=== PATIENT | female | born 1955 | race Caucasian/White ===

== ENCOUNTER 2019-07-04 11:00 | Inpatient (IN) ==
[2019-07-04 11:40] LABS: Appearance Urine Clear (Clear); Blood Urine Negative (Negative); Color Urine Dark Yellow; Glucose Urine UA Negative (Negative); Ketones Urine Negative (Negative); Leukocyte Esterase Urine Negative (Negative); Nitrite Urine Negative (Negative); Protein Urine Negative (Negative); Specific Gravity Urine 1.006 (1.000-1.030); Urobilinogen Urine Negative (Negative); pH Urine 6.5 (4.5-7.5)
[2019-07-04 11:42] LABS: Basophils # (auto) 0.06 K/uL (0-0.2); Eosinophils # (auto) 0.03 K/uL (0-0.5); Eosinophils % (auto) 0.5 %; Hematocrit (blood only) 39.9 % (37-47); Hemoglobin 13.7 g/dL (12.0-16.0); Immature Granulocytes # (auto) 0.01 K/uL (0.00-0.02); Immature Granulocytes % (auto) 0.2 %; Lymphocytes # (auto) 1.04 K/uL (1.2-3.4); Lymphocytes % (auto) 17.2 %; Mean Corpuscular Hemoglobin 31.8 pg (25-34); Mean Corpuscular Hgb Conc 34.3 g/dL (32-36); Mean Corpuscular Volume 92.6 fL (80-100); Mean Platelet Volume 12.2 fL (7.4-10.4); Monocytes # (auto) 0.48 K/uL (0.11-0.59); Monocytes % (auto) 7.9 %; Neutrophils # (auto) 4.44 K/uL (1.4-6.5); Neutrophils % (auto) 73.2 %; Platelet Count 324 K/uL (130-400); RDW Coefficient of Variation 15.2 % (11.5-14.5); Red Blood Count 4.31 M/uL (4.2-5.4); White Blood Count 6.06 K/uL (4.8-10.8)
[2019-07-04 12:07] LABS: Alanine Aminotransferase 663 U/L (12-78); Albumin Level 3.6 gm/dl (3.4-5.0); Alkaline Phosphatase 569 U/L (45-117); Aspartate Aminotransferase 255 U/L (15-37); Bilirubin,Total 22.3 mg/dl (0.2-1); Blood Urea Nitrogen 11 mg/dl (7-18); Calcium 9.5 mg/dl (8.5-10.1); Carbon Dioxide 23 mmol/L (21-32); Chloride 102 mmol/L (98-107); Glucose 112 mg/dl (70-99); Potassium 3.5 mmol/L (3.5-5.1); Sodium 133 mmol/L (136-145)
[2019-07-04 12:10] LABS: Bilirubin Urine 2+ (Negative); Ictotest Urine Positive (Negative)
[2019-07-04] MEDS: SODIUM CHLORIDE 0.9% 1000ML 1,000 ML IV SCH ×3 (12:16→17:50)
[2019-07-04 12:30] LABS: iSTAT Creatinine 1.2 mg/dl (0.6-1.3); iSTAT Hemoglobin 14.3 g/dl (12.0-16.0); iSTAT Ionized Calcium 1.13 mmol/l (1.12-1.32); iSTAT Potassium 3.9 mEq/L (3.3-5.0)
[2019-07-04 12:42] LABS: Bilirubin Direct 17.9 mg/dl (0-0.2)
[2019-07-04] MEDS ORDERED: IOVERSOL 100ml IV PRN (12:43)
--- NOTE | 2019-07-04 13:01 | CT Scan Report ---
CT SCAN OF THE ABDOMEN AND PELVIS WITH IV CONTRAST CLINICAL HISTORY: Jaundice. COMPARISON STUDY: No priors. TECHNIQUE: Following the IV administration of 92 cc of Optiray 320, CT scan of the abdomen and pelvi s is performed from the lung bases to the proximal femora. Images are reviewed in the axial, sagittal , and coronal planes. IV contrast was administered without complication. A dose lowering technique wa s utilized adhering to the principles of ALARA. CT DOSE: 333.71 mGy.cm FINDINGS: Lung bases: The heart is normal in size and without pericardial effusion. Emphysematous change is andrea pected. There is no airspace consolidation or pleural effusion. Dependent atelectasis is noted. Liver: The contrast-enhanced liver is normal in size, contour, and attenuation. There is moderate int rahepatic biliary ductal dilatation. The hepatic veins and portal veins are patent. There is a 1.5 cm lesion suggested in the right lobe of the liver on image #66. Gallbladder: The gallbladder is distended but otherwise normal in appearance. Spleen: Normal in size and attenuation. Pancreas: There is a 2.8 x 2.6 cm infiltrative low-attenuation lesion seen in the pancreatic head/nec k junction on image #132. There is atrophy of the distal pancreas with marked dilatation of the upstr eam pancreatic duct. This measures up to 10 mm in diameter. The mass lesion abuts but does not encase the superior mesenteric vein. This does not abut the superior mesenteric artery. The splenic vein is patent. Adrenal glands: Unremarkable. Kidneys: The contrast enhanced kidneys are normal in size and without hydronephrosis. The kidneys enh ance symmetrically. Abdominal vasculature: The abdominal aorta is normal in course and caliber noting mild atheroscleroti c calcification. Bowel: The small bowel and colon are normal in course and caliber. The appendix is well-visualized a nd normal. Peritoneum: There is no intraperitoneal free air or abdominal ascites. Lymphadenopathy: None. Pelvic viscera: The bladder, uterus, and adnexa are normal as imaged. Skeletal structures: The skeletal structures are osteopenic. No lytic or blastic lesions are seen. Ch ronic deformity and postoperative change is noted in the right hip. IMPRESSION: 1. There is a 2.8 cm infiltrative low-attenuation mass lesion seen at the pancreatic head/neck juncti on. Pancreatic adenocarcinoma is the diagnosis of exclusion and GI follow-up with ERCP and biopsy is recommended. 2. There is moderate intra and extrahepatic biliary ductal dilatation as well as dilatation of the pa ncreatic duct. 3. There is a 1.5 cm low-attenuation lesion suggested in the right hepatic lobe. Metastatic disease i s not excluded. 4. The pancreatic mass abuts does not encase the superior mesenteric vein. 5. Additional findings as above. Electronically signed by: Latrell San M.D. 07/04/2019 1:00 PM
--- NOTE | 2019-07-04 13:38 | Gastrointestinal Consultation ---
Date of Consultation July 04, 2019 Assessment & Plan (1) Jaundice: 64 year old generally healthy female who present w/ painless jaunidce after a course of Bactrim. She had CTAP given elevated LFT w/ TB > 20 which is concerning a 2.8 cm infiltrative low-attenuation mass lesion seen at the pancreatic head/neck junction abuts the SMV w/ double duct sign and a 1.5 cm low-attenuation lesion suggested in the right hepatic lobe. Metastatic disease is not excluded. DDX discussed w/ patient to include pancreatic CA +/- DILI Strict NPO Stat INR ERCP today for decompression Will need OP EGD/EUS for Bx Hold Bactrim, concern for DILI She has ongoing urinary symptoms, consider urinalysis Thank you for allowing us to participate in the care of this patient. Please call with any acute changes, questions or concerns. Please see addendum below with additional recommendation from my supervising physician. Present on Admission?: Yes (2) Pancreatic lesion: Present on Admission?: Yes Supervising Physician Co-Signing Physician Notes I performed a history and physical examination of the patient, including specifically on physical exam - soft, nontender abdomen. I have discussed the patient's management with Alivia. Please refer to the nurse practitioner's note for the documented findings and plan of care. 64 yrs old female patient presented with back pain and jaundice, recent use of Bactrim for UTI, imaging showed HOP mass with double duct sign, reports some chills and her bilirubin is >20. Need to evaluate for Pancreatic malignancy. Recommend: ERCP today for biliary decompression. EUS FNA next week as OP. Hold Bactrim and Macrobid for now. History of Present Illness Reason for Consultation: jaundice, panc pass Requesting Physician: Fabio Attending Physician: Dr. Guerra History of Present Illness 64 year old generally healthy female who presented w/ urinary symptoms. Initially treated w/ macrobid. She noted persistent urinary symptoms w/ intermittent upper back pain and was started on a course of Bactrim. Suggests that she noted about 24/48 hours ago she started noticing yellow skin/eyes which prompted ED evaluation. GI asked to evaluate as imaging concerning for pancreatic mass, liver lesion. Pt was seen in the ED, family at bedside. Notes somewhat decreased appetite for the past few months w/ associated 5/10 lb weight loss. Denies any other UGI symptoms - no nausea, vomiting, GERD, dysphagia. No change in bowel movements. No fevers but feels chillish. No CP, SOB + family history of HHT + family history of adenocarcinoma of unknown origin, concern for pancreatic in mom EGD/Colon: none CTAP: There is a 2.8 cm infiltrative low-attenuation mass lesion seen at the pancreatic head/neck junction. Pancreatic adenocarcinoma is the diagnosis of exclusion and GI follow-up with ERCP and biopsy is recommended. There is moderate intra and extrahepatic biliary ductal dilatation as well as dilatation of the pancreatic duct.There is a 1.5 cm low-attenuation lesion suggested in the right hepatic lobe. Metastatic disease is not excluded.The pancreatic mass abuts does not encase the superior mesenteric vein. Allergies Allergy/AdvReac Type Severity Reaction Status Date / Time No Known Allergies Allergy Unverified 07/04/19 12:55 Home Medications Home Medications Medication Instructions Recorded Confirmed Type sulfamethoxazole-trimethoprim 1 tab PO BID 07/04/19 07/04/19 History Patient History Medical History (Updated 07/04/19 @ 13:46 by Alivia Mabry) Jaundice Pancreatic lesion Social History Feels Safe at Home: Yes Smoking Status: Never smoker Review of Systems Constitutional: + chills, + anorexia and + weight loss; no fever and no fatigue Respiratory: no cough and no dyspnea Cardiovascular: no chest pain and no dyspnea Gastrointestinal: + early satiety; no abdominal pain, no coffee ground emesis, no hematemesis, no blood in stools and no melena Physical Exam Constitutional: well developed and well nourished Eyes: scleral icterus Neck: trachea midline Respiratory: normal respiratory effort Cardiovascular: Rate/Rhythm: regular rate and regular rhythm Gastrointestinal (Abdomen): Inspection/Auscultation: abdomen normal to inspection and normal bowel sounds Percussion/Palpation: abdomen soft; abdomen nontender, no guarding and abdomen not rigid Skin: + jaundice; no rashes Results & Data Vital Signs (Past 12 Hours) Vital Signs Temp Pulse Pulse Resp BP BP Pulse Ox 07/04/19 12:14 61 17 113/71 96 07/04/19 11:14 36.5 C 85 16 111/75 99 Laboratory Results 07/04/19 07/04/19 07/04/19 Range/Units 12:17 11: 11:28 WBC (4.8-10.8) K/uL RBC (4.2-5.4) M/uL Hgb (12.0-16.0) g/dL POC Hgb 14.3 (12.0-16.0) g/dl Hct (37-47) % POC Hct 42 (37-47) % MCV (80-100) fL MCH (25-34) pg MCHC (32-36) g/dL RDW Std Deviation (36.4-46.3) fL RDW Coeff of Rajesh (11.5-14.5) % Plt Count (130-400) K/uL MPV (7.4-10.4) fL Immature Gran % (Auto) % Neut % (Auto) % Lymph % (Auto) % [place] % (Auto) % Eos % (Auto) % Baso % (Auto) % Immature Gran # (Auto) (0.00-0.02) K/uL Neut # (Auto) (1.4-6.5) K/uL Lymph # (Auto) (1.2-3.4) K/uL [place] # (Auto) (0.11-0.59) K/uL Eos # (Auto) (0-0.5) K/uL Baso # (Auto) (0-0.2) K/uL POC Sodium 135 (135-144) mEq/L Sodium (136-145) mmol/L POC Potassium 3.9 (3.3-5.0) mEq/L Potassium (3.5-5.1) mmol/L POC Chloride 104 (101-112) mEq/L Chloride (98-107) mmol/L Carbon Dioxide (21-32) mmol/L POC Total CO2 24 (24-31) mEq/l Anion Gap (3-11) POC Anion Gap 12.0 L (16-25) mmol/L POC BUN 12 (7-18) mg/dl BUN (7-18) mg/dl Creatinine (0.6-1.2) mg/dl POC Creatinine 1.2 (0.6-1.3) mg/dl Est Cr Clr Drug Dosing Est GFR ( Amer) Est GFR (Non-Af Amer) BUN/Creatinine Ratio Glucose (70-99) mg/dl POC Glucose (other) 114 H (70-99) mg/dl Calcium (8.5-10.1) mg/dl POC Ioniz Calcium [place] 1.13 (1.12-1.32) mmol/l Total Bilirubin (0.2-1) mg/dl Direct Bilirubin (0-0.2) mg/dl AST (15-37) U/L ALT (12-78) U/L Alkaline Phosphatase (45-117) U/L Total Protein (6.4-8.2) gm/dl Albumin (3.4-5.0) gm/dl Globulin Albumin/Globulin Ratio Lipase (73-393) U/L Urine Color Dark Yellow Urine Appearance Clear (Clear) Urine pH 6.5 (4.5-7.5) Ur Specific [place] 1.006 (1.000-1.030) Urine Protein Negative (Negative) Urine Glucose (UA) Negative (Negative) Urine Ketones Negative (Negative) Urine Blood Negative (Negative) Urine Nitrite Negative (Negative) Urine Bilirubin 2+ H (Negative) Urine Urobilinogen Negative (Negative) Ur Leukocyte Esterase Negative (Negative) Miscellaneous Test Pending Miscellaneous Test 2 Pending 07/04/19 07/04/19 07/04/19 Range/Units 11:28 11:28 11:28 WBC 6.06 (4.8-10.8) K/uL RBC 4.31 (4.2-5.4) M/uL Hgb 13.7 (12.0-16.0) g/dL POC Hgb (12.0-16.0) g/dl Hct 39.9 (37-47) % POC Hct (37-47) % MCV 92.6 (80-100) fL MCH 31.8 (25-34) pg MCHC 34.3 (32-36) g/dL RDW Std Deviation 52.0 H (36.4-46.3) fL RDW Coeff of Rajesh 15.2 H (11.5-14.5) % Plt Count 324 (130-400) K/uL MPV 12.2 H (7.4-10.4) fL Immature Gran % (Auto) 0.2 % Neut % (Auto) 73.2 % Lymph % (Auto) 17.2 % [place] % (Auto) 7.9 % Eos % (Auto) 0.5 % Baso % (Auto) 1.0 % Immature Gran # (Auto) 0.01 (0.00-0.02) K/uL Neut # (Auto) 4.44 (1.4-6.5) K/uL Lymph # (Auto) 1.04 L (1.2-3.4) K/uL [place] # (Auto) 0.48 (0.11-0.59) K/uL Eos # (Auto) 0.03 (0-0.5) K/uL Baso # (Auto) 0.06 (0-0.2) K/uL POC Sodium (135-144) mEq/L Sodium 133 L (136-145) mmol/L POC Potassium (3.3-5.0) mEq/L Potassium 3.5 (3.5-5.1) mmol/L POC Chloride (101-112) mEq/L Chloride 102 (98-107) mmol/L Carbon Dioxide 23 (21-32) mmol/L POC Total CO2 (24-31) mEq/l Anion Gap 8.0 (3-11) POC Anion Gap (16-25) mmol/L POC BUN (7-18) mg/dl BUN 11 (7-18) mg/dl Creatinine (0.6-1.2) mg/dl POC Creatinine (0.6-1.3) mg/dl Est Cr Clr Drug Dosing TNP Est GFR ( Amer) TNP Est GFR (Non-Af Amer) TNP BUN/Creatinine Ratio TNP Glucose 112 H (70-99) mg/dl POC Glucose (other) (70-99) mg/dl Calcium 9.5 (8.5-10.1) mg/dl POC Ioniz Calcium [place] (1.12-1.32) mmol/l Total Bilirubin 22.3 H (0.2-1) mg/dl Direct Bilirubin 17.9 H (0-0.2) mg/dl AST 255 H (15-37) U/L ALT 663 H (12-78) U/L Alkaline Phosphatase 569 H (45-117) U/L Total Protein (6.4-8.2) gm/dl Albumin 3.6 (3.4-5.0) gm/dl Globulin TNP Albumin/Globulin Ratio TNP Lipase 176 (73-393) U/L Urine Color Urine Appearance (Clear) Urine pH (4.5-7.5) Ur Specific [place] (1.000-1.030) Urine Protein (Negative) Urine Glucose (UA) (Negative) Urine Ketones (Negative) Urine Blood (Negative) Urine Nitrite (Negative) Urine Bilirubin (Negative) Urine Urobilinogen (Negative) Ur Leukocyte Esterase (Negative) Miscellaneous Test Miscellaneous Test 2
[2019-07-04 14:03] LABS: Prothrombin Time 9.8 Seconds (9.0-12.0)
--- NOTE | 2019-07-04 15:13 | History & Physical Report ---
Date of Service July 04, 2019 Assessment & Plan (1) Jaundice: Jaundice is not clear in origin, possibly could be related to recent course of Bactrim-DILI. CT scan is concerning for 2.8 cm infiltrative low- attenuation mass seen in the pancreatic head/neck junction and SMV with double duct signs and a 1.5 cm low-attenuation lesion suggested the right hepatic lobe. Metastatic disease is not excluded. Differential diagnosis [facility] Vital signs every 4 hours Replenish electrolytes as needed Continue IV fluid hydration DVT prophylaxis SCDs and teds Continue n.p.o. Start INR INR ERCP today for decompression Will need OP EGD/EUS for Bx Hold Bactrim, concern for DILI She has ongoing urinary symptoms, consider urinalysis (2) Pancreatic lesion: Please see above the plan (3) Transaminitis: Patient will have ERCP. Continue n.p.o. Trend down transaminases Present on Admission?: Yes (4) Elevated bilirubin: Patient will have ERCP Trend down bilirubin. Appreciate GI recommendations and procedures. Follow-up with biopsy if any. Present on Admission?: Yes History of Present Illness Chief Complaint: Jaundice Primary Care Provider: Brigitte Decker MD Patient is a 64 years old female without significant past medical history who presents to the emergency room with a complaint of intermittent abdominal pain beginning 4 weeks ago. Patient noted that pain is diffuse and it was occurring while she was resting. At that time patient was in [place] in [place] and she visited urgent care where she was found to have urinary tract infection and treated with Macrobid which she took for 4 days. Patient was informed from the urgent care that she grew E. coli in her urine and then she was switched to Bactrim. Patient still states that her jaundice started yesterday and she started to have back pain again. At this time patient denies any pain and burning with urination. Patient denies fever, chills, chest pain, shortness of breath, abdominal pain, frequency or urgency and this time patient denies syncope or near syncope she also denies right upper quadrant pain hematemesis hematuria melena or dysuria. Patient reports taking Advil for back pain occasionally. Labs are reviewed WBC 6.06, hemoglobin 13.7, hematocrit 39.9, platelets 324. PT 9.8, INR 1, sodium 133, potassium 3.5, chloride 102, anion gap 8, BUN 11, creatinine 1.2, bilirubin 22.3, direct bilirubin 17.9, AST 255, ALT 663 alkaline phosphatase 569, BNP 226, lipase 176, TSH is 0.310., Urine 2+ bilirubin all other values negative. CT abdomen: There is a 2.8 cm infiltrative low-attenuation mass lesion seen at the pancreatic head neck junction. Pancreatic adenocarcinoma is a diagnosis of exclusion and GI follow-up with the ERCP and biopsy is recommended. Patient denies weight loss. There is a moderate intra-and extrahepatic biliary ductal dilatation as well as dilatation of the pancreatic duct. There is 1.5 cm low-attenuation lesion suggesting right hepatic lobe. Metastatic disease is not excluded. The pancreatic mass abuts does not encase the superior mesenteric vein. Decision was made to admit [facility] for further evaluation of jaundice. Allergies Allergy/AdvReac Type Severity Reaction Status Date / Time No Known Allergies Allergy Unverified 07/04/19 12:55 Home Medications Home Medications Medication Instructions Recorded Confirmed Type sulfamethoxazole-trimethoprim 1 tab PO BID 07/04/19 07/04/19 History Past Med/Surg History Medical History Jaundice (Acute) Pancreatic lesion (Acute) Surgical History No pertinent past surgical history Family History Other No pertinent family history Social History Preferred Language: Grenadian Communication Ability: Effective Coil Binder Required: No Beliefs That Will Affect Care: None Current Living Situation: Spouse Other Information That Helps Us Care for You: No Feels Safe at Home: Yes Safety Concerns: Feels Safe At This Time Smoking Status: Never smoker Hx Alcohol Use: Yes Alcohol type: wine Hx Substance Use: No Review of Systems Constitutional: + chills, + anorexia and + weight loss; no fever and no fatigue Gastrointestinal: + early satiety; no abdominal pain, no coffee ground emesis, no hematemesis, no blood in stools and no melena Physical Exam Constitutional: well developed and well nourished Neck: trachea midline Respiratory: normal respiratory effort Cardiovascular: Rate/Rhythm: regular rate and regular rhythm Gastrointestinal (Abdomen): Inspection/Auscultation: abdomen normal to inspection and normal bowel sounds Percussion/Palpation: abdomen soft; abdomen nontender, no guarding and abdomen not rigid Skin: + jaundice; no rashes Results & Data Vital Signs (Past 12 Hours) Vital Signs Temp Pulse Pulse Resp BP BP Pulse Ox 07/04/19 13:30 69 17 125/68 98 07/04/19 12:14 61 17 113/71 96 07/04/19 11:14 36.5 C 85 16 111/75 99 Code Status & VTE Plan VTE Prophylaxis Plan VTE Prophylaxis will be ordered: Yes PG Care Time/CCT Total # of Minutes Spent Total Time Spent with Patient: Total time spent is greater than 50% in coordination of care (as documented) at patient's floor/unit and/or counseling patient:
[2019-07-04] MEDS ORDERED: ALUMINUM/MAGNESIUM SUSP 30 ML UDC PO PRN (17:32)
[2019-07-04] MEDS ORDERED: ACETAMINOPHEN 325 MG TAB PO PRN (17:32)
[2019-07-04] MEDS ORDERED: KETOROLAC TROMETHAMINE 15 MG/ML VIAL IV PRN (17:32)
[2019-07-04] MEDS ORDERED: ZOLPIDEM TARTRATE 5 MG TAB PO PRN (17:32)
[2019-07-04] MEDS ORDERED: OXYCODONE HCL IR 5 MG TAB (IMMEDIATE RELEASE) PO PRN (17:32)
[2019-07-04] MEDS ORDERED: POLYETHYLENE (MIRALAX) 17 GM PACK PO PRN (17:32)
[2019-07-04] MEDS ORDERED: ONDANSETRON INJ 2 MG/ML 2 ML VIAL IV PRN (17:32)
[2019-07-04] MEDS ORDERED: MAGNESIUM HYDROXIDE SUSP 30 ML UDC PO PRN (17:32)
--- NOTE | 2019-07-04 17:51 | Emergency Department Note ---
Entered by Nadya Shell acting as a scribe for Tucker Guerra DO History of Present Illness General Chief complaint: Illness Stated complaint: REACTION TO MEDICATION Source: patient History of Present Illness Onset (ago): week(s) (4) Location: abdomen Pain Consistency: + intermittent Maximum Pain Intensity: 2 Exacerbated By: + rest Associated symptoms: + denies other symptoms (pain and burning with urination) and + other (back pain, jaundice, blood in urine) The patient is a 64 year old female who presents to the Emergency Room with complaints of intermittent abdominal pain beginning 4 weeks ago. She notes the pain is worse at night and while resting. The patient states she initially thought the pain was GERD, but notes it then moved into her back. She reports blood in her urine two weeks ago while in [place]. The patient states she visited an urgent care and was placed on Macrobid, which she took for 4 days, for an UTI. She notes she then received a call from the urgent care stating she had E.coli in her urine and was switched to Bactrim. The patient reports jaundice beginning yesterday. She notes her back pain returned. The patient denies pain and burning with urination. The patient denies a history of cancer, regular Tylenol use, and regular alcohol use. She reports she has been taking Advil for the back pain. 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 and A total of 10 systems reviewed and were otherwise negative Physical Exam Vital Signs Vital Signs - 24 hr 07/04/19 11:14 07/04/19 12:14 07/04/19 13:30 Temperature 36.5 C Temperature Source Oral Pulse Rate 85 Pulse Rate [Apical] 61 69 Pulse Rhythm [Apical] Regular Regular Respiratory Rate 16 17 17 Respiratory Effort / Characteristics Non-Labored Spontaneous Respiratory Depth Normal Normal Respiratory Pattern Regular Blood Pressure 111/75 Blood Pressure [Right Arm] 113/71 125/68 Blood Pressure Mean 87 Blood Pressure Mean [Right Arm] 85 87 Blood Pressure Position Sitting Pulse Oximetry 99 96 98 Oxygen Delivery Method Room Air Room Air Sepsis Recent Fever Within 48 Hours No Sepsis New/Unexplained Change in Mental Status No Sepsis Action Taken by Nursing No Action Required 07/04/19 15:00 Temperature Temperature Source Pulse Rate Pulse Rate [Apical] 71 Pulse Rhythm [Apical] Regular Respiratory Rate 18 Respiratory Effort / Characteristics Non-Labored Spontaneous Respiratory Depth Normal Respiratory Pattern Regular Blood Pressure Blood Pressure [Right Arm] 122/74 Blood Pressure Mean Blood Pressure Mean [Right Arm] 90 Blood Pressure Position Pulse Oximetry 96 Oxygen Delivery Method Room Air Sepsis Recent Fever Within 48 Hours Sepsis New/Unexplained Change in Mental Status Sepsis Action Taken by Nursing GENERAL: alert, well nourished, no distress, non-toxic, sitting up in bed EYE EXAM: normal conjunctiva OROPHARYNX: no exudate, no erythema, lips, buccal mucosa, and tongue normal and mucous membranes are moist NECK: supple, no nuchal rigidity, no adenopathy, non-tender LUNGS: Clear to auscultation. Normal chest wall mechanics HEART: no murmurs, S1 normal and S2 normal ABDOMEN: Faint tenderness in the epigastric region, abdomen soft, normo-active bowel sounds, no masses, no rebound or guarding. BACK: Back is symmetrical on inspection and there is no deformity, no midline tenderness, no CVA tenderness. SKIN: Jaundiced throughout UPPER EXTREMITIES: upper extremities are grossly normal. LOWER EXTREMITIES: No pitting edema. NEURO EXAM: Normal sensorium, cranial nerves II-XII grossly intact, normal speech, no gross weakness of arms, no gross weakness of legs. Course Course ED COURSE: Vital signs were reviewed and showed situational hypertension and tachycardia. The patients medical record was reviewed The above diagnostic studies were performed and reviewed. ED treatments and interventions as stated above. 1203: The patient was evaluated in room C06. A complete history and physical examination was performed. 1310: Upon reevaluation, the patient is resting more comfortably.I discussed my findings with the patient and she understands and agrees with the treatment plan. Based on the patients age, coexisting illnesses, exam and lab findings the decision to treat as an inpatient was made. I reviewed the patient's case with Dr. Mccarthy -Gastroenterology. Dr. Bell - [facility] Hospitalist will evaluate the patient for further management. The patient remained stable while under my care. The patient will be evaluated for further management. Administered Medications Sodium Chloride (Nss 1000ml) 1,000 mls @ 80 mls/hr IV .[id number] COLT Stop: 08/03/19 17:31 Last Admin: 07/04/19 17:50 Dose: 80 mls/hr Documented by: [id number] Discontinued Medications Sodium Chloride (Nss 1000ml) 1,000 mls @ 999 mls/hr IV .[id number] COLT Stop: 07/04/19 14:15 Last Infusion: 07/04/19 13:52 Dose: 0 mls/hr Documented by: [id number] Admin: 07/04/19 12:55 Dose: 999 mls/hr Documented by: [id number] Infusion: 07/04/19 12:55 Dose: 999 mls/hr Documented by: [id number] Admin: 07/04/19 12:16 Dose: 999 mls/hr Documented by: [id number] Ioversol (Optiray 320 100ml) 92 ml IV ONCE PRN PRN Reason: Interaction Checking Stop: 07/08/19 12:42 Last Admin: 07/04/19 12:43 Dose: 92 ml Documented by: [id number] Medical Decision Making Differential Diagnosis Differential diagnoses includes but is not limited to gastritis, peptic ulcer disease, GERD, gallbladder disease, pancreatitis, small bowel obstruction, acute coronary syndrome, pericarditis, ischemic bowel, irritable bowel disease, irri table bowel syndrome, appendicitis, diverticulitis, malignancy, hernia, urinary tract infection, torsion, /ectopic , perforation, trauma, infectious. Medical Records Attestation: I reviewed the patient's medical records. Home Medications Current Medication List: was personally reviewed by me Laboratory Data Attestation: I reviewed the patient's lab results. Result diagrams: 07/04/19 11:28 07/04/19 11:28 Lab Results 07/04/19 07/04/19 07/04/19 Range/Units 11:28 11:28 11:28 WBC 6.06 (4.8-10.8) K/uL RBC 4.31 (4.2-5.4) M/uL Hgb 13.7 (12.0-16.0) g/dL POC Hgb (12.0-16.0) g/dl Hct 39.9 (37-47) % POC Hct (37-47) % MCV 92.6 (80-100) fL MCH 31.8 (25-34) pg MCHC 34.3 (32-36) g/dL RDW Std Deviation 52.0 H (36.4-46.3) fL RDW Coeff of Rajesh 15.2 H (11.5-14.5) % Plt Count 324 (130-400) K/uL MPV 12.2 H (7.4-10.4) fL Immature Gran % (Auto) 0.2 % Neut % (Auto) 73.2 % Lymph % (Auto) 17.2 % [place] % (Auto) 7.9 % Eos % (Auto) 0.5 % Baso % (Auto) 1.0 % Immature Gran # (Auto) 0.01 (0.00-0.02) K/uL Neut # (Auto) 4.44 (1.4-6.5) K/uL Lymph # (Auto) 1.04 L (1.2-3.4) K/uL [place] # (Auto) 0.48 (0.11-0.59) K/uL Eos # (Auto) 0.03 (0-0.5) K/uL Baso # (Auto) 0.06 (0-0.2) K/uL PT (9.0-12.0) Seconds INR (0.9-1.1) POC Sodium (135-144) mEq/L Sodium 133 L (136-145) mmol/L POC Potassium (3.3-5.0) mEq/L Potassium 3.5 (3.5-5.1) mmol/L POC Chloride (101-112) mEq/L Chloride 102 (98-107) mmol/L Carbon Dioxide 23 (21-32) mmol/L POC Total CO2 (24-31) mEq/l Anion Gap 8.0 (3-11) POC Anion Gap (16-25) mmol/L POC BUN (7-18) mg/dl BUN 11 (7-18) mg/dl Creatinine (0.6-1.2) mg/dl POC Creatinine (0.6-1.3) mg/dl Est Cr Clr Drug Dosing TNP Est GFR ( Amer) TNP Est GFR (Non-Af Amer) TNP BUN/Creatinine Ratio TNP Glucose 112 H (70-99) mg/dl POC Glucose (other) (70-99) mg/dl Calcium 9.5 (8.5-10.1) mg/dl POC Ioniz Calcium [place] (1.12-1.32) mmol/l Total Bilirubin 22.3 H (0.2-1) mg/dl Direct Bilirubin 17.9 H (0-0.2) mg/dl AST 255 H (15-37) U/L ALT 663 H (12-78) U/L Alkaline Phosphatase 569 H (45-117) U/L Total Protein (6.4-8.2) gm/dl Albumin 3.6 (3.4-5.0) gm/dl Globulin TNP Albumin/Globulin Ratio TNP Lipase 176 (73-393) U/L Urine Color Urine Appearance (Clear) Urine pH (4.5-7.5) Ur Specific [place] (1.000-1.030) Urine Protein (Negative) Urine Glucose (UA) (Negative) Urine Ketones (Negative) Urine Blood (Negative) Urine Nitrite (Negative) Urine Bilirubin (Negative) Urine Urobilinogen (Negative) Ur Leukocyte Esterase (Negative) Hepatitis C Ab Screen (Neg) 07/04/19 07/04/19 07/04/19 Range/Units 11:28 11:28 11:29 WBC (4.8-10.8) K/uL RBC (4.2-5.4) M/uL Hgb (12.0-16.0) g/dL POC Hgb (12.0-16.0) g/dl Hct (37-47) % POC Hct (37-47) % MCV (80-100) fL MCH (25-34) pg MCHC (32-36) g/dL RDW Std Deviation (36.4-46.3) fL RDW Coeff of Rajesh (11.5-14.5) % Plt Count (130-400) K/uL MPV (7.4-10.4) fL Immature Gran % (Auto) % Neut % (Auto) % Lymph % (Auto) % [place] % (Auto) % Eos % (Auto) % Baso % (Auto) % Immature Gran # (Auto) (0.00-0.02) K/uL Neut # (Auto) (1.4-6.5) K/uL Lymph # (Auto) (1.2-3.4) K/uL [place] # (Auto) (0.11-0.59) K/uL Eos # (Auto) (0-0.5) K/uL Baso # (Auto) (0-0.2) K/uL PT 9.8 (9.0-12.0) Seconds INR 1.0 (0.9-1.1) POC Sodium (135-144) mEq/L Sodium (136-145) mmol/L POC Potassium (3.3-5.0) mEq/L Potassium (3.5-5.1) mmol/L POC Chloride (101-112) mEq/L Chloride (98-107) mmol/L Carbon Dioxide (21-32) mmol/L POC Total CO2 (24-31) mEq/l Anion Gap (3-11) POC Anion Gap (16-25) mmol/L POC BUN (7-18) mg/dl BUN (7-18) mg/dl Creatinine (0.6-1.2) mg/dl POC Creatinine (0.6-1.3) mg/dl Est Cr Clr Drug Dosing Est GFR ( Amer) Est GFR (Non-Af Amer) BUN/Creatinine Ratio Glucose (70-99) mg/dl POC Glucose (other) (70-99) mg/dl Calcium (8.5-10.1) mg/dl POC Ioniz Calcium [place] (1.12-1.32) mmol/l Total Bilirubin (0.2-1) mg/dl Direct Bilirubin (0-0.2) mg/dl AST (15-37) U/L ALT (12-78) U/L Alkaline Phosphatase (45-117) U/L Total Protein (6.4-8.2) gm/dl Albumin (3.4-5.0) gm/dl Globulin Albumin/Globulin Ratio Lipase (73-393) U/L Urine Color Dark Yellow Urine Appearance Clear (Clear) Urine pH 6.5 (4.5-7.5) Ur Specific [place] 1.006 (1.000-1.030) Urine Protein Negative (Negative) Urine Glucose (UA) Negative (Negative) Urine Ketones Negative (Negative) Urine Blood Negative (Negative) Urine Nitrite Negative (Negative) Urine Bilirubin 2+ H (Negative) Urine Urobilinogen Negative (Negative) Ur Leukocyte Esterase Negative (Negative) Hepatitis C Ab Screen Neg (Neg) 07/04/19 Range/Units 12:17 WBC (4.8-10.8) K/uL RBC (4.2-5.4) M/uL Hgb (12.0-16.0) g/dL POC Hgb 14.3 (12.0-16.0) g/dl Hct (37-47) % POC Hct 42 (37-47) % MCV (80-100) fL MCH (25-34) pg MCHC (32-36) g/dL RDW Std Deviation (36.4-46.3) fL RDW Coeff of Rajesh (11.5-14.5) % Plt Count (130-400) K/uL MPV (7.4-10.4) fL Immature Gran % (Auto) % Neut % (Auto) % Lymph % (Auto) % [place] % (Auto) % Eos % (Auto) % Baso % (Auto) % Immature Gran # (Auto) (0.00-0.02) K/uL Neut # (Auto) (1.4-6.5) K/uL Lymph # (Auto) (1.2-3.4) K/uL [place] # (Auto) (0.11-0.59) K/uL Eos # (Auto) (0-0.5) K/uL Baso # (Auto) (0-0.2) K/uL PT (9.0-12.0) Seconds INR (0.9-1.1) POC Sodium 135 (135-144) mEq/L Sodium (136-145) mmol/L POC Potassium 3.9 (3.3-5.0) mEq/L Potassium (3.5-5.1) mmol/L POC Chloride 104 (101-112) mEq/L Chloride (98-107) mmol/L Carbon Dioxide (21-32) mmol/L POC Total CO2 24 (24-31) mEq/l Anion Gap (3-11) POC Anion Gap 12.0 L (16-25) mmol/L POC BUN 12 (7-18) mg/dl BUN (7-18) mg/dl Creatinine (0.6-1.2) mg/dl POC Creatinine 1.2 (0.6-1.3) mg/dl Est Cr Clr Drug Dosing Est GFR ( Amer) Est GFR (Non-Af Amer) BUN/Creatinine Ratio Glucose (70-99) mg/dl POC Glucose (other) 114 H (70-99) mg/dl Calcium (8.5-10.1) mg/dl POC Ioniz Calcium [place] 1.13 (1.12-1.32) mmol/l Total Bilirubin (0.2-1) mg/dl Direct Bilirubin (0-0.2) mg/dl AST (15-37) U/L ALT (12-78) U/L Alkaline Phosphatase (45-117) U/L Total Protein (6.4-8.2) gm/dl Albumin (3.4-5.0) gm/dl Globulin Albumin/Globulin Ratio Lipase (73-393) U/L Urine Color Urine Appearance (Clear) Urine pH (4.5-7.5) Ur Specific [place] (1.000-1.030) Urine Protein (Negative) Urine Glucose (UA) (Negative) Urine Ketones (Negative) Urine Blood (Negative) Urine Nitrite (Negative) Urine Bilirubin (Negative) Urine Urobilinogen (Negative) Ur Leukocyte Esterase (Negative) Hepatitis C Ab Screen (Neg) Imaging Data Radiologist's Impression: Radiology results as stated below per my review and the radiologist's interpretation: CT SCAN OF THE ABDOMEN AND PELVIS WITH IV CONTRAST CLINICAL HISTORY: Jaundice. COMPARISON STUDY: No priors. TECHNIQUE: Following the IV administration of 92 cc of Optiray 320, CT scan of the abdomen and pelvis is performed from the lung bases to the proximal femora. Images are reviewed in the axial, sagittal, and coronal planes. IV contrast was administered without complication. A dose lowering technique was utilized adhering to the principles of ALARA. CT DOSE: 333.71 mGy.cm FINDINGS: Lung bases: The heart is normal in size and without pericardial effusion. Emphysematous change is suspected. There is no airspace consolidation or pleural effusion. Dependent atelectasis is noted. Liver: The contrast-enhanced liver is normal in size, contour, and attenuation. There is moderate intrahepatic biliary ductal dilatation. The hepatic veins and portal veins are patent. There is a 1.5 cm lesion suggested in the right lobe of the liver on image #66. Gallbladder: The gallbladder is distended but otherwise normal in appearance. Spleen: Normal in size and attenuation. Pancreas: There is a 2.8 x 2.6 cm infiltrative low-attenuation lesion seen in the pancreatic head/neck junction on image #132. There is atrophy of the distal pancreas with marked dilatation of the upstream pancreatic duct. This measures up to 10 mm in diameter. The mass lesion abuts but does not encase the superior mesenteric vein. This does not abut the superior mesenteric artery. The splenic vein is patent. Adrenal glands: Unremarkable. Kidneys: The contrast enhanced kidneys are normal in size and without hydronephrosis. The kidneys enhance symmetrically. Abdominal vasculature: The abdominal aorta is normal in course and caliber noting mild atherosclerotic calcification. Bowel: The small bowel and colon are normal in course and caliber. The appendix is well-visualized and normal. Peritoneum: There is no intraperitoneal free air or abdominal ascites. Lymphadenopathy: None. Pelvic viscera: The bladder, uterus, and adnexa are normal as imaged. Skeletal structures: The skeletal structures are osteopenic. No lytic or blastic lesions are seen. Chronic deformity and postoperative change is noted in the right hip. IMPRESSION: 1. There is a 2.8 cm infiltrative low-attenuation mass lesion seen at the pancreatic head/neck junction. Pancreatic adenocarcinoma is the diagnosis of exclusion and GI follow-up with ERCP and biopsy is recommended. 2. There is moderate intra and extrahepatic biliary ductal dilatation as well as dilatation of the pancreatic duct. 3. There is a 1.5 cm low-attenuation lesion suggested in the right hepatic lobe. Metastatic disease is not excluded. 4. The pancreatic mass abuts does not encase the superior mesenteric vein. 5. Additional findings as above. Electronically signed by: Latrell San M.D. 07/04/2019 1:00 PM Blood Pressure Blood Pressure Findings: Elevated blood pressure Blood Pressure Disposition: elevated BP felt to be situational MDM Narrative Patient is a 64-year-old female who presents to the ER for abdominal pain which is been present for the past 4 weeks which is been dull going through to the back. She notes an past 2 weeks she was treated for UTI with Macrobid and Bactrim. Past 4 days she has become more jaundiced. IV was status post orders obtained and showed no significant leukocytosis or anemia. BMP was unremarkable with exception of a mild hyponatremia. Creatinine was 1.2 but was obtained from POC due to the icterus. Bilirubin was 22 direct bilirubin was 18 AST was 255 ALT was 660 alk phos was elevated at 570 CT the abdomen pelvis showed concern for an obstructive lesion at the head of the pancreas. UA was unremarkable. Discussed with hospitalist, the patient and the family as well as GI. Patient will be taken to the Endo suite for a scope. Patient family were updated at bedside and patient was admitted to the hospital for further work-up. Impression & Plan Transaminitis, Elevated bilirubin, Jaundice, Pancreatic lesion Discharge Plan Visit Data Chief Complaint: Illness Stated Complaint: REACTION TO MEDICATION ED Provider: Tucker Guerra Discharge Problem: Transaminitis, Elevated bilirubin, Jaundice, Pancreatic lesion Patient Disposition: Being Evaluated by Hospitalist Discharge Instructions Interventions: ED Discharge Assessment Last Done: 07/04/19 17:05 The danielitoibe's documentation has been prepared under my direction and personally reviewed by me in its entirety. I confirm that the note above accurately reflects all work, treatment, procedures, and medical decision making performed by me.
[2019-07-04 18:46] LABS: Thyroid Stimulating Hormone 0.31 uIu/ml (0.300-4.500)
--- NOTE | 2019-07-04 20:36 | Anesthesiology Consultation ---
Date of Service July 04, 2019 History Surgery Operation Date: 07/04/19 14:30 Proposed Procedures p Endoscopic Retrograde Cholangiopancreatogram - Palak Mccarthy MD Height/Weight Height: 5 ft 8 in Weight: 70.7 kg Allergies Allergy/AdvReac Type Severity Reaction Status Date / Time No Known Allergies Allergy Unverified 07/04/19 12:55 Medications Home Medications Medication Instructions Recorded Confirmed Last Taken sulfamethoxazole-trimethoprim 1 tab PO BID 07/04/19 07/04/19 07/04/19 Active Medications Generic Name Dose Route Start Last Admin Trade Name Freq PRN Reason Stop Dose Admin Sodium Chloride 1,000 mls @ 80 mls/hr 07/04/19 17:32 07/04/19 17:50 Nss 1000ml IV 08/03/19 17:31 80 mls/hr .[id number] COLT Administration Past Medical History Medical History Jaundice (Acute) Pancreatic lesion (Acute) Past Family History Family History Other No pertinent family history Past Surgical History Surgical History No pertinent past surgical history Social History Smoking Status: Never smoker Hx Alcohol Use: Yes Alcohol type: wine alcohol intake frequency: a few times a month Hx Substance Use: No Physical Exam Vital Signs Last Vital Signs Temp 36.8 C 07/04/19 20:01 Pulse 64 07/04/19 20:01 Resp 18 07/04/19 20:01 BP 120/75 07/04/19 20:01 Pulse Ox 96 07/04/19 20:01 Testing Laboratory Results 07/04/19 11:28 07/04/19 11:28 PT 9.8 Seconds (9.0-12.0) 07/04/19 11: INR 1.0 (0.9-1.1) 07/04/19 11: Urine Color Dark Yellow 07/04/19 11:29 Urine Appearance Clear (Clear) 07/04/19 11: Urine pH 6.5 (4.5-7.5) 07/04/19 11: Ur Specific [place] 1.006 (1.000-1.030) 11/29/19 11:29 Urine Protein Negative (Negative) 07/04/19 11:29 Urine Glucose (UA) Negative (Negative) 07/04/19 11:29 Urine Ketones Negative (Negative) 07/04/19 11:29 Urine Nitrite Negative (Negative) 07/04/19 11:29 Ur Leukocyte Esterase Negative (Negative) 07/04/19 11:29 07/04/19 12:17 POC Glucose (other) 114 H
--- NOTE | 2019-07-04 21:52 | Progress Note ---
Date of Service July 04, 2019 Subjective ERCP is schedule by OR to be done tomorrow at 7:30 AM Results & Data Vital Signs (Past 12 Hours) Vital Signs Temp Pulse Pulse Pulse Resp BP BP 07/04/19 20:01 36.8 C 64 18 07/04/19 18:12 74 07/04/19 17:38 37.1 C 72 16 124/67 07/04/19 17:00 84 17 07/04/19 15:00 71 18 07/04/19 13:30 69 17 07/04/19 12:14 61 17 07/04/19 11:14 36.5 C 85 16 111/75 BP Pulse Ox 07/04/19 20:01 120/75 96 07/04/19 18:12 07/04/19 17:38 97 07/04/19 17:00 144/72 H 100 07/04/19 15:00 122/74 96 07/04/19 13:30 125/68 98 07/04/19 12:14 113/71 96 07/04/19 11:14 99
[2019-07-05] MEDS: SODIUM CHLORIDE 0.9% 1000ML 1,000 ML IV SCH (05:48)
[2019-07-05 06:19] LABS: Basophils # (auto) 0.05 K/uL (0-0.2); Basophils % (auto) 1.1 %; Eosinophils # (auto) 0.01 K/uL (0-0.5); Eosinophils % (auto) 0.2 %; Hematocrit (blood only) 33.2 % (37-47); Hemoglobin 11.5 g/dL (12.0-16.0); Immature Granulocytes # (auto) 0.01 K/uL (0.00-0.02); Immature Granulocytes % (auto) 0.2 %; Lymphocytes # (auto) 0.82 K/uL (1.2-3.4); Lymphocytes % (auto) 18.3 %; Mean Corpuscular Hgb Conc 34.6 g/dL (32-36); Mean Corpuscular Volume 92.5 fL (80-100); Mean Platelet Volume 11.8 fL (7.4-10.4); Monocytes # (auto) 0.32 K/uL (0.11-0.59); Monocytes % (auto) 7.1 %; Neutrophils # (auto) 3.27 K/uL (1.4-6.5); Neutrophils % (auto) 73.1 %; Platelet Count 262 K/uL (130-400); RDW Coefficient of Variation 15.3 % (11.5-14.5); RDW Standard Deviation 51.8 fL (36.4-46.3); Red Blood Count 3.59 M/uL (4.2-5.4); White Blood Count 4.48 K/uL (4.8-10.8)
[2019-07-05 06:28] LABS: Partial Thromboplastin Ratio 0.9; Partial Thromboplastin Time 23.8 Seconds (21.0-31.0); Prothrombin Time 10.5 Seconds (9.0-12.0)
[2019-07-05] MEDS ORDERED: fentaNYL citrate 100 MCG/2 ML VIAL ONE (06:58)
[2019-07-05] MEDS ORDERED: MIDAZOLAM HCL 1 MG/ML 2ML VIAL ONE (06:58)
--- NOTE | 2019-07-05 07:20 | History & Physical Bridge Note ---
Date of Service July 05, 2019 History & Physical Bridge Note I have examined the patient, reviewed the History & Physical and in the interval since the performance of the History & Physical I have noted the following changes of clinical significance: no changes noted
[2019-07-05 07:24] LABS: Albumin Level 2.7 gm/dl (3.4-5.0); BUN Creatinine Ratio 12.6 (10-20); Bilirubin,Total 18.3 mg/dl (0.2-1); Calcium 8.5 mg/dl (8.5-10.1); Creatinine Clr Calc Pharmacy 59.1 ml/min; Est GFR (African American) 71.5; Est GFR (Non-African American) 61.7; Globulin 2.6 gm/dl (2.5-4.0); Potassium 3.9 mmol/L (3.5-5.1); Total Protein 5.3 gm/dl (6.4-8.2)
[2019-07-05] MEDS ORDERED: INDOMETHACIN 50 MG SUPP PR ONE (07:25)
[2019-07-05 07:27] LABS: Estimated Average Glucose 117 mg/dl; Hemoglobin A1C 5.7 % (4.5-5.6)
[2019-07-05] MEDS ORDERED: INDOMETHACIN 50 MG SUPP PR SCH (07:30)
[2019-07-05] MEDS ORDERED: PROMETHAZINE HCL 6.25 MG in SODIUM CHLORIDE 0.9% 50 ML IV PRN (07:32)
[2019-07-05] MEDS ORDERED: ePHEDrine sulfate 50 MG/ML AMP IV PRN (07:32)
[2019-07-05] MEDS ORDERED: fentaNYL citrate 100 MCG/2 ML VIAL IV PRN (07:32)
[2019-07-05] MEDS ORDERED: ATROPINE SULFATE 0.1 MG/ML 10ML SYR IV PRN (07:32)
[2019-07-05] MEDS ORDERED: ONDANSETRON INJ 2 MG/ML 2 ML VIAL IV PRN (07:32)
[2019-07-05] MEDS ORDERED: SUCCINYLCHOLINE CHLORIDE 20 MG/ML 10 ML VIAL ONE (07:51)
[2019-07-05] MEDS ORDERED: PROPOFOL IV EMULSION 10 MG/ML 20 ML VIAL IV ONE (07:52)
[2019-07-05] MEDS ORDERED: LIDOCAINE HCL 2% 2 ML VIAL/AMP(20MG/ML) INFIL ONE (07:52)
[2019-07-05] MEDS ORDERED: ONDANSETRON INJ 2 MG/ML 2 ML VIAL ONE (07:54)
[2019-07-05] MEDS ORDERED: DEXAMETHASONE SOD INJ 4 MG/ML VIAL ONE (07:54)
[2019-07-05] MEDS ORDERED: LARYING-O-JET KIT (LTA) ONE (08:02)
--- NOTE | 2019-07-05 08:12 | Operative Report ---
Post Operative Report Pre & Post Diagnosis Operation Date: 07/04/19 14:30 <No data on this case meets the specified criteria> Operation Date: 07/05/19 07:30 Pre-Op Diagnosis: Jaundice Post-Op Diagnosis: Jaundice I identified the patient and participated in the time-out.: Yes Procedure Operation Date: 07/04/19 14:30 <No data on this case meets the specified criteria> Operation Date: 07/05/19 07:30 Actual Procedures p Endoscopic retrograde cholangiopancreatography, biliary stent placement - Palak Mccarthy MD Surgeon Palak Mccarthy MD Administrative Clerk None Estimated Blood Loss 0 Findings See Below (CBD stricture, Brushing for cytology and stent placed) Specimens Biliary stricture cytology Description of Procedure ERCP I attest to the content of the Intraoperative Record and any orders documented therein. Any exceptions are noted below.
--- NOTE | 2019-07-05 08:40 | GI REPORT ---
Patient Name: Niharika Swartz Procedure Date: 07/05/2019 7:38 AM Date of : 1955 Admit Type: Inpatient Age: 64 Gender: Female Attending MD: Palak Mccarthy MD Procedure: ERCP Providers: Palak Mccarthy MD Referring MD: Brigitte Decker, Zbigniew Bell Md, Fletcher Randolph Md Indications: Biliary dilation on Computed Tomogram Scan, Jaundice, Elevated liver enzymes Medicines: General Anesthesia Complications: No immediate complications. Estimated Blood Loss: Estimated blood loss: none. Procedure: Pre-Anesthesia Assessment: - Prior to the procedure, a History and Physical was performed, and patient medications, allergies and sensitivities were reviewed. The patient's tolerance of previous anesthesia was reviewed. - The risks and benefits of the procedure and the sedation options and risks were discussed with the patient. All questions were answered and informed consent was obtained. - Patient identification and proposed procedure were verified prior to the procedure by the physician and the nurse. The procedure was verified in the procedure room. - Pre-procedure physical examination revealed no contraindications to sedation. After obtaining informed consent, the scope was passed under direct vision. Throughout the procedure, the patient's blood pressure, pulse, and oxygen saturations were monitored continuously. The scope was introduced through the mouth, and advanced to the duodenum and used to inject contrast into the bile duct. The ERCP was accomplished without difficulty. The patient tolerated the procedure well. Findings: The outsewer film was normal. The esophagus was successfully intubated under direct vision. The scope was advanced to a normal major papilla in the descending duodenum without detailed examination of the pharynx, larynx and associated structures, and upper GI tract. The upper GI tract was grossly normal. A 0.035 inch straight standard Acrobat wire was passed into the biliary tree from the first attempt. The Fusion OMNI sphincterotome was passed over the guidewire and the bile duct was then deeply cannulated. Contrast was injected. I personally interpreted the bile duct images. Ductal flow of contrast was adequate. Image quality was adequate. Contrast extended to the main bile duct. The middle and upper third of the main bile duct were markedly dilated, secondary to a distal stricture. The largest diameter was 12 mm. The lower third of the main bile duct contained a single severe stenosis 20 mm in length. Biliary sphincterotomy was made with a monofilament traction (standard) sphincterotome using ERBE electrocautery. There was no post-sphincterotomy bleeding. The biliary tree was swept with an 11.5 mm balloon starting at the bifurcation. Dark, thick sludge was swept from the duct. Cells for cytology were obtained by brushing in the lower third of the main bile duct. Verification of patient identification for the specimen was done by the physician using the patient's name and date. One 7 Fr by 7 cm plastic biliary stent with a single external pigtail and a single internal pigtail was placed into the common bile duct. Bile flowed through the stent. The stent was in good position. Indomethacin 100 mg was given via suppository to decrease the risk of post-ERCP pancreatitis (PEP). PD was not cannulated. Impression: - A single severe biliary stricture was found in the lower third of the main bile duct with upstream biliary ductal dilation. The stricture was malignant appearing. Cells for cytology obtained from the stricture. - A biliary sphincterotomy was performed. - One plastic biliary stent was placed into the common bile duct. Recommendation: - [facility] patient to [facility] for [facility] care. Can discharge home today. - Avoid aspirin and nonsteroidal anti-inflammatory medicines for 5 days. - Await cytology results. - Upper endoscopic ultrasound (UEUS) for FNA of the pancreatic head mass scheduled on 07/10/2019 at 8:00AM at [facility]. - Resume regular diet today. - Return to referring physician. Palak Mccarthy MD 07/05/2019 8:39:55 AM This report has been signed electronically. Note Initiated On: 07/05/2019 7:38 AM Number of Addenda: 0 I attest to the content of the Intraoperative Record and orders documented therein, exceptions below {[id number]}
--- NOTE | 2019-07-05 09:07 | Anesthesiology Progress Note ---
Date of Service July 05, 2019 Anesthesia Post Procedure Vital Signs Vital Signs: Temp Pulse Pulse Pulse Resp BP BP 07/05/19 09:00 36.4 C L 69 16 07/05/19 08:50 70 16 07/05/19 08:40 72 16 07/05/19 08:30 72 16 07/05/19 08:22 36.5 C 79 16 07/05/19 07:00 36.8 C 68 18 106/67 07/05/19 03:27 36.9 C 79 18 07/04/19 23:10 37 C 77 18 07/04/19 22:59 77 07/04/19 20:01 36.8 C 64 18 07/04/19 18:12 74 07/04/19 17:38 37.1 C 72 16 124/67 07/04/19 17:00 84 17 07/04/19 15:00 71 18 07/04/19 13:30 69 17 07/04/19 12:14 61 17 07/04/19 11:14 36.5 C 85 16 111/75 BP Pulse Ox 07/05/19 09:00 124/74 98 07/05/19 08:50 116/67 99 07/05/19 08:40 118/74 99 07/05/19 08:30 118/67 100 07/05/19 08:22 117/72 100 07/05/19 07:00 96 07/05/19 03:27 105/56 L 96 07/04/19 23:10 99/59 L 97 07/04/19 22:59 07/04/19 20:01 120/75 96 07/04/19 18:12 07/04/19 17:38 97 07/04/19 17:00 144/72 H 100 07/04/19 15:00 122/74 96 07/04/19 13:30 125/68 98 07/04/19 12:14 113/71 96 07/04/19 11:14 99 Pain Intensity Back: Pain Intensity: 4 Transfer of Care Handoff Completed per policy Notes Mental Status: alert / awake / arousable Patient Amnestic to Procedure: Yes Nausea / Vomiting: adequately controlled Pain: adequately controlled Airway Patency, RR, SpO2: stable & adequate BP & HR: stable & adequate Hydration State: stable & adequate Anesthetic Complications: no major complications apparent
--- NOTE | 2019-07-05 09:57 | Fluoroscopy Report ---
[place] ERCP biliary ductal CLINICAL HISTORY: ERCP COMPARISON STUDY: CT 07/04/2019 FLUOROSCOPY TIME: 30 seconds NUMBER OF FLUOROSCOPIC IMAGES: 5 FINDINGS: Retrograde cannulation and opacification of the common bile duct shows dilatation of the pr oximal to mid common bile duct. Appears to be a probable stenotic process the distal common duct. This is followed by placement of a indwelling stent. Stent appears to be in good position. IMPRESSION: Successful retrograde opacification of the biliary ductal system followed by stent placem ent. Irregularity and narrowing of the distal common bile duct possibly neoplastic. The above report was generated using voice recognition software. It may contain grammatical, syntax or spelling errors. Electronically signed by: Josh Smith M.D. 07/05/2019 9:56 AM
[2019-07-05] MEDS ORDERED: ONDANSETRON HOME PACK 4MG OD TAB PO ONE (10:45)
--- NOTE | 2019-07-05 16:11 | Discharge Summary ---
Date of Service July 05, 2019 Admission HPI Per Admitting Provider Patient is a 64 years old female without significant past medical history who presents to the emergency room with a complaint of intermittent abdominal pain beginning 4 weeks ago. Patient noted that pain is diffuse and it was occurring while she was resting. At that time patient was in [place] in [place] and she visited urgent care where she was found to have urinary tract infection and treated with Macrobid which she took for 4 days. Patient was informed from the urgent care that she grew E. coli in her urine and then she was switched to Bactrim. Patient still states that her jaundice started yesterday and she started to have back pain again. At this time patient denies any pain and burning with urination. Patient denies fever, chills, chest pain, shortness of breath, abdominal pain, frequency or urgency and this time patient denies syncope or near syncope she also denies right upper quadrant pain hematemesis hematuria melena or dysuria. Patient reports taking Advil for back pain occasionally. Labs are reviewed WBC 6.06, hemoglobin 13.7, hematocrit 39.9, platelets 324. PT 9.8, INR 1, sodium 133, potassium 3.5, chloride 102, anion gap 8, BUN 11, creatinine 1.2, bilirubin 22.3, direct bilirubin 17.9, AST 255, ALT 663 alkaline phosphatase 569, BNP 226, lipase 176, TSH is 0.310., Urine 2+ bilirubin all other values negative. CT abdomen: There is a 2.8 cm infiltrative low-attenuation mass lesion seen at the pancreatic head neck junction. Pancreatic adenocarcinoma is a diagnosis of exclusion and GI follow-up with the ERCP and biopsy is recommended. Patient denies weight loss. There is a moderate intra-and extrahepatic biliary ductal dilatation as well as dilatation of the pancreatic duct. There is 1.5 cm low-attenuation lesion suggesting right hepatic lobe. Metastatic disease is not excluded. The pancreatic mass abuts does not encase the superior mesenteric vein. Decision was made to admit patient for further evaluation of jaundice. Principal Diagnosis Jaundice, likely pancreatic cancer Discharge Exam Constitutional well developed and well nourished Neck trachea midline Respiratory normal respiratory effort Cardiovascular Rate/Rhythm: regular rate and regular rhythm Gastrointestinal (Abdomen) Inspection/Auscultation: abdomen normal to inspection and normal bowel sounds Percussion/Palpation: abdomen soft; abdomen nontender, no guarding and abdomen not rigid Skin + jaundice; no rashes Discharge Data Allergies Allergy/AdvReac Type Severity Reaction Status Date / Time No Known Allergies Allergy Unverified 07/04/19 12:55 Consultations 07/04/19 13:27 ED Decision to Admit Stat Procedures Performed Operation Date: 07/04/19 14:30 <No data on this case meets the specified criteria> Operation Date: 07/05/19 07:30 Actual Procedures p Endoscopic retrograde cholangiopancreatography, biliary stent placement - Palak Mccarthy MD Ordered Studies 07/04/19 12:03 CT abd pelvis IV con only Stat 07/05/19 07:00 [place] ERCP biliary ductal Routine Hospital Course (1) Jaundice: Likely pancreatic cancer. - She underwent ERCP on 07/05 which showed a single stricture. It was opened and stent was placed. Cytology sent. - Follow up with GI on 07/10/2019 for EUS for biopsy. - Told to not take ASA or NSAID x 5 days. Informed to return to the hospital with severe symptoms. (2) Pancreatic lesion: Please see above the plan (3) Transaminitis: Due to likely pancreatic cancer. (4) Elevated bilirubin: Above Total Time Total Time Spent Total Time Spent (In Minutes): 35 Discharge Plan Discharge Items Patient Disposition: Home - Self-Care Reason For Visit: JAUNDICE,PANCREATIC LESION Discharge Diagnosis: Jaundice, concern for pancreatic cancer Activity: Resume your previous activity Non-emergency contact: Primary Care Provider and Drapery Estimator Call non-emergency contact if: your symptoms worsen and your temperature is above 101 Follow-up/Referrals: Brigitte Decker MD [Primary Care Provider] - Palak Mccarthy MD [Hospitalist] - 07/10/19 7:00 am (PLEASE NOTE: This appointment is in the [facility] Office, NOT the [place] office.) Diet: Regular Addtl Attending Provider Instructions: You had an ERCP at [facility]. Do not take any aspirin or NSAIDs (ibuprofen, Motrin, Advil, naproxen) for 5 days. You can take acetaminophen (Tylenol) for pain, within the normal bottle recommendations. Your next appointment is at 7:00am on July 10 at the [facility] building. Please call Dr. Mccarthy's office with any nausea, vomiting, abdominal pain (especially that shoots to the back), fever > 101 degrees, or chills. If you are having any high fevers, significant nausea, abdominal pain, lightheadedness, or other concerning symptoms, please call or go straight to the Emergency Department. Pending Studies at Discharge: Yes (ERCP cytology) Stand-Alone Forms: My [facility], Smoking Cessation Medications and DC Order Prescriptions: New ondansetron HCl [Zofran] 4 mg tablet 4 mg PO Q6H PRN (Reason: nausea and vomiting) Qty: 20 RF: 0 Discontinued sulfamethoxazole-trimethoprim 800-160 mg tablet 1 tab PO BID RF: 0 Discharge Orders: Discharge Order (Routine); Ordered 07/05/19 Ordered By: Fletcher Randolph Admission Data Admit Date/Time: 07/04/19 15:10 Attending Provider: Fletcher Randolph Admit Provider: Zbigniew Bell Primary Care Provider: Brigitte Decker Other Providers: Fletcher Randolph ; Zbigniew Bell Other Interventions: Discharge Summary Assessment (RN) Last Done: 07/05/19 10:43 DC Date/Time DO NOT enter until pt leaves facility: 07/05/19 11:57
== END 2019-07-05 11:57 | disposition home or self-care (01) | DRG 436 ==
LOC: ED 11:00 → 2N 15:10 → SUATTDRO 15:10 → 2N 17:05

== ENCOUNTER 2019-10-04 15:57 | Observation (INO) ==
[2019-10-04] MEDS ORDERED: SODIUM CHLORIDE 0.9% 1000ML 1,000 ML IV ONE ×2 (16:10→16:11)
[2019-10-04 16:53] LABS: Hematocrit (blood only) 31.8 % (37-47); Hemoglobin 10.7 g/dL (12.0-16.0); Mean Corpuscular Hemoglobin 31.8 pg (25-34); Mean Corpuscular Hgb Conc 33.6 g/dL (32-36); Mean Corpuscular Volume 94.6 fL (80-100); RDW Coefficient of Variation 15.6 % (11.5-14.5); RDW Standard Deviation 53.2 fL (36.4-46.3); Red Blood Count 3.36 M/uL (4.2-5.4); White Blood Count 11.43 K/uL (4.8-10.8)
[2019-10-04 16:59] LABS: Platelet Count 86 K/uL (130-400)
[2019-10-04 17:04] LABS: INR 1.2 (0.9-1.1); Partial Thromboplastin Ratio 0.8; Prothrombin Time 11.9 Seconds (9.0-12.0)
--- NOTE | 2019-10-04 17:08 | XRay Report ---
XR chest 1V portable HISTORY: 64 years-old Female SEPSIS acute sepsis COMPARISON: Chest radiograph 08/25/2019 TECHNIQUE: Portable AP view of the chest FINDINGS: Cardiomediastinal and hilar silhouettes are within normal limits. Unchanged right IJ [id number] ca theter. Mild hyperinflation. No pneumothorax, pleural effusion, focal airspace consolidation or overt pulmonary edema. Bones of the chest appear to be grossly intact. IMPRESSION: No acute process. ACT 112: Negative or not required by law. The above report was generated using voice recognition software. It may contain grammatical, syntax o r spelling errors. Electronically signed by: Danny Roa M.D. 10/04/2019 5:07 PM
[2019-10-04 17:11] LABS: Albumin Level 2.7 gm/dl (3.4-5.0); BUN Creatinine Ratio 20.6 (10-20); Calcium 8.2 mg/dl (8.5-10.1); Creatinine Clr Calc Pharmacy 65.6 ml/min; Est GFR (African American) 90.3; Est GFR (Non-African American) 77.9; Magnesium 1.6 mg/dl (1.8-2.4); Potassium 3.5 mmol/L (3.5-5.1)
[2019-10-04 17:14] LABS: Bilirubin,Total 0.7 mg/dl (0.2-1); Globulin 2.8 gm/dl (2.5-4.0); Total Protein 5.5 gm/dl (6.4-8.2)
[2019-10-04 17:19] LABS: Immature Granulocytes # (auto) 0.08 K/uL (0.00-0.02); Immature Granulocytes % (auto) 0.7 %; Lymphocytes # (auto) 1.13 K/uL (1.2-3.4); Lymphocytes % (auto) 9.9 %; Monocytes # (auto) 0.05 K/uL (0.11-0.59); Monocytes % (auto) 0.4 %; Neutrophils # (auto) 10.17 K/uL (1.4-6.5); Toxic Granulation 2+
[2019-10-04 17:28] LABS: Influenza A virus by PCR Neg for Influ A (Neg); Influenza B virus by PCR Neg for Influ B (Neg)
[2019-10-04 18:51] LABS: Appearance Urine Clear (Clear); Bilirubin Urine Negative (Negative); Blood Urine Negative (Negative); Color Urine Yellow; Glucose Urine UA Negative (Negative); Ketones Urine Negative (Negative); Leukocyte Esterase Urine Negative (Negative); Nitrite Urine Negative (Negative); Protein Urine Negative (Negative); Specific Gravity Urine 1.007 (1.000-1.030); Urobilinogen Urine Negative (Negative)
--- NOTE | 2019-10-04 19:37 | History & Physical Report ---
Date of Service October 04, 2019 Assessment & Plan (1) Near syncope: Near syncopal episode likely secondary to orthostasis, hypotension Likely secondary to dehydration in the setting of chemotherapy Pancreatic cancer currently on neoadjuvant chemotherapy Status post biliary stent placement --Blood pressure improving after 1 L of normal saline Patient also clinically improving --We will continue IV NSS with potassium at 125 cc/h Check echocardiogram for murmurs auscultated --Monitor telemetry unit --Patient's witnessed the episode and reports that the patient did not pass out Mild lactic acid elevation --Likely secondary to hypotension --Procalcitonin negative, doubt infection --UA negative --Blood cultures pending --Liver function test improving --No leukocytosis --We will hold off on antibiotics, will observe closely Hypomagnesemia --Likely secondary to poor oral intake Thrombocytopenia --Blood count 87, no signs of bleed --Likely from chemotherapy, monitor Pancreatic cancer, on neoadjuvant chemotherapy, status post biliary stent placement --Follows with Dr. Ortiz Torres locally for pancreatic cancer --Follows with [facility] for neoadjuvant chemotherapy DVT prophylaxis --SCDs for now, hold anticoagulation for thrombocytopenia Disposition --Anticipate discharge to home medically stable Plan of care and case discussed with patient and her in detail and at length All questions were answered They are understanding, agreeable, comfortable with the plan of care History of Present Illness Patient is a 64-year-old female with a history of pancreatic cancer diagnosed in July 2019, presenting with syncope/near syncopal episode. Patient is a 64-year-old female with history of pancreatic cancer diagnosed in July 2019, currently undergoing neoadjuvant chemotherapy at [facility]. She is on FOLFIRINOX regimen with Neulasta. Her last chemotherapy was last Sunday, through Sunday via a pump on her port. This afternoon she went to [facility] for her Neulasta shot to be administered by her relative who is a nurse. While walking towards the elevator, patient started to feel lightheaded. While at the elevator, the patient continued to feel lightheaded and dizzy. Patient's was able to noticed that she was going to fall, hence he called her on time and laid her on the floor. Per patient's the patient was awake all throughout this episode. However patient does not recall falling and does remember waking up with people around her helping. A maia jewell was called and the undersigned was actually present during this episode. She was then led to the wheelchair and was brought to the emergency room. She denies having any palpitations, chest pain, shortness of breath. She admits to having been told by Dr. Torres to drink more as she appeared dehydrated during her last visit with him. She drinks about 8 cups of fluids a day. She ports feeling well the past week, no fevers or chills, no sore throat, no headache, no dizziness, no chest pain, no shortness of breath, no cough no abdominal pain no vomiting no diarrhea No urinary symptoms. She reports some feeling weak after chemotherapy session is not unusual for her. At the ER the patient was receiving blood pressure of 91/56. She was given 1 L of normal saline bolus. Blood work showed lactic acid of 2.8. Blood cultures and urinalysis were obtained. Hospitalist consulted for admission. On exam, the patient was seen resting in bed, awake and alert and oriented x3. She looks clinically improved, compared to when I saw her at the elevator earlier this afternoon. She says her lightheadedness and dizziness have resolved. And denies any active symptoms except for just feeling tired. Primary Care Provider: Ortiz Torres MD Allergies Allergy/AdvReac Type Severity Reaction Status Date / Time No Known Allergies Allergy Unverified 10/04/19 17:02 Home Medications Home Medications Medication Instructions Recorded Confirmed Type ondansetron HCl [Zofran] 4 mg PO Q6H PRN #20 tab 07/05/19 10/04/19 Rx docusate sodium [Colace] 100 mg PO BID 08/25/19 10/04/19 History oxycodone [OxyContin] 20 mg PO Q12H PRN 08/25/19 10/04/19 History senna 8.6 mg PO HS PRN 08/25/19 10/04/19 History loratadine [Claritin] 10 mg PO DAILY 10/04/19 10/04/19 History omeprazole magnesium [Prilosec OTC] 20 mg PO DAILY 10/04/19 10/04/19 History pegfilgrastim [Neulasta] 0 mg SUBCUT UD 10/04/19 10/04/19 History Past Med/Surg History Medical History (Updated 10/04/19 @ 19:33 by Harpal Yi MD) Jaundice (Acute) Pancreatic cancer Pancreatic lesion (Acute) Surgical History No pertinent past surgical history Social History Preferred Language: Vietnamese Communication Ability: Effective Powertrain Design Engineer Required: No Beliefs That Will Affect Care: None marital status: Current Living Situation: Spouse Feels Safe at Home: Yes Smoking Status: Never smoker Hx Alcohol Use: No Hx Substance Use: No Review of Systems Review of Systems: All systems reviewed & are unremarkable except as noted in HPI & below Physical Exam Physical Exam: General- oriented x 3, not in distress, speaks in sentences with no effort or accessory muscle use Head- atraumatic Eyes- PERRL, EOMI, anicteric ENT-dry oral mucosa, oropharynx clear Neck- supple, no JVD, no adenopathy, no thyromegaly; carotids +2/2, no bruits appreciated Lungs- clear to auscultation bilaterally, no rales/wheezes Heart- normal rate, regular rhythm; grade 2 murmur holosystolic, no gallop, no rub appreciated Port in place on the right side of the chest wall, no signs of infection or inflammation Abdomen- normal bowel sounds, nondistended, soft, nontender, no masses or hepatosplenomegaly Extremities- no pretibial edema, no calf tenderness; peripheral pulses intact Neuro- alert, oriented x 3; CN 2-12 grossly intact; motor 5/5 bilaterally;sensation 100% on all extremities; no other gross focal neurologic deficits Skin- warm & dry Results & Data Vital Signs (Past 12 Hours) Vital Signs Temp Pulse Pulse Resp BP BP Pulse Ox 10/04/19 19:08 74 17 115/46 L 100 10/04/19 18:30 78 18 104/59 L 98 10/04/19 15:59 36.3 C L 82 18 91/56 L 99 Laboratory Results Laboratory Results - last 24 hr 10/04/19 10/04/19 10/04/19 16:35 16:35 16:35 WBC 11.43 H RBC 3.36 L Hgb 10.7 L Hct 31.8 L MCV 94.6 MCH 31.8 MCHC 33.6 RDW Std Deviation 53.2 H RDW Coeff of Rajesh 15.6 H Plt Count 86 L MPV 11.0 H Immature Gran % (Auto) 0.7 Neut % (Auto) 89.0 Lymph % (Auto) 9.9 [place] % (Auto) 0.4 Eos % (Auto) 0.0 Baso % (Auto) 0.0 Immature Gran # (Auto) 0.08 H Neut # (Auto) 10.17 H Lymph # (Auto) 1.13 L [place] # (Auto) 0.05 L Eos # (Auto) 0.00 Baso # (Auto) 0.00 Toxic Granulation 2+ PT 11.9 INR 1.2 H APTT 21.0 PTT Ratio 0.8 Sodium 133 L Potassium 3.5 Chloride 99 Carbon Dioxide 26 Anion Gap 8.0 BUN 17 Creatinine 0.80 Est Cr Clr Drug Dosing 65.6 Est GFR ( Amer) 90.3 Est GFR (Non-Af Amer) 77.9 BUN/Creatinine Ratio 20.6 H Glucose 132 H Lactate Calcium 8.2 L Magnesium 1.6 L Total Bilirubin 0.7 AST 78 H ALT 94 H Alkaline Phosphatase 278 H Total Protein 5.5 L Albumin 2.7 L Globulin 2.8 Albumin/Globulin Ratio 1.0 Procalcitonin Urine Color Urine Appearance Urine pH Ur Specific [place] Urine Protein Urine Glucose (UA) Urine Ketones Urine Blood Urine Nitrite Urine Bilirubin Urine Urobilinogen Ur Leukocyte Esterase Influenza Type A (PCR) Influenza Type B (PCR) 10/04/19 10/04/19 10/04/19 16:35 16:35 16:51 WBC RBC Hgb Hct MCV MCH MCHC RDW Std Deviation RDW Coeff of Rajesh Plt Count MPV Immature Gran % (Auto) Neut % (Auto) Lymph % (Auto) [place] % (Auto) Eos % (Auto) Baso % (Auto) Immature Gran # (Auto) Neut # (Auto) Lymph # (Auto) [place] # (Auto) Eos # (Auto) Baso # (Auto) Toxic Granulation PT INR APTT PTT Ratio Sodium Potassium Chloride Carbon Dioxide Anion Gap BUN Creatinine Est Cr Clr Drug Dosing Est GFR ( Amer) Est GFR (Non-Af Amer) BUN/Creatinine Ratio Glucose Lactate 2.8 H* Calcium Magnesium Total Bilirubin AST ALT Alkaline Phosphatase Total Protein Albumin Globulin Albumin/Globulin Ratio Procalcitonin 0.18 Urine Color Urine Appearance Urine pH Ur Specific [place] Urine Protein Urine Glucose (UA) Urine Ketones Urine Blood Urine Nitrite Urine Bilirubin Urine Urobilinogen Ur Leukocyte Esterase Influenza Type A (PCR) Neg for Influ A Influenza Type B (PCR) Neg for Influ B 10/04/19 10/04/19 18:40 19:21 WBC RBC Hgb Hct MCV MCH MCHC RDW Std Deviation RDW Coeff of Rajesh Plt Count MPV Immature Gran % (Auto) Neut % (Auto) Lymph % (Auto) [place] % (Auto) Eos % (Auto) Baso % (Auto) Immature Gran # (Auto) Neut # (Auto) Lymph # (Auto) [place] # (Auto) Eos # (Auto) Baso # (Auto) Toxic Granulation PT INR APTT PTT Ratio Sodium Potassium Chloride Carbon Dioxide Anion Gap BUN Creatinine Est Cr Clr Drug Dosing Est GFR ( Amer) Est GFR (Non-Af Amer) BUN/Creatinine Ratio Glucose Lactate Pending Calcium Magnesium Total Bilirubin AST ALT Alkaline Phosphatase Total Protein Albumin Globulin Albumin/Globulin Ratio Procalcitonin Urine Color Yellow Urine Appearance Clear Urine pH 7.0 Ur Specific [place] 1.007 Urine Protein Negative Urine Glucose (UA) Negative Urine Ketones Negative Urine Blood Negative Urine Nitrite Negative Urine Bilirubin Negative Urine Urobilinogen Negative Ur Leukocyte Esterase Negative Influenza Type A (PCR) Influenza Type B (PCR) Code Status & VTE Plan Code Status Full code VTE Prophylaxis Plan VTE Prophylaxis will be ordered: Yes
[2019-10-04] MEDS ORDERED: ACETAMINOPHEN 325 MG TAB PO PRN (20:59)
[2019-10-04] MEDS ORDERED: SENNA 8.6 MG TAB PO PRN (20:59)
[2019-10-04] MEDS ORDERED: OXYCODONE HCL IR 5 MG TAB (IMMEDIATE RELEASE) PO PRN (20:59)
[2019-10-04] MEDS: DOCUSATE SODIUM 100 MG CAP PO SCH (21:44)
[2019-10-04] MEDS: MAGNESIUM SULFATE / D5W 1 GM/100 ML BAG IV SCH ×2 (21:44→22:38)
[2019-10-04] MEDS: NSS + 20MEQ KCL 20 MEQ/1,000 ML BAG IV SCH (21:44)
[2019-10-04] MEDS: OXYCODONE HCL 20 MG TABCR (OXYCONTIN) PO SCH (21:45)
[2019-10-04] MEDS: ONDANSETRON INJ 2 MG/ML 2 ML VIAL IV PRN (22:20)
[2019-10-05 05:40] LABS: Hematocrit (blood only) 27.6 % (37-47); Hemoglobin 9.3 g/dL (12.0-16.0); Mean Corpuscular Hemoglobin 31.7 pg (25-34); Mean Corpuscular Hgb Conc 33.7 g/dL (32-36); Mean Corpuscular Volume 94.2 fL (80-100); RDW Coefficient of Variation 15.8 % (11.5-14.5); RDW Standard Deviation 52.4 fL (36.4-46.3); Red Blood Count 2.93 M/uL (4.2-5.4); White Blood Count 19.07 K/uL (4.8-10.8)
[2019-10-05 05:50] LABS: Mean Platelet Volume 11.2 fL (7.4-10.4); Platelet Count 71 K/uL (130-400)
[2019-10-05 06:04] LABS: BUN Creatinine Ratio 25.2 (10-20); Calcium 7.4 mg/dl (8.5-10.1); Creatinine Clr Calc Pharmacy 93.3 ml/min; Est GFR (African American) 113.5; Magnesium 2.2 mg/dl (1.8-2.4); Potassium 3.9 mmol/L (3.5-5.1)
[2019-10-05 06:16] LABS: Basophils # (auto) 0.01 K/uL (0-0.2); Basophils % (auto) 0.1 %; Eosinophils # (auto) 0.01 K/uL (0-0.5); Eosinophils % (auto) 0.1 %; Immature Granulocytes # (auto) 0.43 K/uL (0.00-0.02); Immature Granulocytes % (auto) 2.3 %; Lymphocytes # (auto) 1.16 K/uL (1.2-3.4); Lymphocytes % (auto) 6.1 %; Monocytes % (auto) 0.5 %; Neutrophils # (auto) 17.36 K/uL (1.4-6.5); Neutrophils % (auto) 90.9 %; RBC Morphology Unremarkable
[2019-10-05] MEDS: NSS + 20MEQ KCL 20 MEQ/1,000 ML BAG IV SCH ×3 (07:53→23:57)
[2019-10-05] MEDS: LORATADINE 10 MG TAB PO SCH (07:53)
[2019-10-05] MEDS: DOCUSATE SODIUM 100 MG CAP PO SCH ×2 (07:53→20:27)
[2019-10-05] MEDS: PANTOprazole 40 MG TAB PO SCH (07:54)
[2019-10-05] MEDS: OXYCODONE HCL 20 MG TABCR (OXYCONTIN) PO SCH ×2 (07:54→20:27)
[2019-10-05] MEDS: ONDANSETRON INJ 2 MG/ML 2 ML VIAL IV PRN (08:13)
--- NOTE | 2019-10-05 12:14 | Hospitalist Progress Note ---
Date of Service October 05, 2019 Assessment & Plan (1) Near syncope: Near syncopal episode likely secondary to orthostasis, hypotension Likely secondary to dehydration in the setting of chemotherapy Pancreatic cancer currently on neoadjuvant chemotherapy Status post biliary stent placement --Blood pressure improving continue IV NSS with potassium at 125 cc/h -- Echo: pending --Monitor telemetry unit --Patient's witnessed the episode and reports that the patient did not pass out Mild lactic acid elevation --Likely secondary to hypotension --Procalcitonin negative, doubt infection --UA negative --Blood cultures pending --Liver function test improving - resolved with IV fluids Hypomagnesemia --Likely secondary to poor oral intake -- resolved Thrombocytopenia --Blood count 87--> 71k, no signs of bleed --Likely from chemotherapy, monitor Pancreatic cancer, on neoadjuvant chemotherapy, status post biliary stent placement --Follows with Dr. Ortiz Torres locally for pancreatic cancer --Follows with [facility] for neoadjuvant chemotherapy DVT prophylaxis --SCDs for now, hold anticoagulation for thrombocytopenia Disposition --Anticipate discharge to home medically stable Plan of care and case discussed with patient and her faimly in detail and at length All questions were answered They are understanding, agreeable, comfortable with the plan of care Admission and Anticipated Discharge Date Admission Date: October 04, 2019 Subjective ff up for near syncope seen resting in bed, more alert, brighter oriented x 3 states she feels about 60% better today has not stood up and walked yet denies headache, dizziness, chest pain, cough, abdominal pain, problems with BM or urination no palpitations no fever/chills appetite improving, denies other symptoms Review of Systems Review of Systems: All systems reviewed & are unremarkable except as noted in HPI & below Physical Exam Physical Exam: General- oriented x 3, not in distress, speaks in sentences with no effort or accessory muscle use Eyes- anicteric Neck- no JVD Lungs- clear breath sounds bilaterally, no rales/wheezes Heart- normal rate, regular rhythm; no murmurs port in place: no signs of infection Abdomen- normal bowel sounds, nondistended, soft, nontender Extremities- no pretibial edema, no calf tenderness Neuro- alert, oriented x 3; no gross focal neurologic deficits Skin- warm & dry Results & Data ([facility]) Vital Signs (Past 12 Hours) Vital Signs Temp Pulse Pulse Resp BP Pulse Ox 03/01/20 12:09 36.7 C 79 18 100/63 97 10/05/19 07:30 80 10/05/19 07:16 36.8 C 80 18 95/60 L 97 10/05/19 04:00 36.7 C 79 20 98/62 L 95
--- NOTE | 2019-10-05 12:35 | Electrocardiogram Report ---
Test Reason : Blood Pressure : / mmHG Vent. Rate : 070 BPM Atrial Rate : 070 BPM P-R Int : 108 ms QRS Dur : 100 ms QT Int : 412 ms P-R-T Axes : 058 065 042 degrees QTc Int : 444 ms Sinus rhythm with short LA RSR' or QR pattern in V1 suggests right ventricular conduction delay Borderline ECG When compared with ECG of 25-AUG-2019 18:37, Nonspecific T wave abnormality no longer present Confirmed by Jose L Mcdaniel ([id number]) on 10/05/2019 12:35:06 PM Referred By: REFERRED SELF Confirmed By:Jose L Mcdaniel
--- NOTE | 2019-10-05 18:09 | Emergency Department Note ---
Entered by Augusta Zeng acting as a scribe for Shawn Duarte MD History of Present Illness General Chief complaint: Syncope Stated complaint: syncope Time Seen by Provider: 10/04/19 16:03 Source: patient History of Present Illness Onset (ago): hour(s) (prior to arrival) Location: head (syncope) Pain Consistency: + other (episode) Maximum Pain Intensity: 0 Exacerbated By: + other (current chemotherapy treatments) Associated symptoms: + denies other symptoms (abdominal pain) and + other (dizziness, shakiness) The patient is a 64 year old F who presents to the Emergency Room with complaints of an episode of syncope that occurred prior to arrival. The patient states that she is currently being treated at [facility] for pancreatic cancer. She adds that she has had 4 chemo treatments so far in the past month. She notes that she was admitted to the hospital, 1 month ago, for neutropenia. She states that she was in the ED, today, because she receives her neupogen injection after she finishes her chemo pump. She adds that she came off of her chemo pump, yesterday. She notes that she was up at the elevator area in the hospital when she started to experience dizziness and shakiness. She adds that she ended up passing out. She denies that she is currently experiencing abdominal pain. She states that she had food to eat today. Home Medications Home Medications Medication Instructions Recorded Confirmed Type ondansetron HCl [Zofran] 4 mg PO Q6H PRN #20 tab 07/05/19 10/04/19 Rx docusate sodium [Colace] 100 mg PO BID 08/25/19 10/04/19 History oxycodone [OxyContin] 20 mg PO Q12H PRN 08/25/19 10/04/19 History senna 8.6 mg PO HS PRN 08/25/19 10/04/19 History loratadine [Claritin] 10 mg PO DAILY 10/04/19 10/04/19 History omeprazole magnesium [Prilosec OTC] 20 mg PO DAILY 10/04/19 10/04/19 History pegfilgrastim [Neulasta] 0 mg SUBCUT UD 10/04/19 10/04/19 History Allergies Allergy/AdvReac Type Severity Reaction Status Date / Time No Known Allergies Allergy Unverified 10/04/19 17:02 Past Med/Surg History Medical History (Updated 10/05/19 @ 18:07 by Shawn Duarte MD) Jaundice (Acute) Pancreatic cancer Pancreatic lesion (Acute) Surgical History No pertinent past surgical history Social History Preferred Language: Faroese Communication Ability: Effective [employer] Delivery Required: No Beliefs That Will Affect Care: None marital status: Current Living Situation: Spouse Feels Safe at Home: Yes Safety Concerns: Feels Safe At This Time Smoking Status: Never smoker Hx Alcohol Use: No Hx Substance Use: No Review of Systems See HPI for pertinent positives & negatives. and A total of 10 systems reviewed and were otherwise negative Physical Exam Vital Signs Vital Signs - 24 hr 10/04/19 18:30 10/04/19 19:08 Pulse Rate [Apical] 78 74 Respiratory Rate 18 17 Respiratory Effort / Characteristics Non-Labored Spontaneous Non-Labored Spontaneous Respiratory Depth Normal Normal Respiratory Pattern Regular Regular Blood Pressure [Right Arm] 104/59 L 115/46 L Blood Pressure Mean [Right Arm] 74 69 Pulse Oximetry 98 100 Oxygen Delivery Method Room Air Room Air GENERAL: Awake, alert, well-appearing, in no acute distress HENT: Normocephalic, atraumatic. Oropharynx unremarkable. EYES: Normal conjunctiva. Sclera non-icteric. NECK: Supple. No nuchal rigidity. FROM. No JVD. RESPIRATORY: Clear to auscultation. CARDIAC: Regular rate, normal rhythm. Extremities warm and well perfused. Pulses equal. ABDOMEN: Soft, non-distended. No tenderness to palpation. No rebound or guarding. No masses. RECTAL: Deferred. MUSCULOSKELETAL: Chest examination reveals no tenderness. Port in place in left chest wall. The back is symmetrical on inspection without obvious abnormality. There is no CVA tenderness to palpation. No joint edema. LOWER EXTREMITIES: Calves are equal size bilaterally and non-tender. No edema. No discoloration. NEURO: Normal sensorium. No sensory or motor deficits noted. SKIN: No rash or jaundice noted. Course Course 160: The patient was evaluated in room C7. A complete history and physical exam was performed. 1817: I reviewed the patient's case with Dr. Harpal Yi, [facility] Hospitalist. He will evaluate the patient for further management. Administered Medications Docusate Sodium (Colace) 100 mg PO BID COLT Stop: 11/03/19 20:59 Last Admin: 10/05/19 07:53 Dose: 100 mg Documented by: [id number] Admin: 10/04/19 21:44 Dose: 100 mg Documented by: [id number] Potassium Chloride/Sodium Chloride (Normal Saline W/20 Meq Kcl) 20 meq in 1,000 mls @ 125 mls/hr IV .Q8H COLT Stop: 11/03/19 20:58 Last Admin: 10/05/19 15:55 Dose: 125 mls/hr Documented by: [id number] Infusion: 10/05/19 15:53 Dose: 125 mls/hr Documented by: [id number] Admin: 10/05/19 07:53 Dose: 125 mls/hr Documented by: [id number] Infusion: 10/05/19 07:07 Dose: 125 mls/hr Documented by: [id number] Infusion: 10/05/19 00:01 Dose: 125 mls/hr Documented by: [id number] Infusion: 10/04/19 22:38 Dose: 0 mls/hr Documented by: [id number] Admin: 10/04/19 21:44 Dose: 125 mls/hr Documented by: [id number] Loratadine (Claritin) 10 mg PO DAILY COLT Stop: 11/04/19 08:59 Last Admin: 10/05/19 07:53 Dose: 10 mg Documented by: [id number] Ondansetron HCl (Zofran) 4 mg IV Q6H PRN PRN Reason: Nausea Stop: 11/03/19 20:58 Last Admin: 10/05/19 08:13 Dose: 4 mg Documented by: [id number] Admin: 10/04/19 22:20 Dose: 4 mg Documented by: [id number] Oxycodone HCl (Oxycontin) 20 mg PO Q12H COLT Stop: 10/18/19 20:59 Last Admin: 10/05/19 07:54 Dose: 20 mg Documented by: [id number] Admin: 10/04/19 21:45 Dose: 20 mg Documented by: [id number] Pantoprazole Sodium (Protonix) 40 mg PO DAILY COLT Stop: 11/04/19 08:59 Last Admin: 10/05/19 07:54 Dose: 40 mg Documented by: [id number] Discontinued Medications Sodium Chloride (Nss 1000ml) 1,000 mls @ 999 mls/hr IV .Q1H1M ONE Stop: 10/04/19 17:10 Last Infusion: 10/04/19 18:29 Dose: 0 mls/hr Documented by: [id number] Admin: 10/04/19 17:36 Dose: 999 mls/hr Documented by: [id number] Sodium Chloride (Nss 1000ml) 1,000 mls @ 999 mls/hr IV .Q1H1M ONE Stop: 10/04/19 17:11 Last Infusion: 10/04/19 19:48 Dose: 0 mls/hr Documented by: [id number] Admin: 10/04/19 18:41 Dose: 999 mls/hr Documented by: [id number] Magnesium Sulfate/Dextrose (Magnesium Sulfate / D5w) 1 gm in 100 mls @ 100 mls/hr IV Q1H COLT Stop: 10/04/19 22:58 Last Infusion: 10/05/19 00:01 Dose: 0 mls/hr Documented by: [id number] Admin: 10/04/19 22:38 Dose: 100 mls/hr Documented by: [id number] Infusion: 10/04/19 22:37 Dose: 0 mls/hr Documented by: [id number] Admin: 10/04/19 21:44 Dose: 100 mls/hr Documented by: [id number] Medical Decision Making Differential Diagnosis Differential diagnosis: Etiologies such as vasovagal event, infection, hypoglycemia, electrolyte abnormalities, cardiac sources, intracerebral event, toxicologic, neurologic, as well as others were entertained. Medical Records Attestation: I reviewed the patient's medical records. Home Medications Current Medication List: was personally reviewed by [email or web address] Laboratory Data Attestation: I reviewed the patient's lab results. Result diagrams: 10/05/19 04:50 10/05/19 04:50 Lab Results 10/04/19 10/04/19 10/04/19 Range/Units 16:35 16:35 16:35 WBC 11.43 H (4.8-10.8) K/uL RBC 3.36 L (4.2-5.4) M/uL Hgb 10.7 L (12.0-16.0) g/dL Hct 31.8 L (37-47) % MCV 94.6 (80-100) fL MCH 31.8 (25-34) pg MCHC 33.6 (32-36) g/dL RDW Std Deviation 53.2 H (36.4-46.3) fL RDW Coeff of Rajesh 15.6 H (11.5-14.5) % Plt Count 86 L (130-400) K/uL MPV 11.0 H (7.4-10.4) fL Immature Gran % (Auto) 0.7 % Neut % (Auto) 89.0 % Lymph % (Auto) 9.9 % [place] % (Auto) 0.4 % Eos % (Auto) 0.0 % Baso % (Auto) 0.0 % Immature Gran # (Auto) 0.08 H (0.00-0.02) K/uL Neut # (Auto) 10.17 H (1.4-6.5) K/uL Lymph # (Auto) 1.13 L (1.2-3.4) K/uL [place] # (Auto) 0.05 L (0.11-0.59) K/uL Eos # (Auto) 0.00 (0-0.5) K/uL Baso # (Auto) 0.00 (0-0.2) K/uL Toxic Granulation 2+ PT 11.9 (9.0-12.0) Seconds INR 1.2 H (0.9-1.1) APTT 21.0 (21.0-31.0) Seconds PTT Ratio 0.8 Sodium 133 L (136-145) mmol/L Potassium 3.5 (3.5-5.1) mmol/L Chloride 99 (98-107) mmol/L Carbon Dioxide 26 (21-32) mmol/L Anion Gap 8.0 (3-11) BUN 17 (7-18) mg/dl Creatinine 0.80 (0.6-1.2) mg/dl Est Cr Clr Drug Dosing 65.6 ml/min Est GFR ( Amer) 90.3 Est GFR (Non-Af Amer) 77.9 BUN/Creatinine Ratio 20.6 H (10-20) Glucose 132 H (70-99) mg/dl Lactate (0.4-2.0) mmol/L Calcium 8.2 L (8.5-10.1) mg/dl Magnesium 1.6 L (1.8-2.4) mg/dl Total Bilirubin 0.7 (0.2-1) mg/dl AST 78 H (15-37) U/L ALT 94 H (12-78) U/L Alkaline Phosphatase 278 H (45-117) U/L Total Protein 5.5 L (6.4-8.2) gm/dl Albumin 2.7 L (3.4-5.0) gm/dl Globulin 2.8 (2.5-4.0) gm/dl Albumin/Globulin Ratio 1.0 (0.9-2) Procalcitonin (0-0.5) ng/ml Urine Color Urine Appearance (Clear) Urine pH (4.5-7.5) Ur Specific [place] (1.000-1.030) Urine Protein (Negative) Urine Glucose (UA) (Negative) Urine Ketones (Negative) Urine Blood (Negative) Urine Nitrite (Negative) Urine Bilirubin (Negative) Urine Urobilinogen (Negative) Ur Leukocyte Esterase (Negative) Influenza Type A (PCR) (Neg) Influenza Type B (PCR) (Neg) 10/04/19 10/04/19 10/04/19 Range/Units 16:35 16:35 16:51 WBC (4.8-10.8) K/uL RBC (4.2-5.4) M/uL Hgb (12.0-16.0) g/dL Hct (37-47) % MCV (80-100) fL MCH (25-34) pg MCHC (32-36) g/dL RDW Std Deviation (36.4-46.3) fL RDW Coeff of Rajesh (11.5-14.5) % Plt Count (130-400) K/uL MPV (7.4-10.4) fL Immature Gran % (Auto) % Neut % (Auto) % Lymph % (Auto) % [place] % (Auto) % Eos % (Auto) % Baso % (Auto) % Immature Gran # (Auto) (0.00-0.02) K/uL Neut # (Auto) (1.4-6.5) K/uL Lymph # (Auto) (1.2-3.4) K/uL [place] # (Auto) (0.11-0.59) K/uL Eos # (Auto) (0-0.5) K/uL Baso # (Auto) (0-0.2) K/uL Toxic Granulation PT (9.0-12.0) Seconds INR (0.9-1.1) APTT (21.0-31.0) Seconds PTT Ratio Sodium (136-145) mmol/L Potassium (3.5-5.1) mmol/L Chloride (98-107) mmol/L Carbon Dioxide (21-32) mmol/L Anion Gap (3-11) BUN (7-18) mg/dl Creatinine (0.6-1.2) mg/dl Est Cr Clr Drug Dosing ml/min Est GFR ( Amer) Est GFR (Non-Af Amer) BUN/Creatinine Ratio (10-20) Glucose (70-99) mg/dl Lactate 2.8 H* (0.4-2.0) mmol/L Calcium (8.5-10.1) mg/dl Magnesium (1.8-2.4) mg/dl Total Bilirubin (0.2-1) mg/dl AST (15-37) U/L ALT (12-78) U/L Alkaline Phosphatase (45-117) U/L Total Protein (6.4-8.2) gm/dl Albumin (3.4-5.0) gm/dl Globulin (2.5-4.0) gm/dl Albumin/Globulin Ratio (0.9-2) Procalcitonin 0.18 (0-0.5) ng/ml Urine Color Urine Appearance (Clear) Urine pH (4.5-7.5) Ur Specific [place] (1.000-1.030) Urine Protein (Negative) Urine Glucose (UA) (Negative) Urine Ketones (Negative) Urine Blood (Negative) Urine Nitrite (Negative) Urine Bilirubin (Negative) Urine Urobilinogen (Negative) Ur Leukocyte Esterase (Negative) Influenza Type A (PCR) Neg for Influ A (Neg) Influenza Type B (PCR) Neg for Influ B (Neg) 10/04/19 10/04/19 Range/Units 18:40 19:21 WBC (4.8-10.8) K/uL RBC (4.2-5.4) M/uL Hgb (12.0-16.0) g/dL Hct (37-47) % MCV (80-100) fL MCH (25-34) pg MCHC (32-36) g/dL RDW Std Deviation (36.4-46.3) fL RDW Coeff of Rajesh (11.5-14.5) % Plt Count (130-400) K/uL MPV (7.4-10.4) fL Immature Gran % (Auto) % Neut % (Auto) % Lymph % (Auto) % [place] % (Auto) % Eos % (Auto) % Baso % (Auto) % Immature Gran # (Auto) (0.00-0.02) K/uL Neut # (Auto) (1.4-6.5) K/uL Lymph # (Auto) (1.2-3.4) K/uL [place] # (Auto) (0.11-0.59) K/uL Eos # (Auto) (0-0.5) K/uL Baso # (Auto) (0-0.2) K/uL Toxic Granulation PT (9.0-12.0) Seconds INR (0.9-1.1) APTT (21.0-31.0) Seconds PTT Ratio Sodium (136-145) mmol/L Potassium (3.5-5.1) mmol/L Chloride (98-107) mmol/L Carbon Dioxide (21-32) mmol/L Anion Gap (3-11) BUN (7-18) mg/dl Creatinine (0.6-1.2) mg/dl Est Cr Clr Drug Dosing ml/min Est GFR ( Amer) Est GFR (Non-Af Amer) BUN/Creatinine Ratio (10-20) Glucose (70-99) mg/dl Lactate 2.3 H* (0.4-2.0) mmol/L Calcium (8.5-10.1) mg/dl Magnesium (1.8-2.4) mg/dl Total Bilirubin (0.2-1) mg/dl AST (15-37) U/L ALT (12-78) U/L Alkaline Phosphatase (45-117) U/L Total Protein (6.4-8.2) gm/dl Albumin (3.4-5.0) gm/dl Globulin (2.5-4.0) gm/dl Albumin/Globulin Ratio (0.9-2) Procalcitonin (0-0.5) ng/ml Urine Color Yellow Urine Appearance Clear (Clear) Urine pH 7.0 (4.5-7.5) Ur Specific [place] 1.007 (1.000-1.030) Urine Protein Negative (Negative) Urine Glucose (UA) Negative (Negative) Urine Ketones Negative (Negative) Urine Blood Negative (Negative) Urine Nitrite Negative (Negative) Urine Bilirubin Negative (Negative) Urine Urobilinogen Negative (Negative) Ur Leukocyte Esterase Negative (Negative) Influenza Type A (PCR) (Neg) Influenza Type B (PCR) (Neg) Imaging Data Radiologist's Impression: Radiology results as stated below per my review and the radiologist's interpretation: XR chest 1V portable HISTORY: 64 years-old Female SEPSIS acute sepsis COMPARISON: Chest radiograph 08/25/2019 TECHNIQUE: Portable AP view of the chest FINDINGS: Cardiomediastinal and hilar silhouettes are within normal limits. Unchanged right IJ Rjwhld-h-Sdow catheter. Mild hyperinflation. No pneumothorax, pleural effusion, focal airspace consolidation or overt pulmonary edema. Bones of the chest appear to be grossly intact. IMPRESSION: No acute process. ACT 112: Negative or not required by law. The above report was generated using voice recognition software. It may contain grammatical, syntax or spelling errors. Electronically signed by: Danny Roa M.D. 10/04/2019 5:07 PM ECG Data Attestation: I personally reviewed and interpreted this ECG as follows: Indication: + syncope Rate (beats per minute): 70 Rhythm: + sinus rhythm ECG Intervals/blocks: + Short NH ECG Findings: + Other (RSR, QTc 444) Blood Pressure Blood Pressure Findings: Low blood pressure Blood Pressure Disposition: further management by hospitalist MDM Narrative This is a 64-year-old female who presents emergency department complaining of syncopal episode. Patient is currently getting chemotherapy for pancreatic canc er. Her white blood cell count is elevated. She was given 2 L of fluid here in the emergency department. She was also found to have an elevation in her lactic acid. Due to the patient's multiple comorbidities I did discuss the case with the hospitalist service who did agree to admit the patient. Patient and family were in agreement with the treatment plan. Impression & Plan Near syncope, Anemia Discharge Plan Visit Data *Final* Discharge Date/Time: 10/04/19 19:56 Chief Complaint: Syncope Stated Complaint: syncope ED Provider: Shawn Duarte Discharge Problem: Near syncope, Anemia Patient Disposition: Admitted As Inpatient Discharge Instructions Interventions: ED Discharge Assessment Last Done: 10/04/19 19:56 The scribe's documentation has been prepared under my direction and personally reviewed by me in its entirety. I confirm that the note above accurately reflects all work, treatment, procedures, and medical decision making performed by me.
[2019-10-05] MEDS ORDERED: PANCREAZE (LIPASE 10,500U) CAP PO PRN (18:18)
[2019-10-06 05:59] LABS: Hematocrit (blood only) 26.9 % (37-47); Hemoglobin 8.9 g/dL (12.0-16.0); Mean Corpuscular Hemoglobin 31.6 pg (25-34); Mean Corpuscular Hgb Conc 33.1 g/dL (32-36); Mean Corpuscular Volume 95.4 fL (80-100); RDW Coefficient of Variation 15.6 % (11.5-14.5); RDW Standard Deviation 53.9 fL (36.4-46.3); Red Blood Count 2.82 M/uL (4.2-5.4); White Blood Count 9.98 K/uL (4.8-10.8)
[2019-10-06 06:02] LABS: Mean Platelet Volume 10.3 fL (7.4-10.4); Platelet Count 57 K/uL (130-400)
[2019-10-06 06:26] LABS: Dohle Bodies 1+; Eosinophils # (auto) 0.01 K/uL (0-0.5); Eosinophils % (auto) 0.1 %; Immature Granulocytes # (auto) 0.07 K/uL (0.00-0.02); Immature Granulocytes % (auto) 0.7 %; Lymphocytes # (auto) 1.04 K/uL (1.2-3.4); Lymphocytes % (auto) 10.4 %; Monocytes # (auto) 0.04 K/uL (0.11-0.59); Monocytes % (auto) 0.4 %; Neutrophils # (auto) 8.82 K/uL (1.4-6.5); Neutrophils % (auto) 88.4 %; Toxic Vacuolation Occasional
[2019-10-06 06:36] LABS: BUN Creatinine Ratio 19.6 (10-20); Calcium 7.5 mg/dl (8.5-10.1); Creatinine Clr Calc Pharmacy 109.3 ml/min; Est GFR (African American) 119.3; Potassium 4.5 mmol/L (3.5-5.1)
[2019-10-06] MEDS: NSS + 20MEQ KCL 20 MEQ/1,000 ML BAG IV SCH ×2 (07:53→13:54)
[2019-10-06] MEDS: OXYCODONE HCL 20 MG TABCR (OXYCONTIN) PO SCH (08:44)
[2019-10-06] MEDS: PANCREAZE (LIPASE 10,500U) CAP PO SCH ×2 (08:44→12:24)
[2019-10-06] MEDS: DOCUSATE SODIUM 100 MG CAP PO SCH (08:44)
[2019-10-06] MEDS: PANTOprazole 40 MG TAB PO SCH (10:30)
[2019-10-06] MEDS: LORATADINE 10 MG TAB PO SCH (10:30)
[2019-10-06] MEDS: ONDANSETRON INJ 2 MG/ML 2 ML VIAL IV PRN (12:21)
[2019-10-06] MEDS ORDERED: HEPARIN 100 UNIT/ML 5ML FLUSH ONE (13:45)
--- NOTE | 2019-10-06 13:56 | Hospitalist Progress Note ---
Date of Service delayed entry date of service note below October 06, 2019 Assessment & Plan (1) Near syncope: Near syncopal episode likely secondary to orthostasis, hypotension Likely secondary to dehydration in the setting of chemotherapy Pancreatic cancer currently on neoadjuvant chemotherapy Status post biliary stent placement -- given IV NSS Blood pressure improved dizziness resolved -- Echo: normal EF, no valvular abnormalities no abnormal rhythm in Telemetry -- blood cultures: negative UA: no signs of UTI -- advised to drink plenty of fluids try to decrease Oxycontin by 50% Mild lactic acid elevation --Likely secondary to hypotension --Procalcitonin negative, doubt infection --UA negative --Blood cultures negative --Liver function test improving - resolved with IV fluids Hypomagnesemia --Likely secondary to poor oral intake -- resolved Thrombocytopenia --Blood count 87--> 57k, no signs of bleed --Likely from chemotherapy, monitor -- repeat this week , c/o Dr. Torres ff up to be arranged with Dr. Torres this week per Patient's request Pancreatic cancer, on neoadjuvant chemotherapy, status post biliary stent placement --Follows with Dr. Ortiz Torres locally for pancreatic cancer --Follows with [facility] for neoadjuvant chemotherapy DVT prophylaxis --SCDs for now, hold anticoagulation for thrombocytopenia Disposition -- d/c home ff up with Dr. Torres as noted above Plan of care and case discussed with patient and her in detail and at length All questions were answered They are understanding, agreeable, comfortable with the plan of care Admission and Anticipated Discharge Date Admission Date: October 04, 2019 Subjective ff up for near syncope, dehydration seen resting in bed, comfortable states she feels much better overall had vomiting after a bite of her lunch- chicken, resolved no abdominal pain no chest pain, dyspnea, palpitations no dizziness, ambulated with no problems no fever/chills denies other symptoms states she is ready and would like to be discharged Review of Systems Review of Systems: All systems reviewed & are unremarkable except as noted in HPI & below Physical Exam Physical Exam: General- oriented x 3, not in distress, speaks in sentences with no effort or accessory muscle use Eyes- anicteric Neck- no JVD Lungs- clear breath sounds bilaterally Heart- normal rate, regular rhythm; no murmurs Abdomen- normal bowel sounds, nondistended, soft, no tenderness Extremities- no pretibial edema, no calf tenderness Neuro- alert, oriented x 3; no gross focal neurologic deficits Skin- warm & dry Results & Data ([facility]) Vital Signs (Past 12 Hours) Vital Signs Temp Pulse Resp BP BP Pulse Ox 10/06/19 13:52 36.9 C 82 18 108/71 96 10/06/19 11:42 36.9 C 82 18 108/71 96 10/06/19 07:46 36.8 C 83 20 103/67 96 10/06/19 04:00 36.9 C 70 18 100/66 98 Laboratory Results all noted and reviewed
--- NOTE | 2019-10-08 14:06 | Discharge Summary ---
Date of Service October 08, 2019 Admission HPI Per Admitting Provider Patient is a 64-year-old female with a history of pancreatic cancer diagnosed in July 2019, presenting with syncope/near syncopal episode. Patient is a 64-year-old female with history of pancreatic cancer diagnosed in July 2019, currently undergoing neoadjuvant chemotherapy at [facility]. She is on FOLFIRINOX regimen with Neulasta. Her last chemotherapy was last Sunday, through Sunday via a pump on her port. This afternoon she went to [facility] for her Neulasta shot to be administered by her relative who is a nurse. While walking towards the elevator, patient started to feel lightheaded. While at the elevator, the patient continued to feel lightheaded and dizzy. Patient's was able to noticed that she was going to fall, hence he called her on time and laid her on the floor. Per patient's the patient was awake all throughout this episode. However patient does not recall falling and does remember waking up with people around her helping. A code purple was called and the undersigned was actually present during this episode. She was then led to the wheelchair and was brought to the emergency room. She denies having any palpitations, chest pain, shortness of breath. She admits to having been told by Dr. Torres to drink more as she appeared dehydrated during her last visit with him. She drinks about 8 cups of fluids a day. She ports feeling well the past week, no fevers or chills, no sore throat, no headache, no dizziness, no chest pain, no shortness of breath, no cough no abdominal pain no vomiting no diarrhea No urinary symptoms. She reports some feeling weak after chemotherapy session is not unusual for her. At the ER the patient was receiving blood pressure of 91/56. She was given 1 L of normal saline bolus. Blood work showed lactic acid of 2.8. Blood cultures and urinalysis were obtained. Hospitalist consulted for admission. On exam, the patient was seen resting in bed, awake and alert and oriented x3. She looks clinically improved, compared to when I saw her at the elevator earlier this afternoon. She says her lightheadedness and dizziness have resolved. And denies any active symptoms except for just feeling tired. Primary Care Provider: Ortiz Torres MD Allergies Allergy/AdvReac Type Severity Reaction Status Date / Time No Known Allergies Allergy Unverified 10/04/19 17:02 Home Medications Home Medications Medication Instructions Recorded Confirmed Type ondansetron HCl [Zofran] 4 mg PO Q6H PRN #20 tab 07/05/19 10/04/19 Rx docusate sodium [Colace] 100 mg PO BID 08/25/19 10/04/19 History oxycodone [OxyContin] 20 mg PO Q12H PRN 08/25/19 10/04/19 History senna 8.6 mg PO HS PRN 08/25/19 10/04/19 History loratadine [Claritin] 10 mg PO DAILY 10/04/19 10/04/19 History omeprazole magnesium [Prilosec OTC] 20 mg PO DAILY 10/04/19 10/04/19 History pegfilgrastim [Neulasta] 0 mg SUBCUT UD 10/04/19 10/04/19 History Past Med/Surg History Medical History (Updated 10/04/19 @ 19:33 by Harpal Yi MD) Jaundice (Acute) Pancreatic cancer Pancreatic lesion (Acute) Surgical History No pertinent past surgical history Social History Preferred Language: Kazakh Communication Ability: Effective 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 Beliefs That Will Affect Care: None marital status: Current Living Situation: Spouse Feels Safe at Home: Yes Smoking Status: Never smoker Hx Alcohol Use: No Hx Substance Use: No Review of Systems Review of Systems: All systems reviewed & are unremarkable except as noted in HPI & below Skin- warm & dry Admission Exam Per Admitting Provider Physical Exam Physical Exam: General- oriented x 3, not in distress, speaks in sentences with no effort or accessory muscle use Head- atraumatic Eyes- PERRL, EOMI, anicteric ENT-dry oral mucosa, oropharynx clear Neck- supple, no JVD, no adenopathy, no thyromegaly; carotids +2/2, no bruits appreciated Lungs- clear to auscultation bilaterally, no rales/wheezes Heart- normal rate, regular rhythm; grade 2 murmur holosystolic, no gallop, no rub appreciated Port in place on the right side of the chest wall, no signs of infection or inflammation Abdomen- normal bowel sounds, nondistended, soft, nontender, no masses or hepatosplenomegaly Extremities- no pretibial edema, no calf tenderness; peripheral pulses intact Neuro- alert, oriented x 3; CN 2-12 grossly intact; motor 5/5 bilaterally;sensation 100% on all extremities; no other gross focal neurologic deficits Principal Diagnosis NEAR SYNCOPE, LIKELY SECONDARY TO HYPOTENSION, DEHYDRATION Discharge Exam General- oriented x 3, not in distress, speaks in sentences with no effort or accessory muscle use Eyes- anicteric Neck- no JVD Lungs- clear breath sounds bilaterally Heart- normal rate, regular rhythm; no murmurs Abdomen- normal bowel sounds, nondistended, soft, no tenderness Extremities- no pretibial edema, no calf tenderness Neuro- alert, oriented x 3; no gross focal neurologic deficits Skin- warm & dry Discharge Data Allergies Allergy/AdvReac Type Severity Reaction Status Date / Time No Known Allergies Allergy Unverified 10/04/19 17:02 Consultations 10/04/19 18:19 ED Decision to Admit Stat Hospital Course (1) Near syncope: Near syncopal episode likely secondary to orthostasis, hypotension Likely secondary to dehydration in the setting of chemotherapy Pancreatic cancer currently on neoadjuvant chemotherapy Status post biliary stent placement -- given IV NSS Blood pressure improved dizziness resolved, ambulating with no problems -- Echo: normal EF, no valvular abnormalities no abnormal rhythm in Telemetry -- blood cultures: negative UA: no signs of UTI -- advised to drink plenty of fluids try to decrease Oxycontin by 50% monitor as outpatient ff up with Dr. Torres this week Mild lactic acid elevation - resolved with IV fluids --Likely secondary to hypotension --Procalcitonin negative, doubt infection --UA negative --Blood cultures negative --Liver function test improving Hypomagnesemia --Likely secondary to poor oral intake -- resolved Thrombocytopenia --Blood count 87--> 57k, no signs of bleed --Likely from chemotherapy -- repeat this week- Sunday , c/o Dr. Torres ff up to be arranged with Dr. Torres this week per Patient's request coordinated with RN Coordinator [employer] Pancreatic cancer, on neoadjuvant chemotherapy, status post biliary stent place ent --Follows with Dr. Ortiz Torres locally for pancreatic cancer --Follows with [facility] for neoadjuvant chemotherapy DVT prophylaxis --SCDs for now, hold anticoagulation for thrombocytopenia Disposition -- d/c home ff up with Dr. Torres as noted above Plan of care and case discussed with patient and her in detail and at length All questions were answered They are understanding, agreeable, comfortable with the plan of care Total Time Total Time Spent Total Time Spent (In Minutes): > 30 minutes Discharge Plan Discharge Items Patient Disposition: Home - Self-Care Reason For Visit: SYNCOPE,PRESYNCOPE Discharge Diagnosis: DEHYDRATION Activity: Resume your previous activity Activity Comment: RESUME ACTIVITY GRADUALLY TOLERATED Lifting: Wait until after follow-up appointment Exercise/Sports: Wait until after follow-up appointment Driving/Machine Use: NO DRIVING UNTIL RE-EVALUATED BY PRIMARY CARE PHYSICIAN Non-emergency contact: Primary Care Provider Call non-emergency contact if: you have any medication questions, your symptoms worsen, your pain is not controlled, your pain is worsening, your pain is unusual for you, your pain is concerning for you and you have a fever Follow-up/Referrals: Ortiz Torres MD [Primary Care Provider] - (Dr Ortiz Torres's office will call you to set up a follow up appointment for you.) Diet: Regular Addtl Attending Provider Instructions: PLEASE DRINK PLENTY OF FLUIDS. TRY TO REDUCE OXYCONTIN TO HALF A TABLET EVERY [address]LLOW UP WITH DR. TORRES THIS WEEK FOR FOLLOW UP VISIT AND REPEAT BLOODWORK - CBC AND BASIC METABOLIC PROFILE. HIS CLINIC WILL BE CALLING YOU SOON FOR THE APPOINTMENT. Pending Studies at Discharge: Yes Studies:: REPEAT BLOODWORK - CBC AND BASIC METABOLIC PROFILE c/o DR. TORRES'S OFFICE Stand-Alone Forms: [facility], Smoking Cessation Medications and DC Order Prescriptions: Continued ondansetron HCl [Zofran] 4 mg tablet 4 mg PO Q6H PRN (Reason: nausea and vomiting) Qty: 20 RF: 0 docusate sodium [Colace] 100 mg Capsule 100 mg PO BID RF: 0 senna 8.6 mg Capsule 8.6 mg PO HS PRN (Reason: Constipation) RF: 0 oxycodone [OxyContin] 20 mg Tablet,Oral Only,Ext.Rel.12 Hr 20 mg PO Q12H PRN (Reason: Pain) RF: 0 loratadine [Claritin] 10 mg Tablet 10 mg PO DAILY RF: 0 Neulasta 6 mg/0.6mL Syringe 0 mg SUBCUT UD RF: 0 Prilosec OTC 20 mg Tablet,Delayed Release (Dr/Ec) 20 mg PO DAILY RF: 0 Discharge Orders: Discharge Order (Routine); Ordered 10/06/19 Ordered By: Harpal Yi Admission Data Admit Date/Time: 10/04/19 19:23 Attending Provider: Harpal Yi Admit Provider: Harpal Yi Primary Care Provider: Ortiz Torres Other Providers: Harpal Yi Other Interventions: Discharge Summary Assessment (RN) Last Done: 10/06/19 13:52 DC Date/Time DO NOT enter until pt leaves facility: 10/06/19 14:20
== END 2019-10-06 14:20 | disposition home or self-care (01) ==
LOC: 2N 15:57 → ED 15:57 → 2N 19:56 → 4W 10-05 14:11

== ENCOUNTER 2019-10-08 13:04 | Inpatient (IN) ==
[2019-10-08] MEDS ORDERED: SODIUM CHLORIDE 0.9% 1000ML 1,000 ML IV ONE (13:24)
[2019-10-08] MEDS ORDERED: SODIUM CHLORIDE 0.9% 250 ML IV ONE (13:25)
[2019-10-08] MEDS ORDERED: SODIUM CHLORIDE 0.9% 1000ML 500 ML IV ONE (13:25)
[2019-10-08 14:03] LABS: Hematocrit (blood only) 32.6 % (37-47); Hemoglobin 10.7 g/dL (12.0-16.0); Mean Corpuscular Hemoglobin 31.2 pg (25-34); Mean Corpuscular Hgb Conc 32.8 g/dL (32-36); Mean Platelet Volume 11.6 fL (7.4-10.4); Platelet Count 34 K/uL (130-400); RDW Coefficient of Variation 15.6 % (11.5-14.5); RDW Standard Deviation 53.3 fL (36.4-46.3); Red Blood Count 3.43 M/uL (4.2-5.4); White Blood Count 0.32 K/uL (4.8-10.8)
[2019-10-08 14:06] LABS: INR 1.3 (0.9-1.1); Partial Thromboplastin Ratio 0.8; Partial Thromboplastin Time 21.4 Seconds (21.0-31.0)
[2019-10-08 14:09] LABS: Alanine Aminotransferase 114 U/L (12-78); Albumin Level 2.9 gm/dl (3.4-5.0); Aspartate Aminotransferase 60 U/L (15-37); BUN Creatinine Ratio 16.2 (10-20); Blood Urea Nitrogen 13 mg/dl (7-18); Calcium 8.5 mg/dl (8.5-10.1); Carbon Dioxide 23 mmol/L (21-32); Chloride 100 mmol/L (98-107); Creatinine Clr Calc Pharmacy 66.7 ml/min; Est GFR (African American) 93.1; Est GFR (Non-African American) 80.3; Glucose 169 mg/dl (70-99); Magnesium 1.7 mg/dl (1.8-2.4); Potassium 4.5 mmol/L (3.5-5.1); Sodium 132 mmol/L (136-145)
[2019-10-08 14:14] LABS: Albumin Globulin Ratio 0.9 (0.9-2); Alkaline Phosphatase 259 U/L (45-117); Bilirubin,Total 2.3 mg/dl (0.2-1); Creatine Kinase 17 U/L (26-192); Creatine Kinase MB < 1.0 ng/ml (0.5-3.6); Globulin 3.1 gm/dl (2.5-4.0); Troponin I < 0.015 ng/ml (0-0.045)
[2019-10-08] MEDS ORDERED: IOVERSOL 100ml IV PRN (14:20)
[2019-10-08] MEDS ORDERED: CEFEPIME 2,000 MG/20 ML VIAL IV STA (14:33)
--- NOTE | 2019-10-08 14:48 | CT Scan Report ---
CT SCAN OF THE ABDOMEN AND PELVIS WITH IV CONTRAST CLINICAL HISTORY: Pancreatic cancer. Elevated bilirubin. COMPARISON STUDY: Abdominal CT dated 08/25/2019. TECHNIQUE: Following the IV administration of 94 cc of Optiray 320, CT scan of the abdomen and pelvi s is performed from the lung bases to the proximal femora. Images are reviewed in the axial, sagittal , and coronal planes. IV contrast was administered without complication. A dose lowering technique wa s utilized adhering to the principles of ALARA. CT DOSE: 288.35 mGy.cm FINDINGS: Lung bases: The tip of a central venous infusion port terminates at the cavoatrial junction. The hear t is normal in size and without pericardial effusion. Emphysematous change is suspected. There is no airspace consolidation or pleural effusion. Dependent atelectasis is noted. Liver: The contrast-enhanced liver is normal in size and contour. The liver demonstrates diffusely di minished attenuation consistent with hepatic steatosis. There is minimal intrahepatic biliary ductal dilatation. The common bile duct stent is in place. Pneumobilia suggests patency of the stent. The he patic veins and portal veins are patent. The low-attenuation right lobe lesion suggested previously i s no longer identified. Gallbladder: The gallbladder is mildly distended. There is mucosal thickening and hyperemia. Gas is n oted within the gallbladder lumen. Mild pericholecystic stranding is observed. Spleen: Normal in size and attenuation. Pancreas: Infiltrative low-attenuation lesion is again seen within the pancreatic head on image #139. This measures up to 3.3 cm in diameter. The lesion demonstrates decreased attenuation as compared to prior studies. There is atrophy of the distal pancreas with marked dilatation of the upstream pancre atic duct. This measures up to 10 mm in diameter. There is marked attenuation of the superior mesente taylor vein adjacent to the mass as seen on July 06 141. The splenic vein is patent. Adrenal glands: Unremarkable. Kidneys: The contrast enhanced kidneys are normal in size and without hydronephrosis. The kidneys enh ance symmetrically. Abdominal vasculature: The abdominal aorta is normal in course and caliber noting mild atheroscleroti c calcification. Bowel: Mild wall thickening and mucosal hyperemia is suggested in the left colon. There are also mild ly thick-walled and hyperemic loops of small bowel in the left upper quadrant. No bowel obstruction i s seen. There is no pneumatosis intestinalis. The appendix is well-visualized and normal. Peritoneum: There is a small volume of pelvic ascites. No intraperitoneal free air is seen. Lymphadenopathy: There are numerous prominent mesenteric lymph nodes which measure up to 6 mm in shor t axis. Pelvic viscera: Small foci of gas are present within the bladder lumen. The bladder is distended but otherwise normal in appearance. The uterus and Adnexa are normal as imaged. Skeletal structures: The skeletal structures are osteopenic. No lytic or blastic lesions are seen. Ch ronic deformity and postoperative change is noted in the right hip. IMPRESSION: 1. Again seen is an infiltrative low-attenuation mass lesion at the pancreatic head/neck junction. Th is is similar in size to prior examinations but demonstrates diminished attenuation. This likely repr esents treatment response. 2. There is only minimal intrahepatic biliary ductal dilatation. A common bile duct stent is in place , and pneumobilia suggests patency of the stent. 3. The gallbladder wall is mildly thickened and hyperemic. There is gas within the gallbladder lumen, as well as mild pericholecystic stranding. These findings are nonspecific and may be related to the presence of an indwelling biliary stent. Ultrasound could be considered for further assessment if the re is concern for acute cholecystitis. 4. There is wall thickening and hyperemia seen involving segments of the left colon as well as severa l small bowel loops in the left upper quadrant. The appearance suggest a nonspecific enterocolitis an d clinical correlation will be required. 5. There is a small volume of pelvic ascites. 6. The low attenuation right lobe hepatic lesion seen on prior examinations is no longer identified. 7. There is marked attenuation of the superior mesenteric vein at the level of the pancreatic mass. T he vessel remains patent. 8. Hepatic steatosis. 9. Gas within the bladder lumen may be related to instrumentation. Correlation with clinical findings and urinalysis will be required. 10. There are numerous prominent mesenteric lymph nodes, likely on a reactive basis. Electronically signed by: Latrell San M.D. 10/08/2019 2:46 PM
[2019-10-08 15:01] LABS: Influenza A virus by PCR Neg for Influ A (Neg); Influenza B virus by PCR Neg for Influ B (Neg)
--- NOTE | 2019-10-08 15:04 | XRay Report ---
SINGLE VIEW CHEST CLINICAL HISTORY: Sepsis. FINDINGS: An AP, portable, upright chest radiograph is compared to study dated 10/04/2019. A right sub clavian central venous infusion port is unchanged in position. The cardiomediastinal silhouette is un remarkable. Chronic interstitial thickening is unchanged. The lungs and pleural spaces are clear. No pneumothorax is seen. The skeletal structures are osteopenic. The bony thorax is grossly intact. IMPRESSION: No active disease in the chest. ACT 112: Negative or not required by law. Electronically signed by: Latrell San M.D. 10/08/2019 3:03 PM
[2019-10-08] MEDS ORDERED: VANCOMYCIN CONSULT ACTIVE PRN (15:36)
[2019-10-08] MEDS ORDERED: CEFEPIME 2,000 MG in SYRINGE 7.5 ML IV SCH (15:45)
[2019-10-08] MEDS ORDERED: PIPERACILL/TAZOBAC CONSULT ACTIVE PRN (15:58)
[2019-10-08] MEDS ORDERED: MAGNESIUM SULFATE / D5W 1 GM/100 ML BAG IV STA (15:59)
[2019-10-08] MEDS ORDERED: ONDANSETRON INJ 2 MG/ML 2 ML VIAL IV STA (16:01)
--- NOTE | 2019-10-08 16:08 | Electrocardiogram Report ---
Test Reason : Blood Pressure : / mmHG Vent. Rate : 111 BPM Atrial Rate : 111 BPM P-R Int : 112 ms QRS Dur : 084 ms QT Int : 336 ms P-R-T Axes : 079 081 034 degrees QTc Int : 456 ms Sinus tachycardia RSR' or QR pattern in V1 suggests right ventricular conduction delay T wave abnormality, consider anterior ischemia Abnormal ECG When compared with ECG of 04-OCT-2019 16:36, Vent. rate has increased BY 41 BPM T wave inversion now evident in Anterior leads Confirmed by John Hathaway ([id number]) on 10/08/2019 4:08:00 PM Referred By: ER Confirmed By:John Hathaway
[2019-10-08] MEDS ORDERED: MAGNESIUM SULFATE 1GM / D5W BAG IV ONE (16:09)
[2019-10-08] MEDS ORDERED: PIPERACILLIN/TAZOBACTAM 4.5 GM/120 ML BAG IV ONE (16:15)
[2019-10-08] MEDS ORDERED: VANCOMYCIN HCL 1,250 MG in SODIUM CHLORIDE 0.9% 500 ML IV ONE (16:15)
--- NOTE | 2019-10-08 16:54 | History & Physical Report ---
Date of Service October 08, 2019 Assessment & Plan (1) Transaminitis: (2) Pancreatic cancer: -Admit to [facility] with telemetry -Patient presenting from home with reports of nausea, vomiting, abdominal pain -History of pancreatic cancer, currently following with Dr. Ortiz Torres and [facility]. She is on FOLFIRINOX regimen with Neulasta, last treatment was infused 10/01 through 10/03. -Admitted to [facility] through 10/05 for near syncope and orthostasis secondary to dehydration. Was at oncologist office today for follow-up and labs were obtained showing pancytopenia and transaminitis. -T. Bilirubin 2.3 (.07 on ), AST 60, ALT 114, alk phos 259 (these are at her recent baseline) -CT ABD/pelvis suggests stent patency and also mild gallbladder wall thickening -Case was discussed with GI, MARIBEL Tejeda; n.p.o. after midnight for possible ERCP with stent exchange -Given neutropenia, also will cover with broad-spectrum antibiotics, IV vancomycin and IV Zosyn; cholangitis is in the differential -Blood cultures -Gallbladder ultrasound, may need general surgery evaluation (3) Hematemesis: -upon arrival to floor, patient had a small amount of hematemesis -abdominal pain not worsening, vitals stable -recheck H&H -start Protonix gtt -? gastritis, PUD, Edith Forde tear -EGD 07/2019 WNL (4) Elevated lactic acid level: -lactate 2.5 -> 1.4 -likely due to dehydration however may have sepsis -broad spectrum antibiotics as above -f/u RUQ US -check UA (5) Hypomagnesemia: (6) Pancytopenia: -Discussed with Dr. Ortiz Torres -Likely secondary to recent chemotherapy, received Neulasta on , Dr. Torres expects counts to improve -Monitor CBC -neutropenic with WBC 320; neutropenic precautions ordered (7) Hypophosphatemia: -likely due to GI loss with vomiting -replace, follow electrolytes (8) Acute electrocardiogram changes: -EKG shows new t-wave inversions in the anterior leads -no chest pain, trop negative -replace electrolytes; follow up EKG in AM -recent echo 10/05/19: Ef 60-65%, normal diastolic function, no wall motion abnormalities (9) DVT prophylaxis: -SCDs due to pancytopenia History of Present Illness Chief Complaint: Abdominal pain, nausea, vomiting, diarrhea Primary Care Provider: Ortiz Torres MD 64-year-old female who presents to the ED by referral of her oncologist office for evaluation of abdominal pain, nausea, vomiting, diarrhea. Patient with history of pancreatic cancer currently undergoing chemotherapy. Was recently ad mitted to [facility] through 10/05 for near syncope and orthostasis due to dehydration in the setting of chemotherapy. Infection was ruled out. Shortly after returning home, patient developed nausea, vomiting, abdominal pain, diarrhea. Reports she has been having chronic abdominal cramping since her cancer diagnosis however this pain is different. Reports the pain as located in her mid abdomen and describes it as a persistent ache. She denies any hematemesis, coffee-ground emesis, bright red bleeding per rectum, dark tarry stools. No fevers or chills. She denies chest pain and shortness of breath. Reports lightheadedness and dizziness however no syncopal event. No fevers or chills. She denies any urinary symptoms. Patient presented to her oncologist office today for follow-up from recent hospital admission. She did not appear to be well. Labs were obtained showing pancytopenia and elevated bilirubin, other LFTs elevated however unchanged from recent baseline. Patient was sent to the ED for further evaluation. Upon arrival to the ED, patient was hypotensive at 79/44. BP improved after IVF. Labs show WBC 320, Hgb 10.7, platelets 34, lactic acid 2.5, total bili 2.3, AST 60, ALT 114, alk phos 259. CT ABD/pelvis suggest biliary stent patency and mild gallbladder wall thickening. Patient received IV Zofran, IVF. Allergies Allergy/AdvReac Type Severity Reaction Status Date / Time codeine Allergy Unknown Unverified 10/08/19 14:15 Home Medications Home Medications Medication Instructions Recorded Confirmed Type docusate sodium [Colace] 100 mg PO BID 08/25/19 10/08/19 History oxycodone [OxyContin] 20 mg PO Q12H PRN 08/25/19 10/08/19 History senna 8.6 mg PO HS PRN 08/25/19 10/08/19 History Neulasta 0 mg SUBCUT UD 10/04/19 10/08/19 History Prilosec OTC 20 mg PO DAILY 10/04/19 10/08/19 History loratadine [Claritin] 10 mg PO DAILY 10/04/19 10/08/19 History miwwge-xnkccqti-hgyqxre [Creon] 1 cap PO TIDM 10/08/19 10/08/19 History ondansetron HCl [Zofran] 8 mg PO Q6H PRN 10/08/19 10/08/19 History prochlorperazine maleate 5 mg PO BID PRN 10/08/19 10/08/19 History [Compazine] simethicone 125 mg PO BID PRN 10/08/19 10/08/19 History Past Med/Surg History Medical History Pancreatic cancer Surgical History No pertinent past surgical history Family History Other No pertinent family history Social History Preferred Language: Maori Communication Ability: Effective Sole Cutter Required: No Beliefs That Will Affect Care: None marital status: Current Living Situation: Spouse Feels Safe at Home: Yes Safety Concerns: Feels Safe At This Time Smoking Status: Never smoker Do You Dip or Chew Tobacco: No ; Second Hand Exposure: No ; Hx Alcohol Use: No Hx Substance Use: No Review of Systems Review of Systems: ROS per HPI, all other systems reviewed and negative Physical Exam Constitutional: WD/WN, vitals as above + ill appearing; no acute distress Eyes: PERRL, conjunctivae normal, anicteric sclerae ENMT: external ear and nose normal, oropharynx normal Respiratory: normal respiratory effort, lungs clear to auscultation Cardiovascular: Rate/Rhythm: regular rate and regular rhythm Vessels: normal peripheral pulses Extremities: no edema Gastrointestinal (Abdomen): Inspection/Auscultation: normal bowel sounds; abdomen not distended Percussion/Palpation: + abdomen tender (Diffusely) and abdomen soft; no hepatosplenomegaly Musculoskeletal: no cyanosis or clubbing, extremities motor strength 5/5 Skin: no rashes, warm and dry Neurologic: PERRL, EOMI, accommodation nl, no face palsy, no dysarthria Psychiatric: A+Ox3, euthymic affect Results & Data Vital Signs (Past 12 Hours) Vital Signs Temp Pulse Resp BP Pulse Ox 10/08/19 15:30 87 16 97 10/08/19 15:00 93 H 15 99 10/08/19 14:30 104 H 15 10/08/19 13:40 111 H 20 99 10/08/19 13:30 109 H 18 97 10/08/19 13:19 114 H 16 113/93 99 10/08/19 13:12 36.8 C 122 H 20 79/44 L 99 Laboratory Results Short CBC 10/08/19 Range/Units 13:40 WBC 0.32 L* (4.8-10.8) K/uL Hgb 10.7 L (12.0-16.0) g/dL Hct 32.6 L (37-47) % Plt Count 34 L (130-400) K/uL BMP 10/08/19 13:40 Sodium 132 L Potassium 4.5 Chloride 100 Carbon Dioxide 23 BUN 13 Creatinine 0.78 Glucose 169 H Calcium 8.5 Cardiac Enzymes 10/08/19 Range/Units 13:40 Total Creatine Kinase 17 L (26-192) U/L CK-MB (CK-2) < 1.0 (0.5-3.6) ng/ml Troponin I < 0.015 (0-0.045) ng/ml Liver Function 10/08/19 10/08/19 Range/Units 13:40 13:40 Total Bilirubin 2.3 H 2.3 H (0.2-1) mg/dl AST 60 H (15-37) U/L ALT 114 H (12-78) U/L Alkaline Phosphatase 259 H (45-117) U/L Albumin 2.9 L (3.4-5.0) gm/dl Diagnostic Findings CT ABD/PELVIS IMPRESSION: 1. Again seen is an infiltrative low-attenuation mass lesion at the pancreatic head/neck junction. This is similar in size to prior examinations but demonstrates diminished attenuation. This likely represents treatment response. 2. There is only minimal intrahepatic biliary ductal dilatation. A common bile duct stent is in place, and pneumobilia suggests patency of the stent. 3. The gallbladder wall is mildly thickened and hyperemic. There is gas within the gallbladder lumen, as well as mild pericholecystic stranding. These findings are nonspecific and may be related to the presence of an indwelling biliary stent. Ultrasound could be considered for further assessment if there is concern for acute cholecystitis. 4. There is wall thickening and hyperemia seen involving segments of the left colon as well as several small bowel loops in the left upper quadrant. The appearance suggest a nonspecific enterocolitis and clinical correlation will be required. 5. There is a small volume of pelvic ascites. 6. The low attenuation right lobe hepatic lesion seen on prior examinations is no longer identified. 7. There is marked attenuation of the superior mesenteric vein at the level of the pancreatic mass. The vessel remains patent. 8. Hepatic steatosis. 9. Gas within the bladder lumen may be related to instrumentation. Correlation with clinical findings and urinalysis will be required. 10. There are numerous prominent mesenteric lymph nodes, likely on a reactive basis. CXR IMPRESSION: No active disease in the chest. Code Status & VTE Plan VTE Prophylaxis Plan VTE Prophylaxis will be ordered: Yes Supervising Physician Co-Signing Physician Notes Attending addendum: The patient was seen and examined in emergency room in presence of her family members She has pancreatic cancer with pancreatic stent placement and has been ongoing chemotherapy She was sent in from oncologist office with abdominal pain, nausea, vomiting and diarrhea with profound weakness Complaint to have discomfort in the abdomen in the emergency room during examination On examination No apparent distress at rest Hemodynamically stable with blood pressure on the lower side of normal and not tachycardic Chest-clear to auscultate bilaterally Heart-S1-S2 Abdomen-soft, tender in the epigastrium and right upper quadrant, no guarding but rebound tenderness positive Extremities-trace edema bilaterally [employer]-alert, awake and oriented x3. Generally weak but no focal sensory or motor deficit Admission labs, imaging studies reviewed Has neutropenia with abdominal pain, nausea, vomiting and diarrhea Pancreatic cancer status post pancreatic stent with ongoing chemo Gallbladder wall thickening rule out acute cholecystitis Has been started with intravenous Zosyn and vancomycin GI consult and may need to consult surgery depending on results of ultrasound Agree with assessment and plan as outlined above by Alyssa Benedict
[2019-10-08] MEDS ORDERED: POTASSIUM PHOS 3 MMOL/1 ML INFUSION IV ONE (16:56)
--- NOTE | 2019-10-08 17:55 | Emergency Department Note ---
Entered by Lexy Pruett acting as a scribe for Shawn Duarte MD History of Present Illness General Chief complaint: Dehydration Stated complaint: DEHYDRATED, STENT CHECK - DR REF Time Seen by Provider: 10/08/19 13:19 Source: patient History of Present Illness Onset (ago): hour(s) (this morning) Location: head Pain Consistency: + other (episode) Maximum Pain Intensity: 4 Quality: + other (dehydration) Associated symptoms: + denies other symptoms (fever) and + other (low blood pressure, elevated white count, abnormal bilirubin levels, fatigue) The patient is a 64 year old female that is presenting to the Emergency Room with complaints of an episode of dehydration that was found this morning. The patient reports that she was at Dr. Lowe office this morning and was found to have low blood pressure, a high white blood count, and an abnormal bilirubin level. She states that Dr. Torres decided to refer her to the ED given the abnormal bilirubin level and her history of pancreatic cancer and biliary stents. She notes that she is feeling fatigued and worn down recently. She denies any fevers. Home Medications Home Medications Medication Instructions Recorded Confirmed Type docusate sodium [Colace] 100 mg PO BID 08/25/19 10/08/19 History oxycodone [OxyContin] 20 mg PO Q12H PRN 08/25/19 10/08/19 History senna 8.6 mg PO HS PRN 08/25/19 10/08/19 History Neulasta 0 mg SUBCUT UD 10/04/19 10/08/19 History Prilosec OTC 20 mg PO DAILY 10/04/19 10/08/19 History loratadine [Claritin] 10 mg PO DAILY 10/04/19 10/08/19 History pllmqz-vvibqmli-yvqtebi [Creon] 1 cap PO TIDM 10/08/19 10/08/19 History ondansetron HCl [Zofran] 8 mg PO Q6H PRN 10/08/19 10/08/19 History prochlorperazine maleate 5 mg PO BID PRN 10/08/19 10/08/19 History [Compazine] simethicone 125 mg PO BID PRN 10/08/19 10/08/19 History Allergies Allergy/AdvReac Type Severity Reaction Status Date / Time codeine Allergy Unknown Unverified 10/08/19 14:15 Past Med/Surg History Medical History Pancreatic cancer Surgical History No pertinent past surgical history Family History Other No pertinent family history Social History Preferred Language: Senegalese Communication Ability: Effective Hand Cementer Required: No Beliefs That Will Affect Care: None marital status: Current Living Situation: Spouse Feels Safe at Home: Yes Safety Concerns: Feels Safe At This Time Smoking Status: Never smoker Do You Dip or Chew Tobacco: No ; Second Hand Exposure: No ; Hx Alcohol Use: No Hx Substance Use: No Review of Systems See HPI for pertinent positives & negatives. and A total of 10 systems reviewed and were otherwise negative Physical Exam Vital Signs Vital Signs - 24 hr 10/08/19 13:12 10/08/19 13:19 10/08/19 13:30 Temperature 36.8 C Temperature Source Oral Pulse Rate 122 H 114 H 109 H Pulse Rate from SpO2 Sensor 114 H 110 H Pulse Rhythm Regular Pulse Strength Normal Respiratory Rate 20 16 18 Respiratory Effort / Characteristics Non-Labored Spontaneous Respiratory Depth Normal Respiratory Pattern Regular Blood Pressure 79/44 L 113/93 Blood Pressure Mean 55 103 Blood Pressure Position Sitting Pulse Oximetry 99 99 97 Oxygen Delivery Method Room Air Sepsis Recent Fever Within 48 Hours No Sepsis New/Unexplained Change in Mental Status No Sepsis Action Taken by Nursing No Action Required 10/08/19 13:40 10/08/19 14:30 10/08/19 15:00 Temperature Temperature Source Pulse Rate 111 H 104 H 93 H Pulse Rate from SpO2 Sensor 94 H Pulse Rhythm Regular Pulse Strength Respiratory Rate 20 15 15 Respiratory Effort / Characteristics Respiratory Depth Respiratory Pattern Blood Pressure Blood Pressure Mean Blood Pressure Position Pulse Oximetry 99 99 Oxygen Delivery Method Room Air Sepsis Recent Fever Within 48 Hours Sepsis New/Unexplained Change in Mental Status Sepsis Action Taken by Nursing 10/08/19 15:30 Temperature Temperature Source Pulse Rate 87 Pulse Rate from SpO2 Sensor 87 Pulse Rhythm Pulse Strength Respiratory Rate 16 Respiratory Effort / Characteristics Respiratory Depth Respiratory Pattern Blood Pressure Blood Pressure Mean Blood Pressure Position Pulse Oximetry 97 Oxygen Delivery Method Sepsis Recent Fever Within 48 Hours Sepsis New/Unexplained Change in Mental Status Sepsis Action Taken by Nursing GENERAL: Cachectic in appearance. Awake, alert, chronically ill-appearing, in no acute distress HENT: Normocephalic, atraumatic. Oropharynx unremarkable. EYES: Normal conjunctiva. Sclera non-icteric. NECK: Supple. No nuchal rigidity. FROM. No JVD. RESPIRATORY: Clear to auscultation. CARDIAC: Regular rate, normal rhythm. Extremities warm and well perfused. Pulses equal. ABDOMEN: Soft, non-distended. No tenderness to palpation. No rebound or guarding. No masses. RECTAL: Deferred. MUSCULOSKELETAL: Chest examination reveals no tenderness. The back is symmetrical on inspection without obvious abnormality. There is no CVA tenderness to palpation. No joint edema. LOWER EXTREMITIES: Calves are equal size bilaterally and non-tender. No edema. No discoloration. NEURO: Normal sensorium. No sensory or motor deficits noted. SKIN: Jaundiced Course Course 1321:The patient was evaluated in room B10. A complete history and physical examination was performed. Upon evaluation of the patient's records, the patient has a history of pancreatic cancer and is undergoing chemotherapy at [facility]. She was recently admitted for a neutropenic fever. 1445: I discussed the patient's case with MARIBEL Wolfe, who will evaluate the patient for further management and care with Dr. Benedict as the attending physician. 1510: Upon reevaluation, the patient is resting comfortably. I discussed laboratory and radiographic results with the patient. She verbalized agreement of the treatment plan. The patient will be evaluated for further management and care. Administered Medications Acetaminophen (Tylenol) 650 mg PO Q4H PRN PRN Reason: Fever Stop: 11/08/19 15:35 Last Admin: 10/09/19 15:47 Dose: 650 mg Documented by: [id number] Lipase/Protease/Amylase (Pancreaze (Lipase 10,500u)) 1 cap PO TIDM COLT Stop: 11/08/19 07:59 Last Admin: 10/09/19 15:59 Dose: 1 cap Documented by: [id number] Admin: 10/09/19 11:33 Dose: 1 cap Documented by: [id number] Admin: 10/09/19 07:55 Dose: 1 cap Documented by: [id number] Sodium Chloride (Nss 1000ml) 1,000 mls @ 125 mls/hr IV .Q8H COLT Stop: 11/07/19 15:44 Last Infusion: 10/09/19 17:54 Dose: 0 mls/hr Documented by: [id number] Admin: 10/09/19 17:53 Dose: Not Given Documented by: [id number] Admin: 10/09/19 11:33 Dose: 125 mls/hr Documented by: [id number] Infusion: 10/09/19 11:33 Dose: 125 mls/hr Documented by: [id number] Admin: 10/09/19 04:09 Dose: 125 mls/hr Documented by: [id number] Infusion: 10/09/19 04:08 Dose: 125 mls/hr Documented by: [id number] Admin: 10/08/19 20:08 Dose: 125 mls/hr Documented by: [id number] Vancomycin HCl 1,000 mg/ (Sodium Chloride) 270 mls @ 125 mls/hr IV Q16H COLT Stop: 10/11/19 07:59 Last Infusion: 10/09/19 10:05 Dose: 0 mls/hr Documented by: [id number] Admin: 10/09/19 07:52 Dose: 125 mls/hr Documented by: [id number] Piperacillin Sod/Tazobactam (Sod 3.375 gm/ Dextrose) 115 mls @ 28.75 mls/hr IV Q8H COLT; Protocol Stop: 10/10/19 21:59 Last Admin: 10/09/19 17:45 Dose: 28.8 mls/hr Documented by: [id number] Infusion: 10/09/19 11:54 Dose: 0 mls/hr Documented by: [id number] Admin: 10/09/19 07:54 Dose: 28.8 mls/hr Documented by: [id number] Infusion: 10/09/19 00:26 Dose: 0 mls/hr Documented by: [id number] Admin: 10/08/19 23:10 Dose: 200 mls/hr Documented by: [id number] Pantoprazole Sodium 40 mg/ (Dextrose) 100 mls @ 20 mls/hr IV Q5H COLT Stop: 11/07/19 20:29 Last Infusion: 10/09/19 18:16 Dose: 0 mg/hr, 0 mls/hr Documented by: [id number] Admin: 10/09/19 13:19 Dose: Not Given Documented by: [id number] Admin: 10/09/19 13:04 Dose: 8 mg/hr, 20 mls/hr Documented by: [id number] Infusion: 10/09/19 12:58 Dose: 0 mg/hr, 0 mls/hr Documented by: [id number] Infusion: 10/09/19 11:53 Dose: 8 mg/hr, 20 mls/hr Documented by: [id number] Infusion: 10/09/19 07:35 Dose: 0 mg/hr, 0 mls/hr Documented by: [id number] Admin: 10/09/19 04:09 Dose: 8 mg/hr, 20 mls/hr Documented by: [id number] Infusion: 10/09/19 04:06 Dose: 8 mg/hr, 20 mls/hr Documented by: [id number] Infusion: 10/09/19 00:23 Dose: 8 mg/hr, 20 mls/hr Documented by: [id number] Infusion: 10/08/19 23:11 Dose: 0 mg/hr, 0 mls/hr Documented by: [id number] Admin: 10/08/19 21:54 Dose: 8 mg/hr, 20 mls/hr Documented by: [id number] Ondansetron HCl (Zofran) 4 mg IV Q6H PRN PRN Reason: nausea Stop: 11/07/19 16:44 Last Admin: 10/09/19 16:23 Dose: 4 mg Documented by: [id number] Discontinued Medications Acetaminophen (Tylenol) 650 mg PO NOW STA Stop: 10/08/19 23:58 Last Admin: 10/09/19 00:21 Dose: 650 mg Documented by: [id number] Heparin Sodium (Beef Lung) (Heparin Sod 10 Unit/Ml Flush) Confirm Administered Dose 5 ml FLUSH .STK-MED ONE Stop: 10/08/19 20:59 Last Admin: 10/08/19 21:56 Dose: 5 ml Documented by: [id number] Sodium Chloride (Nss 1000ml) 1,000 mls @ 999 mls/hr IV .Q1H1M ONE Stop: 10/08/19 14:24 Last Infusion: 10/08/19 15:20 Dose: 0 mls/hr Documented by: [id number] Admin: 10/08/19 14:02 Dose: 999 mls/hr Documented by: [id number] Sodium Chloride (Nss) 250 mls @ 999 mls/hr IV .Q16M ONE Stop: 10/08/19 13:40 Last Infusion: 10/08/19 15:20 Dose: 0 mls/hr Documented by: [id number] Admin: 10/08/19 14:02 Dose: 999 mls/hr Documented by: [id number] Sodium Chloride (Nss 1000ml) 500 mls @ 999 mls/hr IV .Q31M ONE Stop: 10/08/19 13:55 Last Infusion: 10/08/19 16:08 Dose: 0 mls/hr Documented by: [id number] Admin: 10/08/19 14:02 Dose: 999 mls/hr Documented by: [id number] Vancomycin HCl 1,250 mg/ (Sodium Chloride) 525 mls @ 200 mls/hr IV NOW ONE Stop: 10/08/19 18:52 Last Infusion: 10/08/19 20:08 Dose: 0 mls/hr Documented by: [id number] Admin: 10/08/19 17:10 Dose: 200 mls/hr Documented by: [id number] Piperacillin Sod/Tazobactam Sod (Zosyn) 4.5 gm in 120 mls @ 240 mls/hr IV NOW ONE Stop: 10/08/19 16:44 Last Infusion: 10/08/19 17:15 Dose: 0 mls/hr Documented by: [id number] Admin: 10/08/19 16:19 Dose: 240 mls/hr Documented by: [id number] Potassium Phosphate 9 mmol/ (Sodium Chloride) 253 mls @ 88 mls/hr IV ONE ONE Stop: 10/08/19 22:37 Last Admin: 10/08/19 21:57 Dose: Not Given Documented by: [id number] Pantoprazole Sodium 80 mg/ (Dextrose) 120 mls @ 480 mls/hr IV TODAY@2014 [facility] Stop: 10/08/19 20:29 Last Infusion: 10/08/19 21:58 Dose: 0 mls/hr Documented by: [id number] Admin: 10/08/19 21:08 Dose: 480 mls/hr Documented by: [id number] Ioversol (Optiray 320 100ml) 94 ml IV ONCE PRN PRN Reason: Interaction Checking Stop: 10/12/19 14:19 Last Admin: 10/08/19 14:20 Dose: 94 ml Documented by: [id number] Magnesium Sulfate/Dextrose (Magnesium Sulfate / D5w) Confirm Administered Dose 2 gm IV .STK-MED ONE Stop: 10/08/19 16:10 Last Admin: 10/08/19 16:19 Dose: 2 gm Documented by: [id number] Ondansetron HCl (Zofran) 4 mg IV NOW STA Stop: 10/08/19 16:02 Last Admin: 10/08/19 16:18 Dose: 4 mg Documented by: [id number] Ondansetron HCl (Zofran) Confirm Administered Dose 4 mg .ROUTE .STK-MED ONE Stop: 10/08/19 19:23 Last Admin: 10/08/19 19:26 Dose: 4 mg Documented by: [id number] Medical Decision Making Differential Diagnosis Differential Diagnosis includes but is not limited to dehydration, stroke, anemia, hypoglycemia, hyponatremia, hypernatremia, urinary tract infection, pneumonia, bronchitis, sepsis, gastroenteritis, additional abdominal pathology, metabolic abnormalities and infections. Medical Records Attestation: I reviewed the patient's medical records. Home Medications Current Medication List: was personally reviewed by me Laboratory Data Attestation: I reviewed the patient's lab results. Result diagrams: 10/09/19 07:35 10/09/19 07:35 Lab Results 10/08/19 10/08/19 10/08/19 Range/Units 13:40 13:40 13:40 WBC 0.32 L* (4.8-10.8) K/uL RBC 3.43 L (4.2-5.4) M/uL Hgb 10.7 L (12.0-16.0) g/dL Hct 32.6 L (37-47) % MCV 95.0 (80-100) fL MCH 31.2 (25-34) pg MCHC 32.8 (32-36) g/dL RDW Std Deviation 53.3 H (36.4-46.3) fL RDW Coeff of Rajesh 15.6 H (11.5-14.5) % Plt Count 34 L (130-400) K/uL MPV 11.6 H (7.4-10.4) fL Immature Gran % (Auto) Cancelled Neut % (Auto) Cancelled Lymph % (Auto) Cancelled Karnes % (Auto) Cancelled Eos % (Auto) Cancelled Baso % (Auto) Cancelled Immature Gran # (Auto) Cancelled Neut # (Auto) Cancelled Lymph # (Auto) Cancelled Karnes # (Auto) Cancelled Eos # (Auto) Cancelled Baso # (Auto) Cancelled Neutrophils % (Manual) Cancelled Band Neutrophils % Cancelled Lymphocytes % (Manual) Cancelled Prolymphocyte % Cancelled Reactive Lymphs % (Man) Cancelled Monocytes % (Manual) Cancelled Eosinophils % (Manual) Cancelled Basophils % (Manual) Cancelled Metamyelocytes % (Man) Cancelled Myelocytes % (Man) Cancelled Promyelocytes % (Man) Cancelled Blast Cells % (Manual) Cancelled Plasma Cell % (Manual) Cancelled Other Cells % Cancelled Nucleated RBC % Cancelled Neutrophils # (Manual) Cancelled Band Neutrophils # Cancelled Total Absolute Neuts Cancelled Lymphocytes # (Manual) Cancelled Prolymphocyte # Cancelled Reactive Lymphs # Cancelled Total Abs Lymphocytes Cancelled Monocytes # (Manual) Cancelled Eosinophils # (Manual) Cancelled Basophils # (Manual) Cancelled Metamyelocytes # (Man) Cancelled Myelocytes # (Manual) Cancelled Promyelocytes # (Man) Cancelled Blast Cells # (Man) Cancelled Plasma Cell # (Manual) Cancelled Other Cells # Cancelled Nucleated RBCs # (Man) Cancelled Hypersegmented Neuts Cancelled Hyposegmented Neuts Cancelled Hypogranular Neuts Cancelled Large Granular Lymphs Cancelled # Lrg Granular Lymphs Cancelled Hairy Cells Cancelled Smudge Cells Cancelled Toxic Granulation Cancelled Toxic Vacuolation Cancelled Dohle Bodies Cancelled Jarad Rods Cancelled Hypogranular Platelets Cancelled Clumped Platelets Cancelled Giant Platelets Cancelled Platelet Satelliting Cancelled RBC Morphology Cancelled Polychromasia Cancelled Hypochromasia Cancelled Poikilocytosis Cancelled Basophilic Stippling Cancelled Anisocytosis Cancelled Microcytosis Cancelled Macrocytosis Cancelled Spherocytes Cancelled Pappenheimer Bodies Cancelled Sickle Cells Cancelled Target Cells Cancelled Tear Drop Cells Cancelled Ovalocytes Cancelled Stomatocytes Cancelled Dorsey-Devon Bodies Cancelled Echinocytes Cancelled Acanthocytes (Spur) Cancelled Rouleaux Cancelled RBC Agglutinates Cancelled Schistocytes Cancelled RBC Morph Comment Cancelled Sezary Cell Cancelled PT 13.0 H (9.0-12.0) Seconds INR 1.3 H (0.9-1.1) APTT 21.4 (21.0-31.0) Seconds PTT Ratio 0.8 Sodium 132 L (136-145) mmol/L Potassium 4.5 (3.5-5.1) mmol/L Chloride 100 (98-107) mmol/L Carbon Dioxide 23 (21-32) mmol/L Anion Gap 8.0 (3-11) BUN 13 (7-18) mg/dl Creatinine 0.78 (0.6-1.2) mg/dl Est Cr Clr Drug Dosing 66.7 ml/min Est GFR ( Amer) 93.1 Est GFR (Non-Af Amer) 80.3 BUN/Creatinine Ratio 16.2 (10-20) Glucose 169 H (70-99) mg/dl Lactate (0.4-2.0) mmol/L Calcium 8.5 (8.5-10.1) mg/dl Phosphorus (2.5-4.9) mg/dl Magnesium 1.7 L (1.8-2.4) mg/dl Total Bilirubin 2.3 H (0.2-1) mg/dl AST 60 H (15-37) U/L ALT 114 H (12-78) U/L Alkaline Phosphatase 259 H (45-117) U/L Total Creatine Kinase 17 L (26-192) U/L CK-MB (CK-2) < 1.0 (0.5-3.6) ng/ml CK/CKMB % Calc TNP Troponin I < 0.015 (0-0.045) ng/ml Total Protein 6.0 L (6.4-8.2) gm/dl Albumin 2.9 L (3.4-5.0) gm/dl Globulin 3.1 (2.5-4.0) gm/dl Albumin/Globulin Ratio 0.9 (0.9-2) Lipase (73-393) U/L Procalcitonin (0-0.5) ng/ml Influenza Type A (PCR) (Neg) Influenza Type B (PCR) (Neg) 10/08/19 10/08/19 10/08/19 Range/Units 13:40 13:40 13:40 WBC (4.8-10.8) K/uL RBC (4.2-5.4) M/uL Hgb (12.0-16.0) g/dL Hct (37-47) % MCV (80-100) fL MCH (25-34) pg MCHC (32-36) g/dL RDW Std Deviation (36.4-46.3) fL RDW Coeff of Rajesh (11.5-14.5) % Plt Count (130-400) K/uL MPV (7.4-10.4) fL Immature Gran % (Auto) Neut % (Auto) Lymph % (Auto) Karnes % (Auto) Eos % (Auto) Baso % (Auto) Immature Gran # (Auto) Neut # (Auto) Lymph # (Auto) Karnes # (Auto) Eos # (Auto) Baso # (Auto) Neutrophils % (Manual) Band Neutrophils % Lymphocytes % (Manual) Prolymphocyte % Reactive Lymphs % (Man) Monocytes % (Manual) Eosinophils % (Manual) Basophils % (Manual) Metamyelocytes % (Man) Myelocytes % (Man) Promyelocytes % (Man) Blast Cells % (Manual) Plasma Cell % (Manual) Other Cells % Nucleated RBC % Neutrophils # (Manual) Band Neutrophils # Total Absolute Neuts Lymphocytes # (Manual) Prolymphocyte # Reactive Lymphs # Total Abs Lymphocytes Monocytes # (Manual) Eosinophils # (Manual) Basophils # (Manual) Metamyelocytes # (Man) Myelocytes # (Manual) Promyelocytes # (Man) Blast Cells # (Man) Plasma Cell # (Manual) Other Cells # Nucleated RBCs # (Man) Hypersegmented Neuts Hyposegmented Neuts Hypogranular Neuts Large Granular Lymphs # Lrg Granular Lymphs Hairy Cells Smudge Cells Toxic Granulation Toxic Vacuolation Dohle Bodies Jarad Rods Hypogranular Platelets Clumped Platelets Giant Platelets Platelet Satelliting RBC Morphology Polychromasia Hypochromasia Poikilocytosis Basophilic Stippling Anisocytosis Microcytosis Macrocytosis Spherocytes Pappenheimer Bodies Sickle Cells Target Cells Tear Drop Cells Ovalocytes Stomatocytes Dorsey-Devon Bodies Echinocytes Acanthocytes (Spur) Rouleaux RBC Agglutinates Schistocytes RBC Morph Comment Sezary Cell PT (9.0-12.0) Seconds INR (0.9-1.1) APTT (21.0-31.0) Seconds PTT Ratio Sodium (136-145) mmol/L Potassium (3.5-5.1) mmol/L Chloride (98-107) mmol/L Carbon Dioxide (21-32) mmol/L Anion Gap (3-11) BUN (7-18) mg/dl Creatinine (0.6-1.2) mg/dl Est Cr Clr Drug Dosing ml/min Est GFR ( Amer) Est GFR (Non-Af Amer) BUN/Creatinine Ratio (10-20) Glucose (70-99) mg/dl Lactate 2.5 H* (0.4-2.0) mmol/L Calcium (8.5-10.1) mg/dl Phosphorus (2.5-4.9) mg/dl Magnesium (1.8-2.4) mg/dl Total Bilirubin (0.2-1) mg/dl AST (15-37) U/L ALT (12-78) U/L Alkaline Phosphatase (45-117) U/L Total Creatine Kinase (26-192) U/L CK-MB (CK-2) (0.5-3.6) ng/ml CK/CKMB % Calc Troponin I (0-0.045) ng/ml Total Protein (6.4-8.2) gm/dl Albumin (3.4-5.0) gm/dl Globulin (2.5-4.0) gm/dl Albumin/Globulin Ratio (0.9-2) Lipase 19 L (73-393) U/L Procalcitonin 0.57 H (0-0.5) ng/ml Influenza Type A (PCR) (Neg) Influenza Type B (PCR) (Neg) 10/08/19 10/08/19 10/08/19 Range/Units 13:40 13:40 13:57 WBC (4.8-10.8) K/uL RBC (4.2-5.4) M/uL Hgb (12.0-16.0) g/dL Hct (37-47) % MCV (80-100) fL MCH (25-34) pg MCHC (32-36) g/dL RDW Std Deviation (36.4-46.3) fL RDW Coeff of Rajesh (11.5-14.5) % Plt Count (130-400) K/uL MPV (7.4-10.4) fL Immature Gran % (Auto) Neut % (Auto) Lymph % (Auto) Karnes % (Auto) Eos % (Auto) Baso % (Auto) Immature Gran # (Auto) Neut # (Auto) Lymph # (Auto) Karnes # (Auto) Eos # (Auto) Baso # (Auto) Neutrophils % (Manual) Band Neutrophils % Lymphocytes % (Manual) Prolymphocyte % Reactive Lymphs % (Man) Monocytes % (Manual) Eosinophils % (Manual) Basophils % (Manual) Metamyelocytes % (Man) Myelocytes % (Man) Promyelocytes % (Man) Blast Cells % (Manual) Plasma Cell % (Manual) Other Cells % Nucleated RBC % Neutrophils # (Manual) Band Neutrophils # Total Absolute Neuts Lymphocytes # (Manual) Prolymphocyte # Reactive Lymphs # Total Abs Lymphocytes Monocytes # (Manual) Eosinophils # (Manual) Basophils # (Manual) Metamyelocytes # (Man) Myelocytes # (Manual) Promyelocytes # (Man) Blast Cells # (Man) Plasma Cell # (Manual) Other Cells # Nucleated RBCs # (Man) Hypersegmented Neuts Hyposegmented Neuts Hypogranular Neuts Large Granular Lymphs # Lrg Granular Lymphs Hairy Cells Smudge Cells Toxic Granulation Toxic Vacuolation Dohle Bodies Jarad Rods Hypogranular Platelets Clumped Platelets Giant Platelets Platelet Satelliting RBC Morphology Polychromasia Hypochromasia Poikilocytosis Basophilic Stippling Anisocytosis Microcytosis Macrocytosis Spherocytes Pappenheimer Bodies Sickle Cells Target Cells Tear Drop Cells Ovalocytes Stomatocytes Dorsey-Devon Bodies Echinocytes Acanthocytes (Spur) Rouleaux RBC Agglutinates Schistocytes RBC Morph Comment Sezary Cell PT (9.0-12.0) Seconds INR (0.9-1.1) APTT (21.0-31.0) Seconds PTT Ratio Sodium (136-145) mmol/L Potassium (3.5-5.1) mmol/L Chloride (98-107) mmol/L Carbon Dioxide (21-32) mmol/L Anion Gap (3-11) BUN (7-18) mg/dl Creatinine (0.6-1.2) mg/dl Est Cr Clr Drug Dosing ml/min Est GFR ( Amer) Est GFR (Non-Af Amer) BUN/Creatinine Ratio (10-20) Glucose (70-99) mg/dl Lactate (0.4-2.0) mmol/L Calcium (8.5-10.1) mg/dl Phosphorus 2.2 L (2.5-4.9) mg/dl Magnesium (1.8-2.4) mg/dl Total Bilirubin 2.3 H (0.2-1) mg/dl AST (15-37) U/L ALT (12-78) U/L Alkaline Phosphatase (45-117) U/L Total Creatine Kinase (26-192) U/L CK-MB (CK-2) (0.5-3.6) ng/ml CK/CKMB % Calc Troponin I (0-0.045) ng/ml Total Protein (6.4-8.2) gm/dl Albumin (3.4-5.0) gm/dl Globulin (2.5-4.0) gm/dl Albumin/Globulin Ratio (0.9-2) Lipase (73-393) U/L Procalcitonin (0-0.5) ng/ml Influenza Type A (PCR) Neg for Influ A (Neg) Influenza Type B (PCR) Neg for Influ B (Neg) Imaging Data Radiologist's Impression: Radiology results as stated below per my review and the radiologist's interpretation: CT SCAN OF THE ABDOMEN AND PELVIS WITH IV CONTRAST CLINICAL HISTORY: Pancreatic cancer. Elevated bilirubin. COMPARISON STUDY: Abdominal CT dated 08/25/2019. TECHNIQUE: Following the IV administration of 94 cc of Optiray 320, CT scan of the abdomen and pelvis is performed from the lung bases to the proximal femora. Images are reviewed in the axial, sagittal, and coronal planes. IV contrast was administered without complication. A dose lowering technique was utilized adhering to the principles of ALARA. CT DOSE: 288.35 mGy.cm FINDINGS: Lung bases: The tip of a central venous infusion port terminates at the cavoatrial junction. The heart is normal in size and without pericardial effusion. Emphysematous change is suspected. There is no airspace consolidation or pleural effusion. Dependent atelectasis is noted. Liver: The contrast-enhanced liver is normal in size and contour. The liver demonstrates diffusely diminished attenuation consistent with hepatic steatosis. There is minimal intrahepatic biliary ductal dilatation. The common bile duct stent is in place. Pneumobilia suggests patency of the stent. The hepatic veins and portal veins are patent. The low-attenuation right lobe lesion suggested previously is no longer identified. Gallbladder: The gallbladder is mildly distended. There is mucosal thickening and hyperemia. Gas is noted within the gallbladder lumen. Mild pericholecystic stranding is observed. Spleen: Normal in size and attenuation. Pancreas: Infiltrative low-attenuation lesion is again seen within the martinez creatic head on image #139. This measures up to 3.3 cm in diameter. The lesion demonstrates decreased attenuation as compared to prior studies. There is atrophy of the distal pancreas with marked dilatation of the upstream pancreatic duct. This measures up to 10 mm in diameter. There is marked attenuation of the superior mesenteric vein adjacent to the mass as seen on July 06 141. The splenic vein is patent. Adrenal glands: Unremarkable. Kidneys: The contrast enhanced kidneys are normal in size and without hydronephrosis. The kidneys enhance symmetrically. Abdominal vasculature: The abdominal aorta is normal in course and caliber noting mild atherosclerotic calcification. Bowel: Mild wall thickening and mucosal hyperemia is suggested in the left colon. There are also mildly thick-walled and hyperemic loops of small bowel in the left upper quadrant. No bowel obstruction is seen. There is no pneumatosis intestinalis. The appendix is well-visualized and normal. Peritoneum: There is a small volume of pelvic ascites. No intraperitoneal free air is seen. Lymphadenopathy: There are numerous prominent mesenteric lymph nodes which measure up to 6 mm in short axis. Pelvic viscera: Small foci of gas are present within the bladder lumen. The bladder is distended but otherwise normal in appearance. The uterus and Adnexa are normal as imaged. Skeletal structures: The skeletal structures are osteopenic. No lytic or blastic lesions are seen. Chronic deformity and postoperative change is noted in the right hip. IMPRESSION: 1. Again seen is an infiltrative low-attenuation mass lesion at the pancreatic head/neck junction. This is similar in size to prior examinations but demo nstrates diminished attenuation. This likely represents treatment response. 2. There is only minimal intrahepatic biliary ductal dilatation. A common bile duct stent is in place, and pneumobilia suggests patency of the stent. 3. The gallbladder wall is mildly thickened and hyperemic. There is gas within the gallbladder lumen, as well as mild pericholecystic stranding. These findings are nonspecific and may be related to the presence of an indwelling biliary stent. Ultrasound could be considered for further assessment if there is concern for acute cholecystitis. 4. There is wall thickening and hyperemia seen involving segments of the left colon as well as several small bowel loops in the left upper quadrant. The appearance suggest a nonspecific enterocolitis and clinical correlation will be required. 5. There is a small volume of pelvic ascites. 6. The low attenuation right lobe hepatic lesion seen on prior examinations is no longer identified. 7. There is marked attenuation of the superior mesenteric vein at the level of the pancreatic mass. The vessel remains patent. 8. Hepatic steatosis. 9. Gas within the bladder lumen may be related to instrumentation. Correlation with clinical findings and urinalysis will be required. 10. There are numerous prominent mesenteric lymph nodes, likely on a reactive basis. Electronically signed by: Latrell San M.D. 10/08/2019 2:46 PM SINGLE VIEW CHEST CLINICAL HISTORY: Sepsis. FINDINGS: An AP, portable, upright chest radiograph is compared to study dated 10/04/2019. A right subclavian central venous infusion port is unchanged in position. The cardiomediastinal silhouette is unremarkable. Chronic interstitial thickening is unchanged. The lungs and pleural spaces are clear. No pneumothorax is seen. The skeletal structures are osteopenic. The bony thorax is grossly intact. IMPRESSION: No active disease in the chest. ACT 112: Negative or not required by law. Electronically signed by: Latrell Sna M.D. 10/08/2019 3:03 PM ECG Data Attestation: I personally reviewed and interpreted this ECG as follows: Indication: + weakness Rate (beats per minute): 111 Rhythm: + sinus tachycardia ECG Intervals/blocks: + Normal QT-c (456) ECG Porter: + Normal ECG ST segments: no ST depression and no ST elevation Blood Pressure Blood Pressure Findings: Low blood pressure MDM Narrative Continuous Cardiac Monitoring: An order was placed for continuous cardiac monitoring. The monitor shows a rate of 100 with sinus tachycardia. This is a 64-year-old female who presents emergency department with hypotension and tachycardia. I will note that the patient does not have a fever here however she is neutropenic. The patient was given a normal saline bolus of 30 mL's per kilogram of fluid. Due to the complex nature of the patient's past med ical history I did discuss the case with the hospitalist service who did agree to admit the patient. Patient family are in agreement with the treatment plan. Impression & Plan Acute hypotension, Transaminitis, Elevated lactic acid level Discharge Plan Visit Data *Final* Discharge Date/Time: 10/08/19 18:48 Chief Complaint: Dehydration Stated Complaint: DEHYDRATED, STENT CHECK - DR REF ED Provider: Shawn Duarte Discharge Problem: Acute hypotension, Transaminitis, Elevated lactic acid level Patient Disposition: Admitted As Inpatient Discharge Instructions Interventions: ED Discharge Assessment Last Done: 10/08/19 18:48 The scribe's documentation has been prepared under my direction and personally reviewed by me in its entirety. I confirm that the note above accurately reflects all work, treatment, procedures, and medical decision making performed by me.
[2019-10-08] MEDS ORDERED: LIPASE PROTEASE AMYLASE PO SCH (19:18)
[2019-10-08] MEDS ORDERED: ONDANSETRON INJ 2 MG/ML 2 ML VIAL ONE (19:22)
[2019-10-08] MEDS ORDERED: POTASSIUM PHOSPHATE 9 MMOL in SODIUM CHLORIDE 0.9% 250 ML IV ONE (19:45)
[2019-10-08] MEDS: SODIUM CHLORIDE 0.9% 1000ML 1,000 ML IV SCH (20:08)
[2019-10-08] MEDS ORDERED: PANTOprazole 80 MG in DEXTROSE 5% 100 ML IV SCH (20:15)
--- NOTE | 2019-10-08 20:24 | Pharmacy Report ---
Pharmacy Abx Initial Consult - Date of Service October 08, 2019 - Pharmacy Dosing Scope Date of Consult: 10/08/19 Consultation requested by: MARIBEL Wolfe Pharmacy is consulted to initiate Vancomycin and Zosyn IV dosing therapy, order appropriate labs and adjust drug dose/frequency. - Subjective The patient is a 64 year old F admitted on 10/08/19 15:34. - Objective Height: 5 ft 8 in Weight: 58 kg Vital Signs (Past 12hrs): Vital Signs Temp Pulse Resp BP Pulse Ox 10/08/19 18:30 96 H 21 117/59 L 98 10/08/19 18:01 92 H 16 98 10/08/19 18:00 94 H 17 110/62 98 10/08/19 17:31 90 16 99 10/08/19 17:30 92 H 18 111/61 98 10/08/19 17:00 87 17 113/63 99 10/08/19 16:30 92 H 13 107/65 99 10/08/19 16:16 89 14 110/63 99 10/08/19 15:30 87 16 97 10/08/19 15:00 93 H 15 99 10/08/19 14:30 104 H 15 10/08/19 13:40 111 H 20 99 10/08/19 13:30 109 H 18 97 10/08/19 13:19 114 H 16 113/93 99 10/08/19 13:12 36.8 C 122 H 20 79/44 L 99 Lab Results (24hrs): Laboratory Tests (24 Hours) 10/08/19 10/08/19 10/08/19 13:40 13:40 13:40 WBC 0.32 L* Neut # (Auto) Cancelled Creatinine 0.78 Est Cr Clr Drug Dosing 66.7 Total Creatine Kinase 17 L Procalcitonin 0.57 H Micro Results: 10/08/19 13:57 Aerobic Blood Culture - Pending Blood Anaerobic Blood Culture - Pending 10/08/19 13:40 Aerobic Blood Culture - Pending Blood Anaerobic Blood Culture - Pending - Risk Factors for Resistance History of pancreatic cancer, on FOLFIRINOX regimen with Neulasta, last treatment was infused 10/01 through 10/03. - Assessment & Plan Assessment * 64 year old F who presented to [facility] on 10/08/19 with with reports of nausea, vomiting, abdominal pain * Hx of pancreatic cancer * Labs obtained earlier today at oncologist's office today showing pancytopenia and transaminitis * Started on vanc/zosyn empirically * BCx collected and pending Plan Vancomycin IV * Estimated PK Parameters: Vd 0.7 L/kg, Brandon 0.055 hr-1, t1/2 ~13 hr * Loading dose: 1250 mg (~22 mg/kg) * Maintenance dose: 1000 mg IV (17 mg/kg) every 16 hours * Goal trough level: 15 to 20 mcg/mL * Trough will be ordered prior to 3rd or 4th dose if medication is continued Piperacillin/tazobactam * 4.5 g bolus administered over 30 minutes, then 3.375 g IV extended infusion every 8 hours for CrCl greater than 20 mL/min Pharmacy will continue to follow and will adjust dose/frequency as necessary. Thank you.
[2019-10-08 21:30] LABS: Hematocrit (blood only) 25.7 % (37-47); Hemoglobin 8.7 g/dL (12.0-16.0)
[2019-10-08] MEDS ORDERED: SODIUM CHLORIDE 0.9% 250 ML IV PRN (21:38)
[2019-10-08] MEDS: PANTOprazole 40 MG in DEXTROSE 5% 100 ML IV SCH (21:54)
--- NOTE | 2019-10-08 22:41 | Ultrasound Report ---
ABDOMINAL ULTRASOUND, RIGHT UPPER QUADRANT HISTORY: Pancreatic cancer. Mid abdominal pain.. COMPARISON: Abdomen and pelvis CT 10/08/2019. FINDINGS: Pancreas: Obscured by overlying bowel gas. Liver: The liver is echogenic consistent with fatty change. The main portal vein is patent. Gallbladder: Gallbladder wall is borderline thickened at 3 mm. There is gas within the gallbladder peter men accounts for the shadowing. This is consistent with the patient's known pneumobilia. Negative son ographic Hayes sign. A few small gallstones/sludge. CBD: 2 mm. Right kidney: No hydronephrosis. IMPRESSION: 1. The pancreas is obscured by overlying bowel gas. 2. Hepatic steatosis. 3. Borderline gallbladder wall thickening with a few tiny stones and sludge. There is evidence for pn eumobilia. The technologist reported a negative sonographic Hayes sign. Therefore, these findings ar e less likely to represent acute cholecystitis. ACT 112: Negative or not required by law. Electronically signed by: Robbi Pereyra M.D. 10/08/2019 10:40 PM
[2019-10-08] MEDS: PIPERACILLIN/TAZOBACTAM 3.375 GM in DEXTROSE 5% 100 ML IV SCH (23:10)
[2019-10-08] MEDS ORDERED: ACETAMINOPHEN 325 MG TAB PO STA (23:57)
[2019-10-09 02:30] LABS: Hematocrit (blood only) 24.5 % (37-47); Hemoglobin 8.4 g/dL (12.0-16.0)
[2019-10-09 03:06] LABS: Albumin Globulin Ratio 0.8 (0.9-2); Albumin Level 2.1 gm/dl (3.4-5.0); BUN Creatinine Ratio 17.1 (10-20); Bilirubin,Total 2.3 mg/dl (0.2-1); Est GFR (African American) 114.2; Est GFR (Non-African American) 98.5; Globulin 2.5 gm/dl (2.5-4.0); Magnesium 2.1 mg/dl (1.8-2.4); Phosphorus 1.6 mg/dl (2.5-4.9); Potassium 3.7 mmol/L (3.5-5.1); Total Protein 4.6 gm/dl (6.4-8.2)
[2019-10-09 03:08] LABS: Appearance Urine Clear (Clear); Bacteria Urine Automated 1+ (Negative); Blood Urine 2+ (Negative); Color Urine Dark Yellow; Glucose Urine UA 1+ (Negative); Ketones Urine Trace (Negative); Leukocyte Esterase Urine 1+ (Negative); Nitrite Urine Negative (Negative); Protein Urine Trace (Negative); Specific Gravity Urine 1.038 (1.000-1.030); Urobilinogen Urine Negative (Negative)
[2019-10-09 03:14] LABS: Bilirubin Urine Negative (Negative); Ictotest Urine Negative (Negative)
[2019-10-09] MEDS: PANTOprazole 40 MG in DEXTROSE 5% 100 ML IV SCH ×4 (04:09→20:03)
[2019-10-09] MEDS: SODIUM CHLORIDE 0.9% 1000ML 1,000 ML IV SCH ×3 (04:09→17:53)
[2019-10-09] MEDS: VANCOMYCIN HCL 1,000 MG in SODIUM CHLORIDE 0.9% 250 ML IV SCH ×2 (07:52→23:27)
[2019-10-09] MEDS: PIPERACILLIN/TAZOBACTAM 3.375 GM in DEXTROSE 5% 100 ML IV SCH ×2 (07:54→17:45)
[2019-10-09] MEDS: PANCREAZE (LIPASE 10,500U) CAP PO SCH ×3 (07:55→15:59)
[2019-10-09 08:27] LABS: Hematocrit (blood only) 22.7 % (37-47); Hemoglobin 7.8 g/dL (12.0-16.0); Mean Corpuscular Hemoglobin 31.8 pg (25-34); Mean Corpuscular Hgb Conc 34.4 g/dL (32-36); Mean Corpuscular Volume 92.7 fL (80-100); Platelet Count 10 K/uL (130-400); RDW Coefficient of Variation 15.5 % (11.5-14.5); RDW Standard Deviation 52.6 fL (36.4-46.3); Red Blood Count 2.45 M/uL (4.2-5.4); White Blood Count 0.13 K/uL (4.8-10.8)
[2019-10-09 08:29] LABS: Albumin Level 1.9 gm/dl (3.4-5.0); BUN Creatinine Ratio 17.9 (10-20); Calcium 7.1 mg/dl (8.5-10.1); Creatinine Clr Calc Pharmacy 96.7 ml/min; Est GFR (African American) 114.9; Est GFR (Non-African American) 99.1; Magnesium 1.9 mg/dl (1.8-2.4); Potassium 3.3 mmol/L (3.5-5.1)
[2019-10-09 08:32] LABS: Albumin Globulin Ratio 0.8 (0.9-2); Bilirubin,Total 2.3 mg/dl (0.2-1); Globulin 2.4 gm/dl (2.5-4.0); Total Protein 4.3 gm/dl (6.4-8.2)
[2019-10-09] MEDS ORDERED: PANTOprazole 40 MG TAB PO SCH (09:00)
[2019-10-09] MEDS ORDERED: Nursing to Pharmacy Communication ONE ×2 (11:54→13:38)
--- NOTE | 2019-10-09 12:06 | Gastrointestinal Consultation ---
Date of Consultation October 09, 2019 Assessment & Plan (1) Pancreatic cancer: Present on Admission?: Yes (2) Transaminitis: Her elevated T Bili is concerning for an occluded biliary stent, however. This, along with the elevated transaminases (fairly stable from the past few weeks) could, however, be secondary to the chemotherapy. Vomiting may also be secondary to chemotherapy. Due to neutropenia, agree with empiric coverage of cholangitis. We are hesitant to arrange ERCP due to increased risk of infection with neutropenia and increased risk of bleeding with thrombocytopenia. Dr. Bernabe and I have discussed this case with Dr. Mccarthy who placed the metal biliary stent in Aug 2019 and he is reviewing/following along. Today, would defer ERCP but we will continue to follow pt and reassess daily. Please continue to follow blood indices and LFT with direct bili every morning. Appreciate primary hospitalists management of antiemetics - vomiting seems to be decreasing in frequency and pt tells me she has minimal nausea between the vomiting episodes. Present on Admission?: Yes (3) Hematemesis: Two episodes of hematemesis last evening with drop in Hb fro 10 to 7. 8 is certainly concerning. Most likely this represents gastritis and agree with tx with Protonix drip. Due to neutropenia and thrombocytopenia, would defer EGD today but continue Protonix drip and will watch pt very carefully. If further gross GI bleeding or further drop in Hb/Hct will reconsider EGD. Present on Admission?: No Supervising Physician Co-Signing Physician Notes Late entry: Patient was seen and examined with MARIBEL Chicas on 10/08. Her note reflects our findings and plan. Case reviewed with radiology and regarding the elevation in the bili. Panc CA s/p stenting, most recent 08/28. Imaging x 2 shows pneumobilia and metal stent in place. Pancytopenic. No role for urgent ERCP as stent appears to be functioning and not blocked based on imaging. Agree with abx given immunocompromised status. Watch LFTs daily. History of Present Illness Reason for Consultation: Elevated LFTs Requesting Physician: Alyssa Maxwell NP Hospitalist/ Data Attending Physician: Marco A Dawson MD History of Present Illness Ms. Niharika Swartz is a 64 yr old female pt of Dr. 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 She is known to GI because she underwent ERCP with stent placement on 07/04/19, then repeat ERCP for stent change, (metal) on 08/28/19. She is currently receiving neoadjuvant chemotherapy with FOLFIRINOX at [facility] in another clinical trial, having received 4 cycles, most recently , being SC'ed on 10/03 from . She presented to [facility] on for Neupogen and was admitted here on that day for a near syncopal episode. She had returned home on 10/05. Unfortunately, the next day, Friday 10/06, she developed vomiting. Because she has not been able to hold down solids or liquids, she returned to [facility] and was admitted yesterday. On arrival, T Bili was elevated at 2.3 and today is the same. A review of records shows that T Bili was normal earlier this week. On arrival, transaminases and Alk Phos are elevated (AST 76, ALT 124, Alk Phos 188) but those are similar to her baseline. D Bili has not yet been checked during this admission. CT and US with small gallbladder stones and with borderline thickened gallbladder wall. There appears to be pneumobilia and the stent is in the bile duct. Of concern is that the pt is neutropenic WBC at 0.13 and thrombocytopenic at 10. She also vomited bright red blood twice last evening, about 1/2 cup the first time, then a very small amt the second time. She has anemia with Hb 10 on arrival, 7.8 today. Allergies Allergy/AdvReac Type Severity Reaction Status Date / Time codeine Allergy Unknown Unverified 10/08/19 14:15 Home Medications Home Medications Medication Instructions Recorded Confirmed Type docusate sodium [Colace] 100 mg PO BID 08/25/19 10/08/19 History oxycodone [OxyContin] 20 mg PO Q12H PRN 08/25/19 10/08/19 History senna 8.6 mg PO HS PRN 08/25/19 10/08/19 History Neulasta 0 mg SUBCUT UD 10/04/19 10/08/19 History Prilosec OTC 20 mg PO DAILY 10/04/19 10/08/19 History loratadine [Claritin] 10 mg PO DAILY 10/04/19 10/08/19 History [id number] [Creon] 1 cap PO TIDM 10/08/19 10/08/19 History ondansetron HCl [Zofran] 8 mg PO Q6H PRN 10/08/19 10/08/19 History prochlorperazine maleate 5 mg PO BID PRN 10/08/19 10/08/19 History [Compazine] simethicone 125 mg PO BID PRN 10/08/19 10/08/19 History Patient History Medical History Pancreatic cancer Surgical History No pertinent past surgical history Family History Other No pertinent family history Social History Preferred Language: Persian Communication Ability: Effective 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 Eyes: No eye redness, or pain, no recent vision changes Resp: No SOB, no cough Cardio: No palpitations/irregular beats, no chest pain GI: mid abdomen pain/tenderness : Denies pain on urination Skin: No jaundice, itching or new rashes Physical Exam Constitutional: well developed, + ill appearing and + thin Eyes: PERRL, conjunctivae normal, anicteric sclerae ENMT: external ear and nose normal, oropharynx normal Neck: trachea midline, no thyromegaly Respiratory: normal respiratory effort, lungs clear to auscultation Cardiovascular: RRR, no murmur, no edema Gastrointestinal (Abdomen): Inspection/Auscultation: abdomen normal to inspection; abdomen not distended Percussion/Palpation: + abdomen tender (periumbilical and left mid abdomen area) and abdomen soft Skin: no rashes, warm and dry Neurologic: PERRL, EOMI, accommodation nl, no face palsy, no dysarthria Psychiatric: Orientation: alert and oriented x 3 mood quiet but no suggestion of depression or anxious state Lymphatic: no cervical or axillary lymphadenopathy Results & Data ([facility]) Vital Signs (Past 12 Hours) Vital Signs Temp Pulse Pulse Resp BP Pulse Ox 10/09/19 11:41 37.9 C H 83 18 107/68 98 10/09/19 10:21 95 H 10/09/19 07:48 37.8 C H 98 H 20 114/70 98 10/09/19 03:00 38.8 C H 100 H 16 128/75 98 10/09/19 01:09 91 H Laboratory Results WBC 0.13, Hb 7.8, Hct 22, Plt 10, INR 1.3 Diagnostic Findings US 10/08/19: 1. The pancreas is obscured by overlying bowel gas. 2. Hepatic steatosis. 3. Borderline gallbladder wall thickening with a few tiny stones and sludge. There is evidence for pneumobilia. The technologist reported a negative sonographic Hayes sign. Therefore, these findings are less likely to represent acute cholecystitis. CT abd/pelvis 10/08/19: 1. Again seen is an infiltrative low-attenuation mass lesion at the pancreatic head/neck junction. This is similar in size to prior examinations but demonstrates diminished attenuation. This likely represents treatment response. 2. There is only minimal intrahepatic biliary ductal dilatation. A common bile duct stent is in place, and pneumobilia suggests patency of the stent. 3. The gallbladder wall is mildly thickened and hyperemic. There is gas within the gallbladder lumen, as well as mild pericholecystic stranding. These findings are nonspecific and may be related to the presence of an indwelling biliary stent. Ultrasound could be considered for further assessment if there is concern for acute cholecystitis. 4. There is wall thickening and hyperemia seen involving segments of the left colon as well as several small bowel loops in the left upper quadrant. The appearance suggest a nonspecific enterocolitis and clinical correlation will be required. 5. There is a small volume of pelvic ascites. 6. The low attenuation right lobe hepatic lesion seen on prior examinations is no longer identified. 7. There is marked attenuation of the superior mesenteric vein at the level of the pancreatic mass. The vessel remains patent. 8. Hepatic steatosis. 9. Gas within the bladder lumen may be related to instrumentation. Correlation with clinical findings and urinalysis will be required. 10. There are numerous prominent mesenteric lymph nodes, likely on a reactive basis.
[2019-10-09] MEDS ORDERED: SODIUM CHLORIDE 0.9% 250 ML IV PRN (12:48)
--- NOTE | 2019-10-09 12:48 | Hospitalist Progress Note ---
Date of Service October 09, 2019 Assessment & Plan (1) Neutropenic fever: Neutropenic fever associated with chemotherapy. Source uncertain. No cough or infiltrates on chest x-ray. No urinary symptoms. UA was negative on . Repeat UA pending. Possible biliary source as discussed below. Having loose stools. Possible colitis noted on CT scan. Stool negative for C. difficile. Check stools for routine enteric pathogens. Continue intravenous vancomycin and piperacillin/tazobactam. (2) Elevated LFTs: LFTs elevated as noted above. CT demonstrated mild thickening of gallbladder wall, gas within the gallbladder lumen, mild pericholecystic stranding. Ultrasound demonstrated borderline gallbladder wall thickening with a few tiny stones and sludge, pneumobilia. Status post ERCP with stent placement on 07/04/2019 and then repeat ERCP for stent change on 08/28/2019. GI consulted. Repeat ERCP not recommended at this time. Continue antibiotics for possible cholecystitis or cholangitis. (3) Acute upper GI bleed: Hematemesis with moderate amounts of gross blood. Receiving IV pantoprazole. Hemoglobin falling as discussed below. Transfuse as necessary to maintain adequate H&H; target hemoglobin at least greater than 8. GI consulted. (4) Anemia: Hemoglobin at time of admission 10.7 and is fallen to 7.8 by this morning. Anemia probably secondary to combination of chemotherapy as well as acute blood loss anemia secondary to upper GI bleed. Transfuse to maintain hemoglobin at least greater than 8. (5) Neutropenia: Received Neulasta prior to admission. White count at time of admission was 320. White count this morning 130. Monitor WBC with differential. (6) Thrombocytopenia: Platelet count at time of admission 34,000. Platelet count this morning = 10,000. Experiencing upper GI bleeding. Transfuse platelets as necessary. (7) Pancreatic cancer: Per Hematology/Oncology. (8) DVT prophylaxis: No anticoagulants secondary to upper GI bleeding and thrombocytopenia. SCDs. Ambulate. (9) Discharge planning issues: Discharge disposition to be determined. Local Medical Oncology follow-up with Dr. Ortiz Torres. Also followed by Medical Oncology at [facility]. Admission and Anticipated Discharge Date Admission Date: October 08, 2019 Subjective Recheck for neutropenic fever and other problems. Patient seen in their room around 1220. Family visiting. Tired. Febrile this morning. Nausea and vomiting with some gross blood (moderate amount). Frequent loose stools without melena or hematochezia. Mild abdominal discomfort. Review of Systems: Constitutional- as noted above. Cardiac- no chest pain. Pulmonary- no cough or SOB. GI- as noted above. - no urinary symptoms. Otherwise, as noted above. Physical Exam Constitutional: + ill appearing; no acute distress ENMT: Mouth: no oral mucosal abnormality and no tongue abnormality Respiratory: no respiratory distress Auscultation: lungs clear to auscultation bilaterally Cardiovascular: Rate/Rhythm: regular rate and regular rhythm Heart Sounds: no gallop Vessels: no JVD Extremities: no calf tenderness and no edema Gastrointestinal (Abdomen): Inspection/Auscultation: normal bowel sounds; abdomen not distended Percussion/Palpation: + abdomen tender (mild-moderate tenderness RUQ and left-side of abdomen) and abdomen soft; no guarding Musculoskeletal: Extremities: no cyanosis Skin: no rashes, warm and dry Psychiatric: Orientation: alert and oriented x 3 Results & Data ([facility]) Vital Signs (Past 12 Hours) Vital Signs Temp Pulse Pulse Resp BP Pulse Ox 10/09/19 11:41 37.9 C H 83 18 107/68 98 10/09/19 10:21 95 H 10/09/19 07:48 37.8 C H 98 H 20 114/70 98 10/09/19 03:00 38.8 C H 100 H 16 128/75 98 10/09/19 01:09 91 H Laboratory Results Hemoglobin 7.8, white count 130, platelet count 10,000. Sodium 133, potassium 3.3, chloride 105, CO2 21, BUN 10, creatinine 0.55, glucose 125. Total bilirubin 2.3, direct bilirubin 1.6, AST 71, ALT 126, alkaline phosphatase 164. Blood cultures drawn yesterday negative so far.
[2019-10-09] MEDS ORDERED: ACETAMINOPHEN 325 MG TAB PO PRN (15:36)
[2019-10-09] MEDS: ONDANSETRON INJ 2 MG/ML 2 ML VIAL IV PRN ×2 (16:23→23:22)
--- NOTE | 2019-10-09 18:03 | Electrocardiogram Report ---
Test Reason : Blood Pressure : / mmHG Vent. Rate : 098 BPM Atrial Rate : 098 BPM P-R Int : 120 ms QRS Dur : 094 ms QT Int : 350 ms P-R-T Axes : 055 066 022 degrees QTc Int : 446 ms Normal sinus rhythm Incomplete right bundle branch block T wave abnormality, consider anterior ischemia Abnormal ECG When compared with ECG of 08-OCT-2019 13:40, No significant change was found Confirmed by Glen Aldana ([id number]) on 10/09/2019 6:03:23 PM Referred By: REFERRED SELF Confirmed By:Glen Aldana
[2019-10-09 22:17] LABS: Hematocrit (blood only) 24.8 % (37-47); Hemoglobin 8.8 g/dL (12.0-16.0); Mean Corpuscular Hemoglobin 32.2 pg (25-34); Mean Corpuscular Hgb Conc 35.5 g/dL (32-36); Mean Corpuscular Volume 90.8 fL (80-100); Mean Platelet Volume 9.3 fL (7.4-10.4); Platelet Count 20 K/uL (130-400); RDW Standard Deviation 49.2 fL (36.4-46.3); Red Blood Count 2.73 M/uL (4.2-5.4); White Blood Count 0.23 K/uL (4.8-10.8)
[2019-10-09 22:19] LABS: BUN Creatinine Ratio 16.5 (10-20); Calcium 7.3 mg/dl (8.5-10.1); Creatinine Clr Calc Pharmacy 93.3 ml/min; Est GFR (African American) 113.5; Potassium 3.1 mmol/L (3.5-5.1)
[2019-10-09] MEDS: D5NSS + 20MEQ KCL 20 MEQ/1,000 ML BAG IV SCH (23:04)
[2019-10-10] MEDS: PANTOprazole 40 MG in DEXTROSE 5% 100 ML IV SCH ×5 (00:29→22:05)
[2019-10-10] MEDS: PIPERACILLIN/TAZOBACTAM 3.375 GM in DEXTROSE 5% 100 ML IV SCH ×3 (03:29→20:30)
[2019-10-10] MEDS: D5NSS + 20MEQ KCL 20 MEQ/1,000 ML BAG IV SCH ×2 (05:31→14:40)
[2019-10-10 06:51] LABS: Albumin Level 1.7 gm/dl (3.4-5.0); BUN Creatinine Ratio 11.7 (10-20); Bilirubin Direct 1.4 mg/dl (0-0.2); Est GFR (African American) 108.7; Est GFR (Non-African American) 93.8; Potassium 3.1 mmol/L (3.5-5.1)
[2019-10-10 06:54] LABS: Albumin Globulin Ratio 0.6 (0.9-2); Bilirubin,Total 2.1 mg/dl (0.2-1); Globulin 2.7 gm/dl (2.5-4.0); Total Protein 4.4 gm/dl (6.4-8.2)
[2019-10-10 06:56] LABS: Hematocrit (blood only) 24.1 % (37-47); Hemoglobin 8.4 g/dL (12.0-16.0); Mean Corpuscular Hemoglobin 31.3 pg (25-34); Mean Corpuscular Hgb Conc 34.9 g/dL (32-36); Mean Corpuscular Volume 89.9 fL (80-100); Mean Platelet Volume 10.9 fL (7.4-10.4); Platelet Count 15 K/uL (130-400); RDW Coefficient of Variation 15.1 % (11.5-14.5); RDW Standard Deviation 48.7 fL (36.4-46.3); Red Blood Count 2.68 M/uL (4.2-5.4); White Blood Count 0.12 K/uL (4.8-10.8)
[2019-10-10 07:02] LABS: Platelet Estimate SIGNIFIC DECREASED (Normal)
[2019-10-10] MEDS ORDERED: ACETAMINOPHEN 325 MG TAB PO ONE (07:07)
[2019-10-10] MEDS: PANCREAZE (LIPASE 10,500U) CAP PO SCH ×3 (07:33→17:13)
[2019-10-10] MEDS: POTASSIUM CHLORIDE / WTR 10 MEQ/100 ML PLCT IV SCH ×4 (07:40→20:30)
--- NOTE | 2019-10-10 09:41 | Gastroenterology Progress Note ---
Date of Service October 10, 2019 Assessment & Plan (1) Pancreatic cancer: (2) Transaminitis: Her elevated T Bili is concerning for an occluded biliary stent, however. This, along with the elevated transaminases (fairly stable from the past few weeks) could, however, be secondary to the chemotherapy. Vomiting may also be secondary to chemotherapy. LFTs are improving today and due to neutropenia and thrombocytopenia risks of complication, and lack of clear evidence of an occluded stent, ERCP would likely outweigh benefits at this point. (3) Hematemesis: Two episodes of hematemesis 2 days ago with mild drop in Hb. Would recommend a full 3 days on the PPI drip then change to po BID for a month then daily. Would defer EGD at this time (neutropenia and thrombocytopenia). Admission and Anticipated Discharge Date Admission Date: October 08, 2019 Subjective Ms. Niharika Swartz is a 64 yr old female pt with pancreatic cancer on chemo, admitted with nausea, vomiting, with neutropenic fever and thrombocytopenia. LFTs elevated, improved today. WBC Pt started with diarrhea, loose to liquid, incontinent, 4 on night worker. Pt more awake and alert than yesterday, says she feels a little better. Vomited once on night worker. Emesis and BMs are green in color. Describes minimal ongoing nausea but feels sudden severe diffuse abdominal cramping then vomits. Physical Exam Constitutional: well developed, + ill appearing and + thin Eyes: PERRL, conjunctivae normal, anicteric sclerae ENMT: external ear and nose normal, oropharynx normal Neck: trachea midline, no thyromegaly Respiratory: normal respiratory effort, lungs clear to auscultation Cardiovascular: RRR, no murmur, no edema Gastrointestinal (Abdomen): Inspection/Auscultation: abdomen normal to inspection; abdomen not distended Percussion/Palpation: + abdomen tender (periumbilical and left mid abdomen area) and abdomen soft Skin: no rashes, warm and dry Neurologic: PERRL, EOMI, accommodation nl, no face palsy, no dysarthria Psychiatric: Orientation: alert and oriented x 3 Lymphatic: no cervical or axillary lymphadenopathy Results & Data ([facility]) Vital Signs (Past 12 Hours) Vital Signs Temp Pulse Pulse Resp BP BP Pulse Ox 10/10/19 08:32 37.9 C H 81 20 123/74 95 10/10/19 08:27 37.2 C 83 18 114/68 97 10/10/19 08:12 38 C H 76 18 120/68 97 10/10/19 07:56 37.7 C H 79 18 125/70 99 10/10/19 07:24 76 10/10/19 07:07 37.7 C H 80 16 117/68 97 10/09/19 23:59 81 10/09/19 23:34 37.2 C 82 18 118/70 95 Laboratory Results WBC 0.12, hemoglobin 8.4, hematocrit 24.1, platelets 15,000, sodium 134, potassium 3.1, BUN 8, creatinine 0.6, glucose 216 Direct bilirubin was 1.6 now 1.4, total bilirubin 2.3 ->2.1, AST 62->25, ALT 114 -> 88, Alk Phos 254 ->132. Diagnostic Findings CT with IV contrast 10/08/2019: 1. Again seen is an infiltrative low-attenuation mass lesion at the pancreatic head/neck junction. This is similar in size to prior examinations but demonstrates diminished attenuation. This likely represents treatment response. 2. There is only minimal intrahepatic biliary ductal dilatation. A common bile duct stent is in place, and pneumobilia suggests patency of the stent. 3. The gallbladder wall is mildly thickened and hyperemic. There is gas within the gallbladder lumen, as well as mild pericholecystic stranding. These findings are nonspecific and may be related to the presence of an indwelling biliary stent. Ultrasound could be considered for further assessment if there is concern for acute cholecystitis. 4. There is wall thickening and hyperemia seen involving segments of the left colon as well as several small bowel loops in the left upper quadrant. The appearance suggest a nonspecific enterocolitis and clinical correlation will be required. 5. There is a small volume of pelvic ascites. 6. The low attenuation right lobe hepatic lesion seen on prior examinations is no longer identified. 7. There is marked attenuation of the superior mesenteric vein at the level of the pancreatic mass. The vessel remains patent. 8. Hepatic steatosis. 9. Gas within the bladder lumen may be related to instrumentation. Correlation with clinical findings and urinalysis will be required. 10. There are numerous prominent mesenteric lymph nodes, likely on a reactive basis. US 10/08/19: 1. The pancreas is obscured by overlying bowel gas. 2. Hepatic steatosis. 3. Borderline gallbladder wall thickening with a few tiny stones and sludge. There is evidence for pneumobilia. The technologist reported a negative sonographic Hayes sign. Therefore, these findings are less likely to represent acute cholecystitis.
[2019-10-10] MEDS: SUCRALFATE 1 GM/10 ML UDC PO SCH ×3 (10:30→20:37)
[2019-10-10] MEDS: ONDANSETRON INJ 2 MG/ML 2 ML VIAL IV PRN ×2 (14:08→18:50)
[2019-10-10] MEDS: MoRPHine SULFATE 4 MG/ML 1 ML CARP\\VIAL IV PRN ×3 (14:41→23:52)
[2019-10-10] MEDS ORDERED: VANCOMYCIN TROUGH ONE (15:30)
--- NOTE | 2019-10-10 15:53 | Electrocardiogram Report ---
Test Reason : Blood Pressure : / mmHG Vent. Rate : 082 BPM Atrial Rate : 082 BPM P-R Int : 118 ms QRS Dur : 096 ms QT Int : 364 ms P-R-T Axes : 003 -15 015 degrees QTc Int : 425 ms Normal sinus rhythm RSR' or QR pattern in V1 suggests right ventricular conduction delay Borderline ECG When compared with ECG of 09-OCT-2019 06:55, Questionable change in QRS axis Nonspecific T wave abnormality has replaced inverted T waves in Anterior leads Confirmed by John Hathaway ([id number]) on 10/10/2019 3:53:43 PM Referred By: REFERRED SELF Confirmed By:John Hathaway
[2019-10-10 16:13] LABS: Potassium 3.1 mmol/L (3.5-5.1)
[2019-10-10] MEDS: VANCOMYCIN HCL 1,000 MG in SODIUM CHLORIDE 0.9% 250 ML IV SCH (16:30)
[2019-10-10 16:37] LABS: Hematocrit (blood only) 22.8 % (37-47); Mean Corpuscular Hemoglobin 31.4 pg (25-34); Mean Corpuscular Hgb Conc 35.1 g/dL (32-36); Mean Corpuscular Volume 89.4 fL (80-100); Mean Platelet Volume 10.5 fL (7.4-10.4); Platelet Count 28 K/uL (130-400); RDW Coefficient of Variation 15.2 % (11.5-14.5); RDW Standard Deviation 49.5 fL (36.4-46.3); Red Blood Count 2.55 M/uL (4.2-5.4)
--- NOTE | 2019-10-10 16:43 | Pharmacy Report ---
Pharmacy Abx Dose Short Note - Date of Service October 10, 2019 - Assessment & Plan Assessment 64 year old F receiving empiric vancomycin and Zosyn for treatment of neutropenic fever secondary to chemotherapy Day # 3 of antimicrobial therapy. Urine culture 10/09/19: gram negative bacilli Blood cultures 10/08/19: no growth at 48 hours Plan Vancomycin * Trough level of 5.3 mcg/mL is subtherapeutic * Change to 1250 mg IV every 12 hours * Goal trough level for febrile neutropenia : 15 to 20 mcg/mL * Trough level ordered for: 10/12/19 Zosyn * Continue current dose of 3.375 g IV q8h - appropriate based on BMI and renal function Pharmacy will continue to follow and will adjust dose/frequency as necessary. Thank you.
--- NOTE | 2019-10-10 16:49 | XRay Report ---
XR abdomen 2V w PA chest HISTORY: 64 years-old Female worsening abdominal pain acute generalized abdominal pain COMPARISON: Chest radiograph, CT abdomen and pelvis 10/08/2019 TECHNIQUE: AP portable view of the chest with supine view of the abdomen FINDINGS: Cardiomediastinal and hilar silhouettes are within normal limits. Right IJ [id number]-f-[id number] catheter is unchanged. No pneumothorax, pleural effusion or overt pulmonary edema. Minimal left basilar atelectas is. Bones appear grossly intact. No pneumatosis or pneumoperitoneum. Common bile duct stent redemonstrated. Bowel gas pattern is nonob structive. Pneumobilia. Air-filled mildly prominent loops of small bowel are seen within the left mid and central abdomen with air also noted within the large bowel. No urolith. Hardware of the right hi p. Degenerative changes of the spine. IMPRESSION: 1. No acute processes of the chest. 2. Common bile duct stent with pneumobilia compatible with stent patency. 3. No pneumatosis or pneumoperitoneum. 4. Air-filled prominent and mildly dilated loops of small bowel within the left midabdomen may reflec t focal ileus/enteritis considering the findings seen on recent CT abdomen and pelvis. Developing low -grade small bowel obstruction considered less likely. ACT 112: Negative or not required by law. The above report was generated using voice recognition software. It may contain grammatical, syntax o r spelling errors. Electronically signed by: Danny Roa M.D. 10/10/2019 4:47 PM
[2019-10-10] MEDS: VANCOMYCIN HCL 1,250 MG in SODIUM CHLORIDE 0.9% 250 ML IV SCH (17:09)
--- NOTE | 2019-10-10 23:26 | Hospitalist Progress Note ---
Date of Service October 10, 2019 Assessment & Plan (1) Neutropenic fever: Neutropenic fever associated with chemotherapy. Source uncertain. No cough or infiltrates on chest x-ray. No urinary symptoms. UA was negative on . Repeat UA pending. Possible biliary source as discussed below. Having loose stools. Possible colitis noted on CT scan. Stool negative for C. difficile. Check stools for routine enteric pathogens. Continue intravenous vancomycin and piperacillin/tazobactam. (2) Elevated LFTs: LFTs elevated as noted above. CT demonstrated mild thickening of gallbladder wall, gas within the gallbladder lumen, mild pericholecystic stranding. Ultrasound demonstrated borderline gallbladder wall thickening with a few tiny stones and sludge, pneumobilia. Status post ERCP with stent placement on 07/04/2019 and then repeat ERCP for stent change on 08/28/2019. GI consulted. Repeat ERCP not recommended at this time. Continue antibiotics for possible cholecystitis or cholangitis. (3) Acute upper GI bleed: Hematemesis with moderate amounts of gross blood. Receiving IV pantoprazole. Hemoglobin falling as discussed below. Transfuse as necessary to maintain adequate H&H; target hemoglobin at least greater than 8. GI consulted. (4) Anemia: Hemoglobin at time of admission 10.7 and fell as low as 7.8. Anemia probably secondary to combination of chemotherapy as well as acute blood loss anemia secondary to upper GI bleed. Received 1 unit of pRBC's. Hgb today = 8.4. Follow. Transfuse to maintain hemoglobin at least greater than 8. (5) Neutropenia: Received Neulasta prior to admission. White count at time of admission was 320. White count this morning 120. Monitor WBC with differential. (6) Thrombocytopenia: Platelet count at time of admission 34,000 and fell as low as 10,000. Received 1 bag pheresed platelets and platelet count ander to 20,000. Platelet count this morning = 15,000. Experienced upper GI bleeding. Transfuse platelets as necessary. (7) Pancreatic cancer: Per Hematology/Oncology. (8) DVT prophylaxis: No anticoagulants secondary to upper GI bleeding and thrombocytopenia. SCDs. Ambulate. (9) Discharge planning issues: Discharge disposition to be determined. Local Medical Oncology follow-up with Dr. Ortiz Torres. Also followed by Medical Oncology at [facility]. Admission and Anticipated Discharge Date Admission Date: October 08, 2019 Subjective Recheck for neutropenic fever and other problems. Patient seen in their room around 1430. Family visiting. Tired, but feels a little better. Intermittent fevers, but not as high. Nauseated. Small emesis without blood. Frequent loose stools without melena or hematochezia. Mild-moderate abdominal discomfort. Review of Systems: Constitutional- as noted above. Cardiac- no chest pain. Pulmonary- no cough or SOB. GI- as noted above. - no urinary symptoms. Otherwise, as noted above. Physical Exam Constitutional: + ill appearing; no acute distress ENMT: Mouth: no oral mucosal abnormality and no tongue abnormality Respiratory: no respiratory distress Auscultation: lungs clear to auscultation bilaterally Cardiovascular: Rate/Rhythm: regular rate and regular rhythm Heart Sounds: no gallop Vessels: no JVD Extremities: no calf tenderness and no edema Gastrointestinal (Abdomen): Inspection/Auscultation: normal bowel sounds; abdomen not distended Percussion/Palpation: + abdomen tender (mild-moderate tenderness RUQ and left-side of abdomen) and abdomen soft; no guarding Musculoskeletal: Extremities: no cyanosis Skin: no rashes, warm and dry Psychiatric: Orientation: alert and oriented x 3 Results & Data ([facility]) Vital Signs (Past 12 Hours) Vital Signs Temp Pulse Pulse Resp BP Pulse Ox 10/10/19 19:32 37.4 C 78 20 102/58 L 94 10/10/19 16:00 77 10/10/19 15:07 36.6 C 78 18 98/61 L 95 Laboratory Results Laboratory Results - last 24 hr 10/08/19 10/10/19 10/10/19 21:50 05:39 05:39 WBC 0.12 L* RBC 2.68 L Hgb 8.4 L Hct 24.1 L MCV 89.9 MCH 31.3 MCHC 34.9 RDW Std Deviation 48.7 H RDW Coeff of Rajesh 15.1 H Plt Count 15 L* MPV 10.9 H Immature Gran % (Auto) Cancelled Neut % (Auto) Cancelled Lymph % (Auto) Cancelled [place] % (Auto) Cancelled Eos % (Auto) Cancelled Baso % (Auto) Cancelled Immature Gran # (Auto) Cancelled Neut # (Auto) Cancelled Lymph # (Auto) Cancelled [place] # (Auto) Cancelled Eos # (Auto) Cancelled Baso # (Auto) Cancelled Absolute Nucleated RBC Nucleated RBC % (auto) Neutrophils % (Manual) Cancelled Band Neutrophils % Cancelled Lymphocytes % (Manual) Cancelled Prolymphocyte % Cancelled Reactive Lymphs % (Man) Cancelled Monocytes % (Manual) Cancelled Eosinophils % (Manual) Cancelled Basophils % (Manual) Cancelled Metamyelocytes % (Man) Cancelled Myelocytes % (Man) Cancelled Promyelocytes % (Man) Cancelled Blast Cells % (Manual) Cancelled Plasma Cell % (Manual) Cancelled Other Cells % Cancelled Nucleated RBC % Cancelled Neutrophils # (Manual) Cancelled Band Neutrophils # Cancelled Total Absolute Neuts Cancelled Lymphocytes # (Manual) Cancelled Prolymphocyte # Cancelled Reactive Lymphs # Cancelled Total Abs Lymphocytes Cancelled Monocytes # (Manual) Cancelled Eosinophils # (Manual) Cancelled Basophils # (Manual) Cancelled Metamyelocytes # (Man) Cancelled Myelocytes # (Manual) Cancelled Promyelocytes # (Man) Cancelled Blast Cells # (Man) Cancelled Plasma Cell # (Manual) Cancelled Other Cells # Cancelled Nucleated RBCs # (Man) Cancelled Hypersegmented Neuts Cancelled Hyposegmented Neuts Cancelled Hypogranular Neuts Cancelled Large Granular Lymphs Cancelled # Lrg Granular Lymphs Cancelled Hairy Cells Cancelled Smudge Cells Cancelled Toxic Granulation Cancelled Toxic Vacuolation Cancelled Dohle Bodies Cancelled Jarad Rods Cancelled Platelet Estimate SIGNIFIC DECREASED Hypogranular Platelets Cancelled Clumped Platelets Cancelled Giant Platelets Cancelled Platelet Satelliting Cancelled RBC Morphology Cancelled Polychromasia Cancelled Hypochromasia Cancelled Poikilocytosis Cancelled Basophilic Stippling Cancelled Anisocytosis Cancelled Microcytosis Cancelled Macrocytosis Cancelled Spherocytes Cancelled Pappenheimer Bodies Cancelled Sickle Cells Cancelled Target Cells Cancelled Tear Drop Cells Cancelled Ovalocytes Cancelled Stomatocytes Cancelled [place] Bodies Cancelled Echinocytes Cancelled Acanthocytes (Spur) Cancelled Rouleaux Cancelled RBC Agglutinates Cancelled Schistocytes Cancelled RBC Morph Comment Cancelled Sezary Cell Cancelled Sodium 134 L Potassium 3.1 L Chloride 106 Carbon Dioxide 23 Anion Gap 5.0 BUN 8 Creatinine 0.65 Est Cr Clr Drug Dosing 83.0 Est GFR ( Amer) 108.7 Est GFR (Non-Af Amer) 93.8 BUN/Creatinine Ratio 11.7 Glucose 216 H Calcium 7.0 L Total Bilirubin 2.1 H Direct Bilirubin 1.4 H AST 25 ALT 88 H Alkaline Phosphatase 132 H Total Protein 4.4 L Albumin 1.7 L Globulin 2.7 Albumin/Globulin Ratio 0.6 L Vancomycin Trough Blood Type AB Positive Antibody Screen NEGATIVE Crossmatch See Detail 10/10/19 10/10/19 10/10/19 15:47 15:48 15:48 WBC 0.10 L* RBC 2.55 L Hgb 8.0 L Hct 22.8 L MCV 89.4 MCH 31.4 MCHC 35.1 RDW Std Deviation 49.5 H RDW Coeff of Rajesh 15.2 H Plt Count 28 L* D MPV 10.5 H Immature Gran % (Auto) Neut % (Auto) Lymph % (Auto) [place] % (Auto) Eos % (Auto) Baso % (Auto) Immature Gran # (Auto) Neut # (Auto) Lymph # (Auto) [place] # (Auto) Eos # (Auto) Baso # (Auto) Absolute Nucleated RBC 0.10 H Nucleated RBC % (auto) 110.0 Neutrophils % (Manual) Band Neutrophils % Lymphocytes % (Manual) Prolymphocyte % Reactive Lymphs % (Man) Monocytes % (Manual) Eosinophils % (Manual) Basophils % (Manual) Metamyelocytes % (Man) Myelocytes % (Man) Promyelocytes % (Man) Blast Cells % (Manual) Plasma Cell % (Manual) Other Cells % Nucleated RBC % Neutrophils # (Manual) Band Neutrophils # Total Absolute Neuts Lymphocytes # (Manual) Prolymphocyte # Reactive Lymphs # Total Abs Lymphocytes Monocytes # (Manual) Eosinophils # (Manual) Basophils # (Manual) Metamyelocytes # (Man) Myelocytes # (Manual) Promyelocytes # (Man) Blast Cells # (Man) Plasma Cell # (Manual) Other Cells # Nucleated RBCs # (Man) Hypersegmented Neuts Hyposegmented Neuts Hypogranular Neuts Large Granular Lymphs # Lrg Granular Lymphs Hairy Cells Smudge Cells Toxic Granulation Toxic Vacuolation Dohle Bodies Jarad Rods Platelet Estimate Hypogranular Platelets Clumped Platelets Giant Platelets Platelet Satelliting RBC Morphology Polychromasia Hypochromasia Poikilocytosis Basophilic Stippling Anisocytosis Microcytosis Macrocytosis Spherocytes Pappenheimer Bodies Sickle Cells Target Cells Tear Drop Cells Ovalocytes Stomatocytes [place] Bodies Echinocytes Acanthocytes (Spur) Rouleaux RBC Agglutinates Schistocytes RBC Morph Comment Sezary Cell Sodium Potassium 3.1 L Chloride Carbon Dioxide Anion Gap BUN Creatinine Est Cr Clr Drug Dosing Est GFR ( Amer) Est GFR (Non-Af Amer) BUN/Creatinine Ratio Glucose 190 H Calcium Total Bilirubin Direct Bilirubin AST ALT Alkaline Phosphatase Total Protein Albumin Globulin Albumin/Globulin Ratio Vancomycin Trough 5.3 Blood Type Antibody Screen Crossmatch Microbiology 10/08/19 13:57 Blood Aerobic Blood Culture - Preliminary No growth in Aerobic bottle after 48 hours. 10/08/19 13:57 Blood Anaerobic Blood Culture - Preliminary No growth in Anaerobic bottle after 48 hours. 10/08/19 13:40 Blood Aerobic Blood Culture - Preliminary No growth in Aerobic bottle after 48 hours. 10/08/19 13:40 Blood Anaerobic Blood Culture - Preliminary No growth in Anaerobic bottle after 48 hours. 10/09/19 02:50 Urine,Clean Catch Urine Culture - Preliminary Gram negative bacilli
[2019-10-11] MEDS: PROMETHAZINE HCL 12.5 MG in SODIUM CHLORIDE 0.9% 50 ML IV PRN ×2 (00:02→17:49)
[2019-10-11] MEDS: POTASSIUM CHLORIDE / WTR 10 MEQ/100 ML PLCT IV SCH ×6 (00:43→23:31)
[2019-10-11] MEDS: PANTOprazole 40 MG in DEXTROSE 5% 100 ML IV SCH ×5 (01:54→19:41)
[2019-10-11] MEDS: MoRPHine SULFATE 4 MG/ML 1 ML CARP\\VIAL IV PRN ×3 (03:38→14:53)
[2019-10-11] MEDS: PIPERACILLIN/TAZOBACTAM 3.375 GM in DEXTROSE 5% 100 ML IV SCH ×3 (03:39→18:08)
[2019-10-11] MEDS: VANCOMYCIN HCL 1,250 MG in SODIUM CHLORIDE 0.9% 250 ML IV SCH ×2 (05:23→17:49)
[2019-10-11 06:36] LABS: Hematocrit (blood only) 25.4 % (37-47); Hemoglobin 8.9 g/dL (12.0-16.0); Mean Corpuscular Hemoglobin 31.9 pg (25-34); Mean Platelet Volume 10.8 fL (7.4-10.4); Platelet Count 25 K/uL (130-400); RDW Coefficient of Variation 15.2 % (11.5-14.5); RDW Standard Deviation 50.5 fL (36.4-46.3); Red Blood Count 2.79 M/uL (4.2-5.4); White Blood Count 0.44 K/uL (4.8-10.8)
[2019-10-11] MEDS: D5NSS + 20MEQ KCL 20 MEQ/1,000 ML BAG IV SCH (06:57)
[2019-10-11 07:00] LABS: Albumin Level 1.7 gm/dl (3.4-5.0); BUN Creatinine Ratio 12.2 (10-20); Bilirubin Direct 1.2 mg/dl (0-0.2); Calcium 7.7 mg/dl (8.5-10.1); Creatinine Clr Calc Pharmacy 66.2 ml/min; Est GFR (African American) 86.4; Est GFR (Non-African American) 74.5; Magnesium 1.7 mg/dl (1.8-2.4); Potassium 3.1 mmol/L (3.5-5.1)
[2019-10-11 07:18] LABS: Albumin Globulin Ratio 0.6 (0.9-2); Bilirubin,Total 1.6 mg/dl (0.2-1); Phosphorus 1.2 mg/dl (2.5-4.9); Total Protein 4.7 gm/dl (6.4-8.2)
[2019-10-11] MEDS ORDERED: POTASSIUM PHOS 3 MMOL/1 ML INFUSION IV ONE ×2 (07:27→21:14)
[2019-10-11] MEDS ORDERED: MAGNESIUM SULFATE / D5W 1 GM/100 ML BAG IV ONE (07:30)
[2019-10-11] MEDS: SUCRALFATE 1 GM/10 ML UDC PO SCH ×4 (07:46→19:41)
[2019-10-11] MEDS ORDERED: POTASSIUM PHOSPHATE 21 MMOL in SODIUM CHLORIDE 0.9% 500 ML IV ONE (08:00)
[2019-10-11] MEDS: SIMETHICONE 80 MG CHEW PO PRN ×2 (10:03→16:28)
--- NOTE | 2019-10-11 12:04 | Gastroenterology Progress Note ---
Date of Service October 11, 2019 Assessment & Plan Admission and Anticipated Discharge Date Admission Date: October 08, 2019 Subjective Bili improved, hgb stable. Will cont to follow labs. Results & Data ([facility]) Vital Signs (Past 12 Hours) Vital Signs Temp Pulse Pulse Resp BP Pulse Ox 10/11/19 07:59 37.1 C 98 H 19 113/72 96 10/11/19 07:24 87 10/11/19 04:04 37.0 C 88 20 101/61 96 10/11/19 01:37 85 10/11/19 00:31 37.2 C 89 20 105/59 L 96
[2019-10-11] MEDS: HEPARIN 100 UNIT/ML 5ML FLUSH FLUSH PRN (14:53)
--- NOTE | 2019-10-11 20:20 | Hospitalist Progress Note ---
Date of Service October 11, 2019 Assessment & Plan (1) Neutropenic fever: Neutropenic fever associated with chemotherapy. Source uncertain. No cough or infiltrates on chest x-ray. UA showed leukocyte esterase, few WBC's, + bacteria. Urine culture growing Klebsiella pneumoniae. Possible biliary source as discussed below. Having loose stools. Possible colitis noted on CT scan. Stool negative for C. difficile. Checking stools for routine enteric pathogens. Continue intravenous vancomycin and piperacillin/tazobactam. (2) Urinary tract infection: UA showed leukocyte esterase, few WBC's, + bacteria. Urine culture growing Klebsiella pneumoniae. UTI- (present on admission) (3) Elevated LFTs: LFTs elevated. CT demonstrated mild thickening of gallbladder wall, gas within the gallbladder lumen, mild pericholecystic stranding. Ultrasound demonstrated borderline gallbladder wall thickening with a few tiny stones and sludge, pneumobilia. Status post ERCP with stent placement on 07/04/2019 and then repeat ERCP for stent change on 08/28/2019. GI consulted. Repeat ERCP not recommended at this time. Continue antibiotics for possible cholecystitis or cholangitis. (4) Acute upper GI bleed: Hematemesis with moderate amounts of gross blood. Receiving IV pantoprazole. Hemoglobin falling as discussed below. Transfuse as necessary to maintain adequate H&H; target hemoglobin at least greater than 8. GI consulted. (5) Anemia: Hemoglobin at time of admission 10.7 and fell as low as 7.8. Anemia probably secondary to combination of chemotherapy as well as acute blood loss anemia secondary to upper GI bleed. Received 1 unit of pRBC's. Hgb today = 8.9. Follow. Transfuse to maintain hemoglobin at least greater than 8. (6) Neutropenia: Received Neulasta prior to admission. White count at time of admission was 320. White count this morning 400. Monitor WBC with differential. (7) Thrombocytopenia: Platelet count at time of admission 34,000 and fell as low as 10,000. Received 1 bag pheresed platelets and platelet count ander to 20,000. Platelet count this morning = 25,000. Experienced upper GI bleeding. Transfuse platelets as necessary. (8) Pancreatic cancer: Per Hematology/Oncology. (9) Hypokalemia: Serum potassium as low as 3.1. Replace. Follow. (10) Hypomagnesemia: Magnesium 1.7. Replace. Follow. (11) Hypophosphatemia: Serum phosphorus 1.2. Replace. Follow. (12) Severe malnutrition: 15 pound weight loss since August. Underlying malignancy. Poor p.o. intake due to GI symptoms. Boost Breeze ordered. Seen by Nutrition. Severe protein calorie malnutrition. Continue diet as tolerated and supplements. (13) DVT prophylaxis: No anticoagulants secondary to upper GI bleeding and thrombocytopenia. SCDs. Ambulate. (14) Discharge planning issues: Discharge disposition to be determined. Local Medical Oncology follow-up with Dr. Ortiz Torres. Also followed by Medical Oncology at [facility]. Admission and Anticipated Discharge Date Admission Date: October 08, 2019 Subjective Recheck for neutropenic fever and other problems. Patient seen in their room around 1540. Family visiting. Feels a little better. Temp down. No emesis since yesterday, but still nauseated. Frequent loose stools without melena or hematochezia. Mild-moderate abdominal discomfort. Review of Systems: Constitutional- as noted above. Cardiac- no chest pain. Pulmonary- no cough or SOB. GI- as noted above. - no urinary symptoms. Otherwise, as noted above. Physical Exam Constitutional: no acute distress ENMT: Mouth: no oral mucosal abnormality and no tongue abnormality Respiratory: no respiratory distress Auscultation: lungs clear to auscultation bilaterally Cardiovascular: Rate/Rhythm: regular rate and regular rhythm Heart Sounds: no gallop Vessels: no JVD Extremities: no calf tenderness and no edema Gastrointestinal (Abdomen): Inspection/Auscultation: normal bowel sounds; abdomen not distended Percussion/Palpation: + abdomen tender (diffuse mild tenderness, no rebound) and abdomen soft; no guarding Musculoskeletal: Extremities: no cyanosis Skin: no rashes, warm and dry Psychiatric: Orientation: alert and oriented x 3 Results & Data ([facility]) Vital Signs (Past 12 Hours) Vital Signs Temp Pulse Pulse Resp BP Pulse Ox 10/11/19 19:30 37.3 C 97 H 16 115/67 98 10/11/19 16:02 36.7 C 86 19 119/74 97 10/11/19 15:27 93 H Laboratory Results 10/11/19 05:48 10/11/19 05:48 Microbiology 10/09/19 02:50 Urine,Clean Catch Urine Culture - Final Klebsiella pneumoniae 10/08/19 13:57 Blood Aerobic Blood Culture - Preliminary No growth in Aerobic bottle after 48 hours. 10/08/19 13:57 Blood Anaerobic Blood Culture - Preliminary No growth in Anaerobic bottle after 48 hours. 10/08/19 13:40 Blood Aerobic Blood Culture - Preliminary No growth in Aerobic bottle after 48 hours. 10/08/19 13:40 Blood Anaerobic Blood Culture - Preliminary No growth in Anaerobic bottle after 48 hours.
[2019-10-11 20:47] LABS: Hemoglobin 9.1 g/dL (12.0-16.0); Mean Corpuscular Hemoglobin 31.5 pg (25-34); Mean Platelet Volume 11.4 fL (7.4-10.4); Platelet Count 20 K/uL (130-400); RDW Coefficient of Variation 15.5 % (11.5-14.5); RDW Standard Deviation 50.4 fL (36.4-46.3); Red Blood Count 2.89 M/uL (4.2-5.4)
[2019-10-11 20:48] LABS: BUN Creatinine Ratio 12.2 (10-20); Calcium 7.4 mg/dl (8.5-10.1); Creatinine Clr Calc Pharmacy 56.6 ml/min; Est GFR (African American) 71.5; Est GFR (Non-African American) 61.7; Magnesium 1.8 mg/dl (1.8-2.4); Potassium 2.8 mmol/L (3.5-5.1)
[2019-10-11 21:08] LABS: Phosphorus 1.4 mg/dl (2.5-4.9)
[2019-10-11] MEDS ORDERED: POTASSIUM PHOS 3 MMOL/1 ML INFUSION IV STA (21:12)
[2019-10-11] MEDS ORDERED: POTASSIUM PHOSPHATE 30 MMOL in SODIUM CHLORIDE 0.9% 500 ML IV ONE (21:30)
[2019-10-11] MEDS ORDERED: POTASSIUM CHLORIDE 20 MEQ/15 ML UDC PO ONE (21:45)
[2019-10-12] MEDS: PIPERACILLIN/TAZOBACTAM 3.375 GM in DEXTROSE 5% 100 ML IV SCH ×3 (03:01→18:18)
[2019-10-12] MEDS ORDERED: POTASSIUM CHLORIDE IV SCH (03:30)
[2019-10-12] MEDS ORDERED: [UNRECOGNIZED DRUG - OTHER] IV SCH (03:30)
[2019-10-12] MEDS ORDERED: POTASSIUM PHOSPHATE IV SCH (03:30)
[2019-10-12] MEDS ORDERED: VANCOMYCIN TROUGH ONE (04:30)
[2019-10-12 05:42] LABS: Hematocrit (blood only) 25.3 % (37-47); Hemoglobin 8.8 g/dL (12.0-16.0); Mean Corpuscular Hemoglobin 31.5 pg (25-34); Mean Corpuscular Hgb Conc 34.8 g/dL (32-36); Mean Corpuscular Volume 90.7 fL (80-100); Mean Platelet Volume 11.8 fL (7.4-10.4); Platelet Count 21 K/uL (130-400); RDW Coefficient of Variation 15.4 % (11.5-14.5); Red Blood Count 2.79 M/uL (4.2-5.4); White Blood Count 1.05 K/uL (4.8-10.8)
[2019-10-12] MEDS: VANCOMYCIN HCL 1,250 MG in SODIUM CHLORIDE 0.9% 250 ML IV SCH (05:44)
[2019-10-12 05:53] LABS: Albumin Level 1.5 gm/dl (3.4-5.0); BUN Creatinine Ratio 13.8 (10-20); Calcium 7.2 mg/dl (8.5-10.1); Creatinine Clr Calc Pharmacy 61.7 ml/min; Est GFR (African American) 79.4; Est GFR (Non-African American) 68.5; Magnesium 1.8 mg/dl (1.8-2.4); Potassium 3.3 mmol/L (3.5-5.1)
[2019-10-12 06:11] LABS: Albumin Globulin Ratio 0.5 (0.9-2); Bilirubin,Total 1.1 mg/dl (0.2-1); Globulin 2.8 gm/dl (2.5-4.0); Phosphorus 2.7 mg/dl (2.5-4.9); Total Protein 4.3 gm/dl (6.4-8.2)
[2019-10-12] MEDS: MoRPHine SULFATE 4 MG/ML 1 ML CARP\\VIAL IV PRN ×3 (06:23→22:22)
[2019-10-12 06:42] LABS: ANC (manual) 0.34 K/uL (1.4-6.5); Eosinophils # (manual) 0.04 K/uL (0-0.5); Metamyelocytes # (manual) 0.02 K/uL (0-0); Monocytes # (manual) 0.24 K/uL (0.11-0.59); Myelocytes # (manual) 0.01 K/uL (0-0); Neutrophils # (manual) 0.34 K/uL (1.4-6.5)
[2019-10-12] MEDS ORDERED: POTASSIUM CHLORIDE 20 MEQ/15 ML UDC PO STA (06:55)
[2019-10-12] MEDS: SUCRALFATE 1 GM/10 ML UDC PO SCH ×4 (07:40→20:45)
--- NOTE | 2019-10-12 08:29 | Pharmacy Report ---
Pharmacy Abx Dose Short Note - Date of Service October 12, 2019 - Assessment & Plan Assessment 64 year old F receiving empiric vancomycin and Zosyn for treatment of neutropenic fever Day # 5 of antimicrobial therapy. Blood cultures remain negative, urine culture: Klebsiella pneumoniae (martinez- sensitive) Patient afebrile over past 48 hours Plan Vancomycin * Trough level of 21.2 mcg/mL is slightly supratherapeutic * Change to 1000 mg IV every 12 hours -will wait approximately 14 hours from start of last dose to start new dosing regimen * Goal trough level for neutropenic fever : 15 to 20 mcg/mL * Trough level ordered for: 10/14/19 * Will recheck SCr in AM and adjust dose further if deemed necessary Zosyn * Continue 3.375 g IV q8h Pharmacy will continue to follow and will adjust dose/frequency as necessary. Thank you.
[2019-10-12] MEDS ORDERED: POT PHOSPHATE MONOBASIC W/ SOD TAB PO SCH (09:00)
[2019-10-12] MEDS: PANTOprazole 40 MG in SYRINGE 0 ML IV SCH ×2 (09:12→20:45)
[2019-10-12] MEDS: ONDANSETRON INJ 2 MG/ML 2 ML VIAL IV PRN ×2 (11:14→16:53)
[2019-10-12] MEDS: PROMETHAZINE HCL 12.5 MG in SODIUM CHLORIDE 0.9% 50 ML IV PRN (13:11)
--- NOTE | 2019-10-12 19:40 | Hospitalist Progress Note ---
Date of Service October 12, 2019 Assessment & Plan (1) Neutropenic fever: Neutropenic fever associated with chemotherapy. Source uncertain. No cough or infiltrates on chest x-ray. UA showed leukocyte esterase, few WBC's, + bacteria. Urine culture growing Klebsiella pneumoniae. Possible biliary source as discussed below. Having loose stools. Possible colitis noted on CT scan. Stool negative for C. difficile. Checking stools for routine enteric pathogens- negative so far. Continue intravenous vancomycin and piperacillin/tazobactam. (2) Urinary tract infection: UA showed leukocyte esterase, few WBC's, + bacteria. Urine culture growing Klebsiella pneumoniae. UTI- (present on admission) (3) Elevated LFTs: LFTs elevated at time of admission. CT demonstrated mild thickening of gallbladder wall, gas within the gallbladder lumen, mild pericholecystic stranding. Ultrasound demonstrated borderline gallbladder wall thickening with a few tiny stones and sludge, pneumobilia. Status post ERCP with stent placement on 07/04/2019 and then repeat ERCP for stent change on 08/28/2019. GI consulted. Repeat ERCP not recommended at this time. LFT's improved: Total bilirubin 2.3-->1.1 AST 60 --> 8 ALT 114 --> 44 AP 259 --> 118 Continue antibiotics for possible cholecystitis or cholangitis. (4) Acute upper GI bleed: Hematemesis with moderate amounts of gross blood. Receiving IV pantoprazole. Hemoglobin falling as discussed below. Transfuse as necessary to maintain adequate H&H; target hemoglobin at least greater than 8. GI consulted. (5) Anemia: Hemoglobin at time of admission 10.7 and fell as low as 7.8. Anemia probably secondary to combination of chemotherapy as well as acute blood loss anemia secondary to upper GI bleed. Received 1 unit of pRBC's. Hgb today = 8.8. Follow. Transfuse to maintain hemoglobin at least greater than 8. (6) Neutropenia: Received Neulasta prior to admission. White count at time of admission was 320 and fell as low as 100. White count this morning 1050 / ANC 340. Monitor WBC with differential. (7) Thrombocytopenia: Platelet count at time of admission 34,000 and fell as low as 10,000. Has received 2 bags pheresed platelets. Platelet count this morning = 21,000. Experienced upper GI bleeding. Transfuse platelets as necessary. (8) Pancreatic cancer: Per Hematology/Oncology. (9) Hypokalemia: Serum potassium as low as 3.1. Received replacement. K this morning = 3.3. Replace. Follow. (10) Hypomagnesemia: Magnesium as low as 1.7. Received replacement. Mg today = 1.8. Replace. Follow. (11) Hypophosphatemia: Serum phosphorus as low as 1.2. Received replacement. Phos this morning 2.7. Replace. Follow. (12) Severe malnutrition: 15 pound weight loss since August. Underlying malignancy. Poor p.o. intake due to GI symptoms. Boost Breeze ordered. Seen by Nutrition. Severe protein calorie malnutrition. Continue diet as tolerated and supplements. (13) DVT prophylaxis: No anticoagulants secondary to upper GI bleeding and thrombocytopenia. SCDs. Ambulate. (14) Discharge planning issues: Discharge disposition to be determined. Local Medical Oncology follow-up with Dr. Ortiz Torres. Also followed by Medical Oncology at [facility]. Admission and Anticipated Discharge Date Admission Date: October 08, 2019 Subjective Recheck for neutropenic fever and other problems. Patient seen in their room around 1030. Family visiting. Gradual improvement. Temp down. Small bilious emesis last evening; still nauseated. Frequent loose stools without melena or hematochezia. Ongoing abdominal discomfort. Review of Systems: Constitutional- as noted above. Cardiac- no chest pain. Pulmonary- no cough or SOB. GI- as noted above. - no urinary symptoms. Otherwise, as noted above. Physical Exam Constitutional: no acute distress ENMT: Mouth: no oral mucosal abnormality and no tongue abnormality Respiratory: no respiratory distress Auscultation: lungs clear to auscultation bilaterally Cardiovascular: Rate/Rhythm: regular rate and regular rhythm Heart Sounds: no gallop Vessels: no JVD Extremities: no calf tenderness and no edema Gastrointestinal (Abdomen): Inspection/Auscultation: normal bowel sounds; abdomen not distended Percussion/Palpation: + abdomen tender (diffuse mild tenderness, no rebound) and abdomen soft; no guarding Musculoskeletal: Extremities: no cyanosis Skin: no rashes, warm and dry Psychiatric: Orientation: alert and oriented x 3 Results & Data ([facility]) Vital Signs (Past 12 Hours) Vital Signs Temp Pulse Resp BP Pulse Ox 10/12/19 19:27 37 C 80 16 99/64 L 96 10/12/19 16:17 36.7 C 92 H 18 103/64 96 10/12/19 11:55 37.0 C 98 H 18 99/64 L 96 Laboratory Results 10/12/19 04:40 10/12/19 04:40
[2019-10-12] MEDS: VANCOMYCIN HCL 1,000 MG in SODIUM CHLORIDE 0.9% 250 ML IV SCH (20:44)
[2019-10-12] MEDS ORDERED: POTASSIUM PHOS 3 MMOL/1 ML INFUSION IV ONE (20:55)
[2019-10-12] MEDS ORDERED: POTASSIUM PHOSPHATE 21 MMOL in SODIUM CHLORIDE 0.9% 500 ML IV ONE (21:30)
[2019-10-12] MEDS: POTASSIUM CHLORIDE / WTR 10 MEQ/100 ML PLCT IV SCH ×2 (21:59→23:21)
[2019-10-12] MEDS: LORazepam 0.5 MG/1 ML VIAL IV PRN (22:22)
[2019-10-13] MEDS: PIPERACILLIN/TAZOBACTAM 3.375 GM in DEXTROSE 5% 100 ML IV SCH ×3 (03:44→20:35)
[2019-10-13] MEDS: SUCRALFATE 1 GM/10 ML UDC PO SCH ×2 (06:17→13:27)
[2019-10-13 06:43] LABS: BUN Creatinine Ratio 15.6 (10-20); Calcium 7.4 mg/dl (8.5-10.1); Est GFR (African American) 96.1; Est GFR (Non-African American) 82.9; Magnesium 1.7 mg/dl (1.8-2.4); Phosphorus 2.5 mg/dl (2.5-4.9); Potassium 3.2 mmol/L (3.5-5.1)
[2019-10-13 06:55] LABS: Hematocrit (blood only) 24.4 % (37-47); Hemoglobin 8.5 g/dL (12.0-16.0); Mean Corpuscular Hemoglobin 31.5 pg (25-34); Mean Corpuscular Hgb Conc 34.8 g/dL (32-36); Mean Corpuscular Volume 90.4 fL (80-100); Nucleated RBC # (auto) 0.04 K/uL (0-0); Nucleated RBC % (auto) 0.8 %; Platelet Count 23 K/uL (130-400); RDW Coefficient of Variation 15.8 % (11.5-14.5); RDW Standard Deviation 51.9 fL (36.4-46.3)
[2019-10-13] MEDS: VANCOMYCIN HCL 1,000 MG in SODIUM CHLORIDE 0.9% 250 ML IV SCH ×2 (07:50→20:36)
[2019-10-13] MEDS: [UNRECOGNIZED DRUG - OTHER] IV SCH ×2 (07:50→20:37)
[2019-10-13] MEDS: MAGNESIUM SULFATE IV SCH ×2 (07:50→20:37)
[2019-10-13] MEDS: PANTOprazole 40 MG in SYRINGE 0 ML IV SCH ×2 (07:50→20:37)
[2019-10-13] MEDS: POTASSIUM PHOSPHATE IV SCH ×2 (07:50→20:37)
[2019-10-13] MEDS: POTASSIUM CHLORIDE IV SCH ×2 (07:50→20:37)
--- NOTE | 2019-10-13 09:24 | Gastroenterology Progress Note ---
Date of Service October 13, 2019 Assessment & Plan (1) Elevated LFTs: Bilirubin has improved; transaminases have normalized. She's without abd complaints; remains afebrile. Etiology of elevated LFTs may have been from chemotherapy. - Recommend pt follow-up with her oncology team at [facility] - GI will sign off. Please call with questions. Admission and Anticipated Discharge Date Admission Date: October 08, 2019 Supervising Physician Co-Signing Physician Notes I have discussed the patient's management with the advanced practitioner. Pl ease refer to the nurse practitioner's note for the documented findings and plan of care. Liver enzymes now normalizing. No indication for ERCP at this time, her fever and abn LFTs could be related to her chemotherapy. There is evidence of pneumobilia on imaging which suggest patency of the biliary stent. Recall GI if needed. Subjective Pt with no nausea, abd pain, vomiting this AM. C/o some diarrhea. No acute events overnight. Tolerating clear liquids. Results & Data ([facility]) Vital Signs (Past 12 Hours) Vital Signs Temp Pulse Pulse Resp BP Pulse Ox 10/13/19 07:09 36.9 C 90 18 96/60 L 97 10/13/19 04:21 36.9 C 94 H 16 96/60 L 96 10/13/19 00:38 85 10/12/19 23:31 37.1 C 91 H 16 105/66 97 Laboratory Results Bilirubin 1.1, AST 8, ALT 44, ALP 118.
[2019-10-13] MEDS ORDERED: OPTIRAY 320 125ml IV PRN (11:14)
--- NOTE | 2019-10-13 11:35 | CT Scan Report ---
CT head/brain wo con CLINICAL HISTORY: left-sided weakness COMPARISON STUDY: No previous studies for comparison. TECHNIQUE: Axial CT of the brain is performed from the vertex to the skull base. IV contrast was not administered for this examination. A dose lowering technique was utilized adhering to the principles of ALARA. CT DOSE: FINDINGS: No intra or extra-axial mass lesions are visualized. There is pneumocephalus within the right vertex. Gas lies either within the subarachnoid space or small veins. There is no midline shift. There is no acute hemorrhage. There are patchy white matter hypodensities likely on a small vessel basis. There is no evidence of pathologic ventricular dilatation. There is no evidence of acute sinusitis. The scan findings were reviewed with Dr. Dawson. IMPRESSION: 1. Unexplained pneumocephalus within the right vertex. The gas lies either within the subarachnoid sp hilton or small veins. 2. No acute hemorrhage. 3. The scan findings were personally reviewed with Dr. Dawson ACT 112: Negative or not required by law. Electronically signed by: Juan Saenz M.D. 10/13/2019 11:33 AM
--- NOTE | 2019-10-13 11:38 | CT Scan Report ---
CT angio head w con CLINICAL HISTORY: 64 years-old Female presenting with left-sided weakness. TECHNIQUE: Multidetector CT angiography of the head was performed after the administration of intrave nous contrast. 3-D volumetric and/or maximum intensity projection (MIP) images were subsequently kaelyn nstructed for review. IV contrast: 119 mL of Optiray 320. One or more dose lowering techniques were u sed consistent with the principles of ALARA (as low as reasonably achievable), including automatic ex posure control, mA or kV adjustment to individual patient size, and/or use of iterative reconstructio n. COMPARISON: None. CT DOSE (mGy.cm): The estimated cumulative dose is 895.82 mGy.cm. FINDINGS: Chemical Machine Tender topogram: Right internal jugular Mediport. Anterior circulation: Intracranial portions of the internal carotid arteries patent to the level of t he termini. Anterior cerebral arteries patent. Middle cerebral arteries patent. Anterior communicatin g artery patent. Posterior circulation: Codominant vertebral arteries. Intradural portions of the vertebral arteries p atent. Posterior inferior cerebellar arteries patent. Basilar artery patent. Anterior inferior cerebe llar arteries poorly visualized. Superior cerebellar arteries patent. Posterior cerebral arteries pat ent. Posterior communicating arteries patent. Dural venous sinuses: Patent. Other: Subarachnoid gas noted in the right frontal region near the vertex. This may be potentially in travascular. Calvarium intact. IMPRESSION: 1. No evidence of aneurysm, focal vessel occlusion, or significant stenosis of the intracranial carlos eryn. 2. Pneumocephalus with subarachnoid gas in the right frontal region near the vertex. This may be pot entially intravascular, which would be unexpected and potentially imply a right to left shunt. Other etiologies of pneumocephalus would be equally unexpected. Please see separately dictated CT head. ACT 112: Negative or not required by law. Electronically signed by: Luis Gray M.D. 10/13/2019 11:37 AM
--- NOTE | 2019-10-13 11:44 | CT Scan Report ---
CT angio neck with con CLINICAL HISTORY: 64 years-old Female presenting with left-sided weakness. TECHNIQUE: Multidetector CT angiography of the neck was performed after the administration of intrave nous contrast. 3-D volumetric and/or maximum intensity projection (MIP) images were subsequently kaelyn nstructed for review. IV contrast: 119 mL of Optiray 320. One or more dose lowering techniques were u sed consistent with the principles of ALARA (as low as reasonably achievable), including automatic ex posure control, mA or kV adjustment to individual patient size, and/or use of iterative reconstructio n. Stenosis measurements were based on NASCET-like criteria (distal lumen diameter as the denominator for stenosis measurement). COMPARISON: None. CT DOSE (mGy.cm): The estimated cumulative dose is 895.82. FINDINGS: Dedicated Local [employer] Driver topogram: Right internal jugular Mediport. Aortic arch: Normal three-vessel aortic arch with patent origins of the branch vessels. Innominate artery: Patent. Right subclavian artery: Patent. Right common carotid artery: Patent. Right internal and external carotid arteries: Focal irregularity of the proximal right internal carot id artery (series 6 image 248). This region demonstrates irregular beading with mild aneurysmal dilat ation and minimal stenosis. There is lesser irregularity of the mid to distal portion focally (series 6 image 3 or 4). Left common carotid artery: Patent. Left internal and external carotid arteries: Irregularity of the mid internal carotid artery with mul tifocal mild aneurysmal outpouchings (series 6 images 257 and 262). Lesser degree of change noted in the distal portion. Left subclavian artery: Patent. Vertebral arteries: Codominant vertebral arteries. Origins and courses of the bilateral vertebral art eries patent. Other: Limited intracranial evaluation within normal limits. Multinodular thyroid. Mild degenerative changes of the cervical spine. Pleural parenchymal scarring at the apices, right greater than left. IMPRESSION: 1. Subtle irregular beaded appearance of the bilateral internal carotid arteries concerning for fibr omuscular dysplasia. Differential considerations also include vasculitis or less likely atherosclerot ic or traumatic aneurysms. 2. No focal vessel occlusion or dissection. ACT 112: Negative or not required by law. Electronically signed by: Luis Gray M.D. 10/13/2019 11:43 AM
[2019-10-13] MEDS ORDERED: PHARMACIST DISCHARGE MED REC CONSULT PRN (12:00)
[2019-10-13 12:06] LABS: INR 1.9 (0.9-1.1); Partial Thromboplastin Ratio 1.3; Partial Thromboplastin Time 37.4 Seconds (21.0-31.0)
--- NOTE | 2019-10-13 12:36 | XRay Report ---
XR chest 1V portable CLINICAL HISTORY: 64 years-old Female presenting with stroke-like symptoms. TECHNIQUE: Portable upright AP view of the chest was obtained. COMPARISON: None. FINDINGS: Right internal jugular Mediport terminates at the superior cavoatrial junction. Cardiomediastinal pat houette otherwise normal. Several overlying external leads project over the right hemithorax. No foca l opacity. No large effusion or pneumothorax. Prominent nipple shadow at the right lung base. Osseous structures normal. Upper abdomen normal. IMPRESSION: 1. No acute cardiopulmonary disease. ACT 112: Negative or not required by law. Electronically signed by: Luis Gray M.D. 10/13/2019 12:35 PM
[2019-10-13] MEDS ORDERED: SODIUM CHLORIDE 0.9% 250 ML IV PRN (12:49)
--- NOTE | 2019-10-13 12:56 | Critical Care Consultation ---
Date of Consultation October 13, 2019 Assessment & Plan (1) Pneumocephalus: Patient with acute findings consistent with pneumocephalus with an unclear etiology. She did have recent bowel instrumentation with a recent stent placement and now a GI bleed. We will consider ordering a CT of the abdomen and pelvis. Ordered a chest x-ray as well to evaluate for any evidence of pneumothorax or pneumomediastinum. MRI of the brain pending. Dr. Dawson did discussed the care of this patient with a tertiary referral center and neurosurgery. We are inquiring about the possibility of requiring hyperbaric oxygen. She will likely need imaging of her spine as well to look for evidence of air within the spinal canal. We have placed her in Trendelenburg to prevent any further pneumocephalus. Unclear whether this is a venous air embolism, arterial air embolism or some kind of primary etiology in the brain. Her IV site and port appear intact. She is hemodynamically stable. She is saturating well on room air. She has thrombocytopenia with a platelet count of 23,000. She is hypokalemic with a potassium 3.2. She is also hypomagnesemic. She did have evidence of a UTI on 10/09/2019. Urine is growing Klebsiella pneumonia. She is on vancomycin and Zosyn for UTI and also for the possibility of an abdominal source of sepsis. She does have evidence of marked attenuation in the superior mesenteric vein at the level of the pancreatic mass. The vessel remains patent. There is also pneumobilia present around her stent site. Certainly we are considering these as possibilities of her pneumocephalus. Her overall prognosis is poor. CRITICAL CARE TIME - I have personally spent 30 minutes of critical care time in the direct management of this patient. This is a life/limb threatening event. This includes time spent evaluating patient, direct bedside care, chart review, placing order s, interpretation of diagnostic studies, discussion with consultants, patient, and family members, as well as other required patient management activities. This time is exclusive of all separately billable procedures, and teaching time and separate from and in addition to any other critical care service time. (2) Hemiplegia affecting left dominant side: (3) Elevated LFTs: (4) Thrombocytopenia: (5) Neutropenia: (6) Acute upper GI bleed: History of Present Illness Reason for Consultation: Strokelike symptoms Requesting Physician: Dr. Dawson Attending Physician: Marco A Dawson MD History of Present Illness 64-year-old female with a past medical history of pancreatic cancer undergoing chemotherapy who admitted to the hospital on 10/08/2019 due to transaminitis and hematemesis. Patient was found to have a neutropenic fever associated with her chemotherapy with concern for possible biliary source of sepsis. There is possible colitis on the CT scan of her abdomen. She has been on intravenous vancomycin and Zosyn. She also had elevated LFTs. She developed GI bleed and has been on a PPI drip. EGD was deferred due to her neutropenia and thrombocytopenia. There is also concern for an occluded biliary stent. This afternoon she developed strokelike symptoms with dense left-sided hemiplegia and underwent a CT of her head. CT had demonstrated unexplained pneumocephalus within the right vertex. The gas lies either within the subarachnoid space with a small veins. CTA of the neck was significant for subtle irregular beaded appearance of the bilateral internal carotid arteries concerning for fibromuscular dysplasia. The patient is lying in bed. She denies any significant complaint. She is unable to move her left side. She has a left-sided facial droop as well. She apparently had some dysarthria and was altered at the time of the exam per discussion with the hospitalist. Currently she is alert awake and oriented. She is making jokes. She does not appear to be in any distress. She denies any chest pain, abdominal pain, fevers or chills. No nausea. She has her family at bedside as well including her sister and her . Echocardiogram on 10/05/2019 illustrated normal ejection fraction with mild concentric LVH. Allergies Allergy/AdvReac Type Severity Reaction Status Date / Time codeine Allergy Unknown Unverified 10/08/19 14:15 Home Medications Home Medications Medication Instructions Recorded Confirmed Type docusate sodium [Colace] 100 mg PO BID 08/25/19 10/08/19 History oxycodone [OxyContin] 20 mg PO Q12H PRN 08/25/19 10/08/19 History senna 8.6 mg PO HS PRN 08/25/19 10/08/19 History Neulasta 0 mg SUBCUT UD 10/04/19 10/08/19 History Prilosec OTC 20 mg PO DAILY 10/04/19 10/08/19 History loratadine [Claritin] 10 mg PO DAILY 10/04/19 10/08/19 History [id number] [Creon] 1 cap PO TIDM 10/08/19 10/08/19 History ondansetron HCl [Zofran] 8 mg PO Q6H PRN 10/08/19 10/08/19 History prochlorperazine maleate 5 mg PO BID PRN 10/08/19 10/08/19 History [Compazine] simethicone 125 mg PO BID PRN 10/08/19 10/08/19 History Patient History Medical History Pancreatic cancer Surgical History No pertinent past surgical history Family History Other No pertinent family history Social History Preferred Language: American Communication Ability: Effective Shearing Shed Hand Required: No Beliefs That Will Affect Care: None marital status: Current Living Situation: Spouse Feels Safe at Home: Yes Safety Concerns: Feels Safe At This Time Smoking Status: Never smoker Do You Dip or Chew Tobacco: No ; Second Hand Exposure: No ; Hx Alcohol Use: No Hx Substance Use: No Review of Systems Review of Systems: All systems reviewed & are unremarkable except as noted in Subjective Physical Exam Constitutional: Patient laying in bed. Frail-appearing. Eyes: PERRL, conjunctivae normal, anicteric sclerae ENMT: external ear and nose normal, oropharynx normal Neck: normal visual inspection Respiratory: normal respiratory effort, lungs clear to auscultation Cardiovascular: RRR, no murmur, no edema Gastrointestinal (Abdomen): normal bowel sounds, soft, nontender, no hepatosplenomegaly Musculoskeletal: no cyanosis or clubbing, extremities motor strength 5/5 Skin: no rashes, warm and dry Neurologic: Dense left-sided matteo-plegia. Upward Babinski on the left. Facial droop on the left. Psychiatric: A+Ox3, euthymic affect Results & Data ([facility]) Vital Signs (Past 12 Hours) Vital Signs Temp Pulse Resp BP Pulse Ox 10/13/19 11:06 98.4 F 92 H 18 111/70 94 10/13/19 07:09 98.4 F 90 18 96/60 L 97 10/13/19 04:21 98.5 F 94 H 16 96/60 L 96 I personally reviewed her chest imaging, head imaging, labs and previous notes. Coding Level of Care Code Critical Care 1st 30-74 mins Diagnoses Pneumocephalus G93.89 Hemiplegia affecting left dominant side G81.92 Elevated LFTs R94.5 Thrombocytopenia D69.6 Neutropenia D70.9 Acute upper GI bleed K92.2 Time Spent (min) 30
--- NOTE | 2019-10-13 13:33 | Neurology Consultation ---
Date of Consultation October 13, 2019 Assessment & Plan (1) Hemiplegia affecting left dominant side: 1. CTA head neck - no occlusion or significant stenosis 2. CT head- pneumocephalus right hemisphere 3. left sided dense matteo plegia 4. oncology for pancreatic CA treatment 5. ICU team medical management 6. MRI brain- acute infarct posterior right frontal lobe. air embolic stroke 7. TTE if not already done 8. PT/OT for discharge needs 9. would not start antiplt therapy on this patient as usually protocol would suggest due to plt count 10. palliative medicine may be helpful for family needs and direction of care. Present on Admission?: No (2) Pneumocephalus: (3) Severe malnutrition: Present on Admission?: Yes (4) Pancreatic cancer: Present on Admission?: Yes Supervising Physician Co-Signing Physician Notes Patient was seen and examined. Daughter and son at bedside. Noted to have left hemiparesis this morning. CT head and MRI brain imaging reviewed. Imaging consistent with a right MCA cerebral air embolism ischemic stroke. On examine patient speech is clear and comprehension is intact. Left arm and leg are flaccid. Sensory neglect to light touch in the left leg. Agree with TTE with shunt and PT/OT. History of Present Illness Reason for Consultation: stroke like symptoms Requesting Physician: Marco A Dawson MD Attending Physician: Marco A Dawson MD History of Present Illness Niharika is a 64 year old female who presents from her oncologist office on 10/08/2019 for evaluation of abdominal pain, nausea, vomiting, diarrhea. She has known pancreatic cancer currently undergoing chemotherapy has had 4 rounds. She was admitted [facility] through 10/05 for near syncope and orthostasis due to dehydration in the setting of chemotherapy. She returned home and developed N,V, abdominal pain, diarrhea along with lightheadedness and dizziness however no syncopal event. This am she was examined by the primary team and she had left facial weakness, and flaccid on the left arm and leg. she states she did not have a headache with the symptoms and was a sudden onset. A stroke alert was called and a CT head showed pneumocephalus. denies CP, SOB, vision changes, swallowing issue, new bowel or bladder issues. Allergies Allergy/AdvReac Type Severity Reaction Status Date / Time codeine Allergy Unknown Unverified 10/08/19 14:15 Home Medications Home Medications Medication Instructions Recorded Confirmed Type docusate sodium [Colace] 100 mg PO BID 08/25/19 10/08/19 History oxycodone [OxyContin] 20 mg PO Q12H PRN 08/25/19 10/08/19 History senna 8.6 mg PO HS PRN 08/25/19 10/08/19 History Neulasta 0 mg SUBCUT UD 10/04/19 10/08/19 History Prilosec OTC 20 mg PO DAILY 10/04/19 10/08/19 History loratadine [Claritin] 10 mg PO DAILY 10/04/19 10/08/19 History tvcqxa-swvyxakh-nuelrkc [Creon] 1 cap PO TIDM 10/08/19 10/08/19 History ondansetron HCl [Zofran] 8 mg PO Q6H PRN 10/08/19 10/08/19 History prochlorperazine maleate 5 mg PO BID PRN 10/08/19 10/08/19 History [Compazine] simethicone 125 mg PO BID PRN 10/08/19 10/08/19 History Patient History Medical History (Updated 10/13/19 @ 12:49 by Neil Piper MD) Hemiplegia affecting left dominant side Pancreatic cancer Pneumocephalus Surgical History No pertinent past surgical history Family History Other No pertinent family history Social History Preferred Language: Ukrainian Communication Ability: Effective 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 Beliefs That Will Affect Care: None marital status: Current Living Situation: Spouse Feels Safe at Home: Yes Safety Concerns: Feels Safe At This Time Smoking Status: Never smoker Do You Dip or Chew Tobacco: No ; Second Hand Exposure: No ; Hx Alcohol Use: No Hx Substance Use: No Physical Exam Physical Exam: Physical Exam: Constitutional: appearance pale ill appearing currently in Trendelenburg Ears, Nose, Mouth and Throat: mucous membranes moist, no injection and skin normal, eyes normal Cardiovascular: normal S-1 and S-2 and regular rate and rhythm Respiratory: clear to auscultation (CTA) Musculoskeletal: no peripheral edema and good distal pulses Skin: no stigmata of neurocutaneous disease noted and normal and intact Eyes: extraocular muscles intact (EOMI) and pupils equal, round and reactive to light (PERRL) NEUROLOGIC EXAMINATION: Mental status: Alert and interactive Oriented to full date and location Oriented to person Speech fluent with no evidence of aphasia Cranial Nerves slight flattening left nasolabial fold Reflexes: Deep tendon reflexes were symmetrical and graded 2/5. 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 right 5/5, left 0/5, hip flex plantar flex right 4+/5 left 0/5 Results & Data Vital Signs (Past 12 Hours) Vital Signs Temp Pulse Pulse Resp BP BP Pulse Ox 10/13/19 12:30 93 H 20 128/69 97 10/13/19 12:00 36.4 C L 88 16 114/65 97 10/13/19 11:45 90 22 119/64 98 10/13/19 11:06 36.9 C 92 H 18 111/70 94 10/13/19 07:09 36.9 C 90 18 96/60 L 97 10/13/19 04:21 36.9 C 94 H 16 96/60 L 96 Laboratory Results Abnormal lab results 10/12/19 10/13/19 10/13/19 Range/Units 20:13 05:27 05:27 RBC 2.70 L (4.2-5.4) M/uL Hgb 8.5 L (12.0-16.0) g/dL Hct 24.4 L (37-47) % RDW Std Deviation 51.9 H (36.4-46.3) fL RDW Coeff of Rajesh 15.8 H (11.5-14.5) % Plt Count 23 L* (130-400) K/uL Absolute Nucleated RBC 0.04 H (0-0) K/uL PT (9.0-12.0) Seconds INR (0.9-1.1) APTT (21.0-31.0) Seconds Potassium 2.9 L 3.2 L (3.5-5.1) mmol/L POC Glucose (70-99) mg/dl Calcium 7.4 L (8.5-10.1) mg/dl Magnesium 1.7 L (1.8-2.4) mg/dl Crossmatch 10/13/19 10/13/19 10/13/19 Range/Units 10:58 11:46 11:46 RBC (4.2-5.4) M/uL Hgb (12.0-16.0) g/dL Hct (37-47) % RDW Std Deviation (36.4-46.3) fL RDW Coeff of Rajesh (11.5-14.5) % Plt Count (130-400) K/uL Absolute Nucleated RBC (0-0) K/uL PT 19.0 H (9.0-12.0) Seconds INR 1.9 H (0.9-1.1) APTT 37.4 H (21.0-31.0) Seconds Potassium (3.5-5.1) mmol/L POC Glucose (70-99) mg/dl Calcium (8.5-10.1) mg/dl Magnesium (1.8-2.4) mg/dl Crossmatch See Detail See Detail 10/13/19 Range/Units 13:30 RBC (4.2-5.4) M/uL Hgb (12.0-16.0) g/dL Hct (37-47) % RDW Std Deviation (36.4-46.3) fL RDW Coeff of Rajesh (11.5-14.5) % Plt Count (130-400) K/uL Absolute Nucleated RBC (0-0) K/uL PT (9.0-12.0) Seconds INR (0.9-1.1) APTT (21.0-31.0) Seconds Potassium (3.5-5.1) mmol/L POC Glucose 124 H (70-99) mg/dl Calcium (8.5-10.1) mg/dl Magnesium (1.8-2.4) mg/dl Crossmatch Diagnostic Findings CTA head- No evidence of aneurysm, focal vessel occlusion, or significant stenosis of the intracranial arteries. Pneumocephalus with subarachnoid gas in the right frontal region near the vertex. This may be potentially intravascular, which would be unexpected and potentially imply a right to left shunt. Other etiologies of pneumocephalus would be equally unexpected. CTA neck- Subtle irregular beaded appearance of the bilateral internal carotid arteries concerning for fibromuscular dysplasia. Differential considerations also include vasculitis or less likely atherosclerotic or traumatic aneurysms. No focal vessel occlusion or dissection. CT head- Unexplained pneumocephalus within the right vertex. The gas lies either within the subarachnoid space or small veins. No acute hemorrhage. MRI brain- Acute infarct in the posterior right frontal lobe involving a portion of the precentral gyrus. Associated T2/FLAIR signal abnormality suggesting an infarct at least 6 to 12 hours old.
--- NOTE | 2019-10-13 14:13 | Magnetic Resonance Report ---
MR brain wo con CLINICAL HISTORY: 64 years-old Female presenting with stroke-like symptoms, left-sided arm and leg we akness, difficulty moving. TECHNIQUE: Multisequence, multiplanar MR imaging of the brain was performed without the use of intrav enous contrast. IV contrast: None. COMPARISON: Noncontrast CT head from earlier today. FINDINGS: Localizer images: Unremarkable. Bone marrow signal intensity within the calvarium within normal limits. Normal midline sagittal structures. Ventricles and sulci normal in size. No mass effect or midline sh ift. Restricted diffusion in a limited portion of the subcortical white matter and overlying marie mat ter of the posterior right frontal lobe near the vertex. This appears to involve a portion of the pre central gyrus. Associated T2/FLAIR hyperintensity of this region. Scattered punctate foci of suscepti bility artifact in this region may correspond to foci of pneumocephalus evident on CT had. No extra-axial fluid collection. T2 skull base flow voids preserved. IMPRESSION: 1. Acute infarct in the posterior right frontal lobe involving a portion of the precentral gyrus. As sociated T2/FLAIR signal abnormality suggesting an infarct at least 6 to 12 hours old. The report will be called/faxed according to standard departmental protocol for a critical finding. ACT 112: Negative or not required by law. Electronically signed by: Luis Gray M.D. 10/13/2019 2:11 PM
--- NOTE | 2019-10-13 16:49 | Electrocardiogram Report ---
Test Reason : Blood Pressure : / mmHG Vent. Rate : 087 BPM Atrial Rate : 087 BPM P-R Int : 118 ms QRS Dur : 102 ms QT Int : 370 ms P-R-T Axes : 055 046 000 degrees QTc Int : 445 ms Poor data quality, interpretation may be adversely affected Sinus rhythm with Premature supraventricular complexes Incomplete right bundle branch block Abnormal ECG When compared with ECG of 10-OCT-2019 06:42, Premature supraventricular complexes are now Present Questionable change in QRS axis Confirmed by Boogie Chandler ([id number]) on 10/13/2019 4:48:32 PM Referred By: REFERRED SELF Confirmed By:Boogie Chandler
[2019-10-13 19:09] LABS: Hematocrit (blood only) 30.4 % (37-47); Hemoglobin 10.7 g/dL (12.0-16.0); Mean Corpuscular Hemoglobin 31.6 pg (25-34); Mean Corpuscular Hgb Conc 35.2 g/dL (32-36); Mean Corpuscular Volume 89.7 fL (80-100); Mean Platelet Volume 11.9 fL (7.4-10.4); Nucleated RBC # (auto) 0.11 K/uL (0-0); Nucleated RBC % (auto) 0.9 %; Platelet Count 29 K/uL (130-400); RDW Coefficient of Variation 15.6 % (11.5-14.5); RDW Standard Deviation 49.5 fL (36.4-46.3); Red Blood Count 3.39 M/uL (4.2-5.4); White Blood Count 12.03 K/uL (4.8-10.8)
[2019-10-13 19:13] LABS: BUN Creatinine Ratio 10.4 (10-20); Calcium 7.3 mg/dl (8.5-10.1); Creatinine Clr Calc Pharmacy 72.1 ml/min; Est GFR (African American) 93.1; Est GFR (Non-African American) 80.3
[2019-10-13] MEDS: POTASSIUM CHLORIDE / WTR 10 MEQ/100 ML PLCT IV SCH ×2 (20:35→23:07)
--- NOTE | 2019-10-13 20:57 | Hospitalist Progress Note ---
Date of Service October 13, 2019 Assessment & Plan (1) Stroke: Sudden onset of left hemiparesis this morning. Left hemiparesis noted around 1050. Last known well approximately 1015 per RN. Stroke alert called. Stat CT ordered and patient was transferred to ICU. Initial concern was possibility of a hemorrhagic stroke given patient's thrombocytopenia. However, there was no intracranial hemorrhage. Pneumocephalus was noted within the right vertex / subarachnoid space. No large vessel occlusion noted on CT of head neck. Tele-stroke consultation with [facility] requested. The undersigned discussed the case with neurology and neurosurgery at [facility]. Thrombolytic therapy contraindicated due to thrombocytopenia and, furthermore, probably not indicated given the nature of the event. No indication for neurointerventional or neurosurgical intervention. MRI demonstrated acute infarct in the posterior right frontal lobe in the region of the previously noted pneumocephalus. Case was discussed further with Neurology at [facility] as well as Neurology at [facility]. Air embolus with right to left shunt was considered. Echo with bubble study ordered-results pending. Etiology of suspected air embolus unclear. Nursing inspected IV tubing and connections and all appeared to be intact. Ongoing management per stroke protocol. Aspirin therapy contraindicated because of severe thrombocytopenia; also not indicated due to nature of neurologic event. PT/OT/ELECTRICAL TIMING DEVICE CALIBRATOR evaluations. Patient was reassessed several times throughout the day and evening. Neuro status remained the same with persistent dense left hemiparesis. Family given updates throughout the day. (2) Neutropenic fever: Neutropenic fever associated with chemotherapy. Source uncertain. No cough or infiltrates on chest x-ray. UA showed leukocyte esterase, few WBC's, + bacteria. Urine culture growing Klebsiella pneumoniae. Possible biliary source as discussed below. Having loose stools. Possible colitis noted on CT scan. Stool negative for C. difficile. Checking stools for routine enteric pathogens- negative so far. Continue intravenous vancomycin and piperacillin/tazobactam. (3) Urinary tract infection: UA showed leukocyte esterase, few WBC's, + bacteria. Urine culture growing Klebsiella pneumoniae. UTI- (present on admission) (4) Elevated LFTs: LFTs elevated at time of admission. CT demonstrated mild thickening of gallbladder wall, gas within the gallbladder lumen, mild pericholecystic stranding. Ultrasound demonstrated borderline gallbladder wall thickening with a few tiny stones and sludge, pneumobilia. Status post ERCP with stent placement on 07/04/2019 and then repeat ERCP for stent change on 08/28/2019. GI consulted. Repeat ERCP not recommended at this time. LFT's improved: Total bilirubin 2.3-->1.1 AST 60 --> 8 ALT 114 --> 44 AP 259 --> 118 Continue antibiotics for possible cholecystitis or cholangitis. (5) Acute upper GI bleed: Hematemesis with moderate amounts of gross blood. Receiving IV pantoprazole. Hemoglobin falling as discussed below. Transfuse as necessary to maintain adequate H&H; target hemoglobin at least greater than 8. GI consulted. (6) Anemia: Hemoglobin at time of admission 10.7 and fell as low as 7.8. Anemia probably secondary to combination of chemotherapy as well as acute blood loss anemia secondary to upper GI bleed. Received 1 unit of pRBC's. Hgb today = 8.5. Follow. Transfuse to maintain hemoglobin at least greater than 10 in light of acute stroke. (7) Neutropenia: Received Neulasta prior to admission. White count at time of admission was 320 and fell as low as 100. White count this morning = 5000. Monitor WBC with differential. (8) Thrombocytopenia: Platelet count at time of admission 34,000 and fell as low as 10,000. UGI bleeding early in hospital course- resolved. Has received 2 bags pheresed platelets. Platelet count this morning = 23,000. Transfuse platelets as necessary. (9) Pancreatic cancer: Per Hematology/Oncology. (10) Hypokalemia: Serum potassium as low as 3.1. Received replacement. K this morning = 3.2. Replace. Follow. (11) Hypomagnesemia: Magnesium as low as 1.7. Received replacement. Mg today = 1.7. Replace. Follow. (12) Hypophosphatemia: Serum phosphorus as low as 1.2. Received replacement. Phos this morning 2.5. Replace. Follow. (13) Severe malnutrition: 15 pound weight loss since August. Underlying malignancy. Poor p.o. intake due to GI symptoms. Boost Breeze ordered. Seen by Nutrition. Severe protein calorie malnutrition. Continue diet as tolerated and supplements. Consider TPN or enteral nutritional support. (14) DVT prophylaxis: No anticoagulants secondary to upper GI bleeding and thrombocytopenia. SCDs. Ambulate. (15) Discharge planning issues: Discharge disposition to be determined. Local Medical Oncology follow-up with Dr. Ortiz Torres. Also followed by Medical Oncology at [facility]. Critical care time > 70 min spent on direct patient care. Admission and Anticipated Discharge Date Admission Date: October 08, 2019 Subjective Recheck for neutropenic fever and other problems. Patient seen in their room around 1050. Family visiting. Patient had a relatively good morning and spent some time out of bed in chair. At the time of my initial assessment around 1050, that the patient was napping and her family was visiting. Patient seemed to be a bit somnolent and had some mild dysarthria. Upon further evaluation, it became apparent that she had a dense left hemiparesis. Patient denied headache or visual changes. Stroke alert was called and patient was transferred to the ICU for further evaluation and management. Review of Systems: Constitutional- no fever. Cardiac- no chest pain. Pulmonary- no cough or SOB. GI- persistent diarrhea; last emesis 2 nights ago. - no urinary symptoms. Otherwise, as noted above. Physical Exam Constitutional: no acute distress ENMT: Mouth: no oral mucosal abnormality and no tongue abnormality Respiratory: no respiratory distress Auscultation: lungs clear to auscultation bilaterally Cardiovascular: Rate/Rhythm: regular rate and regular rhythm Heart Sounds: no gallop Vessels: no JVD Extremities: no calf tenderness and no edema Gastrointestinal (Abdomen): Inspection/Auscultation: normal bowel sounds; a bdomen not distended Percussion/Palpation: + abdomen tender (diffuse mild tenderness, no rebound) and abdomen soft; no guarding Musculoskeletal: Extremities: no cyanosis Skin: no rashes, warm and dry Neurologic: PERRL, EOMI ? left facial palsy mild dysarthria LUE and LLE flaccid left-sided neglect Results & Data ([facility]) Vital Signs (Past 12 Hours) Vital Signs Temp Pulse Pulse Resp BP BP Pulse Ox 10/13/19 18:00 36.3 C L 75 14 130/79 100 10/13/19 17:01 36.7 C 73 16 116/66 100 10/13/19 17:00 36.5 C 74 15 116/72 100 10/13/19 16:39 36.7 C 73 16 120/71 100 10/13/19 16:00 36.5 C 73 25 H 132/79 97 10/13/19 15:39 36.7 C 80 18 124/72 100 10/13/19 15:09 36.7 C 78 18 116/66 100 10/13/19 15:00 81 14 116/66 100 10/13/19 14:56 80 10/13/19 14:54 36.5 C 79 16 121/74 100 10/13/19 14:35 36.5 C 80 16 126/79 100 10/13/19 14:30 36.7 C 80 15 126/79 100 10/13/19 14:00 36.7 C 84 18 125/60 100 10/13/19 13:36 93 H 10/13/19 13:00 36.5 C 88 20 116/72 98 10/13/19 12:30 93 H 20 128/69 97 10/13/19 12:00 36.4 C L 88 16 114/65 97 10/13/19 11:45 90 22 119/64 98 10/13/19 11:06 36.9 C 92 H 18 111/70 94 Laboratory Results Laboratory Results - last 24 hr 10/13/19 10/13/19 10/13/19 05:27 05:27 10:58 WBC 5.00 RBC 2.70 L Hgb 8.5 L Hct 24.4 L MCV 90.4 MCH 31.5 MCHC 34.8 RDW Std Deviation 51.9 H RDW Coeff of Rajesh 15.8 H Plt Count 23 L* MPV Absolute Nucleated RBC 0.04 H Nucleated RBC % (auto) 0.8 Blood Smear Review PT INR APTT PTT Ratio Sodium 137 Potassium 3.2 L Chloride 107 Carbon Dioxide 23 Anion Gap 6.0 BUN 12 Creatinine 0.76 Est Cr Clr Drug Dosing 74.0 Est GFR ( Amer) 96.1 Est GFR (Non-Af Amer) 82.9 BUN/Creatinine Ratio 15.6 Glucose 94 POC Glucose Calcium 7.4 L Phosphorus 2.5 Magnesium 1.7 L Nasal Screen MRSA (PCR) Blood Type Cancelled Rho(D) Type Cancelled Antibody Screen Cancelled Crossmatch See Detail 10/13/19 10/13/19 10/13/19 11:46 11:46 13:30 WBC RBC Hgb Hct MCV MCH MCHC RDW Std Deviation RDW Coeff of Rajesh Plt Count MPV Absolute Nucleated RBC Nucleated RBC % (auto) Blood Smear Review PT 19.0 H INR 1.9 H APTT 37.4 H PTT Ratio 1.3 Sodium Potassium Chloride Carbon Dioxide Anion Gap BUN Creatinine Est Cr Clr Drug Dosing Est GFR ( Amer) Est GFR (Non-Af Amer) BUN/Creatinine Ratio Glucose POC Glucose 124 H Calcium Phosphorus Magnesium Nasal Screen MRSA (PCR) Blood Type AB Positive Rho(D) Type Antibody Screen NEGATIVE Crossmatch See Detail 10/13/19 10/13/19 10/13/19 18:06 18:44 18:44 WBC 12.03 H RBC 3.39 L Hgb 10.7 L Hct 30.4 L MCV 89.7 MCH 31.6 MCHC 35.2 RDW Std Deviation 49.5 H RDW Coeff of Rajesh 15.6 H Plt Count 29 L* MPV 11.9 H Absolute Nucleated RBC 0.11 H Nucleated RBC % (auto) 0.9 Blood Smear Review PT INR APTT PTT Ratio Sodium 136 Potassium 3.0 L Chloride 108 H Carbon Dioxide 21 Anion Gap 8.0 BUN 8 Creatinine 0.78 Est Cr Clr Drug Dosing 72.1 Est GFR ( Amer) 93.1 Est GFR (Non-Af Amer) 80.3 BUN/Creatinine Ratio 10.4 Glucose 114 H POC Glucose 106 H Calcium 7.3 L Phosphorus Magnesium Nasal Screen MRSA (PCR) Blood Type Rho(D) Type Antibody Screen Crossmatch 10/13/19 Unknown WBC RBC Hgb Hct MCV MCH MCHC RDW Std Deviation RDW Coeff of Rajesh Plt Count MPV Absolute Nucleated RBC Nucleated RBC % (auto) Blood Smear Review PT INR APTT PTT Ratio Sodium Potassium Chloride Carbon Dioxide Anion Gap BUN Creatinine Est Cr Clr Drug Dosing Est GFR ( Amer) Est GFR (Non-Af Amer) BUN/Creatinine Ratio Glucose POC Glucose Calcium Phosphorus Magnesium Nasal Screen MRSA (PCR) Negative Blood Type Rho(D) Type Antibody Screen Crossmatch Diagnostic Findings CT HEAD FINDINGS: No intra or extra-axial mass lesions are visualized. There is pneumocephalus within the right vertex. Gas lies either within the subarachnoid space or small veins. There is no midline shift. There is no acute hemorrhage. There are patchy white matter hypodensities likely on a small vessel basis. There is no evidence of pathologic ventricular dilatation. There is no evidence of acute sinusitis. The scan findings were reviewed with Dr. Dawson. IMPRESSION: 1. Unexplained pneumocephalus within the right vertex. The gas lies either within the subarachnoid space or small veins. 2. No acute hemorrhage. 3. The scan findings were personally reviewed with Dr. Dawson ACT 112: Negative or not required by law. Electronically signed by: Juan Saenz M.D. 10/13/2019 11:33 AM CTA HEAD FINDINGS: Animal Pathologist topogram: Right internal jugular Mediport. Anterior circulation: Intracranial portions of the internal carotid arteries patent to the level of the termini. Anterior cerebral arteries patent. Middle cerebral arteries patent. Anterior communicating artery patent. Posterior circulation: Codominant vertebral arteries. Intradural portions of the vertebral arteries patent. Posterior inferior cerebellar arteries patent. Basilar artery patent. Anterior inferior cerebellar arteries poorly visualized. Superior cerebellar arteries patent. Posterior cerebral arteries patent. Posterior communicating arteries patent. Dural venous sinuses: Patent. Other: Subarachnoid gas noted in the right frontal region near the vertex. This may be potentially intravascular. Calvarium intact. IMPRESSION: 1. No evidence of aneurysm, focal vessel occlusion, or significant stenosis of the intracranial arteries. 2. Pneumocephalus with subarachnoid gas in the right frontal region near the vertex. This may be potentially intravascular, which would be unexpected and potentially imply a right to left shunt. Other etiologies of pneumocephalus would be equally unexpected. Please see separately dictated CT head. ACT 112: Negative or not required by law. Electronically signed by: Luis Gray M.D. 10/13/2019 11:37 AM CTA NECK FINDINGS: Animal Pathologist topogram: Right internal jugular Mediport. Aortic arch: Normal three-vessel aortic arch with patent origins of the branch vessels. Innominate artery: Patent. Right subclavian artery: Patent. Right common carotid artery: Patent. Right internal and external carotid arteries: Focal irregularity of the proximal right internal carotid artery (series 6 image 248). This region demonstrates irregular beading with mild aneurysmal dilatation and minimal stenosis. There is lesser irregularity of the mid to distal portion focally (series 6 image 3 or 4). Left common carotid artery: Patent. Left internal and external carotid arteries: Irregularity of the mid internal carotid artery with multifocal mild aneurysmal outpouchings (series 6 images 257 and 262). Lesser degree of change noted in the distal portion. Left subclavian artery: Patent. Vertebral arteries: Codominant vertebral arteries. Origins and courses of the bilateral vertebral arteries patent. Other: Limited intracranial evaluation within normal limits. Multinodular thyroid. Mild degenerative changes of the cervical spine. Pleural parenchymal scarring at the apices, right greater than left. IMPRESSION: 1. Subtle irregular beaded appearance of the bilateral internal carotid arteries concerning for fibromuscular dysplasia. Differential considerations also include vasculitis or less likely atherosclerotic or traumatic aneurysms. 2. No focal vessel occlusion or dissection. ACT 112: Negative or not required by law. Electronically signed by: Luis Gray M.D. 10/13/2019 11:43 AM MRI BRAIN FINDINGS: Localizer images: Unremarkable. Bone marrow signal intensity within the calvarium within normal limits. Normal midline sagittal structures. Ventricles and sulci normal in size. No mass effect or midline shift. Restricted diffusion in a limited portion of the subcortical white matter and overlying marie matter of the posterior right frontal lobe near the vertex. This appears to involve a portion of the precentral gyrus. Associated T2/FLAIR hyperintensity of this region. Scattered punctate foci of susceptibility artifact in this region may correspond to foci of pneumocephalus evident on CT had. No extra-axial fluid collection. T2 skull base flow voids preserved. IMPRESSION: 1. Acute infarct in the posterior right frontal lobe involving a portion of the precentral gyrus. Associated T2/FLAIR signal abnormality suggesting an infarct at least 6 to 12 hours old. The report will be called/faxed according to standard departmental protocol for a critical finding. ACT 112: Negative or not required by law. Electronically signed by: Luis Gray M.D. 10/13/2019 2:11 PM
[2019-10-13] MEDS: MoRPHine SULFATE 4 MG/ML 1 ML CARP\\VIAL IV PRN (21:21)
[2019-10-13] MEDS: D5W AND LACTATED RINGERS 1,000 ML IV SCH (21:39)
[2019-10-14] MEDS: POTASSIUM CHLORIDE / WTR 10 MEQ/100 ML PLCT IV SCH ×2 (00:18→01:25)
[2019-10-14] MEDS: MoRPHine SULFATE 4 MG/ML 1 ML CARP\\VIAL IV PRN ×3 (02:32→18:19)
[2019-10-14] MEDS: PIPERACILLIN/TAZOBACTAM 3.375 GM in DEXTROSE 5% 100 ML IV SCH ×3 (02:40→20:20)
[2019-10-14 04:52] LABS: Mean Corpuscular Hgb Conc 35.4 g/dL (32-36); Nucleated RBC # (auto) 0.08 K/uL (0-0); Nucleated RBC % (auto) 0.5 %
[2019-10-14 05:22] LABS: BUN Creatinine Ratio 8.4 (10-20); Calcium 6.9 mg/dl (8.5-10.1); Creatinine Clr Calc Pharmacy 68.6 ml/min; Est GFR (African American) 87.6; Est GFR (Non-African American) 75.6; Magnesium 1.7 mg/dl (1.8-2.4); Potassium 3.3 mmol/L (3.5-5.1)
[2019-10-14 05:41] LABS: Hematocrit (blood only) 28.5 % (37-47); Hemoglobin 10.1 g/dL (12.0-16.0); Mean Corpuscular Hemoglobin 31.6 pg (25-34); Mean Corpuscular Volume 89.1 fL (80-100); Platelet Count 32 K/uL (130-400); RDW Coefficient of Variation 16.2 % (11.5-14.5); RDW Standard Deviation 51.8 fL (36.4-46.3); White Blood Count 13.98 K/uL (4.8-10.8)
[2019-10-14 05:45] LABS: Phosphorus 1.9 mg/dl (2.5-4.9)
[2019-10-14 05:51] LABS: ANC (manual) 9.16 K/uL (1.4-6.5); Dohle Bodies 2+; Echinocytes 1+; Eosinophils # (manual) 0.13 K/uL (0-0.5); Eosinophils % (manual) 0.9 %; Giant Platelets 1+; Lymphocytes # (manual) 2.03 K/uL (1.2-3.4); Lymphocytes % (manual) 14.5 %; Metamyelocytes # (manual) 0.13 K/uL (0-0); Metamyelocytes % (manual) 0.9 %; Monocytes # (manual) 2.17 K/uL (0.11-0.59); Monocytes % (manual) 15.5 %; Myelocytes # (manual) 0.38 K/uL (0-0); Myelocytes % (manual) 2.7 %; Neutrophils # (manual) 9.16 K/uL (1.4-6.5); Neutrophils % (manual) 65.5 %; Platelet Estimate SIGNIFIC DECREASED (Normal); Polychromasia 1+
[2019-10-14] MEDS: D5W AND LACTATED RINGERS 1,000 ML IV SCH (05:56)
[2019-10-14 06:05] LABS: Estimated Average Glucose 148 mg/dl; Hemoglobin A1C 6.8 % (4.5-5.6)
[2019-10-14] MEDS: [UNRECOGNIZED DRUG - OTHER] IV SCH ×3 (06:33→20:20)
[2019-10-14] MEDS: POTASSIUM CHLORIDE IV SCH ×3 (06:33→20:20)
[2019-10-14] MEDS: POTASSIUM PHOSPHATE IV SCH ×3 (06:33→20:20)
[2019-10-14] MEDS: MAGNESIUM SULFATE IV SCH ×3 (06:33→20:20)
[2019-10-14] MEDS ORDERED: VANCOMYCIN TROUGH ONE (07:30)
[2019-10-14] MEDS: VANCOMYCIN HCL 1,000 MG in SODIUM CHLORIDE 0.9% 250 ML IV SCH (09:29)
[2019-10-14] MEDS: PANTOprazole 40 MG in SYRINGE 0 ML IV SCH ×2 (09:29→20:20)
--- NOTE | 2019-10-14 09:35 | Critical Care Progress Note ---
Date of Service October 14, 2019 Assessment & Plan (1) S/P admission to ICU (intensive care unit): Patient with continued left hemineglect. Very significant strength deficits. MRI reviewed. Neurology on board. Echocardiogram results pending. She has a history of pancreatic cancer. Followed by palliative care. Followed by heme-onc at [facility]. Stable hemodynamically and from an airway standpoint. Followed by speech currently. Continue diarrhea likely related to neutropenic colitis versus mucositis. No obvious infectious etiology at this time. Do not necessarily think she needs vancomycin and Zosyn. Safe to transfer to floor. (2) Stroke: (3) Severe malnutrition: (4) Diarrhea: Subjective Patient laying in bed. No apparent distress. Having numerous bouts of diarrhea overnight. Still unable to move her left arm or leg. No acute events overnight. No fevers. No chest pain. Physical Exam Constitutional: Patient laying in bed. Frail-appearing. Eyes: PERRL, conjunctivae normal, anicteric sclerae ENMT: external ear and nose normal, oropharynx normal Neck: normal visual inspection Respiratory: normal respiratory effort, lungs clear to auscultation Cardiovascular: RRR, no murmur, no edema Gastrointestinal (Abdomen): normal bowel sounds, soft, nontender, no hepatosplenomegaly Musculoskeletal: no cyanosis or clubbing, extremities motor strength 5/5 Skin: no rashes, warm and dry Neurologic: Dense left-sided matteo-plegia. Upward Babinski on the left. Facial droop on the left. Psychiatric: A+Ox3, euthymic affect Results & Data ([facility]) Vital Signs (Past 12 Hours) Vital Signs Temp Pulse Resp BP Pulse Ox 10/14/19 07:21 85 10/14/19 06:13 84 16 109/60 98 10/14/19 05:50 83 16 109/60 99 10/14/19 05:00 82 18 110/61 10/14/19 04:00 83 16 104/60 98 10/14/19 03:00 82 18 116/76 100 10/14/19 02:00 91 H 16 112/63 10/14/19 01:00 83 16 112/63 99 10/14/19 00:00 98.4 F 80 20 113/66 99 10/13/19 23:00 81 18 111/67 99 10/13/19 22:00 80 20 113/67 100 Coding Level of Care Code 55952 Subseq Hosp Care Lvl 2 Diagnoses S/P admission to ICU (intensive care unit) Stroke I63.9 Severe malnutrition E43 Diarrhea R19.7
[2019-10-14] MEDS ORDERED: [UNRECOGNIZED DRUG - OTHER] SL PRN (11:05)
--- NOTE | 2019-10-14 11:13 | Palliative Care Consultation ---
Date of Consultation October 14, 2019 Assessment & Plan (1) Goals of care, counseling/discussion: -64 year old female patient with newly diagnosed pancreatic cancer in June 2019, currently undergoing chemotherapy FOLFIRINOX at [facility], biliary duct stent, known lumbar spine hemangioma, presented to the hospital six days ago with pancytopenia and weakness related to chemo. Patient last had chemotherapy that finished on 10/01, next planned dose was for tomorrow 10/14. Patient was actually improving as far as her presenting symptoms, but she unfortunately had acute neurologic changes yesterday with left sided facial droop and left sided hemiplegia. CT head showed air embolic stroke. MRI brain was then completed which did in fact show right MCA distribution acute infarct. Neurology is consulted. Given patient's history of pancreatic cancer and now this acute stroke, palliative care is consulted to discuss goals of care. -Of note, palliative care was consulted back in August after patient's first dose of chemotherapy for supportive care. At that time, I discussed patient's condition at length with her, her Ash, and one of her sisters. The intent of the treatment for her pancreatic cancer is actually aimed at "cure" rather than palliation. Patient's tumor is resectable, but the plan was to shrink it with chemo first. Last CT abdomen/pelvis did show response to treatment with less attenuation to the pancreatic mass. There is no known metastasis of this disease. -Met today with patient and one of her sisters in room 110. Patient is awake and alert, oriented x4. Does have noticeable left facial droop. Left arm and leg are flaccid. -Patient states that prior to this stroke, she was starting to feel better. She does admit to the fact that this cancer treatment has been extremely hard on her, mentally and physically. Prior to the chemotherapy starting, patient was a very active and healthy woman. 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 She lives with her , Ash. -Patient is obviously worried and discouraged by this new acute stroke, but she is very much so wanting to push forward. Her goal is to get to rehab after hospitalization and see what kind of rehab potential there is. She plans to fight and get well enough to continue with chemotherapy. She still is hoping that this cancer can be resected. -Patient did flat out ask, "Am I at the end of life?" I stated that she currently is not in imminent danger of , but of course this stroke certainly complicates her course and is going to require time to possibly recover from. I told her that myself and the other providers will certain be honest with her and inform her of any concerning findings that would indicate that she is nearing the end of life. She was appreciative and said, "Thank you. That's all I ask, just please be honest with me." Patient's sister was tearful, but provided a lot of support. I reminded patient that at any point that she felt like she did not want to continue with aggressive care, all she has to do is inform her care team. She verbalized understanding but said, "At this point, I still want to fight." -As far as pain, patient continues to have the same right abdominal pain that radiates to her back/flank. It is well-controlled at home with Oxy 20mg BID and once daily dosing of medical marijuana. No changes to pain meds at this time. -Patient was seen by speech therapy-- swallowing okay and is ordered full liquid diet until we are sure she's not having nausea/vomiting. -We will continue to follow throughout hospitalization. (2) Diarrhea: (3) Stroke: (4) Pancreatic cancer: Supervising Physician Co-Signing Physician Notes Patient is known to our service from admission in August. Chart reviewed, patient examined, multiple family at bedside. Collaborated with MARIBEL Garcia PE: Patient awake and alert, no acute distress HEENT: EOMI, hearing within normal limits Respirations: Unlabored CV: Regular rate, no edema Abdomen: Soft, nontender Neuro: Dense left hemiparesis, left facial droop, speech clear and understandable Psych: Bright mood. Patient with pneumobilia on CT scan, positive Klebsiella UTI, pain well controlled on oxycodone twice daily, bilirubin improved. Agree with above note, assessment and plan as per MARIBEL Garcia-we will continue to follow and assist patient and family with medical decision making. History of Present Illness Attending Physician: Marco A Dawson MD History of Present Illness This 64 year old female patient with newly diagnosed pancreatic cancer in June 2019, currently undergoing chemotherapy FOLFIRINOX at [facility], biliary duct stent, known lumbar spine hemangioma, presented to the hospital six days ago with pancytopenia and weakness related to chemo. Patient last had chemotherapy that finished on 10/01, next planned dose was for tomorrow 10/14. Patient was actually improving as far as her presenting symptoms, but she unfortunately had acute neurologic changes yesterday with left sided facial droop and left sided hemiplegia. CT head showed air embolic stroke. MRI brain was then completed which did in fact show right MCA distribution acute infarct. Neurology is consulted. Given patient's history of pancreatic cancer and now this acute stroke, palliative care is consulted to discuss goals of care. Thank you kindly for this consult. Palliative care team will follow as needed. Allergies Allergy/AdvReac Type Severity Reaction Status Date / Time codeine Allergy Unknown Unverified 10/08/19 14:15 Home Medications Home Medications Medication Instructions Recorded Confirmed Type docusate sodium [Colace] 100 mg PO BID 08/25/19 10/08/19 History oxycodone [OxyContin] 20 mg PO Q12H PRN 08/25/19 10/08/19 History senna 8.6 mg PO HS PRN 08/25/19 10/08/19 History Neulasta 0 mg SUBCUT UD 10/04/19 10/08/19 History Prilosec OTC 20 mg PO DAILY 10/04/19 10/08/19 History loratadine [Claritin] 10 mg PO DAILY 10/04/19 10/08/19 History [id number]-[id number]-ncgubnx [Creon] 1 cap PO TIDM 10/08/19 10/08/19 History ondansetron HCl [Zofran] 8 mg PO Q6H PRN 10/08/19 10/08/19 History prochlorperazine maleate 5 mg PO BID PRN 10/08/19 10/08/19 History [Compazine] simethicone 125 mg PO BID PRN 10/08/19 10/08/19 History Patient History Medical History (Updated 10/14/19 @ 13:25 by MARIBEL Patel) Diarrhea Hemiplegia affecting left dominant side Pancreatic cancer Pneumocephalus S/P admission to ICU (intensive care unit) Surgical History No pertinent past surgical history Family History Other No pertinent family history Social History Preferred Language: Portuguese Communication Ability: Effective 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 Beliefs That Will Affect Care: None marital status: Current Living Situation: Spouse Feels Safe at Home: Yes Safety Concerns: Feels Safe At This Time Smoking Status: Never smoker Do You Dip or Chew Tobacco: No ; Second Hand Exposure: No ; Hx Alcohol Use: No Hx Substance Use: No Review of Systems Review of Systems: Const: + left sided weakness ENMT: No dysphagia Resp: No SOB, no cough Cardio: No chest pain, + BL ankle edema GI: + abdominal pain but currently controlled, no N/V MS: No musculoskeletal pain Neuro: No confusion; no aphasia; no visual changes Psych: No anxiety; + feeling "down" about the situation Physical Exam Constitutional: + ill appearing and + frail appearing; no acute distress Respiratory: normal respiratory effort, lungs clear to auscultation Cardiovascular: Rate/Rhythm: regular rate and regular rhythm Extremities: + edema (+2 pitting edema to BL ankles) Gastrointestinal (Abdomen): Inspection/Auscultation: normal bowel sounds Percussion/Palpation: abdomen soft; abdomen nontender Skin: no rashes, warm and dry Neurologic: awake; + does not move all extremities (left sided hemiplegia) Cranial Nerves: + abnormal facial strength (left sided facial droop) Psychiatric: Orientation: alert and oriented x 3 Insight: good insight Judgement: good judgement Results & Data Vital Signs (Past 12 Hours) Vital Signs Temp Pulse Resp BP Pulse Ox 10/14/19 11:00 94 H 21 97 10/14/19 10:00 36.5 C 85 13 110/68 96 10/14/19 09:00 83 13 109/64 96 10/14/19 08:00 81 14 114/61 98 10/14/19 07:21 85 10/14/19 07:00 36.7 C 84 16 108/62 98 10/14/19 06:13 84 16 109/60 98 10/14/19 05:50 83 16 109/60 99 10/14/19 05:00 82 18 110/61 10/14/19 04:00 83 16 104/60 98 03/10/20 03:00 82 18 116/76 100 10/14/19 02:00 91 H 16 112/63 10/14/19 01:00 83 16 112/63 99 10/14/19 00:00 36.9 C 80 20 113/66 99 Coding Level of Care Code 59338 Inpt Consult Level 3 Diagnoses Goals of care, counseling/discussion Z71.89 Diarrhea R19.7 Stroke I63.9 Pancreatic cancer C25.9 Time Spent (min) 70 Time Spent Midlevel 70 minutes with >50% of the time spent at bedside with patient and family discussing condition and GOC.
[2019-10-14] MEDS: LORazepam 0.5 MG/1 ML VIAL IV PRN (11:40)
--- NOTE | 2019-10-14 14:23 | Neurology Progress Note ---
Date of Service October 14, 2019 Assessment & Plan (1) Hemiplegia affecting left dominant side: 1. CTA head neck - no occlusion or significant stenosis 2. CT head- pneumocephalus right hemisphere 3. left sided dense matteo plegia 4. oncology for pancreatic CA treatment 5. ICU team medical management 6. MRI brain- acute infarct posterior right frontal lobe. air embolic stroke 7. TTE +PFO 8. PT/OT for discharge needs 9. would not start antiplt therapy on this patient as usually protocol would suggest due to plt count 10. palliative medicine may be helpful for family needs and direction of care. no further neurologist intervention at this time. will be available for questions concerns. (2) Pneumocephalus: (3) Severe malnutrition: (4) Pancreatic cancer: Admission and Anticipated Discharge Date Admission Date: October 08, 2019 Supervising Physician Co-Signing Physician Notes Patient was seen and examined. Left sided remains flaccid. Left facial droop. Some sensory neglect on left side to light touch. Discussed with family. TTE showed PFO. Paradoxical Air Embolism from a Patent Foramen Ovale has been reported. Agree with continue supportive management. Please call me with any further questions or concerns. Kenya Bundy is a 64 year old female who presents from her oncologist office on 10/08/2019 for evaluation of abdominal pain, nausea, vomiting, diarrhea. She has known pancreatic cancer currently undergoing chemotherapy has had 4 rounds. She was admitted [facility] [place] through 10/05 for near syncope and orthostasis due to dehydration in the setting of chemotherapy. She returned home and developed N,V, abdominal pain, diarrhea along with lightheadedness and dizziness however no syncopal event. This am she was examined by the primary team and she had left facial weakness, and flaccid on the left arm and leg. she states she did not have a headache with the symptoms and was a sudden onset. A stroke alert was called and a CT head showed pneumocephalus. Today she is sitting up and eating lunch. She states she understands it was a stroke and she has a PFO. denies CP, SOB, vision changes, swallowing issue, new bowel or bladder issues. 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 unable to lift leg, can not wiggle toes oriented to self, place, time Results & Data ([facility]) Vital Signs (Past 12 Hours) Vital Signs Temp Pulse Pulse Resp BP BP Pulse Ox 10/14/19 13:32 37.1 C 85 16 112/68 97 10/14/19 12:00 36.5 C 86 12 102/63 96 10/14/19 11:00 94 H 21 97 10/14/19 10:00 36.5 C 85 13 110/68 96 10/14/19 09:00 83 13 109/64 96 10/14/19 08:00 81 14 114/61 98 10/14/19 07:21 85 10/14/19 07:00 36.7 C 84 16 108/62 98 10/14/19 06:13 84 16 109/60 98 10/14/19 05:50 83 16 109/60 99 10/14/19 05:00 82 18 110/61 10/14/19 04:00 83 16 104/60 98 10/14/19 03:00 82 18 116/76 100 Laboratory Results Abnormal lab results 10/13/19 10/13/19 10/13/19 Range/Units 10:58 11:46 18:06 WBC (4.8-10.8) K/uL RBC (4.2-5.4) M/uL Hgb (12.0-16.0) g/dL Hct (37-47) % RDW Std Deviation (36.4-46.3) fL RDW Coeff of Rajesh (11.5-14.5) % Plt Count (130-400) K/uL MPV (7.4-10.4) fL Absolute Nucleated RBC (0-0) K/uL Neutrophils # (Manual) (1.4-6.5) K/uL Total Absolute Neuts (1.4-6.5) K/uL Monocytes # (Manual) (0.11-0.59) K/uL Metamyelocytes # (Man) (0-0) K/uL Myelocytes # (Manual) (0-0) K/uL Sodium (136-145) mmol/L Potassium (3.5-5.1) mmol/L Chloride (98-107) mmol/L BUN/Creatinine Ratio (-20) Glucose (70-99) mg/dl POC Glucose 106 H (70-99) mg/dl Hemoglobin A1c (4.5-5.6) % Calcium (8.5-10.1) mg/dl Phosphorus (2.5-4.9) mg/dl Magnesium (1.8-2.4) mg/dl Crossmatch See Detail See Detail 10/13/19 10/13/19 10/14/19 Range/Units 18:44 18:44 04:29 WBC 12.03 H 13.98 H (4.8-10.8) K/uL RBC 3.39 L 3.20 L (4.2-5.4) M/uL Hgb 10.7 L 10.1 L (12.0-16.0) g/dL Hct 30.4 L 28.5 L (37-47) % RDW Std Deviation 49.5 H 51.8 H (36.4-46.3) fL RDW Coeff of Rajesh 15.6 H 16.2 H (11.5-14.5) % Plt Count 29 L* 32 L (130-400) K/uL MPV 11.9 H (7.4-10.4) fL Absolute Nucleated RBC 0.11 H 0.08 H (0-0) K/uL Neutrophils # (Manual) 9.16 H (1.4-6.5) K/uL Total Absolute Neuts 9.16 H (1.4-6.5) K/uL Monocytes # (Manual) 2.17 H (0.11-0.59) K/uL Metamyelocytes # (Man) 0.13 H (0-0) K/uL Myelocytes # (Manual) 0.38 H (0-0) K/uL Sodium (136-145) mmol/L Potassium 3.0 L (3.5-5.1) mmol/L Chloride 108 H (98-107) mmol/L BUN/Creatinine Ratio (-20) Glucose 114 H (70-99) mg/dl POC Glucose (70-99) mg/dl Hemoglobin A1c (4.5-5.6) % Calcium 7.3 L (8.5-10.1) mg/dl Phosphorus (2.5-4.9) mg/dl Magnesium (1.8-2.4) mg/dl Crossmatch 10/14/19 10/14/19 Range/Units 04:29 04:29 WBC (4.8-10.8) K/uL RBC (4.2-5.4) M/uL Hgb (12.0-16.0) g/dL Hct (37-47) % RDW Std Deviation (36.4-46.3) fL RDW Coeff of Rajesh (11.5-14.5) % Plt Count (130-400) K/uL MPV (7.4-10.4) fL Absolute Nucleated RBC (0-0) K/uL Neutrophils # (Manual) (1.4-6.5) K/uL Total Absolute Neuts (1.4-6.5) K/uL Monocytes # (Manual) (0.11-0.59) K/uL Metamyelocytes # (Man) (0-0) K/uL Myelocytes # (Manual) (0-0) K/uL Sodium 135 L (136-145) mmol/L Potassium 3.3 L (3.5-5.1) mmol/L Chloride 109 H (98-107) mmol/L BUN/Creatinine Ratio 8.4 L (10-20) Glucose 132 H (70-99) mg/dl POC Glucose (70-99) mg/dl Hemoglobin A1c 6.8 H (4.5-5.6) % Calcium 6.9 L (8.5-10.1) mg/dl Phosphorus 1.9 L (2.5-4.9) mg/dl Magnesium 1.7 L (1.8-2.4) mg/dl Crossmatch Diagnostic Findings CXR-Right internal jugular Mediport terminates at the superior cavoatrial junction. Cardiomediastinal silhouette otherwise normal. Several overlying external leads project over the right hemithorax. No focal opacity. No large effusion or pneumothorax. Prominent nipple shadow at the right lung base. Osseous structures normal. Upper abdomen normal.
[2019-10-14] MEDS: DIPHENOXYLATE/ATROPINE 2.5/0.025MG TAB PO SCH ×2 (15:25→20:38)
[2019-10-14] MEDS: ZOLPIDEM TARTRATE 5 MG TAB PO PRN (20:20)
--- NOTE | 2019-10-14 21:08 | Hospitalist Progress Note ---
Date of Service October 14, 2019 Assessment & Plan (1) Stroke: Sudden onset of left hemiparesis morning of 10/12. Stroke alert called. Stat CT ordered and patient was transferred to ICU. Initial concern was possibility of a hemorrhagic stroke given patient's thrombocytopenia, but there was no intracranial hemorrhage. Pneumocephalus was noted within the right vertex / subarachnoid space. No large vessel occlusion noted on CT of head neck. Tele-stroke consultation with [facility] requested and case discussed with Neurology and Neurosurgery. Thrombolytic therapy contraindicated due to thrombocytopenia and recent UGI bleed and, furthermore, probably not indicated given the nature of the event. No indication for neurointerventional or neurosurgical intervention. MRI demonstrated acute infarct in the posterior right frontal lobe in the region of the previously noted pneumocephalus. Case was discussed further with Neurology at [facility] as well as Neurology at [facility]. Paradoxical air embolus with right to left shunt was considered. Echo with bubble study showed patent foramen ovale. Etiology of suspected air embolus unclear. Nursing inspected IV tubing and connections and all appeared to be intact. Ongoing management per stroke protocol. Aspirin therapy contraindicated because of severe thrombocytopenia; also not indicated due to nature of neurologic event. PT/OT/BUNG SEWER evaluations requested. Seen by BUNG SEWER this morning- did well with bedside swallowing evaluation. (2) Neutropenic fever: Neutropenic fever associated with chemotherapy at time of admission. No cough or infiltrates on chest x-ray. UA showed leukocyte esterase, few WBC's, + bacteria. Urine culture grew Klebsiella pneumoniae. Possible biliary source as discussed below. Having loose stools. Possible colitis noted on CT scan. Stool negative for C. difficile. Checking stools for routine enteric pathogens- negative so far. Received intravenous vancomycin and piperacillin/tazobactam. DC vancomycin and continue piperacillin / tazo to cover biliary and urinary tracts. (3) Urinary tract infection: UA showed leukocyte esterase, few WBC's, + bacteria. Urine culture growing Klebsiella pneumoniae. UTI- (present on admission) (4) Elevated LFTs: LFTs elevated at time of admission. CT demonstrated mild thickening of gallbladder wall, gas within the gallbladder lumen, mild pericholecystic stranding. Ultrasound demonstrated borderline gallbladder wall thickening with a few tiny stones and sludge, pneumobilia. Status post ERCP with stent placement on 07/04/2019 and then repeat ERCP for stent change on 08/28/2019. GI consulted. Repeat ERCP not recommended at this time. LFT's improved: Total bilirubin 2.3-->1.1 AST 60 --> 8 ALT 114 --> 44 AP 259 --> 118 Continue antibiotics for possible cholecystitis or cholangitis. (5) Acute upper GI bleed: Hematemesis with moderate amounts of gross blood. Receiving IV pantoprazole. Hemoglobin falling as discussed below. Transfuse as necessary to maintain adequate H&H; target hemoglobin at least greater than 8. GI consulted. Endoscopy deferred in light of pancytopenia and other issues. (6) Anemia: Hemoglobin at time of admission 10.7 and fell as low as 7.8. Anemia probably secondary to combination of chemotherapy as well as acute blood loss anemia secondary to upper GI bleed. Transfuse to maintain hemoglobin at least greater than 10 in light of acute stroke. Received 2 units of pRBC's. Hgb today = 10.1. Follow. (7) Neutropenia: Received Neulasta prior to admission. White count at time of admission was 320 and fell as low as 100. White count this morning = 13,000.. Monitor WBC with differential. (8) Thrombocytopenia: Platelet count at time of admission 34,000 and fell as low as 10,000. UGI bleeding early in hospital course- resolved. Has received 2 bags pheresed irradiated platelets. Platelet count this morning = 32,000. Transfuse platelets as necessary. (9) Pancreatic cancer: Per Hematology/Oncology. (10) Hypokalemia: Serum potassium as low as 3.1. Received replacement. K this morning = 3.3. Replace. Follow. (11) Hypomagnesemia: Magnesium as low as 1.7. Received replacement. Mg today = 1.7. Replace. Follow. (12) Hypophosphatemia: Serum phosphorus as low as 1.2. Received replacement. Phos this morning 1.9.. Replace. Follow. (13) DVT prophylaxis: No anticoagulants secondary to upper GI bleeding and thrombocytopenia. SCDs. Ambulate. (14) Severe malnutrition: 15 pound weight loss since August. Underlying malignancy. Poor p.o. intake due to GI symptoms. Boost Breeze ordered. Seen by Nutrition. Severe protein calorie malnutrition. Continue diet as tolerated and supplements. Consider TPN or enteral nutritional support. (15) Diarrhea: CT suggested colitis. Stool negative for C. difficile. Stool culture for routine enteric pathogens negative. Diarrhea could be secondary to chemo. Start Lomotil. (16) Discharge planning issues: Discharge disposition to be determined. Local Medical Oncology follow-up with Dr. Ortiz Torres. Also followed by Medical Oncology at [facility]. Admission and Anticipated Discharge Date Admission Date: October 08, 2019 Subjective Recheck for neutropenic fever and other problems. Patient seen in their room around 1000. Family visiting. No new neurologic events. Persistent dense left hemiparesis. No other neuro symptoms. No headache. Review of Systems: Constitutional- no fever. Cardiac- no chest pain. Pulmonary- no cough or SOB. GI- persistent diarrhea; last emesis 3 nights ago. - no urinary symptoms. Otherwise, as noted above. Physical Exam Constitutional: no acute distress ENMT: Mouth: no oral mucosal abnormality and no tongue abnormality Respiratory: no respiratory distress Auscultation: lungs clear to auscult ation bilaterally Cardiovascular: Rate/Rhythm: regular rate and regular rhythm Heart Sounds: no gallop Vessels: no JVD Extremities: no calf tenderness and no edema Gastrointestinal (Abdomen): Inspection/Auscultation: normal bowel sounds; abdomen not distended Percussion/Palpation: abdomen soft; abdomen nontender Musculoskeletal: Extremities: no cyanosis Skin: no rashes, warm and dry Neurologic: PERRL, EOMI mild left facial palsy no dysarthria or aphasia LUE & LLE motor strength 0/5 left plantar reflex upgoing Psychiatric: Orientation: alert and oriented x 3 Results & Data ([facility]) Vital Signs (Past 12 Hours) Vital Signs Temp Pulse Pulse Resp BP BP Pulse Ox 10/14/19 19:00 36.7 C 91 H 18 111/71 97 10/14/19 15:20 82 10/14/19 13:32 37.1 C 85 16 112/68 97 10/14/19 12:00 36.5 C 86 12 102/63 96 10/14/19 11:00 94 H 21 97 10/14/19 10:00 36.5 C 85 13 110/68 96 Laboratory Results 10/14/19 04:29 10/14/19 04:29
[2019-10-14 22:02] LABS: BUN Creatinine Ratio 5.9 (10-20); Calcium 7.3 mg/dl (8.5-10.1); Est GFR (African American) 96.1; Est GFR (Non-African American) 82.9; Magnesium 2.2 mg/dl (1.8-2.4); Phosphorus 3.4 mg/dl (2.5-4.9); Potassium 3.8 mmol/L (3.5-5.1)
[2019-10-15] MEDS ORDERED: VANCOMYCIN HCL 1,000 MG in SODIUM CHLORIDE 0.9% 250 ML IV SCH (00:40)
[2019-10-15] MEDS: PIPERACILLIN/TAZOBACTAM 3.375 GM in DEXTROSE 5% 100 ML IV SCH ×3 (04:50→18:48)
[2019-10-15 06:04] LABS: Hematocrit (blood only) 33.9 % (37-47); Hemoglobin 11.7 g/dL (12.0-16.0); Mean Corpuscular Hemoglobin 31.1 pg (25-34); Mean Corpuscular Hgb Conc 34.5 g/dL (32-36); Mean Corpuscular Volume 90.2 fL (80-100); Nucleated RBC # (auto) 0.07 K/uL (0-0); Nucleated RBC % (auto) 0.4 %; RDW Coefficient of Variation 17.3 % (11.5-14.5); Red Blood Count 3.76 M/uL (4.2-5.4); White Blood Count 19.05 K/uL (4.8-10.8)
[2019-10-15 06:30] LABS: Mean Platelet Volume 11.1 fL (7.4-10.4); Platelet Count 47 K/uL (130-400)
[2019-10-15 06:33] LABS: Albumin Level 1.6 gm/dl (3.4-5.0); BUN Creatinine Ratio 5.3 (10-20); Bilirubin Direct 0.2 mg/dl (0-0.2); Calcium 7.5 mg/dl (8.5-10.1); Creatinine Clr Calc Pharmacy 72.6 ml/min; Est GFR (African American) 91.7; Est GFR (Non-African American) 79.1; Magnesium 2.2 mg/dl (1.8-2.4); Potassium 3.6 mmol/L (3.5-5.1)
[2019-10-15 06:37] LABS: Albumin Globulin Ratio 0.6 (0.9-2); Bilirubin,Total 0.7 mg/dl (0.2-1); Globulin 2.8 gm/dl (2.5-4.0); Phosphorus 2.7 mg/dl (2.5-4.9); Total Protein 4.4 gm/dl (6.4-8.2)
[2019-10-15 07:02] LABS: ANC (manual) 14.71 K/uL (1.4-6.5); Dohle Bodies 1+; Lymphocytes % (manual) 2.6 %; Metamyelocytes # (manual) 0.34 K/uL (0-0); Metamyelocytes % (manual) 1.8 %; Monocytes # (manual) 3.33 K/uL (0.11-0.59); Monocytes % (manual) 17.5 %; Myelocytes # (manual) 0.17 K/uL (0-0); Myelocytes % (manual) 0.9 %; Neutrophils # (manual) 14.71 K/uL (1.4-6.5); Neutrophils % (manual) 77.2 %; Toxic Granulation 1+
[2019-10-15] MEDS: DIPHENOXYLATE/ATROPINE 2.5/0.025MG TAB PO SCH ×3 (08:21→21:03)
[2019-10-15] MEDS: PANTOprazole 40 MG in SYRINGE 0 ML IV SCH (08:21)
--- NOTE | 2019-10-15 10:40 | Cardiology Consultation ---
Date of Consultation October 15, 2019 Assessment & Plan (1) Patent foramen ovale: (2) Stroke: (3) Pneumocephalus: (4) Hemiplegia affecting left dominant side: (5) Pancreatic cancer: (6) Pancytopenia: I had a long discussion with the patient and her family today. I explained the anatomy of a patent foramen ovale and its implication regarding thrombotic stroke. I indicated to them that there are some patent foramen ovale's which are high risk and others, which are the majority, are low risk in regard to embolic blood clots. I believe after reviewing the patient's echocardiogram that she has a low risk patent foramen ovale. She does have a chemotherapy port in place which is being utilized and there is no doubt that during access of that line she had an air embolism injected which then crossed the PFO resulting in an air embolism stroke. I do not believe a closure device is indicated, as the risk versus benefit to the patient and her current state would not favor this procedure. I would recommend a filter being placed on any IV lines or chemotherapy to prevent air from entering her chemotherapy port is a better answer to this situation at this time. If she has an additional event either thrombotic or additional air embolism then we can reconsider potential for closure device if the patient is stable enough to go through a procedure. After discussing the above with the patient and her family we did a shared decision making process and they are agreeable to the above. History of Present Illness Attending Physician: Christiano Paulino MD History of Present Illness This is a 64-year-old female who is currently receiving treatment for pancreatic cancer. She has a port in to deliver her chemotherapy. She was admitted from her oncologist's office with nausea vomiting and dehydration postchemotherapy. The patient was recovering and then had sudden left-sided weakness consistent with a stroke. CT of the brain indicates air embolism which has resulted in a stroke. Her echocardiogram is essentially unremarkable except for a micro cavitation study that shows a patent foramen ovale. I reviewed this study and I do not believe it has a high risk for thrombotic emboli as it does not have the characteristics such as an associated atrial septal aneurysm or large amount of bubbles crossing the septum during the study. The interatrial septum otherwise appears to be intact with no evidence of ASD. She has no previous cardiac history. Allergies Allergy/AdvReac Type Severity Reaction Status Date / Time codeine Allergy Unknown Unverified 10/08/19 14:15 Home Medications Home Medications Medication Instructions Recorded Confirmed Type docusate sodium [Colace] 100 mg PO BID 08/25/19 10/08/19 History oxycodone [OxyContin] 20 mg PO Q12H PRN 08/25/19 10/08/19 History senna 8.6 mg PO HS PRN 08/25/19 10/08/19 History Neulasta 0 mg SUBCUT UD 10/04/19 10/08/19 History Prilosec OTC 20 mg PO DAILY 10/04/19 10/08/19 History loratadine [Claritin] 10 mg PO DAILY 10/04/19 10/08/19 History [id number] [Creon] 1 cap PO TIDM 10/08/19 10/08/19 History ondansetron HCl [Zofran] 8 mg PO Q6H PRN 10/08/19 10/08/19 History prochlorperazine maleate 5 mg PO BID PRN 10/08/19 10/08/19 History [Compazine] simethicone 125 mg PO BID PRN 10/08/19 10/08/19 History Patient History Medical History Diarrhea Hemiplegia affecting left dominant side Pancreatic cancer Patent foramen ovale Pneumocephalus S/P admission to ICU (intensive care unit) Surgical History No pertinent past surgical history Family History Other No pertinent family history Social History Preferred Language: Vietnamese Communication Ability: Effective Lamp Cleaner Required: No Beliefs That Will Affect Care: None marital status: Current Living Situation: Spouse Feels Safe at Home: Yes Safety Concerns: Feels Safe At This Time Smoking Status: Never smoker Do You Dip or Chew Tobacco: No ; Second Hand Exposure: No ; Hx Alcohol Use: No Hx Substance Use: No Review of Systems Review of Systems: All systems reviewed & are unremarkable except as noted in HPI & below Nothing additional to add. Physical Exam Physical Exam: General: no acute distress and stated age Head: normocephalic, no masses, lesions, tenderness or abnormalities Eyes: conjunctiva are pink and non-injected, sclera clear Neck: supple, no adenopathy, no bruits, normal jugular venous pulse, no hepatojugular reflux Chest: normal shape and normal respiratory effort Lungs: clear to auscultation and percussion Cardiac Exam: - regular rate & rhythm, no murmurs gallops or rubs - normal S1, normal S2 Pulses: 2(+) throughout Abdomen: abdomen soft, non-tender, no abnormal masses and no hepatosplenomegaly Musculoskeletal: no gait disturbance, no joint inflammation, no deforming arthritis Extremities: no edema and no cyanosis Neuro: grossly normal exam Results & Data ([facility]) Vital Signs (Past 12 Hours) Vital Signs Temp Pulse Pulse Resp BP Pulse Ox 10/15/19 07:57 90 10/15/19 07:33 36.8 C 93 H 18 113/77 98 10/15/19 05:16 36.8 C 99 H 18 101/65 96 10/14/19 22:52 37.3 C 85 18 113/75 96 Laboratory Results Laboratory Results - last 24 hr 10/14/19 10/15/19 10/15/19 21:23 05:47 05:47 WBC 19.05 H RBC 3.76 L Hgb 11.7 L Hct 33.9 L MCV 90.2 MCH 31.1 MCHC 34.5 RDW Std Deviation 55.0 H RDW Coeff of Rajesh 17.3 H Plt Count 47 L MPV 11.1 H Absolute Nucleated RBC 0.07 H Nucleated RBC % (auto) 0.4 Neutrophils % (Manual) 77.2 Lymphocytes % (Manual) 2.6 Monocytes % (Manual) 17.5 Metamyelocytes % (Man) 1.8 Myelocytes % (Man) 0.9 Neutrophils # (Manual) 14.71 H Total Absolute Neuts 14.71 H Lymphocytes # (Manual) 0.50 L Monocytes # (Manual) 3.33 H Metamyelocytes # (Man) 0.34 H Myelocytes # (Manual) 0.17 H Toxic Granulation 1+ Dohle Bodies 1+ Sodium 136 137 Potassium 3.8 D 3.6 Chloride 108 H 108 H Carbon Dioxide 22 23 Anion Gap 6.0 6.0 BUN 5 L 4 L Creatinine 0.76 0.79 Est Cr Clr Drug Dosing 74.0 72.6 Est GFR ( Amer) 96.1 91.7 Est GFR (Non-Af Amer) 82.9 79.1 BUN/Creatinine Ratio 5.9 L 5.3 L Glucose 171 H 132 H Calcium 7.3 L 7.5 L Phosphorus 3.4 D 2.7 Magnesium 2.2 2.2 Total Bilirubin 0.7 Direct Bilirubin 0.2 AST 23 ALT 43 Alkaline Phosphatase 308 H Total Protein 4.4 L Albumin 1.6 L Globulin 2.8 Albumin/Globulin Ratio 0.6 L Medications Administered Current Inpatient Medications Diphenoxylate HCl/Atropine (Lomotil) 1 tab PO TID COLT Stop: 11/13/19 13:59 Last Admin: 10/15/19 08:21 Dose: 1 tab Documented by: Heparin Sodium (Porcine) (Heparin Sod 100 Unit/Ml Flush) 5 ml FLUSH PRN PRN PRN Reason: Flush Stop: 11/10/19 00:59 Last Admin: 10/11/19 14:53 Dose: 5 ml Documented by: Piperacillin Sod/Tazobactam (Sod 3.375 gm/ Dextrose) 115 mls @ 28.75 mls/hr IV Q8H [facility]; Protocol Stop: 10/17/19 21:59 Last Infusion: 10/15/19 09:19 Dose: Infused Documented by: Promethazine HCl 12.5 mg/ (Sodium Chloride) 50.5 mls @ 202 mls/hr IV Q6H PRN PRN Reason: Nausea And Vomiting Stop: 11/07/19 20:21 Last Infusion: 10/12/19 13:29 Dose: Infused Documented by: Lorazepam (Ativan) 0.5 mg in 1 mls @ 1 mls/min IV Q4H PRN PRN Reason: Nausea Stop: 11/10/19 00:16 Last Admin: 10/14/19 11:40 Dose: 1 mls/min Documented by: Pantoprazole Sodium 40 mg/ (Syringe) 10 mls @ 5 mls/min IV BID@0900,2100 [facility] Stop: 11/11/19 08:59 Last Admin: 10/15/19 08:21 Dose: 5 mls/min Documented by: Ioversol (Optiray 320 125ml) 119 ml IV ONCE PRN PRN Reason: Interaction Checking Stop: 10/17/19 11:13 Last Admin: 10/13/19 11:15 Dose: 119 ml Documented by: Miscellaneous (Pending Order) 1 ea N/A QS COLT Stop: 11/14/19 15:59 Miscellaneous Information (Consult) 1 ea N/A UD PRN PRN Reason: Consult Stop: 11/07/19 15:57 Miscellaneous Information (Pharmacist Discharge Med Rec Consult) 1 ea N/A UD PRN PRN Reason: Consult Stop: 11/12/19 11:59 Morphine Sulfate (Morphine Sulfate) 3 mg IV Q4H PRN PRN Reason: Pain Stop: 10/22/19 16:30 Last Admin: 10/14/19 18:19 Dose: 3 mg Documented by: Ondansetron HCl (Zofran) 4 mg IV Q6H PRN PRN Reason: nausea Stop: 11/07/19 16:44 Last Admin: 10/12/19 16:53 Dose: 4 mg Documented by: Zolpidem Tartrate (Ambien) 5 mg PO HS PRN PRN Reason: Sleep Stop: 11/13/19 13:22 Last Admin: 10/14/19 20:20 Dose: 5 mg Documented by:
--- NOTE | 2019-10-15 12:56 | Hospitalist Progress Note ---
Date of Service October 15, 2019 Assessment & Plan (1) Stroke: Sudden onset of left hemiparesis morning of 10/12. Stroke alert called. Stat CT ordered and patient was transferred to ICU. Initial concern was possibility of a hemorrhagic stroke given patient's thrombocytopenia, but there was no intracranial hemorrhage. Pneumocephalus was noted within the right vertex / subarachnoid space. No large vessel occlusion noted on CT of head neck. Tele-stroke consultation with [facility] requested and case discussed with Neurology and Neurosurgery. Thrombolytic therapy contraindicated due to thrombocytopenia and recent UGI bleed and, furthermore, probably not indicated given the nature of the event. No indication for neurointerventional or neurosurgical intervention. MRI demonstrated acute infarct in the posterior right frontal lobe in the region of the previously noted pneumocephalus. Case was discussed further with Neurology at [facility] as well as Neurology at [facility]. Paradoxical air embolus with right to left shunt was considered. Echo with bubble study showed patent foramen ovale. Etiology of suspected air embolus unclear. Nursing inspected IV tubing and connections and all appeared to be intact. Ongoing management per stroke protocol. Aspirin therapy contraindicated because of severe thrombocytopenia; also not indicated due to nature of neurologic event. PT/OT/WELDING SYSTEMS AND EQUIPMENT REPAIRER evaluations requested. Seen by WELDING SYSTEMS AND EQUIPMENT REPAIRER - did well with bedside swallowing evaluation. Tolerating full liquid diet, will advance. (2) Neutropenic fever: Neutropenic fever associated with chemotherapy at time of admission. No cough or infiltrates on chest x-ray. UA showed leukocyte esterase, few WBC's, + bacteria. Urine culture grew Klebsiella pneumoniae. Possible biliary source as discussed below. Having loose stools. Possible colitis noted on CT scan. Stool negative for C. difficile. Checking stools for routine enteric pathogens- negative so far. Received intravenous vancomycin and piperacillin/tazobactam. DC vancomycin and continue piperacillin / tazo to cover biliary and urinary tracts. (3) Urinary tract infection: UA showed leukocyte esterase, few WBC's, + bacteria. Urine culture growing Klebsiella pneumoniae. UTI- (present on admission) (4) Elevated LFTs: LFTs elevated at time of admission. CT demonstrated mild thickening of gallbladder wall, gas within the gallbladder lumen, mild pericholecystic stranding. Ultrasound demonstrated borderline gallbladder wall thickening with a few tiny stones and sludge, pneumobilia. Status post ERCP with stent placement on 07/04/2019 and then repeat ERCP for stent change on 08/28/2019. GI consulted. Repeat ERCP not recommended at this time. LFT's improved: Total bilirubin 2.3-->1.1 AST 60 --> 8 ALT 114 --> 44 AP 259 --> 118-> 300 Continue antibiotics for possible cholecystitis or cholangitis. Discussed w/ GI, biliary stent now appears patent and infx not likely. (5) Acute upper GI bleed: Hematemesis with moderate amounts of gross blood. Receiving IV pantoprazole. Hemoglobin falling as discussed below. Transfuse as necessary to maintain adequate H&H; target hemoglobin at least greater than 8. GI consulted. Endoscopy deferred in light of pancytopenia and other issues. Switch to PO PPI. (6) Anemia: Hemoglobin at time of admission 10.7 and fell as low as 7.8. Anemia probably secondary to combination of chemotherapy as well as acute blood loss anemia secondary to upper GI bleed. Transfuse to maintain hemoglobin at least greater than 10 in light of acute stroke. Received 2 units of pRBC's. Current Hgb 11.7 (up from 10.1 day prior) Follow. (7) Neutropenia: Received Neulasta prior to admission. White count at time of admission was 320 and fell as low as 100. WBC on 10/13, 13,000, and now (10/14) elevated at 19,000 Monitor WBC with differential. (8) Thrombocytopenia: Platelet count at time of admission 34,000 and fell as low as 10,000. UGI bleeding early in hospital course- resolved. Has received 2 bags pheresed irradiated platelets. Platelet count on (10/13), 32,000, now on (10/14), 47,000 Transfuse platelets as necessary. (9) Pancreatic cancer: Per Hematology/Oncology. (10) Hypokalemia: Serum potassium as low as 3.1. Replace and monitor, goal K >4 (11) Hypomagnesemia: Magnesium as low as 1.7. Replace and monitor, goal Mg>2 (12) Hypophosphatemia: Serum phosphorus as low as 1.2. Replace and monitor (13) DVT prophylaxis: No anticoagulants secondary to upper GI bleeding and thrombocytopenia. SCDs. Ambulate. (14) Severe malnutrition: 15 pound weight loss since August. Underlying malignancy. Poor p.o. intake due to GI symptoms. Boost Breeze ordered. Seen by Nutrition. Severe protein calorie malnutrition. Continue diet as tolerated and supplements. Consider TPN or enteral nutritional support. Currently pt tolerating full liquid diet and will advance further. (15) Diarrhea: CT suggested colitis. Stool negative for C. difficile. Stool culture for routine enteric pathogens negative. Diarrhea could be secondary to chemo. Started Lomotil. Diarrhea now somewhat improved. (16) Discharge planning issues: Discharge disposition to be determined. Local Medical Oncology follow-up with Dr. Ortiz Torres. Also followed by Medical Oncology at [facility]. Admission and Anticipated Discharge Date Admission Date: October 08, 2019 Subjective Pt is lying in bed, in NAD. Family at the bedside. No acute events overnight. Continues to have left UE and LE weakness, however sensory loss seems to be now improved as she does not report any sensory loss on the left side now. Tolerates full liquid diet. Plan to advance. No fever, chills, chest pain, shortness of breath, abd. pain, nausea or vomiting. Continues to have loose stools, now improved after starting Lomotil yesterday. WBC up to 19K (afebrile since 10/09), secondary to neulasta? Review of Systems Review of Systems: All systems reviewed & are unremarkable except as noted in HPI & below Constitutional: + weakness; no fever and no chills Respiratory: no cough and no dyspnea Cardiovascular: no chest pain and no palpitations Gastrointestinal: no abdominal pain, no nausea and no vomiting Physical Exam Physical Exam: Constitutional:thin female pt lying in bed, in no acute distress ENMT: NC/AT Mouth: no oral mucosal abnormality and no tongue abnormality, left facial droop Respiratory: no respiratory distress Auscultation: lungs clear to auscultation bilaterally, no wheezing, rhonchi noted Chest: port at upper right chest Cardiovascular: Rate/Rhythm: regular rate and regular rhythm Heart Sounds: no gallop Vessels: no JVD Extremities: no calf tenderness and no edema Gastrointestinal (Abdomen): Inspection/Auscultation: normal bowel sounds; abdomen not distended Percussion/Palpation: abdomen soft; abdomen nontender Musculoskeletal: Extremities: no cyanosis, moves RLE and LUE w/o difficulty, can not move LUE, LLE Skin: no rashes, warm and dry Neurologic: PERRL, EOMI, mild left facial palsy, no dysarthria or aphasia, LUE & LLE motor strength 0/5, left plantar reflex upgoing, no sensory loss on the left noted Psychiatric: Orientation: alert and oriented x3 Results & Data ([facility]) Vital Signs (Past 12 Hours) Vital Signs Temp Pulse Pulse Resp BP Pulse Ox 10/15/19 10:48 36.9 C 97 H 18 110/76 96 10/15/19 07:57 90 10/15/19 07:33 36.8 C 93 H 18 113/77 98 10/15/19 05:16 36.8 C 99 H 18 101/65 96 Laboratory Results 10/15/19 10/15/19 10/14/19 Range/Units 05:47 05:47 21:23 WBC 19.05 H (4.8-10.8) K/uL RBC 3.76 L (4.2-5.4) M/uL Hgb 11.7 L (12.0-16.0) g/dL Hct 33.9 L (37-47) % MCV 90.2 (80-100) fL MCH 31.1 (25-34) pg MCHC 34.5 (32-36) g/dL RDW Std Deviation 55.0 H (36.4-46.3) fL RDW Coeff of Rajesh 17.3 H (11.5-14.5) % Plt Count 47 L (130-400) K/uL MPV 11.1 H (7.4-10.4) fL Absolute Nucleated RBC 0.07 H (0-0) K/uL Nucleated RBC % (auto) 0.4 % Neutrophils % (Manual) 77.2 % Lymphocytes % (Manual) 2.6 % Monocytes % (Manual) 17.5 % Metamyelocytes % (Man) 1.8 % Myelocytes % (Man) 0.9 % Neutrophils # (Manual) 14.71 H (1.4-6.5) K/uL Total Absolute Neuts 14.71 H (1.4-6.5) K/uL Lymphocytes # (Manual) 0.50 L (1.2-3.4) K/uL Monocytes # (Manual) 3.33 H (0.11-0.59) K/uL Metamyelocytes # (Man) 0.34 H (0-0) K/uL Myelocytes # (Manual) 0.17 H (0-0) K/uL Toxic Granulation 1+ Dohle Bodies 1+ Sodium 137 136 (136-145) mmol/L Potassium 3.6 3.8 D (3.5-5.1) mmol/L Chloride 108 H 108 H (98-107) mmol/L Carbon Dioxide 23 22 (21-32) mmol/L Anion Gap 6.0 6.0 (3-11) BUN 4 L 5 L (7-18) mg/dl Creatinine 0.79 0.76 (0.6-1.2) mg/dl Est Cr Clr Drug Dosing 72.6 74.0 ml/min Est GFR ( Amer) 91.7 96.1 Est GFR (Non-Af Amer) 79.1 82.9 BUN/Creatinine Ratio 5.3 L 5.9 L (10-20) Glucose 132 H 171 H (70-99) mg/dl Calcium 7.5 L 7.3 L (8.5-10.1) mg/dl Phosphorus 2.7 3.4 D (2.5-4.9) mg/dl Magnesium 2.2 2.2 (1.8-2.4) mg/dl Total Bilirubin 0.7 (0.2-1) mg/dl Direct Bilirubin 0.2 (0-0.2) mg/dl AST 23 (15-37) U/L ALT 43 (12-78) U/L Alkaline Phosphatase 308 H (45-117) U/L Total Protein 4.4 L (6.4-8.2) gm/dl Albumin 1.6 L (3.4-5.0) gm/dl Globulin 2.8 (2.5-4.0) gm/dl Albumin/Globulin Ratio 0.6 L (0.9-2) Medications Administered Current Inpatient Medications Diphenoxylate HCl/Atropine (Lomotil) 1 tab PO TID COLT Stop: 11/13/19 13:59 Last Admin: 10/15/19 14:41 Dose: 1 tab Documented by: Heparin Sodium (Porcine) (Heparin Sod 100 Unit/Ml Flush) 5 ml FLUSH PRN PRN PRN Reason: Flush Stop: 11/10/19 00:59 Last Admin: 10/11/19 14:53 Dose: 5 ml Documented by: Piperacillin Sod/Tazobactam (Sod 3.375 gm/ Dextrose) 115 mls @ 28.75 mls/hr IV Q8H [facility]; Protocol Stop: 10/17/19 21:59 Last Infusion: 10/15/19 15:19 Dose: Infused Documented by: Promethazine HCl 12.5 mg/ (Sodium Chloride) 50.5 mls @ 202 mls/hr IV Q6H PRN PRN Reason: Nausea And Vomiting Stop: 11/07/19 20:21 Last Infusion: 10/12/19 13:29 Dose: Infused Documented by: Lorazepam (Ativan) 0.5 mg in 1 mls @ 1 mls/min IV Q4H PRN PRN Reason: Nausea Stop: 11/10/19 00:16 Last Admin: 10/14/19 11:40 Dose: 1 mls/min Documented by: Ioversol (Optiray 320 125ml) 119 ml IV ONCE PRN PRN Reason: Interaction Checking Stop: 10/17/19 11:13 Last Admin: 10/13/19 11:15 Dose: 119 ml Documented by: Lorazepam (Ativan) 0.5 mg PO BID PRN PRN Reason: Anxiety Stop: 11/14/19 12:45 Last Admin: 10/15/19 15:39 Dose: 0.5 mg Documented by: Miscellaneous (Pending Order) 1 ea N/A QS COLT Stop: 11/14/19 15:59 Last Admin: 10/15/19 15:32 Dose: 1 ea Documented by: Miscellaneous Information (Consult) 1 ea N/A UD PRN PRN Reason: Consult Stop: 11/07/19 15:57 Miscellaneous Information (Pharmacist Discharge Med Rec Consult) 1 ea N/A UD PRN PRN Reason: Consult Stop: 11/12/19 11:59 Morphine Sulfate (Morphine Sulfate) 3 mg IV Q4H PRN PRN Reason: Pain Stop: 10/22/19 16:30 Last Admin: 10/14/19 18:19 Dose: 3 mg Documented by: Ondansetron HCl (Zofran) 4 mg IV Q6H PRN PRN Reason: nausea Stop: 11/07/19 16:44 Last Admin: 10/12/19 16:53 Dose: 4 mg Documented by: Pantoprazole Sodium (Protonix) 40 mg PO BID COLT Stop: 11/14/19 20:59 Potassium Chloride (Klor-Con M20) 40 meq PO NOW STA Stop: 10/15/19 16:29 Zolpidem Tartrate (Ambien) 5 mg PO HS PRN PRN Reason: Sleep Stop: 11/13/19 13:22 Last Admin: 10/14/19 20:20 Dose: 5 mg Documented by:
[2019-10-15] MEDS: LORazepam 0.5 MG TAB PO PRN (15:39)
[2019-10-15] MEDS ORDERED: POTASSIUM CHLORIDE 20 MEQ TABCR PO STA (16:31)
[2019-10-15] MEDS: PANTOprazole 40 MG TAB PO SCH (21:03)
[2019-10-15] MEDS: ZOLPIDEM TARTRATE 5 MG TAB PO PRN (22:16)
[2019-10-16] MEDS: PIPERACILLIN/TAZOBACTAM 3.375 GM in DEXTROSE 5% 100 ML IV SCH ×3 (03:09→22:32)
[2019-10-16 06:47] LABS: Nucleated RBC # (auto) 0.02 K/uL (0-0); Nucleated RBC % (auto) 0.1 %
[2019-10-16 06:55] LABS: Hematocrit (blood only) 32.5 % (37-47); Hemoglobin 10.9 g/dL (12.0-16.0); Mean Corpuscular Hemoglobin 30.8 pg (25-34); Mean Corpuscular Hgb Conc 33.5 g/dL (32-36); Mean Corpuscular Volume 91.8 fL (80-100); Mean Platelet Volume 11.8 fL (7.4-10.4); Platelet Count 83 K/uL (130-400); RDW Coefficient of Variation 17.2 % (11.5-14.5); RDW Standard Deviation 56.2 fL (36.4-46.3); Red Blood Count 3.54 M/uL (4.2-5.4); White Blood Count 18.61 K/uL (4.8-10.8)
[2019-10-16 07:18] LABS: ANC (manual) 15.17 K/uL (1.4-6.5); Eosinophils # (manual) 0.17 K/uL (0-0.5); Eosinophils % (manual) 0.9 %; Lymphocytes # (manual) 1.79 K/uL (1.2-3.4); Lymphocytes % (manual) 9.6 %; Metamyelocytes # (manual) 0.17 K/uL (0-0); Metamyelocytes % (manual) 0.9 %; Monocytes # (manual) 0.99 K/uL (0.11-0.59); Monocytes % (manual) 5.3 %; Neutrophils # (manual) 15.17 K/uL (1.4-6.5); Neutrophils % (manual) 81.5 %; Plasma Cells # (manual) 0.33 K/uL (0-0); Plasma Cells % (manual) 1.8 %; Toxic Granulation 1+
[2019-10-16 07:22] LABS: BUN Creatinine Ratio 6.2 (10-20); Calcium 7.3 mg/dl (8.5-10.1); Creatinine Clr Calc Pharmacy 78.5 ml/min; Est GFR (African American) 100.9; Phosphorus 2.2 mg/dl (2.5-4.9); Potassium 3.7 mmol/L (3.5-5.1)
[2019-10-16] MEDS ORDERED: POTASSIUM CHLORIDE 20 MEQ TABCR PO ONE (08:15)
[2019-10-16] MEDS: DIPHENOXYLATE/ATROPINE 2.5/0.025MG TAB PO SCH ×4 (08:23→20:53)
[2019-10-16] MEDS: PANTOprazole 40 MG TAB PO SCH ×2 (08:23→20:53)
[2019-10-16] MEDS ORDERED: SODIUM PHOSPHATE 3 MMOL/1 ML INFUSION IV STA (09:10)
--- NOTE | 2019-10-16 09:12 | Hospitalist Progress Note ---
Date of Service October 16, 2019 Assessment & Plan (1) Stroke: Sudden onset of left hemiparesis morning of 10/12. Stroke alert called. Stat CT ordered and patient was transferred to ICU. Initial concern was possibility of a hemorrhagic stroke given patient's thrombocytopenia, but there was no intracranial hemorrhage. Pneumocephalus was noted within the right vertex / subarachnoid space. No large vessel occlusion noted on CT of head neck. Tele-stroke consultation with [facility] requested and case discussed with Neurology and Neurosurgery. Thrombolytic therapy contraindicated due to thrombocytopenia and recent UGI bleed and, furthermore, probably not indicated given the nature of the event. No indication for neurointerventional or neurosurgical intervention. MRI demonstrated acute infarct in the posterior right frontal lobe in the region of the previously noted pneumocephalus. Case was discussed further with Neurology at [facility] as well as Neurology at [facility]. Paradoxical air embolus with right to left shunt was considered. Echo with bubble study showed patent foramen ovale. Etiology of suspected air embolus unclear. Nursing inspected IV tubing and connections and all appeared to be intact. Ongoing management per stroke protocol. Aspirin therapy contraindicated because of severe thrombocytopenia; also not indicated due to nature of neurologic event. PT/OT/CRM ANALYST evaluations requested. PT/OT - Concern for left shoulder subluxation per PT/OT, no sign. findings on my exam, however pt can not move the arm at all and so diff. to eval - obtained XR - no acute findings, will order sling to help stabilize. Seen by CRM ANALYST - did well with bedside swallowing evaluation. Tolerating low residue diet. (2) Neutropenic fever: Neutropenic fever associated with chemotherapy at time of admission. No cough or infiltrates on chest x-ray. UA showed leukocyte esterase, few WBC's, + bacteria. Urine culture grew Klebsiella pneumoniae. Possible biliary source as discussed below. Having loose stools. Possible colitis noted on CT scan. Stool negative for C. difficile. Checking stools for routine enteric pathogens- negative so far. Received intravenous vancomycin and piperacillin/tazobactam. DC vancomycin and continue piperacillin / tazo to cover biliary and urinary tracts. D/C zosyn, cont. to monitor for any s/s of inx (3) Urinary tract infection: UA showed leukocyte esterase, few WBC's, + bacteria. Urine culture growing Klebsiella pneumoniae. UTI- (present on admission) Treated with Abx, stop zosyn (4) Elevated LFTs: LFTs elevated at time of admission. CT demonstrated mild thickening of gallbladder wall, gas within the gallbladder lumen, mild pericholecystic stranding. Ultrasound demonstrated borderline gallbladder wall thickening with a few tiny stones and sludge, pneumobilia. Status post ERCP with stent placement on 07/04/2019 and then repeat ERCP for stent change on 08/28/2019. GI consulted. Repeat ERCP not recommended at this time. LFT's improved: Total bilirubin 2.3-->1.1 AST 60 --> 8 ALT 114 --> 44 AP 259 --> 118-> 300 Continue antibiotics for possible cholecystitis or cholangitis. Discussed w/ GI, biliary stent now appears patent and infx not likely. Will stop zosyn, cont. to monitor for any s/s of infx (5) Acute upper GI bleed: Hematemesis with moderate amounts of gross blood. Receiving IV pantoprazole. Hemoglobin falling as discussed below. Transfuse as necessary to maintain adequate H&H; target hemoglobin at least greater than 8. GI consulted. Endoscopy deferred in light of pancytopenia and other issues. Switched to PO PPI. (6) Anemia: Hemoglobin at time of admission 10.7 and fell as low as 7.8. Anemia probably secondary to combination of chemotherapy as well as acute blood loss anemia secondary to upper GI bleed. Transfuse to maintain hemoglobin at least greater than 10 in light of acute stroke. Received 2 units of pRBC's. Current Hgb 10-11, stable Follow. (7) Neutropenia: Received Neulasta prior to admission. White count at time of admission was 320 and fell as low as 100. WBC on 10/13, 13,000, and now (10/14) elevated at 19,000 Monitor WBC with differential. Pt no longer neutropenic, pt actually now w/ leukocytosis (8) Thrombocytopenia: Platelet count at time of admission 34,000 and fell as low as 10,000. UGI bleeding early in hospital course- resolved. Has received 2 bags pheresed irradiated platelets. Platelet count on (10/13), 32,000, now on (10/14), 47,000 Transfuse platelets as necessary. Now plts trending up (likely d/t neulasta) (9) Pancreatic cancer: Per Hematology/Oncology. (10) Hypokalemia: Serum potassium as low as 3.1. Replace and monitor, goal K >4 (11) Hypomagnesemia: Magnesium as low as 1.7. Replace and monitor, goal Mg>2 (12) Hypophosphatemia: Serum phosphorus as low as 1.2. Replace and monitor (13) DVT prophylaxis: No anticoagulants secondary to upper GI bleeding and thrombocytopenia. SCDs. Ambulate. (14) Severe malnutrition: 15 pound weight loss since August. Underlying malignancy. Poor p.o. intake due to GI symptoms. Boost Breeze ordered. Seen by Nutrition. Severe protein calorie malnutrition. Continue diet as tolerated and supplements. Consider TPN or enteral nutritional support. Currently pt tolerating low residue diet. (15) Diarrhea: CT suggested colitis. Stool negative for C. difficile. Stool culture for routine enteric pathogens negative. Diarrhea could be secondary to chemo. Started Lomotil. Diarrhea now somewhat improved. Will increase lomotil to QID. (16) Discharge planning issues: Discharge disposition to be determined. Local Medical Oncology follow-up with Dr. Ortiz Torres. Also followed by Medical Oncology at [facility]. Admission and Anticipated Discharge Date Admission Date: October 08, 2019 Subjective Pt is lying in bed, in NAD. Pt's at the bedside. No acute events overnight. Continues to have left UE and LE weakness, however sensory loss seems to be now improved/ resolved on the left side. Tolerates low residue diet. No fever, chills, chest pain, shortness of breath, abd. pain, nausea or vomiting. Continues to have loose stools, now improved after starting Lomotil. However per pt only had about 4 BMs (and prior to hospitalization could not count how many, however per nursing, pt still has multiple loose stools and is incontinent - asking about increasing lomotil - will change to QID, and cont. to closely monitor WBC stable since yesterday at 19K (plt count and hgb also increased, secondary to neulasta?) Afebrile since 3/6 Concern for left shoulder subluxation per PT/OT, no sign. findings on my exam, however pt can not move the arm at all and so diff. to eval - obtained XR - no acute findings, will order sling to help stabilize. Review of Systems Review of Systems: All systems reviewed & are unremarkable except as noted in HPI & below ROS per HPI, all other systems reviewed and negative Constitutional: + weakness; no fever and no chills Respiratory: no cough and no dyspnea Cardiovascular: no chest pain and no palpitations Gastrointestinal: + diarrhea/loose stools (improved); no abdominal pain, no nausea and no vomiting Physical Exam Physical Exam: Constitutional:thin female pt lying in bed, in no acute distress ENMT: NC/AT Mouth: no oral mucosal abnormality and no tongue abnormality, left facial droop Respiratory: no respiratory distress Auscultation: lungs clear to auscultation bilaterally, no wheezing, rhonchi noted Chest: port at upper right chest Cardiovascular: Rate/Rhythm: regular rate and regular rhythm Heart Sounds: no gallop Vessels: no JVD Extremities: no calf tenderness and no edema Gastrointestinal (Abdomen): Inspection/Auscultation: normal bowel sounds; abdomen not distended Percussion/Palpation: abdomen soft; abdomen nontender Musculoskeletal: Extremities: no cyanosis, moves RLE and LUE w/o difficulty, can not move LUE, LLE Skin: no rashes, warm and dry Neurologic: PERRL, EOMI, mild left facial palsy, no dysarthria or aphasia, LUE & LLE motor strength 0/5, left plantar reflex upgoing, no sensory loss on the left noted Psychiatric: Orientation: alert and oriented x3 Results & Data ([facility]) Vital Signs (Past 12 Hours) Vital Signs Temp Pulse Pulse Resp BP Pulse Ox 10/16/19 07:28 36.7 C 96 H 16 106/71 95 10/16/19 03:06 36.8 C 103 H 18 102/65 94 10/15/19 23:14 36.7 C 91 H 18 100/70 98 10/15/19 23:00 94 H Laboratory Results 10/16/19 10/16/19 Range/Units 06:24 06:24 WBC 18.61 H (4.8-10.8) K/uL RBC 3.54 L (4.2-5.4) M/uL Hgb 10.9 L (12.0-16.0) g/dL Hct 32.5 L (37-47) % MCV 91.8 (80-100) fL MCH 30.8 (25-34) pg MCHC 33.5 (32-36) g/dL RDW Std Deviation 56.2 H (36.4-46.3) fL RDW Coeff of Rajesh 17.2 H (11.5-14.5) % Plt Count 83 L D (130-400) K/uL MPV 11.8 H (7.4-10.4) fL Absolute Nucleated RBC 0.02 H (0-0) K/uL Nucleated RBC % (auto) 0.1 % Neutrophils % (Manual) 81.5 % Lymphocytes % (Manual) 9.6 % Monocytes % (Manual) 5.3 % Eosinophils % (Manual) 0.9 % Metamyelocytes % (Man) 0.9 % Plasma Cell % (Manual) 1.8 % Neutrophils # (Manual) 15.17 H (1.4-6.5) K/uL Total Absolute Neuts 15.17 H (1.4-6.5) K/uL Lymphocytes # (Manual) 1.79 (1.2-3.4) K/uL Monocytes # (Manual) 0.99 H (0.11-0.59) K/uL Eosinophils # (Manual) 0.17 (0-0.5) K/uL Metamyelocytes # (Man) 0.17 H (0-0) K/uL Plasma Cell # (Manual) 0.33 H (0-0) K/uL Toxic Granulation 1+ Sodium 139 (136-145) mmol/L Potassium 3.7 (3.5-5.1) mmol/L Chloride 109 H (98-107) mmol/L Carbon Dioxide 23 (21-32) mmol/L Anion Gap 7.0 (3-11) BUN 5 L (7-18) mg/dl Creatinine 0.73 (0.6-1.2) mg/dl Est Cr Clr Drug Dosing 78.5 ml/min Est GFR ( Amer) 100.9 Est GFR (Non-Af Amer) 87.0 BUN/Creatinine Ratio 6.2 L (10-20) Glucose 102 H (70-99) mg/dl Calcium 7.3 L (8.5-10.1) mg/dl Phosphorus 2.2 L (2.5-4.9) mg/dl Magnesium 2.0 (1.8-2.4) mg/dl Medications Administered Current Inpatient Medications Diphenoxylate HCl/Atropine (Lomotil) 1 tab PO TID COLT Stop: 11/13/19 13:59 Last Admin: 10/16/19 08:23 Dose: 1 tab Documented by: Heparin Sodium (Porcine) (Heparin Sod 100 Unit/Ml Flush) 5 ml FLUSH PRN PRN PRN Reason: Flush Stop: 11/10/19 00:59 Last Admin: 10/11/19 14:53 Dose: 5 ml Documented by: Piperacillin Sod/Tazobactam (Sod 3.375 gm/ Dextrose) 115 mls @ 28.75 mls/hr IV Q8H COLT; Protocol Stop: 10/17/19 21:59 Last Infusion: 10/16/19 07:10 Dose: Infused Documented by: Promethazine HCl 12.5 mg/ (Sodium Chloride) 50.5 mls @ 202 mls/hr IV Q6H PRN PRN Reason: Nausea And Vomiting Stop: 11/07/19 20:21 Last Infusion: 10/12/19 13:29 Dose: Infused Documented by: Lorazepam (Ativan) 0.5 mg in 1 mls @ 1 mls/min IV Q4H PRN PRN Reason: Nausea Stop: 11/10/19 00:16 Last Admin: 10/14/19 11:40 Dose: 1 mls/min Documented by: Ioversol (Optiray 320 125ml) 119 ml IV ONCE PRN PRN Reason: Interaction Checking Stop: 10/17/19 11:13 Last Admin: 10/13/19 11:15 Dose: 119 ml Documented by: Lorazepam (Ativan) 0.5 mg PO BID PRN PRN Reason: Anxiety Stop: 11/14/19 12:45 Last Admin: 10/15/19 15:39 Dose: 0.5 mg Documented by: Miscellaneous (Pending Order) 1 ea N/A QS COLT Stop: 11/14/19 15:59 Last Admin: 10/16/19 08:23 Dose: 1 ea Documented by: Miscellaneous Information (Consult) 1 ea N/A UD PRN PRN Reason: Consult Stop: 11/07/19 15:57 Miscellaneous Information (Pharmacist Discharge Med Rec Consult) 1 ea N/A UD PRN PRN Reason: Consult Stop: 11/12/19 11:59 Morphine Sulfate (Morphine Sulfate) 3 mg IV Q4H PRN PRN Reason: Pain Stop: 10/22/19 16:30 Last Admin: 10/14/19 18:19 Dose: 3 mg Documented by: Ondansetron HCl (Zofran) 4 mg IV Q6H PRN PRN Reason: nausea Stop: 11/07/19 16:44 Last Admin: 10/12/19 16:53 Dose: 4 mg Documented by: Pantoprazole Sodium (Protonix) 40 mg PO BID COLT Stop: 11/14/19 20:59 Last Admin: 10/16/19 08:23 Dose: 40 mg Documented by: Sodium Phosphate (Sodium Phosphate Replacement) 15 mmol IV NOW STA Stop: 10/16/19 09:11 Zolpidem Tartrate (Ambien) 5 mg PO HS PRN PRN Reason: Sleep Stop: 11/13/19 13:22 Last Admin: 10/15/19 22:16 Dose: 5 mg Documented by:
[2019-10-16] MEDS ORDERED: SODIUM PHOSPHATE 15 MMOL in SODIUM CHLORIDE 0.9% 250 ML IV ONE (09:30)
[2019-10-16] MEDS: LORazepam 0.5 MG TAB PO PRN (14:11)
--- NOTE | 2019-10-16 14:22 | XRay Report ---
SINGLE VIEW LEFT SHOULDER CLINICAL HISTORY: Concern for left shoulder subluxation. FINDINGS: An AP portable view of the left shoulder is obtained. No prior studies are available for co mparison at the time of dictation. The skeletal structures are osteopenic. There is no radiographic e vidence of fracture or dislocation of the single view. The glenohumeral articulation is maintained. P roductive degenerative change is seen at the acromio clavicular joint. The overlying soft tissues are within normal limits. The visualized left lung parenchyma appears clear. A central venous catheter i s partially imaged. IMPRESSION: No acute bony abnormality is identified. Electronically signed by: Latrell San M.D. 10/16/2019 2:21 PM
[2019-10-16] MEDS: HEPARIN 100 UNIT/ML 5ML FLUSH FLUSH PRN (20:45)
[2019-10-16] MEDS: ZOLPIDEM TARTRATE 5 MG TAB PO PRN (20:53)
[2019-10-17] MEDS ORDERED: SODIUM CHLORIDE 0.65% NA SOLN 45 ML (OCEAN) ONE (00:10)
[2019-10-17] MEDS ORDERED: SALINE NASAL 225 SPRAYS, GENTAMICIN SULFATE 60 MG, BARCODE IDENTIFIER 0 EA PRN (02:05)
[2019-10-17] MEDS ORDERED: SODIUM CHLORIDE 0.65% NA SOLN 45 ML (OCEAN) PRN (02:12)
[2019-10-17 08:00] LABS: Hematocrit (blood only) 31.5 % (37-47); Hemoglobin 10.6 g/dL (12.0-16.0); Mean Corpuscular Hemoglobin 31.1 pg (25-34); Mean Corpuscular Hgb Conc 33.7 g/dL (32-36); Mean Corpuscular Volume 92.4 fL (80-100); Mean Platelet Volume 11.6 fL (7.4-10.4); Platelet Count 134 K/uL (130-400); RDW Coefficient of Variation 17.2 % (11.5-14.5); RDW Standard Deviation 56.3 fL (36.4-46.3); Red Blood Count 3.41 M/uL (4.2-5.4); White Blood Count 15.41 K/uL (4.8-10.8)
[2019-10-17 08:15] LABS: Anisocytosis Present; Basophils # (auto) 0.03 K/uL (0-0.2); Basophils % (auto) 0.2 %; Dohle Bodies 1+; Eosinophils # (auto) 0.02 K/uL (0-0.5); Eosinophils % (auto) 0.1 %; Giant Platelets 1+; Immature Granulocytes # (auto) 1.05 K/uL (0.00-0.02); Immature Granulocytes % (auto) 6.8 %; Lymphocytes # (auto) 1.53 K/uL (1.2-3.4); Lymphocytes % (auto) 9.9 %; Monocytes # (auto) 1.64 K/uL (0.11-0.59); Monocytes % (auto) 10.6 %; Neutrophils # (auto) 11.14 K/uL (1.4-6.5); Neutrophils % (auto) 72.4 %; Platelet Estimate Decreased (Normal); Poikilocytosis Present; Polychromasia 1+; Toxic Granulation 1+
[2019-10-17] MEDS: DIPHENOXYLATE/ATROPINE 2.5/0.025MG TAB PO SCH ×4 (08:21→20:35)
[2019-10-17] MEDS: PANTOprazole 40 MG TAB PO SCH ×2 (08:21→20:36)
[2019-10-17 08:23] LABS: BUN Creatinine Ratio 9.5 (10-20); Calcium 7.4 mg/dl (8.5-10.1); Creatinine Clr Calc Pharmacy 92.5 ml/min; Est GFR (African American) 110.4; Est GFR (Non-African American) 95.3; Magnesium 1.9 mg/dl (1.8-2.4); Phosphorus 2.4 mg/dl (2.5-4.9); Potassium 3.5 mmol/L (3.5-5.1)
[2019-10-17] MEDS ORDERED: POTASSIUM CHLORIDE 20 MEQ TABCR PO STA (08:41)
[2019-10-17] MEDS ORDERED: POTASSIUM PHOS 3 MMOL/1 ML INFUSION IV STA (08:42)
--- NOTE | 2019-10-17 09:06 | Hospitalist Progress Note ---
Date of Service October 17, 2019 Assessment & Plan (1) Stroke: Sudden onset of left hemiparesis morning of 10/12. Stroke alert called. Stat CT ordered and patient was transferred to ICU. Initial concern was possibility of a hemorrhagic stroke given patient's thrombocytopenia, but there was no intracranial hemorrhage. Pneumocephalus was noted within the right vertex / subarachnoid space. No large vessel occlusion noted on CT of head neck. Tele-stroke consultation with [facility] requested and case discussed with Neurology and Neurosurgery. Thrombolytic therapy contraindicated due to thrombocytopenia and recent UGI bleed and, furthermore, probably not indicated given the nature of the event. No indication for neurointerventional or neurosurgical intervention. MRI demonstrated acute infarct in the posterior right frontal lobe in the region of the previously noted pneumocephalus. Case was discussed further with Neurology at [facility] as well as Neurology at [facility] [address]. Paradoxical air embolus with right to left shunt was considered. Echo with bubble study showed patent foramen ovale. Etiology of suspected air embolus unclear. Nursing inspected IV tubing and connections and all appeared to be intact. Ongoing management per stroke protocol. Aspirin therapy contraindicated because of severe thrombocytopenia; also not indicated due to nature of neurologic event. PT/OT/MEAT AND SEAFOOD CLERK evaluations requested. PT/OT - Concern for left shoulder subluxation per PT/OT, no sign. findings on my exam, however pt can not move the arm at all and so diff. to eval - obtained XR - no acute findings, will order sling to help stabilize. Seen by MEAT AND SEAFOOD CLERK - did well with bedside swallowing evaluation. Tolerating low residue diet. (2) Neutropenic fever: Neutropenic fever associated with chemotherapy at time of admission. No cough or infiltrates on chest x-ray. UA showed leukocyte esterase, few WBC's, + bacteria. Urine culture grew Klebsiella pneumoniae. Possible biliary source as discussed below. Having loose stools. Possible colitis noted on CT scan. Stool negative for C. difficile. Checking stools for routine enteric pathogens- negative so far. Received intravenous vancomycin and piperacillin/tazobactam. DC vancomycin and continue piperacillin / tazo to cover biliary and urinary tracts. D/C zosyn, cont. to monitor for any s/s of inx (3) Urinary tract infection: UA showed leukocyte esterase, few WBC's, + bacteria. Urine culture growing Klebsiella pneumoniae. UTI- (present on admission) Treated with Abx, stop zosyn (4) Elevated LFTs: LFTs elevated at time of admission. CT demonstrated mild thickening of gallbladder wall, gas within the gallbladder lumen, mild pericholecystic stranding. Ultrasound demonstrated borderline gallbladder wall thickening with a few tiny stones and sludge, pneumobilia. Status post ERCP with stent placement on 07/04/2019 and then repeat ERCP for stent change on 08/28/2019. GI consulted. Repeat ERCP not recommended at this time. LFT's improved: Total bilirubin 2.3-->1.1 AST 60 --> 8 ALT 114 --> 44 AP 259 --> 118-> 300 Continue antibiotics for possible cholecystitis or cholangitis. Discussed w/ GI, biliary stent now appears patent and infx not likely. Stopped zosyn, cont. to monitor for any s/s of infx (5) Acute upper GI bleed: Hematemesis with moderate amounts of gross blood. Receiving IV pantoprazole. Hemoglobin falling as discussed below. Transfuse as necessary to maintain adequate H&H; target hemoglobin at least greater than 8. GI consulted. Endoscopy deferred in light of pancytopenia and other issues. Switched to PO PPI. Hgb stable 10-11. (6) Anemia: Hemoglobin at time of admission 10.7 and fell as low as 7.8. Anemia probably secondary to combination of chemotherapy as well as acute blood loss anemia secondary to upper GI bleed. Transfuse to maintain hemoglobin at least greater than 10 in light of acute stroke. Received 2 units of pRBC's. Current Hgb 10-11, stable Follow. (7) Neutropenia: Received Neulasta prior to admission. White count at time of admission was 320 and fell as low as 100. WBC on 10/13, 13,000, and now (10/14) elevated at 19,000 Monitor WBC with differential. Pt no longer neutropenic, pt actually now w/ leukocytosis (8) Thrombocytopenia: Platelet count at time of admission 34,000 and fell as low as 10,000. UGI bleeding early in hospital course- resolved. Has received 2 bags pheresed irradiated platelets. Platelet count on (10/13), 32,000, now on (10/14), 47,000 Transfuse platelets as necessary. Now plts count normalized (134K, on 10/16) (9) Pancreatic cancer: Per Hematology/Oncology. (10) Hypokalemia: Serum potassium as low as 3.1. Replace and monitor, goal K >4 (11) Hypomagnesemia: Magnesium as low as 1.7. Replace and monitor, goal Mg>2 (12) Hypophosphatemia: Serum phosphorus as low as 1.2. Replace and monitor (13) DVT prophylaxis: No anticoagulants secondary to upper GI bleeding and thrombocytopenia. SCDs. Ambulate. (14) Severe malnutrition: 15 pound weight loss since August. Underlying malignancy. Poor p.o. intake due to GI symptoms. Boost Breeze ordered. Seen by Nutrition. Severe protein calorie malnutrition. Continue diet as tolerated and supplements. Consider TPN or enteral nutritional support. Currently pt tolerating low residue diet. (15) Diarrhea: CT suggested colitis. Stool negative for C. difficile. Stool culture for routine enteric pathogens negative. Diarrhea could be secondary to chemo. Started Lomotil. Diarrhea now somewhat improved. Cont. lomotil QID. (16) Discharge planning issues: Discharge disposition to be determined. Plan for inpt rehab/ [facility]. Local Medical Oncology follow-up with Dr. Ortiz Torres. Also followed by Medical Oncology at [facility]. Admission and Anticipated Discharge Date Admission Date: October 08, 2019 Subjective Pt is sitting up in chair in NAD. Family at the bedside. No acute events overnight. Continues to have left UE and LE weakness, however reported later by RN that pt was able to move her LLE - very subtle movements. Tolerates low residue diet. Asking about trying banana and rice, agreed to try those. No fever, chills, chest pain, shortness of breath, abd. pain, nausea or vomiting. Continues to have loose stools, now improved after starting Lomotil (which was also increased to QID). WBC down to 15K from 19K (plt count normalized) Afebrile since 10/09 Review of Systems Review of Systems: All systems reviewed & are unremarkable except as noted in HPI & below ROS per HPI, all other systems reviewed and negative Constitutional: + weakness; no fever and no chills Respiratory: no cough and no dyspnea Cardiovascular: no chest pain and no palpitations Gastrointestinal: + diarrhea/loose stools (improved); no abdominal pain, no nausea and no vomiting Physical Exam Physical Exam: Constitutional:thin female pt sitting up in the chair, in no acute distress ENMT: NC/AT Mouth: no oral mucosal abnormality and no tongue abnormality, left facial droop Respiratory: no respiratory distress Auscultation: lungs clear to auscultation bilaterally, no wheezing, rhonchi noted Chest: port at upper right chest Cardiovascular: Rate/Rhythm: regular rate and regular rhythm Heart Sounds: no gallop Vessels: no JVD Extremities: no calf tenderness and no edema Gastrointestinal (Abdomen): Inspection/Auscultation: normal bowel sounds; abdomen not distended Percussion/Palpation: abdomen soft; abdomen nontender Musculoskeletal: Extremities: no cyanosis, moves RLE and RUE w/o difficulty, can not move LUE, LLE Skin: no rashes, warm and dry Neurologic: PERRL, EOMI, mild left facial palsy, no dysarthria or aphasia, LUE & LLE motor strength 0/5, no sensory loss on the left noted Psychiatric: Orientation: alert and oriented x3, euthymic effect Results & Data ([facility]) Vital Signs (Past 12 Hours) Vital Signs Temp Pulse Resp BP BP Pulse Ox 10/17/19 07:58 36.8 C 94 H 18 121/67 97 10/17/19 03:39 37.1 C 94 H 18 116/72 96 10/16/19 23:57 36.9 C 95 H 16 109/70 94 Laboratory Results 10/17/19 10/17/19 10/13/19 Range/Units 07:46 07:46 11:46 WBC 15.41 H (4.8-10.8) K/uL RBC 3.41 L (4.2-5.4) M/uL Hgb 10.6 L (12.0-16.0) g/dL Hct 31.5 L (37-47) % MCV 92.4 (80-100) fL MCH 31.1 (25-34) pg MCHC 33.7 (32-36) g/dL RDW Std Deviation 56.3 H (36.4-46.3) fL RDW Coeff of Rajesh 17.2 H (11.5-14.5) % Plt Count 134 D (130-400) K/uL MPV 11.6 H (7.4-10.4) fL Immature Gran % (Auto) 6.8 % Neut % (Auto) 72.4 % Lymph % (Auto) 9.9 % Benton % (Auto) 10.6 % Eos % (Auto) 0.1 % Baso % (Auto) 0.2 % Immature Gran # (Auto) 1.05 H (0.00-0.02) K/uL Neut # (Auto) 11.14 H (1.4-6.5) K/uL Lymph # (Auto) 1.53 (1.2-3.4) K/uL Benton # (Auto) 1.64 H (0.11-0.59) K/uL Eos # (Auto) 0.02 (0-0.5) K/uL Baso # (Auto) 0.03 (0-0.2) K/uL Toxic Granulation 1+ Dohle Bodies 1+ Platelet Estimate Decreased L (Normal) Giant Platelets 1+ Polychromasia 1+ Poikilocytosis Present Anisocytosis Present Sodium 138 (136-145) mmol/L Potassium 3.5 (3.5-5.1) mmol/L Chloride 108 H (98-107) mmol/L Carbon Dioxide 24 (21-32) mmol/L Anion Gap 6.0 (3-11) BUN 6 L (7-18) mg/dl Creatinine 0.62 (0.6-1.2) mg/dl Est Cr Clr Drug Dosing 92.5 ml/min Est GFR ( Amer) 110.4 Est GFR (Non-Af Amer) 95.3 BUN/Creatinine Ratio 9.5 L (10-20) Glucose 101 H (70-99) mg/dl Calcium 7.4 L (8.5-10.1) mg/dl Phosphorus 2.4 L (2.5-4.9) mg/dl Magnesium 1.9 (1.8-2.4) mg/dl Crossmatch See Detail Medications Administered Current Inpatient Medications Diphenoxylate HCl/Atropine (Lomotil) 1 tab PO QID COLT Stop: 11/15/19 16:59 Last Admin: 10/17/19 08:21 Dose: 1 tab Documented by: Heparin Sodium (Porcine) (Heparin Sod 100 Unit/Ml Flush) 5 ml FLUSH PRN PRN PRN Reason: Flush Stop: 11/10/19 00:59 Last Admin: 10/16/19 20:45 Dose: 5 ml Documented by: Promethazine HCl 12.5 mg/ (Sodium Chloride) 50.5 mls @ 202 mls/hr IV Q6H PRN PRN Reason: Nausea And Vomiting Stop: 11/07/19 20:21 Last Infusion: 10/12/19 13:29 Dose: Infused Documented by: Lorazepam (Ativan) 0.5 mg in 1 mls @ 1 mls/min IV Q4H PRN PRN Reason: Nausea Stop: 11/10/19 00:16 Last Admin: 10/14/19 11:40 Dose: 1 mls/min Documented by: Potassium Phosphate 15 mmol/ (Sodium Chloride) 255 mls @ 88 mls/hr IV ONE ONE Stop: 10/17/19 12:08 Ioversol (Optiray 320 125ml) 119 ml IV ONCE PRN PRN Reason: Interaction Checking Stop: 10/17/19 11:13 Last Admin: 10/13/19 11:15 Dose: 119 ml Documented by: Lorazepam (Ativan) 0.5 mg PO BID PRN PRN Reason: Anxiety Stop: 11/14/19 12:45 Last Admin: 10/16/19 14:11 Dose: 0.5 mg Documented by: Miscellaneous (Pending Order) 1 ea N/A QS COLT Stop: 11/14/19 15:59 Last Admin: 10/17/19 08:20 Dose: Not Given Documented by: Miscellaneous Information (Pharmacist Discharge Med Rec Consult) 1 ea N/A UD PRN PRN Reason: Consult Stop: 11/12/19 11:59 Morphine Sulfate (Morphine Sulfate) 3 mg IV Q4H PRN PRN Reason: Pain Stop: 10/22/19 16:30 Last Admin: 10/14/19 18:19 Dose: 3 mg Documented by: Ondansetron HCl (Zofran) 4 mg IV Q6H PRN PRN Reason: nausea Stop: 11/07/19 16:44 Last Admin: 10/12/19 16:53 Dose: 4 mg Documented by: Pantoprazole Sodium (Protonix) 40 mg PO BID COLT Stop: 11/14/19 20:59 Last Admin: 10/17/19 08:21 Dose: 40 mg Documented by: Sodium Chloride ([place] Nasal) 1 sprays NA PRN PRN PRN Reason: Dryness Stop: 11/16/19 02:11 Zolpidem Tartrate (Ambien) 5 mg PO HS PRN PRN Reason: Sleep Stop: 11/13/19 13:22 Last Admin: 10/16/19 20:53 Dose: 5 mg Documented by:
[2019-10-17] MEDS ORDERED: SODIUM PHOSPHATE 15 MMOL in SODIUM CHLORIDE 0.9% 250 ML IV ONE (09:15)
[2019-10-17] MEDS ORDERED: POTASSIUM PHOSPHATE 15 MMOL in SODIUM CHLORIDE 0.9% 250 ML IV ONE (09:15)
[2019-10-17] MEDS: LORazepam 0.5 MG TAB PO PRN (12:45)
--- NOTE | 2019-10-17 13:28 | Internal Medicine Consult Note ---
Date of Consultation October 17, 2019 Assessment & Plan (1) Encounter for rehabilitation evaluation: Pancreatic cancer with neutropenic fever and new embolic stroke. Her medical situation is very complex. The rehab hospital would be the appropriate post acute care destination for her. Once the medical targets are deemed stable, acute stroke rehab will benefit her. History of Present Illness Reason for Consultation: Rehab Hospital Medical Evaluation...High Risk Patient Review Attending Physician: Christiano Paulino MD History of Present Illness She has been hospitalized with neutropenia associated with chemotherapy for her pancreatic cancer. She suffered an acute stroke related to an air embolism. A foramen with right to left shunt noted on evaluation. She continues to have substantial deficits. She is very anxious to engage in therapy in order to maximize recovery. Other medical issues have included an UGI bleed, neutropenic fever. She is awake and interactive. Understands her situation and options of care. She has an engaged family. Allergies Allergy/AdvReac Type Severity Reaction Status Date / Time codeine Allergy Unknown Unverified 10/08/19 14:15 Home Medications Home Medications Medication Instructions Recorded Confirmed Type docusate sodium [Colace] 100 mg PO BID 08/25/19 10/08/19 History oxycodone [OxyContin] 20 mg PO Q12H PRN 08/25/19 10/08/19 History senna 8.6 mg PO HS PRN 08/25/19 10/08/19 History Neulasta 0 mg SUBCUT UD 10/04/19 10/08/19 History Prilosec OTC 20 mg PO DAILY 10/04/19 10/08/19 History loratadine [Claritin] 10 mg PO DAILY 10/04/19 10/08/19 History [id number] [Creon] 1 cap PO TIDM 10/08/19 10/08/19 History ondansetron HCl [Zofran] 8 mg PO Q6H PRN 10/08/19 10/08/19 History prochlorperazine maleate 5 mg PO BID PRN 10/08/19 10/08/19 History [Compazine] simethicone 125 mg PO BID PRN 10/08/19 10/08/19 History Patient History Medical History Diarrhea Hemiplegia affecting left dominant side Pancreatic cancer Patent foramen ovale Pneumocephalus S/P admission to ICU (intensive care unit) Surgical History No pertinent past surgical history Family History Other No pertinent family history Social History Preferred Language: Slovak Communication Ability: Effective Revenue Manager Required: No Beliefs That Will Affect Care: None marital status: Current Living Situation: Spouse Feels Safe at Home: Yes Safety Concerns: Feels Safe At This Time Smoking Status: Never smoker Do You Dip or Chew Tobacco: No ; Second Hand Exposure: No ; Hx Alcohol Use: No Hx Substance Use: No Review of Systems Review of Systems: as noted in the HPI Physical Exam Physical Exam: Vitals--stable Very frail appearing HEENT--no new deficits Respiratory--comfortable Cardio--volume acceptable GI--functional Neuro--stable deficts Psych--interactive and appropriate Results & Data Vital Signs (Past 12 Hours) Vital Signs Temp Pulse Pulse Resp BP Pulse Ox 10/17/19 11:56 36.8 C 94 H 18 121/67 97 10/17/19 08:00 98 H 10/17/19 07:58 36.8 C 94 H 18 121/67 97 10/17/19 03:39 37.1 C 94 H 18 116/72 96
[2019-10-17] MEDS: ZOLPIDEM TARTRATE 5 MG TAB PO PRN (20:35)
[2019-10-18 06:21] LABS: Hematocrit (blood only) 32.4 % (37-47); Hemoglobin 10.9 g/dL (12.0-16.0); Mean Corpuscular Hemoglobin 31.7 pg (25-34); Mean Corpuscular Hgb Conc 33.6 g/dL (32-36); Mean Corpuscular Volume 94.2 fL (80-100); Mean Platelet Volume 11.5 fL (7.4-10.4); Nucleated RBC # (auto) 0.03 K/uL (0-0); Nucleated RBC % (auto) 0.2 %; Platelet Count 164 K/uL (130-400); RDW Coefficient of Variation 17.2 % (11.5-14.5); Red Blood Count 3.44 M/uL (4.2-5.4); White Blood Count 12.71 K/uL (4.8-10.8)
[2019-10-18 06:27] LABS: BUN Creatinine Ratio 10.7 (10-20); Calcium 7.7 mg/dl (8.5-10.1); Est GFR (Non-African American) 95.8; Potassium 4.3 mmol/L (3.5-5.1)
[2019-10-18] MEDS: PANTOprazole 40 MG TAB PO SCH ×2 (08:55→22:01)
[2019-10-18] MEDS: DIPHENOXYLATE/ATROPINE 2.5/0.025MG TAB PO SCH ×4 (08:55→22:02)
--- NOTE | 2019-10-18 12:35 | Hospitalist Progress Note ---
Date of Service October 18, 2019 Assessment & Plan (1) Stroke: Sudden onset of left hemiparesis morning of 10/12. Stroke alert called. Stat CT ordered and patient was transferred to ICU. Initial concern was possibility of a hemorrhagic stroke given patient's thrombocytopenia, but there was no intracranial hemorrhage. Pneumocephalus was noted within the right vertex / subarachnoid space. No large vessel occlusion noted on CT of head neck. Tele-stroke consultation with [facility] requested and case discussed with Neurology and Neurosurgery. Thrombolytic therapy contraindicated due to thrombocytopenia and recent UGI bleed and, furthermore, probably not indicated given the nature of the event. No indication for neurointerventional or neurosurgical intervention. MRI demonstrated acute infarct in the posterior right frontal lobe in the region of the previously noted pneumocephalus. Case was discussed further with Neurology at [facility] as well as Neurology at [facility]. Paradoxical air embolus with right to left shunt was considered. Echo with bubble study showed patent foramen ovale. Etiology of suspected air embolus unclear. Nursing inspected IV tubing and connections and all appeared to be intact. Ongoing management per stroke protocol. Aspirin therapy contraindicated because of severe thrombocytopenia; also not indicated due to nature of neurologic event. PT/OT/TIME PIECE REPAIRER evaluations requested. PT/OT - Concern for left shoulder subluxation per PT/OT, no sign. findings on my exam, however pt can not move the arm at all and so diff. to eval - obtained XR - no acute findings, will order sling to help stabilize. Seen by TIME PIECE REPAIRER - did well with bedside swallowing evaluation. Tolerating low residue diet. (2) Neutropenic fever: Neutropenic fever associated with chemotherapy at time of admission. No cough or infiltrates on chest x-ray. UA showed leukocyte esterase, few WBC's, + bacteria. Urine culture grew Klebsiella pneumoniae. Possible biliary source as discussed below. Having loose stools. Possible colitis noted on CT scan. Stool negative for C. difficile. Checking stools for routine enteric pathogens- negative so far. Received intravenous vancomycin and piperacillin/tazobactam. DC vancomycin and continue piperacillin / tazo to cover biliary and urinary tracts. D/C zosyn, cont. to monitor for any s/s of inx Neutropenia resolved, pt afebrile since 10/09. No s/s of infx noted. (3) Urinary tract infection: UA showed leukocyte esterase, few WBC's, + bacteria. Urine culture growing Klebsiella pneumoniae. UTI- (present on admission) Treated with Abx, stopped zosyn (4) Elevated LFTs: LFTs elevated at time of admission. CT demonstrated mild thickening of gallbladder wall, gas within the gallbladder lumen, mild pericholecystic stranding. Ultrasound demonstrated borderline gallbladder wall thickening with a few tiny stones and sludge, pneumobilia. Status post ERCP with stent placement on 07/04/2019 and then repeat ERCP for stent change on 08/28/2019. GI consulted. Repeat ERCP not recommended at this time. LFT's improved: Total bilirubin 2.3-->1.1 AST 60 --> 8 ALT 114 --> 44 AP 259 --> 118-> 300 Continued antibiotics for possible cholecystitis or cholangitis. Discussed w/ GI, biliary stent now appears patent and infx not likely. Stopped zosyn, cont. to monitor for any s/s of infx (5) Acute upper GI bleed: Hematemesis with moderate amounts of gross blood. Receiving IV pantoprazole. Hemoglobin falling as discussed below. Transfuse as necessary to maintain adequate H&H; target hemoglobin at least greater than 8. GI consulted. Endoscopy deferred in light of pancytopenia and other issues. Switched to PO PPI. Hgb stable 10-11. No recurrent hematemesis. (6) Anemia: Hemoglobin at time of admission 10.7 and fell as low as 7.8. Anemia probably secondary to combination of chemotherapy as well as acute blood loss anemia secondary to upper GI bleed. Transfuse to maintain hemoglobin at least greater than 10 in light of acute s troke. Received 2 units of pRBC's. Current Hgb 10.9, stable Cont. to monitor. (7) Neutropenia: Received Neulasta prior to admission. White count at time of admission was 320 and fell as low as 100. WBC on 10/13, 13,000, and then (10/14) elevated at 19,000 Monitor WBC with differential. Pt no longer neutropenic, pt actually now w/ leukocytosis WBC trending down Current WBC down to 12.7K (from 19K earlier) Pt is off Abx, no s/s of infx. (8) Thrombocytopenia: Resolved Platelet count at time of admission 34,000 and fell as low as 10,000. UGI bleeding early in hospital course- resolved. Has received 2 bags pheresed irradiated platelets. Platelet count on (10/13), 32,000, then on (10/14), 47,000 Transfuse platelets as necessary. Now plts count normalized (164K, on 10/17) (9) Pancreatic cancer: Per Hematology/Oncology. (10) Hypokalemia: Serum potassium as low as 3.1. Replace and monitor, goal K >4 (11) Hypomagnesemia: Magnesium as low as 1.7. Replace and monitor, goal Mg>2 (12) Hypophosphatemia: Serum phosphorus as low as 1.2. Replace and monitor (13) DVT prophylaxis: No anticoagulants secondary to upper GI bleeding and thrombocytopenia. Plt count now normalized, can consider chem dvt ppx. Cont. SCDs and encourage ambulation. (14) Severe malnutrition: 15 pound weight loss since August. Underlying malignancy. Poor p.o. intake due to GI symptoms. Boost Breeze ordered. Seen by Nutrition. Severe protein calorie malnutrition. Continue diet as tolerated and supplements. Currently pt tolerating low residue diet. (15) Diarrhea: CT suggested colitis. Stool negative for C. difficile. Stool culture for routine enteric pathogens negative. Diarrhea could be secondary to chemo. Started Lomotil. Diarrhea now improved, stools seem more formed. Cont. lomotil QID. (16) Discharge planning issues: Discharge disposition to be determined. Plan for inpt rehab/ [facility]. Local Medical Oncology follow-up with Dr. Ortiz Torres. Also followed by Medical Oncology at [facility]. Admission and Anticipated Discharge Date Admission Date: October 08, 2019 Subjective Pt is sitting up in chair in NAD. Family at the bedside. No acute events overnight. Continues to have left UE and LE weakness. Nursing staff reported later yesterday that pt was able to move her LLE - very subtle movements, but family reports these movements were involuntary. Tolerates low residue diet. Asking about trying banana and rice, agreed to try those. No fever, chills, chest pain, shortness of breath, abd. pain, nausea or vomiting. Continues to have more frequent stools, reports that stools are now more formed. WBC down to 12.7K from 19K (and plt count normalized) Afebrile since 10/09 Pt evaluated by [facility]/ Dr. Archer, in preparation to d/c to in rehab. Review of Systems Review of Systems: All systems reviewed & are unremarkable except as noted in HPI & below ROS per HPI, all other systems reviewed and negative Constitutional: + weakness; no fever and no chills Respiratory: no cough and no dyspnea Cardiovascular: no chest pain and no palpitations Gastrointestinal: + diarrhea/loose stools (improved); no abdominal pain, no nausea and no vomiting Neurologic: + localized weakness (LLE, LUE weakness) Physical Exam Physical Exam: Constitutional:thin female pt sitting up in the bed, in no acute distress ENMT: NC/AT Mouth: no oral mucosal abnormality and no tongue abnormality, left facial droop Respiratory: no respiratory distress Auscultation: lungs clear to auscultation bilaterally, no wheezing, rhonchi noted Chest: port at upper right chest Cardiovascular: Rate/Rhythm: regular rate and regular rhythm Heart Sounds: no gallop Vessels: no JVD Extremities: no calf tenderness and no edema Gastrointestinal (Abdomen): Inspection/Auscultation: normal bowel sounds; abdomen not distended Percussion/Palpation: abdomen soft; abdomen nontender Musculoskeletal: Extremities: no cyanosis, moves RLE and RUE w/o difficulty, can not move LUE, LLE, LUE in a sling (for shoulder protection) Skin: no rashes, warm and dry Neurologic: PERRL, EOMI, mild left facial palsy, no dysarthria or aphasia, LUE & LLE motor strength 0/5, no sensory loss on the left noted Psychiatric: Orientation: alert and oriented x3, euthymic effect Results & Data ([facility]) Vital Signs (Past 12 Hours) Vital Signs Temp Pulse Resp BP Pulse Ox 10/18/19 07:13 36.6 C 93 H 16 108/69 98 10/18/19 02:42 36.8 C 97 H 16 98/63 L 98 Laboratory Results 10/18/19 10/18/19 Range/Units 05:18 05:16 WBC 12.71 H (4.8-10.8) K/uL RBC 3.44 L (4.2-5.4) M/uL Hgb 10.9 L (12.0-16.0) g/dL Hct 32.4 L (37-47) % MCV 94.2 (80-100) fL MCH 31.7 (25-34) pg MCHC 33.6 (32-36) g/dL RDW Std Deviation 58.0 H (36.4-46.3) fL RDW Coeff of Rajesh 17.2 H (11.5-14.5) % Plt Count 164 (130-400) K/uL MPV 11.5 H (7.4-10.4) fL Absolute Nucleated RBC 0.03 H (0-0) K/uL Nucleated RBC % (auto) 0.2 % Sodium 138 (136-145) mmol/L Potassium 4.3 D (3.5-5.1) mmol/L Chloride 107 (98-107) mmol/L Carbon Dioxide 27 (21-32) mmol/L Anion Gap 4.0 (3-11) BUN 7 (7-18) mg/dl Creatinine 0.61 (0.6-1.2) mg/dl Est Cr Clr Drug Dosing 94.0 ml/min Est GFR ( Amer) 111.0 Est GFR (Non-Af Amer) 95.8 BUN/Creatinine Ratio 10.7 (10-20) Glucose 95 (70-99) mg/dl Calcium 7.7 L (8.5-10.1) mg/dl Medications Administered Current Inpatient Medications Diphenoxylate HCl/Atropine (Lomotil) 1 tab PO QID COLT Stop: 11/15/19 16:59 Last Admin: 10/18/19 08:55 Dose: 1 tab Documented by: Heparin Sodium (Porcine) (Heparin Sod 100 Unit/Ml Flush) 5 ml FLUSH PRN PRN PRN Reason: Flush Stop: 11/10/19 00:59 Last Admin: 10/16/19 20:45 Dose: 5 ml Documented by: Promethazine HCl 12.5 mg/ (Sodium Chloride) 50.5 mls @ 202 mls/hr IV Q6H PRN PRN Reason: Nausea And Vomiting Stop: 11/07/19 20:21 Last Infusion: 10/12/19 13:29 Dose: Infused Documented by: Lorazepam (Ativan) 0.5 mg in 1 mls @ 1 mls/min IV Q4H PRN PRN Reason: Nausea Stop: 11/10/19 00:16 Last Admin: 10/14/19 11:40 Dose: 1 mls/min Documented by: Lorazepam (Ativan) 0.5 mg PO BID PRN PRN Reason: Anxiety Stop: 11/14/19 12:45 Last Admin: 10/17/19 12:45 Dose: 0.5 mg Documented by: Miscellaneous (Pending Order) 1 ea N/A QS COLT Stop: 11/14/19 15:59 Last Admin: 10/18/19 08:54 Dose: Not Given Documented by: Miscellaneous Information (Pharmacist Discharge Med Rec Consult) 1 ea N/A UD PRN PRN Reason: Consult Stop: 11/12/19 11:59 Morphine Sulfate (Morphine Sulfate) 3 mg IV Q4H PRN PRN Reason: Pain Stop: 10/22/19 16:30 Last Admin: 10/14/19 18:19 Dose: 3 mg Documented by: Ondansetron HCl (Zofran) 4 mg IV Q6H PRN PRN Reason: nausea Stop: 11/07/19 16:44 Last Admin: 10/12/19 16:53 Dose: 4 mg Documented by: Pantoprazole Sodium (Protonix) 40 mg PO BID COLT Stop: 11/14/19 20:59 Last Admin: 10/18/19 08:55 Dose: 40 mg Documented by: Sodium Chloride (Mccurtain Nasal) 1 sprays NA PRN PRN PRN Reason: Dryness Stop: 11/16/19 02:11 Zolpidem Tartrate (Ambien) 5 mg PO HS PRN PRN Reason: Sleep Stop: 11/13/19 13:22 Last Admin: 10/17/19 20:35 Dose: 5 mg Documented by:
[2019-10-18] MEDS: LORazepam 0.5 MG TAB PO PRN (13:59)
[2019-10-18] MEDS: ZOLPIDEM TARTRATE 5 MG TAB PO PRN (22:01)
[2019-10-19 05:55] LABS: Hematocrit (blood only) 33.6 % (37-47); Hemoglobin 11.1 g/dL (12.0-16.0); Mean Corpuscular Hemoglobin 30.8 pg (25-34); Mean Corpuscular Volume 93.3 fL (80-100); Mean Platelet Volume 11.1 fL (7.4-10.4); Platelet Count 200 K/uL (130-400); RDW Coefficient of Variation 16.8 % (11.5-14.5); RDW Standard Deviation 56.1 fL (36.4-46.3); White Blood Count 12.76 K/uL (4.8-10.8)
[2019-10-19 06:24] LABS: Albumin Level 1.7 gm/dl (3.4-5.0); Bilirubin Direct 0.1 mg/dl (0-0.2); Calcium 7.9 mg/dl (8.5-10.1); Est GFR (Non-African American) 95.8; Potassium 4.1 mmol/L (3.5-5.1)
[2019-10-19 06:27] LABS: Bilirubin,Total 0.5 mg/dl (0.2-1); Total Protein 4.5 gm/dl (6.4-8.2)
[2019-10-19] MEDS: DIPHENOXYLATE/ATROPINE 2.5/0.025MG TAB PO SCH ×2 (08:37→12:37)
[2019-10-19] MEDS: PANTOprazole 40 MG TAB PO SCH (08:37)
[2019-10-19 10:09] VITALS: BP 116/76; PULSE 101; TEMP 98.2; O2SAT 99
--- NOTE | 2019-10-19 10:50 | Hospitalist Progress Note ---
Date of Service October 19, 2019 Assessment & Plan (1) Neutropenic fever: Neutropenic fever associated with chemotherapy at time of admission. No cough or infiltrates on chest x-ray. UA showed leukocyte esterase, few WBC's, + bacteria; urine culture subsequently grew Klebsiella pneumoniae. Possible biliary source as discussed below. Was having loose stools and possible colitis noted on CT scan. Stool negative for C. difficile and stool culture negative for routine enteric pathogens. Initially received intravenous vancomycin and piperacillin/tazobactam. Stopped vancomycin when cultures negative for gram positive organisms and continued piperacillin / tazobactam to cover biliary and urinary tracts. Fever, neutropenia resolved. LFT's improved. Antibiotics discontinued. (2) Urinary tract infection: UA showed leukocyte esterase, few WBC's, + bacteria. Urine culture grew Klebsiella pneumoniae = UTI (present on admission) Treated with course of piperacillin / tazobactam. (3) Elevated LFTs: LFTs elevated at time of admission. CT demonstrated mild thickening of gallbladder wall, gas within the gallbladder lumen, mild pericholecystic stranding. Ultrasound demonstrated borderline gallbladder wall thickening with a few tiny stones and sludge, pneumobilia. Status post ERCP with stent placement on 07/04/2019 and then repeat ERCP for stent change on 08/28/2019. GI consulted; repeat ERCP or stent removal not recommended at this time. LFT's improved: Total bilirubin 2.3--> --> 0.5. AST 60 --> --> 25 ALT 114 --> --> 41. AP 259 --> --> 331. Completed course of piperacillin / tazobactam possible cholecystitis or cholangitis. (4) Acute upper GI bleed: Hematemesis with moderate amounts of gross blood. Received IV pantoprazole. Hemoglobin fell as discussed below. Transfuse as necessary to maintain adequate H&H; target hemoglobin at least greater than 8. GI consulted. Endoscopy deferred in light of pancytopenia and other issues. Transitioned to PO PPI. (5) Diarrhea: CT suggested colitis. Stool negative for C. difficile. Stool culture for routine enteric pathogens negative. Diarrhea could be secondary to chemo. Started Lomotil with improvement. Change Lomotil to PRN and adjust therapy as needed. (6) Anemia: Hemoglobin at time of admission 10.7 and fell as low as 7.8. Anemia probably secondary to combination of chemotherapy as well as acute blood loss anemia secondary to upper GI bleed. Transfusion goal adjusted to maintain hemoglobin at least greater than 10 in light of acute stroke on 10/12.. Received 2 units of irradiated leukocyte-reduced pRBC's. Hgb today = 11.1. Follow. (7) Neutropenia: Received Neulasta prior to admission. WBC at time of admission was 320 and fell as low as 100. Placed on neutropenic precautions. WBC subsequently ander at high at 19,000. Neutropenic precautions discontinued. WBC today = 12,760. (8) Thrombocytopenia: Platelet count at time of admission 34,000 and fell as low as 10,000. UGI bleeding early in hospital course- resolved. Has received 2 bags pheresed irradiated platelets. Platelet count this morning = 200,000. (9) Pancreatic cancer: Per Hematology/Oncology. (10) Hypokalemia: Serum potassium as low as 2.8. Hypokalemia probably secondary to diarrhea. Received replacement. K this morning = 4.1. Follow. (11) Hypomagnesemia: Magnesium as low as 1.7. Received replacement. Mg on 10/16 was 1.9. Follow. (12) Hypophosphatemia: Serum phosphorus as low as 1.2. Received replacement. Phos on 10/16 was 2.4. Follow. (13) Severe malnutrition: 15 pound weight loss since August. Underlying malignancy. Poor p.o. intake due to GI symptoms. Boost Breeze ordered. Seen by Nutrition. Severe protein calorie malnutrition. Continue diet as tolerated and supplements. (14) Stroke: Sudden onset of left hemiparesis morning of 10/12. Stroke alert called. Stat CT ordered and patient was transferred to ICU. Initial concern was possibility of a hemorrhagic stroke given patient's thrombocytopenia, but there was no intracranial hemorrhage. Pneumocephalus was noted within the right vertex / subarachnoid space. No large vessel occlusion noted on CT of head neck. Tele-stroke consultation with requested and case discussed with Neurology and Neurosurgery. Thrombolytic therapy contraindicated due to thrombocytopenia and recent UGI bleed and, furthermore, probably not indicated given the nature of the event. No indication for neurointerventional or neurosurgical intervention. MRI demonstrated acute infarct in the posterior right frontal lobe in the region of the previously noted pneumocephalus. Case was discussed further with Neurology at [facility] as well as Neurology at [facility]. Paradoxical air embolus with right to left shunt was considered. Hyperbaric O2 has been used in some cases of cerebral air embolism, but there is not much supporting literature and it was not recommended. Echo with bubble study showed patent foramen ovale. Etiology of suspected air embolus unclear. Nursing inspected IV tubing and connections and all appeared to be intact. Stroke protocol followed. Neurology consulted. PT/OT/JAVA GRAILS DEVELOPER evaluations requested. Seen by JAVA GRAILS DEVELOPER- did well with bedside swallowing evaluation. Aspirin therapy contraindicated because of severe thrombocytopenia; also not indicated due to nature of neurologic event. LDL-c was 46. Statin therapy not indicated given the nature of the event (paradoxical air embolism, not thrombotic or embolism of plaque / thrombus). There have been case reports of spontaneous paradoxical air embolism (e.g., severe sneezing, pneumatosis coli), but more likely there was an unrecognized air bubble in IV line or syringe that embolized to brain via PFO. All efforts should be made to inspect IV lines and syringes for bubbles and to use in-line filters or syringe filters when possible. Patient very motivated and did well with therapies. Arrangements being made for transfer to [facility]. (15) Patent foramen ovale: Paradoxical air embolism with right posterior frontal lobe. Echo with bubble study showed patent foramen ovale. Cardiology consulted. It was felt that the PFO was anatomically low risk for embolic thrombi. Repair of PFO not recommended at this time given patient's overall status; felt that risks of repair outweighed the benefits. All efforts should be made to inspect IV lines and syringes for bubbles and to use in-line filters or syringe filters when possible. (16) DVT prophylaxis: No anticoagulants initially due secondary to upper GI bleeding and thrombocytopenia. SCDs ordered. Risk of bleeding now low since thrombocytopenia and GI bleeding have resolved. Start enoxaparin 40 mg SQ daily. (17) Discharge planning issues: Needs inpatient rehab & arrangements are being made for transfer to [facility]. Local Medical Oncology follow-up with Dr. Ortiz Torres. Medical Oncology at [facility]. dispute coordinator contact info: Malinda Carroll RN, MSN Cancer Immunology / GI Clinical Research [facility], [address] [place] [address] Patient completed request for release of records for [facility]. Admission and Anticipated Discharge Date Admission Date: October 08, 2019 Subjective Recheck for multiple problems. Patient seen in their room around 0950. visiting. No new neurologic events. Persistent dense left hemiparesis. Occasional minimal involuntary movements of LLE noted. No headache. No visual changes. Swallowing without difficulty. Diarrhea much better on Lomotil. No reported melena or hematochezia. No nausea or vomiting for several days. Tolerating diet. Review of Systems: Constitutional- no fever. Cardiac- no chest pain. Pulmonary- no cough or SOB. GI- as noted above. - no urinary symptoms. Otherwise, as noted above. Anxious to get to [facility] for therapies. Physical Exam Constitutional: no acute distress Respiratory: no respiratory distress Auscultation: lungs clear to auscultation bilaterally Cardiovascular: Rate/Rhythm: regular rate and regular rhythm Heart Sounds: no gallop Vessels: no JVD Extremities: + edema (trace - 1+ pretibial edema); no calf tenderness Gastrointestinal (Abdomen): Inspection/Auscultation: normal bowel sounds; abdomen not distended Percussion/Palpation: abdomen soft; abdomen nontender Musculoskeletal: Extremities: no cyanosis Skin: no rashes, warm and dry Neurologic: PERRL, EOMI no facial palsy no dysarthria or aphasia dense left hemiparesis left plantar reflex equivocally upgoing Psychiatric: Orientation: alert and oriented x 3 Results & Data ([facility]) Vital Signs (Past 12 Hours) Vital Signs Temp Pulse Pulse Resp BP Pulse Ox 10/19/19 10:08 36.8 C 101 H 20 116/76 99 10/19/19 08:00 95 H 10/19/19 07:14 36.7 C 88 20 107/66 98 10/19/19 03:01 36.7 C 100 H 16 116/76 98 10/18/19 23:08 36.8 C 90 16 119/77 94 Laboratory Results 10/19/19 05:21 10/19/19 05:21
--- NOTE | 2019-10-19 12:02 | Discharge Summary ---
Date of Service Date of Admission: 10/08/19 Date of Discharge: 10/19/19 Admission HPI Per Admitting Provider 64-year-old female who presents to the ED by referral of her oncologist office for evaluation of abdominal pain, nausea, vomiting, diarrhea. Patient with history of pancreatic cancer currently undergoing chemotherapy. Was recently admitted to [facility] through 10/05 for near syncope and orthostasis due to dehydration in the setting of chemotherapy. Infection was ruled out. Shortly after returning home, patient developed nausea, vomiting, abdominal pain, diarrhea. Reports she has been having chronic abdominal cramping since her cancer diagnosis however this pain is different. Reports the pain as located in her mid abdomen and describes it as a persistent ache. She denies any hematemesis, coffee-ground emesis, bright red bleeding per rectum, dark tarry stools. No fevers or chills. She denies chest pain and shortness of breath. Reports lightheadedness and dizziness however no syncopal event. No fevers or chills. She denies any urinary symptoms. Patient presented to her oncologist office today for follow-up from recent hospital admission. She did not appear to be well. Labs were obtained showing pancytopenia and elevated bilirubin, other LFTs elevated however unchanged from recent baseline. Patient was sent to the ED for further evaluation. Upon arrival to the ED, patient was hypotensive at 79/44. BP improved after IVF. Labs show WBC 320, Hgb 10.7, platelets 34, lactic acid 2.5, total bili 2.3, AST 60, ALT 114, alk phos 259. CT ABD/pelvis suggest biliary stent patency and mild gallbladder wall thickening. Patient received IV Zofran, IVF. Principal Diagnosis neutropenic fever, probably secondary to Klebsiella pneumoniae UTI present on admission OTHER ACUTE / NEW DIAGNOSES pancytopenia, secondary to chemotherapy for pancreatic Ca UGI bleed diarrhea acute blood loss anemia elevated LFT's hypokalemia hypomagnesemia hypophosphatemia severe malnutrition acute stroke due to paradoxical air embolus with left hemiparesis patent foramen ovale Discharge Data Allergies Allergy/AdvReac Type Severity Reaction Status Date / Time codeine Allergy Unknown Unverified 10/08/19 14:15 Consultations 10/08/19 14:45 ED Decision to Admit Stat 10/09/19 14:36 Burn CD for patient Routine 10/09/19 15:36 Consult Gastroenterology Routine 10/13/19 12:01 Consult Case Management - Discharge Planning Routine Consult Neurology Routine 10/13/19 12:14 Consult Riveter Helper Routine 10/14/19 09:17 Consult Palliative Care Routine 10/15/19 07:00 Consult Cardiology Routine Ordered Studies 10/08/19 13:26 CT abd pelvis IV con only Stat 10/08/19 15:38 US gallbladder Routine 10/13/19 10:57 CT head/brain wo con Stat 10/13/19 11:01 CT angio head w con Stat CT angio neck with con Stat 10/13/19 11:59 MR brain wo con Stat Hospital Course (1) Neutropenic fever: Neutropenic fever associated with chemotherapy at time of admission. No cough or infiltrates on chest x-ray. UA showed leukocyte esterase, few WBC's, + bacteria; urine culture subsequently grew Klebsiella pneumoniae. Possible biliary source as discussed below. Was having loose stools and possible colitis noted on CT scan. Stool negative for C. difficile and stool culture negative for routine enteric pathogens. Initially received intravenous vancomycin and piperacillin/tazobactam. Stopped vancomycin when cultures negative for gram positive organisms and continued piperacillin / tazobactam to cover biliary and urinary tracts. Fever, neutropenia resolved. LFT's improved. Antibiotics discontinued. (2) Urinary tract infection: UA showed leukocyte esterase, few WBC's, + bacteria. Urine culture grew Klebsiella pneumoniae = UTI (present on admission) Treated with course of piperacillin / tazobactam. (3) Elevated LFTs: LFTs elevated at time of admission. CT demonstrated mild thickening of gallbladder wall, gas within the gallbladder lumen, mild pericholecystic stranding. Ultrasound demonstrated borderline gallbladder wall thickening with a few tiny stones and sludge, pneumobilia. Status post ERCP with stent placement on 07/04/2019 and then repeat ERCP for stent change on 08/28/2019. GI consulted; repeat ERCP or stent removal not recommended at this time. LFT's improved: Total bilirubin 2.3--> --> 0.5. AST 60 --> --> 25 ALT 114 --> --> 41. AP 259 --> --> 331. Completed course of piperacillin / tazobactam possible cholecystitis or cholangitis. (4) Acute upper GI bleed: Hematemesis with moderate amounts of gross blood. Received IV pantoprazole. Hemoglobin fell as discussed below. Transfuse as necessary to maintain adequate H&H as discussed below. GI consulted. Endoscopy deferred in light of pancytopenia and other issues. Transitioned to PO PPI. (5) Diarrhea: CT suggested colitis. Stool negative for C. difficile. Stool culture for routine enteric pathogens negative. Diarrhea probably secondary to chemo. Started Lomotil with improvement. Change Lomotil to PRN and adjust therapy as needed. (6) Anemia: Hemoglobin at time of admission 10.7 and fell as low as 7.8. Anemia probably secondary to combination of chemotherapy as well as acute blood loss anemia secondary to upper GI bleed. Initial threshold for transfusion was ~ 8. Transfusion goal adjusted to maintain hemoglobin at least greater than 10 in light of acute stroke on 10/12. Received 2 units of irradiated leukocyte-reduced pRBC's. Hgb day of discharge was 11.1. Follow. (7) Neutropenia: Received Neulasta prior to admission. WBC at time of admission was 320 and fell as low as 100. Placed on neutropenic precautions. WBC subsequently ander at high at 19,000. Neutropenic precautions discontinued. WBC day of discharge was 12,760. (8) Thrombocytopenia: Platelet count at time of admission 34,000 and fell as low as 10,000. UGI bleeding early in hospital course- resolved. Has received 2 bags pheresed irradiated platelets. Platelet count day of discharge was 200,000. (9) Hypokalemia: Serum potassium as low as 2.8. Hypokalemia probably secondary to diarrhea. Received replacement. K day of discharge was 4.1. Follow. (10) Hypomagnesemia: Magnesium as low as 1.7. Received replacement. Mg on 10/16 was 1.9. Follow. (11) Hypophosphatemia: Serum phosphorus as low as 1.2. Received replacement. Phos on 10/16 was 2.4. Follow. (12) Severe malnutrition: 15 pound weight loss since August. Underlying malignancy. Poor p.o. intake due to GI symptoms. Boost Breeze ordered. Seen by Nutrition. Severe protein calorie malnutrition. Continue diet as tolerated and supplements. (13) Stroke: Sudden onset of left hemiparesis morning of 10/12. Stroke alert called. Stat CT ordered and patient was transferred to ICU. Initial concern was possibility of a hemorrhagic stroke given patient's thrombocytopenia, but there was no intracranial hemorrhage. Pneumocephalus was noted within the right vertex / subarachnoid space. No large vessel occlusion noted on CT of head neck. Tele-stroke consultation with [facility] requested and case discussed with Neurology and Neurosurgery. Thrombolytic therapy contraindicated due to thrombocytopenia and recent UGI bleed and, furthermore, probably not indicated given the nature of the event. No indication for neurointerventional or neurosurgical intervention. MRI demonstrated acute infarct in the posterior right frontal lobe in the region of the previously noted pneumocephalus. Case was discussed further with Neurology at [facility] as well as Neurology at [facility]. Paradoxical air embolus with right to left shunt was suspected. Hyperbaric O2 has been used in some cases of cerebral air embolism, but there is not much supporting literature and it was not recommended. Echo with bubble study showed patent foramen ovale. Etiology of suspected air embolus was unclear- nursing inspected IV tubing and connections and all appeared to be intact. Stroke protocol followed. Neurology consulted. PT/OT/VARNISH DIPPER evaluations requested. Seen by VARNISH DIPPER- did well with bedside swallowing evaluation. Aspirin therapy contraindicated because of severe thrombocytopenia; also not indicated due to nature of neurologic event. LDL-c was 46. Statin therapy not indicated given the nature of the event (paradoxical air embolism, not thrombotic or embolism of plaque / thrombus). There have been case reports of spontaneous paradoxical air embolism (e.g., severe sneezing, pneumatosis coli), but more likely there was an unrecognized air bubble in IV line or syringe that embolized to brain via PFO. All efforts should be made to inspect IV lines and syringes for bubbles and to use in-line filters or syringe filters when possible. Patient very motivated and did well with therapies. Arrangements being made for transfer to [facility]. (14) Patent foramen ovale: Paradoxical air embolism to right posterior frontal lobe. Echo with bubble study showed patent foramen ovale. Cardiology consulted. It was felt that the PFO was anatomically low risk for embolic thrombi. Repair of PFO not recommended at this time given patient's overall status; felt that risks of repair outweighed the benefits. All efforts should be made to inspect IV lines and syringes for bubbles and to use in-line filters or syringe filters when possible. (15) Pancreatic cancer: Per Hematology/Oncology. (16) DVT prophylaxis: No anticoagulants initially due secondary to upper GI bleeding and thrombocytopenia. SCDs ordered. Risk of bleeding now low since thrombocytopenia and GI bleeding have resolved. Start enoxaparin 40 mg SQ daily. (17) Discharge planning issues: Needs inpatient rehab & arrangements are being made for transfer to [facility]. Local Medical Oncology follow-up with Dr. Ortiz Torres. Medical Oncology at [facility]. humanities coordinator contact info: Malinda Carroll RN, MSN Cancer Immunology / GI Clinical Research [facility], [address] [place] [address] Patient completed request for release of records for [facility]. Total Time Total Time Spent Total Time Spent (In Minutes): 60 Discharge Plan Discharge Items Patient Disposition: Transfer Inpatient Rehab Fac Reason For Visit: neutropenic fever Discharge Diagnosis: neutropenic fever, probably secondary to Klebsiella UTI UGI bleed anemia thrombocytopenia stroke with left matteo-paresis Condition on Discharge: Fair Activity: As commented below Activity Comment: As tolerated with assistance. Non-emergency contact: Primary Care Provider, Hospitalist and Oncologist Call non-emergency contact if: you have any medication questions, your symptoms worsen and your temperature is above 101 Follow-up/Referrals: Ortiz Torres MD [Primary Care Provider] - (Follow-up appointment will be made after stay at [facility].) Diet: Low Fat Addtl Attending Provider Instructions: FALL PRECAUTIONS PASSIVE ROM LUE & LLE at least q shift SKIN PRECAUTIONS reposition at least q 2 hrs heel protectors OTHER NURSING INSTRUCTIONS knee high TEDS, apply in a.m. and remove hs LABS please check CBC, BMP, Mg, phos twice a week until stable and then as clinically indicated please check INR with next labs NUTRITION follow-up nutritional assessment nutritional supplements PLEASE NOTE PATENT FORAMEN OVALE PFO with associated stroke attributed to paradoxical air embolus please use in-line filters for IV fluids / meds whenever possible please use filters on syringes for IV flushes whenever possible please take all precautions to assure that there are no air bubble in IV lines or syringes Thank you for receiving this patient in transfer. Please call if you have any questions. Marco A Dawson Pending Studies at Discharge: No Stand-Alone Forms: My [facility] Skilled Items Patient informed of condition?: Yes DNR: No Discharge Level of Care: Acute rehab Communicable Disease: No Discharge Prognosis: Improving Lines: None Urinary Catheter: No Medications and DC Order Prescriptions: New zolpidem 5 mg Tablet 5 mg PO HS PRN (Reason: insomnia) 10 Days Qty: 10 RF: 0 diphenoxylate-atropine 2.5-0.025 mg Tablet 1 tab PO Q6H PRN (Reason: diarrhea) Qty: 40 RF: 0 pantoprazole 40 mg Tablet,Delayed Release (Dr/Ec) 40 mg PO BID Qty: 60 RF: 0 enoxaparin [Lovenox] 40 mg/0.4 mL syringe 40 mg SQ DAILY 30 Days Qty: 12 RF: 0 Continued prochlorperazine maleate [Compazine] 5 mg Tablet 5 mg PO BID PRN (Reason: Nausea) RF: 0 ondansetron HCl [Zofran] 4 mg tablet 8 mg PO Q6H PRN (Reason: nausea and vomiting) RF: 0 Creon 6,000-19,000 -30,000 unit Capsule,Delayed Release(Dr/Ec) 1 cap PO TIDM RF: 0 loratadine [Claritin] 10 mg Tablet 10 mg PO DAILY RF: 0 Discontinued simethicone 125 mg Capsule 125 mg PO BID PRN (Reason: Gi Upset) RF: 0 docusate sodium [Colace] 100 mg Capsule 100 mg PO BID RF: 0 senna 8.6 mg Capsule 8.6 mg PO HS PRN (Reason: Constipation) RF: 0 oxycodone [OxyContin] 20 mg Tablet,Oral Only,Ext.Rel.12 Hr 20 mg PO Q12H PRN (Reason: Pain) RF: 0 Neulasta 6 mg/0.6mL Syringe 0 mg SUBCUT UD RF: 0 Prilosec OTC 20 mg Tablet,Delayed Release (Dr/Ec) 20 mg PO DAILY RF: 0 Discharge Orders: Discharge Order (Routine); Ordered 10/19/19 Ordered By: Marco A Velasquez/Other Patient Handouts: A1C Admission Data Admit Date/Time: 10/08/19 15:34 Attending Provider: Marco A Dawson Admit Provider: Pili Benedict Primary Care Provider: Ortiz Torres Other Providers: Pili Benedict ; Lexy Bernabe ; Jase Mejia ; Neil Piper ; Pinky Frazier ; Rickie Morel ; Marco A Dawson ; Henderson,Jarrell ; Jose E Espinoza at [place] ; [facility] ; Christiano Paulino
== END 2019-10-19 14:25 | DRG 808 ==
LOC: ED 13:04 → SUATTDRO 15:34 → 2W 15:34 → 1E 10-13 11:15 → 2S 10-14 11:12

== ENCOUNTER 2020-09-01 12:33 | Inpatient (IN) ==
[2020-09-01] MEDS ORDERED: SODIUM CHLORIDE 0.9% 1000ML 1,000 ML IV SCH ×2 (13:00→20:07)
[2020-09-01] MEDS ORDERED: ONDANSETRON INJ 2 MG/ML 2 ML VIAL IV STA (13:09)
[2020-09-01 14:27] LABS: Influenza A virus by PCR Negative (Neg); Influenza B virus by PCR Negative (Neg); RSV by PCR Negative (Neg); SARS CoV2 RNA(COVID-19) InHosp NEGATIVE (Negative)
--- NOTE | 2020-09-01 14:34 | XRay Report ---
XR chest 1V portable CLINICAL HISTORY: SEPSIS COMPARISON STUDY: 01/07/2020 FINDINGS: The cardiac and mediastinal contours are normal. There is no evidence of focal pulmonary co nsolidation. There is no evidence of failure. No pleural effusions are visualized.[There is a right-s ided A-Port catheter present. IMPRESSION: No active disease in the chest. ACT 112: Negative or not required by law. Electronically signed by: Juan Saenz M.D. 09/01/2020 2:33 PM
[2020-09-01 14:42] LABS: Mean Corpuscular Hgb Conc 34.8 g/dL (32-36)
[2020-09-01 14:48] LABS: INR 1.2 (0.9-1.1); Partial Thromboplastin Ratio 0.8; Partial Thromboplastin Time 23.6 Seconds (21.0-31.0); Prothrombin Time 12.1 Seconds (9.0-12.0)
[2020-09-01 14:52] LABS: Alanine Aminotransferase 150 U/L (12-78); Albumin Level 2.7 gm/dl (3.4-5.0); Aspartate Aminotransferase 87 U/L (15-37); BUN Creatinine Ratio 22.2 (10-20); Blood Urea Nitrogen 22 mg/dl (7-18); Calcium 8.1 mg/dl (8.5-10.1); Carbon Dioxide 25 mmol/L (21-32); Chloride 104 mmol/L (98-107); Creatinine Clr Calc Pharmacy 51.1 ml/min; Est GFR (African American) 70.2; Est GFR (Non-African American) 60.5; Glucose 136 mg/dl (70-99); Hematocrit (blood only) 45.1 % (37-47); Hemoglobin 15.7 g/dL (12.0-16.0); Lipase 21 U/L (73-393); Magnesium 1.8 mg/dl (1.8-2.4); Mean Corpuscular Hemoglobin 32.7 pg (25-34); Mean Platelet Volume 11.1 fL (7.4-10.4); Platelet Count 13 K/uL (130-400); Platelet Estimate SIGNIFIC DECREASED (Normal); Potassium 3.7 mmol/L (3.5-5.1); RDW Coefficient of Variation 13.9 % (11.5-14.5); RDW Standard Deviation 47.8 fL (36.4-46.3); Sodium 136 mmol/L (136-145); White Blood Count 0.07 K/uL (4.8-10.8)
[2020-09-01 14:57] LABS: Albumin Globulin Ratio 0.9 (0.9-2); Alkaline Phosphatase 255 U/L (45-117); Bilirubin,Total 2.1 mg/dl (0.2-1); Globulin 3.1 gm/dl (2.5-4.0); Total Protein 5.8 gm/dl (6.4-8.2); Troponin I < 0.015 ng/ml (0-0.045)
[2020-09-01] MEDS ORDERED: SODIUM CHLORIDE 0.9% 1000ML 1,000 ML IV ONE (14:57)
--- NOTE | 2020-09-01 15:39 | Emergency Department Note ---
Impression & Plan Neutropenic fever, Nausea & vomiting, Elevated lactic acid level, Total bilirubin, elevated ED Provider Note Provider: Luis Garcia MD DATE OF SERVICE:09/01/2020 CHIEF COMPLAINT: Fever, nausea vomiting HISTORY OF PRESENT ILLNESS: Patient is a 65-year-old female history of DVT on Eliquis, pancreatic cancer status post Whipple currently on chemotherapy and neutropenic, stroke, GI bleed, HHT and UTI presenting here today stating she began to feel ill yesterday. She reports she had a nosebleed on Sunday night and this lasted some durations with touch base with her doctor yesterday. Basic blood work was obtained yesterday. She reports that she decreased her Eliquis dosing in discussion with her doctor with this. She reports last night she began develop some fever type symptoms with nausea and vomiting. Denies any abdominal pain or chest pain. Denies shortness of breath or URI symptoms. She denies any syncope or falls. Reports has had loose stools 3-4 times overnight but no blood. No blood in the vomit. No recurrence of nosebleed reported. Patient did have a Whipple procedure at [facility] in April of this year and is currently on chemotherapy with last infusion a week ago. She reports that her doctor told her she is neutropenic. She did not take anything for the fever prior to arrival; did not take any Tylenol or aspirin/ibuprofen/NSAID. Patient states she did not take her morning medicines. Patient reports a history of C. difficile colitis but states this does not feel similar to the loose stools she is experiencing now. REVIEW OF SYSTEMS: A total of 10 review of systems was obtained and negative except as stated above in the HPI. PAST MEDICAL HISTORY: As noted above MEDICATIONS: Reviewed home medication list. SOCIAL HISTORY: Patient lives at home with PHYSICAL EXAM: GENERAL: alert and oriented in no acute distress on stretcher but fatigued in appearance. Oral temperature for me of 100.8 Celsius. Head: normocephalic and atraumatic EYES: No injection, discharge or icterus. NECK: Trachea midline. Supple. LUNGS: Airway patent. No retractions. Breath sounds clear HEART: Regular rate and rhythm. No chest wall tenderness ABDOMEN: Soft and non-tender, without guarding or rebound. SKIN: Acyanotic, warm, dry, without rashes EXTREMITIES: Without swelling, tenderness or deformity NEUROLOGICAL: No aphasia. No facial droop or slurred speech. Patient has some mild to moderate weakness of left arm and leg which she reports is chronic. EK bpm sinus tachycardia without PVC or PAC. No acute ST segment elevation or depressions noted. Inferior T wave flattening nonspecific changes are noted as well as in the anterior leads. QTc 449. CONTINUOUS CARDIAC MONITORING: was ordered and showed a heart rate of 92 bpm in normal sinus rhythm Patient's laboratory studies and imaging reviewed. Differential includes Infection, dehydration, metabolic abnormality, hypo/hyperglycemia, electrolyte disturbance, anemia, hypoxia, cardiac sources, intracerebral event, toxicologic, neurologic, as well as other pathologies. IMPRESSION/MEDICAL DECISION MAKING: Patient presents reporting fever as well as nausea and vomiting overnight with some mild loose stools. No blood reported in the vomiting or the stool. Patient is anticoagulated on Eliquis. Patient with a benign abdomen. Significant history of intra-abdominal surgery and with some slight LFT abnormalities and mildly elevated bilirubin of 2.1 imaging of the abdomen pelvis was obtained. Nausea improved with some Zofran here. Question if this could be possibly related just generalized illness. Neutropenic fever is of concern given neutropenia. Thrombocytopenia likely related to chemotherapy significantly low at 13. Patient later developed bit of a headache and a CT of the head was completed exclude intracranial bleed given her anticoagulation stat us and low platelet count; per radiology without evidence of intracranial bleed. No trauma is reported. No focal deficits that are new beyond prior stroke deficits and doubt acute CVA. Patient does not appear grossly meningitic. Chest x-ray appears clear and doubt pneumonia. Covid test was negative as well as influenza and RSV test. Procalcitonin elevated 11. Lactate elevated 3 patient did receive 2 L of IV fluid for resuscitation. Troponin undetectable and I doubt acute ACS. Discussed with her oncologist Dr. Torres via phone; did report that the patient received Neulasta recently and her count should improve. He was in agreement with the plan for admission, imaging, and cefepime. Tylenol will be given to help with her fever and headache. CT the abdomen pelvis per radiology report shows some edema around the pancreatic remnant without postoperative fluid collection but questions postsurgical edema versus acute pancreatitis with a little bit of thickening of the proximal jejunum and right hemicolon questions a possible enterocolitis. Lipase is not elevated and without abdominal pain doubt acute pancreatitis. Question this could be a possible enterocolitis as source for her fevers and symptoms. Patient has been covered with cefepime at this point and she was agreed with the plan for further care here at the hospital. The hospitalist team was contacted. DIAGNOSIS: Neutropenic fever, thrombocytopenia, nausea and vomiting DISPOSITION: Hospitalist will evaluate Patient was agreeable with this plan. Critical Care I have personally spent 33 minutes of critical care time in the direct management of this patient. This includes bedside care, interpretation of diagnostic studies, and testing, discussion with consultants, patient, and other required patient management activities. These 33 minutes is in excess of all separately billable procedures. Past Med/Surg History Medical History (Updated 09/01/20 @ 16:01 by Luis Garcia M.D.) Acute electrocardiogram changes Acute hypotension Acute lower GI bleeding Acute on chronic anemia Acute upper GI bleed Anemia Closed fracture of right hip requiring operative repair with malunion Diarrhea Discharge planning issues DVT (deep venous thrombosis) DVT prophylaxis Elevated lactic acid level Elevated LFTs Encounter for rehabilitation evaluation Epistaxis Goals of care, counseling/discussion Hematemesis Hemiplegia affecting left dominant side Hypokalemia Hypomagnesemia Hypophosphatemia Melena Neutropenia Neutropenic fever Pancreatic cancer Pancytopenia Patent foramen ovale Pneumocephalus Pulmonary embolism S/P admission to ICU (intensive care unit) Severe malnutrition Stroke Symptomatic anemia Thrombocytopenia Transaminitis Urinary tract infection Surgical History History of ERCP 07/05/2019 - biliary stricture, adenocarcinoma on cytology 08/28/2019 - biliary stricture, stent replaced History of esophagogastroduodenoscopy (EGD) EGD with EUS. 07/10/2019. pancreatic adenocarcinoma, enlarged lymph node, GB sludge Family History (Updated 01/22/20 @ 11:04 by Suyapa Alvarez RN) Mother , age 86 C. diff Cancer possible pancreas Father , age 82 prostate cancer No problems noted. Brother Cancer prostate met cancer and melanoma Brother Cancer melanoma Sister Gjbsw-Rjhli-Ansnc disease Sister No problems noted. Son No problems noted. Son No problems noted. 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 Feels Safe at Home: Yes Childhood Exposure to Second-Hand Smoke: No caffeine: Yes (one cup per day ) during the past year weight has: decreased > 10 lbs Dental Care, Regularly: Yes Physical Activity Frequency: 1-2 Times per Week Seatbelt Use: always Sunscreen Use: Yes Assistive Devices: Glasses Allergies Allergies Allergy/AdvReac Type Severity Reaction Status Date / Time FILTER REQUIRED WITH IV AdvReac Unknown Uncoded 09/01/20 14:53 FLUIDS Home Meds Home Medications Medication Instructions Recorded Confirmed loratadine [Claritin] 10 mg PO QAM 10/04/19 09/01/20 pantoprazole 40 mg PO DAILY 01/07/20 09/01/20 apixaban [Eliquis] 1.25 mg PO BID 09/01/20 09/01/20 Results & Data (ED) Vital Signs Vital Signs - 24 hr 09/01/20 12:36 09/01/20 13:05 09/01/20 13:09 Temperature 37.7 C H 38 C H Temperature Source Oral Oral Pulse Rate 121 H 107 H Pulse Rate from SpO2 Sensor 107 H Respiratory Rate 19 21 Respiratory Effort / Characteristics Non-Labored Respiratory Depth Normal Blood Pressure 91/68 L 119/53 L Blood Pressure Mean 75 75 Pulse Oximetry 96 98 Oxygen Delivery Method Room Air Room Air Sepsis Recent Fever Within 48 Hours Yes Sepsis New/Unexplained Change in Mental Status No Sepsis Action Taken by Nursing Physician Notified 09/01/20 13:23 09/01/20 13:32 09/01/20 13:38 Temperature Temperature Source Pulse Rate 107 H Pulse Rate from SpO2 Sensor 109 H Respiratory Rate 20 Respiratory Effort / Characteristics Non-Labored Spontaneous Respiratory Depth Blood Pressure 122/75 Blood Pressure Mean 90 Pulse Oximetry 97 99 Oxygen Delivery Method Room Air Room Air Sepsis Recent Fever Within 48 Hours Sepsis New/Unexplained Change in Mental Status Sepsis Action Taken by Nursing 09/01/20 14:00 09/01/20 14:30 09/01/20 15:00 Temperature Temperature Source Pulse Rate 101 H 93 H 96 H Pulse Rate from SpO2 Sensor 101 H 94 H Respiratory Rate 19 22 21 Respiratory Effort / Characteristics Respiratory Depth Blood Pressure 116/67 116/61 Blood Pressure Mean 83 79 Pulse Oximetry 98 98 Oxygen Delivery Method Room Air Room Air Sepsis Recent Fever Within 48 Hours Sepsis New/Unexplained Change in Mental Status Sepsis Action Taken by Nursing 09/01/20 15:30 09/01/20 15:38 Temperature 38.4 C H Temperature Source Oral Pulse Rate 93 H Pulse Rate from SpO2 Sensor 92 H Respiratory Rate 22 Respiratory Effort / Characteristics Non-Labored Spontaneous Respiratory Depth Normal Blood Pressure 123/61 Blood Pressure Mean 81 Pulse Oximetry 99 Oxygen Delivery Method Room Air Sepsis Recent Fever Within 48 Hours Sepsis New/Unexplained Change in Mental Status Sepsis Action Taken by Nursing Laboratory Data Result diagrams: 09/01/20 14:20 09/01/20 14:20 Lab Results 09/01/20 09/01/20 09/01/20 Range/Units 13:30 13:30 13:30 WBC (4.8-10.8) K/uL RBC (4.2-5.4) M/uL Hgb (12.0-16.0) g/dL Hct (37-47) % MCV (80-100) fL MCH (25-34) pg MCHC (32-36) g/dL RDW Std Deviation (36.4-46.3) fL RDW Coeff of Rajesh (11.5-14.5) % Plt Count (130-400) K/uL MPV (7.4-10.4) fL Immature Gran % (Auto) Neut % (Auto) Lymph % (Auto) [place] % (Auto) Eos % (Auto) Baso % (Auto) Neut # (Auto) Lymph # (Auto) [place] # (Auto) Eos # (Auto) Baso # (Auto) Immature Gran # (Auto) Neutrophils % (Manual) Band Neutrophils % Lymphocytes % (Manual) Prolymphocyte % Reactive Lymphs % (Man) Monocytes % (Manual) Eosinophils % (Manual) Basophils % (Manual) Metamyelocytes % (Man) Myelocytes % (Man) Promyelocytes % (Man) Blast Cells % (Manual) Plasma Cell % (Manual) Other Cells % Nucleated RBC % Neutrophils # (Manual) Band Neutrophils # Total Absolute Neuts Lymphocytes # (Manual) Prolymphocyte # Reactive Lymphs # Total Abs Lymphocytes Monocytes # (Manual) Eosinophils # (Manual) Basophils # (Manual) Metamyelocytes # (Man) Myelocytes # (Manual) Promyelocytes # (Man) Blast Cells # (Man) Plasma Cell # (Manual) Other Cells # Nucleated RBCs # (Man) Hypersegmented Neuts Hyposegmented Neuts Hypogranular Neuts Large Granular Lymphs # Lrg Granular Lymphs Hairy Cells Smudge Cells Toxic Granulation Toxic Vacuolation Dohle Bodies Jarad Rods Platelet Estimate (Normal) Hypogranular Platelets Clumped Platelets Giant Platelets Platelet Satelliting RBC Morphology Polychromasia Hypochromasia Poikilocytosis Basophilic Stippling Anisocytosis Microcytosis Macrocytosis Spherocytes Pappenheimer Bodies Sickle Cells Target Cells Tear Drop Cells Ovalocytes Stomatocytes [place] Bodies Echinocytes Acanthocytes (Spur) Rouleaux RBC Agglutinates Schistocytes RBC Morph Comment Sezary Cell PT (9.0-12.0) Seconds INR (0.9-1.1) APTT (21.0-31.0) Seconds PTT Ratio Sodium (136-145) mmol/L Potassium (3.5-5.1) mmol/L Chloride (98-107) mmol/L Carbon Dioxide (21-32) mmol/L Anion Gap (3-11) BUN (7-18) mg/dl Creatinine (0.6-1.2) mg/dl Est Cr Clr Drug Dosing ml/min Est GFR ( Amer) Est GFR (Non-Af Amer) BUN/Creatinine Ratio (10-20) Glucose (70-99) mg/dl Lactate (0.4-2.0) mmol/L Calcium (8.5-10.1) mg/dl Magnesium (1.8-2.4) mg/dl Total Bilirubin (0.2-1) mg/dl AST (15-37) U/L ALT (12-78) U/L Alkaline Phosphatase (45-117) U/L Troponin I (0-0.045) ng/ml Total Protein (6.4-8.2) gm/dl Albumin (3.4-5.0) gm/dl Globulin (2.5-4.0) gm/dl Albumin/Globulin Ratio (0.9-2) Lipase (73-393) U/L Procalcitonin (0-0.5) ng/ml COVID-19 Eval Order CovFluRsv at [facility] SARS-CoV-2 (PCR) NEGATIVE (Negative) Influenza Type A (PCR) Negative (Neg) Influ A Molecular Assay Cancelled Influenza Type B (PCR) Negative (Neg) Influ B Molecular Assay Cancelled RSV (RT-PCR) Negative (Neg) 09/01/20 09/01/20 09/01/20 Range/Units 14:20 14:20 14:20 WBC 0.07 L* (4.8-10.8) K/uL RBC 4.80 (4.2-5.4) M/uL Hgb 15.7 (12.0-16.0) g/dL Hct 45.1 (37-47) % MCV 94.0 (80-100) fL MCH 32.7 (25-34) pg MCHC 34.8 (32-36) g/dL RDW Std Deviation 47.8 H (36.4-46.3) fL RDW Coeff of Rajesh 13.9 (11.5-14.5) % Plt Count 13 L* (130-400) K/uL MPV 11.1 H (7.4-10.4) fL Immature Gran % (Auto) Cancelled Neut % (Auto) Cancelled Lymph % (Auto) Cancelled [place] % (Auto) Cancelled Eos % (Auto) Cancelled Baso % (Auto) Cancelled Neut # (Auto) Cancelled Lymph # (Auto) Cancelled [place] # (Auto) Cancelled Eos # (Auto) Cancelled Baso # (Auto) Cancelled Immature Gran # (Auto) Cancelled Neutrophils % (Manual) Cancelled Band Neutrophils % Cancelled Lymphocytes % (Manual) Cancelled Prolymphocyte % Cancelled Reactive Lymphs % (Man) Cancelled Monocytes % (Manual) Cancelled Eosinophils % (Manual) Cancelled Basophils % (Manual) Cancelled Metamyelocytes % (Man) Cancelled Myelocytes % (Man) Cancelled Promyelocytes % (Man) Cancelled Blast Cells % (Manual) Cancelled Plasma Cell % (Manual) Cancelled Other Cells % Cancelled Nucleated RBC % Cancelled Neutrophils # (Manual) Cancelled Band Neutrophils # Cancelled Total Absolute Neuts Cancelled Lymphocytes # (Manual) Cancelled Prolymphocyte # Cancelled Reactive Lymphs # Cancelled Total Abs Lymphocytes Cancelled Monocytes # (Manual) Cancelled Eosinophils # (Manual) Cancelled Basophils # (Manual) Cancelled Metamyelocytes # (Man) Cancelled Myelocytes # (Manual) Cancelled Promyelocytes # (Man) Cancelled Blast Cells # (Man) Cancelled Plasma Cell # (Manual) Cancelled Other Cells # Cancelled Nucleated RBCs # (Man) Cancelled Hypersegmented Neuts Cancelled Hyposegmented Neuts Cancelled Hypogranular Neuts Cancelled Large Granular Lymphs Cancelled # Lrg Granular Lymphs Cancelled Hairy Cells Cancelled Smudge Cells Cancelled Toxic Granulation Cancelled Toxic Vacuolation Cancelled Dohle Bodies Cancelled Jarad Rods Cancelled Platelet Estimate SIGNIFIC DECREASED (Normal) Hypogranular Platelets Cancelled Clumped Platelets Cancelled Giant Platelets Cancelled Platelet Satelliting Cancelled RBC Morphology Cancelled Polychromasia Cancelled Hypochromasia Cancelled Poikilocytosis Cancelled Basophilic Stippling Cancelled Anisocytosis Cancelled Microcytosis Cancelled Macrocytosis Cancelled Spherocytes Cancelled Pappenheimer Bodies Cancelled Sickle Cells Cancelled Target Cells Cancelled Tear Drop Cells Cancelled Ovalocytes Cancelled Stomatocytes Cancelled [place] Bodies Cancelled Echinocytes Cancelled Acanthocytes (Spur) Cancelled Rouleaux Cancelled RBC Agglutinates Cancelled Schistocytes Cancelled RBC Morph Comment Cancelled Sezary Cell Cancelled PT (9.0-12.0) Seconds INR (0.9-1.1) APTT (21.0-31.0) Seconds PTT Ratio Sodium 136 (136-145) mmol/L Potassium 3.7 (3.5-5.1) mmol/L Chloride 104 (98-107) mmol/L Carbon Dioxide 25 (21-32) mmol/L Anion Gap 7.0 (3-11) BUN 22 H (7-18) mg/dl Creatinine 0.98 (0.6-1.2) mg/dl Est Cr Clr Drug Dosing 51.1 ml/min Est GFR ( Amer) 70.2 Est GFR (Non-Af Amer) 60.5 BUN/Creatinine Ratio 22.2 H (10-20) Glucose 136 H (70-99) mg/dl Lactate (0.4-2.0) mmol/L Calcium 8.1 L (8.5-10.1) mg/dl Magnesium 1.8 (1.8-2.4) mg/dl Total Bilirubin 2.1 H (0.2-1) mg/dl AST 87 H (15-37) U/L ALT 150 H (12-78) U/L Alkaline Phosphatase 255 H (45-117) U/L Troponin I < 0.015 (0-0.045) ng/ml Total Protein 5.8 L (6.4-8.2) gm/dl Albumin 2.7 L (3.4-5.0) gm/dl Globulin 3.1 (2.5-4.0) gm/dl Albumin/Globulin Ratio 0.9 (0.9-2) Lipase 21 L (73-393) U/L Procalcitonin 11.01 H (0-0.5) ng/ml COVID-19 Eval Order SARS-CoV-2 (PCR) (Negative) Influenza Type A (PCR) (Neg) Influ A Molecular Assay Influenza Type B (PCR) (Neg) Influ B Molecular Assay RSV (RT-PCR) (Neg) 09/01/20 09/01/20 Range/Units 14:20 14:20 WBC (4.8-10.8) K/uL RBC (4.2-5.4) M/uL Hgb (12.0-16.0) g/dL Hct (37-47) % MCV (80-100) fL MCH (25-34) pg MCHC (32-36) g/dL RDW Std Deviation (36.4-46.3) fL RDW Coeff of Rajesh (11.5-14.5) % Plt Count (130-400) K/uL MPV (7.4-10.4) fL Immature Gran % (Auto) Neut % (Auto) Lymph % (Auto) [place] % (Auto) Eos % (Auto) Baso % (Auto) Neut # (Auto) Lymph # (Auto) [place] # (Auto) Eos # (Auto) Baso # (Auto) Immature Gran # (Auto) Neutrophils % (Manual) Band Neutrophils % Lymphocytes % (Manual) Prolymphocyte % Reactive Lymphs % (Man) Monocytes % (Manual) Eosinophils % (Manual) Basophils % (Manual) Metamyelocytes % (Man) Myelocytes % (Man) Promyelocytes % (Man) Blast Cells % (Manual) Plasma Cell % (Manual) Other Cells % Nucleated RBC % Neutrophils # (Manual) Band Neutrophils # Total Absolute Neuts Lymphocytes # (Manual) Prolymphocyte # Reactive Lymphs # Total Abs Lymphocytes Monocytes # (Manual) Eosinophils # (Manual) Basophils # (Manual) Metamyelocytes # (Man) Myelocytes # (Manual) Promyelocytes # (Man) Blast Cells # (Man) Plasma Cell # (Manual) Other Cells # Nucleated RBCs # (Man) Hypersegmented Neuts Hyposegmented Neuts Hypogranular Neuts Large Granular Lymphs # Lrg Granular Lymphs Hairy Cells Smudge Cells Toxic Granulation Toxic Vacuolation Dohle Bodies Jarad Rods Platelet Estimate (Normal) Hypogranular Platelets Clumped Platelets Giant Platelets Platelet Satelliting RBC Morphology Polychromasia Hypochromasia Poikilocytosis Basophilic Stippling Anisocytosis Microcytosis Macrocytosis Spherocytes Pappenheimer Bodies Sickle Cells Target Cells Tear Drop Cells Ovalocytes Stomatocytes [place] Bodies Echinocytes Acanthocytes (Spur) Rouleaux RBC Agglutinates Schistocytes RBC Morph Comment Sezary Cell PT 12.1 H (9.0-12.0) Seconds INR 1.2 H (0.9-1.1) APTT 23.6 (21.0-31.0) Seconds PTT Ratio 0.8 Sodium (136-145) mmol/L Potassium (3.5-5.1) mmol/L Chloride (98-107) mmol/L Carbon Dioxide (21-32) mmol/L Anion Gap (3-11) BUN (7-18) mg/dl Creatinine (0.6-1.2) mg/dl Est Cr Clr Drug Dosing ml/min Est GFR ( Amer) Est GFR (Non-Af Amer) BUN/Creatinine Ratio (10-20) Glucose (70-99) mg/dl Lactate 3.0 H* (0.4-2.0) mmol/L Calcium (8.5-10.1) mg/dl Magnesium (1.8-2.4) mg/dl Total Bilirubin (0.2-1) mg/dl AST (15-37) U/L ALT (12-78) U/L Alkaline Phosphatase (45-117) U/L Troponin I (0-0.045) ng/ml Total Protein (6.4-8.2) gm/dl Albumin (3.4-5.0) gm/dl Globulin (2.5-4.0) gm/dl Albumin/Globulin Ratio (0.9-2) Lipase (73-393) U/L Procalcitonin (0-0.5) ng/ml COVID-19 Eval Order SARS-CoV-2 (PCR) (Negative) Influenza Type A (PCR) (Neg) Influ A Molecular Assay Influenza Type B (PCR) (Neg) Influ B Molecular Assay RSV (RT-PCR) (Neg) Administered Medications Discontinued Medications Acetaminophen (Acetaminophen 325 Mg Tab) 650 mg PO NOW STA Stop: 09/01/20 16:13 Last Admin: 09/01/20 16:35 Dose: 650 mg Documented by: [id number] Sodium Chloride (Nss 1000ml) 1,000 mls @ 999 mls/hr IV .Q1H1M COLT Stop: 09/01/20 13:53 Last Infusion: 09/01/20 15:15 Dose: 0 mls/hr Documented by: [id number] Admin: 09/01/20 14:14 Dose: 999 mls/hr Documented by: [id number] Sodium Chloride (Nss 1000ml) 1,000 mls @ 999 mls/hr IV .Q1H1M ONE Stop: 09/01/20 15:57 Last Admin: 09/01/20 15:37 Dose: 999 mls/hr Documented by: [id number] Ioversol (Ioversol 100ml) 93 ml IV ONCE ONE Stop: 09/01/20 16:05 Last Admin: 09/01/20 16:06 Dose: 93 ml Documented by: [id number] Ondansetron HCl (Ondansetron Inj 2 Mg/Ml 2 Ml Vial) 4 mg IV NOW STA Stop: 09/01/20 13:10 Last Admin: 09/01/20 14:14 Dose: 4 mg Documented by: [id number] Discharge Plan Visit Data Chief Complaint: Referred by Doctor Stated Complaint: REFERRED BY DR TORRES FOR ILLNESS ED Provider: Luis Garcia Discharge Problem: Neutropenic fever, Nausea & vomiting, Elevated lactic acid level, Total bilirubin, elevated Patient Disposition: Being Evaluated by Hospitalist Forms Stand Alone Forms: My [facility] Prescriptions Prescriptions: No Action loratadine [Claritin] 10 mg Tablet 10 mg PO QAM RF: 0 pantoprazole 40 mg tablet,delayed release (DR/EC) 40 mg PO DAILY RF: 0 Eliquis 5 mg tablet 1.25 mg PO BID RF: 0 Referrals Referrals: Michelle Torres MD [Primary Care Provider] - Discharge Problem: Nausea & vomiting Qualifiers: Vomiting type: unspecified Vomiting Intractability: non-intractable Qualified Code(s): R11.2 - Nausea with vomiting, unspecified
[2020-09-01] MEDS ORDERED: OPTIRAY 320 100ml IV ONE (16:04)
[2020-09-01] MEDS ORDERED: ACETAMINOPHEN 325 MG TAB PO STA (16:12)
--- NOTE | 2020-09-01 16:17 | CT Scan Report ---
CT SCAN OF THE BRAIN WITHOUT IV CONTRAST CLINICAL HISTORY: Headache. Thrombocytopenia. COMPARISON STUDY: CT of the brain dated 10/13/2019. TECHNIQUE: Unenhanced axial CT scan of the brain is performed from the vertex to the skull base. A d ose lowering technique was utilized adhering to the principles of ALARA. CT DOSE: 883.38 mGy.cm FINDINGS: Brain parenchyma: Right frontal encephalomalacia is consistent with a remote insult. There is no hemo rrhage, mass effect, or evidence of acute territorial ischemia by CT criteria. Lemus-white matter diff erentiation is preserved. No extra-axial fluid collection is seen. Ventricles, sulci, cisterns: Normal in configuration. Intracranial vasculature: The visualized intracranial vasculature at the skull base is normal in appe arance. Calvarium: Unremarkable. Sinuses and mastoids: The visualized paranasal sinuses are clear. The mastoid air cells are well pneu matized. Orbits: The bony orbits are grossly intact. IMPRESSION: There is no hemorrhage, mass effect, or evidence of acute territorial ischemia by CT [place]. ACT 112: Negative or not required by law. Electronically signed by: Latrell San M.D. 09/01/2020 4:16 PM
--- NOTE | 2020-09-01 16:29 | CT Scan Report ---
ABDOMEN AND PELVIS CT WITH IV CONTRAST HISTORY: Acute fever and nausea status post chemotherapy. History of prior Whipple procedure. History of pancreatic carcinoma chemo, whipple sept, fever, nausea TECHNIQUE: Multiaxial CT images of the abdomen and pelvis were performed following the IV administrat ion of 93 cc of Optiray 320, A dose lowering technique was utilized adhering to the principles of AL NAKUL. COMPARISON STUDY: CT abdomen and pelvis 01/05/2020. FINDINGS: Imaged inferior cardiac chambers are unremarkable. Distal tip of [id number] catheter noted within the right atrium. 5 mm nodular densities suggestive of a pulmonary vessel is partially imaged within the right lower lobe on image 1 series 5. Mild bibasilar atelectasis. Study secondary to upper extrem ity positioning. There is no pneumatosis or pneumoperitoneum. Unremarkable spleen. The adrenal glands are within normal limits. Surgically absent gallbladder. Hepa tic steatosis. There is patency of the hepatic and portal veins. There is persistent attenuation of t he superior mesenteric vein which was previously noted at the level of the pancreatic head mass. Post operative changes of interval Whipple procedure with persistent mild ductal prominence of the pancrea tic tail. There is edema surrounding the pancreatic remnant with edema and trace fluid within the les ser sac extending into the mid mesentery. Additionally, there is mild wall thickening involving a few loops of jejunum within the upper abdomen with perienteric stranding. A few prominent lymph nodes of the mid mesentery measure up to 7 mm. Precaval lymph nodes measure up to 9 mm. No drainable fluid co llection. There is partial distention with mild wall thickening of the ascending colon. Noninflamed a ppendix. Unremarkable kidneys. Probable cyst of the superior pole left kidney, 8 mm. Mild urinary bladder dist ention. Probable fibroid of the uterine fundus, 9 mm. No adnexal mass lesion. Unremarkable soft tissu es. Degenerative changes of the spine, pelvis and hips. ORIF hardware of the proximal right femur. Il l-defined 2.0 cm lesion of the L1 vertebral body with mild peripheral sclerosis, unchanged from juan rison. T9 hemangioma. IMPRESSION: 1. Interval Whipple procedure with resection of the previously noted mass of the pancreatic head/neck junction. 2. There is edema surrounding the pancreatic remnant with edema and trace fluid extending into the mi d mesentery. Findings may be postsurgical or may reflect an acute pancreatitis. No postoperative flui d collection. 3. Mild wall thickening is noted involving a few loops of proximal jejunum and also the right hemicol on. Correlate clinically to exclude a nonspecific enterocolitis. 4. No pneumoperitoneum. 5. Hepatic steatosis. 6. Additional findings as above. ACT 112: Negative or not required by law. The above report was generated using voice recognition software. It may contain grammatical, syntax o r spelling errors. Electronically signed by: Danny Roa M.D. 09/01/2020 4:27 PM
--- NOTE | 2020-09-01 16:51 | Electrocardiogram Report ---
Test Reason : Blood Pressure : / mmHG Vent. Rate : 104 BPM Atrial Rate : 104 BPM P-R Int : 120 ms QRS Dur : 090 ms QT Int : 342 ms P-R-T Axes : 072 082 049 degrees QTc Int : 449 ms Sinus tachycardia Incomplete right bundle branch block Nonspecific T wave abnormality Abnormal ECG When compared with ECG of 07-JAN-2020 15:19, Non-specific change in ST segment in Anterior leads Confirmed by Shan Hurt ([id number]) on 09/01/2020 4:51:32 PM Referred By: Confirmed By:Kody Hurt
[2020-09-01 17:01] LABS: Appearance Urine Clear (Clear); Bacteria Urine Automated 3+ (Negative); Bilirubin Urine Negative (Negative); Blood Urine 2+ (Negative); Cast Urine Automated 0 /lpf (0-5); Color Urine Orange; Glucose Urine UA Negative (Negative); Ketones Urine Negative (Negative); Leukocyte Esterase Urine Negative (Negative); Nitrite Urine Positive (Negative); Protein Urine Negative (Negative); RBC Urine Automated 0-4 /hpf (0-4); Specific Gravity Urine 1.021 (1.000-1.030); Urobilinogen Urine Negative (Negative); pH Urine 5.5 (4.5-7.5)
[2020-09-01] MEDS ORDERED: CEFEPIME CONSULT ACTIVE PRN (17:07)
[2020-09-01] MEDS ORDERED: VANCOMYCIN CONSULT ACTIVE PRN (17:07)
--- NOTE | 2020-09-01 17:14 | Hospitalist Progress Note ---
Date of Service September 01, 2020 Assessment & Plan (1) Lactic acidosis: Admission and Anticipated Discharge Date Admission Date: Generalized weakness/febrile at home Neutropenic fever Thrombocytopenia Lactic acidosis COVID-19 ruled out Patient presents with generalized weakness has been going on for the last 2 days. Reports she has been febrile at home. 2 days ago she had a nosebleed and was asked to decrease further Eliquis dose by her PCP. Patient have completed therapy/radiation therapy prior to her surgical intervention of Whipple procedure in April at [facility]. She recently had her first chemotherapy last week. Has been feeling weak since then. Denies any recent travel. Denies any exposure to any sick individual. Denies any chest pain, shortness breath, sore throat or any palpitations. Denies any abdominal pain. Does have chronic diarrhea that is not new. Was nauseous earlier and then had episodes of vomiting but denies any hematemesis. Have had nosebleed, however denies any bright red blood per rectum or any melena. Appetite is okay. Results & Data Results & Data ([facility]) Vital Signs (Past 12 Hours) Vital Signs Temp Pulse Resp BP Pulse Ox 09/01/20 15:38 38.4 C H 09/01/20 15:30 93 H 22 123/61 99 09/01/20 15:00 96 H 21 09/01/20 14:30 93 H 22 116/61 98 09/01/20 14:00 101 H 19 116/67 98 09/01/20 13:32 107 H 20 122/75 99 09/01/20 13:23 97 09/01/20 13:09 38 C H 09/01/20 13:05 107 H 21 119/53 L 98 09/01/20 12:36 37.7 C H 121 H 19 91/68 L 96
--- NOTE | 2020-09-01 17:21 | History & Physical Report ---
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 Patient meets severe sepsis criteria per current CMS guidelines secondary to fever, tachycardia and neutropenia. Initial lactic acid 3.0, repeat after 2 L of IVF 3.1. Blood and urine cultures were obtained. Procalcitonin 11.01. Source: CT abdomen pelvis concerning for possible enterocolitis, urinalysis also consistent with likely infection although patient asymptomatic In ED she did receive IV cefepime. Admit to PCU Broad-spectrum IV antibiotics vancomycin, cefepime and Flagyl Discussed with Dr. Torres -her oncologist Received Neulasta 08/27 -expects white count to rebound Give 500 mL IVF bolus x1 now secondary to persistent lactic acidosis, trend Maintenance fluids to be given after 500 bolus Blood cultures, urine cultures and stool cultures pending encourage spirometry - atelectasis on CT (4) Elevated LFTs: ALT 150, AST 87, total bilirubin 2.1, alk phos 255 Possibly in setting of sepsis Also known pancreatic CA, history of biliary stent Repeat LFTs in a.m., consider GI consult (5) Carcinoma of head of pancreas: s/p Chemo, XRT and whipple procedure Now currently undergoing adjuvant chemotherapy x4 treatment Received first treatment 08/26/2020 5 FU s/p neulasta on 08/[address] Ortiz Torres - discussed case with him Dr. Torres wishes for updates and may address oncologic concerns with him (6) Thrombocytopenia: plt 13k, on 08/[address] 89 s/p recent chemo infusion 08/26 hx of HHT transfuse if < 10k or signs of bleeding type and screen ordered, hold 1 pack of plts no current signs of bleeding (7) DVT prophylaxis: hx of DVT/PE 01/2020 hold eliquis until plt count > 50k per Dr. Torres (oncology) Disposition: admit to PCU Follow up: PCP Dr. Michelle Torres upon discharge Pt was seen and examined in collaboration with Dr. Cordova, please see addendum History of Present Illness Chief Complaint: Fever, chills and GI symptoms x1 day. 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 Of significance patient's last chemotherapy dose was 08/26/2020. She received Neulasta injection on 08/27/2020. She had been doing well until yesterday and early this morning when she became febrile, chills, sweats, nausea, vomiting and diarrhea. She chronically has diarrhea secondary to Whipple procedure and feels this is at baseline. She also admits to having epistaxis for approximately 2 hours 2 days ago. She has not had another epistaxis since. She contacted her oncologist who recommended she reduce her dose of Eliquis from 2.5 mg twice daily to 1.25 mg twice daily. Also stopped her aspirin. She denies any hemoptysis, melena, hematochezia or hematuria. She does have history of C. difficile but feels symptoms are different. She also elicits to being occasionally dizzy and having a dull frontal headache. She denies lightheadedness, syncope, chest pain, shortness of breath, cough, URI symptoms, abdominal pain, dysuria, increased urgency or frequency with urination. She lives at home with her and does ambulate with a cane. She does have some limitation secondary to prior stroke. She did not take any of her medications this morning. Appetite has been normal. In ED she was febrile with a T-max of 38.4. She was otherwise hemodynamically stable. She does meet sepsis criteria secondary to fever, tachycardia and n eutropenia. Initial lactic acid was 3.0. Blood cultures and urine cultures were obtained. She received 2 L of IV fluid and IV cefepime. Allergies Allergy/AdvReac Type Severity Reaction Status Date / Time FILTER REQUIRED WITH IV AdvReac Unknown Uncoded 09/01/20 14:53 FLUIDS Home Medications Medication Instructions Recorded Confirmed Type loratadine [Claritin] 10 mg PO QAM 10/04/19 09/01/20 History pantoprazole 40 mg PO DAILY 01/07/20 09/01/20 History apixaban [Eliquis] 1.25 mg PO BID 09/01/20 09/01/20 History Past Med/Surg History Medical History (Updated 09/01/20 @ 17:34 by Cathryn Thomas PA-C) Anemia Closed fracture of right hip requiring operative repair with malunion DVT prophylaxis Elevated lactic acid level Elevated LFTs Hemiplegia affecting left dominant side Neutropenia Neutropenic fever Pancreatic cancer Patent foramen ovale Pneumocephalus Pulmonary embolism Severe malnutrition Stroke Thrombocytopenia Transaminitis Urinary tract infection Surgical History History of ERCP 07/05/2019 - biliary stricture, adenocarcinoma on cytology 08/28/2019 - biliary stricture, stent replaced History of esophagogastroduodenoscopy (EGD) EGD with EUS. 07/10/2019. pancreatic adenocarcinoma, enlarged lymph node, GB sludge Family History Mother , age 86 C. diff Cancer possible pancreas Father , age 82 prostate cancer No problems noted. Brother Cancer prostate met cancer and melanoma Brother Cancer melanoma Sister Moxoe-Tgqwu-Sxgjm disease Sister No problems noted. Son No problems noted. Son No problems noted. 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 Other Information That Helps Us Care for You: No Feels Safe at Home: Yes Safety Concerns: Feels Safe At This Time Childhood Exposure to Second-Hand Smoke: No caffeine: Yes (one cup per day ) during the past year weight has: decreased > 10 lbs Dental Care, Regularly: Yes Physical Activity Frequency: 1-2 Times per Week Seatbelt Use: always Sunscreen Use: Yes Assistive Devices: Cane and Glasses Review of Systems Review of Systems: All systems reviewed & are unremarkable except as noted in HPI & below Physical Exam Physical Exam: Constitutional: WD/WN, thin, female, vitals as above, NAD, sitting up in bed, pleasant, conversing easily Head: Normocephalic, Atraumatic Eyes: PERRL, conjunctivae normal, anicteric sclerae ENMT: external ear and nose normal, oropharynx normal Neck: trachea midline, no thyromegaly normal visual inspection Respiratory: normal respiratory effort, lungs clear to auscultation, no wheeze, rales, rhonchi. Normal insp/exp effort, no accessory muscle use Cardiovascular: RRR, no murmur, no edema Vessels: no JVD or carotid bruit Chest: normal inspection of chest Abdomen: normal bowel sounds, soft, nontender, no hepatosplenomegaly Musculoskeletal: no cyanosis or clubbing, extremities motor strength 5/5, LUE 3/5 LLE 3/5 Skin: no rashes, warm and dry normal turgor Neurologic: PERRL, EOMI, accommodation nl, no face palsy, no dysarthria CN's II-XI intact bilaterally and moves all extremities Psychiatric: A+Ox3, euthymic affect : deferred Results & Data Results & Data ([facility]) Vital Signs (Past 12 Hours) Vital Signs Temp Pulse Resp BP Pulse Ox 09/01/20 15:38 38.4 C H 09/01/20 15:30 93 H 22 123/61 99 09/01/20 15:00 96 H 21 09/01/20 14:30 93 H 22 116/61 98 09/01/20 14:00 101 H 19 116/67 98 09/01/20 13:32 107 H 20 122/75 99 09/01/20 13:23 97 09/01/20 13:09 38 C H 09/01/20 13:05 107 H 21 119/53 L 98 09/01/20 12:36 37.7 C H 121 H 19 91/68 L [address]: Brain parenchyma: Right frontal encephalomalacia is consistent with a remote insult. There is no hemorrhage, mass effect, or evidence of acute territorial ischemia by CT criteria. Lemus-white matter differentiation is preserved. No extra-axial fluid collection is seen. Ventricles, sulci, cisterns: Normal in configuration. Intracranial vasculature: The visualized intracranial vasculature at the skull base is normal in appearance. Calvarium: Unremarkable. Sinuses and mastoids: The visualized paranasal sinuses are clear. The mastoid air cells are well pneumatized. Orbits: The bony orbits are grossly intact. IMPRESSION: There is no hemorrhage, mass effect, or evidence of acute territorial ischemia by CT criteria. CT A/P: IMPRESSION: 1. Interval Whipple procedure with resection of the previously noted mass of the pancreatic head/neck junction. 2. There is edema surrounding the pancreatic remnant with edema and trace fluid extending into the mid mesentery. Findings may be postsurgical or may reflect an acute pancreatitis. No postoperative fluid collection. 3. Mild wall thickening is noted involving a few loops of proximal jejunum and also the right hemicolon. Correlate clinically to exclude a nonspecific enterocolitis. 4. No pneumoperitoneum. 5. Hepatic steatosis. 6. Additional findings as above. CXR: IMPRESSION: No active disease in the chest. Medications Administered Discontinued Medications Acetaminophen (Acetaminophen 325 Mg Tab) 650 mg PO NOW STA Stop: 09/01/20 16:13 Last Admin: 09/01/20 16:35 Dose: 650 mg Documented by: [id number] Sodium Chloride (Nss 1000ml) 1,000 mls @ 999 mls/hr IV .Q1H1M COLT Stop: 09/01/20 13:53 Last Infusion: 09/01/20 15:15 Dose: 0 mls/hr Documented by: [id number] Admin: 09/01/20 14:14 Dose: 999 mls/hr Documented by: [id number] Sodium Chloride (Nss 1000ml) 1,000 mls @ 999 mls/hr IV .Q1H1M ONE Stop: 09/01/20 15:57 Last Infusion: 09/01/20 16:38 Dose: 0 mls/hr Documented by: [id number] Admin: 09/01/20 15:37 Dose: 999 mls/hr Documented by: [id number] Ioversol (Ioversol 100ml) 93 ml IV ONCE ONE Stop: 09/01/20 16:05 Last Admin: 09/01/20 16:06 Dose: 93 ml Documented by: [id number] Ondansetron HCl (Ondansetron Inj 2 Mg/Ml 2 Ml Vial) 4 mg IV NOW STA Stop: 09/01/20 13:10 Last Admin: 09/01/20 14:14 Dose: 4 mg Documented by: [id number] ECG Rate (beats per minute): 104 Rhythm: sinus tachycardia COVID-19 Results Results COVID-19 Adm Lab Results: RBC 4.80 M/uL (4.2-5.4) 09/01/20 WBC 0.07 K/uL (4.8-10.8) L* 09/01/20 Hgb 15.7 g/dL (12.0-16.0) 09/01/20 Hct 45.1 % (37-47) 09/01/20 Plt Count 13 K/uL (130-400) L* 09/01/20 Na 136 mmol/L (136-145) 09/01/20 K 3.7 mmol/L (3.5-5.1) 09/01/20 Cl 104 mmol/L (98-107) 09/01/20 CO2 25 mmol/L (21-32) 09/01/20 Anion Gap 7.0 (3-11) 09/01/20 BUN 22 mg/dl (7-18) H 09/01/20 Creatinine 0.98 mg/dl (0.6-1.2) 09/01/20 BUN/Creatinine Ratio 22.2 (10-20) H 09/01/20 Glucose Level 136 mg/dl (70-99) H 09/01/20 Ca 8.1 mg/dl (8.5-10.1) L 09/01/20 Total Bilirubin 2.1 mg/dl (0.2-1) H 09/01/20 AST/SGOT 87 U/L (15-37) H 09/01/20 ALT/SGPT 150 U/L (12-78) H 09/01/20 Alkaline Phosphatase 255 U/L (45-117) H 09/01/20 Total Protein 5.8 gm/dl (6.4-8.2) L 09/01/20 Albumin 2.7 gm/dl (3.4-5.0) L 09/01/20 Globulin 3.1 gm/dl (2.5-4.0) 09/01/20 Albumin/Globulin Ratio 0.9 (0.9-2) 09/01/20 Troponin I < 0.015 ng/ml (0-0.045) 09/01/20 Procalcitonin 11.01 ng/ml (0-0.5) H 09/01/20 PTT 23.6 Seconds (21.0-31.0) 09/01/20 INR 1.2 (0.9-1.1) H 09/01/20 COVID-19 PCR NEGATIVE (Negative) 09/01/20 Influenza Virus Type A (PCR) Negative (Neg) 09/01/20 Influenza Virus Type B (PCR) Negative (Neg) 09/01/20 Chest X-Ray 09/01/20 Code Status & VTE Plan Code Status Full Code VTE Prophylaxis Plan VTE Prophylaxis will be ordered: No Reason for no VTE drug order: Contraindicated Reason for no VTE mechanical prophylaxis: Contraindicated Supervising Physician Co-Signing Physician Notes Generalized weakness/febrile at home Neutropenic fever Thrombocytopenia Possible pancreatitis/enterocolotis Lactic acidosis Elevated LFTs Epistaxis - resolved now COVID-19 ruled out Severe malnutrition H/O adenocarcinoma of the head of the pancreas. EUS with staging at [facility] - 06/2019 Completion of radiation/chemotherapy - 03/2020 S/P Whipple procedure at [facility] 04/2020 HO hereditary hemorrhegic telangectasia H/O GI Bleeding H/O CVA with left hemiparesis H/O DVT on Eliquis Patient presents with generalized weakness has been going on for the last 2 days. Reports she has been febrile at home. 2 days ago she had a nosebleed and was asked to decrease further Eliquis dose by her PCP. Patient have completed therapy/radiation therapy prior to her surgical intervention of Whipple procedure in April at [facility]. She recently had her first chemotherapy last week. Has been feeling weak since then. Denies any recent travel. Denies any exposure to any sick individual. Denies any chest pain, shortness breath, sore throat or any palpitations. Denies any abdominal pain. Does have chronic diarrhea that is not new. Was nauseous earlier and then had episodes of vomiting but denies any hematemesis. Have had nosebleed, however denies any bright red blood per rectum or any melena. Appetite is okay. Blood and urine clutures were obtained in the ED. Will obtain C. Diff and stool studies. Trend LA. Start patient on vancomycin/cefepime/flagyl. Start on mIVF. Patient was seen and discussed with LOC Dyer
[2020-09-01] MEDS ORDERED: SODIUM CHLORIDE 0.9% 1000ML 500 ML IV ONE (17:36)
[2020-09-01] MEDS ORDERED: metroNIDAZOLE 500 MG/100 ML BAG IV ONE (18:15)
[2020-09-01] MEDS ORDERED: CEFEPIME 2,000 MG in SYRINGE 0 ML IV ONE (18:15)
[2020-09-01] MEDS ORDERED: VANCOMYCIN HCL 1,250 MG in SODIUM CHLORIDE 0.9% 250 ML IV ONE (18:30)
[2020-09-01] MEDS ORDERED: ONDANSETRON INJ 2 MG/ML 2 ML VIAL IV PRN (20:07)
[2020-09-01] MEDS ORDERED: INFLUENZA ADMINISTRATION CHARGE ONE (20:22)
[2020-09-01] MEDS ORDERED: INFLUENZA VACCINE HIGH DOSE 65+ 0.7 ML SYR IM ONE (20:22)
--- NOTE | 2020-09-01 21:09 | Pharmacy Report ---
Pharmacy Abx Initial Consult - Date of Service September 01, 2020 - Pharmacy Dosing Scope Date of Consult: [] Consultation requested by: [] Pharmacy is consulted to initiate [] IV/PO dosing therapy, order appropriate labs and adjust drug dose/frequency. - Subjective The patient is a 65 year old F admitted on 09/01/20 16:48. - Objective Height: 5 ft 8 in Weight: 54.4 kg Vital Signs (Past 12hrs): Vital Signs Temp Pulse Pulse Resp BP Pulse Ox 09/01/20 20:08 37 C 102 H 19 97 09/01/20 20:02 105 H 17 110/57 L 97 09/01/20 19:30 81 16 102/50 L 97 09/01/20 19:00 83 17 100/54 L 97 09/01/20 18:40 37.2 C 09/01/20 18:30 81 14 103/51 L 98 09/01/20 18:00 92 H 16 105/54 L 97 09/01/20 17:30 90 17 111/58 L 97 09/01/20 17:00 94 H 20 111/55 L 98 09/01/20 16:30 90 19 116/63 98 09/01/20 16:17 93 H 20 108/65 100 09/01/20 15:38 38.4 C H 09/01/20 15:30 93 H 22 123/61 99 09/01/20 15:00 96 H 21 09/01/20 14:30 93 H 22 116/61 98 09/01/20 14:00 101 H 19 116/67 98 09/01/20 13:32 107 H 20 122/75 99 09/01/20 13:23 97 09/01/20 13:09 38 C H 09/01/20 13:05 107 H 21 119/53 L 98 09/01/20 12:36 37.7 C H 121 H 19 91/68 L 96 Lab Results (24hrs): Laboratory Tests (24 Hours) 09/01/20 09/01/20 09/01/20 14:20 14:20 14:20 WBC 0.07 L* Neut # (Auto) Cancelled Creatinine 0.98 Est Cr Clr Drug Dosing 51.1 Procalcitonin 11.01 H Micro Results: 09/01/20 16:51 Urine Culture - Pending Urine,Clean Catch 09/01/20 15:03 Aerobic Blood Culture - Pending Blood Anaerobic Blood Culture - Pending 09/01/20 14:20 Aerobic Blood Culture - Pending Blood Anaerobic Blood Culture - Pending - Risk Factors for Resistance * Immunocompromised (chemotherapy) - Assessment & Plan Assessment 65 year old F admitted for Sepsis and febrile neutropenia. Patient with history of pancreatic cancer and recently on chemotherapy. Vancomycin + Cefepime + Flagyl started empirically. Plan Vancomycin IV * Estimated PK Parameters: Vd 0.7 L/kg, Brandon 0.0575 hr-1, t1/2 12.1 hr * Loading dose:1250 mg (22 mg/kg) * Patient meets criteria for vancomycin AUC dosing nomogram AUC/GARRICK is the preferred PK/PD target for vancomycin Target AUC/GARRICK = 400-600 AUC guided dosing is effective and associated with decreased risk of nephrotoxicity * Maintenance dose: 750 mg IV every 12 hours started tomorrow AM * Trough Vanc level ordered before the 4th dose at 6 AM on 09/03/20. Pharmacy will continue to follow and will adjust dose/frequency as necessary. Thank you.
[2020-09-01] MEDS ORDERED: LACTATED RINGER'S 1,000 ML IV ONE (21:47)
[2020-09-01] MEDS ORDERED: MAGNESIUM SULFATE / D5W 1 GM/100 ML BAG IV ONE (21:48)
[2020-09-01 22:35] LABS: Hematocrit (blood only) 18.6 % (37-47); Hemoglobin 6.4 g/dL (12.0-16.0); Mean Corpuscular Hemoglobin 32.5 pg (25-34); Mean Corpuscular Hgb Conc 34.4 g/dL (32-36); Mean Corpuscular Volume 94.4 fL (80-100); Mean Platelet Volume 10.2 fL (7.4-10.4); Platelet Count 15 K/uL (130-400); RDW Coefficient of Variation 14.1 % (11.5-14.5); RDW Standard Deviation 48.8 fL (36.4-46.3); Red Blood Count 1.97 M/uL (4.2-5.4); White Blood Count 0.03 K/uL (4.8-10.8)
[2020-09-01] MEDS ORDERED: SODIUM CHLORIDE 0.9% 250 ML IV PRN (22:38)
[2020-09-01 22:51] LABS: Platelet Estimate SIGNIFIC DECREASED (Normal)
[2020-09-01 22:52] LABS: Cdiff Antigen Negative; Cdiff Toxin A+B Negative Cdiff Toxin (Negative)
[2020-09-01] MEDS: ACETAMINOPHEN 325 MG TAB PO PRN (23:39)
[2020-09-02] MEDS: LACTATED RINGER'S 1,000 ML IV SCH ×3 (00:52→04:18)
--- NOTE | 2020-09-02 01:48 | Communication Note ---
Date of Service: September 02, 2020 SBP 70s despite antibiotic Rx and IVF (patient currently on 5th liter.) AP Septic shock ICU transfer to facilitate pressor Rx. Will relay to AM provider.
[2020-09-02] MEDS ORDERED: SODIUM CHLORIDE 0.9% 250 ML IV PRN (01:54)
[2020-09-02] MEDS ORDERED: ICU PROTOCOL FOR HYPERGLYCEMIA PRN (01:57)
[2020-09-02] MEDS ORDERED: metroNIDAZOLE 500 MG/100 ML BAG IV SCH (02:00)
[2020-09-02] MEDS ORDERED: NOREPINEPHRINE/D5W 8 MG/508 ML IV ONE (02:14)
[2020-09-02] MEDS: Standard Conc 16mcg/mL; 8mg in 500mL IV SCH (02:20)
[2020-09-02 03:43] LABS: Hematocrit (blood only) 16.2 % (37-47); Hemoglobin 5.6 g/dL (12.0-16.0)
--- NOTE | 2020-09-02 03:49 | Procedure Note ---
Procedure Note Date of Service September 02, 2020 Procedure: Arterial Line Placement Attending: Dr. Piper APC: Walter Beltran PA-C Indication: Monitoring on Pressors Anesthesia: Lidocaine 1% Emergent consent implied in the setting of hemodynamic instability and need for close hemodynamic monitoring with the addition of vasoactive support medications. Procedure, risk, benefits, and outcomes were discussed with the patient at great length who verbally agrees. A time-out was completed verifying correct patient, procedure, site, posit ioning, and implant(s) or special equipment if applicable. Allens test was performed to ensure adequate perfusion. Patients RIGHT wrist was prepped and draped in the usual sterile fashion. Ultrasound guidance was used to aid needle placement. A 20g Arrow arterial line was introduced into the RIGHT Radial artery. Catheter was threaded, and the needle was removed with appropriate blood return. Good waveform was observed. The patient tolerated the procedure well. Confirmation of placement with ultrasound. Blood Loss: Minimal Complications: None Procedural Ultrasound Guidance: Procedure Date: 09/02/2020 Indication: Pressors, ABGs, Frequent lab draws Attending: Dr. Piper APC: Walter Beltran PA-C Artery Identified: YES Line confirmed in Artery with ultrasound: YES Complications: NONE Patient tolerated procedure: WELL Coding CPT Codes Tubes, Drains, and Vasc Access - Tubes, Drains, and Vasc Access: [id number] Insertion Catheter, Artery ([id number]) [facility] Procedure Codes (Charges) Tubes, Drains, and Vasc Access Procedure 1: Tubes, Drains, and Vasc Access: [id number] Insertion Catheter, Artery
--- NOTE | 2020-09-02 03:49 | Critical Care Consultation ---
Date of Consultation September 02, 2020 Assessment & Plan (1) Admitted to intensive care unit: Reason Critically Ill: 65-year-old female with profound symptomatic anemia in the setting of sepsis requiring close hemodynamic monitoring and blood transfusion in the immunocompromised patient currently undergoing chemotherapy for pancreatic cancer. NEURO - * CAM ICU: NEGATIVE * Patient received CT head in the emergency department with complaints of mild headache and platelet count of 13. CT unremarkable. CARDIAC/VASCULAR - * Hypotension: * Likely secondary to hypovolemia and profound anemia. * Patient received greater than 4 L normal saline. Likely delusional component. * Patient will need transfusion, particularly in the bone marrow suppressed individual currently receiving chemotherapy. * Previously received Neulasta per her stock room manager on 08/27. * Will proceed with transfusion of 2 units PRBCs at this time. * Will start on low-dose Levophed to maintain MAPs. * Monitor on telemetry. RESPIRATORY - * No h/o pulmonary disease. * Saturating well on RA. GI/NUTRITION - * Pancreatic CA: * s/p Chemo/Radiation --> Whipple --> Current Chemo. * CT abd/pelvis w/o any significant findings. * Heme positive stools: * Possibly contributing to patient's profound anemia. * No significant CT findings, thankfully. * Appreciate GI recommendations. * Transaminitis: * She has had this in the past also. * ??2/2 h/o Whipple. * Gi recs. * Prophylaxis: Protonix RENAL/LYTES - * No significant electrolyte derangements. * IVF: - * Will place Hines as we are concerned w/ pt's BP and ambulation in the setting of such profound anemia. * Hines in place - Strict I&Os. ENDO - * No h/o DM or Thyroid Dz. * BSGs per unit protocol. ISS --> gtt per unit policy. HEME - * Symptomatic anemia: * Multifactorial in the setting of severe sepsis w/ bone marrow suppression from both illness and recent chemotherapy. Also likely delusional component secondary to aggressive fluid resuscitation. Also monitor for any further GI losses. * Patient has previously received irradiated blood. Will add 2 units PRBCs at this time. * Received platelets earlier. * Continue to monitor for any bleeding sources. * Neutropenia with fevers: * Continue to try and locate source of sepsis. * Blood cultures pending. * Neutropenic precautions in place. * Patient did receive Neupogen on 08/27 for therapeutic management of neutropenia. ID - * Severe sepsis with septic shock: * With unknown source at this time. * Patient also with profound anemia which could be contributing to sepsis presentation as well. * Broadly covered with cefepime, vancomycin, and Flagyl in the neutropenic patient. * Would continue pending blood culture results. * Lactate trending down. * Trend pro-Prabhu as well. LINES/IV ACCESS - * PIVs x2 * RIGHT Port * RIGHT Radial Art line * Hines DVT PROPHYLAXIS - * Hold 2/2 possible GIB * SCDs I have personally spent 65 minutes of critical care time in the direct management of this patient. This is a life/limb threatening event. This includes time spent evaluating patient, direct bedside care, chart review, placing orders, interpretation of diagnostic studies, discussion with consultants, patient, and family members, as well as other required patient management activities. This time is exclusive of all separately billable procedures, and teaching time and separate from and in addition to any other critical care service time. Thank you for allowing us to participate in the care of this patient. Please refer to my attending physician's documentation for any further recommendations. (2) Symptomatic anemia: (3) Severe sepsis: (4) Thrombocytopenia: (5) Neutropenic fever: (6) Elevated LFTs: (7) Lactic acidosis: (8) Nausea & vomiting: (9) Carcinoma of head of pancreas: History of Present Illness Attending Physician: Sanford Cordova MD History of Present Illness Patient is a 65-year-old female with an unfortunate recent past medical history of diagnosis of pancreatic cancer in June 2019. Patient initially underwent rounds of chemotherapy and radiation followed by Whipple procedure performed at [facility] in April 2020. Patient just started 4 separate rounds of chemotherapy last Sunday. She reports that she felt more tired and rundown than usual after her treatment. She reports that she has had a 24-hour history of fevers, chills, nausea, vomiting. She does report that she has had a couple of episodes of diarrhea, but equates that to her post chemotherapy normal. On evaluation in the emergency department, the patient was noted to be neutropenic and thrombocytopenic. Her H&H was stable on initial assessment. Thankfully, blood pressures remained within normal limits. She received IV cefepime, vancomycin, and Flagyl for neutropenic fever coverage. Her initial lactate was elevated, however. Throughout the night, the patient had worsening hypotension. She had received platelets. Patient had been typed and crossed to received PRBCs (which she had received in the past). Per hospitalist conversation, he reports that the blood products were held because the patient was hypotensive and needed pressors. Patient was gladly accepted to our service. Upon assessment in the ICU, the patient is awake, alert, and oriented. Her systolic blood pressures are in the 70s. Patient is mentating and provides entire historical information. She reports that her systolics typically are in the 90s. She states that she feels generally fatigued, but feels no worse than when she initially arrived. Allergies Allergy/AdvReac Type Severity Reaction Status Date / Time FILTER REQUIRED WITH IV AdvReac Unknown Uncoded 09/01/20 14:53 FLUIDS Home Medications Medication Instructions Recorded Confirmed Type loratadine [Claritin] 10 mg PO QAM 10/04/19 09/01/20 History pantoprazole 40 mg PO DAILY 01/07/20 09/01/20 History apixaban [Eliquis] 1.25 mg PO BID 09/01/20 09/01/20 History Patient History Medical History Anemia Closed fracture of right hip requiring operative repair with malunion DVT prophylaxis Elevated lactic acid level Elevated LFTs Hemiplegia affecting left dominant side Neutropenia Neutropenic fever Pancreatic cancer Patent foramen ovale Pneumocephalus Pulmonary embolism Severe malnutrition Stroke Thrombocytopenia Transaminitis Urinary tract infection Surgical History History of ERCP 07/05/2019 - biliary stricture, adenocarcinoma on cytology 08/28/2019 - biliary stricture, stent replaced History of esophagogastroduodenoscopy (EGD) EGD with EUS. 07/10/2019. pancreatic adenocarcinoma, enlarged lymph node, GB sludge Family History Mother , age 86 C. diff Cancer possible pancreas Father , age 82 prostate cancer No problems noted. Brother Cancer prostate met cancer and melanoma Brother Cancer melanoma Sister Gitck-Jweez-Epkhn disease Sister No problems noted. Son No problems noted. Son No problems noted. 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 All else were negative. Physical Exam Physical Exam: VITAL SIGNS - Vital signs and nursing notes were reviewed. GENERAL - 65-year-old female appearing her stated age who is in no acute distress. Communicates well with provider and answers questions appropriately. SKIN - Without rashes. HEAD - NC/AT. EYES - PERRL with EOMI bilaterally. Sclera anicteric. Palpebral conjunctiva pink and moist with no injection noted. EARS - No deformities of external structures noted on gross examination bilaterally. NOSE - Midline and without cyanosis. No epistaxis or purulent drainage noted. MOUTH/OROPHARYNX - Without perioral cyanosis. Buccal mucosa pink and moist and without leukoplakia. NECK - Neck with FROM. Supple to palpation. No nuchal rigidity. LUNGS - Chest wall symmetric without accessory muscle use, intercostals retractions, or central cyanosis. Normal vesicular breath sounds CTA B/L. No wheezes, rales, or rhonchi appreciated. CARDIAC - RRR with S1/S2. No murmur, rubs, or gallops appreciated. ABDOMEN - Abdominal contour flat without pulsations or visible masses. BS normoactive all four quadrants. No tenderness, palpable masses, hepatosplenomegaly, or ascites noted. EXTREMITIES - No clubbing or peripheral cyanosis. No pretibial edema present. +3/5 radial, posterior tibial, and dorsalis pedis pulses palpated throughout. Full strength in the RIGHT upper and lower extremities. 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 NEUROLOGIC - Cranial nerves II through XII grossly intact. Sensory intact to light touch throughout. PSYCH - A&Ox3 and cooperates fully with examiner. Pt is very pleasant and interacts well with examiner. Results & Data Results & Data ([facility]) Vital Signs (Past 12 Hours) Vital Signs Temp Pulse Pulse Resp BP Pulse Ox 09/02/20 01:26 94 H 12 75/47 L 91 09/02/20 00:56 92 H 18 79/41 L 99 09/02/20 00:51 93 H 16 82/42 L 99 09/02/20 00:28 37.5 C 09/02/20 00:26 97 H 0 L 81/44 L 99 09/01/20 23:56 101 H 16 85/43 L 99 09/01/20 23:36 39.1 C H 107 H 18 78/48 L 99 09/01/20 23:34 108 H 18 78/48 L 98 09/01/20 23:22 108 H 17 89/49 L 98 09/01/20 23:17 102 H 18 89/48 L 98 09/01/20 23:12 105 H 18 93/52 L 98 09/01/20 23:08 38.9 C H 86 20 89/49 L 98 09/01/20 23:07 107 H 13 90/49 L 98 09/01/20 23:05 109 H 24 93/49 L 98 09/01/20 23:04 38.9 C H 109 H 18 93/49 L 99 09/01/20 22:51 39 C H 110 H 18 108/54 L 98 09/01/20 21:59 111 H 28 H 108/54 L 91 09/01/20 20:08 37 C 102 H 19 97 09/01/20 20:02 105 H 17 110/57 L 97 09/01/20 19:30 81 16 102/50 L 97 09/01/20 19:00 83 17 100/54 L 97 09/01/20 18:40 37.2 C 09/01/20 18:30 81 14 103/51 L 98 09/01/20 18:00 92 H 16 105/54 L 97 09/01/20 17:30 90 17 111/58 L 97 09/01/20 17:00 94 H 20 111/55 L 98 09/01/20 16:30 90 19 116/63 98 09/01/20 16:17 93 H 20 108/65 100 Coding Level of Care Code Critical Care 1st 30-74 mins Diagnoses Admitted to intensive care unit Z78.9 Symptomatic anemia D64.9 Severe sepsis A41.9; R65.20 Thrombocytopenia D69.6 Neutropenic fever D70.9; R50.81 Elevated LFTs R79.89 Lactic acidosis E87.2 Nausea & vomiting R11.2 Vomiting Intractability: non-intractable Vomiting type: unspecified Carcinoma of head of pancreas C25.0 Time Spent (min) 65 (1) Nausea & vomiting Vomiting Intractability: non-intractable Vomiting type: unspecified Quali fied Code(s): R11.2 - Nausea with vomiting, unspecified
[2020-09-02] MEDS ORDERED: CEFEPIME 2,000 MG in SYRINGE 0 ML IV SCH (06:00)
[2020-09-02] MEDS: VANCOMYCIN HCL 750 MG in SODIUM CHLORIDE 0.9% 250 ML IV SCH ×2 (06:34→18:27)
--- NOTE | 2020-09-02 08:26 | Gastrointestinal Consultation ---
Date of Consultation September 02, 2020 Assessment & Plan (1) Enterocolitis: This is a 65 y/o female with PMHx pancreatic CA s/p Whipple 04/2020, with neutropenia, thrombocytopenia, chronically elevated LFTs, DVT on Eliquis, s/p 1st tx with FOLFIRINOX 08/26, Neulasta 08/27, admitted yesterday after presenting with fever, vomiting, with profound neutropenia, thrombocytopenia, elevated lactate, and anemia, and CT c/w enterocolitis, postoperative changes of Whipple procedure with persistent mild ductal prominence of the pancreatic tail, and edema surrounding the pancreatic remnant with edema and trace fluid within the lesser sac extending into the mid mesentery; lipase WNL. She became hypotensive overnight and BP now stable on pressor support. C. diff toxin negative. COVID neg. Presentation consistent with neutropenic enterocolitis. HGB improved with pRBCs; lactate normalized with IVF, ABX. On exam, she appears tired, weak but she gives her full history; abd soft, nontender. - Check stool culture - Stool for ova and parasites - Await martinez cultures - Continue broad spectrum ABX - Continue hydration with IVF - Recommend bowel rest; made pt NPO - Supportive care with nutritional support - She had a large nosebleed on Sunday and states she swallowed a fair amt of blood. In the hospital she had a blood tinged brown stool; this may be in the setting of her enterocolitis; given normal BUN and improved HGB s/p pRBC and no active bleeding, would continue to monitor stool output. - Trend H&H, transfuse PRN - Consider RUQ imaging, US ABD for elevated bilirubin to exclude extrahepatic causes such as biliary obstruction - Recommend optimizing her WBC and plt count given profound neutropenia/thrombocytopenia - Continue pressor support as per critical care service Thank you for allowing us to participate in the care of this patient. Please call with any acute changes, questions or concerns. Please see addendum below with additional recommendation from my supervising physician. (2) Neutropenia: Supervising Physician Co-Signing Physician Notes Late entry: Patient was seen and examined on 09/02 with Fely Pappas PA-C whose note reflects our findings and plan. 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 On arrival labs notable for profound neutropenia (WBC 0.07), thrombocytopenia (plt 15k); HGB on admit was 15 (hemoconcentrated?), as it was 10 on 08/30; repeat was 6->5; lactic acid of 3, procal of 11, with renal fxn, electrolytes WNL; LFTs are chronically elevated and are near baseline, except for t bilirubin of 3.8, lipase diminished. CT w/ findings of mild thickening of proximal jejunum/right hemicolon, no pneumatosis. She was martinez-cultured; C. diff toxin neg, gene +. She was placed on Cefepime, vancomycin, Flagyl, and received 2 units pRBCs and 1 unit of platelets. She was hypotensive overnight with systolics in the 70's and was placed on Levophed; BPs currently avg in the 110's. This AM HGB improved to 9.3. She had blood-tinged brown stool. Presently is awake, alert, oriented; denies abd pain; feels somewhat improved from admission; is feeling tired. Was given clear liquids overnight. She reports chronic loose stools s/p Whipple on Cre; has a few per day and that has continued. Had some black stool after her large nosebleed on Sunday where she states she did swallow some blood but stools were then brown. Denies hematochezia, hematemesis, abd pain, bloating, CP, SOB, leg edema, falls, syncope. Allergies Allergy/AdvReac Type Severity Reaction Status Date / Time FILTER REQUIRED WITH IV AdvReac Unknown Uncoded 09/01/20 14:53 FLUIDS Home Medications Medication Instructions Recorded Confirmed Type loratadine [Claritin] 10 mg PO QAM 10/04/19 09/01/20 History Lactobacillus acidoph-L.bulgar 1 g PO TIDM 30 Days #0 ea 09/08/20 Rx [Floranex] [id number] [Creon] 1 cap PO TIDM 30 Days #30 cap 09/08/20 Rx midodrine 5 mg PO TID #0 tab 09/08/20 Rx Patient History Medical History (Updated 09/03/20 @ 08:56 by Neil Piper MD) Anemia Closed fracture of right hip requiring operative repair with malunion DVT prophylaxis Elevated lactic acid level Elevated LFTs Hemiplegia affecting left dominant side Hypovolemic shock Neutropenia Neutropenic fever Pancreatic cancer Patent foramen ovale Pneumocephalus Pulmonary embolism Severe malnutrition Stroke Thrombocytopenia Transaminitis Urinary tract infection Surgical History History of ERCP 07/05/2019 - biliary stricture, adenocarcinoma on cytology 08/28/2019 - biliary stricture, stent replaced History of esophagogastroduodenoscopy (EGD) EGD with EUS. 07/10/2019. pancreatic adenocarcinoma, enlarged lymph node, GB sludge Family History Mother , age 86 C. diff Cancer possible pancreas Father , age 82 prostate cancer No problems noted. Brother Cancer prostate met cancer and melanoma Brother Cancer melanoma Sister Slbuy-Rzugz-Mptvo disease Sister No problems noted. Son No problems noted. Son No problems noted. 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 Feels Safe at Home: Yes Childhood Exposure to Second-Hand Smoke: No caffeine: Yes (one cup per day ) during the past year weight has: decreased > 10 lbs Dental Care, Regularly: Yes Physical Activity Frequency: 1-2 Times per Week Seatbelt Use: always Sunscreen Use: Yes Assistive Devices: None Review of Systems Review of Systems: All systems reviewed & are unremarkable except as noted in HPI & below Physical Exam Constitutional: + thin and + lethargic; no acute distress Chronically ill Eyes: + anicteric sclerae Respiratory: normal respiratory effort, lungs clear to auscultation Cardiovascular: Rate/Rhythm: regular rate and + bradycardic Gastrointestinal (Abdomen): Inspection/Auscultation: abdomen normal to inspection and normal bowel sounds; abdomen not distended Percussion/Palpation: abdomen soft; abdomen nontender Skin: no rashes, warm and dry Psychiatric: A+Ox3, euthymic affect Results & Data ([facility]) Vital Signs (Past 12 Hours) Vital Signs Temp Pulse Resp BP Pulse Ox 09/02/20 06:53 47 L 16 124/70 100 09/02/20 06:15 36.8 C 48 L 124/59 L 100 09/02/20 05:53 36.8 C 49 L 126/60 100 09/02/20 05:23 36.8 C 55 L 113/55 L 100 09/02/20 05:08 36.6 C 63 122/55 L 100 09/02/20 04:52 36.6 C 60 12 109/54 L 100 09/02/20 04:16 36.7 C 73 20 81/48 L 100 09/02/20 04:13 36.7 C 78 14 77/44 L 100 09/02/20 04:07 36.8 C 72 16 73/45 L 100 09/02/20 03:52 36.8 C 71 14 81/45 L 100 09/02/20 03:37 36.9 C 74 15 79/48 L 100 09/02/20 03:22 36.9 C 76 12 84/44 L 100 09/02/20 03:07 77 15 97/54 L 100 09/02/20 03:03 63 15 130/45 L 99 09/02/20 02:52 76 2 L 72/45 L 100 09/02/20 02:36 81 15 72/48 L 99 09/02/20 02:28 81 17 72/43 L 99 09/02/20 02:26 79 16 72/43 L 99 09/02/20 02:03 89 19 76/38 L 99 09/02/20 02:02 90 19 76/44 L 99 09/02/20 01:56 84 16 74/46 L 100 09/02/20 01:26 94 H 12 75/47 L 91 09/02/20 00:56 92 H 18 79/41 L 99 09/02/20 00:51 93 H 16 82/42 L 99 09/02/20 00:28 37.5 C 09/02/20 00:26 97 H 0 L 81/44 L 99 09/01/20 23:56 101 H 16 85/43 L 99 09/01/20 23:36 39.1 C H 107 H 18 78/48 L 99 09/01/20 23:34 108 H 18 78/48 L 98 09/01/20 23:22 108 H 17 89/49 L 98 09/01/20 23:17 102 H 18 89/48 L 98 09/01/20 23:12 105 H 18 93/52 L 98 09/01/20 23:08 38.9 C H 86 20 89/49 L 98 09/01/20 23:07 107 H 13 90/49 L 98 09/01/20 23:05 109 H 24 93/49 L 98 09/01/20 23:04 38.9 C H 109 H 18 93/49 L 99 09/01/20 22:51 39 C H 110 H 18 108/54 L 98 09/01/20 21:59 111 H 28 H 108/54 L 91 Laboratory Results 09/02/20 09/01/20 09/01/20 Range/Units 02:13 22:13 22:13 WBC 0.03 L* (4.8-10.8) K/uL RBC 1.97 L (4.2-5.4) M/uL Hgb 5.6 L* 6.4 L* D (12.0-16.0) g/dL Hct 16.2 L* 18.6 L* (37-47) % MCV 94.4 (80-100) fL MCH 32.5 (25-34) pg MCHC 34.4 (32-36) g/dL RDW Std Deviation 48.8 H (36.4-46.3) fL RDW Coeff of Rajesh 14.1 (11.5-14.5) % Plt Count 15 L* (130-400) K/uL MPV 10.2 (7.4-10.4) fL Immature Gran % (Auto) Cancelled Neut % (Auto) Cancelled Lymph % (Auto) Cancelled [place] % (Auto) Cancelled Eos % (Auto) Cancelled Baso % (Auto) Cancelled Neut # (Auto) Cancelled Lymph # (Auto) Cancelled [place] # (Auto) Cancelled Eos # (Auto) Cancelled Baso # (Auto) Cancelled Immature Gran # (Auto) Cancelled Neutrophils % (Manual) Cancelled Band Neutrophils % Cancelled Lymphocytes % (Manual) Cancelled Prolymphocyte % Cancelled Reactive Lymphs % (Man) Cancelled Monocytes % (Manual) Cancelled Eosinophils % (Manual) Cancelled Basophils % (Manual) Cancelled Metamyelocytes % (Man) Cancelled Myelocytes % (Man) Cancelled Promyelocytes % (Man) Cancelled Blast Cells % (Manual) Cancelled Plasma Cell % (Manual) Cancelled Other Cells % Cancelled Nucleated RBC % Cancelled Neutrophils # (Manual) Cancelled Band Neutrophils # Cancelled Total Absolute Neuts Cancelled Lymphocytes # (Manual) Cancelled Prolymphocyte # Cancelled Reactive Lymphs # Cancelled Total Abs Lymphocytes Cancelled Monocytes # (Manual) Cancelled Eosinophils # (Manual) Cancelled Basophils # (Manual) Cancelled Metamyelocytes # (Man) Cancelled Myelocytes # (Manual) Cancelled Promyelocytes # (Man) Cancelled Blast Cells # (Man) Cancelled Plasma Cell # (Manual) Cancelled Other Cells # Cancelled Nucleated RBCs # (Man) Cancelled Hypersegmented Neuts Cancelled Hyposegmented Neuts Cancelled Hypogranular Neuts Cancelled Large Granular Lymphs Cancelled # Lrg Granular Lymphs Cancelled Hairy Cells Cancelled Smudge Cells Cancelled Toxic Granulation Cancelled Toxic Vacuolation Cancelled Dohle Bodies Cancelled Jarad Rods Cancelled Platelet Estimate SIGNIFIC DECREASED (Normal) Hypogranular Platelets Cancelled Clumped Platelets Cancelled Giant Platelets Cancelled Platelet Satelliting Cancelled RBC Morphology Cancelled Polychromasia Cancelled Hypochromasia Cancelled Poikilocytosis Cancelled Basophilic Stippling Cancelled Anisocytosis Cancelled Microcytosis Cancelled Macrocytosis Cancelled Spherocytes Cancelled Pappenheimer Bodies Cancelled Sickle Cells Cancelled Target Cells Cancelled Tear Drop Cells Cancelled Ovalocytes Cancelled Stomatocytes Cancelled [place] Bodies Cancelled Echinocytes Cancelled Acanthocytes (Spur) Cancelled Rouleaux Cancelled RBC Agglutinates Cancelled Schistocytes Cancelled RBC Morph Comment Cancelled Sezary Cell Cancelled PT (9.0-12.0) Seconds INR (0.9-1.1) APTT (21.0-31.0) Seconds PTT Ratio Sodium (136-145) mmol/L Potassium (3.5-5.1) mmol/L Chloride (98-107) mmol/L Carbon Dioxide (21-32) mmol/L Anion Gap (3-11) BUN (7-18) mg/dl Creatinine (0.6-1.2) mg/dl Est Cr Clr Drug Dosing ml/min Est GFR ( Amer) Est GFR (Non-Af Amer) BUN/Creatinine Ratio (10-20) Glucose (70-99) mg/dl Lactate 2.7 H* (0.4-2.0) mmol/L Calcium (8.5-10.1) mg/dl Magnesium (1.8-2.4) mg/dl Total Bilirubin (0.2-1) mg/dl AST (15-37) U/L ALT (12-78) U/L Alkaline Phosphatase (45-117) U/L Troponin I (0-0.045) ng/ml Total Protein (6.4-8.2) gm/dl Albumin (3.4-5.0) gm/dl Globulin (2.5-4.0) gm/dl Albumin/Globulin Ratio (0.9-2) Lipase (73-393) U/L Procalcitonin (0-0.5) ng/ml Urine Color Urine Appearance (Clear) Urine pH (4.5-7.5) Ur Specific M[place] (1.000-1.030) Urine Protein (Negative) Urine Glucose (UA) (Negative) Urine Ketones (Negative) Urine Blood (Negative) Urine Nitrite (Negative) Urine Bilirubin (Negative) Urine Urobilinogen (Negative) Ur Leukocyte Esterase (Negative) Urine WBC (Auto) (0-5) /hpf Urine RBC (Auto) (0-4) /hpf U Hyaline Cast (Auto) (0-5) /lpf U Epithel Cells (Auto) (0-5) /lpf Urine Bacteria (Auto) (Negative) Nasal Screen MRSA (PCR) (Negative) Stool Occult Bld Scrn (Negative) Stl C. diff Tox B Gene (Neg) Stl C.difficile Tox A&B (Negative) COVID-19 Eval Order SARS-CoV-2 (PCR) (Negative) Influenza Type A (PCR) (Neg) Influ A Molecular Assay Influenza Type B (PCR) (Neg) Influ B Molecular Assay RSV (RT-PCR) (Neg) Blood Type Antibody Screen Crossmatch 09/01/20 09/01/20 09/01/20 Range/Units 21:00 21:00 20:05 WBC (4.8-10.8) K/uL RBC (4.2-5.4) M/uL Hgb (12.0-16.0) g/dL Hct (37-47) % MCV (80-100) fL MCH (25-34) pg MCHC (32-36) g/dL RDW Std Deviation (36.4-46.3) fL RDW Coeff of Rajesh (11.5-14.5) % Plt Count (130-400) K/uL MPV (7.4-10.4) fL Immature Gran % (Auto) Neut % (Auto) Lymph % (Auto) [place] % (Auto) Eos % (Auto) Baso % (Auto) Neut # (Auto) Lymph # (Auto) [place] # (Auto) Eos # (Auto) Baso # (Auto) Immature Gran # (Auto) Neutrophils % (Manual) Band Neutrophils % Lymphocytes % (Manual) Prolymphocyte % Reactive Lymphs % (Man) Monocytes % (Manual) Eosinophils % (Manual) Basophils % (Manual) Metamyelocytes % (Man) Myelocytes % (Man) Promyelocytes % (Man) Blast Cells % (Manual) Plasma Cell % (Manual) Other Cells % Nucleated RBC % Neutrophils # (Manual) Band Neutrophils # Total Absolute Neuts Lymphocytes # (Manual) Prolymphocyte # Reactive Lymphs # Total Abs Lymphocytes Monocytes # (Manual) Eosinophils # (Manual) Basophils # (Manual) Metamyelocytes # (Man) Myelocytes # (Manual) Promyelocytes # (Man) Blast Cells # (Man) Plasma Cell # (Manual) Other Cells # Nucleated RBCs # (Man) Hypersegmented Neuts Hyposegmented Neuts Hypogranular Neuts Large Granular Lymphs # Lrg Granular Lymphs Hairy Cells Smudge Cells Toxic Granulation Toxic Vacuolation Dohle Bodies Jarad Rods Platelet Estimate (Normal) Hypogranular Platelets Clumped Platelets Giant Platelets Platelet Satelliting RBC Morphology Polychromasia Hypochromasia Poikilocytosis Basophilic Stippling Anisocytosis Microcytosis Macrocytosis Spherocytes Pappenheimer Bodies Sickle Cells Target Cells Tear Drop Cells Ovalocytes Stomatocytes [place] Bodies Echinocytes Acanthocytes (Spur) Rouleaux RBC Agglutinates Schistocytes RBC Morph Comment Sezary Cell PT (9.0-12.0) Seconds INR (0.9-1.1) APTT (21.0-31.0) Seconds PTT Ratio Sodium (136-145) mmol/L Potassium (3.5-5.1) mmol/L Chloride (98-107) mmol/L Carbon Dioxide (21-32) mmol/L Anion Gap (3-11) BUN (7-18) mg/dl Creatinine (0.6-1.2) mg/dl Est Cr Clr Drug Dosing ml/min Est GFR ( Amer) Est GFR (Non-Af Amer) BUN/Creatinine Ratio (10-20) Glucose (70-99) mg/dl Lactate (0.4-2.0) mmol/L Calcium (8.5-10.1) mg/dl Magnesium (1.8-2.4) mg/dl Total Bilirubin (0.2-1) mg/dl AST (15-37) U/L ALT (12-78) U/L Alkaline Phosphatase (45-117) U/L Troponin I (0-0.045) ng/ml Total Protein (6.4-8.2) gm/dl Albumin (3.4-5.0) gm/dl Globulin (2.5-4.0) gm/dl Albumin/Globulin Ratio (0.9-2) Lipase (73-393) U/L Procalcitonin (0-0.5) ng/ml Urine Color Urine Appearance (Clear) Urine pH (4.5-7.5) Ur Specific Mccune (1.000-1.030) Urine Protein (Negative) Urine Glucose (UA) (Negative) Urine Ketones (Negative) Urine Blood (Negative) Urine Nitrite (Negative) Urine Bilirubin (Negative) Urine Urobilinogen (Negative) Ur Leukocyte Esterase (Negative) Urine WBC (Auto) (0-5) /hpf Urine RBC (Auto) (0-4) /hpf U Hyaline Cast (Auto) (0-5) /lpf U Epithel Cells (Auto) (0-5) /lpf Urine Bacteria (Auto) (Negative) Nasal Screen MRSA (PCR) Negative (Negative) Stool Occult Bld Scrn Positive A (Negative) Stl C. diff Tox B Gene Positive Cdiff Gene H (Neg) Stl C.difficile Tox A&B Negative Cdiff Toxin (Negative) COVID-19 Eval Order SARS-CoV-2 (PCR) (Negative) Influenza Type A (PCR) (Neg) Influ A Molecular Assay Influenza Type B (PCR) (Neg) Influ B Molecular Assay RSV (RT-PCR) (Neg) Blood Type Antibody Screen Crossmatch 09/01/20 09/01/20 09/01/20 Range/Units 17:20 16:51 16:50 WBC (4.8-10.8) K/uL RBC (4.2-5.4) M/uL Hgb (12.0-16.0) g/dL Hct (37-47) % MCV (80-100) fL MCH (25-34) pg MCHC (32-36) g/dL RDW Std Deviation (36.4-46.3) fL RDW Coeff of Rajesh (11.5-14.5) % Plt Count (130-400) K/uL MPV (7.4-10.4) fL Immature Gran % (Auto) Neut % (Auto) Lymph % (Auto) [place] % (Auto) Eos % (Auto) Baso % (Auto) Neut # (Auto) Lymph # (Auto) [place] # (Auto) Eos # (Auto) Baso # (Auto) Immature Gran # (Auto) Neutrophils % (Manual) Band Neutrophils % Lymphocytes % (Manual) Prolymphocyte % Reactive Lymphs % (Man) Monocytes % (Manual) Eosinophils % (Manual) Basophils % (Manual) Metamyelocytes % (Man) Myelocytes % (Man) Promyelocytes % (Man) Blast Cells % (Manual) Plasma Cell % (Manual) Other Cells % Nucleated RBC % Neutrophils # (Manual) Band Neutrophils # Total Absolute Neuts Lymphocytes # (Manual) Prolymphocyte # Reactive Lymphs # Total Abs Lymphocytes Monocytes # (Manual) Eosinophils # (Manual) Basophils # (Manual) Metamyelocytes # (Man) Myelocytes # (Manual) Promyelocytes # (Man) Blast Cells # (Man) Plasma Cell # (Manual) Other Cells # Nucleated RBCs # (Man) Hypersegmented Neuts Hyposegmented Neuts Hypogranular Neuts Large Granular Lymphs # Lrg Granular Lymphs Hairy Cells Smudge Cells Toxic Granulation Toxic Vacuolation Dohle Bodies Jarad Rods Platelet Estimate (Normal) Hypogranular Platelets Clumped Platelets Giant Platelets Platelet Satelliting RBC Morphology Polychromasia Hypochromasia Poikilocytosis Basophilic Stippling Anisocytosis Microcytosis Macrocytosis Spherocytes Pappenheimer Bodies Sickle Cells Target Cells Tear Drop Cells Ovalocytes Stomatocytes [place] Bodies Echinocytes Acanthocytes (Spur) Rouleaux RBC Agglutinates Schistocytes RBC Morph Comment Sezary Cell PT (9.0-12.0) Seconds INR (0.9-1.1) APTT (21.0-31.0) Seconds PTT Ratio Sodium (136-145) mmol/L Potassium (3.5-5.1) mmol/L Chloride (98-107) mmol/L Carbon Dioxide (21-32) mmol/L Anion Gap (3-11) BUN (7-18) mg/dl Creatinine (0.6-1.2) mg/dl Est Cr Clr Drug Dosing ml/min Est GFR ( Amer) Est GFR (Non-Af Amer) BUN/Creatinine Ratio (10-20) Glucose (70-99) mg/dl Lactate 3.1 H* (0.4-2.0) mmol/L Calcium (8.5-10.1) mg/dl Magnesium (1.8-2.4) mg/dl Total Bilirubin (0.2-1) mg/dl AST (15-37) U/L ALT (12-78) U/L Alkaline Phosphatase (45-117) U/L Troponin I (0-0.045) ng/ml Total Protein (6.4-8.2) gm/dl Albumin (3.4-5.0) gm/dl Globulin (2.5-4.0) gm/dl Albumin/Globulin Ratio (0.9-2) Lipase (73-393) U/L Procalcitonin (0-0.5) ng/ml Urine Color [place] Urine Appearance Clear (Clear) Urine pH 5.5 (4.5-7.5) Ur Specific M[place]une 1.021 (1.000-1.030) Urine Protein Negative (Negative) Urine Glucose (UA) Negative (Negative) Urine Ketones Negative (Negative) Urine Blood 2+ H (Negative) Urine Nitrite Positive A (Negative) Urine Bilirubin Negative (Negative) Urine Urobilinogen Negative (Negative) Ur Leukocyte Esterase Negative (Negative) Urine WBC (Auto) 1-5 (0-5) /hpf Urine RBC (Auto) 0-4 (0-4) /hpf U Hyaline Cast (Auto) 0 (0-5) /lpf U Epithel Cells (Auto) 5-10 H (0-5) /lpf Urine Bacteria (Auto) 3+ H (Negative) Nasal Screen MRSA (PCR) (Negative) Stool Occult Bld Scrn (Negative) Stl C. diff Tox B Gene (Neg) Stl C.difficile Tox A&B (Negative) COVID-19 Eval Order SARS-CoV-2 (PCR) (Negative) Influenza Type A (PCR) (Neg) Influ A Molecular Assay Influenza Type B (PCR) (Neg) Influ B Molecular Assay RSV (RT-PCR) (Neg) Blood Type AB Positive Antibody Screen NEGATIVE Crossmatch See Detail 09/01/20 09/01/20 09/01/20 Range/Units 14:20 14:20 14:20 WBC 0.07 L* (4.8-10.8) K/uL RBC 4.80 (4.2-5.4) M/uL Hgb 15.7 (12.0-16.0) g/dL Hct 45.1 (37-47) % MCV 94.0 (80-100) fL MCH 32.7 (25-34) pg MCHC 34.8 (32-36) g/dL RDW Std Deviation 47.8 H (36.4-46.3) fL RDW Coeff of Rajesh 13.9 (11.5-14.5) % Plt Count 13 L* (130-400) K/uL MPV 11.1 H (7.4-10.4) fL Immature Gran % (Auto) Cancelled Neut % (Auto) Cancelled Lymph % (Auto) Cancelled [place] % (Auto) Cancelled Eos % (Auto) Cancelled Baso % (Auto) Cancelled Neut # (Auto) Cancelled Lymph # (Auto) Cancelled [place] # (Auto) Cancelled Eos # (Auto) Cancelled Baso # (Auto) Cancelled Immature Gran # (Auto) Cancelled Neutrophils % (Manual) Cancelled Band Neutrophils % Cancelled Lymphocytes % (Manual) Cancelled Prolymphocyte % Cancelled Reactive Lymphs % (Man) Cancelled Monocytes % (Manual) Cancelled Eosinophils % (Manual) Cancelled Basophils % (Manual) Cancelled Metamyelocytes % (Man) Cancelled Myelocytes % (Man) Cancelled Promyelocytes % (Man) Cancelled Blast Cells % (Manual) Cancelled Plasma Cell % (Manual) Cancelled Other Cells % Cancelled Nucleated RBC % Cancelled Neutrophils # (Manual) Cancelled Band Neutrophils # Cancelled Total Absolute Neuts Cancelled Lymphocytes # (Manual) Cancelled Prolymphocyte # Cancelled Reactive Lymphs # Cancelled Total Abs Lymphocytes Cancelled Monocytes # (Manual) Cancelled Eosinophils # (Manual) Cancelled Basophils # (Manual) Cancelled Metamyelocytes # (Man) Cancelled Myelocytes # (Manual) Cancelled Promyelocytes # (Man) Cancelled Blast Cells # (Man) Cancelled Plasma Cell # (Manual) Cancelled Other Cells # Cancelled Nucleated RBCs # (Man) Cancelled Hypersegmented Neuts Cancelled Hyposegmented Neuts Cancelled Hypogranular Neuts Cancelled Large Granular Lymphs Cancelled # Lrg Granular Lymphs Cancelled Hairy Cells Cancelled Smudge Cells Cancelled Toxic Granulation Cancelled Toxic Vacuolation Cancelled Dohle Bodies Cancelled Jarad Rods Cancelled Platelet Estimate SIGNIFIC DECREASED (Normal) Hypogranular Platelets Cancelled Clumped Platelets Cancelled Giant Platelets Cancelled Platelet Satelliting Cancelled RBC Morphology Cancelled Polychromasia Cancelled Hypochromasia Cancelled Poikilocytosis Cancelled Basophilic Stippling Cancelled Anisocytosis Cancelled Microcytosis Cancelled Macrocytosis Cancelled Spherocytes Cancelled Pappenheimer Bodies Cancelled Sickle Cells Cancelled Target Cells Cancelled Tear Drop Cells Cancelled Ovalocytes Cancelled Stomatocytes Cancelled [place] Bodies Cancelled Echinocytes Cancelled Acanthocytes (Spur) Cancelled Rouleaux Cancelled RBC Agglutinates Cancelled Schistocytes Cancelled RBC Morph Comment Cancelled Sezary Cell Cancelled PT 12.1 H (9.0-12.0) Seconds INR 1.2 H (0.9-1.1) APTT 23.6 (21.0-31.0) Seconds PTT Ratio 0.8 Sodium (136-145) mmol/L Potassium (3.5-5.1) mmol/L Chloride (98-107) mmol/L Carbon Dioxide (21-32) mmol/L Anion Gap (3-11) BUN (7-18) mg/dl Creatinine (0.6-1.2) mg/dl Est Cr Clr Drug Dosing ml/min Est GFR ( Amer) Est GFR (Non-Af Amer) BUN/Creatinine Ratio (10-20) Glucose (70-99) mg/dl Lactate 3.0 H* (0.4-2.0) mmol/L Calcium (8.5-10.1) mg/dl Magnesium (1.8-2.4) mg/dl Total Bilirubin (0.2-1) mg/dl AST (15-37) U/L ALT (12-78) U/L Alkaline Phosphatase (45-117) U/L Troponin I (0-0.045) ng/ml Total Protein (6.4-8.2) gm/dl Albumin (3.4-5.0) gm/dl Globulin (2.5-4.0) gm/dl Albumin/Globulin Ratio (0.9-2) Lipase (73-393) U/L Procalcitonin (0-0.5) ng/ml Urine Color Urine Appearance (Clear) Urine pH (4.5-7.5) Ur Specific [place] (1.000-1.030) Urine Protein (Negative) Urine Glucose (UA) (Negative) Urine Ketones (Negative) Urine Blood (Negative) Urine Nitrite (Negative) Urine Bilirubin (Negative) Urine Urobilinogen (Negative) Ur Leukocyte Esterase (Negative) Urine WBC (Auto) (0-5) /hpf Urine RBC (Auto) (0-4) /hpf U Hyaline Cast (Auto) (0-5) /lpf U Epithel Cells (Auto) (0-5) /lpf Urine Bacteria (Auto) (Negative) Nasal Screen MRSA (PCR) (Negative) Stool Occult Bld Scrn (Negative) Stl C. diff Tox B Gene (Neg) Stl C.difficile Tox A&B (Negative) COVID-19 Eval Order SARS-CoV-2 (PCR) (Negative) Influenza Type A (PCR) (Neg) Influ A Molecular Assay Influenza Type B (PCR) (Neg) Influ B Molecular Assay RSV (RT-PCR) (Neg) Blood Type Antibody Screen Crossmatch 09/01/20 09/01/20 09/01/20 Range/Units 14:20 14:20 13:30 WBC (4.8-10.8) K/uL RBC (4.2-5.4) M/uL Hgb (12.0-16.0) g/dL Hct (37-47) % MCV (80-100) fL MCH (25-34) pg MCHC (32-36) g/dL RDW Std Deviation (36.4-46.3) fL RDW Coeff of Rajesh (11.5-14.5) % Plt Count (130-400) K/uL MPV (7.4-10.4) fL Immature Gran % (Auto) Neut % (Auto) Lymph % (Auto) [place] % (Auto) Eos % (Auto) Baso % (Auto) Neut # (Auto) Lymph # (Auto) [place] # (Auto) Eos # (Auto) Baso # (Auto) Immature Gran # (Auto) Neutrophils % (Manual) Band Neutrophils % Lymphocytes % (Manual) Prolymphocyte % Reactive Lymphs % (Man) Monocytes % (Manual) Eosinophils % (Manual) Basophils % (Manual) Metamyelocytes % (Man) Myelocytes % (Man) Promyelocytes % (Man) Blast Cells % (Manual) Plasma Cell % (Manual) Other Cells % Nucleated RBC % Neutrophils # (Manual) Band Neutrophils # Total Absolute Neuts Lymphocytes # (Manual) Prolymphocyte # Reactive Lymphs # Total Abs Lymphocytes Monocytes # (Manual) Eosinophils # (Manual) Basophils # (Manual) Metamyelocytes # (Man) Myelocytes # (Manual) Promyelocytes # (Man) Blast Cells # (Man) Plasma Cell # (Manual) Other Cells # Nucleated RBCs # (Man) Hypersegmented Neuts Hyposegmented Neuts Hypogranular Neuts Large Granular Lymphs # Lrg Granular Lymphs Hairy Cells Smudge Cells Toxic Granulation Toxic Vacuolation Dohle Bodies Jarad Rods Platelet Estimate (Normal) Hypogranular Platelets Clumped Platelets Giant Platelets Platelet Satelliting RBC Morphology Polychromasia Hypochromasia Poikilocytosis Basophilic Stippling Anisocytosis Microcytosis Macrocytosis Spherocytes Pappenheimer Bodies Sickle Cells Target Cells Tear Drop Cells Ovalocytes Stomatocytes [place] Bodies Echinocytes Acanthocytes (Spur) Rouleaux RBC Agglutinates Schistocytes RBC Morph Comment Sezary Cell PT (9.0-12.0) Seconds INR (0.9-1.1) APTT (21.0-31.0) Seconds PTT Ratio Sodium 136 (136-145) mmol/L Potassium 3.7 (3.5-5.1) mmol/L Chloride 104 (98-107) mmol/L Carbon Dioxide 25 (21-32) mmol/L Anion Gap 7.0 (3-11) BUN 22 H (7-18) mg/dl Creatinine 0.98 (0.6-1.2) mg/dl Est Cr Clr Drug Dosing 51.1 ml/min Est GFR ( Amer) 70.2 Est GFR (Non-Af Amer) 60.5 BUN/Creatinine Ratio 22.2 H (10-20) Glucose 136 H (70-99) mg/dl Lactate (0.4-2.0) mmol/L Calcium 8.1 L (8.5-10.1) mg/dl Magnesium 1.8 (1.8-2.4) mg/dl Total Bilirubin 2.1 H (0.2-1) mg/dl AST 87 H (15-37) U/L ALT 150 H (12-78) U/L Alkaline Phosphatase 255 H (45-117) U/L Troponin I < 0.015 (0-0.045) ng/ml Total Protein 5.8 L (6.4-8.2) gm/dl Albumin 2.7 L (3.4-5.0) gm/dl Globulin 3.1 (2.5-4.0) gm/dl Albumin/Globulin Ratio 0.9 (0.9-2) Lipase 21 L (73-393) U/L Procalcitonin 11.01 H (0-0.5) ng/ml Urine Color Urine Appearance (Clear) Urine pH (4.5-7.5) Ur Specific Mccune (1.000-1.030) Urine Protein (Negative) Urine Glucose (UA) (Negative) Urine Ketones (Negative) Urine Blood (Negative) Urine Nitrite (Negative) Urine Bilirubin (Negative) Urine Urobilinogen (Negative) Ur Leukocyte Esterase (Negative) Urine WBC (Auto) (0-5) /hpf Urine RBC (Auto) (0-4) /hpf U Hyaline Cast (Auto) (0-5) /lpf U Epithel Cells (Auto) (0-5) /lpf Urine Bacteria (Auto) (Negative) Nasal Screen MRSA (PCR) (Negative) Stool Occult Bld Scrn (Negative) Stl C. diff Tox B Gene (Neg) Stl C.difficile Tox A&B (Negative) COVID-19 Eval Order SARS-CoV-2 (PCR) NEGATIVE (Negative) Influenza Type A (PCR) Negative (Neg) Influ A Molecular Assay Influenza Type B (PCR) Negative (Neg) Influ B Molecular Assay RSV (RT-PCR) Negative (Neg) Blood Type Antibody Screen Crossmatch 09/01/20 09/01/20 Range/Units 13:30 13:30 WBC (4.8-10.8) K/uL RBC (4.2-5.4) M/uL Hgb (12.0-16.0) g/dL Hct (37-47) % MCV (80-100) fL MCH (25-34) pg MCHC (32-36) g/dL RDW Std Deviation (36.4-46.3) fL RDW Coeff of Rajesh (11.5-14.5) % Plt Count (130-400) K/uL MPV (7.4-10.4) fL Immature Gran % (Auto) Neut % (Auto) Lymph % (Auto) [place] % (Auto) Eos % (Auto) Baso % (Auto) Neut # (Auto) Lymph # (Auto) [place] # (Auto) Eos # (Auto) Baso # (Auto) Immature Gran # (Auto) Neutrophils % (Manual) Band Neutrophils % Lymphocytes % (Manual) Prolymphocyte % Reactive Lymphs % (Man) Monocytes % (Manual) Eosinophils % (Manual) Basophils % (Manual) Metamyelocytes % (Man) Myelocytes % (Man) Promyelocytes % (Man) Blast Cells % (Manual) Plasma Cell % (Manual) Other Cells % Nucleated RBC % Neutrophils # (Manual) Band Neutrophils # Total Absolute Neuts Lymphocytes # (Manual) Prolymphocyte # Reactive Lymphs # Total Abs Lymphocytes Monocytes # (Manual) Eosinophils # (Manual) Basophils # (Manual) Metamyelocytes # (Man) Myelocytes # (Manual) Promyelocytes # (Man) Blast Cells # (Man) Plasma Cell # (Manual) Other Cells # Nucleated RBCs # (Man) Hypersegmented Neuts Hyposegmented Neuts Hypogranular Neuts Large Granular Lymphs # Lrg Granular Lymphs Hairy Cells Smudge Cells Toxic Granulation Toxic Vacuolation Dohle Bodies Jarad Rods Platelet Estimate (Normal) Hypogranular Platelets Clumped Platelets Giant Platelets Platelet Satelliting RBC Morphology Polychromasia Hypochromasia Poikilocytosis Basophilic Stippling Anisocytosis Microcytosis Macrocytosis Spherocytes Pappenheimer Bodies Sickle Cells Target Cells Tear Drop Cells Ovalocytes Stomatocytes [place] Bodies Echinocytes Acanthocytes (Spur) Rouleaux RBC Agglutinates Schistocytes RBC Morph Comment Sezary Cell PT (9.0-12.0) Seconds INR (0.9-1.1) APTT (21.0-31.0) Seconds PTT Ratio Sodium (136-145) mmol/L Potassium (3.5-5.1) mmol/L Chloride (98-107) mmol/L Carbon Dioxide (21-32) mmol/L Anion Gap (3-11) BUN (7-18) mg/dl Creatinine (0.6-1.2) mg/dl Est Cr Clr Drug Dosing ml/min Est GFR ( Amer) Est GFR (Non-Af Amer) BUN/Creatinine Ratio (10-20) Glucose (70-99) mg/dl Lactate (0.4-2.0) mmol/L Calcium (8.5-10.1) mg/dl Magnesium (1.8-2.4) mg/dl Total Bilirubin (0.2-1) mg/dl AST (15-37) U/L ALT (12-78) U/L Alkaline Phosphatase (45-117) U/L Troponin I (0-0.045) ng/ml Total Protein (6.4-8.2) gm/dl Albumin (3.4-5.0) gm/dl Globulin (2.5-4.0) gm/dl Albumin/Globulin Ratio (0.9-2) Lipase (73-393) U/L Procalcitonin (0-0.5) ng/ml Urine Color Urine Appearance (Clear) Urine pH (4.5-7.5) Ur Specific Mccune (1.000-1.030) Urine Protein (Negative) Urine Glucose (UA) (Negative) Urine Ketones (Negative) Urine Blood (Negative) Urine Nitrite (Negative) Urine Bilirubin (Negative) Urine Urobilinogen (Negative) Ur Leukocyte Esterase (Negative) Urine WBC (Auto) (0-5) /hpf Urine RBC (Auto) (0-4) /hpf U Hyaline Cast (Auto) (0-5) /lpf U Epithel Cells (Auto) (0-5) /lpf Urine Bacteria (Auto) (Negative) Nasal Screen MRSA (PCR) (Negative) Stool Occult Bld Scrn (Negative) Stl C. diff Tox B Gene (Neg) Stl C.difficile Tox A&B (Negative) COVID-19 Eval Order CovFluRsv at [facility] SARS-CoV-2 (PCR) (Negative) Influenza Type A (PCR) (Neg) Influ A Molecular Assay Cancelled Influenza Type B (PCR) (Neg) Influ B Molecular Assay Cancelled RSV (RT-PCR) (Neg) Blood Type Antibody Screen Crossmatch Diagnostic Findings CTAP Imaged inferior cardiac chambers are unremarkable. Distal tip of Omsqfq-g-[id number] catheter noted within the right atrium. 5 mm nodular densities suggestive of a pulmonary vessel is partially imaged within the right lower lobe on image 1 series 5. Mild bibasilar atelectasis. Study secondary to upper extremity positioning. There is no pneumatosis or pneumoperitoneum. Unremarkable spleen. The adrenal glands are within normal limits. Surgically absent gallbladder. Hepatic steatosis. There is patency of the hepatic and portal veins. There is persistent attenuation of the superior mesenteric vein which was previously noted at the level of the pancreatic head mass. Postoperative changes of interval Whipple procedure with persistent mild ductal prominence of the pancreatic tail. There is edema surrounding the pancreatic remnant with edema and trace fluid within the lesser sac extending into the mid mesentery. Additionally, there is mild wall thickening involving a few loops of jejunum within the upper abdomen with perienteric stranding. A few prominent lymph nodes of the mid mesentery measure up to 7 mm. Precaval lymph nodes measure up to 9 mm. No drainable fluid collection. There is partial distention with mild wall thickening of the ascending colon. Noninflamed appendix. Unremarkable kidneys. Probable cyst of the superior pole left kidney, 8 mm. Mild urinary bladder distention. Probable fibroid of the uterine fundus, 9 mm. No adnexal mass lesion. Unremarkable soft tissues. Degenerative changes of the spine, pelvis and hips. ORIF hardware of the proximal right femur. Ill-defined 2.0 cm lesion of the L1 vertebral body with mild peripheral sclerosis, unchanged from comparison. T9 hemangioma. IMPRESSION: 1. Interval Whipple procedure with resection of the previously noted mass of the pancreatic head/neck junction. 2. There is edema surrounding the pancreatic remnant with edema and trace fluid extending into the mid mesentery. Findings may be postsurgical or may reflect an acute pancreatitis. No postoperative fluid collection. 3. Mild wall thickening is noted involving a few loops of proximal jejunum and also the right hemicolon. Correlate clinically to exclude a nonspecific enterocolitis. 4. No pneumoperitoneum. 5. Hepatic steatosis. 6. Additional findings as above. Head CT: IMPRESSION: There is no hemorrhage, mass effect, or evidence of acute territorial ischemia by CT criteria. CXR: IMPRESSION: No active disease in the chest. (1) Neutropenia Neutropenia type: unspecified Qualified Code(s): D70.9 - Neutropenia, unspecified
[2020-09-02] MEDS: PANTOprazole 40 MG TAB PO SCH (08:57)
[2020-09-02 09:07] LABS: Hematocrit (blood only) 26.4 % (37-47); Hemoglobin 9.3 g/dL (12.0-16.0)
[2020-09-02 09:19] LABS: Albumin Level 2.1 gm/dl (3.4-5.0); BUN Creatinine Ratio 20.2 (10-20); Bilirubin Direct 1.8 mg/dl (0-0.2); Calcium 7.9 mg/dl (8.5-10.1); Creatinine Clr Calc Pharmacy 60.2 ml/min; Est GFR (African American) 89.7; Est GFR (Non-African American) 77.4; Potassium 3.8 mmol/L (3.5-5.1)
[2020-09-02 09:21] LABS: Albumin Level 2.1 gm/dl (3.4-5.0); BUN Creatinine Ratio 19.6 (10-20); Calcium 8.2 mg/dl (8.5-10.1); Creatinine Clr Calc Pharmacy 57.3 ml/min; Est GFR (African American) 84.5; Est GFR (Non-African American) 72.9; Potassium 3.8 mmol/L (3.5-5.1)
[2020-09-02 09:33] LABS: Albumin Globulin Ratio 0.7 (0.9-2); Bilirubin,Total 3.8 mg/dl (0.2-1); Globulin 2.9 gm/dl (2.5-4.0); Phosphorus 2.6 mg/dl (2.5-4.9); Troponin I 0.039 ng/ml (0-0.045)
[2020-09-02 09:34] LABS: Albumin Globulin Ratio 0.8 (0.9-2); Bilirubin,Total 3.7 mg/dl (0.2-1); Globulin 2.7 gm/dl (2.5-4.0); Total Protein 4.9 gm/dl (6.4-8.2)
[2020-09-02] MEDS ORDERED: PANCREAZE (LIPASE 10,500U) CAP PO PRN (09:49)
--- NOTE | 2020-09-02 10:21 | Electrocardiogram Report ---
Test Reason : Blood Pressure : / mmHG Vent. Rate : 051 BPM Atrial Rate : 051 BPM P-R Int : 146 ms QRS Dur : 094 ms QT Int : 470 ms P-R-T Axes : 076 081 074 degrees QTc Int : 433 ms Sinus bradycardia Incomplete right bundle branch block Nonspecific ST abnormality Abnormal ECG When compared with ECG of 01-SEP-2020 13:18, Vent. rate has decreased BY [address] elevation now present in Inferior leads Non-specific change in ST segment in Anterior leads Nonspecific T wave abnormality no longer evident in Inferior leads T wave inversion less evident in Anterior leads Confirmed by Shan Hurt ([id number] on 09/02/2020 10:21:13 AM Referred By: Ortiz Torres Confirmed By:Kody Hurt
--- NOTE | 2020-09-02 11:04 | Hospitalist Progress Note ---
Date of Service September 02, 2020 Assessment & Plan (1) Severe sepsis: (2) Neutropenic fever: (3) Lactic acidosis: - Generalized weakness/febrile at home - Septic shock - Acute blood loss anemia - Neutropenic fever - Thrombocytopenia - Possible pancreatitis/enterocolotis - Lactic acidosis -resolved 1.2 - Elevated LFTs - Epistaxis - resolved now - COVID-19 ruled out - Severe malnutrition H/O CVA with left hemiparesis H/O DVT on Eliquis - on hold for now Patient was transferred to ICU overnight. Currently patient is requiring nor epi. Patient is maintaining MAP. Adequate urine output. Wake, alert and oriented x3. Blood and urine cultures were obtained in the ED, pending thus far. We will continue with vancomycin/cefepime and Flagyl. C. difficile gene is positive, toxin negative. Patient with chronic diarrhea however nursing staff did notice some blood. Gastroenterology was consulted given enterocolitis/bright red blood per rectum. Plan is to continue to monitor for now. Abdominal exam is benign. CT abdomen/pelvis noted to have enterocolitis likely neutropenic. Will obtain stool culture/ova/parasites. Continue with n.p.o. except meds. Discussed with Dr. Torres -her oncologist Encourage spirometry - atelectasis on CT. Low threshold for transfer to tertiary care center if patient does not show any improvement. (4) Elevated LFTs: ALT 150-132, AST 87-81, total bilirubin 2.1, alk phos 255-219 Likely secondary to sepsis. Would also obtain right upper quadrant abdominal ultrasound. Patient does have biliary stent in place given history of pancreatic cancer. Will continue to monitor LFTs. (5) Acute blood loss anemia: Hemoglobin of 6.4 on admission. Patient was ordered 1 unit of PRBC. Last known hemoglobin of 3.3. Patient noted to have bright red blood per rectum. Gastroenterology has been consulted. CBC every 8 hours. (6) Carcinoma of head of pancreas: H/O adenocarcinoma of the head of the pancreas. EUS with staging at [facility] - 06/2019 Completion of radiation/chemotherapy - 03/2020 S/P Whipple procedure at [facility] 04/2020 Adjuvant chemotherapy was started last week. S/P neulasta on 08/27, 5 FU 08/26/[address] Ortiz Torres (7) Thrombocytopenia: HO hereditary hemorrhegic telangectasia H/O GI Bleeding Platelet of 18.6 on admission, this morning at 26.4. Transfuse for less than 10K or any signs of bleeding. 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 Torres (oncology) Follow up: PCP Dr. Michelle Torres upon discharge Admission and Anticipated Discharge Date Admission Date: September 01, 2020 Subjective Overnight patient was transferred to ICU. She was requiring pressor support. Corrected hemoglobin was reported last night of 6.4. This morning patient is doing okay. Ports she does not have any major complaints. Any chest pain, shortness of breath or any cough. Denies any abdominal pain. Did have loose bowel movements overnight that are chronic with blood denies any nausea or vomiting. No hematemesis. Denies any fever, sore throat or diaphoresis. Review of Systems Review of Systems: All systems reviewed & are unremarkable except as noted in HPI & below Physical Exam Physical Exam: General: A&Ox3 HENT: NCAT, MMM, EOMI Eyes: PERRLA Neck: Supple, normal range of motion CVS: normal rate and rhythm Resp: b/l good breath sounds, right sided central line in place absence of any erythema or active discharge Abdomen: Soft, nondistended and nontender Extremities: Absence of any edema Neuro: face symmetric, left-sided weakness noted from prior Skin: warm and dry, no rashes/lesions/errythema MSK: normal ROM, no joint swelling/erythema Results & Data Results & Data ([facility]) Vital Signs (Past 12 Hours) Vital Signs Temp Pulse Resp BP Pulse Ox 09/02/20 10:33 38 L 09/02/20 09:44 36.6 C 47 L 13 114/66 100 09/02/20 08:44 36.6 C 53 L 14 97/61 L 09/02/20 07:07 36.4 C L 51 L 124/70 100 09/02/20 06:53 47 L 16 124/70 09/02/20 06:15 36.8 C 48 L 124/59 L 100 09/02/20 05:53 36.8 C 49 L 126/60 100 09/02/20 05:23 36.8 C 55 L 113/55 L 09/02/20 05:08 36.6 C 63 122/55 L 100 09/02/20 04:52 36.6 C 60 12 109/54 L 100 09/02/20 04:16 36.7 C 73 20 81/48 L 100 09/02/20 04:13 36.7 C 78 14 77/44 L 100 09/02/20 04:07 36.8 C 72 16 73/45 L 100 09/02/20 03:52 36.8 C 71 14 81/45 L 100 09/02/20 03:37 36.9 C 74 15 79/48 L 100 09/02/20 03:22 36.9 C 76 12 84/44 L 100 09/02/20 03:07 77 15 97/54 L 100 09/02/20 03:03 63 15 130/45 L 99 09/02/20 02:52 76 2 L 72/45 L 100 09/02/20 02:36 81 15 72/48 L 99 09/02/20 02:28 81 17 72/43 L 99 09/02/20 02:26 79 16 72/43 L 99 09/02/20 02:03 89 19 76/38 L 99 09/02/20 02:02 90 19 76/44 L 99 09/02/20 01:56 84 16 74/46 L 100 09/02/20 01:26 94 H 12 75/47 L 91 09/02/20 00:56 92 H 18 79/41 L 99 09/02/20 00:51 93 H 16 82/42 L 99 09/02/20 00:28 37.5 C 09/02/20 00:26 97 H 0 L 81/44 L 99 09/01/20 23:56 101 H 16 85/43 L 99 09/01/20 23:36 39.1 C H 107 H 18 78/48 L 99 09/01/20 23:34 108 H 18 78/48 L 98 09/01/20 23:22 108 H 17 89/49 L 98 09/01/20 23:17 102 H 18 89/48 L 98 09/01/20 23:12 105 H 18 93/52 L 98 09/01/20 23:08 38.9 C H 86 20 89/49 L 98 09/01/20 23:07 107 H 13 90/49 L 98 09/01/20 23:05 109 H 24 93/49 L 98 09/01/20 23:04 38.9 C H 109 H 18 93/49 L 99
[2020-09-02] MEDS: metroNIDAZOLE 500 MG/100 ML BAG IV SCH ×2 (11:31→16:14)
[2020-09-02] MEDS ORDERED: VANCOMYCIN HCL 250 MG/5 ML SOLN PO SCH (12:00)
[2020-09-02] MEDS ORDERED: RASPBERRY SYRUP 5 ML UDP PO SCH (12:00)
[2020-09-02] MEDS ORDERED: POTASSIUM CHLORIDE CRTAB 20 MEQ TABCR PO STA (14:26)
--- NOTE | 2020-09-02 15:31 | Cardiology Consultation ---
Date of Consultation September 02, 2020 Assessment & Plan (1) Severe sepsis: Patient is neutropenic, and immunocompromised. Concerns that she has neutropenic enterocolitis. Continue vancomycin, linezolid, cefepime. (2) Sinus bradycardia: Sinus bradycardia is noted on no AV lauri blockers, given her degree of illness, a compensatory tachycardia would be expected. It is noted that during her previous admission dating back to October, her heart rate was in the 80s on EKG back then. She denies any subjective aches and pains, as high vagal tone is certainly possible contributing factor. At present, I recommend proceeding with a repeat echocardiogram as this may help manage her hemodynamics, and we will continue to observe her. Future considerations include transitioning her pressure support to dopamine infusion for heart rate and blood pressure support. PFO -Appropriate filter should be used with regards to IV and port access to prevent interatrial shunting /air embolism. H/o DVT / PE: Currently severe thrombocytopenia present, Eliquis on hold. History of Present Illness Attending Physician: Sanford Cordova MD History of Present Illness Niharika Swartz is a 65 year old female seen in cardiology consultation per the request of Dr Piper for the evaluation of bradycardia. Niharika has a history of adenocarcinoma the pancreas and underwent Whipple procedure on 04/27/2020 at [facility]. She receives chemotherapy via a right- sided port with most recent treatment on 08/26/20. She presented on 09/01/2020 with complaints of fever, chills, nausea, vomiting and diarrhea. She is currently in the intensive care unit, room 104, being treated for septic shock, with stool positive for C. difficile. Urine culture is notable for gram-negative bacilli. Pancytopenia noted yesterday occluding BC count 0.03, hemoglobin 6.4, and platelet count of 15. She has been observed to have sinus bradycardia, several brief runs of Mobitz type I second-degree AV block (Wenckebach block), noted earlier this morning on telemetry with transient bradycardia to the 38 to 40 bpm range. At the time of my assessment, sinus bradycardia 56 bpm was present on telemetry, and during my interview with the patient, her heart rate increased to 61 bpm. She denies any current abdominal discomfort. She is in no acute distress. Her blood pressure is stable with a systolic blood pressure in the 120s by right radial arterial line, and she is on a very low dose epinephrine infusion, 0.02 mcg/kg/min. Her history is otherwise notable for bilateral lower extremity DVT and pulmonary embolism diagnosed January, for which she has been treated with Eliquis as an outpatient. In October, while admitted for dehydration, she was diagnosed with a stroke with resultant sudden onset of left-sided weakness, which was subsequently felt to be due to air embolism related to a PFO with interatrial shunt. Allergies Allergy/AdvReac Type Severity Reaction Status Date / Time FILTER REQUIRED WITH IV AdvReac Unknown Uncoded 09/01/20 14:53 FLUIDS Home Medications Medication Instructions Recorded Confirmed Type loratadine [Claritin] 10 mg PO QAM 10/04/19 09/01/20 History pantoprazole 40 mg PO DAILY 01/07/20 09/01/20 History apixaban [Eliquis] 1.25 mg PO BID 09/01/20 09/01/20 History Patient History Medical History Anemia Closed fracture of right hip requiring operative repair with malunion DVT prophylaxis Elevated lactic acid level Elevated LFTs Hemiplegia affecting left dominant side Neutropenia Neutropenic fever Pancreatic cancer Patent foramen ovale Pneumocephalus Pulmonary embolism Severe malnutrition Stroke Thrombocytopenia Transaminitis Urinary tract infection Surgical History History of ERCP 07/05/2019 - biliary stricture, adenocarcinoma on cytology 08/28/2019 - biliary stricture, stent replaced History of esophagogastroduodenoscopy (EGD) EGD with EUS. 07/10/2019. pancreatic adenocarcinoma, enlarged lymph node, GB sludge Family History Mother , age 86 C. diff Cancer possible pancreas Father , age 82 prostate cancer No problems noted. Brother Cancer prostate met cancer and melanoma Brother Cancer melanoma Sister Tqajn-Mxomw-Dyoze disease Sister No problems noted. Son No problems noted. Son No problems noted. 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 Other Information That Helps Us Care for You: No Feels Safe at Home: Yes Safety Concerns: Feels Safe At This Time Childhood Exposure to Second-Hand Smoke: No caffeine: Yes (one cup per day ) during the past year weight has: decreased > 10 lbs Dental Care, Regularly: Yes Physical Activity Frequency: 1-2 Times per Week Seatbelt Use: always Sunscreen Use: Yes Assistive Devices: Cane and Glasses Review of Systems Review of Systems: All systems reviewed & are unremarkable except as noted in HPI & below Physical Exam Physical Exam: Temp Pulse Resp BP Pulse Ox 37.5 C 56 L 10 L 92/57 L 99 09/02/20 14:44 09/02/20 14:44 09/02/20 14:44 09/02/20 14:44 09/02/20 14:44 Constitutional: Frail, chronically ill in appearance Respiratory: normal respiratory effort, lungs clear to auscultation Cardiovascular: Rate/Rhythm: + bradycardic Heart Sounds: no murmur Vessels: no JVD Extremities: no edema Gastrointestinal (Abdomen): normal bowel sounds, soft, nontender, no hepatosplenomegaly Neurologic: Left-sided weakness, which is a chronic finding, conversant, intact Results & Data ([facility]) Vital Signs (Past 12 Hours) Vital Signs Temp Pulse Resp BP Pulse Ox 09/02/20 14:44 37.5 C 56 L 10 L 92/57 L 99 09/02/20 13:44 37.5 C 55 L 0 L 85/51 L 100 09/02/20 12:44 37.4 C 62 13 89/57 L 99 09/02/20 11:44 37.2 C 54 L 6 L 100/58 L 100 09/02/20 10:44 36.9 C 52 L 8 L 95/59 L 100 09/02/20 10:33 38 L 09/02/20 09:44 36.6 C 47 L 13 114/66 100 09/02/20 08:44 36.6 C 53 L 14 97/61 L 100 09/02/20 07:07 36.4 C L 51 L 124/70 100 09/02/20 06:53 47 L 16 124/70 09/02/20 06:15 36.8 C 48 L 124/59 L 100 09/02/20 05:53 36.8 C 49 L 126/60 100 09/02/20 05:23 36.8 C 55 L 113/55 L 09/02/20 05:08 36.6 C 63 122/55 L 09/02/20 04:52 36.6 C 60 12 109/54 L 09/02/20 04:16 36.7 C 73 20 81/48 L 100 09/02/20 04:13 36.7 C 78 14 77/44 L 09/02/20 04:07 36.8 C 72 16 73/45 L 09/02/20 03:52 36.8 C 71 14 81/45 L 09/02/20 03:37 36.9 C 74 15 79/48 L 100 Laboratory Results Cardiac Enzymes 09/02/20 09/02/20 Range/Units 08:42 08:42 AST 82 H 81 H (15-37) U/L Troponin I 0.039 (0-0.045) ng/ml CBC 09/01/20 09/02/20 09/02/20 Range/Units 22:13 02:13 08:42 WBC 0.03 L* (4.8-10.8) K/uL RBC 1.97 L (4.2-5.4) M/uL Hgb 6.4 L* D 5.6 L* 9.3 L D (12.0-16.0) g/dL Hct 18.6 L* 16.2 L* 26.4 L (37-47) % Plt Count 15 L* (130-400) K/uL Neut # (Auto) Cancelled Lymph # (Auto) Cancelled [place] # (Auto) Cancelled Eos # (Auto) Cancelled Baso # (Auto) Cancelled Comprehensive Metabolic Panel 09/02/20 09/02/20 Range/Units 08:42 08:42 Sodium 140 141 (136-145) mmol/L Potassium 3.8 3.8 (3.5-5.1) mmol/L Chloride 114 H 113 H (98-107) mmol/L Carbon Dioxide 22 22 (21-32) mmol/L BUN 16 16 (7-18) mg/dl Creatinine 0.84 0.80 (0.6-1.2) mg/dl Glucose 137 H 134 H (70-99) mg/dl Calcium 8.2 L 7.9 L (8.5-10.1) mg/dl Direct Bilirubin 1.8 H (0-0.2) mg/dl AST 82 H 81 H (15-37) U/L ALT 132 H 132 H (12-78) U/L Alkaline Phosphatase 218 H 219 H (45-117) U/L Total Protein 4.9 L 5.0 L (6.4-8.2) gm/dl Albumin 2.1 L 2.1 L (3.4-5.0) gm/dl Intake and Output 09/02/20 09/02/20 09/02/20 06:59 14:59 22:59 Intake Total 2372.868 / 5355.368 804.3 / 804.3 Output Total 1000 / 1001 400 / 400 Balance 1372.868 / 4354.368 404.3 / 404.3 Intake: IV 2093.868 / 5076.368 374.3 / 374.3 Lr 1,000 ml @ 500 mls/hr IV . 1858.330 / 1858.330 Q2H COLT Rx#:[id number] MAGNESIUM SULFATE / D5W 1 gm In 100.000 / 100.000 100 ml @ 50 mls/hr IV ONE ONE Rx#:[id number] LEVOPHED/D5W 8 mg In 508 ml @ 0 35.538 / 35.538 9.3 / 9.3 .02 MCG/KG/MIN 4.145 mls/hr IV .Q24H COLT Rx#:[id number] Vancomycin HCl 750 mg In Nss 265 / 265 250 ml @ 200 mls/hr IV Q12H COLT Rx#:[id number] FLAGYL 500 mg In 100 ml @ 100 100 / 100 100 / 100 mls/hr IV Q8H COLT Rx#:[id number] Oral 120 / 120 Intake (Blood Product) Amt 279 / 279 310 / 310 Packed Cells, Leukored, Irrad 0 / 0 310 / 310 Unit [id number] Pr Plp3 Unit [id number] 279 / 279 Output: Urine Amount (Catheter) 1000 / 1000 400 / 400 Hines/Indwelling 1000 / 1000 400 / 400 Other: Weight 54.4 kg Patient Weight 09/03/20 06:59 Weight 54.4 kg Diagnostic Findings EKG performed this morning 09/02/2020 and reviewed independently sinus bradycardia 51 bpm, incomplete right bundle branch block, with nonspecific repolarization changes, artifact noted in leads V1 V2, diffuse mild J-point elevation which is more prominent compared to the previous tracing incomplete right bundle branch block is a neck finding.
[2020-09-02] MEDS: CEFEPIME 2,000 MG in SYRINGE 0 ML IV SCH (16:14)
[2020-09-02 16:43] LABS: BUN Creatinine Ratio 22.2 (10-20); Calcium 7.8 mg/dl (8.5-10.1); Creatinine Clr Calc Pharmacy 64.2 ml/min; Est GFR (African American) 96.9; Est GFR (Non-African American) 83.6; Potassium 3.5 mmol/L (3.5-5.1)
[2020-09-02 16:53] LABS: Thyroid Stimulating Hormone 1.68 uIu/ml (0.300-4.500); Troponin I 0.029 ng/ml (0-0.045)
[2020-09-02 16:56] LABS: Hematocrit (blood only) 25.3 % (37-47); Mean Corpuscular Hemoglobin 31.4 pg (25-34); Mean Corpuscular Hgb Conc 35.6 g/dL (32-36); Mean Corpuscular Volume 88.2 fL (80-100); Mean Platelet Volume 10.7 fL (7.4-10.4); Platelet Count 26 K/uL (130-400); RDW Coefficient of Variation 16.2 % (11.5-14.5); RDW Standard Deviation 52.4 fL (36.4-46.3); Red Blood Count 2.87 M/uL (4.2-5.4); White Blood Count 0.17 K/uL (4.8-10.8)
[2020-09-02] MEDS: ACETAMINOPHEN 325 MG TAB PO PRN (17:25)
[2020-09-02] MEDS: NORMOSOL-R 1,000 ML IV SCH ×2 (17:26→22:35)
[2020-09-02] MEDS ORDERED: NORMOSOL-R 500 ML IV ONE ×2 (18:51→23:45)
[2020-09-02 22:36] LABS: Hematocrit (blood only) 23.7 % (37-47); Hemoglobin 8.5 g/dL (12.0-16.0); Mean Corpuscular Hemoglobin 31.6 pg (25-34); Mean Corpuscular Hgb Conc 35.9 g/dL (32-36); Mean Corpuscular Volume 88.1 fL (80-100); Mean Platelet Volume 10.7 fL (7.4-10.4); Platelet Count 23 K/uL (130-400); RDW Coefficient of Variation 16.5 % (11.5-14.5); RDW Standard Deviation 53.4 fL (36.4-46.3); Red Blood Count 2.69 M/uL (4.2-5.4); White Blood Count 0.24 K/uL (4.8-10.8)
[2020-09-03] MEDS ORDERED: VANCOMYCIN TROUGH ONE (05:30)
[2020-09-03] MEDS: VANCOMYCIN HCL 750 MG in SODIUM CHLORIDE 0.9% 250 ML IV SCH (05:44)
[2020-09-03 06:00] LABS: Hemoglobin 8.5 g/dL (12.0-16.0); Mean Corpuscular Hemoglobin 31.1 pg (25-34); Mean Corpuscular Hgb Conc 35.4 g/dL (32-36); Mean Corpuscular Volume 87.9 fL (80-100); Mean Platelet Volume 10.3 fL (7.4-10.4); Platelet Count 18 K/uL (130-400); RDW Coefficient of Variation 16.5 % (11.5-14.5); RDW Standard Deviation 53.6 fL (36.4-46.3); Red Blood Count 2.73 M/uL (4.2-5.4)
[2020-09-03 06:02] LABS: Albumin Level 1.8 gm/dl (3.4-5.0); BUN Creatinine Ratio 24.9 (10-20); Calcium 7.3 mg/dl (8.5-10.1); Creatinine Clr Calc Pharmacy 76.5 ml/min; Est GFR (African American) 109.1; Est GFR (Non-African American) 94.1; Magnesium 2.1 mg/dl (1.8-2.4); Potassium 3.3 mmol/L (3.5-5.1)
[2020-09-03 06:24] LABS: Albumin Globulin Ratio 0.7 (0.9-2); Bilirubin,Total 1.7 mg/dl (0.2-1); Globulin 2.5 gm/dl (2.5-4.0); Phosphorus 1.4 mg/dl (2.5-4.9); Total Protein 4.3 gm/dl (6.4-8.2)
[2020-09-03] MEDS ORDERED: POTASSIUM PHOS 3 MMOL/1 ML INFUSION IV STA ×2 (06:41→08:07)
[2020-09-03] MEDS: Standard Conc 16mcg/mL; 8mg in 500mL IV SCH (07:15)
[2020-09-03] MEDS ORDERED: POTASSIUM CHLORIDE CRTAB 20 MEQ TABCR PO STA (08:11)
[2020-09-03] MEDS ORDERED: POTASSIUM PHOSPHATE 30 MMOL in SODIUM CHLORIDE 0.9% 500 ML IV ONE (08:15)
--- NOTE | 2020-09-03 08:48 | Gastroenterology Progress Note ---
Date of Service September 03, 2020 Assessment & Plan (1) Enterocolitis: This is a 65 y/o female with PMHx pancreatic CA s/p Whipple 04/2020, with pancytopenia, chronically elevated LFTs, DVT on Eliquis, s/p 1st tx with FOLFIRINOX 08/26, Neulasta 08/27, admitted with vomiting, fever, found to have profound pancytopenia, CT w/enterocolitis, septic shock requiring pressor support, VS currently stable. C. diff toxin negative. COVID neg. Presentation consistent with neutropenic enterocolitis in the setting of recent chemo. HGB improved with pRBCs; and she remains on broad spectrum ABX. On exam, abd soft, nontender. - Await stool culture, stool for ova and parasites - Await martinez cultures - Continue broad spectrum ABX - Continue hydration with IVF - Recommend bowel rest - Supportive care with nutritional support - Monitor CBC, trend H&H, transfuse PRN - Recommend optimizing her WBC and plt count given profound neutropenia/thrombocytopenia - Continue BP support as per critical care service GI will sign off. Please see addendum below with additional recommendation from my supervising physician. Admission and Anticipated Discharge Date Admission Date: September 01, 2020 Supervising Physician Co-Signing Physician Notes I saw and evaluated the patient. She notes that she still having loose to liquid stool numerous times per day. She was C. difficile positive on PCR but appears to be toxin negative. With her neutropenia I am not certain if she should have prophylactic therapy for C. difficile, therefore I would highly kaelyn mmend that both a hematology oncology referral be placed and infectious disease consultation be obtained. Recommendations ID consultation Hematology / oncology consultation Please call with any questions or concerns Subjective Patient seen and examined, chart reviewed. No acute events overnight. Diarrhea has improved; she had 1 episode this AM. Of note, she has chronic loose stool. Stool cultures, O&P pending. No vomiting, abd pain, CP, SOB, fever. Review of Systems Review of Systems: All systems reviewed & are unremarkable except as noted in HPI & below Physical Exam Constitutional: + thin; no acute distress chronically ill Eyes: + anicteric sclerae Respiratory: normal respiratory effort; no respiratory distress Cardiovascular: Rate/Rhythm: regular rate and + bradycardic Gastrointestinal (Abdomen): Inspection/Auscultation: abdomen normal to inspection and normal bowel sounds; abdomen not distended Percussion/Palpation: abdomen soft; abdomen nontender Skin: no rashes, warm and dry Psychiatric: A+Ox3, euthymic affect Results & Data ([facility]) Vital Signs (Past 12 Hours) Vital Signs Temp Pulse Resp BP Pulse Ox 09/03/20 06:00 37.4 C 59 L 13 95 09/03/20 05:44 37.3 C 66 23 98/55 L 96 09/03/20 05:00 37.3 C 62 17 97 09/03/20 04:44 37.3 C 63 20 100/60 96 09/03/20 04:00 37.2 C 57 L 0 L 96 09/03/20 03:44 37.2 C 64 16 94/53 L 96 09/03/20 03:00 37.1 C 58 L 0 L 95 09/03/20 02:44 37.1 C 60 16 90/53 L 97 09/03/20 02:00 37.0 C 62 14 95 09/03/20 01:44 37.0 C 65 16 93/51 L 95 09/03/20 01:00 36.8 C 63 16 97 09/03/20 00:44 37.0 C 61 15 86/55 L 96 09/03/20 00:00 36.8 C 61 17 96 09/02/20 22:00 36.7 C 60 0 L 88/47 L 94 09/02/20 21:00 36.8 C 57 L 18 92/51 L 95 Laboratory Results 09/03/20 09/03/20 09/03/20 Range/Units 05:44 05:09 05:09 WBC (4.8-10.8) K/uL RBC (4.2-5.4) M/uL Hgb (12.0-16.0) g/dL Hct (37-47) % MCV (80-100) fL MCH (25-34) pg MCHC (32-36) g/dL RDW Std Deviation (36.4-46.3) fL RDW Coeff of Rajesh (11.5-14.5) % Plt Count (130-400) K/uL MPV (7.4-10.4) fL Immature Gran % (Auto) Neut % (Auto) Lymph % (Auto) Brantley % (Auto) Eos % (Auto) Baso % (Auto) Neut # (Auto) Lymph # (Auto) Brantley # (Auto) Eos # (Auto) Baso # (Auto) Immature Gran # (Auto) Neutrophils % (Manual) Band Neutrophils % Lymphocytes % (Manual) Prolymphocyte % Reactive Lymphs % (Man) Monocytes % (Manual) Eosinophils % (Manual) Basophils % (Manual) Metamyelocytes % (Man) Myelocytes % (Man) Promyelocytes % (Man) Blast Cells % (Manual) Plasma Cell % (Manual) Other Cells % Nucleated RBC % Neutrophils # (Manual) Band Neutrophils # Total Absolute Neuts Lymphocytes # (Manual) Prolymphocyte # Reactive Lymphs # Total Abs Lymphocytes Monocytes # (Manual) Eosinophils # (Manual) Basophils # (Manual) Metamyelocytes # (Man) Myelocytes # (Manual) Promyelocytes # (Man) Blast Cells # (Man) Plasma Cell # (Manual) Other Cells # Nucleated RBCs # (Man) Hypersegmented Neuts Hyposegmented Neuts Hypogranular Neuts Large Granular Lymphs # Lrg Granular Lymphs Hairy Cells Smudge Cells Toxic Granulation Toxic Vacuolation Dohle Bodies Jarad Rods Hypogranular Platelets Clumped Platelets Giant Platelets Platelet Satelliting RBC Morphology Polychromasia Hypochromasia Poikilocytosis Basophilic Stippling Anisocytosis Microcytosis Macrocytosis Spherocytes Pappenheimer Bodies Sickle Cells Target Cells Tear Drop Cells Ovalocytes Stomatocytes [place] Bodies Echinocytes Acanthocytes (Spur) Rouleaux RBC Agglutinates Schistocytes RBC Morph Comment Sezary Cell Sodium 143 (136-145) mmol/L Potassium 3.3 L (3.5-5.1) mmol/L Chloride 116 H (98-107) mmol/L Carbon Dioxide 21 (21-32) mmol/L Anion Gap 6.0 (3-11) BUN 16 (7-18) mg/dl Creatinine 0.63 (0.6-1.2) mg/dl Est Cr Clr Drug Dosing 76.5 ml/min Est GFR ( Amer) 109.1 Est GFR (Non-Af Amer) 94.1 BUN/Creatinine Ratio 24.9 H (10-20) Glucose 78 (70-99) mg/dl POC Glucose 80 (70-99) mg/dl Lactate (0.4-2.0) mmol/L Calcium 7.3 L (8.5-10.1) mg/dl Phosphorus 1.4 L* D (2.5-4.9) mg/dl Magnesium 2.1 (1.8-2.4) mg/dl Total Bilirubin 1.7 H D (0.2-1) mg/dl Direct Bilirubin (0-0.2) mg/dl AST 36 (15-37) U/L ALT 89 H (12-78) U/L Alkaline Phosphatase 185 H (45-117) U/L Troponin I (0-0.045) ng/ml Total Protein 4.3 L (6.4-8.2) gm/dl Albumin 1.8 L (3.4-5.0) gm/dl Globulin 2.5 (2.5-4.0) gm/dl Albumin/Globulin Ratio 0.7 L (0.9-2) Procalcitonin (0-0.5) ng/ml TSH (0.300-4.500) uIu/ml Random Cortisol mcg/dl Stool Occult Bld Scrn (Negative) Stool Comments Vancomycin Trough 12.4 (See Comment) mcg/ml Blood Type Antibody Screen Crossmatch 09/03/20 09/02/20 09/02/20 Range/Units 05:09 Unknown 23:33 WBC 0.20 L* (4.8-10.8) K/uL RBC 2.73 L (4.2-5.4) M/uL Hgb 8.5 L (12.0-16.0) g/dL Hct 24.0 L (37-47) % MCV 87.9 (80-100) fL MCH 31.1 (25-34) pg MCHC 35.4 (32-36) g/dL RDW Std Deviation 53.6 H (36.4-46.3) fL RDW Coeff of Rajesh 16.5 H (11.5-14.5) % Plt Count 18 L* (130-400) K/uL MPV 10.3 (7.4-10.4) fL Immature Gran % (Auto) Cancelled Neut % (Auto) Cancelled Lymph % (Auto) Cancelled Brantley % (Auto) Cancelled Eos % (Auto) Cancelled Baso % (Auto) Cancelled Neut # (Auto) Cancelled Lymph # (Auto) Cancelled [place]ley # (Auto) Cancelled Eos # (Auto) Cancelled Baso # (Auto) Cancelled Immature Gran # (Auto) Cancelled Neutrophils % (Manual) Cancelled Band Neutrophils % Cancelled Lymphocytes % (Manual) Cancelled Prolymphocyte % Cancelled Reactive Lymphs % (Man) Cancelled Monocytes % (Manual) Cancelled Eosinophils % (Manual) Cancelled Basophils % (Manual) Cancelled Metamyelocytes % (Man) Cancelled Myelocytes % (Man) Cancelled Promyelocytes % (Man) Cancelled Blast Cells % (Manual) Cancelled Plasma Cell % (Manual) Cancelled Other Cells % Cancelled Nucleated RBC % Cancelled Neutrophils # (Manual) Cancelled Band Neutrophils # Cancelled Total Absolute Neuts Cancelled Lymphocytes # (Manual) Cancelled Prolymphocyte # Cancelled Reactive Lymphs # Cancelled Total Abs Lymphocytes Cancelled Monocytes # (Manual) Cancelled Eosinophils # (Manual) Cancelled Basophils # (Manual) Cancelled Metamyelocytes # (Man) Cancelled Myelocytes # (Manual) Cancelled Promyelocytes # (Man) Cancelled Blast Cells # (Man) Cancelled Plasma Cell # (Manual) Cancelled Other Cells # Cancelled Nucleated RBCs # (Man) Cancelled Hypersegmented Neuts Cancelled Hyposegmented Neuts Cancelled Hypogranular Neuts Cancelled Large Granular Lymphs Cancelled # Lrg Granular Lymphs Cancelled Hairy Cells Cancelled Smudge Cells Cancelled Toxic Granulation Cancelled Toxic Vacuolation Cancelled Dohle Bodies Cancelled Jarad Rods Cancelled Hypogranular Platelets Cancelled Clumped Platelets Cancelled Giant Platelets Cancelled Platelet Satelliting Cancelled RBC Morphology Cancelled Polychromasia Cancelled Hypochromasia Cancelled Poikilocytosis Cancelled Basophilic Stippling Cancelled Anisocytosis Cancelled Microcytosis Cancelled Macrocytosis Cancelled Spherocytes Cancelled Pappenheimer Bodies Cancelled Sickle Cells Cancelled Target Cells Cancelled Tear Drop Cells Cancelled Ovalocytes Cancelled Stomatocytes Cancelled [place] Bodies Cancelled Echinocytes Cancelled Acanthocytes (Spur) Cancelled Rouleaux Cancelled RBC Agglutinates Cancelled Schistocytes Cancelled RBC Morph Comment Cancelled Sezary Cell Cancelled Sodium (136-145) mmol/L Potassium (3.5-5.1) mmol/L Chloride (98-107) mmol/L Carbon Dioxide (21-32) mmol/L Anion Gap (3-11) BUN (7-18) mg/dl Creatinine (0.6-1.2) mg/dl Est Cr Clr Drug Dosing ml/min Est GFR ( Amer) Est GFR (Non-Af Amer) BUN/Creatinine Ratio (10-20) Glucose (70-99) mg/dl POC Glucose 99 (70-99) mg/dl Lactate (0.4-2.0) mmol/L Calcium (8.5-10.1) mg/dl Phosphorus (2.5-4.9) mg/dl Magnesium (1.8-2.4) mg/dl Total Bilirubin (0.2-1) mg/dl Direct Bilirubin (0-0.2) mg/dl AST (15-37) U/L ALT (12-78) U/L Alkaline Phosphatase (45-117) U/L Troponin I (0-0.045) ng/ml Total Protein (6.4-8.2) gm/dl Albumin (3.4-5.0) gm/dl Globulin (2.5-4.0) gm/dl Albumin/Globulin Ratio (0.9-2) Procalcitonin (0-0.5) ng/ml TSH (0.300-4.500) uIu/ml Random Cortisol mcg/dl Stool Occult Bld Scrn Positive A (Negative) Stool Comments Vancomycin Trough (See Comment) mcg/ml Blood Type Antibody Screen Crossmatch 09/02/20 09/02/20 09/02/20 Range/Units 21:43 16:14 16:14 WBC 0.24 L* 0.17 L* (4.8-10.8) K/uL RBC 2.69 L 2.87 L (4.2-5.4) M/uL Hgb 8.5 L 9.0 L (12.0-16.0) g/dL Hct 23.7 L 25.3 L (37-47) % MCV 88.1 88.2 D (80-100) fL MCH 31.6 31.4 (25-34) pg MCHC 35.9 35.6 (32-36) g/dL RDW Std Deviation 53.4 H 52.4 H (36.4-46.3) fL RDW Coeff of Rajesh 16.5 H 16.2 H (11.5-14.5) % Plt Count 23 L* 26 L* D (130-400) K/uL MPV 10.7 H 10.7 H (7.4-10.4) fL Immature Gran % (Auto) Cancelled Cancelled Neut % (Auto) Cancelled Cancelled Lymph % (Auto) Cancelled Cancelled [place]ley % (Auto) Cancelled Cancelled Eos % (Auto) Cancelled Cancelled Baso % (Auto) Cancelled Cancelled Neut # (Auto) Cancelled Cancelled Lymph # (Auto) Cancelled Cancelled [place] # (Auto) Cancelled Cancelled Eos # (Auto) Cancelled Cancelled Baso # (Auto) Cancelled Cancelled Immature Gran # (Auto) Cancelled Cancelled Neutrophils % (Manual) Cancelled Cancelled Band Neutrophils % Cancelled Cancelled Lymphocytes % (Manual) Cancelled Cancelled Prolymphocyte % Cancelled Cancelled Reactive Lymphs % (Man) Cancelled Cancelled Monocytes % (Manual) Cancelled Cancelled Eosinophils % (Manual) Cancelled Cancelled Basophils % (Manual) Cancelled Cancelled Metamyelocytes % (Man) Cancelled Cancelled Myelocytes % (Man) Cancelled Cancelled Promyelocytes % (Man) Cancelled Cancelled Blast Cells % (Manual) Cancelled Cancelled Plasma Cell % (Manual) Cancelled Cancelled Other Cells % Cancelled Cancelled Nucleated RBC % Cancelled Cancelled Neutrophils # (Manual) Cancelled Cancelled Band Neutrophils # Cancelled Cancelled Total Absolute Neuts Cancelled Cancelled Lymphocytes # (Manual) Cancelled Cancelled Prolymphocyte # Cancelled Cancelled Reactive Lymphs # Cancelled Cancelled Total Abs Lymphocytes Cancelled Cancelled Monocytes # (Manual) Cancelled Cancelled Eosinophils # (Manual) Cancelled Cancelled Basophils # (Manual) Cancelled Cancelled Metamyelocytes # (Man) Cancelled Cancelled Myelocytes # (Manual) Cancelled Cancelled Promyelocytes # (Man) Cancelled Cancelled Blast Cells # (Man) Cancelled Cancelled Plasma Cell # (Manual) Cancelled Cancelled Other Cells # Cancelled Cancelled Nucleated RBCs # (Man) Cancelled Cancelled Hypersegmented Neuts Cancelled Cancelled Hyposegmented Neuts Cancelled Cancelled Hypogranular Neuts Cancelled Cancelled Large Granular Lymphs Cancelled Cancelled # Lrg Granular Lymphs Cancelled Cancelled Hairy Cells Cancelled Cancelled Smudge Cells Cancelled Cancelled Toxic Granulation Cancelled Cancelled Toxic Vacuolation Cancelled Cancelled Dohle Bodies Cancelled Cancelled Jarad Rods Cancelled Cancelled Hypogranular Platelets Cancelled Cancelled Clumped Platelets Cancelled Cancelled Giant Platelets Cancelled Cancelled Platelet Satelliting Cancelled Cancelled RBC Morphology Cancelled Cancelled Polychromasia Cancelled Cancelled Hypochromasia Cancelled Cancelled Poikilocytosis Cancelled Cancelled Basophilic Stippling Cancelled Cancelled Anisocytosis Cancelled Cancelled Microcytosis Cancelled Cancelled Macrocytosis Cancelled Cancelled Spherocytes Cancelled Cancelled Pappenheimer Bodies Cancelled Cancelled Sickle Cells Cancelled Cancelled Target Cells Cancelled Cancelled Tear Drop Cells Cancelled Cancelled Ovalocytes Cancelled Cancelled Stomatocytes Cancelled Cancelled [place] Bodies Cancelled Cancelled Echinocytes Cancelled Cancelled Acanthocytes (Spur) Cancelled Cancelled Rouleaux Cancelled Cancelled RBC Agglutinates Cancelled Cancelled Schistocytes Cancelled Cancelled RBC Morph Comment Cancelled Cancelled Sezary Cell Cancelled Cancelled Sodium 143 (136-145) mmol/L Potassium 3.5 (3.5-5.1) mmol/L Chloride 115 H (98-107) mmol/L Carbon Dioxide 25 (21-32) mmol/L Anion Gap 3.0 (3-11) BUN 17 (7-18) mg/dl Creatinine 0.75 (0.6-1.2) mg/dl Est Cr Clr Drug Dosing 64.2 ml/min Est GFR ( Amer) 96.9 Est GFR (Non-Af Amer) 83.6 BUN/Creatinine Ratio 22.2 H (10-20) Glucose 109 H (70-99) mg/dl POC Glucose (70-99) mg/dl Lactate (0.4-2.0) mmol/L Calcium 7.8 L (8.5-10.1) mg/dl Phosphorus (2.5-4.9) mg/dl Magnesium (1.8-2.4) mg/dl Total Bilirubin (0.2-1) mg/dl Direct Bilirubin (0-0.2) mg/dl AST (15-37) U/L ALT (12-78) U/L Alkaline Phosphatase (45-117) U/L Troponin I 0.029 (0-0.045) ng/ml Total Protein (6.4-8.2) gm/dl Albumin (3.4-5.0) gm/dl Globulin (2.5-4.0) gm/dl Albumin/Globulin Ratio (0.9-2) Procalcitonin (0-0.5) ng/ml TSH 1.680 (0.300-4.500) uIu/ml Random Cortisol mcg/dl Stool Occult Bld Scrn (Negative) Stool Comments Vancomycin Trough (See Comment) mcg/ml Blood Type Antibody Screen Crossmatch 09/02/20 09/02/20 09/02/20 Range/Units 11:11 08:42 08:42 WBC (4.8-10.8) K/uL RBC (4.2-5.4) M/uL Hgb 9.3 L D (12.0-16.0) g/dL Hct 26.4 L (37-47) % MCV (80-100) fL MCH (25-34) pg MCHC (32-36) g/dL RDW Std Deviation (36.4-46.3) fL RDW Coeff of Rajesh (11.5-14.5) % Plt Count (130-400) K/uL MPV (7.4-10.4) fL Immature Gran % (Auto) Neut % (Auto) Lymph % (Auto) [place] % (Auto) Eos % (Auto) Baso % (Auto) Neut # (Auto) Lymph # (Auto) [place] # (Auto) Eos # (Auto) Baso # (Auto) Immature Gran # (Auto) Neutrophils % (Manual) Band Neutrophils % Lymphocytes % (Manual) Prolymphocyte % Reactive Lymphs % (Man) Monocytes % (Manual) Eosinophils % (Manual) Basophils % (Manual) Metamyelocytes % (Man) Myelocytes % (Man) Promyelocytes % (Man) Blast Cells % (Manual) Plasma Cell % (Manual) Other Cells % Nucleated RBC % Neutrophils # (Manual) Band Neutrophils # Total Absolute Neuts Lymphocytes # (Manual) Prolymphocyte # Reactive Lymphs # Total Abs Lymphocytes Monocytes # (Manual) Eosinophils # (Manual) Basophils # (Manual) Metamyelocytes # (Man) Myelocytes # (Manual) Promyelocytes # (Man) Blast Cells # (Man) Plasma Cell # (Manual) Other Cells # Nucleated RBCs # (Man) Hypersegmented Neuts Hyposegmented Neuts Hypogranular Neuts Large Granular Lymphs # Lrg Granular Lymphs Hairy Cells Smudge Cells Toxic Granulation Toxic Vacuolation Dohle Bodies Jarad Rods Hypogranular Platelets Clumped Platelets Giant Platelets Platelet Satelliting RBC Morphology Polychromasia Hypochromasia Poikilocytosis Basophilic Stippling Anisocytosis Microcytosis Macrocytosis Spherocytes Pappenheimer Bodies Sickle Cells Target Cells Tear Drop Cells Ovalocytes Stomatocytes [place] Bodies Echinocytes Acanthocytes (Spur) Rouleaux RBC Agglutinates Schistocytes RBC Morph Comment Sezary Cell Sodium (136-145) mmol/L Potassium (3.5-5.1) mmol/L Chloride (98-107) mmol/L Carbon Dioxide (21-32) mmol/L Anion Gap (3-11) BUN (7-18) mg/dl Creatinine (0.6-1.2) mg/dl Est Cr Clr Drug Dosing ml/min Est GFR ( Amer) Est GFR (Non-Af Amer) BUN/Creatinine Ratio (10-20) Glucose (70-99) mg/dl POC Glucose (70-99) mg/dl Lactate (0.4-2.0) mmol/L Calcium (8.5-10.1) mg/dl Phosphorus (2.5-4.9) mg/dl Magnesium (1.8-2.4) mg/dl Total Bilirubin (0.2-1) mg/dl Direct Bilirubin (0-0.2) mg/dl AST (15-37) U/L ALT (12-78) U/L Alkaline Phosphatase (45-117) U/L Troponin I (0-0.045) ng/ml Total Protein (6.4-8.2) gm/dl Albumin (3.4-5.0) gm/dl Globulin (2.5-4.0) gm/dl Albumin/Globulin Ratio (0.9-2) Procalcitonin 17.93 H (0-0.5) ng/ml TSH (0.300-4.500) uIu/ml Random Cortisol mcg/dl Stool Occult Bld Scrn (Negative) Stool Comments Pending Vancomycin Trough (See Comment) mcg/ml Blood Type Antibody Screen Crossmatch 09/02/20 09/02/20 09/02/20 Range/Units 08:42 08:42 08:42 WBC (4.8-10.8) K/uL RBC (4.2-5.4) M/uL Hgb (12.0-16.0) g/dL Hct (37-47) % MCV (80-100) fL MCH (25-34) pg MCHC (32-36) g/dL RDW Std Deviation (36.4-46.3) fL RDW Coeff of Rajesh (11.5-14.5) % Plt Count (130-400) K/uL MPV (7.4-10.4) fL Immature Gran % (Auto) Neut % (Auto) Lymph % (Auto) [place] % (Auto) Eos % (Auto) Baso % (Auto) Neut # (Auto) Lymph # (Auto) [place] # (Auto) Eos # (Auto) Baso # (Auto) Immature Gran # (Auto) Neutrophils % (Manual) Band Neutrophils % Lymphocytes % (Manual) Prolymphocyte % Reactive Lymphs % (Man) Monocytes % (Manual) Eosinophils % (Manual) Basophils % (Manual) Metamyelocytes % (Man) Myelocytes % (Man) Promyelocytes % (Man) Blast Cells % (Manual) Plasma Cell % (Manual) Other Cells % Nucleated RBC % Neutrophils # (Manual) Band Neutrophils # Total Absolute Neuts Lymphocytes # (Manual) Prolymphocyte # Reactive Lymphs # Total Abs Lymphocytes Monocytes # (Manual) Eosinophils # (Manual) Basophils # (Manual) Metamyelocytes # (Man) Myelocytes # (Manual) Promyelocytes # (Man) Blast Cells # (Man) Plasma Cell # (Manual) Other Cells # Nucleated RBCs # (Man) Hypersegmented Neuts Hyposegmented Neuts Hypogranular Neuts Large Granular Lymphs # Lrg Granular Lymphs Hairy Cells Smudge Cells Toxic Granulation Toxic Vacuolation Dohle Bodies Jarad Rods Hypogranular Platelets Clumped Platelets Giant Platelets Platelet Satelliting RBC Morphology Polychromasia Hypochromasia Poikilocytosis Basophilic Stippling Anisocytosis Microcytosis Macrocytosis Spherocytes Pappenheimer Bodies Sickle Cells Target Cells Tear Drop Cells Ovalocytes Stomatocytes [place] Bodies Echinocytes Acanthocytes (Spur) Rouleaux RBC Agglutinates Schistocytes RBC Morph Comment Sezary Cell Sodium 141 (136-145) mmol/L Potassium 3.8 (3.5-5.1) mmol/L Chloride 113 H (98-107) mmol/L Carbon Dioxide 22 (21-32) mmol/L Anion Gap 6.0 (3-11) BUN 16 (7-18) mg/dl Creatinine 0.80 (0.6-1.2) mg/dl Est Cr Clr Drug Dosing 60.2 ml/min Est GFR ( Amer) 89.7 Est GFR (Non-Af Amer) 77.4 BUN/Creatinine Ratio 20.2 H (10-20) Glucose 134 H (70-99) mg/dl POC Glucose (70-99) mg/dl Lactate 1.2 (0.4-2.0) mmol/L Calcium 7.9 L (8.5-10.1) mg/dl Phosphorus 2.6 (2.5-4.9) mg/dl Magnesium 2.0 (1.8-2.4) mg/dl Total Bilirubin 3.8 H (0.2-1) mg/dl Direct Bilirubin 1.8 H (0-0.2) mg/dl AST 81 H (15-37) U/L ALT 132 H (12-78) U/L Alkaline Phosphatase 219 H (45-117) U/L Troponin I 0.039 (0-0.045) ng/ml Total Protein 5.0 L (6.4-8.2) gm/dl Albumin 2.1 L (3.4-5.0) gm/dl Globulin 2.9 (2.5-4.0) gm/dl Albumin/Globulin Ratio 0.7 L (0.9-2) Procalcitonin (0-0.5) ng/ml TSH (0.300-4.500) uIu/ml Random Cortisol 13.75 mcg/dl Stool Occult Bld Scrn (Negative) Stool Comments Vancomycin Trough (See Comment) mcg/ml Blood Type Antibody Screen Crossmatch 09/02/20 09/01/20 Range/Units 08:42 17:20 WBC (4.8-10.8) K/uL RBC (4.2-5.4) M/uL Hgb (12.0-16.0) g/dL Hct (37-47) % MCV (80-100) fL MCH (25-34) pg MCHC (32-36) g/dL RDW Std Deviation (36.4-46.3) fL RDW Coeff of Rajesh (11.5-14.5) % Plt Count (130-400) K/uL MPV (7.4-10.4) fL Immature Gran % (Auto) Neut % (Auto) Lymph % (Auto) [place] % (Auto) Eos % (Auto) Baso % (Auto) Neut # (Auto) Lymph # (Auto) [place] # (Auto) Eos # (Auto) Baso # (Auto) Immature Gran # (Auto) Neutrophils % (Manual) Band Neutrophils % Lymphocytes % (Manual) Prolymphocyte % Reactive Lymphs % (Man) Monocytes % (Manual) Eosinophils % (Manual) Basophils % (Manual) Metamyelocytes % (Man) Myelocytes % (Man) Promyelocytes % (Man) Blast Cells % (Manual) Plasma Cell % (Manual) Other Cells % Nucleated RBC % Neutrophils # (Manual) Band Neutrophils # Total Absolute Neuts Lymphocytes # (Manual) Prolymphocyte # Reactive Lymphs # Total Abs Lymphocytes Monocytes # (Manual) Eosinophils # (Manual) Basophils # (Manual) Metamyelocytes # (Man) Myelocytes # (Manual) Promyelocytes # (Man) Blast Cells # (Man) Plasma Cell # (Manual) Other Cells # Nucleated RBCs # (Man) Hypersegmented Neuts Hyposegmented Neuts Hypogranular Neuts Large Granular Lymphs # Lrg Granular Lymphs Hairy Cells Smudge Cells Toxic Granulation Toxic Vacuolation Dohle Bodies Jarad Rods Hypogranular Platelets Clumped Platelets Giant Platelets Platelet Satelliting RBC Morphology Polychromasia Hypochromasia Poikilocytosis Basophilic Stippling Anisocytosis Microcytosis Macrocytosis Spherocytes Pappenheimer Bodies Sickle Cells Target Cells Tear Drop Cells Ovalocytes Stomatocytes [place] Bodies Echinocytes Acanthocytes (Spur) Rouleaux RBC Agglutinates Schistocytes RBC Morph Comment Sezary Cell Sodium 140 (136-145) mmol/L Potassium 3.8 (3.5-5.1) mmol/L Chloride 114 H (98-107) mmol/L Carbon Dioxide 22 (21-32) mmol/L Anion Gap 5.0 (3-11) BUN 16 (7-18) mg/dl Creatinine 0.84 (0.6-1.2) mg/dl Est Cr Clr Drug Dosing 57.3 ml/min Est GFR ( Amer) 84.5 Est GFR (Non-Af Amer) 72.9 BUN/Creatinine Ratio 19.6 (10-20) Glucose 137 H (70-99) mg/dl POC Glucose (70-99) mg/dl Lactate (0.4-2.0) mmol/L Calcium 8.2 L (8.5-10.1) mg/dl Phosphorus (2.5-4.9) mg/dl Magnesium 2.0 (1.8-2.4) mg/dl Total Bilirubin 3.7 H D (0.2-1) mg/dl Direct Bilirubin (0-0.2) mg/dl AST 82 H (15-37) U/L ALT 132 H (12-78) U/L Alkaline Phosphatase 218 H (45-117) U/L Troponin I (0-0.045) ng/ml Total Protein 4.9 L (6.4-8.2) gm/dl Albumin 2.1 L (3.4-5.0) gm/dl Globulin 2.7 (2.5-4.0) gm/dl Albumin/Globulin Ratio 0.8 L (0.9-2) Procalcitonin (0-0.5) ng/ml TSH (0.300-4.500) uIu/ml Random Cortisol mcg/dl Stool Occult Bld Scrn (Negative) Stool Comments Vancomycin Trough (See Comment) mcg/ml Blood Type AB Positive Antibody Screen NEGATIVE Crossmatch See Detail
--- NOTE | 2020-09-03 08:59 | Critical Care Progress Note ---
Date of Service September 03, 2020 Assessment & Plan (1) Hypovolemic shock: Patient is currently on broad-spectrum antibiotics for neutropenic colitis. Gastroenterology is on board. Anemia stable. She has been requiring low doses of Levophed which we have pause this morning. Continue cefepime and Flagyl. Vancomycin has been discontinued as her MRSA screen was negative. Stool ova and parasites pending. C. difficile was negative. Replace electrolytes per the ICU protocol. Continue IV fluid hydration for hypovolemic shock. I am starting her on midodrine 5 mg 3 times daily to help with her hypotension. Her sinus bradycardia has improved somewhat. Echocardiogram demonstrated a port within the right atrium. EF was normal. She continues to have pancytopenia likely related to the effect of chemotherapy. CRITICAL CARE TIME - I have personally spent 31 minutes of critical care time in the direct management of this patient. This is a life/limb threatening event. This includes time spent evaluating patient, direct bedside care, chart review, placing orders, interpretation of diagnostic studies, discussion with consultants, patient, and family members, as well as other required patient management activities. This time is exclusive of all separately billable procedures, and teaching time and separate from and in addition to any other critical care service time. (2) Neutropenia: (3) Enterocolitis: (4) Sinus bradycardia: (5) Carcinoma of head of pancreas: (6) Total bilirubin, elevated: Admission and Anticipated Discharge Date Admission Date: September 01, 2020 Subjective Patient is feeling well this morning. Denies any abdominal pain. Diarrhea has improved. No chest pain this morning. Appetite is poor. Appetite is poor. Review of systems is otherwise negative. Review of Systems Review of Systems: All systems reviewed & are unremarkable except as noted in HPI & below Physical Exam Physical Exam: VITAL SIGNS - Vital signs and nursing notes were reviewed. GENERAL - 65-year-old female appearing her stated age who is in no acute distress. Communicates well with provider and answers questions appropriately. SKIN - Without rashes. HEAD - NC/AT. EYES - PERRL with EOMI bilaterally. Sclera anicteric. Palpebral conjunctiva pink and moist with no injection noted. EARS - No deformities of external structures noted on gross examination bilaterally. NOSE - Midline and without cyanosis. No epistaxis or purulent drainage noted. MOUTH/OROPHARYNX - Without perioral cyanosis. Buccal mucosa pink and moist and without leukoplakia. NECK - Neck with FROM. Supple to palpation. No nuchal rigidity. LUNGS - Chest wall symmetric without accessory muscle use, intercostals retractions, or central cyanosis. Normal vesicular breath sounds CTA B/L. No wheezes, rales, or rhonchi appreciated. CARDIAC - RRR with S1/S2. No murmur, rubs, or gallops appreciated. ABDOMEN - Abdominal contour flat without pulsations or visible masses. BS normoactive all four quadrants. No tenderness, palpable masses, hepato splenomegaly, or ascites noted. EXTREMITIES - No clubbing or peripheral cyanosis. No pretibial edema present. +3/5 radial, posterior tibial, and dorsalis pedis pulses palpated throughout. Full strength in the RIGHT upper and lower extremities. 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 NEUROLOGIC - Cranial nerves II through XII grossly intact. Sensory intact to light touch throughout. PSYCH - A&Ox3 and cooperates fully with examiner. Pt is very pleasant and interacts well with examiner. Results & Data Results & Data ([facility]) Vital Signs (Past 12 Hours) Vital Signs Temp Pulse Resp BP Pulse Ox 09/03/20 06:00 99.3 F 59 L 13 95 09/03/20 05:44 99.1 F 66 23 98/55 L 96 09/03/20 05:00 99.1 F 62 17 97 09/03/20 04:44 99.1 F 63 20 100/60 96 09/03/20 04:00 99.0 F 57 L 0 L 96 09/03/20 03:44 99.0 F 64 16 94/53 L 96 09/03/20 03:00 98.8 F 58 L 0 L 95 09/03/20 02:44 98.8 F 60 16 90/53 L 97 09/03/20 02:00 98.6 F 62 14 95 09/03/20 01:44 98.6 F 65 16 93/51 L 95 09/03/20 01:00 98.2 F 63 16 97 09/03/20 00:44 98.6 F 61 15 86/55 L 96 09/03/20 00:00 98.2 F 61 17 96 09/02/20 22:00 98.1 F 60 0 L 88/47 L 94 09/02/20 21:00 98.2 F 57 L 18 92/51 L 95 I reviewed the vital signs, labs and imaging Coding Level of Care Code Critical Care 1st 30-74 mins Diagnoses Hypovolemic shock R57.1 Neutropenia D70.9 Neutropenia type: unspecified Enterocolitis K52.9 Sinus bradycardia R00.1 Carcinoma of head of pancreas C25.0 Total bilirubin, elevated R17 Time Spent (min) 31 (1) Neutropenia Neutropenia type: unspecified Qualified Code(s): D70.9 - Neutropenia, unspecified
[2020-09-03] MEDS: CEFEPIME 2,000 MG in SYRINGE 0 ML IV SCH ×2 (09:07)
[2020-09-03] MEDS: POTASSIUM PHOSPHATE 30 MMOL in SODIUM CHLORIDE 0.9% 500 ML IV ONE ×2 (09:07→09:12)
[2020-09-03] MEDS: metroNIDAZOLE 500 MG/100 ML BAG IV SCH ×3 (09:09→16:04)
[2020-09-03] MEDS: NORMOSOL-R 1,000 ML IV SCH (09:10)
[2020-09-03] MEDS: PANTOprazole 40 MG TAB PO SCH (09:13)
[2020-09-03] MEDS: MIDODRINE HCL 2.5 MG TAB PO SCH ×2 (09:14→16:04)
[2020-09-03] MEDS ORDERED: PANCREAZE (LIPASE 10,500U) CAP PO PRN (11:54)
--- NOTE | 2020-09-03 12:28 | Hospitalist Progress Note ---
Date of Service September 03, 2020 Assessment & Plan (1) Severe sepsis: (2) Neutropenic fever: (3) Lactic acidosis: - Generalized weakness/febrile at home - Septic shock - Acute blood loss anemia - Neutropenic fever - Thrombocytopenia - Possible pancreatitis/enterocolotis - Lactic acidosis -resolved 1.2 - Elevated LFTs - Epistaxis - resolved now - COVID-19 ruled out - Severe malnutrition H/O CVA with left hemiparesis H/O DVT on Eliquis - on hold for now Patient reports feeling much better today. She is off the pressors. Started on midodrine by ICU team maintaining blood pressure. Good urine output. Will remove Hines catheter today. Currently on room air. Blood cultures negative thus far. Urine cultures growing gram-negative rods. Continue with cefepime and Flagyl. Vancomycin was discontinued. C/W mIVF. C. difficile gene is positive, toxin negative. Patient with chronic diarrhea and continues to have soft. Gastroenterology was consulted given enterocolitis/bright red blood per rectum. Abdominal exam remains benign. CT abdomen/pelvis noted to have enterocolitis likely from neutropenia. Stool culture/ova/parasites pending. Started patient on clear liquid diet. Discussed with Dr. Torres -her oncologist on admission. Encourage spirometry - atelectasis on CT. (4) Elevated LFTs: ALT 150-132, AST 87-81-36, total bilirubin 2.1, alk phos [phone] Likely secondary to sepsis; improvig. Patient does have biliary stent in place given history of pancreatic cancer. Will continue to monitor LFTs. (5) Acute blood loss anemia: Hemoglobin of 6.4 on admission. Patient was ordered 1 unit of PRBC on 09/02. Today Hgb at 8.5. No further episodes of bleeding per rectum. (6) Carcinoma of head of pancreas: H/O adenocarcinoma of the head of the pancreas. EUS with staging at [facility] - 06/2019 Completion of radiation/chemotherapy - 03/2020 S/P Whipple procedure at [facility] 04/2020 Adjuvant chemotherapy was started last week. S/P neulasta on 08/27, 5 FU 08/26/[address] Ortiz Torres (7) Thrombocytopenia: HO hereditary hemorrhegic telangectasia H/O GI Bleeding Platelet of 18.6 on admission, this morning at 18. Transfuse for less than 10K or any signs of bleeding. 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 Torres (oncology) was updated on 09/02. Follow up: PCP Dr. Michelle Torres upon discharge Admission and Anticipated Discharge Date Admission Date: September 01, 2020 Subjective .Patient reports that she is feeling better. She is off the pressors. Currently on room air. Denies any chest pain, shortness of breath, abdominal pain or dysuria. Continues to have persistent diarrhea that is chronic. Denies any nausea or vomiting. Review of Systems Review of Systems: All systems reviewed & are unremarkable except as noted in HPI & below Physical Exam Physical Exam: General: A&Ox3 HENT: NCAT, MMM, EOMI Eyes: PERRLA Neck: Supple, normal range of motion CVS: normal rate and rhythm Resp: b/l good breath sounds, right sided central line in place absence of any erythema or active discharge Abdomen: Soft, nondistended and nontender Extremities: Absence of any edema Neuro: face symmetric, left-sided weakness noted from prior Skin: warm and dry, no rashes/lesions/errythema MSK: normal ROM, no joint swelling/erythema Results & Data Results & Data ([facility]) Vital Signs (Past 12 Hours) Vital Signs Temp Pulse Resp BP Pulse Ox 09/03/20 11:14 59 L 09/03/20 10:44 64 14 91/52 L 97 09/03/20 09:44 37.4 C 72 19 92/54 L 96 09/03/20 08:44 37.5 C 66 16 100/54 L 95 09/03/20 07:44 37.7 C H 59 L 14 96/55 L 96 09/03/20 06:00 37.4 C 59 L 13 95 09/03/20 05:44 37.3 C 66 23 98/55 L 96 09/03/20 05:00 37.3 C 62 17 97 09/03/20 04:44 37.3 C 63 20 100/60 96 09/03/20 04:00 37.2 C 57 L 0 L 96 09/03/20 03:44 37.2 C 64 16 94/53 L 96 09/03/20 03:00 37.1 C 58 L 0 L 95 09/03/20 02:44 37.1 C 60 16 90/53 L 97 09/03/20 02:00 37.0 C 62 14 95 09/03/20 01:44 37.0 C 65 16 93/51 L 95 09/03/20 01:00 36.8 C 63 16 97 09/03/20 00:44 37.0 C 61 15 86/55 L 96
--- NOTE | 2020-09-03 12:35 | Cardiology Progress Note ---
Date of Service September 03, 2020 Assessment & Plan (1) Sinus bradycardia: Asymptomatic sinus bradycardia, now sinus rhythm in the 60s. Echo cardiogram performed yesterday revealed normal biventricular no pericardial effusion. Patient is comfortable, she is off of IV pressor medications. We will continue to observe. Cardiology to sign off. Dr Tijerina assuming rounding on 09/04, please contact if questions or concerns arise. Admission and Anticipated Discharge Date Admission Date: September 01, 2020 Subjective Patient seen in follow-up of sinus bradycardia. Norepinephrine was titrated off several hours prior to my assessment. During my interview with the patient, sinus rhythm in the 60s was noted on telemetry, no additional significant bradycardia yesterday. Blood pressures have recently been in the 120s by arterial line. Review of Systems Review of Systems: All systems reviewed & are unremarkable except as noted in HPI & below Physical Exam Physical Exam: Temp Pulse Resp BP Pulse Ox 37.4 C 59 L 14 91/52 L 97 09/03/20 09:44 09/03/20 11:14 09/03/20 10:44 09/03/20 10:44 09/03/20 10:44 Results & Data ([facility]) Vital Signs (Past 12 Hours) Vital Signs Temp Pulse Resp BP Pulse Ox 09/03/20 11:14 59 L 09/03/20 10:44 64 14 91/52 L 97 09/03/20 09:44 37.4 C 72 19 92/54 L 96 09/03/20 08:44 37.5 C 66 16 100/54 L 95 09/03/20 07:44 37.7 C H 59 L 14 96/55 L 96 09/03/20 06:00 37.4 C 59 L 13 95 09/03/20 05:44 37.3 C 66 23 98/55 L 96 09/03/20 05:00 37.3 C 62 17 97 09/03/20 04:44 37.3 C 63 20 100/60 96 09/03/20 04:00 37.2 C 57 L 0 L 96 09/03/20 03:44 37.2 C 64 16 94/53 L 96 09/03/20 03:00 37.1 C 58 L 0 L 95 09/03/20 02:44 37.1 C 60 16 90/53 L 97 09/03/20 02:00 37.0 C 62 14 95 09/03/20 01:44 37.0 C 65 16 93/51 L 95 09/03/20 01:00 36.8 C 63 16 97 09/03/20 00:44 37.0 C 61 15 86/55 L 96 Laboratory Results Cardiac Enzymes 09/02/20 09/03/20 Range/Units 16:14 05:09 AST 36 (15-37) U/L Troponin I 0.029 (0-0.045) ng/ml CBC 09/02/20 09/02/20 09/03/20 Range/Units 16:14 21:43 05:09 WBC 0.17 L* 0.24 L* 0.20 L* (4.8-10.8) K/uL RBC 2.87 L 2.69 L 2.73 L (4.2-5.4) M/uL Hgb 9.0 L 8.5 L 8.5 L (12.0-16.0) g/dL Hct 25.3 L 23.7 L 24.0 L (37-47) % Plt Count 26 L* D 23 L* 18 L* (130-400) K/uL Neut # (Auto) Cancelled Cancelled Cancelled Lymph # (Auto) Cancelled Cancelled Cancelled [place] # (Auto) Cancelled Cancelled Cancelled Eos # (Auto) Cancelled Cancelled Cancelled Baso # (Auto) Cancelled Cancelled Cancelled Comprehensive Metabolic Panel 09/02/20 09/03/20 Range/Units 16:14 05:09 Sodium 143 143 (136-145) mmol/L Potassium 3.5 3.3 L (3.5-5.1) mmol/L Chloride 115 H 116 H (98-107) mmol/L Carbon Dioxide 25 21 (21-32) mmol/L BUN 17 16 (7-18) mg/dl Creatinine 0.75 0.63 (0.6-1.2) mg/dl Glucose 109 H 78 (70-99) mg/dl Calcium 7.8 L 7.3 L (8.5-10.1) mg/dl AST 36 (15-37) U/L ALT 89 H (12-78) U/L Alkaline Phosphatase 185 H (45-117) U/L Total Protein 4.3 L (6.4-8.2) gm/dl Albumin 1.8 L (3.4-5.0) gm/dl Intake and Output 09/02/20 09/03/20 09/03/20 22:59 06:59 14:59 Intake Total 1962.287 / 3394.280 627.693 / 3394.280 1475.967 / 1475.967 Output Total 604 / 1530 526 / 1530 402 / 402 Balance 1358.287 / 1864.280 101.693 / 1594.011 3695.967 / 1073.967 Intake: IV 1962.287 / 2964.280 627.693 / 2964.280 1425.967 / 1425.967 LEVOPHED/D5W 8 mg In 508 ml @ 0 97.287 / 134.280 27.693 / 134.280 60.967 / 60.967 .02 MCG/KG/MIN 4.145 mls/hr IV .Q24H COLT Rx#:[id number] Normosol-R 1,000 ml @ 100 mls/ 1500.000 / 2000.000 500 / 2000.000 1000 / 1000 hr IV .Q10H COLT Rx#:[id number] Vancomycin HCl 750 mg In Nss 265 / 530 265 / 265 250 ml @ 200 mls/hr IV Q12H COLT Rx#:[id number] FLAGYL 500 mg In 100 ml @ 100 100 / 300 100 / 300 100 / 100 mls/hr IV Q8H COLT Rx#:[id number] Oral 50 / 50 Output: Urine Amount (Catheter) 600 / 1525 525 / 1525 400 / 400 Hines/Indwelling 600 / 1525 525 / 1525 400 / 400 # Bowel Movements 4 / 5 1 / 5 2 / 2 Other: Other Intake Source sips Weight 61 kg
[2020-09-03] MEDS: PANCREAZE (LIPASE 10,500U) CAP PO SCH ×2 (13:05→16:04)
[2020-09-03] MEDS: cefTRIAXone SODIUM 2,000 MG in DEXTROSE 5% 50 ML IV SCH (15:29)
[2020-09-04] MEDS: metroNIDAZOLE 500 MG/100 ML BAG IV SCH ×2 (01:28→08:33)
[2020-09-04 08:31] LABS: Hematocrit (blood only) 24.8 % (37-47); Hemoglobin 8.8 g/dL (12.0-16.0); Mean Corpuscular Hemoglobin 31.2 pg (25-34); Mean Corpuscular Hgb Conc 35.5 g/dL (32-36); Mean Corpuscular Volume 87.9 fL (80-100); Mean Platelet Volume 11.2 fL (7.4-10.4); Platelet Count 15 K/uL (130-400); RDW Coefficient of Variation 15.9 % (11.5-14.5); RDW Standard Deviation 51.9 fL (36.4-46.3); Red Blood Count 2.82 M/uL (4.2-5.4); White Blood Count 0.35 K/uL (4.8-10.8)
[2020-09-04] MEDS: PANCREAZE (LIPASE 10,500U) CAP PO SCH ×3 (08:32→16:48)
[2020-09-04] MEDS: cefTRIAXone SODIUM 2,000 MG in DEXTROSE 5% 50 ML IV SCH (08:33)
[2020-09-04] MEDS: PANTOprazole 40 MG TAB PO SCH (08:33)
[2020-09-04] MEDS: MIDODRINE HCL 2.5 MG TAB PO SCH ×3 (08:33→16:49)
[2020-09-04 09:00] LABS: Albumin Globulin Ratio 0.7 (0.9-2); Albumin Level 1.9 gm/dl (3.4-5.0); BUN Creatinine Ratio 14.6 (10-20); Bilirubin,Total 1.3 mg/dl (0.2-1); Calcium 7.8 mg/dl (8.5-10.1); Creatinine Clr Calc Pharmacy 78.3 ml/min; Est GFR (African American) 105.9; Est GFR (Non-African American) 91.4; Globulin 2.6 gm/dl (2.5-4.0); Magnesium 1.8 mg/dl (1.8-2.4); Phosphorus 1.7 mg/dl (2.5-4.9); Total Protein 4.5 gm/dl (6.4-8.2)
[2020-09-04] MEDS ORDERED: POTASSIUM CHLORIDE CRTAB 20 MEQ TABCR PO ONE (10:15)
[2020-09-04] MEDS ORDERED: POT PHOSPHATE MONOBASIC W/ SOD TAB PO ONE (10:15)
--- NOTE | 2020-09-04 10:44 | Hospitalist Progress Note ---
Date of Service September 04, 2020 Assessment & Plan (1) Severe sepsis: (2) Neutropenic fever: (3) Lactic acidosis: - Generalized weakness/febrile at home - Septic shock - UTI - E Coli - C. Diff gene +/toxin negative - Acute blood loss anemia - stable - Neutropenic fever - Thrombocytopenia - stable - Possible pancreatitis/enterocolotis - Lactic acidosis -resolved 1.2 - Elevated LFTs - Epistaxis - resolved now - COVID-19 ruled out - Severe malnutrition H/O CVA with left hemiparesis H/O DVT on Eliquis - on hold for now Patient was transferred out of the ICU on 09/03. Overall reports she is feeling much better. Emo dynamically doing okay with the pressures in the high 90s. Currently on room air. Will continue with midodrine. On room air. Blood cultures negative thus far. Urine cultures with E. coli. Appreciate infectious disease input. Continue with ceftriaxone/oral vancomycin. Flagyl is discontinued today. C. difficile gene is positive, toxin negative. Patient with chronic diarrhea and continues to have soft stools. Gastroenterology was consulted given enterocolitis/bright red blood per rectum. Abdominal exam remains benign. CT abdomen/pelvis noted to have enterocolitis likely from neutropenia. Will obtain daily KUB. Stool culture/ova/parasites negative thus far. We will advance to full liquid diet today. Discussed with Dr. Torres -her oncologist on admission. Encourage spirometry - atelectasis on CT. (4) Elevated LFTs: ALT 150-132-67, AST 87-81-36-24, total bilirubin 2.1-1.3, alk phos [phone] Likely secondary to sepsis; improvig. Patient does have biliary stent in place given history of pancreatic cancer. Will continue to monitor LFTs. (5) Acute blood loss anemia: Hemoglobin of 6.4 on admission. Patient was ordered 1 unit of PRBC on 09/02. Today Hgb at 8.8. No further episodes of bleeding per rectum. (6) Carcinoma of head of pancreas: H/O adenocarcinoma of the head of the pancreas. EUS with staging at [facility] - 06/2019 Completion of radiation/chemotherapy - 03/2020 S/P Whipple procedure at [facility] 04/2020 Adjuvant chemotherapy was started last week. S/P neulasta on 1/22, 5 FU 08/26/[address] Ortiz Torres (7) Thrombocytopenia: HO hereditary hemorrhegic telangectasia H/O GI Bleeding Platelet of 18.6 on admission, this morning at 15. Transfuse for less than 10K or any signs of bleeding. Will try to touch base with Dr. Torres today for his input. 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 Torres (oncology) was updated on 09/02. Follow up: PCP Dr. Michelle Torres upon discharge Admission and Anticipated Discharge Date Admission Date: September 01, 2020 Subjective Patient states she is feeling better today. Wants to advance her diet. Diarrhea at baseline. Denies any episodes of nausea or vomiting. Denies any chest pain, shortness of breath, cough or any abdominal pain. Denies any dysuria or increased urinary frequency. Review of Systems Review of Systems: All systems reviewed & are unremarkable except as noted in HPI & below Physical Exam Physical Exam: General: A&Ox3 HENT: NCAT, MMM, EOMI Eyes: PERRLA Neck: Supple, normal range of motion CVS: normal rate and rhythm Resp: b/l good breath sounds, right sided central line in place absence of any erythema or active discharge Abdomen: Soft, nondistended and nontender Extremities: Absence of any edema Neuro: face symmetric, left-sided weakness noted from prior Skin: warm and dry, no rashes/lesions/errythema MSK: normal ROM, no joint swelling/erythema Results & Data Results & Data ([facility]) Vital Signs (Past 12 Hours) Vital Signs Temp Pulse Pulse Resp BP Pulse Ox 09/04/20 07:26 77 09/04/20 07:24 36.8 C 84 20 100/62 96 09/04/20 03:30 36.9 C 73 18 91/47 L 94 09/04/20 00:41 68 09/03/20 23:16 36.7 C 69 20 95/57 L 96
[2020-09-04] MEDS: RASPBERRY SYRUP 5 ML UDP PO SCH ×2 (10:47→16:49)
[2020-09-04] MEDS: MAGNESIUM OXIDE 400 MG TAB PO SCH (10:47)
[2020-09-04] MEDS: VANCOMYCIN HCL 250 MG/5 ML SOLN PO SCH ×2 (10:47→16:49)
--- NOTE | 2020-09-04 12:09 | XRay Report ---
XR KUB/Abdomen 1 view CLINICAL HISTORY: Abdominal distention COMPARISON STUDY: 10/10/2019 FINDINGS: There are multiple surgical clips within the upper abdomen. 3 cannulated screws are visuali zed in the right hip. There is gas present within nondilated large and small bowel loops. There are n o transition zones indicate bowel obstruction. There are no calcifications suspicious for urinary tra ct calculi. IMPRESSION: Nonobstructive bowel gas pattern ACT 112: Negative or not required by law. Electronically signed by: Juan Saenz M.D. 09/04/2020 12:08 PM
[2020-09-05] MEDS: VANCOMYCIN HCL 250 MG/5 ML SOLN PO SCH ×5 (00:08→23:17)
[2020-09-05] MEDS: RASPBERRY SYRUP 5 ML UDP PO SCH ×5 (00:08→23:17)
[2020-09-05] MEDS: HEPARIN 100 UNIT/ML 5ML FLUSH FLUSH PRN (06:00)
[2020-09-05 06:43] LABS: Hematocrit (blood only) 26.2 % (37-47); Hemoglobin 9.1 g/dL (12.0-16.0); Mean Corpuscular Hemoglobin 31.1 pg (25-34); Mean Corpuscular Hgb Conc 34.7 g/dL (32-36); Mean Corpuscular Volume 89.4 fL (80-100); Mean Platelet Volume 10.7 fL (7.4-10.4); Platelet Count 13 K/uL (130-400); RDW Coefficient of Variation 16.2 % (11.5-14.5); RDW Standard Deviation 52.8 fL (36.4-46.3); Red Blood Count 2.93 M/uL (4.2-5.4); White Blood Count 0.78 K/uL (4.8-10.8)
[2020-09-05 06:54] LABS: Dohle Bodies 1+; Toxic Granulation 1+
[2020-09-05 06:55] LABS: ANC (manual) 0.47 K/uL (1.4-6.5); Basophils # (manual) 0.01 K/uL (0-0.2); Basophils % (manual) 1.6 %; Eosinophils # (manual) 0.02 K/uL (0-0.5); Eosinophils % (manual) 2.3 %; Lymphocytes % (manual) 25.8 %; Monocytes # (manual) 0.07 K/uL (0.11-0.59); Monocytes % (manual) 9.4 %; Myelocytes # (manual) 0.01 K/uL (0-0); Myelocytes % (manual) 0.8 %; Neutrophils # (manual) 0.47 K/uL (1.4-6.5); Neutrophils % (manual) 60.1 %
[2020-09-05 07:35] LABS: Albumin Level 2.1 gm/dl (3.4-5.0); BUN Creatinine Ratio 8.7 (10-20); Calcium 7.7 mg/dl (8.5-10.1); Est GFR (African American) 96.9; Est GFR (Non-African American) 83.6; Potassium 2.8 mmol/L (3.5-5.1)
[2020-09-05 07:38] LABS: Albumin Globulin Ratio 0.8 (0.9-2); Globulin 2.6 gm/dl (2.5-4.0); Phosphorus 1.6 mg/dl (2.5-4.9); Total Protein 4.7 gm/dl (6.4-8.2)
[2020-09-05] MEDS: PANCREAZE (LIPASE 10,500U) CAP PO SCH ×3 (08:05→16:51)
[2020-09-05] MEDS: cefTRIAXone SODIUM 2,000 MG in DEXTROSE 5% 50 ML IV SCH (08:05)
[2020-09-05] MEDS: MIDODRINE HCL 2.5 MG TAB PO SCH ×3 (08:05→16:51)
[2020-09-05] MEDS: MAGNESIUM OXIDE 400 MG TAB PO SCH (08:05)
[2020-09-05] MEDS: PANTOprazole 40 MG TAB PO SCH (08:05)
--- NOTE | 2020-09-05 09:34 | XRay Report ---
KUB CLINICAL HISTORY: Abdominal pain. ileus? COMPARISON STUDY: CT of the abdomen and pelvis 04/01/2011. KUB September 04, 2020. FINDINGS: Surgical clips and staple lines within the upper abdomen are noted. Right femoral cannulate d screws are partially imaged. Gas within the colon and rectum has decreased since prior examination. There is no evidence for a bowel obstruction by radiography. IMPRESSION: No evidence for a bowel obstruction. No radiographic evidence for bowel dilatation. ACT 112: Negative or not required by law. Electronically signed by: Crow Carroll M.D. 09/05/2020 9:33 AM
--- NOTE | 2020-09-05 10:23 | Ultrasound Report ---
BILATERAL LOWER EXTREMITY VENOUS DOPPLER CLINICAL HISTORY: LLE swelling COMPARISON STUDY: Bilateral lower extremity venous Doppler ultrasound January 06, 2020. TECHNIQUE: Sonography of the deep venous system of the bilateral lower extremities was performed. Co mpression and augmentation were evaluated. FINDINGS: The right common femoral, superficial femoral and popliteal veins were compressible. Augme ntation was normal. Flow was shown within the deep calf vessels. Note is made of nonocclusive deep ve nous thrombus within the left common femoral and popliteal veins. Extensive deep venous thrombus was noted within the left lower extremity on ultrasound January 06, 2020. The thrombus on this exam is likely chronic. IMPRESSION: 1. Nonocclusive deep venous thrombus within the left common femoral and popliteal veins. Although age indeterminate, this is likely chronic. Thrombus significantly decreased since exam of January 06, 2020. 2. No deep venous thrombus within the right lower extremity. ACT 112: Negative or not required by law. Electronically signed by: Crow Carroll M.D. 09/05/2020 10:22 AM
--- NOTE | 2020-09-05 11:00 | Hospitalist Progress Note ---
Date of Service September 05, 2020 Assessment & Plan (1) Severe sepsis: (2) Neutropenic fever: (3) Lactic acidosis: - Generalized weakness/febrile at home - Septic shock - UTI - E Coli - C. Diff gene +/toxin negative - Acute blood loss anemia - stable - Neutropenic fever - Thrombocytopenia - stable - Possible pancreatitis/enterocolotis - Lactic acidosis -resolved 1.2 - Elevated LFTs - Epistaxis - resolved now - COVID-19 ruled out - Severe malnutrition H/O CVA with left hemiparesis H/O DVT on Eliquis - on hold for now Patient was transferred out of the ICU on 09/03. Overall reports she is feeling much better. Hemodynamically doing okay with the pressures in the high 90s. Currently on room air. Will continue with midodrine. Blood cultures negative thus far. Urine cultures with E. coli. Appreciate infectious disease input. Continue with ceftriaxone/oral vancomycin. C. difficile gene is positive, toxin negative. Patient with chronic diarrhea and continues to have soft stools. Gastroenterology was consulted given enterocolitis/bright red blood per rectum. Abdominal exam remains benign. CT abdomen/pelvis noted to have enterocolitis likely from neutropenia. Will obtain daily KUB. Stool culture/ova/parasites negative thus far. KUB today without any concerning findings. Will advance to low fat diet today. Discussed with Dr. Torres -her oncologist on admission. Encourage spirometry - atelectasis on CT. (4) Elevated LFTs: ALT [id number], AST 01-47-89-24-19, total bilirubin 2.1-1.3, alk phos [phone] Likely secondary to sepsis; improvig. Patient does have biliary stent in place given history of pancreatic cancer. Will continue to monitor LFTs. (5) Acute blood loss anemia: Hemoglobin of 6.4 on admission. Patient was ordered 1 unit of PRBC on 09/02. Today Hgb at 8.1. No further episodes of bleeding per rectum. (6) Carcinoma of head of pancreas: H/O adenocarcinoma of the head of the pancreas. EUS with staging at [facility] - 06/2019 Completion of radiation/chemotherapy - 03/2020 S/P Whipple procedure at [facility] 04/2020 Adjuvant chemotherapy was started last week. S/P neulasta on 08/27, 5 FU 08/26/[address] Ortiz Torres (7) Thrombocytopenia: HO hereditary hemorrhegic telangectasia H/O GI Bleeding Platelet of 18.6 on admission, this morning at 13. Continues to trend downward. Transfuse for less than 10K or any signs of bleeding. Will try to touch base with Dr. Torres today for his input. Hypokalemia/hypophosphorus -repleted Lower extremity swelling Patient was concern for lower extremity swelling. Her left lower extremities is swollen to baseline. She does have history of left lower extremity DVT. Lower extremity plaques was obtained which was positive for chronic DVT. Has been on hold given thrombocytopenia. TEDs/SCDs have been ordered. 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 Torres (oncology) was updated on 09/02. Follow up: PCP Dr. Michelle Torres upon discharge Admission and Anticipated Discharge Date Admission Date: September 01, 2020 Subjective She reports she is feeling better. Does continue to have diarrhea that is chronic. Denies any nausea or vomiting. Denies any chest pain or shortness of breath. Denies any cough or sore throat. Denies any abdominal pain, dysuria or increased urinary frequency. Is requesting to advance her diet today. Concerned about lower extremity swelling as well. Review of Systems Review of Systems: All systems reviewed & are unremarkable except as noted in HPI & below Physical Exam Physical Exam: General: A&Ox3 HENT: NCAT, MMM, EOMI Eyes: PERRLA Neck: Supple, normal range of motion CVS: normal rate and rhythm Resp: b/l good breath sounds, right sided central line in place absence of any erythema or active discharge Abdomen: Soft, nondistended and nontender Extremities: Left lower extremity swelling noted, patient reports that is her weak side. Neuro: face symmetric, left-sided weakness noted from prior Skin: warm and dry MSK: normal ROM Results & Data Results & Data ([facility]) Vital Signs (Past 12 Hours) Vital Signs Temp Pulse Pulse Resp BP Pulse Ox 09/05/20 07:41 36.6 C 73 20 91/51 L 96 09/05/20 07:21 68 09/05/20 05:01 36.9 C 77 18 90/51 L 94 09/05/20 00:32 61 09/05/20 00:00 36.7 C 76 18 97/59 L 94
[2020-09-05] MEDS ORDERED: POTASSIUM CHLORIDE CRTAB 20 MEQ TABCR PO STA (11:01)
[2020-09-05] MEDS ORDERED: POTASSIUM CHLORIDE CRTAB 20 MEQ TABCR PO ONE (13:00)
[2020-09-05] MEDS ORDERED: POT PHOSPHATE MONOBASIC W/ SOD TAB PO ONE (15:21)
[2020-09-06] MEDS: VANCOMYCIN HCL 250 MG/5 ML SOLN PO SCH ×4 (05:06→23:26)
[2020-09-06] MEDS: RASPBERRY SYRUP 5 ML UDP PO SCH ×4 (05:06→23:26)
[2020-09-06] MEDS: HEPARIN 100 UNIT/ML 5ML FLUSH FLUSH PRN ×2 (05:39→14:44)
[2020-09-06 06:47] LABS: Albumin Level 2.1 gm/dl (3.4-5.0); BUN Creatinine Ratio 4.8 (10-20); Calcium 7.9 mg/dl (8.5-10.1); Creatinine Clr Calc Pharmacy 67.5 ml/min; Est GFR (African American) 89.7; Est GFR (Non-African American) 77.4; Potassium 2.9 mmol/L (3.5-5.1)
[2020-09-06 06:49] LABS: Albumin Globulin Ratio 0.8 (0.9-2); Bilirubin,Total 0.8 mg/dl (0.2-1); Globulin 2.5 gm/dl (2.5-4.0); Total Protein 4.6 gm/dl (6.4-8.2)
[2020-09-06 06:57] LABS: Hematocrit (blood only) 24.8 % (37-47); Hemoglobin 8.7 g/dL (12.0-16.0); Mean Corpuscular Hemoglobin 31.5 pg (25-34); Mean Corpuscular Hgb Conc 35.1 g/dL (32-36); Mean Corpuscular Volume 89.9 fL (80-100); Platelet Count 13 K/uL (130-400); RDW Coefficient of Variation 16.3 % (11.5-14.5); RDW Standard Deviation 53.7 fL (36.4-46.3); Red Blood Count 2.76 M/uL (4.2-5.4)
[2020-09-06 07:35] LABS: Echinocytes 1+; Ovalocytes 1+; Poikilocytosis Present
[2020-09-06 07:38] LABS: ALC (manual) 0.34 K/uL (1.2-3.4); ANC (manual) 1.14 K/uL (1.4-6.5); Eosinophils # (manual) 0.02 K/uL (0-0.5); Lymphocytes # (manual) 0.34 K/uL (1.2-3.4); Metamyelocytes # (manual) 0.03 K/uL (0-0); Monocytes # (manual) 0.06 K/uL (0.11-0.59); Myelocytes # (manual) 0.02 K/uL (0-0); Neutrophils # (manual) 1.14 K/uL (1.4-6.5)
[2020-09-06] MEDS: MAGNESIUM OXIDE 400 MG TAB PO SCH (08:20)
[2020-09-06] MEDS: PANCREAZE (LIPASE 10,500U) CAP PO SCH ×3 (08:20→17:25)
[2020-09-06] MEDS: PANTOprazole 40 MG TAB PO SCH (08:20)
[2020-09-06] MEDS: MIDODRINE HCL 2.5 MG TAB PO SCH ×3 (08:20→17:26)
[2020-09-06] MEDS: cefTRIAXone SODIUM 2,000 MG in DEXTROSE 5% 50 ML IV SCH (08:21)
[2020-09-06] MEDS ORDERED: POTASSIUM CHLORIDE CRTAB 20 MEQ TABCR PO ONE (09:25)
[2020-09-06] MEDS: POTASSIUM CHLORIDE / WTR 10 MEQ/100 ML PLCT IV SCH ×3 (10:19→12:26)
--- NOTE | 2020-09-06 12:01 | Hospitalist Progress Note ---
Date of Service September 06, 2020 Assessment & Plan (1) Severe sepsis: (2) Neutropenic fever: (3) Lactic acidosis: - Generalized weakness/febrile at home - Septic shock - UTI - E Coli - C. Diff gene +/toxin negative - Acute blood loss anemia - stable - Neutropenic fever - Thrombocytopenia - stable - Possible pancreatitis/enterocolotis - Lactic acidosis -resolved 1.2 - Elevated LFTs - Epistaxis - resolved now - COVID-19 ruled out - Severe malnutrition H/O CVA with left hemiparesis H/O DVT on Eliquis - on hold for now Patient was transferred out of the ICU on 09/03. Patient reports a day by day she is starting to feel very good. No active complaints today. That is okay. Diarrhea is improving. WBC at 1.6 today. Pressures in the 90s to 100s. Remains on room air. Overall reports she is feeling much better. Hemodynamically doing okay with the pressures in the high 90s. Currently on room air. Will continue with midodrine. Blood cultures negative thus far. Urine cultures with E. coli. Appreciate infectious disease input. Continue with ceftriaxone/oral vancomycin until C. difficile gene is positive, toxin negative. Patient with chronic diarrhea and now starting to have formed stools. Gastroenterology was consulted given enterocolitis/bright red blood per rectum. Abdominal exam remains benign. CT abdomen/pelvis noted to have enterocolitis likely from neutropenia. Will obtain daily KUB. Stool culture/ova/parasites negative. KUB today without any concerning findings. Continue with low-fat diet. I spoke with Dr. Torres today and updated regarding her overall clinical course. No new recommendations. Keep until platelets start to improve. Encourage spirometry - atelectasis on CT. With PT/OT today. (4) Elevated LFTs: ALT [phone], AST [id number], total bilirubin 2.1-1.3, alk phos [phone] Likely secondary to sepsis; iresolved. Patient does have biliary stent in place given history of pancreatic cancer. Will continue to monitor LFTs. (5) Acute blood loss anemia: Hemoglobin of 6.4 on admission. Patient was ordered 1 unit of PRBC on 09/02. Today Hgb at 8.7. No further episodes of bleeding per rectum. (6) Carcinoma of head of pancreas: H/O adenocarcinoma of the head of the pancreas. EUS with staging at [facility] - 06/2019 Completion of radiation/chemotherapy - 03/2020 S/P Whipple procedure at [facility] 04/2020 Adjuvant chemotherapy was started last week. S/P neulasta on 08/27, 5 FU 08/26/[address] Ortiz Torres (7) Thrombocytopenia: HO hereditary hemorrhegic telangectasia H/O GI Bleeding Platelet of 18.6 on admission, this morning at 13. Continues to trend downward. Transfuse for less than 10K or any signs of bleeding. Hypokalemia/hypophosphorus -repleted Potassium at 2.9 today again. Not responding well to oral given her diarrhea. Will order IV and oral today. Lower extremity swelling Patient was concern for lower extremity swelling. Her left lower extremities is swollen to baseline. She does have history of left lower extremity DVT. Lower extremity plaques was obtained which was positive for chronic DVT. Has been on hold given thrombocytopenia. TEDs/SCDs have been ordered. 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 Torres (oncology) was updated on 09/02. Follow up: PCP Dr. Michelle Torres upon discharge Admission and Anticipated Discharge Date Admission Date: September 01, 2020 Subjective Patient reports that she is feeling much better today. Appetite is okay. Diarrhea is improving. Rest of the review of system is negative. Potassium at 2.9 today. Physical Exam Physical Exam: General: A&Ox3 HENT: NCAT, MMM, EOMI Eyes: PERRLA Neck: Supple, normal range of motion CVS: normal rate and rhythm Resp: b/l good breath sounds, right sided central line in place absence of any erythema or active discharge Abdomen: Soft, nondistended and nontender Extremities: Left lower extremity swelling noted, patient reports that is her weak side. Neuro: face symmetric, left-sided weakness noted from prior Skin: warm and dry MSK: normal ROM Results & Data Results & Data ([facility]) Vital Signs (Past 12 Hours) Vital Signs Temp Pulse Pulse Resp BP Pulse Ox 09/06/20 08:30 72 09/06/20 07:37 36.6 C 69 18 116/62 95 09/06/20 04:06 36.7 C 73 18 91/53 L 97
--- NOTE | 2020-09-06 13:44 | XRay Report ---
KUB CLINICAL HISTORY: ileus? COMPARISON STUDY: CT of the abdomen and pelvis September 01, 2020. KUB September 05, 2020. FINDINGS: A few prominent loops of small bowel within left lower quadrant are noted. There is no conv incing evidence for a bowel obstruction. There is no evidence for an ileus by radiography. Surgical s taple line and surgical clips within the upper abdomen are noted. 3 cannulated screws within the prox imal right femur are noted. There is mild gaseous distention of the stomach. IMPRESSION: 1. No radiographic evidence for a bowel obstruction. 2. Mild gaseous distention of the stomach. ACT 112: Negative or not required by law. Electronically signed by: Crow Carroll M.D. 09/06/2020 1:43 PM
[2020-09-07] MEDS: RASPBERRY SYRUP 5 ML UDP PO SCH ×3 (05:05→16:47)
[2020-09-07] MEDS: VANCOMYCIN HCL 250 MG/5 ML SOLN PO SCH ×3 (05:05→16:47)
[2020-09-07] MEDS: MIDODRINE HCL 2.5 MG TAB PO SCH ×3 (08:13→16:48)
[2020-09-07 08:14] LABS: BUN Creatinine Ratio 2.6 (10-20); Calcium 8.2 mg/dl (8.5-10.1); Creatinine Clr Calc Pharmacy 69.5 ml/min; Est GFR (African American) 92.5; Est GFR (Non-African American) 79.8; Magnesium 1.8 mg/dl (1.8-2.4); Potassium 3.2 mmol/L (3.5-5.1)
[2020-09-07] MEDS: PANCREAZE (LIPASE 10,500U) CAP PO SCH ×3 (08:14→16:48)
[2020-09-07] MEDS: PANTOprazole 40 MG TAB PO SCH (08:14)
[2020-09-07] MEDS: MAGNESIUM OXIDE 400 MG TAB PO SCH (08:14)
[2020-09-07 08:17] LABS: Hematocrit (blood only) 25.4 % (37-47); Hemoglobin 8.7 g/dL (12.0-16.0); Mean Corpuscular Hgb Conc 34.3 g/dL (32-36); Mean Corpuscular Volume 90.4 fL (80-100); Platelet Count 19 K/uL (130-400); RDW Coefficient of Variation 16.4 % (11.5-14.5); RDW Standard Deviation 54.3 fL (36.4-46.3); Red Blood Count 2.81 M/uL (4.2-5.4); White Blood Count 3.76 K/uL (4.8-10.8)
[2020-09-07 08:18] LABS: ALC (manual) 0.33 K/uL (1.2-3.4); ANC (manual) 2.66 K/uL (1.4-6.5); Echinocytes 1+; Eosinophils % (manual) 2.7 %; Lymphocytes # (manual) 0.33 K/uL (1.2-3.4); Lymphocytes % (manual) 8.8 %; Metamyelocytes # (manual) 0.03 K/uL (0-0); Metamyelocytes % (manual) 0.9 %; Monocytes # (manual) 0.63 K/uL (0.11-0.59); Monocytes % (manual) 16.8 %; Neutrophils # (manual) 2.66 K/uL (1.4-6.5); Neutrophils % (manual) 70.8 %; Ovalocytes 1+; Poikilocytosis Present
[2020-09-07 08:25] LABS: Phosphorus 1.5 mg/dl (2.5-4.9)
[2020-09-07] MEDS: cefTRIAXone SODIUM 2,000 MG in DEXTROSE 5% 50 ML IV SCH (08:45)
[2020-09-07] MEDS ORDERED: POTASSIUM PHOS 3 MMOL/1 ML INFUSION IV STA (09:00)
[2020-09-07] MEDS ORDERED: POTASSIUM PHOSPHATE 21 MMOL in SODIUM CHLORIDE 0.9% 500 ML IV ONE (09:30)
--- NOTE | 2020-09-07 09:52 | XRay Report ---
KUB HISTORY: Abdominal distention. Possible ileus. COMPARISON: None. FINDINGS: The bowel gas pattern is unremarkable. There are no dilated loops of small bowel to suggest an obstruction. No renal calculi. No ureteral calculi. No pneumoperitoneum or pneumatosis. Postoper ative changes seen within the upper abdomen. There are 3 cannulated screws transfixing an old, healed right femoral neck fracture. Gaseous distention of the stomach has essentially resolved. IMPRESSION: No dilated loops of bowel to suggest an obstruction or ileus. ACT 112: Negative or not required by law. Electronically signed by: Robbi Pereyra M.D. 09/07/2020 9:51 AM
[2020-09-07] MEDS: POTASSIUM CHLORIDE / WTR 10 MEQ/100 ML PLCT IV SCH (10:22)
--- NOTE | 2020-09-07 11:18 | Hospitalist Progress Note ---
Date of Service September 07, 2020 Assessment & Plan (1) Severe sepsis: (2) Neutropenic fever: (3) Lactic acidosis: - Generalized weakness/febrile at home - Septic shock - UTI - E Coli - C. Diff gene +/toxin negative - Acute blood loss anemia - stable - Neutropenic fever - Thrombocytopenia - stable - Possible pancreatitis/enterocolotis - Lactic acidosis -resolved 1.2 - Elevated LFTs - Epistaxis - resolved now - COVID-19 ruled out - Severe malnutrition H/O CVA with left hemiparesis H/O DVT on Eliquis - on hold for now Patient was transferred out of the ICU on 09/03. Patient is feeling great and has no new issues. WBC at 3.76 and absolute neutrophils at 2.66 today. Systolic blood pressure in the high 80s. She remains on room air. Continue with midodrine 5 mg 3 times daily. Give a small bolus of fluid at 250 mL. Blood cultures negative thus far. Urine cultures with E. coli. Appreciate infectious disease input. Continue with ceftriaxone until 09/08 and oral vancomycin 125 mg every 6 hours until 09/13. C. difficile gene is positive, toxin negative. Patient with chronic diarrhea and now starting to have formed stools. Gastroenterology was consulted given enterocolitis/bright red blood per rectum. Abdominal exam remains benign. CT abdomen/pelvis noted to have enterocolitis likely from neutropenia. Stool culture/ova/parasites negative. I spoke with Dr. Torres on 09/06 and updated regarding her overall clinical course. No new recommendations. Keep until platelets start to improve. Encourage spirometry - atelectasis on CT. With PT/OT today. (4) Elevated LFTs: ALT [phone], AST 80-36-58-24-19, total bilirubin 2.1-1.3, alk phos [phone] Likely secondary to sepsis; iresolved. Patient does have biliary stent in place given history of pancreatic cancer. Will continue to monitor LFTs. (5) Acute blood loss anemia: Hemoglobin of 6.4 on admission. Patient was ordered 1 unit of PRBC on 09/02. Today Hgb at 8.7. No further episodes of bleeding per rectum. (6) Carcinoma of head of pancreas: H/O adenocarcinoma of the head of the pancreas. EUS with staging at [facility] - 06/2019 Completion of radiation/chemotherapy - 03/2020 S/P Whipple procedure at [facility] 04/2020 Adjuvant chemotherapy was started last week. S/P neulasta on 08/27, 5 FU 08/26/[address] Ortiz Torres (7) Thrombocytopenia: HO hereditary hemorrhegic telangectasia H/O GI Bleeding Platelet of 18.6 on admission, this morning at 19. Starting to show improvement now. Transfuse for less than 10K or any signs of bleeding. Hypokalemia/hypophosphorus -repleted Potassium at 2.2 today again. Ordered IV potassium and potassium phosphate. Low with BMP tomorrow. Lower extremity swelling Patient was concern for lower extremity swelling. Her left lower extremities is swollen to baseline. She does have history of left lower extremity DVT. Lower extremity plaques was obtained which was positive for chronic DVT. Has been on hold given thrombocytopenia. TEDs/SCDs have been ordered. 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 Torres (oncology) was updated on 09/02. Follow up: PCP Dr. Michelle Torres upon discharge Admission and Anticipated Discharge Date Admission Date: September 01, 2020 Subjective Patient continues to feel great. No new concerns. Systolic blood pressure on the soft side with high 80s. Denies any dizziness. Continues to experience diarrhea adequate p.o. intake. Denies any chest pain or shortness of breath. Rest of the review of system is negative. Review of Systems Review of Systems: All systems reviewed & are unremarkable except as noted in HPI & below Physical Exam Physical Exam: General: A&Ox3 HENT: NCAT, MMM, EOMI Eyes: PERRLA Neck: Supple, normal range of motion CVS: normal rate and rhythm Resp: b/l good breath sounds, right sided central line in place absence of any erythema or active discharge Abdomen: Soft, nondistended and nontender Extremities: Left lower extremity swelling noted, patient reports that is her weak side. Neuro: face symmetric, left-sided weakness noted from prior Skin: warm and dry MSK: normal ROM Results & Data Results & Data ([facility]) Vital Signs (Past 12 Hours) Vital Signs Temp Pulse Resp BP Pulse Ox 09/07/20 07:33 36.8 C 71 20 88/49 L 96 09/07/20 04:16 37 C 74 16 90/52 L 94 09/06/20 23:47 36.7 C 75 16 92/51 L 94
[2020-09-07] MEDS: HEPARIN 100 UNIT/ML 5ML FLUSH FLUSH PRN (16:28)
[2020-09-08] MEDS: RASPBERRY SYRUP 5 ML UDP PO SCH ×5 (01:14→23:42)
[2020-09-08] MEDS: VANCOMYCIN HCL 250 MG/5 ML SOLN PO SCH ×5 (01:14→23:42)
[2020-09-08] MEDS: PANCREAZE (LIPASE 10,500U) CAP PO SCH ×3 (08:33→16:46)
[2020-09-08] MEDS: MIDODRINE HCL 2.5 MG TAB PO SCH ×3 (08:34→16:46)
[2020-09-08] MEDS: PANTOprazole 40 MG TAB PO SCH (08:34)
[2020-09-08] MEDS: MAGNESIUM OXIDE 400 MG TAB PO SCH (08:34)
[2020-09-08] MEDS: cefTRIAXone SODIUM 2,000 MG in DEXTROSE 5% 50 ML IV SCH (08:34)
[2020-09-08] MEDS: HEPARIN 100 UNIT/ML 5ML FLUSH FLUSH PRN (09:37)
--- NOTE | 2020-09-08 17:19 | Hospitalist Progress Note ---
Date of Service September 08, 2020 Assessment & Plan (1) Severe sepsis: admitted with severe sepsis with septic shock , required ICU admission source of infection : UTI -E coli possible pancreatitis , enterocolitis , 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 iv ceftriaxone tx completed today 09/08/20 and oral vancomycin 125 mg every 6 hours until 09/13. Gastroenterology consulted given enterocolitis/bright red blood per rectum. possible due to thrombocytopenia GI bleeding has resolved Abdominal exam remains benign. CT abdomen/pelvis noted to have enterocolitis likely from neutropenia. Stool culture/ova/parasites negative. Patient with chronic diarrhea and now starting to have formed stools. added Probiotics Hypotension : SBP in low 100 no symptoms of dizzy spell or lightheadedness Continue with midodrine 5 mg 3 times daily. (2) Neutropenic fever: afebrile now Abx tx as outlined above (3) Lactic acidosis: Lactic acidosis due to sepsis -resolved - - Neutropenic fever - Thrombocytopenia - stable prior Hospitalist discussed case with Heme onc Dr Torres - updated regarding her overall clinical course. No new recommendations. follow Daily CBC H/O DVT on Eliquis - on hold for now for thrombocytopenia (4) Elevated LFTs: Likely secondary to sepsis; also had recent chemo tx resolved , LFT normalized hx of biliary stent in place for pancreatic cancer. GI following (5) Acute blood loss anemia: due to GI bleed -resolved Hemoglobin of 6.4 on admission. s/p 1 unit of PRBC transfusion on 09/02. No further episodes of bleeding per rectum. Hb stable post transfusion (6) Carcinoma of head of pancreas: H/O adenocarcinoma of the head of the pancreas. EUS with staging at [facility] - 06/2019 complted radiation/chemotherapy - 03/2020 S/P Whipple procedure at [facility] 04/2020 Adjuvant chemotherapy was started last week. S/P neulasta on 08/27, 5 FU 08/26/[address] Ortiz Torres (7) Thrombocytopenia: HO hereditary hemorrhagic telangiectasia H/O GI Bleeding Platelet of 18.6 on admission, follow daily CBC Transfuse for less than 10K or any signs of bleeding. Hypokalemia/hypophosphorous - replaced follow daily BMP Lower extremity swelling history of left lower extremity DVT. Lower extremity Doppler positive for chronic DVT. was on Eliquis , kept on hold for thrombocytopenia. TEDs/SCDs have been ordered. 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 Torres (oncology) Disposition : plan to discharge home in next 1-2 days Follow up: PCP Dr. Michelle Torres upon discharge Admission and Anticipated Discharge Date Admission Date: September 01, 2020 Subjective follow up visit for sepsis /UTI /pancolitis : doing well today diarrhea has improved, no fever or chills no complain of abdominal pain , no nausea tolerating diet feels like her self , very pleasant asked about when she can be discharged home Review of Systems Review of Systems: All systems reviewed & are unremarkable except as noted in Subjective Physical Exam Constitutional: WD/WN, vitals as above Eyes: PERRL, conjunctivae normal, anicteric sclerae ENMT: external ear and nose normal, oropharynx normal Neck: trachea midline, no thyromegaly Respiratory: normal respiratory effort, lungs clear to auscultation Cardiovascular: RRR, no murmur, no edema Gastrointestinal (Abdomen): Percussion/Palpation: abdomen soft; abdomen nontender Musculoskeletal: no cyanosis or clubbing, extremities motor strength 5/5 Skin: no rashes, warm and dry Neurologic: PERRL, EOMI, accommodation nl, no face palsy, no dysarthria Psychiatric: A+Ox3, euthymic affect Results & Data Results & Data ([facility]) Vital Signs (Past 12 Hours) Vital Signs Temp Pulse Pulse Resp BP Pulse Ox 09/08/20 15:15 36.8 C 76 18 100/60 94 09/08/20 11:40 36.7 C 73 20 99/62 L 94 09/08/20 09:15 63 09/08/20 07:32 36.7 C 69 20 96/58 L 95
[2020-09-08] MEDS: LACTOBACILLUS ACIDOPHILUS 1 GM PACK PO SCH (19:51)
[2020-09-09] MEDS: HEPARIN 100 UNIT/ML 5ML FLUSH FLUSH PRN ×2 (05:53→13:19)
[2020-09-09] MEDS: RASPBERRY SYRUP 5 ML UDP PO SCH ×2 (05:59→12:08)
[2020-09-09] MEDS: VANCOMYCIN HCL 250 MG/5 ML SOLN PO SCH ×2 (05:59→12:08)
[2020-09-09 06:26] LABS: Nucleated RBC # (auto) 0.04 K/uL (0-0); Nucleated RBC % (auto) 0.9 %
[2020-09-09 06:53] LABS: BUN Creatinine Ratio 2.1 (10-20); Calcium 8.3 mg/dl (8.5-10.1); Creatinine Clr Calc Pharmacy 57.7 ml/min; Est GFR (African American) 82.2; Est GFR (Non-African American) 70.9; Magnesium 1.9 mg/dl (1.8-2.4); Potassium 3.4 mmol/L (3.5-5.1)
[2020-09-09 07:04] LABS: Phosphorus 2.7 mg/dl (2.5-4.9)
[2020-09-09 07:34] VITALS: BP 101/63; PULSE 75; TEMP 97.9; O2SAT 97
[2020-09-09] MEDS ORDERED: POTASSIUM CHLORIDE CRTAB 20 MEQ TABCR PO STA (07:38)
[2020-09-09 07:53] LABS: ALC (manual) 0.73 K/uL (1.2-3.4); ANC (manual) 3.42 K/uL (1.4-6.5); Giant Platelets 1+; Hematocrit (blood only) 25.3 % (37-47); Hemoglobin 8.6 g/dL (12.0-16.0); Lymphocytes # (manual) 0.73 K/uL (1.2-3.4); Lymphocytes % (manual) 15.7 %; Mean Corpuscular Hemoglobin 31.5 pg (25-34); Mean Corpuscular Volume 92.7 fL (80-100); Mean Platelet Volume 10.7 fL (7.4-10.4); Metamyelocytes # (manual) 0.04 K/uL (0-0); Metamyelocytes % (manual) 0.9 %; Monocytes # (manual) 0.32 K/uL (0.11-0.59); Myelocytes # (manual) 0.12 K/uL (0-0); Myelocytes % (manual) 2.6 %; Neutrophils # (manual) 3.42 K/uL (1.4-6.5); Neutrophils % (manual) 73.8 %; Platelet Count 35 K/uL (130-400); Platelet Estimate Decreased (Normal); RDW Coefficient of Variation 16.5 % (11.5-14.5); RDW Standard Deviation 55.5 fL (36.4-46.3); Red Blood Count 2.73 M/uL (4.2-5.4); Toxic Granulation 1+; White Blood Count 4.63 K/uL (4.8-10.8)
[2020-09-09] MEDS: MIDODRINE HCL 2.5 MG TAB PO SCH ×2 (08:03→12:08)
[2020-09-09] MEDS: PANCREAZE (LIPASE 10,500U) CAP PO SCH ×2 (08:03→12:09)
[2020-09-09] MEDS: LACTOBACILLUS ACIDOPHILUS 1 GM PACK PO SCH ×2 (08:04→12:08)
--- NOTE | 2020-09-09 09:37 | Communication Note ---
Date of Service: September 09, 2020 AM labs reviews Platelet counts improved to 35 K with improvement of WBC count, H&H stable pt will be discharged home today afternoon spoke with Pt's over phone , updated about pt being discharged home today Laurita aRndle MD
--- NOTE | 2020-09-09 12:27 | Hospitalist Progress Note ---
Date of Service September 09, 2020 Assessment & Plan (1) Severe sepsis: admitted with severe sepsis with septic shock , required ICU admission source of infection : UTI -E coli possible pancreatitis , enterocolitis , 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 iv ceftriaxone tx completed on 09/08/20 and oral vancomycin 125 mg every 6 hours until 09/13. script for 4 more days of PO Vancomycin sent to pharmacy Gastroenterology consulted given enterocolitis/bright red blood per rectum. possible due to thrombocytopenia GI bleeding has resolved Abdominal exam remains benign. CT abdomen/pelvis noted to have enterocolitis likely from neutropenia. Stool culture/ova/parasites negative. Patient with chronic diarrhea and now starting to have formed stools. added Probiotics stable to be discharged home today Hypotension : SBP in low 100 no symptoms of dizzy spell or lightheadedness Continue with midodrine 5 mg 3 times daily. (2) Neutropenic fever: afebrile now Abx tx as outlined above (3) Lactic acidosis: Lactic acidosis due to sepsis -resolved - - Neutropenic fever-resolved , has been afebrile , with improvement of WBC count prior Hospitalist discussed case with Heme onc Dr Torres - updated regarding her overall clinical course. No new recommendations. Thrombocytopenia /pancytopenia possible due to recent chemo tx Platelet count improved to 35 K stable to be discharged home today pt is asked to avoid antiplatelet Aspirin, NSAID for increased bleeding risk H/O DVT on Eliquis - on hold for now for thrombocytopenia can be resumed once platelet count > 50K (4) Elevated LFTs: Likely secondary to sepsis; also had recent chemo tx resolved , LFT normalized hx of biliary stent in place for pancreatic cancer. GI following (5) Acute blood loss anemia: due to GI bleed -resolved Hemoglobin of 6.4 on admission. s/p 1 unit of PRBC transfusion on 09/02. No further episodes of bleeding per rectum. Hb stable post transfusion CBC check in a week (6) Carcinoma of head of pancreas: H/O adenocarcinoma of the head of the pancreas. EUS with staging at [facility] - 06/2019 complted radiation/chemotherapy - 03/2020 S/P Whipple procedure at [facility] 04/2020 Adjuvant chemotherapy was started last week. S/P neulasta on 08/27, 5 FU 08/26/[address] Otriz Torres (7) Thrombocytopenia: HO hereditary hemorrhagic telangiectasia H/O GI Bleeding platelet count improved to 35 K no bleeding episode Hypokalemia/hypophosphorous - replaced repeat Lab in a week Lower extremity swelling history of left lower extremity DVT. Lower extremity Doppler positive for chronic DVT. was on Eliquis , kept on hold for thrombocytopenia. 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 Trores (oncology) Disposition : Discharge to home today Follow up: PCP Dr. Michelle Torres upon discharge Admission and Anticipated Discharge Date Admission Date: September 01, 2020 Subjective Follow up visit for sepsis /UTI /pancolitis /C diff /hx of pancreatic CA : pt feels better ,still having episodes of loose stool /but feels like she is at her baseline ( hx of chronic diarrhea post surgery ) no complain of abdominal pain , no nausea or vomiting tolerating diet no fever or chills energy level has improved stable to be discharged home today Review of Systems Review of Systems: All systems reviewed & are unremarkable except as noted in Subjective Ear, Nose, Mouth, Throat: no epistaxis Cardiovascular: as per Subjective / HPI; no chest pain, no dyspnea, no dyspnea on exertion, no orthopnea and no palpitations Gastrointestinal: + diarrhea/loose stools; no abdominal pain, no early satiety, no heartburn, no nausea, no vomiting, no coffee ground emesis, no hematemesis and no blood in stools Physical Exam Constitutional: WD/WN, vitals as above Eyes: PERRL, conjunctivae normal, anicteric sclerae ENMT: external ear and nose normal, oropharynx normal Neck: trachea midline, no thyromegaly Respiratory: normal respiratory effort, lungs clear to auscultation Cardiovascular: RRR, no murmur, no edema Gastrointestinal (Abdomen): Percussion/Palpation: abdomen soft; abdomen nontender Musculoskeletal: no cyanosis or clubbing, extremities motor strength 5/5 Skin: no rashes, warm and dry Neurologic: PERRL, EOMI, accommodation nl, no face palsy, no dysarthria Psychiatric: A+Ox3, euthymic affect Results & Data Results & Data ([facility]) Vital Signs (Past 12 Hours) Vital Signs Temp Pulse Resp BP Pulse Ox 09/09/20 07:34 36.6 C 75 20 101/63 97
--- NOTE | 2020-09-09 16:44 | Discharge Summary ---
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 currently undergoing adjuvant chemotherapy, hereditary hemorrhagic telangiectasia, history of CVA with residual left-sided weakness, history of DVT and PE on Eliquis who presents to ED secondary to fever, chills and GI symptoms x1 day. Of significance patient's last chemotherapy dose was 08/26/2020. She received Neulasta injection on 08/27/2020. She had been doing well until yesterday and early this morning when she became febrile, chills, sweats, nausea, vomiting and diarrhea. She chronically has diarrhea secondary to Whipple procedure and feels this is at baseline. She also admits to having epistaxis for approximately 2 hours 2 days ago. She has not had another epistaxis since. She contacted her oncologist who recommended she reduce her dose of Eliquis from 2.5 mg twice daily to 1.25 mg twice daily. Also stopped her aspirin. She denies any hemoptysis, melena, hematochezia or hematuria. She does have history of C. difficile but feels symptoms are different. She also elicits to being occasionally dizzy and having a dull frontal headache. She denies lightheadedness, syncope, chest pain, shortness of breath, cough, URI symptoms, abdominal pain, dysuria, increased urgency or frequency with urination. She lives at home with her and does ambulate with a cane. She does have some limitation secondary to prior stroke. She did not take any of her medications this morning. Appetite has been normal. In ED she was febrile with a T-max of 38.4. She was otherwise hemodynamically stable. She does meet sepsis criteria secondary to fever, tachycardia and neutropenia. Initial lactic acid was 3.0. Blood cultures and urine cultures were obtained. She received 2 L of IV fluid and IV cefepime. Principal Diagnosis Severe Sepsis -resolved Neutropenic fever Thrombocytopenia Acute blood loss anemia due to rectal bleed Epistaxis UTI Pancolitis Hx of Pancreatic cancer s/p surgery on chemo treatment C diff infection /Pancolitis Discharge Exam Constitutional WD/WN, vitals as above Eyes PERRL, conjunctivae normal, anicteric sclerae ENMT external ear and nose normal, oropharynx normal Neck trachea midline, no thyromegaly Respiratory normal respiratory effort, lungs clear to auscultation Cardiovascular RRR, no murmur, no edema Gastrointestinal (Abdomen) Percussion/Palpation: abdomen soft; abdomen nontender Musculoskeletal no cyanosis or clubbing, extremities motor strength 5/5 Skin no rashes, warm and dry Neurologic PERRL, EOMI, accommodation nl, no face palsy, no dysarthria Psychiatric A+Ox3, euthymic affect Discharge Data Allergies Allergy/AdvReac Type Severity Reaction Status Date / Time FILTER REQUIRED WITH IV AdvReac Unknown Uncoded 09/01/20 14:53 FLUIDS Consultations 09/01/20 16:43 ED Decision to Admit Stat 09/03/20 12:44 Consult Hematology Routine Consult Infectious Diseases Routine Ordered Studies 09/01/20 13:49 CT abd pelvis IV con only Stat 09/01/20 15:37 CT head/brain wo con Stat 09/05/20 09:14 US venous doppler LE BI Stat Hospital Course (1) Severe sepsis: admitted with severe sepsis with septic shock , required ICU admission source of infection : UTI -E coli possible pancreatitis , enterocolitis , 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 iv ceftriaxone tx completed on 09/08/20 and oral vancomycin 125 mg every 6 hours until 09/13. script for 4 more days of PO Vancomycin sent to pharmacy Gastroenterology consulted given enterocolitis/bright red blood per rectum. possible due to thrombocytopenia GI bleeding has resolved Abdominal exam remains benign. CT abdomen/pelvis noted to have enterocolitis likely from neutropenia. Stool culture/ova/parasites negative. Patient with chronic diarrhea and now starting to have formed stools. added Probiotics stable to be discharged home today Hypotension : SBP in low 100 no symptoms of dizzy spell or lightheadedness Continue with midodrine 5 mg 3 times daily. (2) Neutropenic fever: afebrile now Abx tx as outlined above (3) Lactic acidosis: Lactic acidosis due to sepsis -resolved - - Neutropenic fever-resolved , has been afebrile , with improvement of WBC count prior Hospitalist discussed case with Heme onc Dr Torres - updated regarding her overall clinical course. No new recommendations. Thrombocytopenia /pancytopenia possible due to recent chemo tx Platelet count improved to 35 K stable to be discharged home today pt is asked to avoid antiplatelet Aspirin, NSAID for increased bleeding risk H/O DVT on Eliquis - on hold for now for thrombocytopenia can be resumed once platelet count > 50K (4) Elevated LFTs: Likely secondary to sepsis; also had recent chemo tx resolved , LFT normalized hx of biliary stent in place for pancreatic cancer. GI following (5) Acute blood loss anemia: due to GI bleed -resolved Hemoglobin of 6.4 on admission. s/p 1 unit of PRBC transfusion on 09/02. No further episodes of bleeding per rectum. Hb stable post transfusion CBC check in a week (6) Carcinoma of head of pancreas: H/O adenocarcinoma of the head of the pancreas. EUS with staging at [facility] - 06/2019 complted radiation/chemotherapy - 03/2020 S/P Whipple procedure at [facility] 04/2020 Adjuvant chemotherapy was started last week. S/P neulasta on 08/27, 5 FU 08/26/[address] Ortiz Torres (7) Thrombocytopenia: HO hereditary hemorrhagic telangiectasia H/O GI Bleeding platelet count improved to 35 K no bleeding episode Hypokalemia/hypophosphorous - replaced repeat Lab in a week Lower extremity swelling history of left lower extremity DVT. Lower extremity Doppler positive for chronic DVT. was on Eliquis , kept on hold for thrombocytopenia. 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 Torres (oncology) Disposition : Discharge to home today Follow up: PCP Dr. Michelle Torres upon discharge Total Time Total Time Spent Total Time Spent (In Minutes): approx 40 mins Total Time Includes: Examination of the Patient, Discharge Planning and Medication Reconciliation Discharge Plan Discharge Items Patient Disposition: Home - Self-Care Reason For Visit: NEUTROPENIC FEVER, ENTEROCOLITIS Discharge Diagnosis: Severe Sepsis -resolved Neutropenic fever Thrombocytopenia Acute blood loss anemia due to rectal bleed Epistaxis UTI Pancolitis Hx of Pancreatic cancer s/p surgery on chemo treatment C diff infection /Pancolitis Activity: As commented below Activity Comment: as tolerated Non-emergency contact: Primary Care Provider and Oncologist Call non-emergency contact if: you have any medication questions, your symptoms worsen and your temperature is above 101 Follow-up/Referrals: Michelle Torres MD [Primary Care Provider] - 09/13/20 2:00 pm (Date & Time 09/13/2020 2:00 PM Provider Loc Blount PA-C Department General Internal Medicine [facility] ) Ortiz Torres MD [Surgeon] - (Please call to schedule follow up appointment with Dr Ortiz Torres in 2-3 weeks ) Diet: Low Fiber and Low Fat Addtl Attending Provider Instructions: Lab work : Basic metabolic Panel , complete blood count with differential on next physician visit Do not take Elquis till your platelet count has increased more than 50 K Do not take protonix for next 7-10 days as stomach acid reducing drugs been associated with increased risk of C difficile infection /diarrhea please continue to take Probiotics 2-3 times daily with meals do not take Aspirin, Aleve, Advil , Motrin . Ibuprophen , Naproxen -avoid all over the counter pain medications belonging to NSAID's group -will cause increase risk of bleeding in setting of low platelet count Can take Tylenol as needed for pain and fever Pending Studies at Discharge: No Stand-Alone Forms: My [facility], Smoking Cessation Medications and DC Order Prescriptions: New Floranex 100 million cell Granules In Packet 1 g PO TIDM 30 Days Qty: 0 RF: 0 Creon 36,000-114,000- 180,000 unit Capsule,Delayed Release(Dr/Ec) 1 cap PO TIDM 30 Days Qty: 30 RF: 0 midodrine 2.5 mg Tablet 5 mg PO TID Qty: 0 RF: 0 vancomycin 125 mg capsule 125 mg PO Q6H 4 Days Qty: 16 RF: 0 Continued loratadine [Claritin] 10 mg Tablet 10 mg PO QAM RF: 0 Discontinued pantoprazole 40 mg tablet,delayed release (DR/EC) 40 mg PO DAILY RF: 0 Eliquis 5 mg tablet 1.25 mg PO BID RF: 0 Discharge Orders: Discharge Order (Routine); Ordered 09/09/20 Ordered By: Laurita Velasquez/Other Patient Handouts: What Is C. Diff?, My C. Diff Infection Treatment Plan Admission Data Admit Date/Time: 09/01/20 16:48 Attending Provider: Laurita Randle Admit Provider: Sanford Cordova Primary Care Provider: Michelle Torres Other Providers: [place] ; Sanford Cordova ; Ortiz Torres ; Sanford Espino ; Noah Vazquez ; Zaid Weiss ; Kareem Majano I. ; Vince Clay II ; Carol Villegas ; Josh Fierro Other Interventions: Discharge Summary Assessment (RN) Last Done: 09/09/20 12:50
== END 2020-09-09 14:15 | disposition home health service (06) | DRG 871 ==
LOC: ED 12:33 → SUATTDRO 16:48 → 1E 16:48 → 2N 09-03 16:05

== ENCOUNTER 2022-08-12 19:16 | Inpatient (IN) ==
[2022-08-12] MEDS ORDERED: ONDANSETRON INJ 2 MG/ML 2 ML VIAL IV STA (19:33)
[2022-08-12] MEDS ORDERED: ACETAMINOPHEN 1,000 MG/100 ML VIAL IV STA (19:36)
--- NOTE | 2022-08-12 19:36 | Emergency Department Note ---
Impression & Plan Acute dehydration, Nausea & vomiting, History of pancreatic cancer, Transaminitis, Acute hyponatremia ED Provider Note NAME: CHARLIE DESAI AGE: 67 SEX: F : 1955 ARRIVES VIA: Ambulance INFORMANT: Patient, ED PROVIDER(S): Solitario Barrientos MD CHIEF COMPLAINT: Nausea vomiting, general unwellness MEDICAL DECISION MAKING: Patient presented for feeling unwell in the setting of nausea vomiting. The patient did have low-grade temperature up to 100.1. The patient was ordered over [facility] IV fluids and IV Zofran. Blood work was also obtained along with a chest x-ray and viral panel. Patient has a normal white count H&H and platelet count. The patient's kidney function was unremarkable. The patient has hypercalcemia with mild transaminitis. I did review the patient's most recent outpatient blood work that was completed through [facility] and the patient had a bilirubin of 1 AST of 59 and alk phos of 209. Lipase is normal. The patient does not have any right upper quadrant pain. The patient had her gallbladder out with her Whipple procedure. COVID flu and RSV negative. Given the patient's dehydration and hyp otension nausea vomiting and transaminitis do believe the patient would benefit from admission. Patient also does have hyponatremia 132. This is a significant change. Patient was admitted to the medicine service I did speak the on-call hospitalist Dr. Torre. Prior /Outside records reviewed: I did review the patient's outpatient blood work completed on March 01, 2022 showed that the patient had an AST of 59 alk phos of 209 a bilirubin of 1. Differential diagnosis: Gastroenteritis, food borne illness, infections, appendicitis, diverticulitis, inflammatory bowel disease, obstruction, GI bleed, biliary pathology, volvulus, as well as other pathologies. Diagnostics, as interpreted by me: ECG: Sinus tachycardia, rate of 111 normal intervals normal axis no ST elevations, T wave inversions anteriorly no ST elevations. T wave inversions more evident in anterior leads from comparison EKG August 2021 Cardiac monitoring: An order was placed for continuous cardiac monitoring. The monitor shows a rate of 87 with sinus rhythm. Patient was placed on pulse oximetry Medical decision rules: None Imaging studies: See below HPI: Patient presents due to concern for 2 to 3 days of symptoms of feeling generally unwell. The patient denies any fevers or chills but has not been able to take much in terms of fluids or liquids. Patient denies any recent travel or known sick contacts. The patient does live with her at home. The patient has been trying some Tylenol but without significant improvement in symptoms. The patient does have a remote history of pancreatic cancer status post Whipple procedure does follow with [facility]. Patient denies any chest pains or shortness of breath. The patient does have some chronic back pain but denies any numbness tingling or focal weakness and no recent trauma or falls. The patient did have an outpatient MRI but does not yet know the results. Patient denies any blood in urine or stool. PAST MEDICAL HISTORY: See Below PAST SURGICAL HISTORY: See Below SOCIAL HISTORY: See Below HOME MEDICATIONS: See Below ALLERGIES: See Below VITALS: See Below PHYSICAL EXAMINATION: GENERAL: NAD, wearing a mask, non-toxic. Thin in appearance, wearing glasses. EYE EXAM: Normal conjunctiva. PERRL, no anisocoria and EOM's grossly intact w/o pain. NECK: Supple, no nuchal rigidity, no adenopathy, non-tender. No signs of meningismus. FROM of the neck with good chin to chest and neck extension. No stridor. LUNGS: Clear to auscultation. Normal chest wall mechanics. HEART: NSR, no MRG. ABDOMEN: Abdomen soft, no right upper quadrant pain, non-tender, normo-active bowel sounds, no masses, no rebound or guarding. BACK: No CVA TTP. SKIN: No rashes and no bruising. UPPER EXTREMITIES: Upper extremities are grossly normal. LOWER EXTREMITIES: Grossly normal, no edema. No saddle anesthesia. NEURO EXAM: A&O x3, cranial nerves II-XII grossly intact, normal speech, moves all 4 extremities. Past Med/Surg History Medical History Anemia Closed fracture of right hip requiring operative repair with malunion DVT prophylaxis Elevated lactic acid level Elevated LFTs Hemiplegia affecting left dominant side Hypovolemic shock Neutropenia Neutropenic fever Pancreatic cancer Patent foramen ovale Pneumocephalus Pulmonary embolism Severe malnutrition Stroke Telangiectasia Thrombocytopenia Transaminitis Urinary tract infection Surgical History History of ERCP 07/05/2019 - biliary stricture, adenocarcinoma on cytology 08/28/2019 - biliary stricture, stent replaced History of esophagogastroduodenoscopy (EGD) EGD with EUS. 07/10/2019. pancreatic adenocarcinoma, enlarged lymph node, GB sludge Family History Mother , age 86 C. diff Cancer possible pancreas Father , age 82 prostate cancer No problems noted. Brother Cancer prostate met cancer and melanoma Brother Cancer melanoma Sister Idhlb-Nymyc-Oljuo disease Sister No problems noted. Son No problems noted. Son No problems noted. 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 Feels Safe at Home: Yes Childhood Exposure to Second-Hand Smoke: No caffeine: Yes (one cup per day ) during the past year weight has: decreased > 10 lbs Dental Care, Regularly: Yes Physical Activity Frequency: 1-2 Times per Week Seatbelt Use: always Sunscreen Use: Yes Assistive Devices: None Allergies Allergies Allergy/AdvReac Type Severity Reaction Status Date / Time FILTER REQUIRED WITH IV AdvReac Unknown Uncoded 08/12/22 22:21 FLUIDS Home Meds Home Medications Medication Instructions Recorded Confirmed loratadine 10 mg tablet (Claritin) 10 mg PO QAM 10/04/19 08/12/22 apixaban 2.5 mg tablet (Eliquis) 1.25 mg PO BID 01/07/21 08/12/22 pantoprazole 40 mg granules 40 mg PO QAM 01/07/21 08/12/22 delayed-release for susp in packet (Protonix) calcium carbonate 600 mg-vitamin 2 tab PO DAILY 08/12/22 08/12/22 D3 10 mcg (400 unit) tablet (Calcium 600 + D(3)) gabapentin 100 mg capsule 300 mg PO TID 08/12/22 08/12/22 hydrocodone 5 mg-acetaminophen 325 1 tab PO Q6 PRN Moderate Pain 08/12/22 08/12/22 mg tablet (Scale Score 5-6) midodrine 5 mg tablet 5 mg PO QAM 08/12/22 08/12/22 [id number]-lutein tablet 1 tab PO QAM 08/12/22 08/12/22 Results & Data (ED) Vital Signs Vital Signs - 24 hr 08/12/22 19:49 08/12/22 19:33 08/12/22 19:24 Temperature 37.2 C Temperature Source Oral Pulse Rate 115 H 113 H Pulse Rate from SpO2 Sensor 112 H Pulse Rhythm Regular Pulse Strength Normal Respiratory Rate 18 17 Respiratory Effort / Characteristics Non-Labored Spontaneous Respiratory Depth Normal Respiratory Pattern Regular Blood Pressure 92/57 L Blood Pressure Mean 68 Blood Pressure Position Sitting Pulse Oximetry 94 95 95 Oxygen Delivery Method Room Air Room Air Sepsis Recent Fever Within 48 Hours No Sepsis New/Unexplained Change in Mental Status No Sepsis Action Taken by Nursing No Action Required 08/12/22 19:27 08/12/22 19:27 08/12/22 19:30 Temperature Temperature Source Pulse Rate 116 H 111 H Pulse Rate from SpO2 Sensor 117 H 111 H Pulse Rhythm Pulse Strength Respiratory Rate 21 15 Respiratory Effort / Characteristics Respiratory Depth Respiratory Pattern Blood Pressure 92/57 L Blood Pressure Mean 68 Blood Pressure Position Pulse Oximetry 94 92 Oxygen Delivery Method Sepsis Recent Fever Within 48 Hours Sepsis New/Unexplained Change in Mental Status Sepsis Action Taken by Nursing 08/12/22 19:40 08/12/22 19:50 08/12/22 20:00 Temperature Temperature Source Pulse Rate 109 H 105 H 103 H Pulse Rate from SpO2 Sensor 109 H 105 H 102 H Pulse Rhythm Pulse Strength Respiratory Rate 15 19 14 Respiratory Effort / Characteristics Respiratory Depth Respiratory Pattern Blood Pressure Blood Pressure Mean Blood Pressure Position Pulse Oximetry 95 94 96 Oxygen Delivery Method Sepsis Recent Fever Within 48 Hours Sepsis New/Unexplained Change in Mental Status Sepsis Action Taken by Nursing 08/12/22 20:01 08/12/22 20:01 08/12/22 20:10 Temperature Temperature Source Pulse Rate 102 H 98 H Pulse Rate from SpO2 Sensor 102 H 98 H Pulse Rhythm Pulse Strength Respiratory Rate 16 15 Respiratory Effort / Characteristics Respiratory Depth Respiratory Pattern Blood Pressure 90/53 L Blood Pressure Mean 65 Blood Pressure Position Pulse Oximetry 96 95 Oxygen Delivery Method Sepsis Recent Fever Within 48 Hours Sepsis New/Unexplained Change in Mental Status Sepsis Action Taken by Nursing 08/12/22 20:20 08/12/22 20:30 08/12/22 20:30 Temperature Temperature Source Pulse Rate 102 H 94 H Pulse Rate from SpO2 Sensor 102 H 94 H Pulse Rhythm Pulse Strength Respiratory Rate 17 20 Respiratory Effort / Characteristics Respiratory Depth Respiratory Pattern Blood Pressure 90/51 L Blood Pressure Mean 64 Blood Pressure Position Pulse Oximetry 96 95 Oxygen Delivery Method Sepsis Recent Fever Within 48 Hours Sepsis New/Unexplained Change in Mental Status Sepsis Action Taken by Nursing 08/12/22 20:40 08/12/22 20:50 08/12/22 21:00 Temperature Temperature Source Pulse Rate 96 H 94 H Pulse Rate from SpO2 Sensor 96 H 94 H Pulse Rhythm Pulse Strength Respiratory Rate 17 21 Respiratory Effort / Characteristics Respiratory Depth Respiratory Pattern Blood Pressure 90/52 L Blood Pressure Mean 64 Blood Pressure Position Pulse Oximetry 96 97 Oxygen Delivery Method Sepsis Recent Fever Within 48 Hours Sepsis New/Unexplained Change in Mental Status Sepsis Action Taken by Nursing 08/12/22 21:00 08/12/22 21:10 08/12/22 21:20 Temperature Temperature Source Pulse Rate 94 H 94 H 89 Pulse Rate from SpO2 Sensor 94 H 93 H 89 Pulse Rhythm Pulse Strength Respiratory Rate 18 22 16 Respiratory Effort / Characteristics Respiratory Depth Respiratory Pattern Blood Pressure Blood Pressure Mean Blood Pressure Position Pulse Oximetry 96 94 95 Oxygen Delivery Method Sepsis Recent Fever Within 48 Hours Sepsis New/Unexplained Change in Mental Status Sepsis Action Taken by Nursing 08/12/22 21:30 08/12/22 21:30 08/12/22 21:40 Temperature Temperature Source Pulse Rate 89 88 Pulse Rate from SpO2 Sensor 89 88 Pulse Rhythm Pulse Strength Respiratory Rate 25 H 20 Respiratory Effort / Characteristics Respiratory Depth Respiratory Pattern Blood Pressure 86/48 L Blood Pressure Mean 60 Blood Pressure Position Pulse Oximetry 94 94 Oxygen Delivery Method Sepsis Recent Fever Within 48 Hours Sepsis New/Unexplained Change in Mental Status Sepsis Action Taken by Nursing 08/12/22 21:50 08/12/22 22:00 08/12/22 22:00 Temperature Temperature Source Pulse Rate 88 89 Pulse Rate from SpO2 Sensor 88 89 Pulse Rhythm Pulse Strength Respiratory Rate 15 17 Respiratory Effort / Characteristics Respiratory Depth Respiratory Pattern Blood Pressure 86/48 L Blood Pressure Mean 60 Blood Pressure Position Pulse Oximetry 94 94 Oxygen Delivery Method Sepsis Recent Fever Within 48 Hours Sepsis New/Unexplained Change in Mental Status Sepsis Action Taken by Nursing 08/12/22 22:10 08/12/22 22:20 08/12/22 22:30 Temperature Temperature Source Pulse Rate 85 87 Pulse Rate from SpO2 Sensor 86 87 Pulse Rhythm Pulse Strength Respiratory Rate 16 15 Respiratory Effort / Characteristics Respiratory Depth Respiratory Pattern Blood Pressure 87/51 L Blood Pressure Mean 63 Blood Pressure Position Pulse Oximetry 94 94 Oxygen Delivery Method Sepsis Recent Fever Within 48 Hours Sepsis New/Unexplained Change in Mental Status Sepsis Action Taken by Nursing 08/12/22 22:30 Temperature Temperature Source Pulse Rate 84 Pulse Rate from SpO2 Sensor 84 Pulse Rhythm Pulse Strength Respiratory Rate 13 Respiratory Effort / Characteristics Respiratory Depth Respiratory Pattern Blood Pressure Blood Pressure Mean Blood Pressure Position Pulse Oximetry 95 Oxygen Delivery Method Sepsis Recent Fever Within 48 Hours Sepsis New/Unexplained Change in Mental Status Sepsis Action Taken by [facility] Medications Current Medication List: was personally reviewed by me Laboratory Data Attestation: I reviewed the patient's lab results. 08/12/22 19:40 08/12/22 19:40 Lab Results 08/12/22 08/12/22 08/12/22 Range/Units 19:22 19:40 19:40 WBC 8.09 (4.8-10.8) K/ul RBC 3.87 L (3.93-5.22) M/uL Hgb 13.0 (12.0-16.0) g/dl Hct 38.0 (34.1-44.9) % MCV 98.2 (80.0-100.0) fL MCH 33.6 (25.0-34.0) pg MCHC 34.2 (32.0-36.0) g/dL RDW Std Deviation 46.7 H (36.4-46.3) fL RDW Coeff of Rajesh 13.2 (11.5-14.5) % Plt Count 189 (130-400) K/uL MPV 11.2 (9.4-12.3) fL Immature Gran % (Auto) 0.4 % Neut % (Auto) 92.0 % Lymph % (Auto) 2.2 % Ballard % (Auto) 5.3 % Eos % (Auto) 0.0 % Baso % (Auto) 0.1 % Neut # (Auto) 7.44 H (1.4-6.5) K/uL Lymph # (Auto) 0.18 L (1.2-3.4) K/uL Ballard # (Auto) 0.43 (0.24-0.82) K/uL Eos # (Auto) 0.00 (0-0.50) K/uL Baso # (Auto) 0.01 (0-0.2) K/uL Immature Gran # (Auto) 0.03 H (0.00-0.02) K/uL PT 11.4 (9.0-12.0) Seconds INR 1.1 (0.9-1.1) Sodium (136-145) mmol/L Potassium (3.5-5.1) mmol/L Chloride (98-107) mmol/L Carbon Dioxide (21-32) mmol/L Anion Gap (3-11) BUN (6-23) mg/dl Creatinine (0.6-1.2) mg/dl Est Cr Clr Drug Dosing Est GFR ( Amer) ml/min Est GFR (Non-Af Amer) ml/min BUN/Creatinine Ratio (10-20) Glucose (70-99(Fasting)) mg/dl Calcium (8.5-10.1) mg/dl Magnesium (1.7-2.4) mg/dl Total Bilirubin (0.2-1.0) mg/dl AST (13-39) U/L ALT (7-52) U/L Alkaline Phosphatase (34-104) U/L Total Protein (6.0-8.3) gm/dl Albumin (3.4-5.0) gm/dl Globulin (2.5-4.0) gm/dl Albumin/Globulin Ratio (0.9-2) Lipase (11-82) U/L TSH (0.300-4.500) uIu/ml SARS-CoV-2 (PCR) NEGATIVE (Negative) Influenza Type A (PCR) Negative (Neg) Influenza Type B (PCR) Negative (Neg) RSV (RT-PCR) Negative (Neg) 08/12/22 08/12/22 08/12/22 Range/Units 19:40 19:40 21:01 WBC (4.8-10.8) K/ul RBC (3.93-5.22) M/uL Hgb (12.0-16.0) g/dl Hct (34.1-44.9) % MCV (80.0-100.0) fL MCH (25.0-34.0) pg MCHC (32.0-36.0) g/dL RDW Std Deviation (36.4-46.3) fL RDW Coeff of Rajesh (11.5-14.5) % Plt Count (130-400) K/uL MPV (9.4-12.3) fL Immature Gran % (Auto) % Neut % (Auto) % Lymph % (Auto) % Ballard % (Auto) % Eos % (Auto) % Baso % (Auto) % Neut # (Auto) (1.4-6.5) K/uL Lymph # (Auto) (1.2-3.4) K/uL Ballard # (Auto) (0.24-0.82) K/uL Eos # (Auto) (0-0.50) K/uL Baso # (Auto) (0-0.2) K/uL Immature Gran # (Auto) (0.00-0.02) K/uL PT (9.0-12.0) Seconds INR (0.9-1.1) Sodium 132 L (136-145) mmol/L Potassium 4.4 (3.5-5.1) mmol/L Chloride 100 (98-107) mmol/L Carbon Dioxide 26 (21-32) mmol/L Anion Gap 6 (3-11) BUN 15 (6-23) mg/dl Creatinine 0.95 (0.6-1.2) mg/dl Est Cr Clr Drug Dosing Not Reportable Est GFR ( Amer) 71.8 ml/min Est GFR (Non-Af Amer) 62.0 ml/min BUN/Creatinine Ratio 15.8 (10-20) Glucose 126 H (70-99(Fasting)) mg/dl Calcium 7.9 L (8.5-10.1) mg/dl Magnesium 1.9 (1.7-2.4) mg/dl Total Bilirubin 2.6 H (0.2-1.0) mg/dl AST 199 H (13-39) U/L ALT 159 H (7-52) U/L Alkaline Phosphatase 247 H (34-104) U/L Total Protein 6.6 (6.0-8.3) gm/dl Albumin 3.5 (3.4-5.0) gm/dl Globulin 3.1 (2.5-4.0) gm/dl Albumin/Globulin Ratio 1.1 (0.9-2) Lipase < 3 L (11-82) U/L TSH 0.810 (0.300-4.500) uIu/ml SARS-CoV-2 (PCR) (Negative) Influenza Type A (PCR) (Neg) Influenza Type B (PCR) (Neg) RSV (RT-PCR) (Neg) Administered Medications Discontinued Medications Fentanyl Citrate (Fentanyl Citrate 100 Mcg/2 Ml Vial) 25 mcg IV NOW STA Stop: 08/12/22 20:48 Last Admin: 08/12/22 20:57 Dose: 25 mcg Documented By: [facility] Sodium Chloride (Nss 1000ml) 1,000 mls @ 999 mls/hr IV .Q1H1M COLT Stop: 08/12/22 20:45 Last Infusion: 08/12/22 20:44 Dose: 0 mls/hr Documented By: [facility] Admin: 08/12/22 19:42 Dose: 999 mls/hr Documented By: [email or web address] Acetaminophen (Ofirmev) 1,000 mg in 100 mls @ 400 mls/hr IV NOW STA Stop: 08/12/22 19:50 Last Infusion: 08/12/22 20:12 Dose: 0 mls/hr Documented By: [facility] Admin: 08/12/22 19:43 Dose: 400 mls/hr Documented By: [facility] Sodium Chloride (Nss 1000ml) 1,000 mls @ 999 mls/hr IV .Q1H1M ONE Stop: 08/12/22 22:42 Last Infusion: 08/12/22 23:09 Dose: 0 mls/hr Documented By: Lizzy Admin: 08/12/22 22:01 Dose: 999 mls/hr Documented By: [facility] Ondansetron HCl (Ondansetron Inj 2 Mg/Ml 2 Ml Vial) 4 mg IV NOW STA Stop: 08/12/22 19:34 Last Admin: 08/12/22 19:42 Dose: 4 mg Documented By: [facility] Discharge Plan Visit Data Chief Complaint: Illness Stated Complaint: ILLNESS COUPLE DAYS, BACK & RIB PAIN NAUSEA ED Provider: Solitario Barrientos Discharge Problem: Acute dehydration, Nausea & vomiting, History of pancreatic cancer, Transaminitis, Acute hyponatremia Patient Disposition: Admitted As Inpatient Forms Stand Alone Forms: [facility] Prescriptions Prescriptions: No Action pantoprazole [Protonix] [address] for susp in packet 40 mg PO QAM Eliquis 2.5 mg tablet 1.25 mg PO BID loratadine [Claritin] 10 mg Tablet 10 mg PO QAM hydrocodone-acetaminophen 5-325 mg tablet 1 tab PO Q6 PRN (Reason: Moderate Pain (Scale Score 5-6)) gabapentin 100 mg capsule 300 mg PO TID midodrine 5 mg tablet 5 mg PO QAM Centrum Silver Ultra Women's Tablet 1 tab PO QAM calcium carbonate-vitamin D3 [Calcium 600 + D(3)] 600 mg-10 mcg (400 unit) Tablet 2 tab PO DAILY Referrals Referrals: Michelle Torres MD [Primary Care Provider] -
[2022-08-12] MEDS ORDERED: SODIUM CHLORIDE 0.9% 1000ML 1,000 ML IV SCH (19:45)
[2022-08-12 19:54] LABS: Mean Corpuscular Hemoglobin 33.6 pg (25.0-34.0); Mean Corpuscular Hgb Conc 34.2 g/dL (32.0-36.0); Mean Corpuscular Volume 98.2 fL (80.0-100.0); Mean Platelet Volume 11.2 fL (9.4-12.3); Platelet Count 189 K/uL (130-400); RDW Coefficient of Variation 13.2 % (11.5-14.5); RDW Standard Deviation 46.7 fL (36.4-46.3); Red Blood Count 3.87 M/uL (3.93-5.22); White Blood Count 8.09 K/ul (4.8-10.8)
[2022-08-12 20:04] LABS: INR 1.1 (0.9-1.1); Prothrombin Time 11.4 Seconds (9.0-12.0)
[2022-08-12 20:09] LABS: Basophils # (auto) 0.01 K/uL (0-0.2); Basophils % (auto) 0.1 %; Immature Granulocytes # (auto) 0.03 K/uL (0.00-0.02); Immature Granulocytes % (auto) 0.4 %; Lymphocytes # (auto) 0.18 K/uL (1.2-3.4); Lymphocytes % (auto) 2.2 %; Monocytes # (auto) 0.43 K/uL (0.24-0.82); Monocytes % (auto) 5.3 %; Neutrophils # (auto) 7.44 K/uL (1.4-6.5)
[2022-08-12 20:16] LABS: Alanine Aminotransferase 159 U/L (7-52); Albumin Globulin Ratio 1.1 (0.9-2); Albumin Level 3.5 gm/dl (3.4-5.0); Alkaline Phosphatase 247 U/L (34-104); Anion Gap 6 (3-11); Aspartate Aminotransferase 199 U/L (13-39); BUN Creatinine Ratio 15.8 (10-20); Bilirubin,Total 2.6 mg/dl (0.2-1.0); Blood Urea Nitrogen 15 mg/dl (6-23); Calcium 7.9 mg/dl (8.5-10.1); Carbon Dioxide 26 mmol/L (21-32); Chloride 100 mmol/L (98-107); Est GFR (African American) 71.8 ml/min; Globulin 3.1 gm/dl (2.5-4.0); Glucose 126 mg/dl (70-99(Fasting)); Magnesium 1.9 mg/dl (1.7-2.4); Potassium 4.4 mmol/L (3.5-5.1); Sodium 132 mmol/L (136-145); Total Protein 6.6 gm/dl (6.0-8.3)
[2022-08-12 20:17] LABS: Influenza A virus by PCR Negative (Neg); Influenza B virus by PCR Negative (Neg); RSV by PCR Negative (Neg); SARS CoV2 RNA(COVID-19) Ceph NEGATIVE (Negative)
[2022-08-12] MEDS ORDERED: fentaNYL citrate 100 MCG/2 ML VIAL IV STA (20:47)
[2022-08-12] MEDS ORDERED: SODIUM CHLORIDE 0.9% 1000ML 1,000 ML IV ONE (21:42)
[2022-08-13] MEDS: D5W AND NSS 1,000 ML IV SCH ×2 (00:49→12:18)
[2022-08-13] MEDS ORDERED: ONDANSETRON INJ 2 MG/ML 2 ML VIAL IV PRN (00:49)
[2022-08-13] MEDS ORDERED: POLYETHYLENE (MIRALAX) 17 GM PACK PO PRN (00:49)
[2022-08-13] MEDS ORDERED: oxyCODONE HCL IR 5 MG TAB (IMMEDIATE RELEASE) PO PRN (00:49)
[2022-08-13] MEDS: HYDROmorphone INJ 0.5 MG/0.5 ML SYR IV PRN ×4 (01:35→20:20)
[2022-08-13] MEDS: APIXABAN 2.5 MG TAB PO SCH ×3 (03:00→20:23)
[2022-08-13 06:12] LABS: Hematocrit (blood only) 30.8 % (34.1-44.9); Hemoglobin 10.5 g/dl (12.0-16.0); Mean Corpuscular Hemoglobin 33.8 pg (25.0-34.0); Mean Corpuscular Hgb Conc 34.1 g/dL (32.0-36.0); Mean Platelet Volume 11.4 fL (9.4-12.3); Platelet Count 133 K/uL (130-400); RDW Coefficient of Variation 13.3 % (11.5-14.5); RDW Standard Deviation 48.6 fL (36.4-46.3); Red Blood Count 3.11 M/uL (3.93-5.22); White Blood Count 5.46 K/ul (4.8-10.8)
[2022-08-13 06:13] LABS: Basophils # (auto) 0.01 K/uL (0-0.2); Basophils % (auto) 0.2 %; Immature Granulocytes # (auto) 0.02 K/uL (0.00-0.02); Immature Granulocytes % (auto) 0.4 %; Lymphocytes % (auto) 9.2 %; Monocytes # (auto) 0.51 K/uL (0.24-0.82); Monocytes % (auto) 9.3 %; Neutrophils # (auto) 4.42 K/uL (1.4-6.5); Neutrophils % (auto) 80.9 %; Platelet Estimate Normal (Normal)
[2022-08-13 06:24] LABS: BUN Creatinine Ratio 15.4 (10-20); Calcium 6.7 mg/dl (8.5-10.1); Creatinine Clr Calc Pharmacy 53.7 ml/min; Est GFR (African American) 91.2 ml/min; Est GFR (Non-African American) 78.7 ml/min; Magnesium 1.9 mg/dl (1.7-2.4); Potassium 3.9 mmol/L (3.5-5.1)
--- NOTE | 2022-08-13 07:29 | Hospitalist Progress Note ---
Date of Service August 13, 2022 Assessment & Plan Admission and Anticipated Discharge Date Admission Date: August 12, 2022 Subjective Patient with history of pancreatic cancer status post Whipple procedure, chemo and radiation, now presents with nausea and vomiting elevated LFTs Results & Data Results & Data ([facility]) Vital Signs (Past 12 Hours) Vital Signs Temp Pulse Pulse Resp BP BP Pulse Ox 08/13/22 00:40 08/13/22 00:40 08/13/22 00:40 37 C 84 18 103/61 96 08/13/22 00:30 96 H 17 99 08/13/22 00:30 108/74 08/13/22 00:00 80 16 98 08/13/22 00:00 99/54 L 08/12/22 23:30 82 16 99 08/12/22 23:30 93/52 L 08/12/22 23:04 90 19 99 08/12/22 23:04 101/66 08/12/22 22:30 84 13 95 08/12/22 22:30 87/51 L 08/12/22 22:20 87 15 94 08/12/22 22:10 85 16 94 08/12/22 22:00 89 17 94 08/12/22 22:00 86/48 L 08/12/22 21:50 88 15 94 08/12/22 21:40 88 20 94 08/12/22 21:30 89 25 H 94 08/12/22 21:30 86/48 L 08/12/22 21:20 89 16 95 08/12/22 21:10 94 H 22 94 08/12/22 21:00 94 H 18 96 08/12/22 21:00 90/52 L 08/12/22 20:50 94 H 21 97 08/12/22 20:40 96 H 17 96 08/12/22 20:30 94 H 20 95 08/12/22 20:30 90/51 L 08/12/22 20:20 102 H 17 96 08/12/22 20:10 98 H 15 95 08/12/22 20:01 90/53 L 08/12/22 20:01 102 H 16 96 08/12/22 20:00 103 H 14 96 08/12/22 19:50 105 H 19 94 08/12/22 19:40 109 H 15 95 08/12/22 19:30 111 H 15 92 08/12/22 19:33 95 08/12/22 19:49 37.2 C 115 H 18 92/57 L 94 O2 Del Method 08/13/22 00:40 Room Air 08/13/22 00:40 Room Air 08/13/22 00:40 Room Air 08/13/22 00:30 08/13/22 00:30 08/13/22 00:00 08/13/22 00:00 08/12/22 23:30 08/12/22 23:30 08/12/22 23:04 08/12/22 23:04 08/12/22 22:30 08/12/22 22:30 08/12/22 22:20 08/12/22 22:10 08/12/22 22:00 08/12/22 22:00 08/12/22 21:50 08/12/22 21:40 08/12/22 21:30 08/12/22 21:30 08/12/22 21:20 08/12/22 21:10 08/12/22 21:00 08/12/22 21:00 08/12/22 20:50 08/12/22 20:40 08/12/22 20:30 08/12/22 20:30 08/12/22 20:20 08/12/22 20:10 08/12/22 20:01 08/12/22 20:01 08/12/22 20:00 08/12/22 19:50 08/12/22 19:40 08/12/22 19:30 08/12/22 19:33 Room Air 08/12/22 19:49 Room Air Laboratory Results 08/13/22 08/13/22 08/12/22 Range/Units 05:14 05:14 21:01 WBC 5.46 (4.8-10.8) K/ul RBC 3.11 L (3.93-5.22) M/uL Hgb 10.5 L (12.0-16.0) g/dl Hct 30.8 L (34.1-44.9) % MCV 99.0 (80.0-100.0) fL MCH 33.8 (25.0-34.0) pg MCHC 34.1 (32.0-36.0) g/dL RDW Std Deviation 48.6 H (36.4-46.3) fL RDW Coeff of Rajesh 13.3 (11.5-14.5) % Plt Count 133 (130-400) K/uL MPV 11.4 (9.4-12.3) fL Immature Gran % (Auto) 0.4 % Neut % (Auto) 80.9 % Lymph % (Auto) 9.2 % Collier % (Auto) 9.3 % Eos % (Auto) 0.0 % Baso % (Auto) 0.2 % Neut # (Auto) 4.42 (1.4-6.5) K/uL Lymph # (Auto) 0.50 L (1.2-3.4) K/uL Collier # (Auto) 0.51 (0.24-0.82) K/uL Eos # (Auto) 0.00 (0-0.50) K/uL Baso # (Auto) 0.01 (0-0.2) K/uL Immature Gran # (Auto) 0.02 (0.00-0.02) K/uL Platelet Estimate Normal (Normal) PT (9.0-12.0) Seconds INR (0.9-1.1) Sodium 137 (136-145) mmol/L Potassium 3.9 (3.5-5.1) mmol/L Chloride 109 H (98-107) mmol/L Carbon Dioxide 25 (21-32) mmol/L Anion Gap 3 (3-11) BUN 12 (6-23) mg/dl Creatinine 0.78 (0.6-1.2) mg/dl Est Cr Clr Drug Dosing 53.7 Est GFR ( Amer) 91.2 ml/min Est GFR (Non-Af Amer) 78.7 ml/min BUN/Creatinine Ratio 15.4 (10-20) Glucose 125 H (70-99(Fasting)) mg/dl Calcium 6.7 L (8.5-10.1) mg/dl Magnesium 1.9 (1.7-2.4) mg/dl Total Bilirubin (0.2-1.0) mg/dl AST (13-39) U/L ALT (7-52) U/L Alkaline Phosphatase (34-104) U/L Total Protein (6.0-8.3) gm/dl Albumin (3.4-5.0) gm/dl Globulin (2.5-4.0) gm/dl Albumin/Globulin Ratio (0.9-2) Lipase (11-82) U/L TSH 0.810 (0.300-4.500) uIu/ml SARS-CoV-2 (PCR) (Negative) Influenza Type A (PCR) (Neg) Influenza Type B (PCR) (Neg) RSV (RT-PCR) (Neg) 08/12/22 08/12/22 08/12/22 Range/Units 19:40 19:40 19:40 WBC (4.8-10.8) K/ul RBC (3.93-5.22) M/uL Hgb (12.0-16.0) g/dl Hct (34.1-44.9) % MCV (80.0-100.0) fL MCH (25.0-34.0) pg MCHC (32.0-36.0) g/dL RDW Std Deviation (36.4-46.3) fL RDW Coeff of Rajesh (11.5-14.5) % Plt Count (130-400) K/uL MPV (9.4-12.3) fL Immature Gran % (Auto) % Neut % (Auto) % Lymph % (Auto) % Collier % (Auto) % Eos % (Auto) % Baso % (Auto) % Neut # (Auto) (1.4-6.5) K/uL Lymph # (Auto) (1.2-3.4) K/uL Collier # (Auto) (0.24-0.82) K/uL Eos # (Auto) (0-0.50) K/uL Baso # (Auto) (0-0.2) K/uL Immature Gran # (Auto) (0.00-0.02) K/uL Platelet Estimate (Normal) PT 11.4 (9.0-12.0) Seconds INR 1.1 (0.9-1.1) Sodium 132 L (136-145) mmol/L Potassium 4.4 (3.5-5.1) mmol/L Chloride 100 (98-107) mmol/L Carbon Dioxide 26 (21-32) mmol/L Anion Gap 6 (3-11) BUN 15 (6-23) mg/dl Creatinine 0.95 (0.6-1.2) mg/dl Est Cr Clr Drug Dosing Not Reportable Est GFR ( Amer) 71.8 ml/min Est GFR (Non-Af Amer) 62.0 ml/min BUN/Creatinine Ratio 15.8 (10-20) Glucose 126 H (70-99(Fasting)) mg/dl Calcium 7.9 L (8.5-10.1) mg/dl Magnesium 1.9 (1.7-2.4) mg/dl Total Bilirubin 2.6 H (0.2-1.0) mg/dl AST 199 H (13-39) U/L ALT 159 H (7-52) U/L Alkaline Phosphatase 247 H (34-104) U/L Total Protein 6.6 (6.0-8.3) gm/dl Albumin 3.5 (3.4-5.0) gm/dl Globulin 3.1 (2.5-4.0) gm/dl Albumin/Globulin Ratio 1.1 (0.9-2) Lipase < 3 L (11-82) U/L TSH (0.300-4.500) uIu/ml SARS-CoV-2 (PCR) (Negative) Influenza Type A (PCR) (Neg) Influenza Type B (PCR) (Neg) RSV (RT-PCR) (Neg) 08/12/22 08/12/22 Range/Units 19:40 19:22 WBC 8.09 (4.8-10.8) K/ul RBC 3.87 L (3.93-5.22) M/uL Hgb 13.0 (12.0-16.0) g/dl Hct 38.0 (34.1-44.9) % MCV 98.2 (80.0-100.0) fL MCH 33.6 (25.0-34.0) pg MCHC 34.2 (32.0-36.0) g/dL RDW Std Deviation 46.7 H (36.4-46.3) fL RDW Coeff of Rajesh 13.2 (11.5-14.5) % Plt Count 189 (130-400) K/uL MPV 11.2 (9.4-12.3) fL Immature Gran % (Auto) 0.4 % Neut % (Auto) 92.0 % Lymph % (Auto) 2.2 % Collier % (Auto) 5.3 % Eos % (Auto) 0.0 % Baso % (Auto) 0.1 % Neut # (Auto) 7.44 H (1.4-6.5) K/uL Lymph # (Auto) 0.18 L (1.2-3.4) K/uL Collier # (Auto) 0.43 (0.24-0.82) K/uL Eos # (Auto) 0.00 (0-0.50) K/uL Baso # (Auto) 0.01 (0-0.2) K/uL Immature Gran # (Auto) 0.03 H (0.00-0.02) K/uL Platelet Estimate (Normal) PT (9.0-12.0) Seconds INR (0.9-1.1) Sodium (136-145) mmol/L Potassium (3.5-5.1) mmol/L Chloride (98-107) mmol/L Carbon Dioxide (21-32) mmol/L Anion Gap (3-11) BUN (6-23) mg/dl Creatinine (0.6-1.2) mg/dl Est Cr Clr Drug Dosing Est GFR ( Amer) ml/min Est GFR (Non-Af Amer) ml/min BUN/Creatinine Ratio (10-20) Glucose (70-99(Fasting)) mg/dl Calcium (8.5-10.1) mg/dl Magnesium (1.7-2.4) mg/dl Total Bilirubin (0.2-1.0) mg/dl AST (13-39) U/L ALT (7-52) U/L Alkaline Phosphatase (34-104) U/L Total Protein (6.0-8.3) gm/dl Albumin (3.4-5.0) gm/dl Globulin (2.5-4.0) gm/dl Albumin/Globulin Ratio (0.9-2) Lipase (11-82) U/L TSH (0.300-4.500) uIu/ml SARS-CoV-2 (PCR) NEGATIVE (Negative) Influenza Type A (PCR) Negative (Neg) Influenza Type B (PCR) Negative (Neg) RSV (RT-PCR) Negative (Neg) Medications Administered Current Inpatient Medications Apixaban (Apixaban 2.5 Mg Tab) 1.25 mg PO BID [facility] Stop: 09/12/22 00:48 Last Admin: 08/13/22 03:00 Dose: Not Given Calcium/Vitamin D (Calcium 600mg + Vit D 400 Iu Tab) 2 tab PO DAILY [facility] Stop: 09/12/22 08:59 Gabapentin (Gabapentin 300 Mg Cap) 300 mg PO TID [facility] Stop: 09/12/22 08:59 Hydromorphone HCl (Hydromorphone Inj 0.5 Mg/0.5 Ml Syr) 0.5 mg IV Q6H PRN PRN Reason: Severe Pain Stop: 08/27/22 00:48 Last Admin: 08/13/22 01:35 Dose: 0.5 mg Dextrose/Sodium Chloride (D5w And Nss) 1,000 mls @ 100 mls/hr IV .Q10H [facility]; Protocol Stop: 09/12/22 00:48 Last Admin: 08/13/22 00:49 Dose: 100 mls/hr Loratadine (Loratadine 10 Mg Tab) 10 mg PO QAM [facility] Stop: 09/12/22 08:59 Midodrine (Midodrine Hcl 2.5 Mg Tab) 5 mg PO QAM [facility] Stop: 09/12/22 08:59 Multivitamins/Minerals (Cerovite Adv Formula Tab) 1 tab PO QAM [facility] Stop: 09/12/22 08:59 Ondansetron HCl (Ondansetron Inj 2 Mg/Ml 2 Ml Vial) 4 mg IV Q6H PRN PRN Reason: Nausea Stop: 09/12/22 00:48 Oxycodone HCl (Oxycodone Hcl Ir 5 Mg Tab (Immediate Release)) 5 mg PO Q6H PRN PRN Reason: Moderate Pain Stop: 08/27/22 00:48 Last Admin: 08/13/22 04:25 Dose: 5 mg Pantoprazole Sodium (Pantoprazole 40 Mg Tab) 40 mg PO QAM [facility] Stop: 09/12/22 08:59 Polyethylene Glycol (Polyethylene (Miralax) 17 Gm Pack) 17 gm PO DAILY PRN PRN Reason: Constipation Stop: 09/12/22 00:48
--- NOTE | 2022-08-13 08:13 | XRay Report ---
XR ankle LT min 3V routine, XR foot LT min 3V routine CLINICAL HISTORY: Left ankle and foot pain. COMPARISON STUDY: None. FINDINGS: Mild soft tissue swelling within the left ankle. No acute fracture or dislocation within th e left ankle or left foot. Probable old, healed distal fibular fracture. The Lisfranc joint is intact . The bones are osteopenic. Mild degenerative changes within the left foot. Patchy sclerosis within t he base of the left fifth metatarsal also favors an old, healed fracture. Small plantar heel spur. IMPRESSION: 1. No acute fractures within the left ankle or left foot. 2. Mild soft tissue swelling within the left ankle. 3. Old, healed fractures within the distal fibula and base of the left fifth metatarsal. ACT 112: Negative or not required by law. Electronically signed by: Rbobi Pereyra M.D. 08/13/2022 8:12 AM
--- NOTE | 2022-08-13 08:27 | History and Physical Report ---
DATE OF ADMISSION: 08/12/2021. CHIEF COMPLAINT: Nausea, vomiting, back pain. HISTORY OF PRESENT ILLNESS: This 67-year-old female with past medical history significant for malignant tumor of the head of the pancreas, metastatic status post chemosurgery and radiation. The patient is status post Whipple procedure at [facility], follows at [facility] every 6 months and also follows locally with Heme/Onc Dr. Ortiz Torres, history of obstructive jaundice, status post biliary stent, BRCA 2 positive, history of hereditary hemorrhagic telangiectasia, history of chronic pulmonary embolism, bilateral lower extremity deep venous thrombosis on Eliquis, history of stroke due to embolism,hx of Left sided weakness from stroke, protein calorie malnutrition, history of chronic kidney disease stage III, history of thrombocytopenia, GERD, presents with nausea, vomiting since yesterday. Today, she had one episode of vomiting.Also she has had ongoing back pain and yesterday had MRI scan done as outpatient for her back pain, results are not back yet. Yesterday, she had some dizziness, but that is now resolved. Denies any abdominal pain currently. She is constipated from the pain medications she is taking for back pain. Denies any blood in stools. Normal bladder movements. Appetite is okay. No chest pain, no shortness of breath, no difficulty swallowing. No headache, no blurred visions, no earache, no runny nose, no sore throat. No cough. Hemodynamically stable. Current blood pressure was somewhat low in the ER, after fluids, improving. ALLERGIES: No known drug allergies. Needs filter for IV fluids. PAST MEDICAL HISTORY: As mentioned above. PAST SURGICAL HISTORY: EGD, EGD with endoscopic ultrasound and ERCP, radiation treatment, Whipple procedure for pancreatic cancer. MEDICATIONS: The patient is on Eliquis 1.5 mg p.o. b.i.d., calcium carbonate plus vitamin D 2 tablets daily, gabapentin 300 mg p.o. t.i.d., hydrocodone/acetaminophen 5/325 mg 1 tablet p.o. q. 6 hours p.r.n. for pain, Claritin 10 mg p.o. daily, midodrine 5 mg p.o. a.m., multivitamins 1 tablet daily, Protonix 40 mg p.o. a.m. FAMILY HISTORY: Significant for BRCA positive. Sister has breast cancer; mother has cancer; brother has melanoma; sister has Osler Alfonso Rachel. Maternal cousin has ovarian cancer, brother has prostate cancer, father has prostate cancer. SOCIAL HISTORY: , no smoking, no alcohol, no drug use. REVIEW OF SYSTEMS: As per HPI. Rest of the review of systems is negative. PHYSICAL EXAMINATION: GENERAL: The patient thin and frail, not in acute distress. VITAL SIGNS: Temperature 37.2, pulse 84, respiratory rate 13, blood pressure 101/51, oxygen 95% on room air. HEENT: Pupils equal, round and reactive to light. Oral mucosa dry. NECK: No JVD. No neck masses. CARDIOVASCULAR: S1 and S2 heard. Regular rate and rhythm. No murmur, no gallop. RESPIRATORY SYSTEM: Normal AP diameter. No accessory muscle use. No wheezing, no crackles. ABDOMEN: Soft, bowel sounds present, nontender, no distention. CENTRAL NERVOUS SYSTEM: Cranial nerves II-XII grossly intact, nonfocal. EXTREMITIES: Left foot dorsal ankle and left dorsal aspect has tenderness, no erythema, swelling seen. LABORATORY DATA: WBC 8.09, hemoglobin 13, hematocrit 38, platelets 189. PT 11.4, INR 1.1. Sodium 132, potassium 4.4, chloride 100, bicarbonate 26, BUN 15, creatinine 0.9, serum glucose 126, calcium 7.9, magnesium 1.9, total bilirubin 2.6, AST 199, ALT 159, alkaline phosphatase 247. Lipase less than 3. TSH is 0.8. SARS-CoV-2 PCR negative. Influenza A and B PCR negative. RSV PCR negative. IMAGING DATA: Chest x-ray, no acute disease in the chest. EKG: Sinus tachycardia at 111. ST-T abnormalities seen. ASSESSMENT AND PLAN: This is a 67-year-old female who presents with nausea, vomiting, ongoing back pain. 1. Nausea and vomiting, elevated LFTs, history of pancreatic cancer. We will get a CT abdomen and pelvis. We will discuss with Heme/Onc Dr. Ortiz Torres who the patient follows locally. Get IV fluids, monitor in the hospital, IV antiemetics prn. We will place her on clear liquid diet for now. 2. Constipation, on stool softeners. The patient is getting pain medication for ongoing back pain and had MRI scan yesterday, results are pending. 3. History of malignancy of head of the pancreas, status post surgery, chemoradiation, follows with [facility] and locally with Heme/Onc. 4. Gastroesophageal reflux disease. Continue Protonix. 5. History of deep venous thrombosis and pulmonary embolism, on Eliquis. 6. History of hereditary hemorrhagic telangiectasia. 7. History of stroke. On Eliquis. 8. Chronic kidney disease stage III, presents with creatinine of 0.9. We will follow the labs. 9. Deep venous thrombosis prophylaxis: On Eliquis. DISPOSITION: Closely monitor in medical floor. PT, OT prior to discharge. Social service to help with discharge planning. Level 1 full code. Job ID: [id number] MTDD
--- NOTE | 2022-08-13 08:32 | XRay Report ---
XR chest 1V portable HISTORY: weakness COMPARISON: Chest 09/01/2020. FINDINGS: The lungs are clear. Cardiac silhouette is normal in size. No pleural effusions. No pneumot horax. IMPRESSION: No acute process. ACT 112: Negative or not required by law. Electronically signed by: Robbi Pereyra M.D. 08/13/2022 8:31 AM
[2022-08-13] MEDS: PANTOprazole 40 MG TAB PO SCH (09:59)
[2022-08-13] MEDS: CEROVITE ADV FORMULA TAB PO SCH (09:59)
[2022-08-13] MEDS: CALCIUM 600MG + VIT D 400 IU TAB PO SCH (09:59)
[2022-08-13] MEDS: GABAPENTIN 300 MG CAP PO SCH ×3 (09:59→20:23)
[2022-08-13] MEDS: LORATADINE 10 MG TAB PO SCH (09:59)
[2022-08-13] MEDS: MIDODRINE HCL 2.5 MG TAB PO SCH (09:59)
[2022-08-13] MEDS ORDERED: OPTIRAY 350 100ml IV ONE (10:24)
--- NOTE | 2022-08-13 10:47 | CT Scan Report ---
ABDOMEN AND PELVIS CT WITH IV CONTRAST CT DOSE: 277.17 mGy.cm HISTORY: elevated lft, n/v, hx of pancreatic cancer TECHNIQUE: Multiaxial CT images of the abdomen and pelvis were performed following the use of intrave nous contrast. A dose lowering technique was utilized adhering to the principles of ALARA. COMPARISON STUDY: Abdomen and pelvis CT 09/01/2020. FINDINGS: Mild dependent changes seen at the lung bases and a trace left pleural effusion. No pneumop eritoneum. No pneumatosis. Postoperative changes again noted within the proximal right femur. An 8 mm sclerotic focus within the L4 vertebral body. This producing measured 5 mm. This raises the possibil ity of a metastatic deposit given the increase in size. Stable 2.3 cm lucent lesion within the L1 rachael tebral body which may represent a hemangioma. Stable patchy area of sclerosis within the left posteri or 10th rib. The bladder is unremarkable. Trace pelvic free fluid. The uterus and bilateral adnexa ar e within normal limits. Mild body wall edema. Postoperative changes consistent with a prior Whipple p rocedure. Mild mesenteric edema is noted. A few prominent mesenteric lymph nodes remain unchanged. Th e small focus of loculated fluid adjacent to the fundus of the stomach. Small amount of pneumobilia i s present. There are severe hepatic steatosis which has progressed. There is an 11 mm partially enhan cing lesion within the right hepatic lobe on image 86. This is stable compared the prior studies and therefore favors a small hemangioma. No new or suspicious hepatic lesions identified at this time. Th e main portal vein is patent. The residual pancreatic tail enhances normally. There is a 13 mm left r enal cyst. Normal right kidney. The adrenal glands and spleen are unremarkable. No pelvic lymphadenop athy. There is abnormal upper right retroperitoneal/retrocrural soft tissue best seen on image 98. Th is is new from the prior study and measures approximately 2.4 x 2.0 cm. This is concerning for metast atic disease/lymphadenopathy. No bowel wall thickening or obstruction. Normal appendix. Multiple scat tered varicosities seen within the abdomen and pelvis. This remains unchanged. There is mild thickeni ng of the distal residual stomach near the anastomosis. This could be due to postoperative change and is similar to the prior study. IMPRESSION: 1. Postoperative changes consistent with prior Whipple procedure again noted. 2. Severe hepatic steatosis which has progressed in the interval. 3. Abnormal upper right retroperitoneal/retrocrural soft tissue density which is new from the prior s tudy and likely represents metastatic disease as lymphadenopathy. 4. Slight increase in size of an 8 mm sclerotic lesion within the L4 vertebral body. This also repres ent a metastatic focus. 5. Trace left pleural effusion. 6. Trace ascites. 7. Mild distal gastric wall thickening, unchanged. This could be due to the postoperative changes. 8. Additional findings as described above. ACT 112: Negative or not required by law. Electronically signed by: Robbi Pereyra M.D. 08/13/2022 10:45 AM
--- NOTE | 2022-08-13 12:46 | Hospitalist Progress Note ---
Date of Service August 13, 2022 Assessment & Plan (1) Nausea & vomiting: Plan 67-year-old lady with PMH of malignant tumor of the head of the pancreas/metastasis status post chemotherapy, radiation, Whipple procedure at [facility] [follows [facility] every [address] Ortiz Torres locally], obstructive jaundice, status post biliary stent, BRCA2 positive, hereditary hemorrhagic telangiectasia, chronic PE/bilateral lower extremity DVT on Eliquis, stroke in October 2019 due to air embolism/patent foramen ovale, left- sided weakness from this stroke, protein calorie malnutrition, CKD stage III, thrombocytopenia, GERD presented to the ED 08/12 with complaint of nausea and vomiting since 1 day [employer]. Patient reports ongoing back pain for few months, no pain control with Vicodin every 8 hours and had recently increased to every 6 hours in the last 1 to 2 weeks prior to arrival. Patient reports being generally constipated at baseline. She is being managed for the following: Nausea and vomiting: Patient has history of pancreatic cancer status post chemotherapy, radiation, Whipple procedure Patient follows [facility] every 6 months, Dr. Ortiz Torres locally. Patient presents with nausea and vomiting for 1 week [employer], had recently increased Vicodin dose to every 6 hours from every 8 hours. Patient complains of constipation at baseline. Admitting imagings: CXRno acute process CTAPsevere hepatic steatosis, abnormal upper right r etroperitoneal/retrocrural soft tissue density which is new from the prior study and likely represents metastatic disease as lymphadenopathy. Slight increase in size of an 8 mm sclerotic lesion within the L4 vertebral body which also represent a metastatic focus. Patient underwent MRI low back at [facility], outpatient chart reviewed, MRI not read as of today morning. Will follow. Status post IV fluid and Zofran with improvement in nausea and vomiting. Patient on clear liquid diet, tolerating. Advance diet as tolerated. Continue with IV fluids and Zofran for now. Monitor and replete electrolytes as appropriate. Failure to thrive: On the background of metastatic cancer history, patient with poor appetite, appears lean/thin/frail with low BMI. Dietitian consult. Mild hyponatremia: Evident at presentation likely secondary to vomiting, resolved. Monitor as needed. Constipation, on stool softener: Likely secondary to narcotic use/need, continue with stool softener as scheduled and prn. Other chronic medical conditions: GERD, DVT and PE, hereditary hemorrhagic telangiectasia, stroke, CKD stage III --- resume home meds as able DVT prophylaxis: On Eliquis Full code Disposition: PT/OT prior to discharge, CM to assist with DC planning. Admission and Anticipated Discharge Date Admission Date: August 12, 2022 Subjective Patient seen and examined at bedside as a follow-up of nausea and vomiting in the background of increased [place] requirement due to ongoing back pain. Of note, patient has history of pancreatic cancer which patient is following up with [facility], and Dr. Ortiz Torres locally. Patient was sitting semiupright in bed, on room air, NAD, reports no new acute event overnight, reports improving nausea and vomiting, still feels weak, denies headache or dizziness or sore throat or cough or other review of symptoms. Reports tolerating diet, advance diet as tolerated. Physical Exam Physical Exam: GENERAL: Alert and oriented x3. NAD, on RA. appears thin/fra il/weak. HEENT: No pallor, no icterus. Pupils equal, round and reactive to light. Oral mucosa moist. NECK: No JVD, no neck masses. HEART: S1 and S2 heard. Regular rate and rhythm. No murmur, no gallop. RESPIRATORY SYSTEM: Normal AP diameter. No accessory muscle use. No wheezing, no crackles. ABDOMEN: Soft, bowel sounds present, nontender, no distention. CENTRAL NERVOUS SYSTEM: No facial droop. Speech is clear. Obeys simple commands. Moves extremities. EXTREMITIES: No edema, no erythema seen. No vertebral tenderness on palpation, no open wounds noted. Results & Data Results & Data ([facility]) Vital Signs (Past 12 Hours) Vital Signs Temp Pulse Pulse Resp BP BP Pulse Ox 08/13/22 10:57 36.9 C 80 18 99/63 L 97 08/13/22 08:56 37 C 81 16 92/55 L 94 08/13/22 07:47 36.9 C 78 16 92/53 L 94 08/13/22 00:40 08/13/22 00:40 08/13/22 00:40 37 C 84 18 103/61 96 08/13/22 00:30 96 H 17 99 08/13/22 00:30 108/74 O2 Del Method 08/13/22 10:57 Room Air 08/13/22 08:56 Room Air 08/13/22 07:47 Room Air 08/13/22 00:40 Room Air 08/13/22 00:40 Room Air 08/13/22 00:40 Room Air 08/13/22 00:30 08/13/22 00:30 (1) Nausea & vomiting Vomiting type: unspecified Qualified Code(s): R11.2 - Nausea with vomiting, unspecified
[2022-08-13] MEDS ORDERED: CYCLOBENZAPRINE HCL 5 MG TAB PO PRN (14:17)
[2022-08-13] MEDS: PANCREAZE (LIPASE 10,500U) CAP PO SCH (16:35)
[2022-08-13] MEDS: DOCUSATE SODIUM 100 MG CAP PO SCH (20:26)
[2022-08-14] MEDS: D5W AND NSS 1,000 ML IV SCH (00:43)
[2022-08-14] MEDS: HYDROmorphone INJ 0.5 MG/0.5 ML SYR IV PRN ×2 (02:27→08:32)
--- NOTE | 2022-08-14 06:17 | Electrocardiogram Report ---
Test Reason : Blood Pressure : / mmHG Vent. Rate : 111 BPM Atrial Rate : 111 BPM P-R Int : 128 ms QRS Dur : 088 ms QT Int : 328 ms P-R-T Axes : 048 086 045 degrees QTc Int : 446 ms Poor data quality, interpretation may be adversely affected Sinus tachycardia RSR' or QR pattern in V1 suggests right ventricular conduction delay Abnormal ECG When compared with ECG of 02-SEP-2020 06:23, Vent. rate has increased BY 60 BPM T wave inversion more evident in Anterior leads Confirmed by Glen Aldana ([id number]) on 08/14/2022 6:17:26 AM Referred By: REFERRED SELF Confirmed By:Glen Aldana
[2022-08-14 07:40] LABS: Hematocrit (blood only) 34.4 % (34.1-44.9); Hemoglobin 11.5 g/dl (12.0-16.0); Mean Corpuscular Hemoglobin 33.7 pg (25.0-34.0); Mean Corpuscular Hgb Conc 33.4 g/dL (32.0-36.0); Mean Corpuscular Volume 100.9 fL (80.0-100.0); Mean Platelet Volume 11.3 fL (9.4-12.3); Platelet Count 121 K/uL (130-400); RDW Coefficient of Variation 13.3 % (11.5-14.5); RDW Standard Deviation 49.7 fL (36.4-46.3); Red Blood Count 3.41 M/uL (3.93-5.22); White Blood Count 4.81 K/ul (4.8-10.8)
[2022-08-14 07:50] LABS: BUN Creatinine Ratio 9.2 (10-20); Calcium 7.2 mg/dl (8.5-10.1); Creatinine Clr Calc Pharmacy 55.1 ml/min; Est GFR (African American) 94.1 ml/min; Est GFR (Non-African American) 81.2 ml/min; Magnesium 1.8 mg/dl (1.7-2.4); Potassium 4.4 mmol/L (3.5-5.1)
[2022-08-14] MEDS: PANCREAZE (LIPASE 10,500U) CAP PO SCH ×3 (08:31→17:01)
[2022-08-14] MEDS: MIDODRINE HCL 2.5 MG TAB PO SCH (08:40)
[2022-08-14] MEDS: DOCUSATE SODIUM 100 MG CAP PO SCH ×3 (08:40→21:37)
[2022-08-14] MEDS: PANTOprazole 40 MG TAB PO SCH (08:40)
[2022-08-14] MEDS: CEROVITE ADV FORMULA TAB PO SCH (08:40)
[2022-08-14] MEDS: CALCIUM 600MG + VIT D 400 IU TAB PO SCH (08:40)
[2022-08-14] MEDS: LORATADINE 10 MG TAB PO SCH (08:40)
[2022-08-14] MEDS: GABAPENTIN 300 MG CAP PO SCH ×3 (08:41→21:37)
[2022-08-14] MEDS: APIXABAN 2.5 MG TAB PO SCH ×2 (08:41→21:36)
[2022-08-14] MEDS ORDERED: SODIUM PHOSPHATE 3 MMOL/1 ML INFUSION IV STA (09:10)
[2022-08-14] MEDS ORDERED: SODIUM PHOSPHATE 15 MMOL in SODIUM CHLORIDE 0.9% 250 ML IV ONE (09:30)
--- NOTE | 2022-08-14 12:10 | Discharge Summary ---
Date of Service August 15, 2022 Admission HPI Per Admitting Provider DATE OF ADMISSION: 08/12/2021. CHIEF COMPLAINT: Nausea, vomiting, back pain. HISTORY OF PRESENT ILLNESS: This 67-year-old female with past medical history significant for malignant tumor of the head of the pancreas, metastatic status post chemosurgery and radiation. The patient is status post Whipple procedure at [facility], follows at [facility] every 6 months and also follows locally with Heme/Onc Dr. Ortiz Torres, history of obstructive jaundice, status post biliary stent, BRCA 2 positive, history of hereditary hemorrhagic telangiectasia, history of chronic pulmonary embolism, bilateral lower extremity deep venous thrombosis on Eliquis, history of stroke due to embolism,hx of Left sided weakness from stroke, protein calorie malnutrition, history of chronic kidney disease stage III, history of thrombocytopenia, GERD, presents with nausea, vomiting since yesterday. Today, she had one episode of vomiting.Also she has had ongoing back pain and yesterday had MRI scan done as outpatient for her back pain, results are not back yet. Yesterday, she had some dizziness, but that is now resolved. Denies any abdominal pain currently. She is constipated from the pain medications she is taking for back pain. Denies any blood in stools. Normal bladder movements. Appetite is okay. No chest pain, no shortness of breath, no difficulty swallowing. No headache, no blurred visions, no earache, no runny nose, no sore throat. No cough. Hemodynamically stable. Current blood pressure was somewhat low in the ER, after fluids, improving. ALLERGIES: No known drug allergies. Needs filter for IV fluids. PAST MEDICAL HISTORY: As mentioned above. PAST SURGICAL HISTORY: EGD, EGD with endoscopic ultrasound and ERCP, radiation treatment, Whipple procedure for pancreatic cancer. MEDICATIONS: The patient is on Eliquis 1.5 mg p.o. b.i.d., calcium carbonate plus vitamin D 2 tablets daily, gabapentin 300 mg p.o. t.i.d., hydrocodone/acetaminophen 5/325 mg 1 tablet p.o. q. 6 hours p.r.n. for pain, Claritin 10 mg p.o. daily, midodrine 5 mg p.o. a.m., multivitamins 1 tablet daily, Protonix 40 mg p.o. a.m. FAMILY HISTORY: Significant for BRCA positive. Sister has breast cancer; mother has cancer; brother has melanoma; sister has Osler Alfonso Rachel. Maternal cousin has ovarian cancer, brother has prostate cancer, father has prostate cancer. SOCIAL HISTORY: , no smoking, no alcohol, no drug use. REVIEW OF SYSTEMS: As per HPI. Rest of the review of systems is negative. Admission Exam Per Admitting Provider GENERAL: The patient thin and frail, not in acute distress. VITAL SIGNS: Temperature 37.2, pulse 84, respiratory rate 13, blood pressure 101/51, oxygen 95% on room air. HEENT: Pupils equal, round and reactive to light. Oral mucosa dry. NECK: No JVD. No neck masses. CARDIOVASCULAR: S1 and S2 heard. Regular rate and rhythm. No murmur, no gallop. RESPIRATORY SYSTEM: Normal AP diameter. No accessory muscle use. No wheezing, no crackles. ABDOMEN: Soft, bowel sounds present, nontender, no distention. CENTRAL NERVOUS SYSTEM: Cranial nerves II-XII grossly intact, nonfocal. EXTREMITIES: Left foot dorsal ankle and left dorsal aspect has tenderness, no erythema, swelling seen. Principal Diagnosis Nausea, vomiting Failure to thrive Mild hyponatremia Constipation Low back pain on [place] Discharge Exam GENERAL: Alert and oriented x3. NAD, on RA. subjectively looks better. HEENT: No pallor, no icterus. Pupils equal, round and reactive to light. Oral mucosa moist. NECK: No JVD, no neck masses. HEART: S1 and S2 heard. Regular rate and rhythm. No murmur, no gallop. RESPIRATORY SYSTEM: Normal AP diameter. No accessory muscle use. No wheezing, no crackles. ABDOMEN: Soft, bowel sounds present, nontender, no distention. CENTRAL NERVOUS SYSTEM: No facial droop. Speech is clear. Obeys simple commands. Moves extremities. EXTREMITIES: No edema, no erythema seen. No vertebral tenderness on palpation, no open wounds noted. Discharge Data Allergies Allergy/AdvReac Type Severity Reaction Status Date / Time FILTER REQUIRED WITH IV AdvReac Unknown Uncoded 08/12/22 22:21 FLUIDS Consultations 08/12/22 21:46 ED Decision to Admit Stat Ordered Studies 08/13/22 00:49 CT Abd and Pelvis [CT abd pelvis IV con only] Routine Hospital Course (1) Nausea & vomiting: Plan 67-year-old lady with PMH of malignant tumor of the head of the pancreas/metastasis status post chemotherapy, radiation, Whipple procedure at [facility] [follows [facility] every [address] Ortiz Torres locally], obstructive jaundice, status post biliary stent, BRCA2 positive, hereditary hemorrhagic telangiectasia, chronic PE/bilateral lower extremity DVT on Eliquis, stroke in October 2019 due to air embolism/patent foramen ovale, left- sided weakness from this stroke, protein calorie malnutrition, CKD stage III, thrombocytopenia, GERD presented to the ED 08/12 with complaint of nausea and vomiting since 1 day [employer]. Patient reports ongoing back pain for few months, no pain control with Vicodin every 8 hours and had recently increased to every 6 hours in the last 1 to 2 weeks prior to arrival. Patient reports being generally constipated at baseline. She was managed for the following: Nausea and vomiting: Patient has history of pancreatic cancer status post chemotherapy, radiation, Whipple procedure Patient follows [facility] every 6 months, Dr. Ortiz Torres locally. Patient presents with nausea and vomiting for 1 week [employer], had recently increased Vicodin dose to every 6 hours from every 8 hours. Patient complains of constipation at baseline. Admitting imagings: CXRno acute process CTAPsevere hepatic steatosis, abnormal upper right retroperitoneal/retrocrural soft tissue density which is new from the prior study and likely represents metastatic disease as lymphadenopathy. Slight increase in size of an 8 mm sclerotic lesion within the L4 vertebral body which also represent a metastatic focus. Patient underwent MRI low back at [facility], outpatient chart reviewed, --suggestive of mild mixed degeneration. Status post IV fluid and Zofran with improvement in nausea and vomiting. Patient with no further nausea and vomiting, tolerating diet well. Electrolytes has been more stable. Pt made aware of MRI low back and CTAP findings and discrepancy in findings (see above) and need for PET scan as OP. D/w Pt's OP Oncololy Dr. Torres, made aware of imaging findings, plan for PET scan once Discharged. Failure to thrive: On the background of metastatic pancreatic cancer history, patient with poor appetite, appears lean/thin with low BMI. Dietitian consult. Creon restarted, pt was on it in the past. Mild hyponatremia: Evident at presentation likely secondary to vomiting, resolved. Monitor as needed. Constipation, on stool softener: Likely secondary to narcotic use/need, continue with stool softener as scheduled and prn. Other chronic medical conditions: GERD, DVT and PE, hereditary hemorrhagic telangiectasia, stroke, CKD stage III --- resume home meds as able Full code Disposition: PT/OT prior to discharge, CM to assist with DC planning. Pt being discharged w/ following instructions at point of DC: Follow-up with your primary care physician in a week time and likely you will need blood labs CBC/CMP/Magnesium/phosphorus. Follow-up with your oncology doctor within a week time upon discharge, as discussed at the bedside, you will likely get PET CT scan as an outpatient. For your nausea and vomiting, you can use nausea medications as needed. Also you can use lwze-oyc-jggbdof electrolyte solution such as Pedialyte to replace for the amount of fluid lost during vomiting. Maintain bowel regimen while you are requiring opiate pain medication for your low back pain. You can get laxatives [id number]-onujugc. For your low back pain, you were discharged with few days worth of [place], maintain follow-up with the PCP for ongoing pain management/evaluation/prescription. Also you can use tqnl-ntw-vdvxzmk lidocaine patch 4% for your low back pain as needed. Take your medications as prescribed. Home Health Attestation I certify that this patient is under my care and that I, or a physicians chemistry research assistant working with me, had a face to-face encounter that meets the home health rdav-hq-dopy encounter requirements with this patient. The encounter with the patient was in whole, or in part, for the following medical condition, which is the primary reason for home health care (list medical condition): I certify that, based on my findings, the following services are medically necessary home health services: My clinical findings support the need for the above services because: Further, I certify that my clinical findings support that this patient is homebound (i.e. absences from home require considerable and taxing effort and are for medical reasons or gnosticism services or infrequently or of short duration when for other reasons) because: Certification for Home Health Services: Based on the above findings, I certify that this patient is confined to the home and needs intermittent long-term care, physical therapy and/or speech therapy or continues to need occupational therapy. The patient is under my care, and I have initiated the establishment of the plan of care. This patient will be followed by a physician who will periodically review the plan of care. Total Time Total Time Spent Total Time Spent (In Minutes): 45 Discharge Plan Discharge Items Patient Disposition: Home - Self-Care Reason For Visit: N / V Discharge Diagnosis: Nausea, vomiting Failure to thrive Mild hyponatremia Constipation Low back pain on [place] Activity: Resume your previous activity Non-emergency contact: Primary Care Provider Call non-emergency contact if: you have any medication questions, your symptoms worsen and your temperature is above 101 Follow-up/Referrals: Michelle Torres MD [Primary Care Provider] - (Date & Time 08/21/2022 10:00 AM Provider Loc Bl[place] PA-C Department General Internal Medicine [facility] ) Diet: Regular Addtl Attending Provider Instructions: Follow-up with your primary care physician in a week time and likely you will need blood labs CBC/CMP/Magnesium/phosphorus. Follow-up with your oncology doctor within a week time upon discharge, as discussed at the bedside, you will likely get PET CT scan as an outpatient. For your nausea and vomiting, you can use nausea medications as needed. Also you can use dmpc-ctm-mkfnajk electrolyte solution such as Pedialyte to replace for the amount of fluid lost during vomiting. Maintain bowel regimen while you are requiring opiate pain medication for your low back pain. You can get laxatives [id number]-[id number]. For your low back pain, you were discharged with few days worth of [place], maintain follow-up with the PCP for ongoing pain management/evaluation/prescription. Also you can use rkdc-qxf-hsleths lidocaine patch 4% for your low back pain as needed. Take your medications as prescribed. Pending Studies at Discharge: No Stand-Alone Forms: My [facility] [employer], Smoking Cessation Medications and DC Order Prescriptions: New cyclobenzaprine 5 mg Tablet 5 mg PO TID PRN (Reason: spasms/low back pain) Qty: 30 0RF ondansetron 4 mg tablet,disintegrating 4 mg PO Q8H PRN (Reason: nausea and vomiting) Qty: 30 0RF Creon 36,000-114,000- 180,000 unit Capsule,Delayed Release(Dr/Ec) 1 cap PO WM Qty: 90 0RF hydromorphone [Dilaudid] 2 mg tablet 2 mg PO Q6H PRN (Reason: pain (scale score 7-10)) Qty: 28 0RF Continued pantoprazole [Protonix] [address] for susp in packet 40 mg PO QAM Eliquis 2.5 mg tablet 1.25 mg PO BID loratadine [Claritin] 10 mg Tablet 10 mg PO QAM gabapentin 100 mg capsule 300 mg PO TID midodrine 5 mg tablet 5 mg PO QAM Centrum Silver Ultra Women's Tablet 1 tab PO QAM calcium carbonate-vitamin D3 [Calcium 600 + D(3)] 600 mg-10 mcg (400 unit) Tablet 2 tab PO DAILY Discontinued hydrocodone-acetaminophen 5-325 mg tablet 1 tab PO Q6 PRN (Reason: Moderate Pain (Scale Score 5-6)) Discharge Orders: Discharge Order (Routine); Ordered 08/15/22 Ordered By: Karma Null Admission Data Admit Date/Time: 08/12/22 23:34 Attending Provider: Karma Null Admit Provider: Justin Torre Primary Care Provider: Michelle Torres Other Providers: Justin Torre ; [facility],Home Health
--- NOTE | 2022-08-14 13:45 | Hospitalist Progress Note ---
Date of Service August 14, 2022 Assessment & Plan (1) Nausea & vomiting: Plan 67-year-old lady with PMH of malignant tumor of the head of the pancreas/metastasis status post chemotherapy, radiation, Whipple procedure at [facility] [follows [facility] every [address] Ortiz Torres locally], obstructive jaundice, status post biliary stent, BRCA2 positive, hereditary hemorrhagic telangiectasia, chronic PE/bilateral lower extremity DVT on Eliquis, stroke in October 2019 due to air embolism/patent foramen ovale, left- sided weakness from this stroke, protein calorie malnutrition, CKD stage III, thrombocytopenia, GERD presented to the ED 08/12 with complaint of nausea and vomiting since 1 day [employer]. Patient reports ongoing back pain for few months, no pain control with Vicodin every 8 hours and had recently increased to every 6 hours in the last 1 to 2 weeks prior to arrival. Patient reports being generally constipated at baseline. She is being managed for the following: Nausea and vomiting: Patient has history of pancreatic cancer status post chemotherapy, radiation, Whipple procedure Patient follows [facility] every 6 months, Dr. Ortiz Torres locally. Patient presents with nausea and vomiting for 1 week [employer], had recently increased Vicodin dose to every 6 hours from every 8 hours. Patient complains of constipation at baseline. Admitting imagings: CXRno acute process CTAPsevere hepatic steatosis, abnormal upper right r etroperitoneal/retrocrural soft tissue density which is new from the prior study and likely represents metastatic disease as lymphadenopathy. Slight increase in size of an 8 mm sclerotic lesion within the L4 vertebral body which also represent a metastatic focus. Patient underwent MRI low back at [facility], outpatient chart reviewed, --suggestive of mild mixed degeneration. Status post IV fluid and Zofran with improvement in nausea and vomiting. Patient with no further nausea and vomiting, tolerating diet well. Electrolytes has been more stable. Pt made aware of MRI low back and CTAP findings and discrepancy in findings (see above) and need for PET scan as OP. D/w Pt's OP Oncology Dr. Torres, made aware of imaging findings, plan for PET scan once Discharged. Failure to thrive: On the background of metastatic pancreatic cancer history, patient with poor appetite, appears lean/thin with low BMI. Dietitian consult. Creon restarted, pt was on it in the past. Mild hyponatremia: Evident at presentation likely secondary to vomiting, resolved. Monitor as needed. Constipation, on stool softener: Likely secondary to narcotic use/need, continue with stool softener as scheduled and prn. Other chronic medical conditions: GERD, DVT and PE, hereditary hemorrhagic telangiectasia, stroke, CKD stage III --- resume home meds as able DVT prophylaxis: On Eliquis Full code Disposition:PT cleared for home, pt sad/upset from the news of possible metastatic lesions noted in CTAP, would like to stay today, possible dc anabelle. Admission and Anticipated Discharge Date Admission Date: August 12, 2022 Subjective Patient seen and examined at bedside as a follow-up of nausea and vomiting in the background of increased [place] requirement due to ongoing back pain. Of note, patient has history of pancreatic cancer which patient is following up with [facility], and Dr. Ortiz Torres locally. Patient was sitting semiupright in bed, on room air, NAD, reports no new acute event overnight, reports improving nausea and vomiting, is tolerating diet, denies headache or dizziness or sore throat or cough or other review of symptoms. Advance diet as tolerated. Physical Exam Physical Exam: GENERAL: Alert and oriented x3. NAD, on RA. subjectively looks better. HEENT: No pallor, no icterus. Pupils equal, round and reactive to light. Oral mucosa moist. NECK: No JVD, no neck masses. HEART: S1 and S2 heard. Regular rate and rhythm. No murmur, no gallop. RESPIRATORY SYSTEM: Normal AP diameter. No accessory muscle use. No wheezing, no crackles. ABDOMEN: Soft, bowel sounds present, nontender, no distention. CENTRAL NERVOUS SYSTEM: No facial droop. Speech is clear. Obeys simple commands. Moves extremities. EXTREMITIES: No edema, no erythema seen. No vertebral tenderness on palpation, no open wounds noted. Results & Data Results & Data ([facility]) Vital Signs (Past 12 Hours) Vital Signs Temp Pulse Pulse Resp BP BP Pulse Ox 08/14/22 13:13 37.2 C 86 16 105/66 97 08/14/22 11:41 37.2 C 93 H 18 108/70 95 08/14/22 08:00 08/14/22 07:57 37.3 C 95 H 18 110/70 96 08/14/22 01:56 105/64 O2 Del Method 08/14/22 13:13 Room Air 08/14/22 11:41 Room Air 08/14/22 08:00 Room Air 08/14/22 07:57 Room Air 08/14/22 01:56 (1) Nausea & vomiting Vomiting type: unspecified Qualified Code(s): R11.2 - Nausea with vomiting, unspecified
[2022-08-14] MEDS: HYDROmorphone HCL 2 MG TAB PO PRN ×2 (17:01→23:03)
[2022-08-15] MEDS: HYDROmorphone HCL 2 MG TAB PO PRN ×2 (05:46→12:51)
[2022-08-15 08:07] VITALS: TEMP 98.8; O2SAT 96
[2022-08-15] MEDS: PANCREAZE (LIPASE 10,500U) CAP PO SCH ×2 (08:39→12:06)
[2022-08-15] MEDS: CALCIUM 600MG + VIT D 400 IU TAB PO SCH (08:39)
[2022-08-15] MEDS: CEROVITE ADV FORMULA TAB PO SCH (08:39)
[2022-08-15] MEDS: PANTOprazole 40 MG TAB PO SCH (08:40)
[2022-08-15] MEDS: MIDODRINE HCL 2.5 MG TAB PO SCH (08:40)
[2022-08-15] MEDS: LORATADINE 10 MG TAB PO SCH (08:40)
[2022-08-15] MEDS: DOCUSATE SODIUM 100 MG CAP PO SCH (08:40)
[2022-08-15] MEDS: GABAPENTIN 300 MG CAP PO SCH (08:40)
[2022-08-15] MEDS: APIXABAN 2.5 MG TAB PO SCH (08:40)
[2022-08-15 12:09] VITALS: BP 105/66; PULSE 69
== END 2022-08-15 13:19 | disposition home health service (06) | DRG 640 ==
LOC: ED 19:16 → SUATTDRO 23:34 → 3W 23:34

== ENCOUNTER 2022-12-10 10:58 | Inpatient (IN) ==
[2022-12-10] MEDS ORDERED: SODIUM CHLORIDE 0.9% 500 ML IV STA (11:33)
--- NOTE | 2022-12-10 11:36 | Emergency Department Note ---
Impression & Plan Neutropenia ADMIT ED Provider Note HPI: The patient is a 67-year-old female with history of metastatic pancreatic cancer, status post Whipple procedure at [facility], history of pulmonary embolism currently on Eliquis, who presents the emergency department with a chief complaint of syncope. Patient states that last evening as well as 1 episode this morning she "passed out" when she was on the toilet, states that she has had some diarrhea. Her was assisting her with both events. He is not at the bedside currently. Patient states she does not remember the events this morning in their entirety. She denies any chest pain or shortness of breath but states she has been very fatigued over the past several weeks that she has been on chemotherapy for metastatic pancreatic cancer. On arrival here to the ED the patient is alert, she is hemodynamically stable, she is afebrile on presentation. ROS: - Per HPI *Outpatient medications and allergy history reviewed. *Pertinent external medical records reviewed. 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 physical: (As interpreted by myself): - An order was placed for continuous cardiac monitoring - Patient was noted to be in sinus rhythm with a rate of 85 EKG: (As interpreted by myself): Rate: 74 Rhythm: Apparent sinus rhythm with baseline artifact Intervals: Within normal limits ST changes: No ST elevation Time: 1110 Interventions provided in ED: -IV fluid bolus, IV vancomycin, IV cefepime Differential Diagnosis: Acute coronary syndrome, sepsis of unknown origin in the setting of immunocompromise state with neutropenia, metastatic disease to the brain secondary to history of pancreatic cancer, arrhythmia to include SVT, ventricular tachycardia amongst other potential arrhythmias, amongst other potential pathologies. Medical Decision Making: Patient presented to the emergency department after several episodes of syncope, later arrives and states she had 3 episodes last night when she was going to the bathroom and 1 more today. Shortly after the patient arrived IV was established and lab work obtained, patient was placed on orthotic aide, patient is alert and oriented and without focal deficits on my initial assessment but does appear frail and weak in conjunction with her history of metastatic pancreatic cancer currently on chemotherapy. Lab work obtained shows evidence of leukopenia with white blood cell count of 0.67, see 510, platelet count reduced at 82, CMP does not show any critical electrolyte abnormalities, troponin is negative, procalcitonin is fairly low at 0.14. Chest x-ray shows possible small bilateral consolidations. COVID-19 testing and influenza testing are negative, urinalysis is pending. Patient presentation was discussed with her hematology/oncology provider, Dr. Torres, recommended obtaining CT imaging of the head to make sure there is no evidence of metastatic disease in the setting of recent syncopal events, this was obtained and shows no evidence of any metastatic lesions. Given the patient's lab abnormalities and possible pneumonia on x-ray imaging, she was t reated with broad-spectrum antibiotics with vancomycin and cefepime. She will be admitted following blood cultures for follow-up given her immunocompromise state. Case was discussed with the on-call midlevel provider for [facility], patient was placed for admission in stable condition for further management. Consultants: [facility] service Disposition discussion held by myself with: Patient and at the bedside Diagnosis: 1. neutropenia, acute 2. History of metastatic pancreatic cancer 3. Syncope 4. Bibasilar pneumonia 5. Leukopenia, acute Disposition: Admission Josh Leroy DO Emergency Medicine Past Med/Surg History Medical History Anemia Closed fracture of right hip requiring operative repair with malunion DVT prophylaxis Elevated lactic acid level Elevated LFTs Hemiplegia affecting left dominant side Hypovolemic shock Neutropenia Neutropenic fever Pancreatic cancer Patent foramen ovale Pneumocephalus Pulmonary embolism Severe malnutrition Stroke Telangiectasia Thrombocytopenia Transaminitis Urinary tract infection Surgical History History of ERCP 07/05/2019 - biliary stricture, adenocarcinoma on cytology 08/28/2019 - biliary stricture, stent replaced History of esophagogastroduodenoscopy (EGD) EGD with EUS. 07/10/2019. pancreatic adenocarcinoma, enlarged lymph node, GB sludge Family History Mother , age 86 C. diff Cancer possible pancreas Father , age 82 prostate cancer No problems noted. Brother Cancer prostate met cancer and melanoma Brother Cancer melanoma Sister Ofzwu-Mwtih-Vcxky disease Sister No problems noted. Son No problems noted. Son No problems noted. 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 Feels Safe at Home: Yes and No Is there a partner from a previous relationship who is making you feel unsafe now?: No Childhood Exposure to Second-Hand Smoke: No caffeine: Yes (one cup per day ) during the past year weight has: decreased > 10 lbs Dental Care, Regularly: Yes Physical Activity Frequency: 1-2 Times per Week Seatbelt Use: always Sunscreen Use: Yes Assistive Devices: Cane and Glasses Allergies Allergies Allergy/AdvReac Type Severity Reaction Status Date / Time FILTER REQUIRED WITH IV AdvReac Unknown Uncoded 10/02/22 13:29 FLUIDS Home Meds Home Medications Medication Instructions Recorded Confirmed loratadine 10 mg tablet (Claritin) 10 mg PO QAM 10/04/19 12/10/22 apixaban 2.5 mg tablet (Eliquis) 1.25 mg PO BID 01/07/21 12/10/22 pantoprazole 40 mg granules 40 mg PO QAM 01/07/21 12/10/22 delayed-release for susp in packet (Protonix) calcium carbonate 600 mg-vitamin 2 tab PO DAILY 08/12/22 12/10/22 D3 10 mcg (400 unit) tablet (Calcium 600 + D(3)) midodrine 5 mg tablet 5 mg PO QAM 08/12/22 12/10/22 zmzfeuub-hwmikie-wtrq-lutein tablet 1 tab PO QAM 08/12/22 12/10/22 ioeztv-bytdcign-vyjcspv 3 cap PO WM 09/21/22 12/10/22 36,000-114,000-180,000 unit capsule,delay rel (Creon) megestrol 20 mg tablet 20 mg PO TID PRN appetitie 10/09/22 12/10/22 gabapentin 400 mg capsule 400 mg PO TID 12/10/22 12/10/22 Previous Rx's Medication Instructions Recorded ondansetron 4 mg disintegrating 4 mg PO Q8H PRN nausea and 08/14/22 tablet vomiting #30 tabs Results & Data (ED) Vital Signs Vital Signs - 24 hr 12/10/22 11:09 12/10/22 10:40 12/10/22 11:34 Temperature 36.5 C Temperature Source Oral Pulse Rate 78 80 88 Pulse Rate from SpO2 Sensor Pulse Rhythm Regular Respiratory Rate 12 Respiratory Effort / Characteristics Non-Labored Respiratory Depth Normal Blood Pressure 108/65 Blood Pressure Mean 79 Pulse Oximetry 98 98 Oxygen Delivery Method Room Air Sepsis Recent Fever Within 48 Hours No Sepsis New/Unexplained Change in Mental Status No Sepsis Action Taken by Nursing No Action Required 12/10/22 11:09 12/10/22 11:30 12/10/22 12:00 Temperature Temperature Source Pulse Rate 77 87 74 Pulse Rate from SpO2 Sensor 77 88 74 Pulse Rhythm Respiratory Rate 17 17 18 Respiratory Effort / Characteristics Respiratory Depth Blood Pressure 111/74 Blood Pressure Mean 86 Pulse Oximetry 98 100 100 Oxygen Delivery Method Sepsis Recent Fever Within 48 Hours Sepsis New/Unexplained Change in Mental Status Sepsis Action Taken by Nursing 12/10/22 12:30 12/10/22 13:00 12/10/22 13:30 Temperature Temperature Source Pulse Rate 63 67 67 Pulse Rate from SpO2 Sensor 64 67 68 Pulse Rhythm Respiratory Rate 12 13 16 Respiratory Effort / Characteristics Respiratory Depth Blood Pressure 102/80 Blood Pressure Mean 87 Pulse Oximetry 99 100 99 Oxygen Delivery Method Sepsis Recent Fever Within 48 Hours Sepsis New/Unexplained Change in Mental Status Sepsis Action Taken by Nursing 12/10/22 14:00 12/10/22 15:16 12/10/22 15:18 Temperature Temperature Source Pulse Rate 88 82 84 Pulse Rate from SpO2 Sensor 85 Pulse Rhythm Respiratory Rate 22 23 Respiratory Effort / Characteristics Respiratory Depth Blood Pressure 107/64 115/64 Blood Pressure Mean 78 81 Pulse Oximetry 98 98 Oxygen Delivery Method Room Air Sepsis Recent Fever Within 48 Hours Sepsis New/Unexplained Change in Mental Status Sepsis Action Taken by Nursing Laboratory Data 12/10/22 11:29 12/10/22 11:29 Lab Results 12/10/22 12/10/22 12/10/22 Range/Units 11:29 11:29 11:29 WBC 0.67 L* (4.8-10.8) K/ul RBC 2.37 L (4.20-5.40) M/uL Hgb 8.0 L (12.0-16.0) g/dl Hct 24.0 L (37.0-47.0) % MCV 101.3 H (80.0-100.0) fL MCH 33.8 (25.0-34.0) pg MCHC 33.3 (32.0-36.0) g/dL RDW Std Deviation 58.3 H (36.4-46.3) fL RDW Coeff of Rajesh 15.9 H (11.5-14.5) % Plt Count 82 L (130-400) K/uL MPV 11.8 (9.4-12.4) fL Immature Gran % (Auto) 1.5 % Neut % (Auto) 76.1 % Lymph % (Auto) 11.9 % [place] % (Auto) 7.5 % Eos % (Auto) 1.5 % Baso % (Auto) 1.5 % Neut # (Auto) 0.51 L* (1.40-6.50) K/uL Lymph # (Auto) 0.08 L (1.2-3.4) K/uL [place] # (Auto) 0.05 L (0.11-0.59) K/uL Eos # (Auto) 0.01 (0-0.50) K/uL Baso # (Auto) 0.01 (0-0.2) K/uL Immature Gran # (Auto) 0.01 (0.01-0.20) K/uL Platelet Estimate Decreased L (Normal) PT 12.1 H (9.0-12.0) Seconds INR 1.1 (0.9-1.1) Sodium 137 (136-145) mmol/L Potassium 4.0 (3.5-5.1) mmol/L Chloride 109 H (98-107) mmol/L Carbon Dioxide 25 (21-32) mmol/L Anion Gap 3 (3-11) BUN 14 (6-23) mg/dl Creatinine 0.56 L (0.6-1.2) mg/dl Est Cr Clr Drug Dosing 78.2 ml/min Est GFR ( Amer) 111.8 ml/min Est GFR (Non-Af Amer) 96.5 ml/min BUN/Creatinine Ratio 25.0 H (10-20) Glucose 121 H (70-99(Fasting)) mg/dl Lactate (0.4-2.0) mmol/L Calcium 7.6 L (8.6-10.3) mg/dl Magnesium 1.8 (1.7-2.4) mg/dl Total Bilirubin 0.7 (0.2-1.0) mg/dl AST 71 H (13-39) U/L ALT 52 (7-52) U/L Alkaline Phosphatase 137 H (34-104) U/L Troponin I High Sens 5.1 (0-14) pg/ml Total Protein 4.8 L (6.0-8.3) gm/dl Albumin 2.5 L (3.4-5.0) gm/dl Globulin 2.3 L (2.5-4.0) gm/dl Albumin/Globulin Ratio 1.1 (0.9-2) Lipase < 3 L (11-82) U/L Procalcitonin (0-0.5) ng/ml SARS-CoV-2 (PCR) (Negative) Influenza Type A (PCR) (Neg) Influenza Type B (PCR) (Neg) RSV (RT-PCR) (Neg) 12/10/22 12/10/22 12/10/22 Range/Units 11:29 12:24 14:31 WBC (4.8-10.8) K/ul RBC (4.20-5.40) M/uL Hgb (12.0-16.0) g/dl Hct (37.0-47.0) % MCV (80.0-100.0) fL MCH (25.0-34.0) pg MCHC (32.0-36.0) g/dL RDW Std Deviation (36.4-46.3) fL RDW Coeff of Rajesh (11.5-14.5) % Plt Count (130-400) K/uL MPV (9.4-12.4) fL Immature Gran % (Auto) % Neut % (Auto) % Lymph % (Auto) % [place] % (Auto) % Eos % (Auto) % Baso % (Auto) % Neut # (Auto) (1.40-6.50) K/uL Lymph # (Auto) (1.2-3.4) K/uL [place] # (Auto) (0.11-0.59) K/uL Eos # (Auto) (0-0.50) K/uL Baso # (Auto) (0-0.2) K/uL Immature Gran # (Auto) (0.01-0.20) K/uL Platelet Estimate (Normal) PT (9.0-12.0) Seconds INR (0.9-1.1) Sodium (136-145) mmol/L Potassium (3.5-5.1) mmol/L Chloride (98-107) mmol/L Carbon Dioxide (21-32) mmol/L Anion Gap (3-11) BUN (6-23) mg/dl Creatinine (0.6-1.2) mg/dl Est Cr Clr Drug Dosing ml/min Est GFR ( Amer) ml/min Est GFR (Non-Af Amer) ml/min BUN/Creatinine Ratio (10-20) Glucose (70-99(Fasting)) mg/dl Lactate 1.5 (0.4-2.0) mmol/L Calcium (8.6-10.3) mg/dl Magnesium (1.7-2.4) mg/dl Total Bilirubin (0.2-1.0) mg/dl AST (13-39) U/L ALT (7-52) U/L Alkaline Phosphatase (34-104) U/L Troponin I High Sens (0-14) pg/ml Total Protein (6.0-8.3) gm/dl Albumin (3.4-5.0) gm/dl Globulin (2.5-4.0) gm/dl Albumin/Globulin Ratio (0.9-2) Lipase (11-82) U/L Procalcitonin 0.14 (0-0.5) ng/ml SARS-CoV-2 (PCR) NEGATIVE (Negative) Influenza Type A (PCR) Negative (Neg) Influenza Type B (PCR) Negative (Neg) RSV (RT-PCR) Negative (Neg) Administered Medications Discontinued Medications Sodium Chloride (Nss) 500 mls @ 999 mls/hr IV .Q31M STA Stop: 12/10/22 12:03 Last Infusion: 12/10/22 15:20 Dose: 0 mls/hr Documented By: Admin: 12/10/22 12:06 Dose: 999 mls/hr Documented By: RACHEL Vancomycin HCl 1,000 mg/ (Sodium Chloride) 520 mls @ 200 mls/hr IV NOW ONE Stop: 12/10/22 15:47 Last Admin: 12/10/22 14:22 Dose: 200 mls/hr Documented By: RACHEL Cefepime HCl (Maxipime) 2,000 mg in 20 mls @ 5 mls/min IV NOW STA; Protocol Stop: 12/10/22 13:15 Last Admin: 12/10/22 14:21 Dose: 5 mls/min Documented By: RACHEL Imaging Data Radiologist's Impression: Chest X-Ray 12/10/22 11:34 XR chest 1V portable CLINICAL HISTORY: Chest pain, nonspecific COMPARISON STUDY: Chest CT January 05, 2020. Chest radiograph August 12, 2022. FINDINGS: Right internal jugular Khatzm-g-Uynf is in place. There is no pneumothorax. Small bilateral pleural effusions with bibasilar opacities are present. There may be mild pulmonary edema. Cardiac size is normal. IMPRESSION: 1. Small bilateral pleural effusions with associated bibasilar opacities which could reflect atelectasis or consolidation. 2. Possible mild pulmonary edema. ACT 112: Negative or not required by law. Electronically signed by: Crow Carroll M.D. 12/10/2022 12:[address] 12/10/22 12:27 CT OF THE HEAD WITHOUT CONTRAST CLINICAL HISTORY: syncope, hx of CA, eval for mets COMPARISON STUDY: MRI of the right October 13, 2019. Head CT September 01, 2020. CT DOSE: 537.48 mGy.cm TECHNIQUE: Helical axial images of the head were obtained without IV contrast. Automated exposure control was utilized for the study. A dose lowering technique was utilized adhering to the principles of ALARA. FINDINGS: No acute intracranial hemorrhage, midline shift or mass effect is present. Encephalomalacia within the right frontal lobe is unchanged. This represents an old infarct. The appearance of the brain is unchanged. There is no acute calvarial fracture. The ventricular system is unremarkable. The basal cisterns are patent. No extra-axial collections are present. There are no findings to suggest acute dural sinus thrombosis or acute territorial infarct. No significant calvarial abnormalities are present. Visualized portions of the sinuses and mastoid air cells are clear. IMPRESSION: 1. No acute intracranial findings. No change in appearance of the brain. Old right frontal lobe infarct. 2. No evidence for metastatic disease on unenhanced exam. ACT 112: Negative or not required by law. Electronically signed by: Crow Carroll M.D. 12/10/2022 1:15 PM Discharge Plan Visit Data Chief Complaint: Weakness Stated Complaint: WEAKNESS, DIARRHEA ?SEIZURE ED Provider: Josh Leroy Discharge Problem: Neutropenia Forms Stand Alone Forms: [facility] Prescriptions Prescriptions: No Action Creon 36,000-114,000- 180,000 unit capsule,delayed release(DR/EC) 3 cap PO WM Rx Instructions: 2 caps with snacks megestrol 20 mg tablet 20 mg PO TID PRN (Reason: appetitie) pantoprazole [Protonix] [address] for susp in packet 40 mg PO QAM Eliquis 2.5 mg tablet 1.25 mg PO BID loratadine [Claritin] 10 mg Tablet 10 mg PO QAM midodrine 5 mg tablet 5 mg PO QAM cjdjcfil-npggfxr-gfje-lutein Tablet 1 tab PO QAM calcium carbonate-vitamin D3 [Calcium 600 + D(3)] 600 mg-10 mcg (400 unit) Tablet 2 tab PO DAILY ondansetron 4 mg tablet,disintegrating 4 mg PO Q8H PRN (Reason: nausea and vomiting) Qty: 30 0RF gabapentin 400 mg capsule 400 mg PO TID Referrals Referrals: Michelle Torres MD [Primary Care Provider] -
[2022-12-10 12:02] LABS: Anion Gap 3 (3-11); Blood Urea Nitrogen 14 mg/dl (6-23); Calcium 7.6 mg/dl (8.6-10.3); Carbon Dioxide 25 mmol/L (21-32); Chloride 109 mmol/L (98-107); Creatinine Clr Calc Pharmacy 78.2 ml/min; Est GFR (African American) 111.8 ml/min; Est GFR (Non-African American) 96.5 ml/min; Glucose 121 mg/dl (70-99(Fasting)); Sodium 137 mmol/L (136-145)
[2022-12-10 12:05] LABS: Mean Corpuscular Hemoglobin 33.8 pg (25.0-34.0); Mean Corpuscular Hgb Conc 33.3 g/dL (32.0-36.0); Mean Corpuscular Volume 101.3 fL (80.0-100.0); Mean Platelet Volume 11.8 fL (9.4-12.4); Platelet Count 82 K/uL (130-400); RDW Coefficient of Variation 15.9 % (11.5-14.5); RDW Standard Deviation 58.3 fL (36.4-46.3); Red Blood Count 2.37 M/uL (4.20-5.40); White Blood Count 0.67 K/ul (4.8-10.8)
[2022-12-10 12:07] LABS: Basophils # (auto) 0.01 K/uL (0-0.2); Basophils % (auto) 1.5 %; Eosinophils # (auto) 0.01 K/uL (0-0.50); Eosinophils % (auto) 1.5 %; Immature Granulocytes # (auto) 0.01 K/uL (0.01-0.20); Immature Granulocytes % (auto) 1.5 %; Lymphocytes # (auto) 0.08 K/uL (1.2-3.4); Lymphocytes % (auto) 11.9 %; Monocytes # (auto) 0.05 K/uL (0.11-0.59); Monocytes % (auto) 7.5 %; Neutrophils # (auto) 0.51 K/uL (1.40-6.50); Neutrophils % (auto) 76.1 %; Troponin I High Sensitivity 5.1 pg/ml (0-14)
[2022-12-10 12:08] LABS: Platelet Estimate Decreased (Normal)
[2022-12-10 12:10] LABS: INR 1.1 (0.9-1.1); Prothrombin Time 12.1 Seconds (9.0-12.0)
--- NOTE | 2022-12-10 12:31 | XRay Report ---
XR chest 1V portable CLINICAL HISTORY: Chest pain, nonspecific COMPARISON STUDY: Chest CT January 05, 2020. Chest radiograph August 12, 2022. FINDINGS: Right internal jugular Uwrybr-k-Zvcx is in place. There is no pneumothorax. Small bilateral pleural effusions with bibasilar opacities are present. There may be mild pulmonary edema. Cardiac s ize is normal. IMPRESSION: 1. Small bilateral pleural effusions with associated bibasilar opacities which could reflect atelecta sis or consolidation. 2. Possible mild pulmonary edema. ACT 112: Negative or not required by law. Electronically signed by: Crow Carroll M.D. 12/10/2022 12:29 PM
[2022-12-10 12:35] LABS: Alanine Aminotransferase 52 U/L (7-52); Albumin Globulin Ratio 1.1 (0.9-2); Albumin Level 2.5 gm/dl (3.4-5.0); Alkaline Phosphatase 137 U/L (34-104); Aspartate Aminotransferase 71 U/L (13-39); Bilirubin,Total 0.7 mg/dl (0.2-1.0); Globulin 2.3 gm/dl (2.5-4.0); Lipase < 3 U/L (11-82); Total Protein 4.8 gm/dl (6.0-8.3)
[2022-12-10] MEDS ORDERED: VANCOMYCIN CONSULT ACTIVE PRN (13:12)
[2022-12-10] MEDS ORDERED: CEFEPIME 2,000 MG/20 ML VIAL IV STA (13:12)
[2022-12-10] MEDS ORDERED: VANCOMYCIN HCL 1,000 MG in SODIUM CHLORIDE 0.9% 500 ML IV ONE (13:12)
--- NOTE | 2022-12-10 13:18 | CT Scan Report ---
CT OF THE HEAD WITHOUT CONTRAST CLINICAL HISTORY: syncope, hx of CA, eval for mets COMPARISON STUDY: MRI of the right October 13, 2019. Head CT September 01, 2020. CT DOSE: 537.48 mGy.cm TECHNIQUE: Helical axial images of the head were obtained without IV contrast. Automated exposure con trol was utilized for the study. A dose lowering technique was utilized adhering to the principles o f ALARA. FINDINGS: No acute intracranial hemorrhage, midline shift or mass effect is present. Encephalomalacia within the right frontal lobe is unchanged. This represents an old infarct. The appearance of the br ain is unchanged. There is no acute calvarial fracture. The ventricular system is unremarkable. The b errol cisterns are patent. No extra-axial collections are present. There are no findings to suggest ac [place] dural sinus thrombosis or acute territorial infarct. No significant calvarial abnormalities are p resent. Visualized portions of the sinuses and mastoid air cells are clear. IMPRESSION: 1. No acute intracranial findings. No change in appearance of the brain. Old right frontal lobe infar ct. 2. No evidence for metastatic disease on unenhanced exam. ACT 112: Negative or not required by law. Electronically signed by: Crow Carroll M.D. 12/10/2022 1:15 PM
[2022-12-10 14:43] LABS: Magnesium 1.8 mg/dl (1.7-2.4)
[2022-12-10 15:19] LABS: Influenza A virus by PCR Negative (Neg); Influenza B virus by PCR Negative (Neg); RSV by PCR Negative (Neg); SARS CoV2 RNA(COVID-19) Ceph NEGATIVE (Negative)
[2022-12-10] MEDS ORDERED: ACETAMINOPHEN 325 MG TAB PO PRN (17:32)
[2022-12-10] MEDS ORDERED: ONDANSETRON INJ 2 MG/ML 2 ML VIAL IV PRN (17:32)
--- NOTE | 2022-12-10 18:15 | History & Physical Report ---
Date of Service December 10, 2022 Assessment & Plan (1) Acute dehydration: (2) Orthostatic hypotension: (3) Near syncope: Plan: Admit to tele Patient presenting from home after several near syncopal events after standing from bed. Patient with history of metastatic pancreatic adenocarcinoma, currently on chemotherapy. Suspect near syncope due to hypovolemia due to dehydration chemotherapy and diarrhea History of orthostatic hypotension, on midodrine Continue IVF Monitor orthostatic BPs, continue home dose midodrine. Consider increasing if needed. (4) Pancytopenia: (5) Neutropenia: Plan: Likely secondary to recent chemotherapy on 12/04 WBC 0.6K, Hgb 8.0, platelet 82 K, ANC 510 Currently afebrile S/p cefepime and Vanco in the ED, continue with empirically Stool for C. difficile UA and culture Blood cultures (6) Pancreatic cancer: Plan: s/p Whipple, currently on chemo With mets to lung and retroperitoneal mass --s/p radiation Follows with Dr. Ortiz Torres (7) History of pulmonary embolism: (8) History of DVT (deep vein thrombosis): Plan: Continue Eliquis, on low-dose secondary to history of HHT DVT PROPHYLAXIS On Eliquis Patient seen in collaboration with Dr. Pierce. I spent a total of 75 minutes coordinating, documenting, and providing care for this patient excluding time spent in the performance of separately billed services. This included personally reviewing all current laboratories and imaging studies, medication reconciliation, outpatient chart review, and discussion with specialists. Admission and Anticipated Discharge Date Admission Date: December 10, 2022 History of Present Illness Chief Complaint: Almost Passing Out Primary Care Provider: Michelle Torres MD 67 year old female with PMH metastatic pancreatic adenocarcinoma s/p Whipple, cu rrently on chemo, HHT, PFO, history of CVA, history of DVT and PE on reduced dose Eliquis due to HHT, and other problems listed below who presents to the ED for evaluation of nearly passing episodes. Patient currently on chemotherapy, last treatment on 12/04/2022. Patient typically struggles with diarrhea after chemotherapy. Yesterday, patient's reports that the patient was up most the day playing bingo and when she came home she was very fatigued. Overnight, every time patient got up to use the bedside toilet, she would appear as if she was passing out and was shaking. states that these episodes were brief and patient was able to get back to bed. This happened again this morning and patient was brought to the ED for further evaluation. Patient reports she does not remember these events. States that she does not remember feeling lightheaded or dizzy. No other recent illnesses, fevers, chills. Denies abdominal pain, nausea, vomiting. Appetite has been fair. No urinary symptoms. In the ED, CBC shows pancytopenia WBC 0.6K, Hgb 8.0, platelet 82, ANC 510. Patient was given IV cefepime, IV Vanco, IVF. Allergies Allergy/AdvReac Type Severity Reaction Status Date / Time FILTER REQUIRED WITH IV AdvReac Unknown Uncoded 10/02/22 13:29 FLUIDS Home Medications Medication Instructions Recorded Confirmed Type loratadine 10 mg tablet (Claritin) 10 mg PO QAM 10/04/19 12/10/22 History apixaban 2.5 mg tablet (Eliquis) 1.25 mg PO BID 01/07/21 12/10/22 History pantoprazole 40 mg granules 40 mg PO QAM 01/07/21 12/10/22 History delayed-release for susp in packet (Protonix) calcium carbonate 600 mg-vitamin 2 tab PO DAILY 08/12/22 12/10/22 History D3 10 mcg (400 unit) tablet (Calcium 600 + D(3)) midodrine 5 mg tablet 5 mg PO QAM 08/12/22 12/10/22 History cbpkmcuq-kclkrrf-robv-lutein tablet 1 tab PO QAM 08/12/22 12/10/22 History ondansetron 4 mg disintegrating 4 mg PO Q8H PRN nausea and 08/14/22 12/10/22 Rx tablet vomiting #30 tabs ngvkgv-xcsslhup-pysnbxr 3 cap PO WM 09/21/22 12/10/22 History 36,000-114,000-180,000 unit capsule,delay rel (Creon) megestrol 20 mg tablet 20 mg PO TID PRN appetitie 10/09/22 12/10/22 History gabapentin 400 mg capsule 400 mg PO TID 12/10/22 12/10/22 History Past Med/Surg History Medical History Anemia Closed fracture of right hip requiring operative repair with malunion History of Clostridioides difficile colitis History of DVT (deep vein thrombosis) History of pulmonary embolism Left hemiparesis Orthostatic hypotension Pancreatic cancer Metastatic pancreatic adenocarcinoma Pancytopenia Patent foramen ovale Severe malnutrition Stroke Telangiectasia Thrombocytopenia Surgical History History of ERCP 07/05/2019 - biliary stricture, adenocarcinoma on cytology 08/28/2019 - biliary stricture, stent replaced History of esophagogastroduodenoscopy (EGD) EGD with EUS. 07/10/2019. pancreatic adenocarcinoma, enlarged lymph node, GB sludge History of Whipple procedure Family History Mother , age 86 C. diff Cancer possible pancreas Father , age 82 prostate cancer No problems noted. Brother Cancer prostate met cancer and melanoma Brother Cancer melanoma Sister Koqxa-Deyaf-Nrfmk disease Sister No problems noted. Son No problems noted. Son No problems noted. 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 Other Information That Helps Us Care for You: No Feels Safe at Home: Yes Safety Concerns: Feels Safe At This Time Childhood Exposure to Second-Hand Smoke: No caffeine: Yes (one cup per day ) during the past year weight has: decreased > 10 lbs Dental Care, Regularly: Yes Physical Activity Frequency: 1-2 Times per Week Seatbelt Use: always Sunscreen Use: Yes Assistive Devices: Cane and Walker Review of Systems Review of Systems: ROS per HPI, all other systems reviewed and negative Physical Exam Constitutional: + ill appearing and + thin; no acute distress Eyes: PERRL, conjunctivae normal, anicteric sclerae ENMT: external ear and nose normal, oropharynx normal Respiratory: normal respiratory effort, lungs clear to auscultation Cardiovascular: Rate/Rhythm: regular rate and regular rhythm Vessels: normal peripheral pulses Extremities: no edema Gastrointestinal (Abdomen): normal bowel sounds, soft, nontender, no h epatosplenomegaly Musculoskeletal: no cyanosis or clubbing, extremities motor strength 5/5 Skin: no rashes, warm and dry Neurologic: PERRL, EOMI, accommodation nl, no face palsy, no dysarthria Psychiatric: A+Ox3, euthymic affect Results & Data Results & Data Vital Signs (Past 12 Hours) Vital Signs Temp Pulse Resp BP Pulse Ox O2 Del Method 12/10/22 16:30 90 19 116/70 97 Room Air 12/10/22 16:00 89 18 113/69 100 Room Air 12/10/22 15:30 88 14 113/63 99 Room Air 12/10/22 15:18 84 12/10/22 15:16 82 23 115/64 98 Room Air 12/10/22 14:00 88 22 107/64 98 12/10/22 13:30 67 16 99 12/10/22 13:00 67 13 102/80 100 12/10/22 12:30 63 12 99 12/10/22 12:00 74 18 111/74 100 12/10/22 11:30 87 17 100 12/10/22 11:09 77 17 98 12/10/22 11:34 88 98 12/10/22 10:40 36.5 C 80 12 108/65 98 Room Air 12/10/22 11:09 78 Laboratory Results Short CBC 12/10/22 Range/Units 11:29 WBC 0.67 L* (4.8-10.8) K/ul Hgb 8.0 L (12.0-16.0) g/dl Hct 24.0 L (37.0-47.0) % Plt Count 82 L (130-400) K/uL BMP 12/10/22 11:29 Sodium 137 Potassium 4.0 Chloride 109 H Carbon Dioxide 25 BUN 14 Creatinine 0.56 L Glucose 121 H Calcium 7.6 L Liver Function 12/10/22 Range/Units 11:29 Total Bilirubin 0.7 (0.2-1.0) mg/dl AST 71 H (13-39) U/L ALT 52 (7-52) U/L Alkaline Phosphatase 137 H (34-104) U/L Albumin 2.5 L (3.4-5.0) gm/dl Diagnostic Findings Chest X-Ray 12/10/22 11:34 XR chest 1V portable CLINICAL HISTORY: Chest pain, nonspecific COMPARISON STUDY: Chest CT January 05, 2020. Chest radiograph August 12, 2022. FINDINGS: Right internal jugular Liefgx-o-Kcph is in place. There is no pneumothorax. Small bilateral pleural effusions with bibasilar opacities are present. There may be mild pulmonary edema. Cardiac size is normal. IMPRESSION: 1. Small bilateral pleural effusions with associated bibasilar opacities which could reflect atelectasis or consolidation. 2. Possible mild pulmonary edema. ACT 112: Negative or not required by law. Electronically signed by: Crow Carroll M.D. 12/10/2022 12:[address] 12/10/22 12:27 CT OF THE HEAD WITHOUT CONTRAST CLINICAL HISTORY: syncope, hx of CA, eval for mets COMPARISON STUDY: MRI of the right October 13, 2019. Head CT September 01, 2020. CT DOSE: 537.48 mGy.cm TECHNIQUE: Helical axial images of the head were obtained without IV contrast. Automated exposure control was utilized for the study. A dose lowering technique was utilized adhering to the principles of ALARA. FINDINGS: No acute intracranial hemorrhage, midline shift or mass effect is pres ent. Encephalomalacia within the right frontal lobe is unchanged. This represents an old infarct. The appearance of the brain is unchanged. There is no acute calvarial fracture. The ventricular system is unremarkable. The basal cisterns are patent. No extra-axial collections are present. There are no findings to suggest acute dural sinus thrombosis or acute territorial infarct. No significant calvarial abnormalities are present. Visualized portions of the sinuses and mastoid air cells are clear. IMPRESSION: 1. No acute intracranial findings. No change in appearance of the brain. Old right frontal lobe infarct. 2. No evidence for metastatic disease on unenhanced exam. ACT 112: Negative or not required by law. Electronically signed by: Crow Carroll M.D. 12/10/2022 1:15 PM Code Status & VTE Plan VTE Prophylaxis Plan VTE Prophylaxis will be ordered: No Supervising Physician Co-Signing Physician Notes I have seen and examined the patient and have discussed the case with the provider above. I agree with the assessment and plan as stated. 67 yo F with pancreatic cancer on chemotherapy presents with weakness after a very full couple of days. She is having loose stools and has a h/o cdiff but no abdominal pain or fevers. She denies other infectious symptoms at this time and is afebrile. Physical reveals a fatigued and ill appearing patient in NAD. She is covered under multiple blankets because of feeling chilled. She is thin and cachectic, alopecia, moist mucous membranes. CV exam: S1/2 heard with no mgr, lungs are CTAB. Abd is soft NTND, No gross focal neuromuscular deficits, skin is warm and dry. Agree with broad spectrum antibiotics at this time given high risk of damage with occult infection. This was also supported bby the patient's oncologist. Cont workup asa above. DO Stan
[2022-12-10] MEDS ORDERED: PANCREAZE (LIPASE 10,500U) CAP PO PRN (18:20)
[2022-12-10] MEDS: SODIUM CHLORIDE 0.9% 1000ML 1,000 ML IV SCH (18:38)
[2022-12-10] MEDS ORDERED: Patient's ALLERGY Info needs ENTERED STA (19:19)
[2022-12-10] MEDS: CEFEPIME 2,000 MG in SYRINGE 0 ML IV SCH (21:55)
[2022-12-10] MEDS: APIXABAN 2.5 MG TAB PO SCH (21:58)
[2022-12-10] MEDS: GABAPENTIN 400 MG CAP PO SCH (21:58)
[2022-12-10] MEDS: PANCREAZE (LIPASE 10,500U) CAP PO SCH (21:58)
[2022-12-10] MEDS: VANCOMYCIN HCL 500 MG in DEXTROSE 5% 100 ML IV SCH (22:00)
[2022-12-11] MEDS: SODIUM CHLORIDE 0.9% 1000ML 1,000 ML IV SCH ×2 (02:42→10:48)
[2022-12-11] MEDS: CEFEPIME 2,000 MG in SYRINGE 0 ML IV SCH ×2 (06:18→14:09)
[2022-12-11] MEDS: VANCOMYCIN HCL 500 MG in DEXTROSE 5% 100 ML IV SCH ×2 (06:18→14:09)
[2022-12-11 06:42] LABS: Appearance Urine Clear (Clear); Bilirubin Urine Negative (Negative); Blood Urine Trace (Negative); Color Urine Yellow; Epithelial Cell Urine Auto >30 /lpf (0-5); Glucose Urine UA Negative (Negative); Ketones Urine Negative (Negative); Leukocyte Esterase Urine 1+ (Negative); Nitrite Urine Positive (Negative); Protein Urine Negative (Negative); RBC Urine Automated 0-4 /hpf (0-4); Specific Gravity Urine 1.016 (1.000-1.030); Urobilinogen Urine Negative (Negative); pH Urine 5.5 (4.5-7.5)
[2022-12-11 07:08] LABS: Bacteria Urine Automated 1+ (Negative)
[2022-12-11 07:34] LABS: BUN Creatinine Ratio 12.9 (10-20); Calcium 6.7 mg/dl (8.6-10.3); Creatinine Clr Calc Pharmacy 70.8 ml/min; Est GFR (African American) 108.1 ml/min; Est GFR (Non-African American) 93.3 ml/min; Potassium 3.7 mmol/L (3.5-5.1)
[2022-12-11] MEDS: PANCREAZE (LIPASE 10,500U) CAP PO SCH ×3 (07:36→17:06)
[2022-12-11] MEDS: APIXABAN 2.5 MG TAB PO SCH ×2 (07:37→22:21)
[2022-12-11] MEDS: GABAPENTIN 400 MG CAP PO SCH ×3 (07:37→22:21)
[2022-12-11] MEDS: LORATADINE 10 MG TAB PO SCH (07:38)
[2022-12-11] MEDS: PANTOprazole 40 MG TAB PO SCH (07:39)
[2022-12-11 07:49] LABS: Hematocrit (blood only) 22.1 % (37.0-47.0); Hemoglobin 7.5 g/dl (12.0-16.0); Mean Corpuscular Hemoglobin 34.1 pg (25.0-34.0); Mean Corpuscular Hgb Conc 33.9 g/dL (32.0-36.0); Mean Corpuscular Volume 100.5 fL (80.0-100.0); Platelet Count 52 K/uL (130-400); RDW Coefficient of Variation 15.3 % (11.5-14.5); RDW Standard Deviation 55.9 fL (36.4-46.3); White Blood Count 0.57 K/ul (4.8-10.8)
[2022-12-11 07:54] LABS: Basophils # (auto) 0.01 K/uL (0-0.2); Basophils % (auto) 1.8 %; Eosinophils # (auto) 0.01 K/uL (0-0.50); Eosinophils % (auto) 1.8 %; Lymphocytes # (auto) 0.06 K/uL (1.2-3.4); Lymphocytes % (auto) 10.5 %; Monocytes # (auto) 0.07 K/uL (0.11-0.59); Monocytes % (auto) 12.3 %; Neutrophils # (auto) 0.42 K/uL (1.40-6.50); Neutrophils % (auto) 73.6 %
[2022-12-11 07:56] LABS: Tear Drop Cells Occasional
[2022-12-11] MEDS ORDERED: MIDODRINE HCL 2.5 MG TAB PO SCH (09:00)
[2022-12-11] MEDS ORDERED: STAT IV STA (09:23)
[2022-12-11] MEDS ORDERED: CALCIUM GLUCONATE 10% 1,000 MG in DEXTROSE 5% 50 ML IV ONE (09:23)
--- NOTE | 2022-12-11 10:00 | Electrocardiogram Report ---
Test Reason : Blood Pressure : / mmHG Vent. Rate : 074 BPM Atrial Rate : 000 BPM P-R Int : 000 ms QRS Dur : 098 ms QT Int : 380 ms P-R-T Axes : 000 068 057 degrees QTc Int : 421 ms Normal sinus rhythm RSR' or QR pattern in V1 suggests right ventricular conduction delay Abnormal ECG When compared with ECG of 12-AUG-2022 19:23, Vent. rate has decreased BY 37 BPM T wave inversion less evident in Anterior leads Confirmed by Glen Aldana ([id number]) on 12/11/2022 10:00:25 AM Referred By: Confirmed By:Glen Aldana
--- NOTE | 2022-12-11 10:26 | Pharmacy Report ---
Pharmacy PK ABX Note - Date of Service December 11, 2022 - Assessment and Plan Assessment 67 year old F started on vancomycin and cefepime empirically. PMHx significant for metastatic pancreatic adenocarcinoma - currently on chemo, hx DVT/PE. Presented to ER with syncope possibly related to dehydration from diarrhea after chemotherapy. Blood cultures/urine cultures pending. Patient afebrile, however pancytopenic. Day #2 of antimicrobial therapy. Plan Vancomycin * Loading dose: 1000 mg x 1 received yesterday * Started on vancomycin 500 mg iv q 8 hrs * Regimen is predicted to achieve target AUC/GARRICK of 400-600 mg/L.hr and produce estimated trough of ~17 mcg/ml * Plan to check level prior to the 0600 dose tomorrow to assess vancomycin dosing Pharmacy will continue to follow and will adjust dose/frequency as necessary. Thank you. Pharmacy has transitioned to AUC monitoring for vancomycin. AUC/GARRICK is the preferred PK/PD target and is associated with decreased risk of nephrotoxicity compared to traditional trough targets.
[2022-12-11] MEDS: LOPERAMIDE HCL 2 MG CAP PO PRN ×3 (10:47→15:33)
[2022-12-11] MEDS ORDERED: SODIUM PHOSPHATE 3 MMOL/1 ML INFUSION IV STA (12:14)
[2022-12-11] MEDS ORDERED: SODIUM PHOSPHATE 30 MMOL in SODIUM CHLORIDE 0.9% 500 ML IV ONE (12:30)
--- NOTE | 2022-12-11 17:12 | Hospitalist Progress Note ---
Date of Service December 11, 2022 Assessment & Plan (1) Acute dehydration: (2) Orthostatic hypotension: (3) Near syncope: Plan: Admit to tele Patient presenting from home after several near syncopal events after standing from bed. Patient with history of metastatic pancreatic adenocarcinoma, currently on chemotherapy. Suspect near syncope due to hypovolemia due to dehydration chemotherapy and diarrhea History of orthostatic hypotension, on midodrine she is eating better today--will stop IVF at this time. Monitor orthostatic BPs, continue home dose midodrine. Phos replaced, cont checking lytes daily (4) Antineoplastic chemotherapy induced pancytopenia: Plan: last chemo was one week ago. All cell lines are down and she is neutropenic. No active bleeding or need for blood transfusion at this time. No fevers. Cont neutropenic precautions and CBC in am. (5) Urinary tract infection: Plan: With ongoing diarrhea and h/o cdiff, dc vanc and cefepime. Cover with Rocephin pending urine culture results. Notably blood cultures are negative. (6) Pancreatic cancer: Plan: s/p Whipple, currently on chemo With mets to lung and retroperitoneal mass --s/p radiation Follows with Dr. Ortiz Torres (7) History of pulmonary embolism: (8) History of DVT (deep vein thrombosis): Plan: Continue Eliquis, on low-dose secondary to history of HHT DVT PROPHYLAXIS On Eliquis Full Code Dispo-to home in am as long as she is feeling improved. Nori Pierce DO [facility] Hospitalist Admission and Anticipated Discharge Date Admission Date: December 10, 2022 Subjective 67 yo F with pancreatic cancer presents with weakness workup with UTI+ patient reports some urgnecy recently still neutropenic but denies fevers or chills appetite is good ++diarrhea Review of Systems Review of Systems: All systems were reviewed and negative except as indicated on subjective above. Physical Exam Physical Exam: CONSTITUTIONAL: WNWD, vitals as above, fatigued, NAD EYES: normal conjunctivae, no scleral icterus, ENT: external ear and nose normal, MMM NECK: trachea midline RESPIRATORY: clear to auscultation bilaterally, no crackles, rales or wheezes, normal respiratory effort CARDIOVASCULAR: regular rate and rhythm, S1 and 2 heard without murmurs, gallops or rubs, no JVD, no peripheral edema CHEST: inspection of chest was normal GASTROINTESTINAL: soft, nontender, ND, no guarding MUSCULOSKELETAL: strength 5/5 throughout, head is normocephalic and atraumatic, SKIN: warm and dry NEUROLOGIC: CN 2-12 grossly intact, no sensory deficit, normal cognition, normal speech, no tremor PSYCHIATRIC: alert cooperative and oriented to person, place and time. Euthym ic mood, makes good eye contact, language grossly intact, recent and remote memory grossly intact. Results & Data Results & Data Vital Signs (Past 12 Hours) Vital Signs Temp Pulse Pulse Resp BP BP Pulse Ox 12/11/22 16:50 78 12/11/22 16:00 36.8 C 77 18 122/76 98 12/11/22 11:17 36.9 C 78 18 103/61 96 12/11/22 08:02 82 12/11/22 07:32 36.8 C 76 18 106/64 98 O2 Del Method 12/11/22 16:50 12/11/22 16:00 Room Air 12/11/22 11:17 Room Air 12/11/22 08:02 12/11/22 07:32 Room Air Laboratory Results Short CBC 12/11/22 Range/Units 06:51 WBC 0.57 L* (4.8-10.8) K/ul Hgb 7.5 L (12.0-16.0) g/dl Hct 22.1 L (37.0-47.0) % Plt Count 52 L (130-400) K/uL BMP 12/11/22 06:51 Sodium 140 Potassium 3.7 Chloride 114 H Carbon Dioxide 24 BUN 8 Creatinine 0.62 Glucose 93 Calcium 6.7 L Urine 12/11/22 Range/Units 02:35 Urine Color Yellow Urine Appearance Clear (Clear) Urine pH 5.5 (4.5-7.5) Ur Specific [place] 1.016 (1.000-1.030) Urine Protein Negative (Negative) Urine Glucose (UA) Negative (Negative) Medications Administered Current Inpatient Medications Acetaminophen (Acetaminophen 325 Mg Tab) 650 mg PO Q4H PRN PRN Reason: pain/fever Stop: 01/09/23 17:31 Lipase/Protease/Amylase (Pancreaze (Lipase 10,500u) Cap) 3 cap PO TIDM COLT Stop: 01/09/23 17:31 Last Admin: 12/11/22 17:06 Dose: 3 cap Lipase/Protease/Amylase (Pancreaze (Lipase 10,500u) Cap) 2 cap PO BID PRN PRN Reason: WITH SNACKS Stop: 01/09/23 18:19 Apixaban (Apixaban 2.5 Mg Tab) 1.25 mg PO BID [facility] Stop: 01/09/23 20:59 Last Admin: 12/11/22 07:37 Dose: 1.25 mg Gabapentin (Gabapentin 400 Mg Cap) 400 mg PO TID [facility] Stop: 01/09/23 20:59 Last Admin: 12/11/22 14:11 Dose: 400 mg Sodium Phosphate 30 mmol/ (Sodium Chloride) 510 mls @ 88 mls/hr IV ONE ONE Stop: 12/11/22 18:17 Last Admin: 12/11/22 12:37 Dose: 88 mls/hr Ceftriaxone Sodium 1,000 mg/ (Dextrose) 50 mls @ 100 mls/hr IV Q24H [facility]; Protocol Stop: 12/16/22 17:14 Loperamide HCl (Loperamide Hcl 2 Mg Cap) 2 mg PO UD PRN PRN Reason: Diarrhea Stop: 01/10/23 10:26 Last Admin: 12/11/22 15:33 Dose: 2 mg Loratadine (Loratadine 10 Mg Tab) [facility] Stop: 01/10/23 08:59 Last Admin: 12/11/22 07:38 Dose: 10 mg Midodrine (Midodrine Hcl 2.5 Mg Tab) 5 mg PO QAM [facility] Stop: 01/10/23 08:59 Last Admin: 12/11/22 07:39 Dose: 5 mg Ondansetron HCl (Ondansetron Inj 2 Mg/Ml 2 Ml Vial) 4 mg IV Q6H PRN PRN Reason: Nausea Stop: 01/09/23 17:31 Pantoprazole Sodium (Pantoprazole 40 Mg Tab) [facility] [place] Stop: 01/10/23 08:59 Last Admin: 12/11/22 07:39 Dose: 40 mg
[2022-12-11] MEDS ORDERED: cefTRIAXone SODIUM 1,000 MG in DEXTROSE 5% AD-VAN 50 ML IV SCH (17:45)
[2022-12-11] MEDS ORDERED: ALBUMIN 25% 100 mL 25 GM/100 ML VIAL IV ONE (20:53)
[2022-12-11] MEDS ORDERED: MAGNESIUM SULFATE / D5W 1 GM/100 ML BAG IV ONE (20:55)
[2022-12-11] MEDS: MIDODRINE HCL 2.5 MG TAB PO SCH (21:45)
[2022-12-11 21:48] LABS: Albumin Level 2.2 gm/dl (3.4-5.0); Bilirubin,Total 0.5 mg/dl (0.2-1.0); Magnesium 1.5 mg/dl (1.7-2.4); Total Protein 4.4 gm/dl (6.0-8.3)
[2022-12-11 22:21] LABS: Basophils # (auto) 0.01 K/uL (0-0.2); Basophils % (auto) 0.6 %; Eosinophils # (auto) 0.04 K/uL (0-0.50); Eosinophils % (auto) 2.6 %; Hematocrit (blood only) 22.7 % (37.0-47.0); Hemoglobin 7.7 g/dl (12.0-16.0); Immature Granulocytes # (auto) 0.02 K/uL (0.01-0.20); Immature Granulocytes % (auto) 1.3 %; Lymphocytes # (auto) 0.12 K/uL (1.2-3.4); Lymphocytes % (auto) 7.7 %; Mean Corpuscular Hemoglobin 33.3 pg (25.0-34.0); Mean Corpuscular Hgb Conc 33.9 g/dL (32.0-36.0); Mean Corpuscular Volume 98.3 fL (80.0-100.0); Monocytes % (auto) 12.9 %; Neutrophils # (auto) 1.16 K/uL (1.40-6.50); Neutrophils % (auto) 74.9 %; Nucleated RBC # (auto) 0.02 K/uL (0-0.12); Nucleated RBC % (auto) 1.3 %; Platelet Count 66 K/uL (130-400); RDW Coefficient of Variation 15.3 % (11.5-14.5); RDW Standard Deviation 54.1 fL (36.4-46.3); Red Blood Count 2.31 M/uL (4.20-5.40); White Blood Count 1.55 K/ul (4.8-10.8)
[2022-12-11 22:23] LABS: Partial Thromboplastin Time 27.2 Seconds (21.0-31.0)
[2022-12-11 22:26] LABS: Albumin Level 2.2 gm/dl (3.4-5.0); BUN Creatinine Ratio 9.1 (10-20); Bilirubin,Total 0.5 mg/dl (0.2-1.0); Calcium 6.9 mg/dl (8.6-10.3); Creatinine Clr Calc Pharmacy 66.5 ml/min; Est GFR (African American) 105.9 ml/min; Est GFR (Non-African American) 91.4 ml/min; Globulin 2.2 gm/dl (2.5-4.0); Potassium 3.2 mmol/L (3.5-5.1); Total Protein 4.4 gm/dl (6.0-8.3)
[2022-12-11 22:39] LABS: Acanthocytes 1+
[2022-12-12] MEDS ORDERED: POTASSIUM CHLORIDE CRTAB 20 MEQ TABCR PO STA (02:07)
[2022-12-12] MEDS ORDERED: MAGNESIUM SULFATE / D5W 1 GM/100 ML BAG IV ONE (02:07)
--- NOTE | 2022-12-12 02:11 | Communication Note ---
Date of Service: December 12, 2022 Patient noted to be lethargic, SBP noted to be 90s as per RN. IVF, increase midodrine from 5 mg PO daily to 5 mg p.o. 3 times daily.
[2022-12-12] MEDS: POTASSIUM CHLORIDE / WTR 10 MEQ/100 ML PLCT IV SCH ×4 (04:00→06:07)
[2022-12-12] MEDS: LOPERAMIDE HCL 2 MG CAP PO PRN ×3 (04:21→20:16)
[2022-12-12] MEDS ORDERED: VANCOMYCIN LEVEL ONE (05:30)
[2022-12-12] MEDS: MIDODRINE HCL 2.5 MG TAB PO SCH ×3 (06:06→16:31)
[2022-12-12] MEDS: PANCREAZE (LIPASE 10,500U) CAP PO SCH ×3 (07:52→16:31)
[2022-12-12] MEDS: PANTOprazole 40 MG TAB PO SCH (07:52)
[2022-12-12] MEDS: APIXABAN 2.5 MG TAB PO SCH ×2 (07:53→20:17)
[2022-12-12] MEDS: LORATADINE 10 MG TAB PO SCH (07:53)
[2022-12-12 08:07] LABS: Basophils # (auto) 0.02 K/uL (0-0.2); Basophils % (auto) 0.9 %; Eosinophils # (auto) 0.09 K/uL (0-0.50); Eosinophils % (auto) 3.9 %; Hematocrit (blood only) 22.1 % (37.0-47.0); Hemoglobin 7.5 g/dl (12.0-16.0); Immature Granulocytes # (auto) 0.07 K/uL (0.01-0.20); Lymphocytes # (auto) 0.13 K/uL (1.2-3.4); Lymphocytes % (auto) 5.6 %; Mean Corpuscular Hemoglobin 33.8 pg (25.0-34.0); Mean Corpuscular Hgb Conc 33.9 g/dL (32.0-36.0); Mean Corpuscular Volume 99.5 fL (80.0-100.0); Mean Platelet Volume 12.3 fL (9.4-12.4); Monocytes # (auto) 0.27 K/uL (0.11-0.59); Monocytes % (auto) 11.6 %; Neutrophils # (auto) 1.75 K/uL (1.40-6.50); Nucleated RBC # (auto) 0.03 K/uL (0-0.12); Nucleated RBC % (auto) 1.3 %; Platelet Count 72 K/uL (130-400); RDW Coefficient of Variation 15.5 % (11.5-14.5); RDW Standard Deviation 55.8 fL (36.4-46.3); Red Blood Count 2.22 M/uL (4.20-5.40); White Blood Count 2.33 K/ul (4.8-10.8)
[2022-12-12 08:36] LABS: Tear Drop Cells 1+
[2022-12-12 10:00] LABS: BUN Creatinine Ratio 6.2 (10-20); Creatinine Clr Calc Pharmacy 67.5 ml/min; Est GFR (African American) 106.5 ml/min; Est GFR (Non-African American) 91.9 ml/min; Magnesium 2.1 mg/dl (1.7-2.4); Potassium 4.2 mmol/L (3.5-5.1)
[2022-12-12] MEDS: POT PHOSPHATE MONOBASIC W/ SOD TAB PO SCH ×3 (12:18→20:17)
--- NOTE | 2022-12-12 15:11 | Hospitalist Progress Note ---
Date of Service December 12, 2022 Assessment & Plan (1) Acute dehydration: Plan: Admitted to telemetry Patient presenting from home after several near syncopal events after standing from bed. Patient with history of metastatic pancreatic adenocarcinoma, currently on chem otherapy, last infusion one week ago. Pancytopenia 2/2 antineoplastic chemotherapy. Suspect near syncope due to hypovolemia due to dehydration chemotherapy and diarrhea History of orthostatic hypotension, on midodrine h/o cdiff with ongoing diarrhea, cdiff was negative. tolerating PO and rehydrating well orally Monitor orthostatic BPs, continue home dose midodrine. Phos still low at 2.0-replacement given. (2) Antineoplastic chemotherapy induced pancytopenia: Plan: WBC count improving, neutropenia has resolved. Infection has been ruled out and antibiotics have been stopped. H/H low but stable. No active bleeding. Cont monitoring CBC intermittently. (3) Pancreatic cancer: Plan: s/p Whipple, currently on chemo With mets to lung and retroperitoneal mass --s/p radiation Follows with Dr. Ortiz Torres (4) History of pulmonary embolism: (5) History of DVT (deep vein thrombosis): Plan: Continue Eliquis, on low-dose secondary to history of HHT DVT PROPHYLAXIS On Eliquis Full Code Dispo-to [facility] tomorrow. Nori Pierce DO [facility] Hospitalist Admission and Anticipated Discharge Date Admission Date: December 10, 2022 Subjective 67 yo F with pancreatic cancer presents with weakness UTI ruled out feeling improved overall today but still weak requiring rehab as a transition to home stopping all antibiotics and patient agrees wtih this her is at bedside and we discussed all her labwork and the trend of her WBC and neutrophils Still with 3+ stools today. Review of Systems Review of Systems: All systems were reviewed and negative except as indicated on subjective above. Physical Exam Physical Exam: CONSTITUTIONAL: WNWD, vitals as above, fatigued, NAD EYES: normal conjunctivae, no scleral icterus, ENT: external ear and nose normal, MMM NECK: trachea midline RESPIRATORY: clear to auscultation bilaterally, no crackles, rales or wheezes, normal respiratory effort CARDIOVASCULAR: regular rate and rhythm, S1 and 2 heard without murmurs, gallops or rubs, no JVD, no peripheral edema CHEST: inspection of chest was normal GASTROINTESTINAL: soft, nontender, ND, no guarding MUSCULOSKELETAL: strength 5/5 throughout, head is normocephalic and atraumatic, SKIN: warm and dry NEUROLOGIC: CN 2-12 grossly intact, no sensory deficit, normal cognition, normal speech, no tremor PSYCHIATRIC: alert cooperative and oriented to person, place and time. Euthymic mood, makes good eye contact, language grossly intact, recent and remote memory grossly intact. Results & Data Results & Data Vital Signs (Past 12 Hours) Vital Signs Temp Pulse Pulse Resp BP Pulse Ox O2 Del Method 12/12/22 11:26 36.7 C 82 18 110/67 98 Room Air 12/12/22 07:38 36.7 C 80 18 109/66 97 Room Air 12/12/22 06:56 98 H Laboratory Results Short CBC 12/11/22 12/12/22 Range/Units 21:08 07:46 WBC 1.55 L 2.33 L (4.8-10.8) K/ul Hgb 7.7 L 7.5 L (12.0-16.0) g/dl Hct 22.7 L 22.1 L (37.0-47.0) % Plt Count 66 L 72 L (130-400) K/uL BMP 12/11/22 12/12/22 12/12/22 21:17 07:46 07:47 Sodium 139 Cancelled Cancelled Potassium 3.2 L Cancelled Cancelled Chloride 114 H Cancelled Cancelled Carbon Dioxide 19 L Cancelled Cancelled BUN 6 Cancelled Cancelled Creatinine 0.66 Cancelled Cancelled Glucose 124 H Cancelled Cancelled Calcium 6.9 L Cancelled Cancelled 12/12/22 09:21 Sodium 139 Potassium 4.2 D Chloride 114 H Carbon Dioxide 20 L BUN 4 L Creatinine 0.65 Glucose 162 H Calcium 7.0 L Liver Function 12/11/22 12/11/22 Range/Units 21:08 21:17 Total Bilirubin 0.5 0.5 (0.2-1.0) mg/dl Direct Bilirubin 0.0 (0-0.2) mg/dl AST 55 H 55 H (13-39) U/L ALT 44 44 (7-52) U/L Alkaline Phosphatase 108 H 107 H (34-104) U/L Albumin 2.2 L 2.2 L (3.4-5.0) gm/dl Medications Administered Current Inpatient Medications Acetaminophen (Acetaminophen 325 Mg Tab) 650 mg PO Q4H PRN PRN Reason: pain/fever Stop: 01/09/23 17:31 Lipase/Protease/Amylase (Pancreaze (Lipase 10,500u) Cap) 3 cap PO TIDM [facility] Stop: 01/09/23 17:31 Last Admin: 12/12/22 11:44 Dose: 3 cap Lipase/Protease/Amylase (Pancreaze (Lipase 10,500u) Cap) 2 cap PO BID PRN PRN Reason: WITH SNACKS Stop: 01/09/23 18:19 Apixaban (Apixaban 2.5 Mg Tab) 1.25 mg PO BID [facility] Stop: 01/09/23 20:59 Last Admin: 12/12/22 07:53 Dose: 1.25 mg Gabapentin (Gabapentin 400 Mg Cap) 400 mg PO TID [facility] Stop: 01/09/23 20:59 Last Admin: 12/11/22 22:21 Dose: Not Given Heparin Sodium (Beef Lung) (Heparin 10 Unit/Ml 5 Ml Flush) 5 ml FLUSH PRN PRN PRN Reason: Flush Stop: 01/11/23 00:11 Loperamide HCl (Loperamide Hcl 2 Mg Cap) 2 mg PO UD PRN PRN Reason: Diarrhea Stop: 01/10/23 10:26 Last Admin: 12/12/22 15:47 Dose: 2 mg Loratadine (Loratadine 10 Mg Tab) 10 mg PO QAM [facility] Stop: 01/10/23 08:59 Last Admin: 12/12/22 07:53 Dose: 10 mg Midodrine (Midodrine Hcl 2.5 Mg Tab) 5 mg PO TID@0700,1200,1700 [facility] Stop: 01/10/23 20:59 Last Admin: 12/12/22 11:45 Dose: 5 mg Ondansetron HCl (Ondansetron Inj 2 Mg/Ml 2 Ml Vial) 4 mg IV Q6H PRN PRN Reason: Nausea Stop: 01/09/23 17:31 Pantoprazole Sodium (Pantoprazole 40 Mg Tab) 40 mg PO QAM [facility] Stop: 01/10/23 08:59 Last Admin: 12/12/22 07:52 Dose: 40 mg Potassium Phosphate (Pot Phosphate Monobasic W/ Sod Tab) 2 tab PO QID [facility] Stop: 12/14/22 12:59 Last Admin: 12/12/22 12:18 Dose: 2 tab
[2022-12-12] MEDS: GABAPENTIN 400 MG CAP PO SCH (20:11)
[2022-12-12] MEDS ORDERED: ALBUMIN 25% 100 mL 25 GM/100 ML VIAL IV ONE (22:00)
[2022-12-13] MEDS: LOPERAMIDE HCL 2 MG CAP PO PRN ×2 (06:24→12:30)
[2022-12-13 06:29] LABS: Hematocrit (blood only) 22.1 % (37.0-47.0); Hemoglobin 7.6 g/dl (12.0-16.0); Mean Corpuscular Hemoglobin 33.9 pg (25.0-34.0); Mean Corpuscular Hgb Conc 34.4 g/dL (32.0-36.0); Mean Corpuscular Volume 98.7 fL (80.0-100.0); Mean Platelet Volume 12.3 fL (9.4-12.4); Platelet Count 67 K/uL (130-400); RDW Coefficient of Variation 16.1 % (11.5-14.5); Red Blood Count 2.24 M/uL (4.20-5.40); White Blood Count 1.56 K/ul (4.8-10.8)
[2022-12-13 06:47] LABS: BUN Creatinine Ratio 6.5 (10-20); Creatinine Clr Calc Pharmacy 70.8 ml/min; Est GFR (African American) 108.1 ml/min; Est GFR (Non-African American) 93.3 ml/min; Magnesium 1.9 mg/dl (1.7-2.4); Phosphorus 2.6 mg/dl (2.5-4.9); Potassium 3.8 mmol/L (3.5-5.1)
[2022-12-13] MEDS: PANCREAZE (LIPASE 10,500U) CAP PO SCH ×3 (07:50→16:43)
[2022-12-13] MEDS: GABAPENTIN 400 MG CAP PO SCH ×3 (08:38→22:09)
[2022-12-13] MEDS: APIXABAN 2.5 MG TAB PO SCH ×2 (08:38→22:09)
[2022-12-13] MEDS: MIDODRINE HCL 2.5 MG TAB PO SCH ×3 (08:39→16:40)
[2022-12-13] MEDS: LORATADINE 10 MG TAB PO SCH (08:40)
[2022-12-13] MEDS: PANTOprazole 40 MG TAB PO SCH (08:40)
[2022-12-13] MEDS: POT PHOSPHATE MONOBASIC W/ SOD TAB PO SCH ×4 (08:40→22:09)
--- NOTE | 2022-12-13 10:59 | Hospitalist Progress Note ---
Date of Service December 13, 2022 Assessment & Plan (1) Acute dehydration: Plan: Patient presented from home after several near syncopal events after standing from bed. Patient with history of metastatic pancreatic adenocarcinoma, currently on chemotherapy, last infusion one week ago. Pancytopenia 2/2 antineoplastic chemotherapy. Suspect near syncope due to hypovolemia due to dehydration chemotherapy and diarrhea History of orthostatic hypotension, on midodrine H/o cdiff with ongoing diarrhea C diff was negative on admission Tolerating po diet and hydration Persistent diarrhea likely due to chemotherapy based on hx However considering her persistent diarrhea, orthostatic dizziness, pancytopenia, will get GI input Get stool PCR Continue imodium prn Monitor electrolytes (2) Antineoplastic chemotherapy induced pancytopenia: Plan: WBC is 1.56K today Neutropenia has resolved. Infectious workup negative so far Monitor (3) Pancreatic cancer: Plan: s/p Whipple, currently on chemo With mets to lung and retroperitoneal mass --s/p radiation Follows with Dr. Ortiz Torres (4) History of pulmonary embolism: (5) History of DVT (deep vein thrombosis): Plan: Continue Eliquis, on low-dose secondary to history of HHT DVT PROPHYLAXIS On Eliquis Full Code I spent a total of 40 minutes coordinating, documenting and providing care for this patient excluding time spent in performance of separately billed services Admission and Anticipated Discharge Date Admission Date: December 10, 2022 Subjective Patient seen and examined Reports orthostatic dizziness is improved. However, stated she continues to have watery nonbloody diarrhea. She denied abd pain, fever, chills, nausea, vomiting Denied chest pain, cough, shortness of breath Physical Exam Constitutional: + well hydrated and + thin; no acute distress Eyes: PERRL, conjunctivae normal, anicteric sclerae ENMT: external ear and nose normal, oropharynx normal Respiratory: normal respiratory effort, lungs clear to auscultation Cardiovascular: Rate/Rhythm: regular rate and regular rhythm S1 S2 Gastrointestinal (Abdomen): normal bowel sounds, soft, nontender, no hepatosplenomegaly Neurologic: PERRL, EOMI, accommodation nl, no face palsy, no dysarthria Psychiatric: A+Ox3, euthymic affect Results & Data Results & Data Vital Signs (Past 12 Hours) Vital Signs Temp Pulse Resp BP Pulse Ox O2 Del Method 12/13/22 07:48 36.8 C 83 18 106/54 L 96 Room Air 12/12/22 23:30 36.8 C 82 18 101/53 L 95 Room Air Laboratory Results Abnormal lab results 12/13/22 12/13/22 Range/Units 06:15 06:15 WBC 1.56 L (4.8-10.8) K/ul RBC 2.24 L (4.20-5.40) M/uL Hgb 7.6 L (12.0-16.0) g/dl Hct 22.1 L (37.0-47.0) % RDW Std Deviation 56.0 H (36.4-46.3) fL RDW Coeff of Rajesh 16.1 H (11.5-14.5) % Plt Count 67 L (130-400) K/uL Chloride 112 H (98-107) mmol/L BUN 4 L (6-23) mg/dl BUN/Creatinine Ratio 6.5 L (10-20) Calcium 7.0 L (8.6-10.3) mg/dl
--- NOTE | 2022-12-13 12:47 | Gastrointestinal Consultation ---
Date of Consultation December 13, 2022 Assessment & Plan (1) Acute dehydration: (2) Pancreatic cancer: Pt is a 67 yo female w hx of metastatic pancreatic adenocarcinoma s/p Whipple, XRT currently on chemo, admitted for pre-syncopal episode few days ago suspected due to dehydration as she was having diarrhea. Post chemo diarrhea typical for her but usually managed and resolved within 2 days with Imodium. Cdiff negative. - Check stool cx - KUB to eval stool burden - Continue pancreatic enzymes w meals and snacks - Imodium prn diarrhea - Add Dicyclomine 10mg BID - If not improved and no infections noted, will try also bile acid binder (Questran or Colestipol), and consider Octreotide - Deferring endoscopic workup due to her being close to DC to rehab but if symptoms persist and failed management with meds, will consider repeat EGD and also Colonoscopy Supervising Physician Co-Signing Physician Notes Patient was seen and examined on 12/13 with MARIBEL Jain whose note reflects our findings and plan. History of Present Illness Reason for Consultation: Diarrhea Requesting Physician: Dr. Katherine Mane Attending Physician: Dr. Lexy Bernabe History of Present Illness Pt is a 67 yo female seen for diarrhea. She has hx of metastatic pancreatic adenocarcinoma s/p Whipple, currently on chemo, HHT, PFO, history of CVA, history of DVT and PE on reduced dose Eliquis due to HHT. She was admitted for pre-syncopal episode few days ago suspected due to dehydration. She had completed XRT and undergoing chemo for her pancreatic ca, last treatment 12/04/2022. She usually has diarrhea few days after her chemo session, which lasts x 2 days managed with Imodium. After this last round of chemo, she didn't have diarrhea until a week after and diarrhea not improved w Imodium. She denies sick contact, or antibx exposure. She denies any fever, chills, CP, SOB, abd pain, n/v. There was stool urgency after eating and nocturnal diarrhea. Had about 5 total BMs a day. She denies fatty/oily stools or rectal bleeding. Labs, CT head, CXR reviewed. She is pancytopenic, renal function normal. Cdiff negative. Pt never had Colonoscopy before. Denies family hx of colorectal ca. She reports that she had a Cologuard done a year ago which was negative. Allergies Allergy/AdvReac Type Severity Reaction Status Date / Time FILTER REQUIRED WITH IV AdvReac Unknown Uncoded 10/02/22 13:29 FLUIDS Home Medications Medication Instructions Recorded Confirmed Type loratadine 10 mg tablet (Claritin) 10 mg PO QAM 10/04/19 12/10/22 History apixaban 2.5 mg tablet (Eliquis) 1.25 mg PO BID 01/07/21 12/10/22 History pantoprazole 40 mg granules 40 mg PO QAM 01/07/21 12/10/22 History delayed-release for susp in packet (Protonix) calcium carbonate 600 mg-vitamin 2 tab PO DAILY 08/12/22 12/10/22 History D3 10 mcg (400 unit) tablet (Calcium 600 + D(3)) lzslfhwv-ddpuxnd-uztw-lutein tablet 1 tab PO QAM 08/12/22 12/10/22 History ondansetron 4 mg disintegrating 4 mg PO Q8H PRN nausea and 08/14/22 12/10/22 Rx tablet vomiting #30 tabs uylmqs-kypvbtvi-cwzmegj 3 cap PO WM 09/21/22 12/10/22 History 36,000-114,000-180,000 unit capsule,delay rel (Creon) megestrol 20 mg tablet 20 mg PO TID PRN appetitie 10/09/22 12/10/22 History gabapentin 400 mg capsule 400 mg PO TID 12/10/22 12/10/22 History dicyclomine 10 mg capsule 10 mg PO BID #20 caps 12/14/22 Rx diphenoxylate-atropine 2.5 1 tab PO TID PRN diarrhea #30 tabs 12/14/22 Rx mg-0.025 mg tablet midodrine 5 mg tablet 5 mg PO TID #90 tabs 12/14/22 12/10/22 Rx Patient History Medical History Anemia Closed fracture of right hip requiring operative repair with malunion History of Clostridioides difficile colitis History of DVT (deep vein thrombosis) History of pulmonary embolism Left hemiparesis Orthostatic hypotension Pancreatic cancer Metastatic pancreatic adenocarcinoma Pancytopenia Patent foramen ovale Severe malnutrition Stroke Telangiectasia Thrombocytopenia Surgical History History of ERCP 07/05/2019 - biliary stricture, adenocarcinoma on cytology 08/28/2019 - biliary stricture, stent replaced History of esophagogastroduodenoscopy (EGD) EGD with EUS. 07/10/2019. pancreatic adenocarcinoma, enlarged lymph node, GB sludge History of Whipple procedure Family History Mother , age 86 C. diff Cancer possible pancreas Father , age 82 prostate cancer No problems noted. Brother Cancer prostate met cancer and melanoma Brother Cancer melanoma Sister Dnmgp-Biqfg-Cxtnf disease Sister No problems noted. Son No problems noted. Son No problems noted. 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 Other Information That Helps Us Care for You: No Feels Safe at Home: Yes Safety Concerns: Feels Safe At This Time Childhood Exposure to Second-Hand Smoke: No caffeine: Yes (one cup per day ) during the past year weight has: decreased > 10 lbs Dental Care, Regularly: Yes Physical Activity Frequency: 1-2 Times per Week Seatbelt Use: always Sunscreen Use: Yes Assistive Devices: Cane and Walker Review of Systems Review of Systems: All systems reviewed & are unremarkable except as noted in HPI & below Physical Exam Constitutional: WD/WN, vitals as above well groomed, cooperative and comfortable Eyes: PERRL, conjunctivae normal, anicteric sclerae ENMT: external ear and nose normal, oropharynx normal Respiratory: normal respiratory effort, lungs clear to auscultation Cardiovascular: RRR, no murmur, no edema Gastrointestinal (Abdomen): normal bowel sounds, soft, nontender, no hepatosplenomegaly Skin: no rashes, warm and dry no jaundice Neurologic: Motor/Sensory: no asterixis Psychiatric: A+Ox3, euthymic affect Lymphatic: no lymphedema Results & Data Vital Signs (Past 12 Hours) Vital Signs Temp Pulse Resp BP Pulse Ox O2 Del Method 12/13/22 07:48 36.8 C 83 18 106/54 L 96 Room Air
[2022-12-13] MEDS ORDERED: DIPHENOXYLATE/ATROPINE 2.5/0.025MG TAB PO PRN (15:52)
--- NOTE | 2022-12-13 15:53 | XRay Report ---
KUB CLINICAL HISTORY: Diarrhea. FINDINGS: 2 AP supine abdominal radiographs are compared to study dated 09/07/2020 and correlated with abdominal CT dated 08/13/2022. There is a nonobstructed abdominal bowel gas pattern. Only mild fecal re tention is seen throughout the colon. Suture material and surgical clips project over the upper abdom en. Additional clips project over the peripheral left upper quadrant. No evidence of intraperitoneal free air is seen on these supine images. There are no abnormal abdominal calcifications. The skeletal structures are osteopenic. Lumbosacral spondylosis is observed. Postsurgical change is partially vis ualized in the right proximal femur. There is a small left pleural effusion with left basilar consoli dation. IMPRESSION: 1. Nonobstructed abdominal bowel gas pattern. 2. Small left pleural effusion with left basilar consolidation. Electronically signed by: Latrell San M.D. 12/13/2022 3:52 PM
[2022-12-13] MEDS: DICYCLOMINE HCL 10 MG CAP PO SCH (22:09)
[2022-12-14] MEDS: LOPERAMIDE HCL 2 MG CAP PO PRN (05:42)
[2022-12-14 06:54] LABS: Calcium 6.8 mg/dl (8.6-10.3); Magnesium 1.8 mg/dl (1.7-2.4); Potassium 3.4 mmol/L (3.5-5.1)
[2022-12-14 07:00] LABS: BUN Creatinine Ratio 7.4 (10-20); Creatinine Clr Calc Pharmacy 64.5 ml/min; Est GFR (African American) 104.9 ml/min; Est GFR (Non-African American) 90.5 ml/min; Phosphorus 2.9 mg/dl (2.5-4.9)
[2022-12-14 07:41] LABS: Adenovirus F 40/41 PCR Not Detected (NotDetected); Astrovirus PCR Not Detected (NotDetected); Campylobacter PCR Not Detected (NotDetected); Cryptosporidium PCR Not Detected (NotDetected); Cyclospora cayetanensis PCR Not Detected (NotDetected); Entamoeba histolytica PCR Not Detected (NotDetected); Enteroaggregative E.coli(EAEC) Not Detected (NotDetected); Enteropathogenic E.coli (EPEC) Not Detected (NotDetected); Enterotoxigenic E.coli (ETEC) Not Detected (NotDetected); Giardia lamblia PCR Not Detected (NotDetected); Norovirus GI/GII PCR Not Detected (NotDetected); Plesiomonas shigelloides PCR Not Detected (NotDetected); Rotavirus A PCR Not Detected (NotDetected); Salmonella PCR Not Detected (NotDetected); Sapovirus PCR Not Detected (NotDetected); Shiga-like Toxin E.coli (STEC) Not Detected (NotDetected); Shigella/Enteroinvasive E.coli Not Detected (NotDetected); Vibrio cholerae PCR Not Detected (NotDetected); Vibrio species PCR Not Detected (NotDetected); Yersinia enterocolitica PCR Not Detected (NotDetected)
[2022-12-14 07:49] VITALS: TEMP 98.2
[2022-12-14] MEDS: PANCREAZE (LIPASE 10,500U) CAP PO SCH ×2 (07:50→11:54)
[2022-12-14] MEDS: APIXABAN 2.5 MG TAB PO SCH (07:52)
[2022-12-14] MEDS: MIDODRINE HCL 2.5 MG TAB PO SCH ×2 (07:52→11:54)
[2022-12-14] MEDS: DICYCLOMINE HCL 10 MG CAP PO SCH (07:53)
[2022-12-14] MEDS: PANTOprazole 40 MG TAB PO SCH (07:54)
[2022-12-14] MEDS: GABAPENTIN 400 MG CAP PO SCH ×2 (07:54→14:35)
[2022-12-14] MEDS: POT PHOSPHATE MONOBASIC W/ SOD TAB PO SCH (07:54)
[2022-12-14] MEDS: LORATADINE 10 MG TAB PO SCH (07:54)
[2022-12-14 09:08] LABS: Hematocrit (blood only) 24.4 % (37.0-47.0); Hemoglobin 8.1 g/dl (12.0-16.0); Mean Corpuscular Hgb Conc 33.2 g/dL (32.0-36.0); Mean Corpuscular Volume 102.5 fL (80.0-100.0); Mean Platelet Volume 12.8 fL (9.4-12.4); Platelet Count 84 K/uL (130-400); RDW Coefficient of Variation 17.3 % (11.5-14.5); RDW Standard Deviation 61.9 fL (36.4-46.3); Red Blood Count 2.38 M/uL (4.20-5.40); White Blood Count 2.06 K/ul (4.8-10.8)
[2022-12-14] MEDS ORDERED: DIPHENOXYLATE/ATROPINE 2.5/0.025MG TAB PO PRN (10:28)
--- NOTE | 2022-12-14 10:31 | Gastroenterology Progress Note ---
Date of Service December 14, 2022 Assessment & Plan (1) Acute dehydration: (2) Pancreatic cancer: Plan: Pt is a 67 yo female w hx of metastatic pancreatic adenocarcinoma s/p Whipple, XRT currently on chemo, admitted for pre-syncopal episode few days ago suspected due to dehydration as she was having diarrhea. Post chemo diarrhea typical for her but usually managed and resolved within 2 days with Imodium. Cdiff and stool cx negative. KUB wo sign of obstruction or constipation. She is clinically improved - Continue pancreatic enzymes w meals and snacks - Dicyclomine 10mg BID - Lomotil 1 tab TID prn diarrhea - Ok to hold Imodium and use Lomotil for now. - F/U in GI clinic in 4 to 6 weeks (pt anticipating DC to rehab), to discuss endoscopic evaluations. - GI to sign off; pls recall prn Admission and Anticipated Discharge Date Admission Date: December 10, 2022 Supervising Physician Co-Signing Physician Notes I have seen and examined the patient with MARIBEL Jain whose note reflects our findings and plan. Clinically improving with Lomotil. Agree with mgt recommendations. Subjective Patient reports that diarrhea and stool urgency are overall improved. She was able to enjoy dinner without rushing to the bathroom to defecate afterwards. Overnight she had about 2 bowel movements, the first 1 being a very small amount. She feels that the stools are also firming up a little bit. Denies any rectal bleeding. She feels that the Lomotil given yesterday made the most significant difference. Review of Systems Review of Systems: All systems reviewed & are unremarkable except as noted in HPI & below Physical Exam Constitutional: WD/WN, vitals as above well groomed, cooperative and comfortable Eyes: PERRL, conjunctivae normal, anicteric sclerae ENMT: external ear and nose normal, oropharynx normal Respiratory: normal respiratory effort, lungs clear to auscultation Cardiovascular: RRR, no murmur, no edema Gastrointestinal (Abdomen): normal bowel sounds, soft, nontender, no hepatosplenomegaly Skin: no rashes, warm and dry no jaundice Neurologic: Motor/Sensory: no asterixis Psychiatric: A+Ox3, euthymic affect Lymphatic: no lymphedema Results & Data Vital Signs (Past 12 Hours) Vital Signs Temp Pulse Resp BP Pulse Ox O2 Del Method 12/14/22 07:48 36.8 C 91 H 18 105/63 92 Room Air 12/13/22 22:48 37.1 C 79 16 94/54 L 95 Room Air
[2022-12-14 11:44] VITALS: O2SAT 96
--- NOTE | 2022-12-14 12:05 | Discharge Summary ---
Date of Service December 14, 2022 Admission HPI Per Admitting Provider 67 year old female with PMH metastatic pancreatic adenocarcinoma s/p Whipple, currently on chemo, HHT, PFO, history of CVA, history of DVT and PE on reduced dose Eliquis due to HHT, and other problems listed below who presents to the ED for evaluation of nearly passing episodes. Patient currently on chemotherapy, last treatment on 12/04/2022. Patient typically struggles with diarrhea after chemotherapy. Yesterday, patient's reports that the patient was up most the day playing [employer] and when she came home she was very fatigued. Overnight, every time patient got up to use the bedside toilet, she would appear as if she was passing out and was shaking. states that these episodes were brief and patient was able to get back to bed. This happened again this morning and patient was brought to the ED for further evaluation. Patient reports she does not remember these events. States that she does not remember feeling lightheaded or dizzy. No other recent illnesses, fevers, chills. Denies abdom inal pain, nausea, vomiting. Appetite has been fair. No urinary symptoms. In the ED, CBC shows pancytopenia WBC 0.6K, Hgb 8.0, platelet 82, ANC 510. Patient was given IV cefepime, IV Vanco, IVF. Admission Exam Per Admitting Provider Constitutional: + ill appearing and + thin; no acute distress Eyes: PERRL, conjunctivae normal, anicteric sclerae ENMT: external ear and nose normal, oropharynx normal Respiratory: normal respiratory effort, lungs clear to auscultation Cardiovascular: Rate/Rhythm: regular rate and regular rhythm Vessels: normal peripheral pulses Extremities: no edema Gastrointestinal (Abdomen): normal bowel sounds, soft, nontender, no hepatosplenomegaly Musculoskeletal: no cyanosis or clubbing, extremities motor strength 5/5 Skin: no rashes, warm and dry Neurologic: PERRL, EOMI, accommodation nl, no face palsy, no dysarthria Psychiatric: A+Ox3, euthymic affect Principal Diagnosis Near syncope Dehydration Orthostatic hypotension Diarrhea Discharge Exam Constitutional + well hydrated and + thin; no acute distress Eyes PERRL, conjunctivae normal, anicteric sclerae ENMT external ear and nose normal, oropharynx normal Respiratory normal respiratory effort, lungs clear to auscultation Cardiovascular Rate/Rhythm: regular rate and regular rhythm S1 S2 Gastrointestinal (Abdomen) normal bowel sounds, soft, nontender, no hepatosplenomegaly Neurologic PERRL, EOMI, accommodation nl, no face palsy, no dysarthria Psychiatric A+Ox3, euthymic affect Discharge Data Allergies Allergy/AdvReac Type Severity Reaction Status Date / Time FILTER REQUIRED WITH IV AdvReac Unknown Uncoded 10/02/22 13:29 FLUIDS Consultations 12/10/22 13:41 ED Decision to Admit Stat 12/13/22 10:53 Consult Gastroenterology Routine Ordered Studies 12/10/22 12:27 CT head/brain wo con Stat Hospital Course (1) Acute dehydration: Patient presented from home after several near syncopal events after standing from bed. Patient with history of metastatic pancreatic adenocarcinoma, currently on chemotherapy, last infusion one week ago. Pancytopenia 2/2 antineoplastic chemotherapy. Suspect near syncope due to hypovolemia due to dehydration, chemotherapy and diarrhea History of orthostatic hypotension, on midodrine H/o c diff in the past C diff was negative on admission Stool PCR negative GI evaluated Patient started on dicyclomine bid and antidiarrhea changed to lomotil 1 tab TID PRN Patient to follow up with GI outpatient For orthostatic hypotension, patient's midodrine increased to 5mg TID Check BMP, mag, phos at rehab next week (2) Antineoplastic chemotherapy induced pancytopenia: WBC is 2.06K today Neutropenia has resolved. Infectious workup negative so far (3) Pancreatic cancer: s/p Whipple, currently on chemo With mets to lung and retroperitoneal mass --s/p radiation Follows with Dr. Ortiz Torres (4) History of pulmonary embolism: (5) History of DVT (deep vein thrombosis): Continue Eliquis, on low-dose secondary to history of HHT Patient discharged to [facility] for rehab Total Time Total Time Spent Total Time Spent (In Minutes): 35 Total Time Includes: Examination of the Patient, Discharge Planning and Medication Reconciliation Discharge Plan Discharge Items Patient Disposition: Transfer Inpatient Rehab Fac Reason For Visit: Near syncope Discharge Diagnosis: Near syncope Dehydration Orthostatic hypotension Diarrhea Activity: Resume your previous activity Non-emergency contact: Primary Care Provider Call non-emergency contact if: you have any medication questions Follow-up/Referrals: Michelle Torres MD [Primary Care Provider] - (Date & Time 12/14/2022 3:00 PM Provider Michelle Torres MD Department General Internal Medicine [facility] ) Diet: Regular Ambulatory Orders: Basic Metabolic Panel (Routine) Timeframe: 20221218 Location: Determined by Patient Ordered By: Katherine Mane Magnesium (Routine) Timeframe: 20221218 Location: Determined by Patient Ordered By: Katherine Mane Phosphorus (Routine) Timeframe: 20221218 Location: Determined by Patient Ordered By: Katherine Mane Addtl Attending Provider Instructions: Mrs Swartz You came to the hospital after dizzy/near faint spells. You were evaluated and noted to be dehydrated You were also evaluated for your diarrhea. You are being discharged to rehab. Please ensure follow up with your Primary Doctor. Please do blood test called Basic metabolic panel on sunday to monitor your electrolytes. Your midodrine was changed to three times daily. If symptoms persist, you will need to follow up with [facility]. It was a pleasure taking care of you. Pending Studies at Discharge: No Stand-Alone Forms: My [facility] Skilled Items Patient informed of condition?: Yes DNR: No Discharge Level of Care: Acute rehab Communicable Disease: No Discharge Prognosis: Stable Lines: None Urinary Catheter: No Medications and DC Order Prescriptions: New dicyclomine 10 mg Capsule 10 mg PO BID Qty: 20 0RF diphenoxylate-atropine 2.5-0.025 mg Tablet 1 tab PO TID PRN (Reason: diarrhea) Qty: 30 0RF Continued Creon 36,000-114,000- 180,000 unit capsule,delayed release(DR/EC) 3 cap PO WM Rx Instructions: 2 caps with snacks megestrol 20 mg tablet 20 mg PO TID PRN (Reason: appetitie) pantoprazole [Protonix] [address] for susp in packet 40 mg PO QAM Eliquis 2.5 mg tablet 1.25 mg PO BID loratadine [Claritin] 10 mg Tablet 10 mg PO QAM wbxspbjw-zzbbdzt-uoal-lutein Tablet 1 tab PO QAM calcium carbonate-vitamin D3 [Calcium 600 + D(3)] 600 mg-10 mcg (400 unit) Tablet 2 tab PO DAILY ondansetron 4 mg tablet,disintegrating 4 mg PO Q8H PRN (Reason: nausea and vomiting) Qty: 30 0RF gabapentin 400 mg capsule 400 mg PO TID Changed midodrine 5 mg tablet 5 mg PO TID Qty: 90 0RF Discharge Orders: Discharge Order (Routine); Ordered 12/14/22 Ordered By: Katherine Mane Admission Data Admit Date/Time: 12/10/22 13:38 Attending Provider: Katherine Mane I. Admit Provider: Nori Pierce Primary Care Provider: Michelle Torres Other Providers: [facility] ; [facility] ; Nori Pierce ; Lexy Bernabe Other Interventions: Discharge Summary Assessment (RN) Last Done: 12/14/22 15:24
[2022-12-14 13:37] LABS: Basophils # (auto) 0.03 K/uL (0-0.2); Basophils % (auto) 1.5 %; Eosinophils # (auto) 0.13 K/uL (0-0.50); Eosinophils % (auto) 6.3 %; Immature Granulocytes # (auto) 0.02 K/uL (0.01-0.20); Lymphocytes # (auto) 0.13 K/uL (1.2-3.4); Lymphocytes % (auto) 6.3 %; Monocytes # (auto) 0.46 K/uL (0.11-0.59); Monocytes % (auto) 22.3 %; Neutrophils # (auto) 1.29 K/uL (1.40-6.50); Neutrophils % (auto) 62.6 %
[2022-12-14] MEDS ORDERED: HEPARIN 100 UNIT/ML 5ML FLUSH FLUSH STA (14:41)
[2022-12-14 15:26] VITALS: BP 105/63; PULSE 71
== END 2022-12-14 16:03 | DRG 393 ==
LOC: ED 10:58 → 2W 13:38 → SUATTDRO 13:38 → 2W 16:45

== ENCOUNTER 2023-05-13 10:33 | Inpatient (IN) ==
--- NOTE | 2023-05-13 11:31 | Emergency Department Note ---
Impression & Plan Chest pain, Pancreatic cancer, Pleural effusion ED Provider Note ED Provider Note NAME: CHARLIE DESAI AGE:67 SEX: Female : 1955 ARRIVES VIA: Private vehicle INFORMANT: Patient ED PROVIDER(s): Sigrid Chin DO CHIEF COMPLAINT: Chest pain HPI: This is a 67-year-old female who presents emergency department due to concern for chest pain. He states chest pain began earlier in the week and was then accompanied by a cough. She denies fevers or chills, denies shortness of breath. She denies any known sick contacts. Patient currently takes a maintenance oral chemotherapeutic drug as she has a history of metastatic pancreatic cancer. Patient has previously undergone surgery, radiation, and IV chemotherapy. She states she does take hydromorphone daily for her cancer related pain, and has started taking an increased dose of that over the last 3 to 4 days due to the accompanying chest pain which is new for her. She states she had 1 episode where her cough this week was productive of yellow sputum. S he denies hemoptysis. at bedside states she had had an outpatient PET scan done 2 or 3 weeks ago which did show some fluid in the lungs. He states they did speak with pulmonology regarding this and were told that should she become more symptomatic from it they would consider draining the fluid off. PAST MEDICAL HISTORY:See Below PAST SURGICAL HISTORY:See Below FAMILY HISTORY:See Below SOCIAL HISTORY:See Below HOME MEDICATIONS:See Below ALLERGIES:See Below VITALS:See Below PHYSICAL EXAMINATION: GENERAL: alert, well appearing, well nourished, no distress, non-toxic EYE EXAM: normal conjunctiva, PERRL and EOM's grossly intact OROPHARYNX: no exudate, no erythema, lips, buccal mucosa, and tongue normal and mucous membranes are moist NECK: supple, no nuchal rigidity, no adenopathy, non-tender LUNGS: Clear to auscultation. Normal chest wall mechanics, no w/r/r HEART: no murmurs, S1 normal and S2 normal ABDOMEN: abdomen soft, non-tender, normo-active bowel sounds, no masses, no rebound or guarding. BACK: Back is symmetrical on inspection and there is no deformity, no midline tenderness, no CVA tenderness. SKIN: no rashes, petechiae, orbruising UPPER EXTREMITIES: upper extremities are grossly normal. FROM, nml pulses b/l. LOWER EXTREMITIES: No pitting edema. FROM, nml pulses b/l. NEURO EXAM: Normal sensorium, cranial nerves II-XII grossly intact, normal speech, no facial droop,nogross weakness of arms, no gross weakness of legs. Gross sensation intact. No ataxia. Vital Signs: reviewed and remarkable Differential Diagnosis: acute coronary syndrome, pericarditis, pulmonary embolus, aortic dissection, pneumonia, pneumothorax, musculoskeletal, shingles, GERD. MEDICAL DECISION MAKING: This is a 67 yo female who presents due to chest for several days. VS stable and no hypoxia noted. Patient with know metastatic pancreatic cancer. She is on anticoagulation additionally. Labs drawn and sent, IV established, EKG and CXR performed and interpreted at bedside, and patient placed on telemetry. Labs reassuring, no ectopy or dysrhythmia noted on tele, and patient noted to have left pleural effusion which is worse compared to prior cxr several months ago. They were aware of fluid on the lungs as they report this was seen on recent outpatient PET scan. We discussed options of possible treatment and treatment of her pain. Patient already takes hydromorphone at home which wasn't helping her current pain. Case discussed with hospitalist team for additional evaluation and mgmt. Consultation(s): 1402: Discussed with Rolando Moctezuma hospitalist team. ER Treatment Provided: See below Diagnostics Interpreted By Me: -ECG: nsr at 75, nml axis, nml intervals, no acute ST/T wave changes -Cardiac Monitoring: An order was placed for continuous cardiac monitoring. The monitor shows a rate of 70 with normal sinus rhythm. -Laboratory studies: As stated above and show below. -Imaging studies: cxr: left pleural effusion, no CM, no wide mediastinum Triage Nursing Note Reviewed Prior/Outside Records Reviewed - reviewed recent outpatient [facility] records Past Med/Surg History Medical History Anemia Closed fracture of right hip requiring operative repair with malunion History of Clostridioides difficile colitis History of DVT (deep vein thrombosis) History of pulmonary embolism Left hemiparesis Orthostatic hypotension Pancreatic cancer Metastatic pancreatic adenocarcinoma Pancytopenia Patent foramen ovale Pleural effusion Severe malnutrition Stroke Telangiectasia Thrombocytopenia Surgical History History of ERCP 07/05/2019 - biliary stricture, adenocarcinoma on cytology 08/28/2019 - biliary stricture, stent replaced History of esophagogastroduodenoscopy (EGD) EGD with EUS. 07/10/2019. pancreatic adenocarcinoma, enlarged lymph node, GB sludge History of Whipple procedure Family History Mother , age 86 C. diff Cancer possible pancreas Father , age 82 prostate cancer No problems noted. Brother Cancer prostate met cancer and melanoma Brother Cancer melanoma Sister Pthix-Unspc-Qicvn disease Sister No problems noted. Son No problems noted. Son No problems noted. Social History Smoking Status: Never smoker Second Hand Exposure: No; Do You Dip or Chew Tobacco: No; Hx Alcohol Use: No Hx Substance Use: No Preferred Language: Greek Communication Ability: Effective Hearing Ability: Normal Lead Cashier Required: No Beliefs That Will Affect Care: None marital status: Current Living Situation: Spouse Current Living Situation Comment: home with spouse. 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 Feels Safe at Home: Yes Childhood Exposure to Second-Hand Smoke: No caffeine: Yes (one cup per day ) during the past year weight has: decreased > 10 lbs Dental Care, Regularly: Yes Physical Activity Frequency: 1-2 Times per Week Seatbelt Use: always Sunscreen Use: Yes Assistive Devices: Bedside Commode and Wheelchair Allergies Allergies Allergy/AdvReac Type Severity Reaction Status Date / Time No Known Drug Allergies Allergy Mild Flatulence Verified 05/13/23 16:41 FILTER REQUIRED WITH IV AdvReac Unknown Uncoded 05/13/23 16:42 FLUIDS Home Meds Home Medications Medication Instructions Recorded Confirmed loratadine 10 mg tablet (Claritin) 10 mg PO QAM 10/04/19 05/13/23 apixaban 2.5 mg tablet (Eliquis) 1.25 mg PO BID 01/07/21 05/13/23 calcium carbonate 600 mg-vitamin 1 tab PO BID 08/12/22 05/13/23 D3 10 mcg (400 unit) tablet (Calcium 600 + D(3)) [id number]-yswn-lutein tablet 1 tab PO QAM 08/12/22 05/13/23 megestrol 20 mg tablet 20 mg PO TID PRN appetitie 10/09/22 05/13/23 gabapentin 400 mg capsule 400 mg PO TID 12/10/22 05/13/23 hydromorphone 4 mg tablet 4 mg PO Q6H PRN Pain 05/13/23 05/13/23 [id number] See Rx Instructions .Route .COMPLEX 05/13/23 05/13/23 24,000-76,000-120,000 unit capsule,delayed rel (Creon) olaparib 150 mg tablet (Lynparza) 300 mg PO BID 05/13/23 05/13/23 ondansetron 8 mg disintegrating 8 mg PO Q8H PRN Nausea 05/13/23 05/13/23 tablet pantoprazole 40 mg tablet,delayed 40 mg PO QAM 05/13/23 05/13/23 release Previous Rx's Medication Instructions Recorded dicyclomine 10 mg capsule 10 mg PO BID #20 caps 12/14/22 diphenoxylate-atropine 2.5 1 tab PO TID PRN diarrhea #30 tabs 12/14/22 mg-0.025 mg tablet midodrine 5 mg tablet 5 mg PO TID #90 tabs 12/14/22 Results & Data (ED) Vital Signs Vital Signs - 24 hr 05/13/23 10:43 05/13/23 11:12 05/13/23 13:09 Temperature 36.8 C Temperature Source Oral Pulse Rate 78 68 Pulse Rate [Left Finger] 59 L Pulse Rhythm [Left Finger] Pulse Strength [Left Finger] Respiratory Rate 20 18 Respiratory Effort / Characteristics Respiratory Depth Respiratory Pattern Blood Pressure 122/73 Blood Pressure [Left Arm] 105/69 Blood Pressure Mean 89 Blood Pressure Mean [Left Arm] 81 Blood Pressure Position Sitting Blood Pressure Position [Left Arm] Sitting Pulse Oximetry 97 98 Oxygen Delivery Method Room Air Sepsis Recent Fever Within 48 Hours No Sepsis New/Unexplained Change in Mental Status No Sepsis Action Taken by Nursing No Action Required 05/13/23 14:38 Temperature Temperature Source Pulse Rate Pulse Rate [Left Finger] 64 Pulse Rhythm [Left Finger] Regular Pulse Strength [Left Finger] Normal Respiratory Rate 20 Respiratory Effort / Characteristics Non-Labored Spontaneous Respiratory Depth Normal Respiratory Pattern Regular Blood Pressure Blood Pressure [Left Arm] 110/64 Blood Pressure Mean Blood Pressure Mean [Left Arm] 79 Blood Pressure Position Blood Pressure Position [Left Arm] Sitting Pulse Oximetry 94 Oxygen Delivery Method Room Air Sepsis Recent Fever Within 48 Hours Sepsis New/Unexplained Change in Mental Status Sepsis Action Taken by Nursing Laboratory Data 05/13/23 11:20 05/13/23 11:20 Lab Results 05/13/23 05/13/23 05/13/23 Range/Units 11:20 11:20 11:20 WBC 5.50 (4.8-10.8) K/ul RBC 3.51 L (4.20-5.40) M/uL Hgb 11.6 L (12.0-16.0) g/dl Hct 36.1 L (37.0-47.0) % MCV 102.8 H (80.0-100.0) fL MCH 33.0 (25.0-34.0) pg MCHC 32.1 (32.0-36.0) g/dL RDW Std Deviation 57.0 H (36.4-46.3) fL RDW Coeff of Rajesh 14.9 H (11.5-14.5) % Plt Count 223 (130-400) K/uL MPV 11.5 (9.4-12.4) fL Immature Gran % (Auto) 0.4 % Neut % (Auto) 87.8 % Lymph % (Auto) 3.5 % Letcher % (Auto) 6.9 % Eos % (Auto) 0.9 % Baso % (Auto) 0.5 % Neut # (Auto) 4.83 (1.40-6.50) K/uL Lymph # (Auto) 0.19 L (1.20-3.40) K/uL Letcher # (Auto) 0.38 (0.11-0.59) K/uL Eos # (Auto) 0.05 (0.00-0.50) K/uL Baso # (Auto) 0.03 (0.00-0.20) K/uL Immature Gran # (Auto) 0.02 (0.01-0.20) K/uL PT 12.0 (9.0-12.0) Seconds INR 1.1 (0.9-1.1) Sodium 134 L (136-145) mmol/L Potassium 3.9 (3.5-5.1) mmol/L Chloride 102 (98-107) mmol/L Carbon Dioxide 28 (21-32) mmol/L Anion Gap 4 (3-11) BUN 18 (6-23) mg/dl Creatinine 0.81 (0.6-1.2) mg/dl Est Cr Clr Drug Dosing 68.0 ml/min Est GFR ( Amer) 87.1 ml/min Est GFR (Non-Af Amer) 75.2 ml/min BUN/Creatinine Ratio 22.2 H (10-20) Glucose 171 H (70-99(Fasting)) mg/dl Calcium 7.9 L (8.6-10.3) mg/dl Magnesium 1.7 (1.7-2.4) mg/dl Total Bilirubin 0.8 (0.2-1.0) mg/dl AST 43 H (13-39) U/L ALT 27 (7-52) U/L Alkaline Phosphatase 160 H (34-104) U/L Troponin I High Sens 5.7 (0-14) pg/ml B-Natriuretic Peptide (0-100) pg/ml Total Protein 5.3 L (6.0-8.3) gm/dl Albumin 2.6 L (3.4-5.0) gm/dl Globulin 2.7 (2.5-4.0) gm/dl Albumin/Globulin Ratio 1.0 (0.9-2) Lipase 6 L (11-82) U/L Procalcitonin (0-0.5) ng/ml 05/13/23 05/13/23 Range/Units 11:21 11:21 WBC (4.8-10.8) K/ul RBC (4.20-5.40) M/uL Hgb (12.0-16.0) g/dl Hct (37.0-47.0) % MCV (80.0-100.0) fL MCH (25.0-34.0) pg MCHC (32.0-36.0) g/dL RDW Std Deviation (36.4-46.3) fL RDW Coeff of Rajesh (11.5-14.5) % Plt Count (130-400) K/uL MPV (9.4-12.4) fL Immature Gran % (Auto) % Neut % (Auto) % Lymph % (Auto) % Letcher % (Auto) % Eos % (Auto) % Baso % (Auto) % Neut # (Auto) (1.40-6.50) K/uL Lymph # (Auto) (1.20-3.40) K/uL Letcher # (Auto) (0.11-0.59) K/uL Eos # (Auto) (0.00-0.50) K/uL Baso # (Auto) (0.00-0.20) K/uL Immature Gran # (Auto) (0.01-0.20) K/uL PT (9.0-12.0) Seconds INR (0.9-1.1) Sodium (136-145) mmol/L Potassium (3.5-5.1) mmol/L Chloride (98-107) mmol/L Carbon Dioxide (21-32) mmol/L Anion Gap (3-11) BUN (6-23) mg/dl Creatinine (0.6-1.2) mg/dl Est Cr Clr Drug Dosing ml/min Est GFR ( Amer) ml/min Est GFR (Non-Af Amer) ml/min BUN/Creatinine Ratio (10-20) Glucose (70-99(Fasting)) mg/dl Calcium (8.6-10.3) mg/dl Magnesium (1.7-2.4) mg/dl Total Bilirubin (0.2-1.0) mg/dl AST (13-39) U/L ALT (7-52) U/L Alkaline Phosphatase (34-104) U/L Troponin I High Sens (0-14) pg/ml B-Natriuretic Peptide 171 H (0-100) pg/ml Total Protein (6.0-8.3) gm/dl Albumin (3.4-5.0) gm/dl Globulin (2.5-4.0) gm/dl Albumin/Globulin Ratio (0.9-2) Lipase (11-82) U/L Procalcitonin 0.19 (0-0.5) ng/ml Administered Medications Acetaminophen (Acetaminophen 325 Mg Tab) 650 mg PO Q4H PRN PRN Reason: Pain or Fever Stop: 06/12/23 14:25 Last Admin: 05/15/23 12:26 Dose: 650 mg Documented By: [id number] Admin: 05/15/23 04:46 Dose: 650 mg Documented By: Admin: 05/14/23 20:15 Dose: 650 mg Documented By: Admin: 05/14/23 10:46 Dose: 650 mg Documented By: [email or web address] Lipase/Protease/Amylase (Pancreaze (Lipase 10,500u) Cap) 2 cap PO TIDM COLT Stop: 06/13/23 11:59 Last Admin: 05/15/23 12:26 Dose: 2 cap Documented By: [id number] Admin: 05/15/23 08:24 Dose: 2 cap Documented By: [id number] Admin: 05/14/23 17:28 Dose: 2 cap Documented By: [id number] Admin: 05/14/23 12:04 Dose: 2 cap Documented By: [id number] Dicyclomine HCl (Dicyclomine Hcl 10 Mg Cap) 10 mg PO BID COLT Stop: 06/12/23 20:59 Last Admin: 05/15/23 08:24 Dose: 10 mg Documented By: [id number] Admin: 05/14/23 20:15 Dose: 10 mg Documented By: Admin: 05/14/23 08:59 Dose: 10 mg Documented By: [id number] Admin: 05/13/23 20:13 Dose: 10 mg Documented By: FERN Doxycycline Hyclate (Doxycycline Hyclate 100 Mg Cap) 100 mg PO BID COLT Stop: 05/20/23 09:01 Last Admin: 05/15/23 08:24 Dose: 100 mg Documented By: [id number] Admin: 05/14/23 20:15 Dose: 100 mg Documented By: DRU Duloxetine HCl (Duloxetine Hcl 30 Mg Cap) 30 mg PO QAM COLT Stop: 06/14/23 08:59 Last Admin: 05/15/23 08:25 Dose: 30 mg Documented By: [id number] Gabapentin (Gabapentin 400 Mg Cap) 400 mg PO TID COLT Stop: 06/12/23 20:59 Last Admin: 05/15/23 08:24 Dose: 400 mg Documented By: [id number] Admin: 05/14/23 20:16 Dose: 400 mg Documented By: Admin: 05/14/23 15:15 Dose: 400 mg Documented By: [id number] Admin: 05/14/23 08:59 Dose: 400 mg Documented By: [id number] Admin: 05/13/23 20:12 Dose: 400 mg Documented By: FERN Guaifenesin (Guaifenesin 600 Mg Tabcr) 1,200 mg PO Q12 COLT Stop: 06/12/23 20:59 Last Admin: 05/15/23 08:24 Dose: 1,200 mg Documented By: [id number] Admin: 05/14/23 20:15 Dose: 1,200 mg Documented By: Admin: 05/14/23 08:59 Dose: 1,200 mg Documented By: [id number] Admin: 05/13/23 20:13 Dose: 1,200 mg Documented By: FERN Hydromorphone HCl (Hydromorphone Hcl 2 Mg Tab) 4 mg PO Q6H PRN PRN Reason: Pain Stop: 05/27/23 16:46 Last Admin: 05/15/23 04:46 Dose: 4 mg Documented By: Admin: 05/14/23 20:14 Dose: 4 mg Documented By: Admin: 05/14/23 12:03 Dose: 4 mg Documented By: [id number] Admin: 05/14/23 05:33 Dose: 4 mg Documented By: Admin: 05/13/23 23:01 Dose: 4 mg Documented By: Admin: 05/13/23 17:14 Dose: 4 mg Documented By: [id number] Ceftriaxone Sodium 2,000 mg/ (Dextrose) 70 mls @ 100 mls/hr IV Q24H [facility]; Protocol Stop: 05/15/23 17:41 Last Infusion: 05/14/23 18:22 Dose: 0 mls/hr Documented By: [id number] Admin: 05/14/23 17:28 Dose: 100 mls/hr Documented By: [id number] Infusion: 05/13/23 18:12 Dose: 0 mls/hr Documented By: [id number] Admin: 05/13/23 17:25 Dose: 100 mls/hr Documented By: [id number] Heparin Sodium/Dextrose (Heparin Sodium/Dextrose) 25,000 units in 500 mls @ 0 mls/hr IV .Q0M [facility]; Protocol Stop: 06/12/23 19:59 Last Titration: 05/15/23 11:03 Dose: 0 units/hr, 0 mls/hr Documented By: [id number] Co-signed By: PRESTON Titration: 05/15/23 07:15 Dose: 750 units/hr, 15 mls/hr Documented By: [id number] Co-signed By: DRU Admin: 05/15/23 06:14 Dose: 750 units/hr, 15 mls/hr Documented By: DRU Co-signed By: SALUD Titration: 05/15/23 06:09 Dose: 750 units/hr, 15 mls/hr Documented By: DRU Co-signed By: SALUD Titration: 05/14/23 19:36 Dose: 750 units/hr, 15 mls/hr Documented By: DRU Co-signed By: [id number] Titration: 05/14/23 11:30 Dose: 750 units/hr, 15 mls/hr Documented By: [id number] Co-signed By: DLP Titration: 05/14/23 06:49 Dose: 750 units/hr, 15 mls/hr Documented By: [id number] Co-signed By: FERN Titration: 05/14/23 03:21 Dose: 750 units/hr, 15 mls/hr Documented By: GABBIE Co-signed By: HEATH Admin: 05/13/23 19:48 Dose: 650 units/hr, 13 mls/hr Documented By: FERN Co-signed By: GABBIE Midodrine (Midodrine Hcl 2.5 Mg Tab) 5 mg PO TID@0700,1200,1600 [facility] Stop: 06/12/23 16:59 Last Admin: 05/15/23 12:26 Dose: 5 mg Documented By: [id number] Admin: 05/15/23 06:16 Dose: 5 mg Documented By: Admin: 05/14/23 17:28 Dose: 5 mg Documented By: [id number] Admin: 05/14/23 12:04 Dose: 5 mg Documented By: [id number] Admin: 05/14/23 09:00 Dose: 5 mg Documented By: [id number] Admin: 05/13/23 17:15 Dose: 5 mg Documented By: [id number] Olaparib (Lynparza)* Non-Formulary Patient's Own Med 2 each PO BID COLT Stop: 06/12/23 20:59 Last Admin: 05/15/23 08:23 Dose: 2 tabs Documented By: [id number] Admin: 05/14/23 20:17 Dose: 2 tabs Documented By: Admin: 05/14/23 08:58 Dose: 2 tabs Documented By: [id number] Admin: 05/13/23 20:09 Dose: 2 tabs Documented By: FERN Pantoprazole Sodium (Pantoprazole 40 Mg Tab) 40 mg PO QAM [facility] Stop: 06/13/23 08:59 Last Admin: 05/15/23 08:24 Dose: 40 mg Documented By: [id number] Admin: 05/14/23 09:00 Dose: 40 mg Documented By: [id number] Discontinued Medications Furosemide (Furosemide Inj 20 Mg/2 Ml Vial) 20 mg IV ONE ONE Stop: 05/13/23 16:56 Last Admin: 05/13/23 17:26 Dose: 20 mg Documented By: [id number] Heparin Sodium (Porcine) (Heparin Sod (Porcine) 1000 Unit/Ml) 2,000 units IV NOW ONE Stop: 05/14/23 03:16 Last Admin: 05/14/23 03:19 Dose: 2,000 units Documented By: GABBIE Co-signed By: HEATH Doxycycline Hyclate 100 mg/ (Dextrose) 100 mls @ 50 mls/hr IV Q12H [facility]; Protocol Stop: 05/18/23 16:59 Last Infusion: 05/14/23 06:43 Dose: 0 mls/hr Documented By: Admin: 05/14/23 05:34 Dose: 100 mls/hr Documented By: Infusion: 05/13/23 21:04 Dose: 0 mls/hr Documented By: Admin: 05/13/23 17:26 Dose: 50 mls/hr Documented By: [id number] Ioversol (Optiray 320 100ml) 92 ml IV ONCE ONE Stop: 05/13/23 16:20 Last Admin: 05/13/23 16:19 Dose: 92 ml Documented By: MARIA L Imaging Data Radiologist's Impression: Chest X-Ray 05/13/23 11:03 SINGLE VIEW CHEST CLINICAL HISTORY: Atypical chest pain FINDINGS: An AP, portable, upright chest radiograph is compared to study dated 12/10/2022 and correlated with PET/CT dated 01/02/2023. A right subclavian central venous fusion port is unchanged in position. The heart is top normal for projec tion noting atherosclerotic calcification of the thoracic aorta. There is pulmonary vascular congestion. Irregular bilateral airspace opacities may correspond to known pulmonary nodules. There are left larger than right pleural effusions with dependent consolidation. No pneumothorax is seen. The skeletal structures are osteopenic. The bony thorax is grossly intact. IMPRESSION: 1. There is mild pulmonary vascular congestion. 2. Left larger than right pleural effusions with dependent consolidation. The left pleural effusion has increased in size from 12/10/2022. 3. Ill-defined bilateral airspace opacities likely correspond to known pulmonary nodules. Correlate clinically difference of a superimposed infectious/inflammatory pneumonitis. ACT 112: Negative or not required by law. Electronically signed by: Latrell San M.D. 05/13/2023 12:40 PM Discharge Plan Visit Data Chief Complaint: Cardiac Assessment Stated Complaint: CHEST PAIN, SHORTNESS OF BREATH ED Provider: Sigrid Chin Discharge Problem: Chest pain, Pancreatic cancer, Pleural effusion Patient Disposition: Admitted As Inpatient Discharge Instructions Interventions: ED Discharge Assessment Last Done: 05/13/23 15:37
[2023-05-13 11:49] LABS: Basophils # (auto) 0.03 K/uL (0.00-0.20); Basophils % (auto) 0.5 %; Eosinophils # (auto) 0.05 K/uL (0.00-0.50); Eosinophils % (auto) 0.9 %; Hematocrit (blood only) 36.1 % (37.0-47.0); Hemoglobin 11.6 g/dl (12.0-16.0); Immature Granulocytes # (auto) 0.02 K/uL (0.01-0.20); Immature Granulocytes % (auto) 0.4 %; Lymphocytes # (auto) 0.19 K/uL (1.20-3.40); Lymphocytes % (auto) 3.5 %; Mean Corpuscular Hgb Conc 32.1 g/dL (32.0-36.0); Mean Corpuscular Volume 102.8 fL (80.0-100.0); Mean Platelet Volume 11.5 fL (9.4-12.4); Monocytes # (auto) 0.38 K/uL (0.11-0.59); Monocytes % (auto) 6.9 %; Neutrophils # (auto) 4.83 K/uL (1.40-6.50); Neutrophils % (auto) 87.8 %; Platelet Count 223 K/uL (130-400); RDW Coefficient of Variation 14.9 % (11.5-14.5); Red Blood Count 3.51 M/uL (4.20-5.40)
[2023-05-13 12:07] LABS: Albumin Level 2.6 gm/dl (3.4-5.0); BUN Creatinine Ratio 22.2 (10-20); Bilirubin,Total 0.8 mg/dl (0.2-1.0); Calcium 7.9 mg/dl (8.6-10.3); Est GFR (African American) 87.1 ml/min; Est GFR (Non-African American) 75.2 ml/min; Globulin 2.7 gm/dl (2.5-4.0); Magnesium 1.7 mg/dl (1.7-2.4); Potassium 3.9 mmol/L (3.5-5.1); Total Protein 5.3 gm/dl (6.0-8.3)
[2023-05-13 12:14] LABS: Troponin I High Sensitivity 5.7 pg/ml (0-14)
[2023-05-13 12:33] LABS: INR 1.1 (0.9-1.1)
--- NOTE | 2023-05-13 12:41 | XRay Report ---
SINGLE VIEW CHEST CLINICAL HISTORY: Atypical chest pain FINDINGS: An AP, portable, upright chest radiograph is compared to study dated 12/10/2022 and correlate d with PET/CT dated 01/02/2023. A right subclavian central venous fusion port is unchanged in position . The heart is top normal for projection noting atherosclerotic calcification of the thoracic aorta. There is pulmonary vascular congestion. Irregular bilateral airspace opacities may correspond to know n pulmonary nodules. There are left larger than right pleural effusions with dependent consolidation. No pneumothorax is seen. The skeletal structures are osteopenic. The bony thorax is grossly intact. IMPRESSION: 1. There is mild pulmonary vascular congestion. 2. Left larger than right pleural effusions with dependent consolidation. The left pleural effusion h as increased in size from 12/10/2022. 3. Ill-defined bilateral airspace opacities likely correspond to known pulmonary nodules. Correlate c linically difference of a superimposed infectious/inflammatory pneumonitis. ACT 112: Negative or not required by law. Electronically signed by: Latrell San M.D. 05/13/2023 12:40 PM
[2023-05-13 14:08] LABS: Adenovirus PCR Not Detected (NotDetected); Bordetella parapertussis PCR Not Detected (NotDetected); Bordetella pertussis PCR Not Detected (NotDetected); Chlamydia pneumoniae PCR Not Detected (NotDetected); Coronavirus 229E PCR Not Detected (NotDetected); Coronavirus CoV-2 (COVID19)PCR Not Detected (NotDetected); Coronavirus HKU1 PCR Not Detected (NotDetected); Coronavirus NL63 PCR Not Detected (NotDetected); Coronavirus OC43PCR Not Detected (NotDetected); Human Metapneumovirus PCR Not Detected (NotDetected); Influenza A PCR Not Detected (NotDetected); Influenza B PCR Not Detected (NotDetected); Mycoplasma pneumoniae PCR Not Detected (NotDetected); Parainfluenza Virus 1 PCR Not Detected (NotDetected); Parainfluenza Virus 2 PCR Not Detected (NotDetected); Parainfluenza Virus 3 PCR Not Detected (NotDetected); Parainfluenza Virus 4 PCR Not Detected (NotDetected); Respiratory Syncytial VirusPCR Not Detected (NotDetected); Rhinovirus/Enterovirus PCR Not Detected (NotDetected)
[2023-05-13] MEDS ORDERED: POLYETHYLENE (MIRALAX) 17 GM PACK PO PRN (14:26)
[2023-05-13] MEDS ORDERED: ALUMINUM/MAGNESIUM SUSP 30 ML UDC PO PRN (14:26)
[2023-05-13] MEDS ORDERED: MAGNESIUM HYDROXIDE SUSP 30 ML UDC PO PRN (14:26)
[2023-05-13] MEDS ORDERED: ONDANSETRON INJ 2 MG/ML 2 ML VIAL IV PRN (14:26)
--- NOTE | 2023-05-13 14:38 | History & Physical Report ---
Date of Service May 13, 2023 Assessment & Plan (1) Chest pain: (2) History of pulmonary embolism: (3) History of DVT (deep vein thrombosis): (4) Pancreatic cancer: (5) Pleural effusion: Plan 67 year old pleasant female presents with right sided chest pain; most likely an effusion related to her metastatic pancreatic cancer diagnosis 01/2020. Chest x- ray indicated vascular congestion with large left greater than right pleural effusion increased in size from December 2022. Recent PET scan from [facility] two weeks ago revealed some pulmonary fluid; asymptomatic at that time. Will rule out cardiac origin while trending troponin levels, obtain an ECHO, along with obtaining a chest CT and Procalcitonin and sputum culture and start Ceftriaxone with Doxycycline as she is immunocompromised. Discussed with Pulmonary who will perform a bed-side ultrasound with possible thoracentesis. Patient is receptive of this procedure if necessary. Right-sided Chest pain: Acute uncontrolled Likely secondary to pleural effusion No ECG changes indicating ACS QtC: Initial Troponin 5.7; trend x1. Do not suspect ACS or other ischemic demand Last ECHO: 08/26; no valve abnormalities and normal LV wall motion EF 55 to 60%, mild TR without PFO; PFO noted in past. Obtain current ECHO without bubble; ok for Definity Pleural effusion: acute uncontrolled Afebrile and no leukocytosis without hypoxia CXR today revealed: 1. There is mild pulmonary vascular congestion. 2. Left larger than right pleural effusions with dependent consolidation. The left pleural effusion has increased in size from 12/10/2022. 3. Ill-defined bilateral airspace opacities likely correspond to known pulmonary nodules. Correlate clinically difference of a superimposed infectious/i nflammatory pneumonitis. Pt notes fluid was noted on recent PET scan at [facility]; asymptomatic at that time Last dose of Eliquis was this AM (+) yellow sputum noted over past few days; will treat with Ceftriaxone and Doxy due to immunocompromised state x5 days Obtain Procalcitonin and sputum culture Obtain Chest CT w/wo to delineate pulmonary nodules vs effusion Discussed with Pulmonary who will perform a bed-side ultrasound with planned thoracentesis on Tuesday 05/15. Hold Eliquis and place on low dose heparin drip without bolus. History of pulmonary embolism: History of DVT: Chronic stable 01/2020 after Whipple procedure Takes Eliquis 2.5 mg twice daily was on Eliquis 5 mg but noted to have epistaxis so dose reduced History of HHT (Hereditary Hemorrhagic Telangiectasia) Pancreatic cancer: chronic stable Status post Whipple Procedure 04/[address] [facility]. Follows with Dr. Torres; last appt 01/30/23 Will notify of inpatient stay. Disposition: PCP: Dr. Torres CODE STATUS: Full Code VTE prophylaxis: On Eliquis I spent a total of 87 minutes coordinating, documenting, and providing care for this patient excluding time spent in the performance of separately billed services. All of the aforementioned completed while collaborating with the assigned attending physician for a full treatment plan. Please see their addendum for further details. History of Present Illness Chief Complaint: epigastric chest pain Primary Care Provider: Michelle Torres MD This patient is a 67 year old female that presented to the ED today with back pain and right-sided constant chest pain that she describes as 'taking her breath away'. She does note thoracic discomfort when she takes breaths, but is tender to touch at T6 spinal processes. She uses her ISB at home that does help, she was able to bring up yellow sputum. Deep breaths help her discomfort. She feels that her pain is separate from her back pain. She reports that it is worsening over the past few days. She reports that she has a deep cough that started a few days ago with yellow sputum. Denies hemoptysis or fevers. She recently started oral chemotherapy for maintenance this past Sunday (Lynparza) and follows with Dr. Torres. Does note a few episodes of diarrhea over the past few days, with watery diarrhea. She noted that she had a nodule noted in her back in October 2022 for which she had a PET scan and then they found a mass s/p biopsy for metastatic pancreatic cancer. She has a complex medical history that includes metastatic pancreatic adenocarcinoma status post Whipple procedure 04/[address] [facility], multiple lung nodules, DVT/PE in 01/2020 (on Eliquis), and a family history of hereditary hemorrhagic telangiectasia (this led to her dose reduction of Eliquis due to epistaxis.) Chest x-ray indicated vascular congestion with large left greater than right pleural effusion increased in size from December 2022. Consider infectious versus pneumonitis. Bio fire negative. She completed radiation treatment at [facility] 10/11/2022. Since October she was on gemcitabine and Abraxane every 3 weeks.She was in remission until August 2022 for which she was diagnosed with metaststic pancreatic cancer. Additionally she had a inpatient hospitalization from 12/10/2022 to 12/14/2022 with dehydration and chemo-induced diarrhea and had C-Diff. She follows also with rheumatology and pain management for which she had an appointment 04/30 for steroid injections in her lower back. Today she is not pancytopenic and electrolytes are within normal limits. Initial troponin negative. Will trend x1 but do not suspect ACS or other ischemic demand. ECG QTC 408 with an incomplete RBBB. Pt denies fevers, chills, visual or auditory changes, ESCOBEDO, dizziness, abdominal distension, appetite changes, recent falls or trauma. Appears that this unfortunate individual that presents with right sided chest pain; likely secondary to a large pleural effusion related to her metastatic pancreatic cancer. Will rule out cardiac origin while trending troponin levels, obtain an ECHO, along with obtaining a chest CT and Procalcitonin and sputum culture and start Ceftriaxone with Doxycycline. Discussed with Pulmonary who will perform a bed-side ultrasound with planned thoracentesis on Tuesday 05/15. Hold Eliquis and place on low dose heparin drip without bolus. Confirmed patient does have an advanced directive and, for now, will remain a full code while in the hospital. Patient will be admitted for further evaluation and management. Please see A/P for further details. Allergies Allergy/AdvReac Type Severity Reaction Status Date / Time FILTER REQUIRED WITH IV AdvReac Unknown Uncoded 05/13/23 12:43 FLUIDS Home Medications Medication Instructions Recorded Confirmed Type loratadine 10 mg tablet (Claritin) 10 mg PO QAM 10/04/19 05/13/23 History apixaban 2.5 mg tablet (Eliquis) 1.25 mg PO BID 01/07/21 05/13/23 History calcium carbonate 600 mg-vitamin 1 tab PO BID 08/12/22 05/13/23 History D3 10 mcg (400 unit) tablet (Calcium 600 + D(3)) winkhwdf-trscfbr-gydd-lutein tablet 1 tab PO QAM 08/12/22 05/13/23 History megestrol 20 mg tablet 20 mg PO TID PRN appetitie 10/09/22 05/13/23 History gabapentin 400 mg capsule 400 mg PO TID 12/10/22 05/13/23 History dicyclomine 10 mg capsule 10 mg PO BID #20 caps 12/14/22 05/13/23 Rx diphenoxylate-atropine 2.5 1 tab PO TID PRN diarrhea #30 tabs 12/14/22 05/13/23 Rx mg-0.025 mg tablet midodrine 5 mg tablet 5 mg PO TID #90 tabs 12/14/22 05/13/23 Rx hydromorphone 4 mg tablet 4 mg PO Q6H PRN Pain 05/13/23 05/13/23 History gzjcrn-tavyitel-kulsuja See Rx Instructions .Route .COMPLEX 05/13/23 05/13/23 History 24,000-76,000-120,000 unit capsule,delayed rel (Creon) olaparib 150 mg tablet (Lynparza) 300 mg PO BID 05/13/23 05/13/23 History ondansetron 8 mg disintegrating 8 mg PO Q8H PRN Nausea 05/13/23 05/13/23 History tablet pantoprazole 40 mg tablet,delayed 40 mg PO QAM 05/13/23 05/13/23 History release Past Med/Surg History Medical History (Updated 05/13/23 @ 14:59 by Sigrid Chin DO) Anemia Closed fracture of right hip requiring operative repair with malunion History of Clostridioides difficile colitis History of DVT (deep vein thrombosis) History of pulmonary embolism Left hemiparesis Orthostatic hypotension Pancreatic cancer Metastatic pancreatic adenocarcinoma Pancytopenia Patent foramen ovale Pleural effusion Severe malnutrition Stroke Telangiectasia Thrombocytopenia Surgical History History of ERCP 07/05/2019 - biliary stricture, adenocarcinoma on cytology 08/28/2019 - biliary stricture, stent replaced History of esophagogastroduodenoscopy (EGD) EGD with EUS. 07/10/2019. pancreatic adenocarcinoma, enlarged lymph node, GB sludge History of Whipple procedure Family History Mother , age 86 C. diff Cancer possible pancreas Father , age 82 prostate cancer No problems noted. Brother Cancer prostate met cancer and melanoma Brother Cancer melanoma Sister Klnpf-Ytosi-Jxwrc disease Sister No problems noted. Son No problems noted. Son No problems noted. 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 Resp: (-) SOB GI: (-) appetite changes, N/V/D, bowel changes : (-) urinary changes Skin: (-) rashes Psych: (-) anxiety, depression Physical Exam Physical Exam: See Dr. Mane's addendum for physical examination findings Results & Data Results & Data Vital Signs (Past 12 Hours) Vital Signs Temp Pulse Pulse Resp BP BP Pulse Ox 05/13/23 13:09 59 L 18 105/69 98 05/13/23 11:12 68 05/13/23 10:43 36.8 C 78 20 122/73 97 O2 Del Method 05/13/23 13:09 05/13/23 11:12 05/13/23 10:43 Room Air Laboratory Results Short CBC 05/13/23 Range/Units 11:20 WBC 5.50 (4.8-10.8) K/ul Hgb 11.6 L (12.0-16.0) g/dl Hct 36.1 L (37.0-47.0) % Plt Count 223 (130-400) K/uL BMP 05/13/23 11:20 Sodium 134 L Potassium 3.9 Chloride 102 Carbon Dioxide 28 BUN 18 Creatinine 0.81 Glucose 171 H Calcium 7.9 L Liver Function 05/13/23 Range/Units 11:20 Total Bilirubin 0.8 (0.2-1.0) mg/dl AST 43 H (13-39) U/L ALT 27 (7-52) U/L Alkaline Phosphatase 160 H (34-104) U/L Albumin 2.6 L (3.4-5.0) gm/dl Diagnostic Findings Chest X-Ray 05/13/23 11:03 SINGLE VIEW CHEST CLINICAL HISTORY: Atypical chest pain FINDINGS: An AP, portable, upright chest radiograph is compared to study dated 12/10/2022 and correlated with PET/CT dated 01/02/2023. A right subclavian central venous fusion port is unchanged in position. The heart is top normal for projection noting atherosclerotic calcification of the thoracic aorta. There is pulmonary vascular congestion. Irregular bilateral airspace opacities may correspond to known pulmonary nodules. There are left larger than right pleural effusions with dependent consolidation. No pneumothorax is seen. The skeletal structures are osteopenic. The bony thorax is grossly intact. IMPRESSION: 1. There is mild pulmonary vascular congestion. 2. Left larger than right pleural effusions with dependent consolidation. The le ft pleural effusion has increased in size from 12/10/2022. 3. Ill-defined bilateral airspace opacities likely correspond to known pulmonary nodules. Correlate clinically difference of a superimposed i nfectious/inflammatory pneumonitis. ACT 112: Negative or not required by law. Electronically signed by: aLtrell San M.D. 05/13/2023 12:40 PM Code Status & VTE Plan Code Status Full Code in the event of cardiac or respiratory arrest VTE Prophylaxis Plan VTE Prophylaxis will be ordered: Yes Supervising Physician Co-Signing Physician Notes 67-year-old woman with history of pancreatic cancer Status post Whipple procedure/radiation treatment, chemo, HH T, PFO, CVA, DVT and PE and reduced dose of Eliquis due to HHT who presented with right-sided chest pain. Patient reported that she had been having upper back pain that is constant not referred since October 2022. Developed right-sided lower chest pain over the past week that has worsened in the past few days, described as constant, reports occasional improvement with breathing exercises. This is associated with productive cough of whitish phlegm over the past 3 to 4 days but had turned yellowish today. Denied fevers, chills, nausea. Reported some diarrhea yesterday and today. Reported starting new oral chemo olaparib 4 days ago On exam, General: Chronically ill looking, in no distress Eyes: PERRL, conjunctivae normal, not pale, anicteric sclerae, EOM intact bilaterally ENMT: External ear and nose normal, oropharynx normal Respiratory: Normal respiratory effort, no respiratory distress, Reduced breath sounds lung bases Cardiovascular: RRR S1 S2 Chest (Breasts): Port on right anterior chest wall Gastrointestinal (Abdomen): Abdomen is not distended, soft, non-tender to palpation, no guarding, no palpable hepatosplenomegaly, normal bowel sounds Musculoskeletal: +Pedal edema (L>R: reports this is chronic) Neurologic: Alert and oriented x 3, No focal weakness, sensation grossly intact Psychiatric: Alert and oriented x 3, euthymic affect Labs notable for hemoglobin of 11.6 [improved compared to 8.1 in December 2022], MCV of 102, AST of 43, alkaline phosphatase of 160, albumin of 2.6, total protein of 5.3 My review of EKG noted normal sinus rhythm with T wave inversion in V1-2, incomplete RBBB (old) Chest x-ray showed bilateral pleural effusion with left larger than right Considering report of right-sided chest pain and productive cough, will cover with ceftriaxone and doxycycline for possible pneumonia in a patient with malignancy and chemo. We will get CT chest with and without contrast for better evaluation. monitor technician.Initial troponin is 5.7. Will monitor. Old TTE from 2020 reviewed. Get new TTE. Patient does not want it with bubble but ok with definity. Car Head Liner Installer consulted. Pulm plans to do thoracentesis in 2 days Hold home eliquis. Do low dose hep gtt for now in view of planned procedure Pain control Continue home chemo until response from Oncologist
--- NOTE | 2023-05-13 15:42 | Pulmonary Consultation ---
Date of Consultation May 13, 2023 Assessment & Plan (1) Pleural effusion: (2) Chest pain: (3) Multiple pulmonary nodules: (4) Abnormal chest CT: Plan Chest x-ray 05/13/2023 personally reviewed: Portable film, bilateral pleural effusion, left> right, patchy opacities in the right lower lobe PET/CT 01/02/2023: Small bilateral pleural effusions were appreciated, left upper lobe as well as right upper lobe pulmonary nodule (stable) 2D echo 09/02/2020: EF 55-60%, mild TR, grade 2 diastolic dysfunction -- Bilateral pleural effusion Left> right Has been present since December 2022, progressively getting worse Etiology could be underlying HFpEF with grade 2 diastolic dysfunction versus malignancy --Cough with chest congestion Follow-up procalcitonin Respiratory bio fire negative for everything Follow-up nasal MRSA -- A-fib On apixaban --History of hereditary hemorrhagic telangiectasia Plan: Last apixaban dose was 05/13/2023 in the morning, recommend holding apixaban. We will perform thoracentesis 48 hours since her last apixaban dose which will be 05/15/2020 3 in the afternoon. Consider starting heparin drip without bolus later tonight. We will need to hold heparin drip at least 4 hours before thoracentesis Recommend 2D echo to look at the cardiac function Follow BNP For now sputum culture as well as nasal MRSA Mucinex along with flutter valve and incentive spirometry Case discussed with primary team Please note the above document was generated using voice recognition software. It may contain grammatical, syntax or spelling errors.Any formal questions or concerns about the content, text or information contained within the body of this dictation should be directly addressed to the provider for clarification. History of Present Illness History of Present Illness 67-year-old female present to the hospital with complaints of worsening shortness of breath Past medical history: Pancreatic cancer s/p Whipple procedure April 2020, relapsed August 2022 s/p chemo as well as radiation, herditary hemorrhagic telangiectasias, history of stroke with left-sided paresis Pulmonary consulted for pleural effusion At the time of examination patient's was in the room. She was saturating 97-98% on room air. Not in any respiratory distress. Heart rate was in the mid 60s. She has been complaining of cough since last 3-4 days. Not able to bring up any phlegm. Does complain of chest congestion. No hemoptysis No dysuria, no hematuria, no hematochezia, no epistaxis Has on and off constipation and diarrhea which she relates to her immunotherapy pill Denies any fever or chills No headache, no blurry vision No nausea vomiting Social history: Lifetime non-smoker Allergies Allergy/AdvReac Type Severity Reaction Status Date / Time No Known Drug Allergies Allergy Mild Flatulence Verified 05/13/23 16:41 FILTER REQUIRED WITH IV AdvReac Unknown Uncoded 05/13/23 16:42 FLUIDS Home Medications Medication Instructions Recorded Confirmed Type loratadine 10 mg tablet (Claritin) 10 mg PO QAM 10/04/19 05/13/23 History apixaban 2.5 mg tablet (Eliquis) 1.25 mg PO BID 01/07/21 05/13/23 History calcium carbonate 600 mg-vitamin 1 tab PO BID 08/12/22 05/13/23 History D3 10 mcg (400 unit) tablet (Calcium 600 + D(3)) ezbalvkj-jdxlbuj-sloz-lutein tablet 1 tab PO QAM 08/12/22 05/13/23 History megestrol 20 mg tablet 20 mg PO TID PRN appetitie 10/09/22 05/13/23 History gabapentin 400 mg capsule 400 mg PO TID 12/10/22 05/13/23 History dicyclomine 10 mg capsule 10 mg PO BID #20 caps 12/14/22 05/13/23 Rx diphenoxylate-atropine 2.5 1 tab PO TID PRN diarrhea #30 tabs 12/14/22 05/13/23 Rx mg-0.025 mg tablet midodrine 5 mg tablet 5 mg PO TID #90 tabs 12/14/22 05/13/23 Rx hydromorphone 4 mg tablet 4 mg PO Q6H PRN Pain 05/13/23 05/13/23 History pblpeq-nddpgmqo-clkqrvf See Rx Instructions .Route .COMPLEX 05/13/23 05/13/23 History 24,000-76,000-120,000 unit capsule,delayed rel (Creon) olaparib 150 mg tablet (Lynparza) 300 mg PO BID 05/13/23 05/13/23 History ondansetron 8 mg disintegrating 8 mg PO Q8H PRN Nausea 05/13/23 05/13/23 History tablet pantoprazole 40 mg tablet,delayed 40 mg PO QAM 05/13/23 05/13/23 History release Patient History Medical History (Updated 05/13/23 @ 16:55 by Jose Tiwari MD, [facility]) Anemia Closed fracture of right hip requiring operative repair with malunion History of Clostridioides difficile colitis History of DVT (deep vein thrombosis) History of pulmonary embolism Left hemiparesis Orthostatic hypotension Pancreatic cancer Metastatic pancreatic adenocarcinoma Pancytopenia Patent foramen ovale Pleural effusion Severe malnutrition Stroke Telangiectasia Thrombocytopenia Surgical History History of ERCP 07/05/2019 - biliary stricture, adenocarcinoma on cytology 08/28/2019 - biliary stricture, stent replaced History of esophagogastroduodenoscopy (EGD) EGD with EUS. 07/10/2019. pancreatic adenocarcinoma, enlarged lymph node, GB s ludge History of Whipple procedure Family History Mother , age 86 C. diff Cancer possible pancreas Father , age 82 prostate cancer No problems noted. Brother Cancer prostate met cancer and melanoma Brother Cancer melanoma Sister Wyuai-Njvrb-Lwbwq disease Sister No problems noted. Son No problems noted. Son No problems noted. 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 Safe at Home: Yes Childhood Exposure to Second-Hand Smoke: No caffeine: Yes (one cup per day ) during the past year weight has: decreased > 10 lbs Dental Care, Regularly: Yes Physical Activity Frequency: 1-2 Times per Week Seatbelt Use: always Sunscreen Use: Yes Assistive Devices: Cane and Walker Review of Systems Review of Systems: All systems reviewed & are unremarkable except as noted in HPI & below Physical Exam Physical Exam: Constitutional: No acute distress HEENT: EOMI, PERRLA Respiratory system: Decreased air entry bilaterally more decreased on the left side, no wheeze, no rhonchi, mild crackles bilaterally CVS: S1-S2 positive, no murmurs or gallops Abdomen: Soft, nontender, nondistended, positive bowel sounds x4 Extremities: +2 pulses bilaterally radialis/ dorsalis pedis, no cyanosis, +1 pitting edema right lower extremity, +2 pitting edema left lower extremity (chronic) Neuro: Awake alert oriented x3, left upper and left lower extremity weakness chronic Psych: Normal mood and affect G/U: No Hines Skin: no rashes, warm and dry Lymphatic: no cervical or axillary lymphadenopathy Results & Data Results & Data Vital Signs (Past 12 Hours) Vital Signs Temp Pulse Pulse Resp BP BP Pulse Ox 05/13/23 14:38 64 20 110/64 94 05/13/23 13:09 59 L 18 105/69 98 05/13/23 11:12 68 05/13/23 10:43 36.8 C 78 20 122/73 97 O2 Del Method 05/13/23 14:38 Room Air 05/13/23 13:09 05/13/23 11:12 05/13/23 10:43 Room Air Laboratory Results 05/13/23 11:20 05/13/23 11:20 PG Care Time/CCT Total # of Minutes Spent Total Time Spent with Patient: Total time spent is greater than 50% in coordination of care (as documented) at patient's floor/unit and/or counseling patient: Coding Level of Care Code 07374 INT INP/OBS CARE 3/75MIN Diagnoses Pleural effusion J90 Chest pain R07.9 Multiple pulmonary nodules R91.[address] R93.89
--- NOTE | 2023-05-13 15:43 | Procedure Note ---
Procedure Note Date of Service May 13, 2023 Note Bedside Ultrasound: Lung: Right: Minimal right-sided pleural effusion, a lines anteriorly, B-lines posteriorly Left:-Moderate left-sided pleural effusion with atelectasis of the left lower lobe Heart: Good EF, no pericardial effusion Please note the above document was generated using voice recognition software. It may contain grammatical, syntax or spelling errors.Any formal questions or concerns about the content, text or information contained within the body of this dictation should be directly addressed to the provider for clarification. Coding CPT Codes Pulmonary/Thoracic - Pulmonary and Thoracic: 65104 US, Chest, real time with imaging documentation ([id number]) [facility] [place] Procedure Codes (Charges) Pulmonary/Thoracic Procedure 1: Pulmonary and Thoracic: 29978 US, Chest, real time with imaging documentation
[2023-05-13] MEDS ORDERED: Heparin IV Adult Wt-Based Low-Dose *NO* Bolus Protocol IV SCH (15:45)
[2023-05-13] MEDS ORDERED: OPTIRAY 320 100ml IV ONE (16:19)
[2023-05-13] MEDS ORDERED: Patient's ALLERGY Info needs ENTERED SCH (16:45)
[2023-05-13] MEDS ORDERED: FUROSEMIDE INJ 20 MG/2 ML VIAL IV ONE (16:55)
[2023-05-13] MEDS: HYDROmorphone HCL 2 MG TAB PO PRN ×2 (17:14→23:01)
[2023-05-13] MEDS: MIDODRINE HCL 2.5 MG TAB PO SCH (17:15)
[2023-05-13] MEDS: cefTRIAXone SODIUM 2,000 MG in DEXTROSE 5% 50 ML IV SCH (17:25)
[2023-05-13] MEDS: DOXYCYCLINE HYCLATE 100 MG in DEXTROSE 5% MINI-B 100 ML IV SCH (17:26)
[2023-05-13 18:32] LABS: Partial Thromboplastin Ratio 0.9; Partial Thromboplastin Time 25.6 Seconds (21.0-31.0)
--- NOTE | 2023-05-13 19:42 | CT Scan Report ---
CT SCAN OF THE CHEST WITH IV CONTRAST CLINICAL HISTORY: Pleural effusion. COMPARISON STUDY: Chest x-ray dated 05/13/2023. Chest CT dated 01/05/2020. PET/CT dated 01/02/2023. TECHNIQUE: Following the IV administration of 92 cc of Optiray 320, CT scan of the thorax was perform ed from the thoracic inlet to the upper abdomen. Images are reviewed in the axial, sagittal, and arina nal planes. IV contrast was administered without complication. A dose lowering technique was utilize d adhering to the principles of ALARA. The examination is degraded by motion artifact, as well as by streak artifact from the arms which could not be elevated above the chest. CT DOSE: 346.01 mGy.cm FINDINGS: Thyroid: Enlarged and heterogeneous consistent with goiter. Thoracic aorta: The thoracic aorta is normal in caliber and demonstrates standard 3-vessel arch anato my. No dissection is seen. Pulmonary vasculature: The pulmonary trunk is normal in caliber. There are no filling defects identif ied in the central pulmonary vessels to indicate pulmonary embolus. Note that this examination was no t protocoled for evaluation of the pulmonary arteries. Heart: A right subclavian central venous infusion port is in place. The heart is mildly enlarged and without pericardial effusion. Lungs and pleural spaces: There are moderate pleural effusions, left larger than right with dependent atelectasis. Pleural thickening and enhancement is seen in the left lower lung on image #22. These e ffusions are likely malignant. There are numerous (greater than 10) irregular pulmonary nodules scatt ered throughout both lungs, likely representing metastatic disease. A client service representative 1.2 cm right upp er lobe lesion is seen on image #39, a 2.3 cm right upper lobe lesion is seen on image #89, and a 1.4 cm left upper lobe lesion is seen on image #119. A left hilar lesion on image #134 likely measures u p to 2.9 cm. Mediastinum: There is no mediastinal lymphadenopathy. [place]: The left hilum is obscured by a left perihilar lesion. No right hilar adenopathy is clearly vasquez ntified. Axillae: There is no axillary lymphadenopathy. Upper abdomen: The liver is heterogeneous and appears steatotic. Pneumobilia is observed. There is a small hiatal hernia. Esophageal varices are suggested. Surgical clips are noted in the stomach. Intra -articular versus subcapsular fluid fluid scallops the posterior left lobe of the liver just below th e diaphragm on axial image #226. The adrenal glands appear hyperemic. There is a prevertebral/retrope ritoneal mass lesion seen below the diaphragm at L1. This partially encases the abdominal aorta and i s best seen on axial image #240. Skeletal structures: The skeletal structures are osteopenic. There is evidence of multifocal osseous metastatic disease. A large posterior right seventh rib lesion is seen on image #97. A lesion in the body of L1 is seen anteriorly on image #250, an additional smaller lesions are seen throughout the th oracic spine. IMPRESSION: 1. There is a left perihilar mass lesion as well as extensive/multifocal pulmonary metastatic disease . This appears progressive from the 01/02/2023 PET examination. Correlate with the oncological history . 2. Moderate bilateral pleural effusions, left larger than right with associated atelectasis/consolida tion of the lower lungs. These effusions are likely malignant, and the effusions have increased in si ze from 01/02/2023. Correlate clinically for evidence of pneumonia within the consolidated lungs. 3. There is evidence of multifocal osteoblastic metastatic disease. 4. There is a large confluent mass lesion in the superior retroperitoneum just above the diaphragm wh ich partially encases the abdominal aorta. 5. Loculated fluid scallops the posterior left lobe of the liver. 6. Additional findings as above. ACT 112: Negative or not required by law. Electronically signed by: Latrell San M.D. 05/13/2023 7:39 PM
[2023-05-13] MEDS: HEPARIN SODIUM/DEXTROSE 25,000 UNITS/500 ML BAG IV SCH (19:48)
[2023-05-13] MEDS: OLAPARIB PO SCH (20:09)
[2023-05-13] MEDS: GABAPENTIN 400 MG CAP PO SCH (20:12)
[2023-05-13] MEDS: DICYCLOMINE HCL 10 MG CAP PO SCH (20:13)
[2023-05-13] MEDS: guaiFENesin 600 MG TABCR PO SCH (20:13)
[2023-05-14 02:00] LABS: Hemoglobin 11.6 g/dl (12.0-16.0); Mean Corpuscular Hemoglobin 33.3 pg (25.0-34.0); Mean Corpuscular Hgb Conc 33.1 g/dL (32.0-36.0); Mean Corpuscular Volume 100.6 fL (80.0-100.0); Mean Platelet Volume 11.3 fL (9.4-12.4); Platelet Count 201 K/uL (130-400); RDW Coefficient of Variation 14.9 % (11.5-14.5); Red Blood Count 3.48 M/uL (4.20-5.40); White Blood Count 5.15 K/ul (4.8-10.8)
[2023-05-14 02:21] LABS: Albumin Globulin Ratio 0.9 (0.9-2); Albumin Level 2.6 gm/dl (3.4-5.0); BUN Creatinine Ratio 16.1 (10-20); Bilirubin,Total 0.7 mg/dl (0.2-1.0); Calcium 7.7 mg/dl (8.6-10.3); Est GFR (African American) 79.9 ml/min; Est GFR (Non-African American) 68.9 ml/min; Globulin 2.8 gm/dl (2.5-4.0); Total Protein 5.4 gm/dl (6.0-8.3)
[2023-05-14 02:38] LABS: Partial Thromboplastin Ratio 1.3; Partial Thromboplastin Time 35.8 Seconds (21.0-31.0)
[2023-05-14] MEDS ORDERED: HEPARIN SOD (PORCINE) 1000 UNIT/ML IV ONE (03:15)
[2023-05-14] MEDS: HYDROmorphone HCL 2 MG TAB PO PRN ×3 (05:33→20:14)
[2023-05-14] MEDS: DOXYCYCLINE HYCLATE 100 MG in DEXTROSE 5% MINI-B 100 ML IV SCH (05:34)
--- NOTE | 2023-05-14 08:52 | Pulmonology Progress Note ---
Date of Service May 14, 2023 Assessment & Plan (1) Pleural effusion: (2) Chest pain: (3) Multiple pulmonary nodules: (4) Abnormal chest CT: Plan Chest x-ray 05/13/2023 personally reviewed: Portable film, bilateral pleural effusion, left> right, patchy opacities in the right lower lobe PET/CT 01/02/2023: Small bilateral pleural effusions were appreciated, left upper lobe as well as right upper lobe pulmonary nodule (stable) CT chest 05/13/2023 personally reviewed: Multiple pulmonary nodularities a ppreciated bilaterally, new compared to PET/CT 12/2022 Left perihilar mass versus lymphadenopathy Moderate bilateral pleural effusion No other mediastinal lymphadenopathy 2D echo 09/02/2020: EF 55-60%, mild TR, grade 2 diastolic dysfunction -- Bilateral pleural effusion Left> right Likely malignant given the worsening as well as progressive metastatic lesions Has been present since December 2022, progressively getting worse History of HFpEF with grade 2 diastolic dysfunction versus malignancy --Cough with chest congestion Follow-up procalcitonin Respiratory bio fire negative for everything Follow-up nasal MRSA -- A-fib On apixaban --History of hereditary hemorrhagic telangiectasia Plan: Last apixaban dose was 05/13/2023 in the morning, recommend holding apixaban. We will perform thoracentesis 48 hours since her last apixaban dose which will be 05/15/2023 in the afternoon. Looking at the latest CT chest it does seem the patient likely has metastatic disease and the pleural effusion are also metastatic We will plan to do thoracentesis tomorrow Mucinex along with flutter valve and incentive spirometry Case discussed with primary team Please note the above document was generated using voice recognition software. It may contain grammatical, syntax or spelling errors.Any formal questions or concerns about the content, text or information contained within the body of this dictation should be directly addressed to the provider for clarification. Admission and Anticipated Discharge Date Admission Date: May 13, 2023 Subjective Patient seen and examined at bedside. No acute distress, no adverse events overnight She was saturating 96-97% on room air at the time of examination Denies any chest pain Shortness of breath on exertion still persist Fair appetite No nausea vomiting Review of Systems Review of Systems: All systems reviewed & are unremarkable except as noted in Subjective Physical Exam Physical Exam: Constitutional: No acute distress HEENT: EOMI, PERRLA Respiratory system: Decreased air entry bilaterally more decreased on the left side, no wheeze, no rhonchi, mild crackles bilaterally CVS: S1-S2 positive, no murmurs or gallops Abdomen: Soft, nontender, nondistended, positive bowel sounds x4 Extremities: +2 pulses bilaterally radialis/ dorsalis pedis, no cyanosis, +1 pitting edema right lower extremity, +2 pitting edema left lower extremity (chronic) Neuro: Awake alert oriented x3, left upper and left lower extremity weakness chronic Psych: Normal mood and affect G/U: No Hines Skin: no rashes, warm and dry Lymphatic: no cervical or axillary lymphadenopathy Results & Data Results & Data Vital Signs (Past 12 Hours) Vital Signs Temp Pulse Pulse Resp BP Pulse Ox O2 Del Method 05/14/23 08:03 36.7 C 82 16 92/54 L 92 Room Air 05/14/23 08:03 69 05/14/23 03:58 36.7 C 86 16 88/45 L 93 Room Air 05/14/23 01:41 73 05/13/23 23:04 36.8 C 81 16 88/44 L 93 Room Air Laboratory Results 05/14/23 01:45 05/14/23 01:45 PG Care Time/CCT Total # of Minutes Spent Total Time Spent with Patient: Total time spent is greater than 50% in coordination of care (as documented) at patient's floor/unit and/or counseling patient: Coding Level of Care Code 33241 SUB INP/OBS CARE 3/50MIN Diagnoses Pleural effusion J90 Chest pain R07.9 Multiple pulmonary nodules R91.[address] R93.89
[2023-05-14] MEDS: OLAPARIB PO SCH ×2 (08:58→20:17)
[2023-05-14] MEDS: DICYCLOMINE HCL 10 MG CAP PO SCH ×2 (08:59→20:15)
[2023-05-14] MEDS: GABAPENTIN 400 MG CAP PO SCH ×3 (08:59→20:16)
[2023-05-14] MEDS: guaiFENesin 600 MG TABCR PO SCH ×2 (08:59→20:15)
[2023-05-14] MEDS: PANTOprazole 40 MG TAB PO SCH (09:00)
[2023-05-14] MEDS: MIDODRINE HCL 2.5 MG TAB PO SCH ×3 (09:00→17:28)
--- NOTE | 2023-05-14 09:20 | Hospitalist Progress Note ---
Date of Service May 14, 2023 Assessment & Plan (1) Chest pain: (2) History of pulmonary embolism: (3) History of DVT (deep vein thrombosis): (4) Pancreatic cancer: (5) Pleural effusion: Plan 67 year old female with PMH significant for metastatic pancreatic adenocarcinoma s/p Whipple, PFO, history of CVA, history of DVT and PE admitted with chest pain in setting of progressive large pleural effusions. Right-sided Chest pain Pleural Effusion Presented with right sided chest pain Initial hs-Troponin 5.7 to 6.3, currently wnl Chest XRAY concerning for large left> R pleural effusions, advising correlation for possible pneumonia/pneumonitis CT chest notes -a left perihilar mass lesion as well as extensive/multifocal pulmonary metastatic disease that appears progressive from the 01/02/2023 PET examination. -Confirmed pleural effusions, likely malignant - evidence of multifocal osteoblastic metastatic disease. -large confluent mass lesion in the superior retroperitoneum just above the diaphragm which partially encases the abd aorta. No EKG changes indicating ACS Echo with EF 60-65%, stable with no acute changes Procal wnl, sputum cx pending Pt notes fluid was noted on recent PET scan at [facility]; asymptomatic at th at time Symptoms likely related to progressing pathology and effusions in chest Empiric rocephin and doxycycline Pulm consult, appreciate recs Pulmonary to perform bed-side ultrasound with planned thoracentesis on Tuesday 05/15. Hold Eliquis and continue heparin drip. Ankle Pain Pt states she has had chronic pain in left ankle Previously worked up but states the pain is progressing and now can't bear weight on it. Requesting MRI MRI ordered, radiologist requested updated xrays for comparison, so ordered as well Findings concerning for osteomyelitis vs. Charcot vs. malignancy Podiatry consult placed- appreciate recs History of pulmonary embolism: History of DVT: Chronic stable 01/2020 after Whipple procedure Takes Eliquis 2.5 mg twice daily was on Eliquis 5 mg but noted to have epistaxis so dose reduced History of HHT (Hereditary Hemorrhagic Telangiectasia) On heparin drip Pancreatic cancer: chronic stable Status post Whipple Procedure 04/2020 at [facility]. Follows with Dr. Torres; last appt 01/30/23 Pain control- pt agreeable to palliative Care consult to help with pain management On dilaudid, tylenol, gabapentin for pain. Pt agreeable to SNRI cymbalta as well for additional pain relief. Appreciate palliative care recs for pain control for this patient PCP: Dr. Torres CODE STATUS: Full Code VTE prophylaxis: On heparin Diet: Regular, consider nutrition eval for cachexia Admission and Anticipated Discharge Date Admission Date: May 13, 2023 Subjective Pt seen in the AM. States that she does not believe her pain is controlled at this time but otherwise no other complaints. Also requesting that an MRI of her left foot be completed for convenience while she is here. States that she has been nonweightbearing, has had it imaged about a year ago. Review of Systems Review of Systems: All systems reviewed & are unremarkable except as noted in Subjective Physical Exam Physical Exam: General: Alert, oriented. Cachectic Skin: No noted rashes or bruises Psych: Appropriate mood and affect Neuro: difficulty with movements during the exam HEENT: NC/AT CV: RRR Resp: Breath sounds clear bilaterally Abdomen: Soft, nontender, nondistended. Extremities: No edema in lower extremities bilaterally, left ankle without erythema. Results & Data Results & Data Vital Signs (Past 12 Hours) Vital Signs Temp Pulse Pulse Resp BP Pulse Ox O2 Del Method 05/14/23 08:03 36.7 C 82 16 92/54 L 92 Room Air 05/14/23 08:03 69 05/14/23 03:58 36.7 C 86 16 88/45 L 93 Room Air 05/14/23 01:41 73 05/13/23 23:04 36.8 C 81 16 88/44 L 93 Room Air
[2023-05-14] MEDS: ACETAMINOPHEN 325 MG TAB PO PRN ×2 (10:46→20:15)
[2023-05-14 11:19] LABS: Partial Thromboplastin Ratio 2.1
[2023-05-14 11:24] LABS: Partial Thromboplastin Time 60.1 Seconds (21.0-31.0)
[2023-05-14] MEDS: PANCREAZE (LIPASE 10,500U) CAP PO SCH ×2 (12:04→17:28)
--- NOTE | 2023-05-14 12:14 | Electrocardiogram Report ---
Test Reason : Blood Pressure : / mmHG Vent. Rate : 075 BPM Atrial Rate : 075 BPM P-R Int : 112 ms QRS Dur : 092 ms QT Int : 366 ms P-R-T Axes : 076 077 021 degrees QTc Int : 408 ms Poor data quality, interpretation may be adversely affected Normal sinus rhythm Incomplete right bundle branch block Abnormal ECG When compared with ECG of 10-DEC-2022 11:10, No significant change was found Confirmed by John Hathaway ([id number]) on 05/14/2023 12:14:15 PM Referred By: REFERRED SELF Confirmed By:John Hathaway
[2023-05-14] MEDS: cefTRIAXone SODIUM 2,000 MG in DEXTROSE 5% 50 ML IV SCH (17:28)
[2023-05-14] MEDS: DOXYCYCLINE HYCLATE 100 MG CAP PO SCH (20:15)
--- NOTE | 2023-05-14 22:20 | Magnetic Resonance Report ---
Exam(s): MRI LEFT ANKLE Without Contrast EXAM: MR Left Lower Extremity Without Intravenous Contrast, Ankle CLINICAL HISTORY: Reason for exam: ankle pain, unable to weightbear. TECHNIQUE: Multiplanar magnetic resonance images of the left ankle without intravenous contrast. COMPARISON: No relevant prior studies available. FINDINGS: Intact tibiotalar, subtalar, and talonavicular joints. Intact distal Achilles tendon. Mild thickening of the medial cord plantar fascia. Edema and fragmentation throughout the cuboid, base of the fourth metatarsal, and base of the fifth metatarsal, which has the appearance of osteomyelitis; however, there is no overlying ulcer. Radiographs were requested and evaluated alongside the MRI. The radiograph appearance of the cuboid also appears diffusely fragmented and sclerotic. Correlate for infection/osteomyelitis versus Charcot-type changes. Nodes, bone neoplasm versus metastatic disease is also in the differential. Normal sinus tarsi. Mild posterior tibial and flexor hallux longus tenosynovitis could Severe perineal longus tenosynovitis, preferentially located at the level of the cuboid. Mild peroneal brevis tenosynovitis. Intact anterior extensor tendons. Scarring of the lateral ligaments and syndesmotic ligaments. No osteochondral lesion of the talar dome. IMPRESSION: Sclerotic and fragmented appearance of the cuboid, base of the fourth metatarsal, and base of the fifth metatarsal. Radiographs were requested and evaluated alongside the MRI. The radiograph appearance also appears diffusely fragmented and sclerotic. Differential includes osteomyelitis, severe degenerative/Charcot-type changes, versus metastatic disease. Severe perineal longus tenosynovitis, preferentially located at the level of the cuboid. Communications: 05/14/23 20:49 Call From [facility] on 05/14 20:47 (-04:00) Electronically signed by: Caden Fox MD 05/14/23 22:19 PM
[2023-05-15] MEDS ORDERED: HEPARIN 100 UNIT/ML 5ML FLUSH FLUSH PRN (01:10)
[2023-05-15] MEDS: HYDROmorphone HCL 2 MG TAB PO PRN ×2 (04:46→14:41)
[2023-05-15] MEDS: ACETAMINOPHEN 325 MG TAB PO PRN ×3 (04:46→17:29)
[2023-05-15] MEDS: HEPARIN SODIUM/DEXTROSE 25,000 UNITS/500 ML BAG IV SCH (06:14)
[2023-05-15] MEDS: MIDODRINE HCL 2.5 MG TAB PO SCH ×3 (06:16→16:28)
[2023-05-15 06:19] LABS: Basophils # (auto) 0.05 K/uL (0.00-0.20); Basophils % (auto) 1.3 %; Eosinophils # (auto) 0.06 K/uL (0.00-0.50); Eosinophils % (auto) 1.6 %; Hematocrit (blood only) 34.2 % (37.0-47.0); Hemoglobin 11.3 g/dl (12.0-16.0); Immature Granulocytes # (auto) 0.01 K/uL (0.01-0.20); Immature Granulocytes % (auto) 0.3 %; Lymphocytes # (auto) 0.27 K/uL (1.20-3.40); Lymphocytes % (auto) 7.2 %; Mean Platelet Volume 11.4 fL (9.4-12.4); Monocytes # (auto) 0.29 K/uL (0.11-0.59); Monocytes % (auto) 7.8 %; Neutrophils # (auto) 3.06 K/uL (1.40-6.50); Neutrophils % (auto) 81.8 %; Platelet Count 174 K/uL (130-400); RDW Coefficient of Variation 15.1 % (11.5-14.5); RDW Standard Deviation 55.5 fL (36.4-46.3); Red Blood Count 3.42 M/uL (4.20-5.40); White Blood Count 3.74 K/ul (4.8-10.8)
[2023-05-15 07:02] LABS: Albumin Level 2.5 gm/dl (3.4-5.0); BUN Creatinine Ratio 18.8 (10-20); Bilirubin,Total 0.5 mg/dl (0.2-1.0); Calcium 7.5 mg/dl (8.6-10.3); Creatinine Clr Calc Pharmacy 56.9 ml/min; Est GFR (African American) 88.4 ml/min; Est GFR (Non-African American) 76.3 ml/min; Globulin 2.6 gm/dl (2.5-4.0); Magnesium 1.8 mg/dl (1.7-2.4); Phosphorus 3.1 mg/dl (2.5-4.9); Potassium 3.9 mmol/L (3.5-5.1); Total Protein 5.1 gm/dl (6.0-8.3)
[2023-05-15 07:05] LABS: Partial Thromboplastin Ratio 2.1
[2023-05-15 07:08] LABS: Partial Thromboplastin Time 60.3 Seconds (21.0-31.0)
--- NOTE | 2023-05-15 07:27 | XRay Report ---
XR foot LT 2V, XR ankle LT min 3V routine HISTORY: 67 years-old Female stat rad mri req acute pain left foot and ankle in a patient with histo ry of pancreatic carcinoma and osteoblastic skeletal metastasis. The patient is unable to bear weight . COMPARISON: MR left ankle 05/14/2023 TECHNIQUE: 3 views of the left foot with 3 views of the left ankle FINDINGS: FOOT: Moderate diffuse soft tissue swelling. There is sclerosis with a mass encasing the cuboid with exten lucian into the bases of the fourth and fifth metatarsals, and third cuneiform. There is associated fra gmentation with partial bony destruction. ANKLE: Moderate soft tissue swelling. No acute fracture or dislocation. 12 mm sclerotic lesion of the latera l talus is better seen on the MRI, likely a metastatic lesion. IMPRESSION: Osteoblastic skeletal metastasis of the midfoot, forefoot and hindfoot is most pronounced involving the cuboid with extension into the adjacent third cuneiform and bases of the fourth and fi fth metatarsals. ACT 112: Negative or not required by law. The above report was generated using voice recognition software. It may contain grammatical, syntax o r spelling errors. Electronically signed by: David Roa M.D. 05/15/2023 7:25 AM
[2023-05-15] MEDS: OLAPARIB PO SCH ×2 (08:23→19:53)
[2023-05-15] MEDS: PANCREAZE (LIPASE 10,500U) CAP PO SCH ×3 (08:24→16:28)
[2023-05-15] MEDS: PANTOprazole 40 MG TAB PO SCH (08:24)
[2023-05-15] MEDS: DICYCLOMINE HCL 10 MG CAP PO SCH ×2 (08:24→19:52)
[2023-05-15] MEDS: GABAPENTIN 400 MG CAP PO SCH ×3 (08:24→19:52)
[2023-05-15] MEDS: guaiFENesin 600 MG TABCR PO SCH ×2 (08:24→19:52)
[2023-05-15] MEDS: DOXYCYCLINE HYCLATE 100 MG CAP PO SCH ×2 (08:24→19:52)
[2023-05-15] MEDS: DULoxetine HCL 30 MG CAP PO SCH (08:25)
--- NOTE | 2023-05-15 12:31 | Pulmonology Progress Note ---
Date of Service May 15, 2023 Assessment & Plan (1) Pleural effusion: (2) Chest pain: (3) Multiple pulmonary nodules: (4) Abnormal chest CT: Plan Chest x-ray 05/13/2023 personally reviewed: Portable film, bilateral pleural effusion, left> right, patchy opacities in the right lower lobe PET/CT 01/02/2023: Small bilateral pleural effusions were appreciated, left upper lobe as well as right upper lobe pulmonary nodule (stable) CT chest 05/13/2023 personally reviewed: Multiple pulmonary nodularities appreciated bilaterally, new compared to PET/CT 12/2022 Left perihilar mass versus lymphadenopathy Moderate bilateral pleural effusion No other mediastinal lymphadenopathy 2D echo 09/02/2020: EF 55-60%, mild TR, grade 2 diastolic dysfunction -- Bilateral pleural effusion Left> right Likely malignant given the worsening as well as progressive metastatic lesions Has been present since December 2022, progressively getting worse History of HFpEF with grade 2 diastolic dysfunction versus malignancy --Cough with chest congestion Follow-up procalcitonin Respiratory bio fire negative for everything Follow-up nasal MRSA -- A-fib On apixaban --History of hereditary hemorrhagic telangiectasia Plan: Last apixaban dose was 05/13/2023 in the morning, recommend holding apixaban. Currently on Heparin gtt. Will place order for hold at 1100 for planned thoracentesis at 1500. Patient can restart Heparin after procedure versus restarting his apixaban. Mucinex along with flutter valve and incentive spirometry Please note the above document was generated using voice recognition software. It may contain grammatical, syntax or spelling errors.Any formal questions or concerns about the content, text or information contained within the body of this dictation should be directly addressed to the provider for clarification. Admission and Anticipated Discharge Date Admission Date: May 13, 2023 Supervising Physician Co-Signing Physician Notes I saw and evaluated the patient with Walter Beltran PA-C and agree with findings and plan as documented in the note. Patient seen and examined at bedside. No acute distress, no adverse events overnight She was on heparin drip. Plan will be to have a thoracentesis later today Denies any chest pain, shortness of breath is the same Fair appetite Denies any difficulty swallowing, no headache, no blurry vision Constitutional: No acute distress HEENT: EOMI, PERRLA Respiratory system: Decreased air entry bilaterally more decreased on the left side, no wheeze, no rhonchi, mild crackles bilaterally CVS: S1-S2 positive, no murmurs or gallops Abdomen: Soft, nontender, nondistended, positive bowel sounds x4 Extremities: +2 pulses bilaterally radialis/ dorsalis pedis, no cyanosis, +1 pitting edema right lower extremity, +2 pitting edema left lower extremity (chronic) Neuro: Awake alert oriented x3, left upper and left lower extremity weakness chronic Psych: Normal mood and affect G/U: No Hines Plan: Thoracentesis later today Hold heparin drip I do believe patient is most likely going to get the fluid back given the metastatic disease within the chest cavity as well as mass around the left hilum which would likely cause atelectasis of the left lower lobe In future if she gets the fluid reaccumulation at a rapid rate then Pleurx catheter could be thought of. Please note the above document was generated using voice recognition software. It may contain grammatical, syntax or spelling errors.Any formal questions or concerns about the content, text or information contained within the body of this dictation should be directly addressed to the provider for clarification. Subjective Patient was seen and evaluated bedside. She offers no pulmonary complaints today. She has not been able to ambulate secondary her foot. Review of Systems Review of Systems: A complete 10 point review of systems was reviewed with the patient with pertinent positives and negatives as per history of present illness. All else were negative. Physical Exam Physical Exam: VITAL SIGNS - Vital signs and nursing notes were reviewed. GENERAL - 67-year-old female appearing her stated age who is in no acute distress. Communicates well with provider and answers questions appropriately. LUNGS - Auscultation reveals decreased breath sound at the LEFT sided lung base. No wheezes, rales, or rhonchi. CARDIAC - RRR with S1/S2. No murmur, rubs, or gallops appreciated. PSYCH - A&Ox3 and cooperates fully with examiner. Pt is very pleasant and interacts well with examiner. Skin: no rashes, warm and dry Lymphatic: no cervical or axillary lymphadenopathy Results & Data Results & Data Vital Signs (Past 12 Hours) Vital Signs Temp Pulse Pulse Resp BP Pulse Ox O2 Del Method 05/15/23 11:42 Room Air 05/15/23 10:53 36.4 C L 66 18 94/52 L 97 Room Air 05/15/23 07:51 36.6 C 70 18 93/51 L 94 Room Air 05/15/23 07:28 71 05/15/23 03:13 36.9 C 83 18 84/37 L 94 Room Air PG Care Time/CCT Total # of Minutes Spent Total Time Spent with Patient: Total time spent is greater than 50% in coordination of care (as documented) at patient's floor/unit and/or counseling patient: Coding Level of Care Code 86208 SUB INP/OBS CARE 2/35MIN Diagnoses Pleural effusion J90 Chest pain R07.9 Multiple pulmonary nodules R91.[address] R93.89
--- NOTE | 2023-05-15 12:42 | Palliative Care Consultation ---
Date of Consultation May 15, 2023 Assessment & Plan (1) Pain: Acute anterior chest pain radiating to back with multiple pulmonary metastatic lesions and pleural effusion - this appears to be adequately controlled currently with hydromorphone as needed. Would reassess after thoracentesis She had been on extended release morphine in the past. If this persists after thoracentesis, would consider restarting long acting opioid given the constant nature of the pain. With her current dose of hydromorphone, could start 15mg every 12 or hours with hydromorphone 2mg every four hours prn for breakthrough pain. Chronic pain left foot and ankle with bony metastases on recent imaging - this does seem to have neuropathic features. Agree with ongoing gabapentin and addition of duloxetine. Considering metastatic disease, she may benefit from steroid as well. She is established with pain clinic at [facility]. She may also benefit from outpatient palliative care follow-up at [facility] for symptom management and support. She denies constipation currently. Continue to monitor with opioid use. Dis cussed having senna at home to use as needed. History of Present Illness Reason for Consultation: pain management Requesting Physician: Dr. Ann Attending Physician: Shanell Ann MD History of Present Illness 67 yo lady with metastatic pancreatic cancer diagnosed in 2019. She is s/p Whipple procedure at [facility] in 2019. She was in remission until August of 2022 and had been on gemcitabine and abraxane since October of 2022 until starting on oral maintenance chemotherapy recently. She presented with back pain and right sided chest pain. CT shows left perihilar mass lesion with extensive multifocal pulmonary metastatic disease, progressed from December of 2022. She also has bilateral moderate pleural effusions, prevertebral/retroperitoneal mass at L1 partially incasing the aorta and multifocal osteoblastic metastatic disease of the ribs, L1, T spine and left ankle. She has been on oral hydromorphone 4mg every four hours as needed as well as gabapentin for pain. Duloxetine was started today. She is also have thoracentesis later today. She describes a band of pain around her chest to her back that is constant and has been present for about a week. Pain is 4/10 with hydromorphone which she feels is an acceptable level. She has had almost two years of pain in her left foot and ankle and has not been able to bear weight since March. She describes this as severe with weight bearing but tolerable at rest. She has occasional pins and needles sensation in her foot and is on gabapentin for neuropathic pain. She has been seeing pain management at [facility] and had an epidural injection done recently. She tells me that they have also discussed sympathetic block for her pain but nothing has really helped her to be able to bear weight again. Allergies Allergy/AdvReac Type Severity Reaction Status Date / Time No Known Drug Allergies Allergy Mild Flatulence Verified 05/13/23 16:41 FILTER REQUIRED WITH IV AdvReac Unknown Uncoded 05/13/23 16:42 FLUIDS Home Medications Medication Instructions Recorded Confirmed Type loratadine 10 mg tablet (Claritin) 10 mg PO QAM 10/04/19 05/13/23 History apixaban 2.5 mg tablet (Eliquis) 1.25 mg PO BID 01/07/21 05/13/23 History calcium carbonate 600 mg-vitamin 1 tab PO BID 08/12/22 05/13/23 History D3 10 mcg (400 unit) tablet (Calcium 600 + D(3)) yyxcfqna-qpadsfh-vyrb-lutein tablet 1 tab PO QAM 08/12/22 05/13/23 History megestrol 20 mg tablet 20 mg PO TID PRN appetitie 10/09/22 05/13/23 History gabapentin 400 mg capsule 400 mg PO TID 12/10/22 05/13/23 History dicyclomine 10 mg capsule 10 mg PO BID #20 caps 12/14/22 05/13/23 Rx diphenoxylate-atropine 2.5 1 tab PO TID PRN diarrhea #30 tabs 12/14/22 05/13/23 Rx mg-0.025 mg tablet midodrine 5 mg tablet 5 mg PO TID #90 tabs 12/14/22 05/13/23 Rx hydromorphone 4 mg tablet 4 mg PO Q6H PRN Pain 05/13/23 05/13/23 History ouxoha-brulsziz-phsanlj See Rx Instructions .Route .COMPLEX 05/13/23 05/13/23 History 24,000-76,000-120,000 unit capsule,delayed rel (Creon) olaparib 150 mg tablet (Lynparza) 300 mg PO BID 05/13/23 05/13/23 History ondansetron 8 mg disintegrating 8 mg PO Q8H PRN Nausea 05/13/23 05/13/23 History tablet pantoprazole 40 mg tablet,delayed 40 mg PO QAM 05/13/23 05/13/23 History release Patient History Medical History Anemia Closed fracture of right hip requiring operative repair with malunion History of Clostridioides difficile colitis History of DVT (deep vein thrombosis) History of pulmonary embolism Left hemiparesis Orthostatic hypotension Pancreatic cancer Metastatic pancreatic adenocarcinoma Pancytopenia Patent foramen ovale Pleural effusion Severe malnutrition Stroke Telangiectasia Thrombocytopenia Surgical History History of ERCP 07/05/2019 - biliary stricture, adenocarcinoma on cytology 08/28/2019 - biliary stricture, stent replaced History of esophagogastroduodenoscopy (EGD) EGD with EUS. 07/10/2019. pancreatic adenocarcinoma, enlarged lymph node, GB sludge History of Whipple procedure Family History Mother , age 86 C. diff Cancer possible pancreas Father , age 82 prostate cancer No problems noted. Brother Cancer prostate met cancer and melanoma Brother Cancer melanoma Sister Ytbtf-Aszhm-Chgpm disease Sister No problems noted. Son No problems noted. Son No problems noted. Social History Smoking Status: Never smoker Second Hand Exposure: No; Do You Dip or Chew Tobacco: No; Hx Alcohol Use: No Hx Substance Use: No Preferred Language: Malagasy Communication Ability: Effective Hearing Ability: Normal Masonry Supervisor Required: No Beliefs That Will Affect Care: None marital status: Current Living Situation: Spouse Current Living Situation Comment: home with spouse. 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 Feels Safe at Home: Yes Childhood Exposure to Second-Hand Smoke: No caffeine: Yes (one cup per day ) during the past year weight has: decreased > 10 lbs Dental Care, Regularly: Yes Physical Activity Frequency: 1-2 Times per Week Seatbelt Use: always Sunscreen Use: Yes Assistive Devices: Bedside Commode and Wheelchair Review of Systems Review of Systems: ESAS Pain 3/3 at worst, currently 1/3 Nausea 0/3 Drowsiness 0/3 Dyspnea 0/3 at rest Physical Exam Constitutional: + ill appearing; no acute distress Respiratory: normal respiratory effort; no labored breathing Musculoskeletal: Extremities: + muscle atrophy Neurologic: Speech / Cognition: normal cognition Results & Data Vital Signs (Past 12 Hours) Vital Signs Temp Pulse Pulse Resp BP Pulse Ox O2 Del Method 05/15/23 11:42 Room Air 05/15/23 10:53 97.5 F L 66 18 94/52 L 97 Room Air 05/15/23 07:51 97.9 F 70 18 93/51 L 94 Room Air 05/15/23 07:28 71 05/15/23 03:13 98.4 F 83 18 84/37 L 94 Room Air PG Care Time/CCT Total # of Minutes Spent Total Time Spent with Patient: Total time spent is greater than 50% in coordination of care (as documented) at patient's floor/unit and/or counseling patient: Coding Level of Care Code 92290 INT INP/OBS CARE 3/75MIN Medical Decision Making High Complexity Diagnoses Pain R52
--- NOTE | 2023-05-15 13:06 | Hospitalist Progress Note ---
Date of Service May 15, 2023 Assessment & Plan (1) Chest pain: (2) History of pulmonary embolism: (3) History of DVT (deep vein thrombosis): (4) Pancreatic cancer: (5) Pleural effusion: Plan 67 year old female with PMH significant for metastatic pancreatic adenocarcinoma s/p Whipple, PFO, history of CVA, history of DVT and PE admitted with chest pain in setting of progressive large pleural effusions. Right-sided Chest pain Pleural Effusion Presented with right sided chest pain Initial hs-Troponin 5.7 to 6.3, currently wnl Chest XRAY concerning for large left> R pleural effusions, advising correlation for possible pneumonia/pneumonitis CT chest notes -a left perihilar mass lesion as well as extensive/multifocal pulmonary metastatic disease that appears progressive from the 01/02/2023 PET examination. -Confirmed pleural effusions, likely malignant - evidence of multifocal osteoblastic metastatic disease. -large confluent mass lesion in the superior retroperitoneum just above the diaphragm which partially encases the abd aorta. No EKG changes indicating ACS Echo with EF 60-65%, stable with no acute changes Procal wnl, sputum cx pending Pt notes fluid was noted on recent PET scan at [facility]; asymptomatic at t hat time Symptoms likely related to progressing pathology and effusions in chest Empiric rocephin and doxycycline Pulm consult, appreciate recs Pulmonary performed thoracentesis on Tuesday 05/15. Advised stopping heparin and resuming Eliquis. Had episode of hypotension after thoracentesis, received a bolus of 500mls of fluids, BP recovered. Ankle Pain Pt states she has had chronic pain in left ankle Previously worked up but states the pain is progressing and now can't bear weight on it. Requesting MRI MRI ordered, radiologist requested updated xrays for comparison, so ordered as well Findings concerning for osteomyelitis vs. Charcot vs. malignancy Podiatry consult placed- appreciate recs History of pulmonary embolism: History of DVT: Chronic stable 01/2020 after Whipple procedure Takes Eliquis 2.5 mg twice daily was on Eliquis 5 mg but noted to have epistaxis so dose reduced History of HHT (Hereditary Hemorrhagic Telangiectasia) Eliquis resumed after thoracentesis on 05/15. Pancreatic cancer: chronic Status post Whipple Procedure 04/2020 at [facility]. Follows with Dr. Torres; last appt 01/30/23 (States she follows with 3 Dr. Torres's-PCP, rad onc and oncologist) Pain control- pt agreeable to palliative Care consult to help with pain management -advised long acting morphine 15mg q12 -dilaudid 2mg q4h prn for breakthrough pain Was previously on dilaudid, tylenol, gabapentin for pain inpatient. Pt agreeable to SNRI cymbalta as well for additional pain relief. Appreciate palliative care recs for pain control for this patient PCP: Dr. Torres CODE STATUS: Full Code VTE prophylaxis: On heparin Diet: Regular, consider nutrition eval for cachexia Admission and Anticipated Discharge Date Admission Date: May 13, 2023 Subjective Pt seen, states that she had a BM the day before. Was asking about going home. Had just gotten a bath by nursing and was about to go to sleep. Review of Systems Review of Systems: All systems reviewed & are unremarkable except as noted in Subjective Physical Exam Physical Exam: General: Alert, oriented. Cachectic Skin: No noted rashes or bruises Psych: Appropriate mood and affect Neuro: difficulty with movements during the exam HEENT: NC/AT CV: RRR Resp: Breath sounds clear bilaterally Abdomen: Soft, nontender, nondistended. Extremities: Left leg appears more swollen than the other, left ankle without erythema. Results & Data Results & Data Vital Signs (Past 12 Hours) Vital Signs Temp Pulse Pulse Resp BP Pulse Ox O2 Del Method 05/15/23 11:42 Room Air 05/15/23 10:53 36.4 C L 66 18 94/52 L 97 Room Air 05/15/23 07:51 36.6 C 70 18 93/51 L 94 Room Air 05/15/23 07:28 71 05/15/23 03:13 36.9 C 83 18 84/37 L 94 Room Air
[2023-05-15] MEDS ORDERED: SODIUM CHLORIDE 0.9% 500 ML IV ONE (15:50)
--- NOTE | 2023-05-15 15:56 | Procedure Note ---
Procedure Note Date of Service May 15, 2023 Note Procedure: Diagnostic therapeutic ultrasound-guided catheter thoracentesis Gravity Prospecting Observer Helper: Dr. Jose Tiwari Indication: Left pleural effusion Consent: Signed by patient and verified with timeout prior to procedure Anesthesia: 1% lidocaine without epinephrine local. Procedure: Consent was verified and timeout performed. Appropriate imaging studies were reviewed prior to the procedure. Patient was placed in a seated position and limited thoracic ultrasound was performed of the left chest. See separate imaging. Appropriate site above the diaphragm for thoracentesis was selected. The skin was prepped and draped in normal sterile fashion. Lidocaine was used for local analgesia. Fluid was aspirated via the finder needle. A small skin johnie was made with the scalpel and the catheter over the needle apparatus was advanced over the rib into the pleural space. Using the syringe one-way valve system, a total of 1000 mL's of serous fluid was removed. Procedure was terminated due to chest tightness. The catheter was removed and observed to be intact. A sterile dressing was applied. Post procedure chest x-ray was ordered. Fluid was sent for labs, culture and cytology. Patient felt lightheaded at the end of the procedure. She was laid flat. Blood pressure was repeated and it read as 98/60, her symptoms had resolved and she was answering all questions Awake, alert, oriented * 3. She was started on 500 mL of bolus. Blood pressure was repeated in 5 minutes and it was 108/68. Complications: None Blood loss: < 1 cc Coding CPT Codes Pulmonary/Thoracic - Pulmonary and Thoracic: 53639 Thoracentesis w imaging ([id number]) [facility] Procedure Codes (Charges) Pulmonary/Thoracic Procedure 1: Pulmonary and Thoracic: 26331 Thoracentesis w imaging
[2023-05-15 16:01] LABS: Partial Thromboplastin Time 27.8 Seconds (21.0-31.0)
[2023-05-15] MEDS: cefTRIAXone SODIUM 2,000 MG in DEXTROSE 5% 50 ML IV SCH (16:35)
[2023-05-15 16:52] LABS: Glucose Pleural Fluid 145 mg/dl; LDH Pleural Fluid 69 U/L; Total Protein Pleural Fluid < 3.0 gm/dl
--- NOTE | 2023-05-15 17:06 | XRay Report ---
XR chest 1V portable HISTORY: post thoracentesis COMPARISON: Chest 05/13/2023. FINDINGS: Near complete resolution of the left pleural effusion status post thoracentesis. No pneumot horax. A small right pleural effusion persists. Patchy bibasilar densities are again noted. The heart is stable in size. A right Port-A-Cath terminates in the SVC. IMPRESSION: 1. Near-complete resolution of the left pleural effusion status post thoracentesis. No pneumothorax. 2. Patchy bibasilar airspace opacities persist and may represent a pneumonia. ACT 112: Negative or not required by law. Electronically signed by: Robbi Pereyra M.D. 05/15/2023 5:05 PM
[2023-05-15 17:17] LABS: Appearance Pleural Fluid Clear; Basophils, Fluid 1 %; Color Pleural Fluid Yellow; Eosinophils, Fluid 2 %; Lymphocytes, Fluid 5 %; Mono,Macrophage,Mesothelial 27 %; Neutrophils, Fluid 65 %; RBC Pleural Fluid Auto < 2000 /uL; Source Pleural Fluid Left Lung; WBC Pleural Fluid Auto 371 /uL
[2023-05-15] MEDS: MoRPHine SULFATE CR 15 MG TABCR PO SCH (19:51)
[2023-05-15] MEDS: DOCUSATE SODIUM 100 MG CAP PO SCH (19:53)
[2023-05-15] MEDS ORDERED: APIXABAN 2.5 MG TAB PO SCH (21:00)
--- NOTE | 2023-05-15 22:19 | Orthopedic Consultation ---
Date of Consultation May 15, 2023 Assessment & Plan (1) Left foot pain: Patient seen and evaluated at bedside for ongoing left foot and ankle pain. She notes discomfort for several months recently worsening. I reviewed MRI images and MRI results. Recent MRI findings consistent Charcot Arthropathy. "Sclerotic and fragmented appearance of the cuboid, base of the fourth metatarsal, and base of the fifth metatarsal. Radiographs were requested and evaluated alongside the MRI. The radiograph appearance also appears diffusely fragmented and sclerotic. Differential includes osteomyelitis, severe degenerative/Charcot-type changes, versus metastatic disease. Severe perineal longus tenosynovitis, preferentially located at the level of the cuboid." I did review these findings with Patient. Much of today's visit was spent on education. We discussed flare up and active disease state versus periods of quiescence. Patient treatment will be focused on protection during times of disease activity. Thank you for allowing me to participate in the care of this Patient. Will continue to follow while in house. History of Present Illness Attending Physician: Nori Pierce, History of Present Illness This is a 67-year-old female seen at bedside for ongoing left foot pain and swelling. Patient has extensive past medical history including Pancreatic cancer s/p Whipple procedure April 2020, relapsed August 2022 s/p chemo as well as radiation, hereditary hemorrhagic telangiectasias, history of stroke with left- sided paresis. She is resting comfortably at bedside. Allergies Allergy/AdvReac Type Severity Reaction Status Date / Time No Known Drug Allergies Allergy Mild Flatulence Verified 05/13/23 16:41 FILTER REQUIRED WITH IV AdvReac Unknown Uncoded 05/13/23 16:42 FLUIDS Home Medications Medication Instructions Recorded Confirmed Type loratadine 10 mg tablet (Claritin) 10 mg PO QAM 10/04/19 05/13/23 History apixaban 2.5 mg tablet (Eliquis) 1.25 mg PO BID 01/07/21 05/13/23 History calcium carbonate 600 mg-vitamin 1 tab PO BID 08/12/22 05/13/23 History D3 10 mcg (400 unit) tablet (Calcium 600 + D(3)) bscsquxf-qybzaef-bzxu-lutein tablet 1 tab PO QAM 08/12/22 05/13/23 History megestrol 20 mg tablet 20 mg PO TID PRN appetitie 10/09/22 05/13/23 History gabapentin 400 mg capsule 400 mg PO TID 12/10/22 05/13/23 History dicyclomine 10 mg capsule 10 mg PO BID #20 caps 12/14/22 05/13/23 Rx diphenoxylate-atropine 2.5 1 tab PO TID PRN diarrhea #30 tabs 12/14/22 05/13/23 Rx mg-0.025 mg tablet midodrine 5 mg tablet 5 mg PO TID #90 tabs 12/14/22 05/13/23 Rx hydromorphone 4 mg tablet 4 mg PO Q6H PRN Pain 05/13/23 05/13/23 History usyneq-fjspfice-fjvqqgx See Rx Instructions .Route .COMPLEX 05/13/23 05/13/23 History 24,000-76,000-120,000 unit capsule,delayed rel (Creon) olaparib 150 mg tablet (Lynparza) 300 mg PO BID 05/13/23 05/13/23 History ondansetron 8 mg disintegrating 8 mg PO Q8H PRN Nausea 05/13/23 05/13/23 History tablet pantoprazole 40 mg tablet,delayed 40 mg PO QAM 05/13/23 05/13/23 History release Patient History Medical History Anemia Closed fracture of right hip requiring operative repair with malunion History of Clostridioides difficile colitis History of DVT (deep vein thrombosis) History of pulmonary embolism Left hemiparesis Orthostatic hypotension Pancreatic cancer Metastatic pancreatic adenocarcinoma Pancytopenia Patent foramen ovale Pleural effusion Severe malnutrition Stroke Telangiectasia Thrombocytopenia Surgical History History of ERCP 07/05/2019 - biliary stricture, adenocarcinoma on cytology 08/28/2019 - biliary stricture, stent replaced History of esophagogastroduodenoscopy (EGD) EGD with EUS. 07/10/2019. pancreatic adenocarcinoma, enlarged lymph node, GB sludge History of Whipple procedure Family History Mother , age 86 C. diff Cancer possible pancreas Father , age 82 prostate cancer No problems noted. Brother Cancer prostate met cancer and melanoma Brother Cancer melanoma Sister Nnzss-Utmqg-Hlunk disease Sister No problems noted. Son No problems noted. Son No problems noted. Social History Smoking Status: Never smoker Second Hand Exposure: No; Do You Dip or Chew Tobacco: No; Hx Alcohol Use: No Hx Substance Use: No Preferred Language: Bulgarian Communication Ability: Effective Hearing Ability: Normal Crm Technical Lead Required: No Beliefs That Will Affect Care: None marital status: Current Living Situation: Spouse Current Living Situation Comment: home with spouse. 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 Safe at Home: Yes Childhood Exposure to Second-Hand Smoke: No caffeine: Yes (one cup per day ) during the past year weight has: decreased > 10 lbs Dental Care, Regularly: Yes Physical Activity Frequency: 1-2 Times per Week Seatbelt Use: always Sunscreen Use: Yes Assistive Devices: Bedside Commode and Wheelchair Review of Systems Review of Systems: All systems reviewed & are unremarkable except as noted in HPI & below Physical Exam Constitutional: cooperative and comfortable Eyes: normal visual herrera by confrontation Neck: trachea midline Respiratory: normal respiratory effort Cardiovascular: Vessels: posterior tibial pulses present and dorsalis pedis pulses present Musculoskeletal: Extremities: + foot abnormality (Edematous, erythematous) Left Skin: normal turgor Neurologic: Absent epicritic sensation. Psychiatric: Orientation: alert and oriented x 3 Results & Data Vital Signs (Past 12 Hours) Vital Signs Temp Pulse Pulse Resp BP Pulse Ox O2 Del Method 05/15/23 22:02 36.6 C 58 L 18 91/50 L 97 Room Air 05/15/23 21:48 93/57 L 05/15/23 16:45 106/66 05/15/23 16:09 63 05/15/23 16:08 98/56 L 05/15/23 15:56 99/60 L 05/15/23 15:50 102/63 05/15/23 15:45 96/53 L 05/15/23 15:17 36.4 C L 64 18 107/50 L 94 Room Air 05/15/23 11:42 Room Air 05/15/23 10:53 36.4 C L 66 18 94/52 L 97 Room Air Diagnostic Findings [facility], [place] [phone] Magnetic Resonance Report Patient:CHARLIE DESAI Admit Date:05/13/23 MR#:[id number] Address1:[address] [facility] [facility] Acct ID:[id number] Address2:[address] Date:1955 [facility] Zip:[place] [address] Age:67 Location:2N Sex:F Room/Bed:[facility] Att Phy:Shanell Ann MD Diagnosis:SOB Jacqui Phy:Michelle Torres MD Service Date:05/14/23 Fam Phy: Interpreting Phy:Caden Fox MDAdmit Phy:Katherine Mane MD Ordering Phy:Shanell Ann MD cc: ~ Exam(s): MRI LEFT ANKLE Without Contrast EXAM: MR Left Lower Extremity Without Intravenous Contrast, Ankle CLINICAL HISTORY: Reason for exam: ankle pain, unable to weightbear. TECHNIQUE: Multiplanar magnetic resonance images of the left ankle without intravenous contrast. COMPARISON: No relevant prior studies available. FINDINGS: Intact tibiotalar, subtalar, and talonavicular joints. Intact distal Achilles tendon. Mild thickening of the medial cord plantar fascia. Edema and fragmentation throughout the cuboid, base of the fourth metatarsal, and base of the fifth metatarsal, which has the appearance of osteomyelitis; however, there is no overlying ulcer. Radiographs were requested and evaluated alongside the MRI. The radiograph appearance of the cuboid also appears diffusely fragmented and sclerotic. Correlate for infection/osteomyelitis versus Charcot-type changes. Nodes, bone neoplasm versus metastatic disease is also in the differential. Normal sinus tarsi. Mild posterior tibial and flexor hallux longus tenosynovitis could Severe perineal longus tenosynovitis, preferentially located at the level of the cuboid. Mild peroneal brevis tenosynovitis. Intact anterior extensor tendons. Scarring of the lateral ligaments and syndesmotic ligaments. No osteochondral lesion of the talar dome. IMPRESSION: Sclerotic and fragmented appearance of the cuboid, base of the fourth metatarsal, and base of the fifth metatarsal. Radiographs were requested and evaluated alongside the MRI. The radiograph appearance also appears diffusely fragmented and sclerotic. Differential includes osteomyelitis, severe degenerative/Charcot-type changes, versus metastatic disease. Severe perineal longus tenosynovitis, preferentially located at the level of the cuboid. Communications: 05/14/23 20:49 Call From Hospital on 05/14 20:47 (-04:00) Electronically signed by: Caden Fox MD 05/14/23 22:19 PM
[2023-05-16] MEDS: HYDROmorphone HCL 2 MG TAB PO PRN ×3 (04:39→16:59)
[2023-05-16] MEDS: MIDODRINE HCL 2.5 MG TAB PO SCH ×3 (06:20→16:59)
[2023-05-16] MEDS: MoRPHine SULFATE CR 15 MG TABCR PO SCH (07:42)
[2023-05-16] MEDS: DOXYCYCLINE HYCLATE 100 MG CAP PO SCH (07:43)
[2023-05-16] MEDS: guaiFENesin 600 MG TABCR PO SCH (07:43)
[2023-05-16] MEDS: DICYCLOMINE HCL 10 MG CAP PO SCH (07:43)
[2023-05-16 07:44] LABS: Basophils # (auto) 0.03 K/uL (0.00-0.20); Basophils % (auto) 0.7 %; Eosinophils # (auto) 0.03 K/uL (0.00-0.50); Eosinophils % (auto) 0.7 %; Hematocrit (blood only) 33.2 % (37.0-47.0); Hemoglobin 11.2 g/dl (12.0-16.0); Immature Granulocytes # (auto) 0.01 K/uL (0.01-0.20); Immature Granulocytes % (auto) 0.2 %; Lymphocytes # (auto) 0.22 K/uL (1.20-3.40); Lymphocytes % (auto) 4.9 %; Mean Corpuscular Hemoglobin 33.9 pg (25.0-34.0); Mean Corpuscular Hgb Conc 33.7 g/dL (32.0-36.0); Mean Corpuscular Volume 100.6 fL (80.0-100.0); Mean Platelet Volume 11.8 fL (9.4-12.4); Monocytes # (auto) 0.26 K/uL (0.11-0.59); Monocytes % (auto) 5.8 %; Neutrophils # (auto) 3.95 K/uL (1.40-6.50); Neutrophils % (auto) 87.7 %; Platelet Count 187 K/uL (130-400); RDW Coefficient of Variation 14.8 % (11.5-14.5); RDW Standard Deviation 55.1 fL (36.4-46.3)
[2023-05-16] MEDS: PANCREAZE (LIPASE 10,500U) CAP PO SCH ×2 (07:44→12:14)
[2023-05-16] MEDS: GABAPENTIN 400 MG CAP PO SCH ×2 (07:44→13:58)
[2023-05-16] MEDS: PANTOprazole 40 MG TAB PO SCH (07:44)
[2023-05-16] MEDS: DULoxetine HCL 30 MG CAP PO SCH (07:44)
[2023-05-16] MEDS: DOCUSATE SODIUM 100 MG CAP PO SCH (07:44)
[2023-05-16] MEDS: OLAPARIB PO SCH (07:45)
[2023-05-16 08:05] LABS: Albumin Level 2.5 gm/dl (3.4-5.0); Bilirubin,Total 0.6 mg/dl (0.2-1.0); Calcium 7.2 mg/dl (8.6-10.3); Est GFR (African American) 106.5 ml/min; Est GFR (Non-African American) 91.9 ml/min; Globulin 2.6 gm/dl (2.5-4.0); Magnesium 1.8 mg/dl (1.7-2.4); Phosphorus 2.5 mg/dl (2.5-4.9); Potassium 3.8 mmol/L (3.5-5.1); Total Protein 5.1 gm/dl (6.0-8.3)
--- NOTE | 2023-05-16 08:37 | XRay Report ---
XR chest 1V portable HISTORY: Shortness of breath. Left-sided thoracentesis. COMPARISON: Chest 05/15/2023. FINDINGS: No pneumothorax. Small bilateral pleural effusions and patchy bibasilar densities persist. The heart is stable in size. A right Port-A-Cath terminates in the distal SVC. No acute fractures. Sc attered pulmonary nodules within the left infrahilar mass are again noted. IMPRESSION: 1. No pneumothorax. 2. No change in the small bilateral pleural effusions and patchy bibasilar densities. 3. Scattered pulmonary nodules and a left infrahilar mass again noted. ACT 112: Negative or not required by law. Electronically signed by: Robbi Pereyra M.D. 05/16/2023 8:35 AM
[2023-05-16] MEDS: MEGESTROL ACETATE 40 MG TAB PO PRN ×2 (08:40→12:15)
--- NOTE | 2023-05-16 08:48 | Hospitalist Progress Note ---
Date of Service May 16, 2023 Assessment & Plan (1) Chest pain: (2) History of pulmonary embolism: (3) History of DVT (deep vein thrombosis): (4) Pancreatic cancer: (5) Pleural effusion: Plan 67 year old female with PMH significant for metastatic pancreatic adenocarcinoma s/p Whipple, PFO, history of CVA, history of DVT and PE admitted with chest pain in setting of progressive large pleural effusions. Right-sided Chest pain Pleural Effusion Presented with right sided chest pain Initial hs-Troponin 5.7 to 6.3, currently wnl Chest XRAY concerning for large left> R pleural effusions, advising correlation for possible pneumonia/pneumonitis CT chest notes -a left perihilar mass lesion as well as extensive/multifocal pulmonary metastatic disease that appears progressive from the 01/02/2023 PET examination. -Confirmed pleural effusions, likely malignant - evidence of multifocal osteoblastic metastatic disease. -large confluent mass lesion in the superior retroperitoneum just above the diaphragm which partially encases the abd aorta. No EKG changes indicating ACS Echo with EF 60-65%, stable with no acute changes Procal wnl, sputum cx pending Pt notes fluid was noted on recent PET scan at [facility]; asymptomatic at t hat time Symptoms likely related to progressing pathology and effusions in chest Empiric rocephin and doxycycline Pulm consult, appreciate recs Pulmonary performed thoracentesis on Tuesday 05/15. Advised stopping heparin and resuming Eliquis. Had episode of hypotension after thoracentesis, received a bolus of 500mls of fluids, BP recovered. Ankle Pain Pt states she has had chronic pain in left ankle Previously worked up but states the pain is progressing and now can't bear weight on it. Requesting MRI MRI ordered, radiologist requested updated xrays for comparison, so ordered as well Findings concerning for osteomyelitis vs. Charcot vs. malignancy Podiatry consult placed- appreciate recs History of pulmonary embolism: History of DVT: Chronic stable 01/2020 after Whipple procedure Takes Eliquis 2.5 mg twice daily was on Eliquis 5 mg but noted to have epistaxis so dose reduced History of HHT (Hereditary Hemorrhagic Telangiectasia) Eliquis resumed after thoracentesis on 05/15. Pancreatic cancer: chronic Status post Whipple Procedure 04/2020 at [facility]. Follows with Dr. Torres; last appt 01/30/23 (States she follows with 3 Dr. Torres's-PCP, rad onc and oncologist) Pain control- pt agreeable to palliative Care consult to help with pain management -advised long acting morphine 15mg q12 -dilaudid 2mg q4h prn for breakthrough pain Was previously on dilaudid, tylenol, gabapentin for pain inpatient. Pt agreeable to SNRI cymbalta as well for additional pain relief. Appreciate palliative care recs for pain control for this patient PCP: Dr. Torres CODE STATUS: Full Code VTE prophylaxis: On heparin Diet: Regular, consider nutrition eval for cachexia Admission and Anticipated Discharge Date Admission Date: May 13, 2023 Results & Data Results & Data Vital Signs (Past 12 Hours) Vital Signs Temp Pulse Pulse Resp BP Pulse Ox O2 Del Method 05/16/23 07:19 64 05/16/23 04:39 92/52 L 05/16/23 03:53 36.7 C 69 16 92/52 L 95 Room Air 05/15/23 22:01 63 05/16/23 01:34 Room Air 05/15/23 22:02 36.6 C 58 L 18 91/50 L 97 Room Air 05/15/23 21:48 93/57 L Laboratory Results Short CBC 05/16/23 Range/Units 06:33 WBC 4.50 L (4.8-10.8) K/ul Hgb 11.2 L (12.0-16.0) g/dl Hct 33.2 L (37.0-47.0) % Plt Count 187 (130-400) K/uL BMP 05/16/23 06:33 Sodium 134 L Potassium 3.8 Chloride 101 Carbon Dioxide 31 BUN 13 Creatinine 0.65 Glucose 101 H Calcium 7.2 L Liver Function 05/16/23 Range/Units 06:33 Total Bilirubin 0.6 (0.2-1.0) mg/dl AST 32 (13-39) U/L ALT 22 (7-52) U/L Alkaline Phosphatase 139 H (34-104) U/L Albumin 2.5 L (3.4-5.0) gm/dl Diagnostic Findings Chest X-Ray 05/16/23 07:00 XR chest 1V portable HISTORY: Shortness of breath. Left-sided thoracentesis. COMPARISON: Chest 05/15/2023. FINDINGS: No pneumothorax. Small bilateral pleural effusions and patchy bibasilar densities persist. The heart is stable in size. A right Port-A-Cath terminates in the distal SVC. No acute fractures. Scattered pulmonary nodules within the left infrahilar mass are again noted. IMPRESSION: 1. No pneumothorax. 2. No change in the small bilateral pleural effusions and patchy bibasilar densities. 3. Scattered pulmonary nodules and a left infrahilar mass again noted. ACT 112: Negative or not required by law. Electronically signed by: Robbi Pereyra M.D. 05/16/2023 8:35 AM Medications Administered Current Inpatient Medications Acetaminophen (Acetaminophen 325 Mg Tab) 650 mg PO Q4H PRN PRN Reason: Pain or Fever Stop: 06/12/23 14:25 Last Admin: 05/15/23 17:29 Dose: 650 mg Al Hydrox/Mg Hydrox/Simethicone (Aluminum/Magnesium Susp 30 Ml Udc) 15 ml PO Q4H PRN PRN Reason: Dyspepsia Stop: 06/12/23 14:25 Lipase/Protease/Amylase (Pancreaze (Lipase 10,500u) Cap) 2 cap PO TIDM COLT Stop: 06/13/23 11:59 Last Admin: 05/16/23 07:44 Dose: 2 cap Apixaban (Apixaban 2.5 Mg Tab) 1.25 mg PO BID COLT Stop: 06/15/23 08:59 Last Admin: 05/16/23 08:29 Dose: 1.25 mg Dicyclomine HCl (Dicyclomine Hcl 10 Mg Cap) 10 mg PO BID COLT Stop: 06/12/23 20:59 Last Admin: 05/16/23 07:43 Dose: 10 mg Docusate Sodium (Docusate Sodium 100 Mg Cap) 100 mg PO BID COLT Stop: 06/14/23 20:59 Last Admin: 05/16/23 07:44 Dose: Not Given Doxycycline Hyclate (Doxycycline Hyclate 100 Mg Cap) 100 mg PO BID COLT Stop: 05/20/23 09:01 Last Admin: 05/16/23 07:43 Dose: 100 mg Duloxetine HCl (Duloxetine Hcl 30 Mg Cap) 30 mg PO QAM COLT Stop: 06/14/23 08:59 Last Admin: 05/16/23 07:44 Dose: 30 mg Gabapentin (Gabapentin 400 Mg Cap) 400 mg PO TID [facility] Stop: 06/12/23 20:59 Last Admin: 05/16/23 07:44 Dose: 400 mg Guaifenesin (Guaifenesin 600 Mg Tabcr) 1,200 mg PO Q12 COLT Stop: 06/12/23 20:59 Last Admin: 05/16/23 07:43 Dose: 1,200 mg Heparin Sodium (Porcine) (Heparin 100 Unit/Ml 5ml Flush) 5 ml FLUSH PRN PRN PRN Reason: Flush Stop: 06/14/23 01:09 Last Admin: 05/15/23 17:23 Dose: 5 ml Hydromorphone HCl (Hydromorphone Hcl 2 Mg Tab) 2 mg PO Q4H PRN PRN Reason: Breakthrough Pain Stop: 05/27/23 16:46 Last Admin: 05/16/23 04:39 Dose: 2 mg Ceftriaxone Sodium 2,000 mg/ (Dextrose) 50 mls @ 100 mls/hr IV Q24H [facility]; Protocol Stop: 05/19/23 17:29 Magnesium Hydroxide (Magnesium Hydroxide Susp 30 Ml Udc) 30 ml PO Q12H PRN PRN Reason: Constipation Stop: 06/12/23 14:25 Megestrol Acetate (Megestrol Acetate 40 Mg Tab) 20 mg PO TID PRN PRN Reason: appetitie Stop: 06/12/23 15:45 Last Admin: 05/16/23 08:40 Dose: 20 mg Midodrine (Midodrine Hcl 2.5 Mg Tab) 5 mg PO TID@0700,1200,1600 [facility] Stop: 06/12/23 16:59 Last Admin: 05/16/23 06:20 Dose: 5 mg Morphine Sulfate (Morphine Sulfate Cr 15 Mg Tabcr) 15 mg PO Q12H [facility] Stop: 05/29/23 19:29 Last Admin: 05/16/23 07:42 Dose: 15 mg Olaparib (Lynparza)* Non-Formulary Patient's Own Med 2 each PO BID [facility] Stop: 06/12/23 20:59 Last Admin: 05/16/23 07:45 Dose: 2 tabs Ondansetron HCl (Ondansetron Inj 2 Mg/Ml 2 Ml Vial) 4 mg IV Q6H PRN PRN Reason: Nausea Stop: 06/12/23 14:25 Pantoprazole Sodium (Pantoprazole 40 Mg Tab) 40 mg PO QAM [facility] Stop: 06/13/23 08:59 Last Admin: 05/16/23 07:44 Dose: 40 mg Polyethylene Glycol (Polyethylene (Miralax) 17 Gm Pack) 17 gm PO DAILY [facility] Stop: 06/15/23 08:59 Last Admin: 05/16/23 07:45 Dose: Not Given
[2023-05-16] MEDS ORDERED: POLYETHYLENE (MIRALAX) 17 GM PACK PO SCH (09:00)
[2023-05-16] MEDS ORDERED: APIXABAN 2.5 MG TAB PO SCH (09:00)
--- NOTE | 2023-05-16 12:59 | Pulmonology Progress Note ---
Date of Service May 16, 2023 Assessment & Plan (1) Pleural effusion: (2) Chest pain: (3) Multiple pulmonary nodules: (4) Abnormal chest CT: Plan Chest x-ray 05/13/2023 personally reviewed: Portable film, bilateral pleural effusion, left> right, patchy opacities in the right lower lobe CXR today (08/16/2022) shows improvement of LEFT sided effusion. PET/CT 01/02/2023: Small bilateral pleural effusions were appreciated, left upper lobe as well as right upper lobe pulmonary nodule (stable) CT chest 05/13/2023 personally reviewed: Multiple pulmonary nodularities appreciated bilaterally, new compared to PET/CT 12/2022 Left perihilar mass versus lymphadenopathy Moderate bilateral pleural effusion No other mediastinal lymphadenopathy 2D echo 09/02/2020: EF 55-60%, mild TR, grade 2 diastolic dysfunction -- Bilateral pleural effusion Left> right Likely malignant given the worsening as well as progressive metastatic lesions Has been present since December 2022, progressively getting worse History of HFpEF with grade 2 diastolic dysfunction versus malignancy --Cough with chest congestion Follow-up procalcitonin Respiratory bio fire negative for everything Follow-up nasal MRSA -- A-fib On apixaban --History of hereditary hemorrhagic telangiectasia Plan: Can continue apixaban. Doing well s/p thoracentesis. Can contact outpatient pulm office if she is to reaccumulate. Discussed PleurX catheter placement in the future if she has rapid reaccumulation. She will continue to look into this. Mucinex along with flutter valve and incentive spirometry Thank you for allowing us to participate in the care of this patient. Pulmonary medicine will sign off at this time. Please note the above document was generated using voice recognition software. It may contain grammatical, syntax or spelling errors.Any formal questions or concerns about the content, text or information contained within the body of this dictation should be directly addressed to the provider for clarification. Admission and Anticipated Discharge Date Admission Date: May 13, 2023 Supervising Physician Co-Signing Physician Notes I saw and evaluated the patient with Walter Beltran PA-C and agree with findings and plan as documented in the note. Patient seen and examined at bedside. No acute distress, no adverse events overnight She was complaining of back pain which is chronic for her. Does state that the shortness of breath is improved. Denies any chest pain. No nausea vomiting Appetite is fair Constitutional: No acute distress HEENT: EOMI, PERRLA Respiratory system: Decreased air entry bilaterally, no wheeze, no rhonchi, mild crackles bilaterally CVS: S1-S2 positive, no murmurs or gallops Abdomen: Soft, nontender, nondistended, positive bowel sounds x4 Extremities: +2 pulses bilaterally radialis/ dorsalis pedis, no cyanosis, +1 pitting edema right lower extremity, +2 pitting edema left lower extremity (chronic) Neuro: Awake alert oriented x3, left upper and left lower extremity weakness chronic Psych: Normal mood and affect G/U: No Hines Plan: Patient clinically doing better I did explain to the patient that the likelihood of she getting the pleural fluid again on the left side is high. If it comes back really fast then Pleurx catheter could be thought of in the future No further recommendation from pulmonary perspective, will sign off Please call directly with any questions Please note the above document was generated using voice recognition software. It may contain grammatical, syntax or spelling errors.Any formal questions or concerns about the content, text or information contained within the body of this dictation should be directly addressed to the provider for clarification. Subjective Patient was seen and evaluated at bedside. She reports that she was having some intense back pain earlier today, however symptoms been well controlled with the use of morphine and Dilaudid. She denies any complaints of breathing. She has had an occasional cough, however her symptoms. Yesterday are otherwise unchanged. Review of Systems Review of Systems: Unchanged from admission. Physical Exam Physical Exam: VITAL SIGNS - Vital signs and nursing notes were reviewed. GENERAL - 67-year-old female appearing her stated age who is in no acute distress. Communicates well with provider and answers questions appropriately. LUNGS - Auscultation reveals decreased breath sound at the LEFT sided lung base. No wheezes, rales, or rhonchi. CARDIAC - RRR with S1/S2. No murmur, rubs, or gallops appreciated. PSYCH - A&Ox3 and cooperates fully with examiner. Pt is very pleasant and interacts well with examiner. Skin: no rashes, warm and dry Lymphatic: no cervical or axillary lymphadenopathy Results & Data Results & Data Vital Signs (Past 12 Hours) Vital Signs Temp Pulse Pulse Resp BP Pulse Ox O2 Del Method 05/16/23 07:30 Room Air 05/16/23 11:06 36.9 C 66 18 93/53 L 95 Room Air 05/16/23 09:56 37.0 C 69 16 90/50 L 95 Room Air 05/16/23 07:19 64 05/16/23 04:39 92/52 L 05/16/23 03:53 36.7 C 69 16 92/52 L 95 Room Air 05/16/23 01:34 Room Air PG Care Time/CCT Total # of Minutes Spent Total Time Spent with Patient: Total time spent is greater than 50% in coordination of care (as documented) at patient's floor/unit and/or counseling patient: Coding Level of Care Code 30237 SUB INP/OBS CARE 2/35MIN Diagnoses Pleural effusion J90 Chest pain R07.9 Multiple pulmonary nodules R91.[address] R93.89
[2023-05-16 14:52] VITALS: RESP 16; TEMP 98.6; O2SAT 96
--- NOTE | 2023-05-16 16:09 | Discharge Summary ---
Discharge Summary Date of Service May 16, 2023 Admission HPI Per Admitting Provider This patient is a 67 year old female that presented to the ED today with back pain and right-sided constant chest pain that she describes as 'taking her breath away'. She does note thoracic discomfort when she takes breaths, but is tender to touch at T6 spinal processes. She uses her ISB at home that does h elp, she was able to bring up yellow sputum. Deep breaths help her discomfort. She feels that her pain is separate from her back pain. She reports that it is worsening over the past few days. She reports that she has a deep cough that started a few days ago with yellow sputum. Denies hemoptysis or fevers. She recently started oral chemotherapy for maintenance this past Sunday (Rose huizar) and follows with Dr. Torres. Does note a few episodes of diarrhea over the past few days, with watery diarrhea. She noted that she had a nodule noted in her back in October 2022 for which she had a PET scan and then they found a mass s/p biopsy for metastatic pancreatic cancer. She has a complex medical history that includes metastatic pancreatic adenocarcinoma status post Whipple procedure 04/2020 at [facility], multiple lung nodules, DVT/PE in 01/2020 (on Eliquis), and a family history of hereditary hemorrhagic telangiectasia (this led to her dose reduction of Eliquis due to epistaxis.) Chest x-ray indicated vascular congestion with large left greater than right pleural effusion increased in size from December 2022. Consider infectious versus pneumonitis. Bio fire negative. She completed radiation treatment at [facility] 10/11/2022. Since October she was on gemcitabine and Abraxane every 3 weeks.She was in remission until August 2022 for which she was diagnosed with metaststic pancreatic cancer. Additionally she had a inpatient hospitalization from 12/10/2022 to 12/14/2022 with dehydration and chemo-induced diarrhea and had C-Diff. She follows also with rheumatology and pain management for which she had an appointment 04/30 for steroid injections in her lower back. Today she is not pancytopenic and electrolytes are within normal limits. Initial troponin negative. Will trend x1 but do not suspect ACS or other ischemic demand. ECG QTC 408 with an incomplete RBBB. Pt denies fevers, chills, visual or auditory changes, ESCOBEDO, dizziness, abdominal distension, appetite changes, recent falls or trauma. Appears that this unfortunate individual that presents with right sided chest pain; likely secondary to a large pleural effusion related to her metastatic pancreatic cancer. Will rule out cardiac origin while trending troponin levels, obtain an ECHO, along with obtaining a chest CT and Procalcitonin and sputum culture and start Ceftriaxone with Doxycycline. Discussed with Pulmonary who will perform a bed-side ultrasound with planned thoracentesis on Tuesday 05/15. Hold Eliquis and place on low dose heparin drip without bolus. Confirmed patient does have an advanced directive and, for now, will remain a full code while in the hospital. Patient will be admitted for further evaluation and management. Please see A/P for further details. Principal Dx & Hospital Course #1 = Principal Diagnosis (1) Chest pain: (2) History of pulmonary embolism: (3) History of DVT (deep vein thrombosis): (4) Pancreatic cancer: (5) Pleural effusion: Updated Medication List Medication Instructions Recorded Confirmed Type loratadine 10 mg tablet (Claritin) 10 mg PO QAM 10/04/19 05/13/23 History apixaban 2.5 mg tablet (Eliquis) 1.25 mg PO BID 01/07/21 05/13/23 History calcium carbonate 600 mg-vitamin 1 tab PO BID 08/12/22 05/13/23 History D3 10 mcg (400 unit) tablet (Calcium 600 + D(3)) [id number]-lutein tablet 1 tab PO QAM 08/12/22 05/13/23 History megestrol 20 mg tablet 20 mg PO TID PRN appetitie 10/09/22 05/13/23 History gabapentin 400 mg capsule 400 mg PO TID 12/10/22 05/13/23 History dicyclomine 10 mg capsule 10 mg PO BID #20 caps 12/14/22 05/13/23 Rx diphenoxylate-atropine 2.5 1 tab PO TID PRN diarrhea #30 tabs 12/14/22 05/13/23 Rx mg-0.025 mg tablet midodrine 5 mg tablet 5 mg PO TID #90 tabs 12/14/22 05/13/23 Rx hydromorphone 4 mg tablet 4 mg PO Q6H PRN Pain 05/13/23 05/13/23 History [id number] See Rx Instructions .Route .COMPLEX 05/13/23 05/13/23 History 24,000-76,000-120,000 unit capsule,delayed rel (Creon) olaparib 150 mg tablet (Lynparza) 300 mg PO BID 05/13/23 05/13/23 History ondansetron 8 mg disintegrating 8 mg PO Q8H PRN Nausea 05/13/23 05/13/23 History tablet pantoprazole 40 mg tablet,delayed 40 mg PO QAM 05/13/23 05/13/23 History release Saccharomyces boulardii 250 mg 250 mg PO DAILY #7 caps 05/16/23 Rx capsule amoxicillin 875 mg-potassium 1 tab PO BID #10 tabs 05/16/23 Rx clavulanate 125 mg tablet doxycycline hyclate 100 mg capsule 100 mg PO BID #10 caps 05/16/23 Rx duloxetine 30 mg capsule,delayed 30 mg PO QAM #30 caps 05/16/23 Rx release guaifenesin 600 mg tablet, 1,200 mg PO Q12 #20 tabs 05/16/23 Rx extended release 12 hr (Mucinex) morphine 15 mg tablet,extended 15 mg PO Q12H #30 tabs 05/16/23 Rx release Hospital Stay Data Consultations 05/13/23 14:32 Consult Pulmonology Routine 05/13/23 14:53 ED Decision to Admit Stat 05/14/23 16:50 Consult Palliative Care Routine 05/15/23 01:42 Consult Podiatry Routine Diagnostic Imagining Performed 05/13/23 14:58 US point of care ultrasound Routine 05/13/23 15:41 CT chest with contrast [CT chest diagnostic w con] Routine 05/14/23 16:46 MRI Ankle [MR ankle LT wo con] Routine 05/15/23 14:03 sono, invasive monitoring [US point of care ultrasound] Urgent Pending Results Patient Have Any Pending Studies at Discharge: No Discharge Instructions Given to Patient (Per Discharging Provider) Please take all medications as instructed on discharge list below. You were found to have a pneumonia, and were started on antibiotics on 05/13. Please complete the additional 5 days of antibiotics to complete the course. You were given a probiotic to take with your antibiotics. You had a pleural effusion that was drained by [facility] pulmonology while you were admitted. Please consider a repeat chest xray in the next 4 weeks to ensure there is no reaccumulation of fluid and your pneumonia has resolved. Mucinex for the next few days along with use of the flutter valve (green bulb) and incentive spirometer (tall gizmo with the ball) regularly. Please follow-up with your PCP within one week to order the CXR, review your medications and ensure you are clinically improved after returning home. Your PCP will give you refills on new medications as needed. You were seen by Dr. Marco A Fleming, maintenance dispatcher, for left foot pain and swelling. This was likely from Charcot arthropathy, a condition which may flare up. Please discuss outpatient treatment options/monitoring with your primary care physician on followup. You were placed on duloxetine for help with pain. Please continue gabapentin. In addition to your home dilaudid, the palliative medicine provider placed you on long acting morphine, which is being provided today at discharge. Please continue this twice daily and use dilaudid only as needed for breakthrough pain. It is recommended to follow-up with your outpatient pain clinic for monitoring of this. It was a pleasure taking care of you! Please call if you have any questions or problems. You can reach a [facility] hospitalist on duty at [facility] 24 hours a day by calling [phone]. Take care of yourself. Nori Pierce, [facility] Medical Center[facility]
[2023-05-16 16:51] VITALS: BP 99/56; PULSE 64
[2023-05-16] MEDS ORDERED: cefTRIAXone SODIUM 2,000 MG in DEXTROSE 5 % MINI-B 50 ML IV SCH (17:00)
[2023-05-17] MEDS ORDERED: SACCHAROMYCES BOULARDII 250 MG CAP PO SCH (09:00)
--- NOTE | 2023-05-19 07:10 | Coding Query ---
CODING QUERY To promote full compliance with coding requirements relating to patient care, provider participation is requested in all cases of loan examiner uncertainty. Please assist us with the question(s) below: Coding Question(s): Pt admitted with metastatic pleural effusion, pancreas primary . 05/15 progress note mentions CXR concerning for pneumonia. Discharge Summary documented Pneumonia treated with antiibiotics.. Please check below the phrase that describes the pneumonia. Thanks for your help! REJI Tran [facility] Physician's Response(s): ____x Patient was treated for Pneumonia, Present on Admission Patient was not treated for Pneumonia Other: please document: Principal Diagnosis: "that condition established after study, to be chiefly responsible for occasioning the admission of the patient to the hospital for care." Co-Existing Principal Diagnosis: "when two or more diagnoses equally meet the criteria for principal diagnosis as determined by the circumstances of admission, diagnostic work up, and/or therapy provided, and the Alphabetic Index, Tabular List, or another coding guideline does not provide sequencing direction, any one of the diagnoses may be sequenced first." "When the physician has documented what appears to be a current diagnosis in the body of the record, but has not included the diagnosis in the final diagnostic statement, the physician should be asked whether the diagnosis should be added." (Source Coding Clinic 2 QTR90. p3-4) ROVERTO
== END 2023-05-16 17:43 | disposition home health service (06) | DRG 435 ==
LOC: ED 10:33 → 2N 14:26 → SUATTDRO 14:26 → 2N 15:37